=== PATIENT | female | born 1985 ===

== ENCOUNTER 2020-09-16 10:23 | Emergency (ER) | payer OTHER, SELFPAY ==
[2020-09-16 11:04] VITALS: BP 132/71; PULSE 73; RESP 18; TEMP 36.4; O2SAT 99; BMI 30.3
--- NOTE | 2020-09-16 11:07 | ED.EYEPROB ---
HPI - Eye Problem General Chief complaint: Eye Problems Stated complaint: eye issue Time Seen by Provider: 09/16/20 11:07 Source: patient Mode of arrival: ambulatory Limitations: no limitations History of Present Illness HPI Narrative: 35 y/o female presenting with left upper eyelid swelling, pain and redness for the last 10 days. She states it has been wax/waning over this time frame but today she woke up with her eye crusted shut. She was using warm compresses intermittently, last use 2 days ago. She reports blurry vision with the eye discharge today. No foreign body sensation. She has not been wearing her contact lenses in the last 2 weeks. chief complaint: eye pain and eye redness Onset (ago): day(s) (10) Onset description: gradual and awoke with symptoms Duration: constant Location: left eye Eye Symptoms: redness, pain, discharge and blurry vision Place: home Mechanism: none Severity: moderate If Pain, Quality: aching Related Data Previous Rx's Medication Instructions Recorded gentamicin 1 appl OPHTHALMIC-LEFT TID #3.5 g 09/16/20 ibuprofen 600 mg PO Q8H PRN #15 tab 09/16/20 Allergies Allergy/AdvReac Type Severity Reaction Status Date / Time No Known Allergies Allergy Verified 09/16/20 11:06 Review of Systems Review of Systems: Constitutional: No Fever, No Chills ENT/Mouth: No sore throat, No Rhinorrhea, No Swallowing Difficulty Eyes: + Eye Pain, + Swelling, + Redness Skin: No Skin Lesions, No rash Neuro: + Headache Psych: + Anxiety/Panic, No Depression PMFSH Past Medical History Attestation statement: The following information was validated with the patient. Medical History Arthritis Social History Social History Advance Directives: No Advance Directives Information Provided: No Physical Exam Vital Signs: Vital Signs: Last Vital Signs Temp 97.6 F 09/16/20 11:04 Pulse 73 09/16/20 11:04 Resp 18 09/16/20 11:04 BP 132/71 09/16/20 11:04 Pulse Ox 99 09/16/20 11:04 Body Mass Index 30.3 Appearance: Alert. Oriented X3. No acute distress. HEENT: left upper eyelid with swelling and erythema, lid everted with visible pustule, no conjunctival injection, no drainage, EOMI, PERRLA. right eye exam is normal. CVS: Normal heart rate and rhythm. Pulses normal. Respiratory: No respiratory distress. lungs CTAB Skin: Skin warm and dry. Normal skin color. Normal skin turgor. No rashes. Extremities: no lower extremity edema Neuro: Oriented X 3. No motor deficit. No sensory deficit. Course Course Course Narrative: 35 y/o female presenting with hordeolum - will treat with topical abx ointment given new onset of discharge. Advised warm compresses are the mainstay of treatment. She will f/u with her doctor this week. MDM - Eye Problem MDM Narrative Medical decision making narrative: hordeolum Differential Diagnosis Differential diagnosis: Likely corneal abrasion and conjunctivitis Critical Care Time Critical Care Time Critical Care Time: No Discharge Plan Discharge Clinical Impression: Hordeolum Qualifiers: Hordeolum type: externum Laterality: left Eyelid: upper Qualified Code(s): H00.014 - Hordeolum externum left upper eyelid Patient Disposition: Home, Self-Care Instructions: Francie (ED) Additional Instructions: Use warm compresses to your eye several times per day for the next 3-4 days, or until symptoms are completely resolved. Use prescribed antibiotic ointment until symptoms are completely resolved. Do not wear your contacts for the next 10-14 days. Follow up with your doctor this week. Prescriptions: New gentamicin 0.3 % (3 mg/gram) ointment 1 appl ophthalmic-Left TID Qty: 3.5 RF: 0 ibuprofen 600 mg tablet 600 mg PO Q8H PRN (Reason: pain) Qty: 15 RF: 0 Interventions: ED Discharge Assessment Last Done: 09/16/20 11:18 Discharge Date/Time: 09/16/20 11:19
== END 2020-09-16 11:19 | disposition home or self-care (01) ==
PROVIDERS: Emergency Provider Internal Medicine; PCP Family Medicine
DX: H00.014 Hordeolum externum left upper eyelid (principal); H57.12 Ocular pain, left eye; Z79.899 Other long term (current) drug therapy
CPT/HCPCS: 99283

== ENCOUNTER → 2020-10-03 14:16 | Outpatient (BNVA) | payer OTHER, SELFPAY | PROVIDERS: PCP Family Medicine; Visit Provider Anesthesiology | DX: Z76.89 Persons encountering health services in other specified circumstances (principal) | CPT/HCPCS: 99202 ==

== ENCOUNTER 2020-10-04 12:56 | Outpatient (REF) | payer OTHER, SELFPAY | END 2020-10-04 12:57 | disposition home or self-care (01) | LOC: HO.LAB 12:56 | PROVIDERS: Visit Provider Internal Medicine | DX: Z20.828 Contact with and (suspected) exposure to other viral communicable diseases (principal) | CPT/HCPCS: C9803; U0003 ==

== ENCOUNTER → 2020-10-31 15:27 | Outpatient (BNVA) | payer OTHER, SELFPAY | PROVIDERS: PCP Family Medicine; Visit Provider Anesthesiology | DX: M47.816 Spondylosis without myelopathy or radiculopathy, lumbar region (principal); M43.06 Spondylolysis, lumbar region; G89.4 Chronic pain syndrome | CPT/HCPCS: 99212 ==

== ENCOUNTER 2020-11-07 16:20 | Outpatient (REF) | payer OTHER, SELFPAY ==
--- NOTE | 2020-11-07 | MR_ITS ---
EXAMINATION: MR BRAIN WITHOUT CONTRAST CLINICAL INFORMATION: Multiple neurologic symptoms. Paresthesias. Weakness. Fall. COMPARISON: Head CT 08/25/2017. TECHNIQUE: Multiplanar, multisequence imaging of the brain was performed without intravenous contrast. FINDINGS: There is no acute infarction, hemorrhage, mass, or extra-axial fluid collection. The brain parenchyma signal appears normal. The ventricles are normal in size without evidence of hydrocephalus. There is prominence of the midline retrocerebellar subarachnoid space. The cerebellar tonsils are normally positioned above the foramen magnum. The major arterial flow voids appear preserved at the skull base. There is minimal paranasal sinus mucosal thickening without fluid levels. The orbital contents appear normal. MR/MR head/brain wo con IMPRESSION: No acute infarct, mass lesion, intracranial hemorrhage, or evidence of hydrocephalus.
== END 2020-11-07 16:21 | disposition home or self-care (01) ==
LOC: HO.MRI 16:20
PROVIDERS: Visit Provider Family Medicine
DX: R53.1 Weakness (principal); R26.89 Other abnormalities of gait and mobility; R20.2 Paresthesia of skin; F41.9 Anxiety disorder, unspecified; R32 Unspecified urinary incontinence; Z91.81 History of falling
CPT/HCPCS: 70551

== ENCOUNTER → 2020-11-21 16:08 | Outpatient (BNVA) | payer OTHER, SELFPAY | PROVIDERS: PCP Family Medicine; Visit Provider Nurse Practitioner Family | DX: M47.816 Spondylosis without myelopathy or radiculopathy, lumbar region (principal); G89.4 Chronic pain syndrome; Z79.899 Other long term (current) drug therapy | CPT/HCPCS: 99212 ==

== ENCOUNTER → 2020-12-19 14:58 | Outpatient (BNVA) | payer OTHER, SELFPAY | PROVIDERS: PCP Family Medicine; Visit Provider Nurse Practitioner Family | DX: G89.4 Chronic pain syndrome (principal); M47.816 Spondylosis without myelopathy or radiculopathy, lumbar region | CPT/HCPCS: 99212 ==

== ENCOUNTER 2021-01-15 14:14 | Outpatient (REF) | payer OTHER, SELFPAY ==
[2021-01-16 11:16] LABS: SARS COV2 PCR INHOUSE NEGATIVE (Negative)
== END 2021-01-15 14:15 | disposition home or self-care (01) ==
LOC: HO.LAB 14:14
PROVIDERS: Visit Provider Internal Medicine
DX: Z20.822 Contact with and (suspected) exposure to COVID-19 (principal)
CPT/HCPCS: C9803; U0003

== ENCOUNTER → 2021-01-18 08:17 | Outpatient (BNVA) | payer OTHER, SELFPAY | PROVIDERS: PCP Family Medicine; Visit Provider Nurse Practitioner Family | DX: M47.816 Spondylosis without myelopathy or radiculopathy, lumbar region (principal); G89.4 Chronic pain syndrome | CPT/HCPCS: 99212 ==

== ENCOUNTER → 2021-02-13 14:24 | Outpatient (BNVA) | payer OTHER, SELFPAY | PROVIDERS: PCP Family Medicine; Visit Provider Nurse Practitioner Family | DX: G89.4 Chronic pain syndrome (principal); M47.816 Spondylosis without myelopathy or radiculopathy, lumbar region | CPT/HCPCS: 99212 ==

== ENCOUNTER → 2021-03-13 14:37 | Outpatient (BNVA) | payer OTHER, SELFPAY | PROVIDERS: PCP Family Medicine; Visit Provider Nurse Practitioner Family | DX: G89.4 Chronic pain syndrome (principal); M47.816 Spondylosis without myelopathy or radiculopathy, lumbar region; M46.1 Sacroiliitis, not elsewhere classified | CPT/HCPCS: 99212 ==

== ENCOUNTER → 2021-04-10 14:33 | Outpatient (BNVA) | payer OTHER, SELFPAY | PROVIDERS: PCP Family Medicine; Visit Provider Nurse Practitioner Family | DX: M47.816 Spondylosis without myelopathy or radiculopathy, lumbar region (principal); M46.1 Sacroiliitis, not elsewhere classified; G89.4 Chronic pain syndrome | CPT/HCPCS: 99212 ==

== ENCOUNTER 2021-04-12 03:50 | Emergency (ER) | payer OTHER, SELFPAY ==
--- NOTE | 2021-04-12 | ECG_ITS ---
Test Reason : CHEST PAIN Blood Pressure : / mmHG Vent. Rate : 058 BPM Atrial Rate : 058 BPM P-R Int : 150 ms QRS Dur : 080 ms QT Int : 428 ms P-R-T Axes : 033 029 044 degrees QTc Int : 420 ms Sinus bradycardia with sinus arrhythmia Otherwise normal ECG When compared to the previous EKG of No significant changes seen Referred By: Generic ED Physician Electronically Signed By:Janak Ovalles
--- NOTE | ~2021-04-12 | XR_ITS ---
EXAMINATION: XR CHEST, 2 VIEWS CLINICAL INFORMATION: Chest pain, shortness of breath COMPARISON: 07/17/2018 TECHNIQUE: PA and lateral views of the chest were obtained. FINDINGS: Lungs are clear. No consolidation, pneumothorax, or pleural effusion. Cardiac and mediastinal contours are normal. Pulmonary vasculature is unremarkable. Trachea is midline. Osseous structures are unremarkable. XR/XR chest 2V IMPRESSION: Normal chest radiographs.
[2021-04-12 04:09] VITALS: BP 115/80; PULSE 57; RESP 14; TEMP 36.9; O2SAT 98; BMI 29.1
[2021-04-12 04:24] VITALS: PULSE 57
--- NOTE | 2021-04-12 04:32 | PC.NURSE ---
This nurse at bedside with Dr Roque for external vaginal exam. No redness or discharge noted.
--- NOTE | 2021-04-12 04:38 | ED.CHESTPAIN ---
HPI - Chest Pain General Chief Complaint: Chest Pain Stated Complaint: Chest n Lungs tightness, possible UTI as well Time Seen by Provider: 04/12/21 04:09 Source: patient Mode of arrival: ambulatory Limitations: no limitations History of Present Illness HPI narrative: 36-year-old female who presents emergency department for evaluation of chest pain shortness of breath, dyspnea on exertion, vaginal wall pain, vaginal itchiness. Patient states that she has been having chest pain and shortness of breath for 1 year. She states that the the the the symptoms are episodic. She states that over the past week the symptoms have become more severe. She states that the chest pain is located in both anterior and posterior chest, the pain is a constant, pressure-like pain which is worse with breathing and worse with movement. She feels short of breath and has dyspnea on exertion. She denies fever, chills, cough. The patient had gender reassignment surgery and states that she is having redness and pain along the external vaginal wal in the area where she previously had stitches, she also has pruritus in this area She has also noticed a white discharge. She states that she does dilate her vagina as directed by her doctor and she is using a water based gel when she performs this dilation. Related Data Home Medications Medication Instructions Recorded Confirmed methylphenidate HCl 36 mg 36 mg PO QAM 10/03/20 04/10/21 tablet,extended release 24 hr melatonin 5 mg capsule 5 mg PO .hs cap 02/13/21 04/10/21 oxybutynin chloride 10 mg 10 mg PO DAILY 03/13/21 04/10/21 tablet,extended release 24 hr Previous Rx's Medication Instructions Recorded naloxone 4 mg/actuation nasal spray 4 mg INTRANASAL Q2M PRN #2 ea 11/21/20 oxycodone-acetaminophen 5 mg-325 1 tab PO TID PRN 30 Days #90 tab 03/19/21 mg tablet Allergies Allergy/AdvReac Type Severity Reaction Status Date / Time No Known Allergies Allergy Verified 04/10/21 14:50 Review of Systems Review of Systems: Yes all other systems are reviewed and are negative FOR[facility]LY [facility] Past Medical History Source: unable to obtain Medical History (Updated 04/12/21 @ 06:37 by Ronal Roque MD) Arthritis Breast implant in situ Chronic pain syndrome Spondylolysis, 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 Social History Social History Alcohol intake: current Alcohol intake frequency: holidays/special occasions only Alcohol type: wine Patient Tobacco Use Status: Former Tobacco user Use of substances other than those prescribed or required for medical reasons: No Advance Directives: No Advance Directives Information Provided: No Patient : No Physical Exam Vital Signs: Vital Signs: Last Vital Signs Temp 98.5 F 04/12/21 05:04 Pulse 57 04/12/21 05:04 Resp 16 04/12/21 05:04 BP 100/57 L 04/12/21 05:04 Pulse Ox 97 04/12/21 05:04 Body Mass Index 29.1 Const: General: cooperative and healthy appearing Orientation/consciousness: oriented to person and oriented to place Limitations: no limitations HENMT: Head: Yes normal to inspection, Yes normocephalic and Yes atraumatic Ears: external ears normal General nose exam: Normal external nose present Face and sinus: Yes normal facial exam Mouth: Normal oral and palatal mucosa present Throat: Yes posterior oropharynx normal Eyes: Periorbital: periorbital findings normal Eyelids: Yes eyelids normal Conjunctivae: conjunctivae normal Sclerae: sclerae normal Corneas: corneas normal Pupils: Equal, round and reactive pupils present Direct Ophthalmoscopy: normal light reflex Neck: Neck: Yes full ROM, Yes no lymphadenopathy, Yes no meningeal signs, Yes trachea midline and Yes supple Chest: Chest palpation & inspection: normal inspection of the chest and tenderness pectoral muscle, sternum and costal cartilage Resp: Effort & Inspection: normal respiratory effort and able to speak in complete sentences Auscultation: clear to auscultation bilaterally Cardio: Rate: regular rate Rhythm: regular rhythm Heart sounds: S1 normal heart sound present, S2 normal heart sound present and no murmurs GI: Inspection: Yes normal to inspection Palpation (GI): Soft to palpation, nontender, no guarding, not rigid and No hepatosplenomegaly present : Other: The patient's external vaginal skin does not appear to be erythematous or warm to the touch, there is no obvious discharge noted on visual inspection. Back/Spine/Pelvis: Cervical Spine: normal cervical lordosis Thoracic/Lumbar Spine: thoracic and lumbar spine normal to inspection Skin: Lesions: no lesions Rashes: no rashes Wounds: no wounds Neuro: General: oriented to person, oriented to place and no meningeal signs Cranial nerves: Yes CN's II-XII intact bilaterally and Yes Equal, round and reactive pupils present Cognition (Neuro): normal cognition Motor exam (neuro): 5/5 motor strength present throughout Extrem: General: Yes normal to inspection and Yes full ROM Psych: Appearance: well kempt Mental Status: mental status grossly normal Speech and movement: Normal speech and movement present Affect: normal affect Attitude: cooperative Thought process: Normal thought process present Thought content: Normal thought content present Course Course Course Narrative: 36-year-old female who presents emergency department for evaluation of chest pain and shortness of breath with intermittent episodes x1 year, with an episode x1 week. The patient has had gender reassignment surgery and she has also complaining of redness and itchiness to her external vaginal area as well as a whitish discharge from her vagina. Patient's physical examination did reveal chest wall tenderness otherwise was unremarkable. I did order CBC, CMP, troponin, urinalysis EKG and chest x-ray on the patient. MDM - Chest Pain Lab Data Result diagrams: 04/12/21 04:48 04/12/21 04:48 Labs: Lab Results 04/12/21 04/12/21 04/12/21 Range/Units 04:48 04:48 04:48 WBC 10.0 (4.8-10.8) X10*3/uL RBC 4.43 (4.20-5.50) X10*6/uL Hgb 13.9 (12.0-16.0) g/dl Hct 40.6 (37-47) % MCV 91.6 (80-98) fL MCH 31.4 (27.0-33.0) pg MCHC 34.2 (31.0-35.0) g/dl RDW 11.7 (11.0-16.0) % Plt Count 341 (160-400) X10*3/uL MPV 8.7 L (9.4-12.3) fL Immature Gran % (Auto) 0.4 (0.0-0.4) % Neut % (Auto) 52.3 (45-73) % Lymph % (Auto) 34.0 (20-40) % [place] % (Auto) 11.3 H (2-11) % Eos % (Auto) 1.8 (0-4) % Baso % (Auto) 0.2 (0-2) % Lymph # (Auto) 3.4 (1.2-4.9) X10*3/uL [place] # (Auto) 1.1 (0.1-1.2) X10*3/uL Eos # (Auto) 0.2 (0.0-0.4) X10*3/uL Baso # (Auto) 0.0 (0.0-0.2) X10*3/uL Abs Immat Gran (auto) 0.04 H (0.00-0.03) X10*3/uL Absolute Neuts (auto) 5.2 (2.0-8.3) X10*3/uL Absolute Nucleated RBC 0.000 (0.0-0.012) X10*3/uL Nucleated RBC % (auto) 0.0 (0.0-0.2) /100WBC Sodium 140 (135-145) mmol/L Potassium 4.1 (3.3-5.1) mmol/L Chloride 106 (96-108) mmol/L Carbon Dioxide 25 (22-29) mmol/L Anion Gap 13 (12-20) BUN 16 (9-16) mg/dL Creatinine 0.73 (0.5-1.4) mg/dL Estim Creat Clear Calc 116.6 Estimated GFR > 60 Random Glucose 98 (60-115) mg/dL Calcium 9.4 (8.4-10.2) mg/dL Total Bilirubin 0.4 (0.0-1.0) mg/dL AST 18 (5-31) U/L ALT 17 (0-31) U/L Alkaline Phosphatase 85 (39-117) U/L Troponin I High Sens < 3.5 (<3.5-17.0) ng/L Total Protein 6.7 (6.5-8.0) g/dL Albumin 4.3 (3.5-5.0) g/dL Urine Color Urine Appearance Urine pH (5.0-8.0) Ur Specific [place] (1.005-1.025) Urine Protein (NEG-TRACE) MG/DL Urine Glucose (UA) (NEG) MG/DL Urine Ketones (NEG) MG/DL Urine Blood (NEG) Urine Nitrite (NEG) Ur Leukocyte Esterase (NEG) 04/12/21 Range/Units 05:15 WBC (4.8-10.8) X10*3/uL RBC (4.20-5.50) X10*6/uL Hgb (12.0-16.0) g/dl Hct (37-47) % MCV (80-98) fL MCH (27.0-33.0) pg MCHC (31.0-35.0) g/dl RDW (11.0-16.0) % Plt Count (160-400) X10*3/uL MPV (9.4-12.3) fL Immature Gran % (Auto) (0.0-0.4) % Neut % (Auto) (45-73) % Lymph % (Auto) (20-40) % [place] % (Auto) (2-11) % Eos % (Auto) (0-4) % Baso % (Auto) (0-2) % Lymph # (Auto) (1.2-4.9) X10*3/uL [place] # (Auto) (0.1-1.2) X10*3/uL Eos # (Auto) (0.0-0.4) X10*3/uL Baso # (Auto) (0.0-0.2) X10*3/uL Abs Immat Gran (auto) (0.00-0.03) X10*3/uL Absolute Neuts (auto) (2.0-8.3) X10*3/uL Absolute Nucleated RBC (0.0-0.012) X10*3/uL Nucleated RBC % (auto) (0.0-0.2) /100WBC Sodium (135-145) mmol/L Potassium (3.3-5.1) mmol/L Chloride (96-108) mmol/L Carbon Dioxide (22-29) mmol/L Anion Gap (12-20) BUN (9-16) mg/dL Creatinine (0.5-1.4) mg/dL Estim Creat Clear Calc Estimated GFR Random Glucose (60-115) mg/dL Calcium (8.4-10.2) mg/dL Total Bilirubin (0.0-1.0) mg/dL AST (5-31) U/L ALT (0-31) U/L Alkaline Phosphatase (39-117) U/L Troponin I High Sens (<3.5-17.0) ng/L Total Protein (6.5-8.0) g/dL Albumin (3.5-5.0) g/dL Urine Color YELLOW Urine Appearance CLEAR Urine pH 6.0 (5.0-8.0) Ur Specific [place] >= 1.030 H (1.005-1.025) Urine Protein NEG (NEG-TRACE) MG/DL Urine Glucose (UA) NEG (NEG) MG/DL Urine Ketones NEG (NEG) MG/DL Urine Blood NEG (NEG) Urine Nitrite NEG (NEG) Ur Leukocyte Esterase NEG (NEG) ECG Data ECG #1: Attestation: I personally reviewed and interpreted this ECG as follows: Interpretation: 0412: Sinus bradycardia with a rate of 58, normal MT, QRS and QTC intervals, no ST segment elevation, no ST segment depression, no PACs, no PVCs, inverted T-wave in V1, no old EKG for comparison. Discharge Plan Discharge Clinical Impression: Chest pain, Pruritus of vagina Patient Disposition: Home, Self-Care Instructions: Costochondritis (ED) Additional Instructions: Your laboratory evaluation was normal. Your chest x-ray was unremarkable. Your EKG was normal Your urinalysis was normal with no evidence of a urine infection At this time, I believe that your chest pain is caused by inflammation of the joints of your chest (costochondritis). Take ibuprofen 200 mg pills, 3 pills every 6 hours as needed for pain. Take Tylenol (acetaminophen) 500 mg pills, 1 pills every 4 to 6 hours as needed for pain. I do not have a clear cause for the itchiness in your vaginal area, Take Benadryl 25 mg, 1 pill at night to see if this improves the itchiness. Follow-up with your doctor in 2 days, and make sure you discuss the vaginal itchiness with your provider Please return to the emergency department if your symptoms get worse or if you develop any symptoms that are concerning to you. Prescriptions: No Action Narcan 4 mg/actuation spray,non-aerosol 4 mg intranasal Q2M PRN (Reason: opioid overdose) Qty: 2 RF: 0 melatonin 5 mg capsule 5 mg PO .hs RF: 0 oxybutynin chloride 10 mg tablet extended release 24hr 10 mg PO DAILY RF: 0 oxycodone-acetaminophen [Percocet] 5-325 mg tablet 1 tab PO TID PRN (Reason: pain) 30 Days Qty: 90 RF: 0 methylphenidate HCl 36 mg tablet extended release 24hr 36 mg PO QAM RF: 0
[2021-04-12 04:54] LABS: MANUAL DIFF FLAG NO
[2021-04-12 04:56] LABS: Basophils Percent Auto 0.2 % (0-2); Eosinophils Absolute Auto 0.2 X10*3/uL (0.0-0.4); Eosinophils Percent Auto 1.8 % (0-4); Hematocrit 40.6 % (37-47); Hemoglobin 13.9 g/dl (12.0-16.0); Imm Gran Abs Auto 0.04 X10*3/uL (0.00-0.03); Imm Gran Pct Auto 0.4 % (0.0-0.4); Lymphocytes Absolute Auto 3.4 X10*3/uL (1.2-4.9); Mean Corpuscular HGB Conc 34.2 g/dl (31.0-35.0); Mean Corpuscular Hemoglobin 31.4 pg (27.0-33.0); Mean Corpuscular Volume 91.6 fL (80-98); Mean Platelet Volume 8.7 fL (9.4-12.3); Monocytes Absolute Auto 1.1 X10*3/uL (0.1-1.2); Monocytes Percent Auto 11.3 % (2-11); Neutrophils Absolute Auto 5.2 X10*3/uL (2.0-8.3); Neutrophils Percent Auto 52.3 % (45-73); Platelet Count 341 X10*3/uL (160-400); Red Blood Count 4.43 X10*6/uL (4.20-5.50); Red Cell Distribution Width 11.7 % (11.0-16.0)
[2021-04-12 05:04] VITALS: BP 100/57; PULSE 57; RESP 16; TEMP 36.9; O2SAT 97
[2021-04-12 05:18] LABS: Alanine Aminotransferase 17 U/L (0-31); Albumin Level 4.3 g/dL (3.5-5.0); Alkaline Phosphatase 85 U/L (39-117); Anion Gap 13 (12-20); Aspartate Amino Transferase 18 U/L (5-31); Bilirubin Total 0.4 mg/dL (0.0-1.0); Blood Urea Nitrogen 16 mg/dL (9-16); Calcium 9.4 mg/dL (8.4-10.2); Carbon Dioxide 25 mmol/L (22-29); Chloride 106 mmol/L (96-108); Creatinine Clr Calc Pharmacy 116.6; Estimated Glomerular Filt Rate > 60; Glucose Random 98 mg/dL (60-115); Potassium 4.1 mmol/L (3.3-5.1); Sodium 140 mmol/L (135-145); Total Protein 6.7 g/dL (6.5-8.0)
[2021-04-12 05:22] LABS: Glucose Urine UA NEG (NEG); Leukocyte Esterase Urine NEG (NEG); Nitrite Urine NEG (NEG); Specific Gravity - Urine >= 1.030 (1.005-1.025); Urine Blood NEG (NEG); Urine Ketones NEG (NEG); Urine Protein NEG (NEG-TRACE)
[2021-04-12 05:24] LABS: Appearance Urine CLEAR; Color Urine YELLOW
[2021-04-12 05:24] LABS: Troponin-I High Sensitivity < 3.5 ng/L (<3.5-17.0)
== END 2021-04-12 06:56 | disposition home or self-care (01) ==
PROVIDERS: Emergency Provider Emergency Medicine Emergency Medical Services; PCP Family Medicine
DX: R07.9 Chest pain, unspecified (principal); L29.2 Pruritus vulvae
CPT/HCPCS: 36415; 71046; 80053; 81003; 84484; 85025; 93005; 99284

== ENCOUNTER 2021-04-17 01:27 | Emergency (ER) | payer OTHER, SELFPAY ==
[2021-04-17 01:30] VITALS: BP 112/70; PULSE 60; RESP 16; TEMP 36.8; O2SAT 99; BMI 29.0
--- NOTE | 2021-04-17 02:15 | ED.FEMALEGU ---
HPI - Female Genitourinary General Chief complaint: Urogenital-Female Stated complaint: Vaginal Swelling Time Seen by Provider: 04/17/21 01:38 Source: patient Mode of arrival: ambulatory Limitations: no limitations History of Present Illness HPI Narrative: patient transgender male to female noticed small swelling of right labia for last few days was seen here on 04/12 now the swelling is getting bigger and more painful no vaginal discharge no fever no surrounding erythema Related Data Home Medications Medication Instructions Recorded Confirmed methylphenidate HCl 36 mg 36 mg PO QAM 10/03/20 04/10/21 tablet,extended release 24 hr melatonin 5 mg capsule 5 mg PO .hs cap 02/13/21 04/10/21 oxybutynin chloride 10 mg 10 mg PO DAILY 03/13/21 04/10/21 tablet,extended release 24 hr Previous Rx's Medication Instructions Recorded naloxone 4 mg/actuation nasal spray 4 mg INTRANASAL Q2M PRN #2 ea 11/21/20 oxycodone-acetaminophen 5 mg-325 1 tab PO TID PRN 30 Days #90 tab 04/16/21 mg tablet amoxicillin-pot clavulanate 1 tab PO BID #20 tab 04/17/21 [Augmentin] ibuprofen 600 mg PO Q6H PRN #20 tab 04/17/21 Allergies Allergy/AdvReac Type Severity Reaction Status Date / Time No Known Allergies Allergy Verified 04/10/21 14:50 PMFSH Past Medical History Medical History Arthritis Breast implant in situ Chronic pain syndrome Spondylolysis, 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 Social History Social History Alcohol intake: current Alcohol intake frequency: holidays/special occasions only Alcohol type: wine Patient Tobacco Use Status: Former Tobacco user Advance Directives: No Advance Directives Information Provided: No Patient : No Physical Exam Vital Signs: Vital Signs: Last Vital Signs Temp 98.2 F 04/17/21 01:30 Pulse 60 04/17/21 01:30 Resp 16 04/17/21 01:30 BP 112/70 04/17/21 01:30 Pulse Ox 99 04/17/21 01:30 Body Mass Index 29.0 Const: General: comfortable and no acute distress HENMT: Head: Yes normocephalic Resp: Effort & Inspection: normal respiratory effort Cardio: Palpation: normal PMI Rate: regular rate Rhythm: regular rhythm GI: Inspection: Yes normal to inspection Palpation (GI): Soft to palpation and nontender : External Female Exam: external swelling ( right labial fold with small pointing abscess) Procedures Abscess I/D Site: other ( vaginal) Side (if applicable): right Local Anesthetic: lidocaine 2% Amount of anesthesia used (mL): 1 Technique: other ( spontaneous rupture of abscess) Amount of fluid expressed (mL): 1 Sent for culture/gram staining?: No Discharge Plan Discharge Clinical Impression: Abscess of vagina Patient Disposition: Home, Self-Care Instructions: Abscess Incision and Drainage (DC) Additional Instructions: local care as advised take antibiotics for infection. Follow with PCP Prescriptions: New ibuprofen 600 mg tablet 600 mg PO Q6H PRN (Reason: pain) Qty: 20 RF: 0 amoxicillin-pot clavulanate [Augmentin] 875-125 mg tablet 1 tab PO BID Qty: 20 RF: 0 No Action Narcan 4 mg/actuation spray,non-aerosol 4 mg intranasal Q2M PRN (Reason: opioid overdose) Qty: 2 RF: 0 melatonin 5 mg capsule 5 mg PO .hs RF: 0 oxybutynin chloride 10 mg tablet extended release 24hr 10 mg PO DAILY RF: 0 oxycodone-acetaminophen [Percocet] 5-325 mg tablet 1 tab PO TID PRN (Reason: pain) 30 Days Qty: 90 RF: 0 methylphenidate HCl 36 mg tablet extended release 24hr 36 mg PO QAM RF: 0
[2021-04-17] MEDS: Lidocaine HCl 2 % MPF 5 ML VIAL INFILTRATI (02:39)
[2021-04-17] MEDS: Amoxicillin/Potassium Clav 875 MG TABLET PO (02:39)
== END 2021-04-17 03:08 | disposition home or self-care (01) ==
PROVIDERS: Emergency Provider Internal Medicine; PCP Family Medicine
DX: N76.4 Abscess of vulva (principal); N76.0 Acute vaginitis; F64.0 Transsexualism
CPT/HCPCS: 56405; 99283; 99284

== ENCOUNTER 2021-04-17 06:04 | Outpatient (REF) | payer OTHER, SELFPAY ==
--- NOTE | ~2021-04-17 | FL_ITS ---
EXAMINATION: XR FLUOROSCOPY WITH IMAGES CLINICAL INFORMATION: M46.1 - Sacroiliitis, not elsewhere classified COMPARISON: MR lumbar spine 09/01/2019 TECHNIQUE: Fluoroscopy performed by Billie Sher NP. Fluoroscopy time: 0.3 minutes DAP: 3.26 Gycm2 Images: 4 FINDINGS: There are spinal needles overlying the bilateral L5 neural foramina. In addition, there are 2 spinal needles overlying the left mid sacrum and 2 spinal needles overlying the right mid sacrum, likely at the bilateral S1 and S2 foramen. FL/FL guidance in treatment room IMPRESSION: Fluoroscopy for pain management procedures.
== END 2021-04-17 06:05 | disposition home or self-care (01) ==
LOC: HO.RADIR 06:04
PROVIDERS: Visit Provider Internal Medicine
DX: M46.1 Sacroiliitis, not elsewhere classified (principal)
CPT/HCPCS: 27096; J3300; Q9967

== ENCOUNTER → 2021-05-08 14:10 | Outpatient (BNVA) | payer OTHER, SELFPAY | PROVIDERS: PCP Family Medicine; Visit Provider Nurse Practitioner Family | DX: M47.816 Spondylosis without myelopathy or radiculopathy, lumbar region (principal); M46.1 Sacroiliitis, not elsewhere classified; G89.4 Chronic pain syndrome; Z79.899 Other long term (current) drug therapy | CPT/HCPCS: 99212 ==

== ENCOUNTER → 2021-05-24 09:01 | Outpatient (BNVA) | payer OTHER, SELFPAY | PROVIDERS: PCP Family Medicine; Visit Provider Internal Medicine | DX: M46.1 Sacroiliitis, not elsewhere classified (principal) | CPT/HCPCS: 99212 ==

== ENCOUNTER 2021-05-24 09:49 | Emergency (ER) | payer OTHER, SELFPAY ==
[2021-05-24 10:58] VITALS: BP 135/95; PULSE 65; RESP 18; TEMP 37; O2SAT 98; BMI 29.7
--- NOTE | 2021-05-24 11:37 | ED.WOUNDLAC ---
HPI - Wound/Laceration General Chief Complaint: Wound/Laceration Stated Complaint: pt had surgery, most likley pulled stitches Time Seen by Provider: 05/24/21 11:37 Source: patient Mode of arrival: ambulatory Limitations: no limitations History of Present Illness HPI narrative: Patient presents to ED for evaluation of her breast implants. Patient states she was doing some house works and thinks some of the stitches came out. Patient had surgery on the 16 of May. Patient states no nipple discharge, breast swelling, redness, chest pain, shortness of breath, swellling of lower extremities, pain on inspiration calf pain, coughing up blood, fever, or chills. Related Data Home Medications Medication Instructions Recorded Confirmed methylphenidate HCl 36 mg 36 mg PO QAM 10/03/20 05/08/21 tablet,extended release 24 hr melatonin 5 mg capsule 5 mg PO .hs cap 02/13/21 05/08/21 oxybutynin chloride 10 mg 10 mg PO DAILY 03/13/21 05/08/21 tablet,extended release 24 hr Previous Rx's Medication Instructions Recorded naloxone 4 mg/actuation nasal 4 mg INTRANASAL Q2M PRN #2 ea 11/21/20 spray (Narcan) ibuprofen 600 mg tablet 600 mg PO Q6H PRN #20 tab 04/17/21 oxycodone-acetaminophen 5 mg-325 1 tab PO TID PRN 30 Days #90 tab 05/08/21 mg tablet (Percocet) Allergies Allergy/AdvReac Type Severity Reaction Status Date / Time No Known Allergies Allergy Verified 05/24/21 09:20 Review of Systems Review of Systems: Yes all other systems are reviewed and are negative Constitutional: Constitutional: Reports as per HPI and Reports no additional constitutional complaints Eyes: Eyes: Reports as per HPI and Reports no additional eye complaints ENT: Reports system reviewed and no additional complaints, except as documented and Reports as per HPI Cardiovascular: Cardiovascular: Reports as per HPI and Reports no additional cardiovascular complaints Respiratory: Respiratory: Reports as per HPI and Reports no additional respiratory complaints Gastrointestinal: Gastrointestinal: Reports as per HPI and Reports no additional gastrointestinal complaints Musculoskeletal: Musculoskeletal: Reports no additional musculoskeletal complaints and Reports as per HPI Integumentary/Breasts: Skin/Breast: Reports system reviewed and no additional complaints, except as docu and Reports as per HPI Comments: Stitches Neurologic: Reports system reviewed and no additional complaints, except as documented and Reports as per HPI Psychiatric: Psychiatric: Reports no additional psychiatric complaints and Reports as per HPI [facility] Past Medical History Medical History Arthritis Breast implant in situ Chronic pain syndrome Spondylolysis, 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 Social History Social History Alcohol intake: current Alcohol intake frequency: holidays/special occasions only Alcohol type: wine Patient Tobacco Use Status: Former Tobacco user Advance Directives: Yes Advance Directives Information Provided: Yes Advance Directives on File: No Patient : No Physical Exam Vital Signs: Vital Signs: Last Vital Signs Temp 98.6 F 05/24/21 10:58 Pulse 65 05/24/21 10:58 Resp 18 05/24/21 10:58 BP 135/95 H 05/24/21 10:58 Pulse Ox 98 05/24/21 10:58 Body Mass Index 29.7 Const: General: cooperative, healthy appearing, comfortable, no acute distress, well developed, alert and awake Orientation/consciousness: patient oriented x3 HENMT: Head: Yes normal to inspection, Yes No palpable skull fracture present, Yes normocephalic and Yes atraumatic Ears: hearing grossly normal bilaterally, external ears normal and TM's normal bilaterally Eyes: General: appearance normal, both eyes and all related structures Neck: Neck: Yes normal visual inspection, Yes full ROM, Yes no lymphadenopathy, Yes no meningeal signs, Yes trachea midline, Yes supple and No tender Chest: Chest palpation & inspection: normal inspection of the chest and normal palpation of entire chest wall Chest/axillae images: 1. Patient has stitches that were stithced inward. Positive for mild wound dehiscence some stitches missing. Breast negative for any erythema, swelling, tenderness, pus discharge, nipple discharge or deformity. 2. Patient has stitches that were stitched inward. Positive for mild wound dehiscence some stitches missing. Breast negative for any erythema, swelling, tenderness, pus discharge, nipple discharge or deformity. Resp: Effort & Inspection: normal respiratory effort and able to speak in complete sentences Cardio: Jugular venous distension: no JVD Heart sounds: S1 normal heart sound present and S2 normal heart sound present GI: Inspection: Yes normal to inspection and No abdominal wall ecchymosis Palpation (GI): Soft to palpation, not firm, nontender, no guarding and not rigid : General: No CVA tenderness and Yes no CVA tenderness Back/Spine/Pelvis: Back: no CVA tenderness, No CVA tenderness and No back tenderness Skin: General skin exam: no rashes or lesions noted and elasticity normal Neuro: General: patient oriented x3, gait normal, no meningeal signs and CN's II-XI intact bilaterally Cranial nerves: Yes CN's II-XII intact bilaterally Extrem: General: Yes normal to inspection and Yes full ROM Psych: Appearance: grossly normal, well kempt and not disheveled Course Course Course Narrative: Breast evaluated. Reevaluation(s) Reevaluation #1: Positive for mild wound dehiscence. Negative for signs of cellulitis or abscess. Patient is safe for discharge Time: 11:51 MDM - Wound/Laceration MDM Narrative Medical decision making narrative: Wound dehiscence Discharge Plan Discharge Clinical Impression: Dehiscence of wound Patient Disposition: Home, Self-Care Instructions: Wound Dehiscence (ED) Additional Instructions: Your breast exam negative for signs of infection. You have mild wound dehiscence which does not require any further management. Please follow-up with your surgeon. Return to the ED for any chest pain, shortness of breath, swelling of breast, redness, pus discharge, foul odor, fever, chills, leg swelling, calf pain, chest on inspiration, coughing up blood, or any other concerning symptoms. Prescriptions: No Action ibuprofen 600 mg tablet 600 mg PO Q6H PRN (Reason: pain) Qty: 20 RF: 0 Narcan 4 mg/actuation spray,non-aerosol 4 mg intranasal Q2M PRN (Reason: opioid overdose) Qty: 2 RF: 0 melatonin 5 mg capsule 5 mg PO .hs RF: 0 oxybutynin chloride 10 mg tablet extended release 24hr 10 mg PO DAILY RF: 0 methylphenidate HCl 36 mg tablet extended release 24hr 36 mg PO QAM RF: 0 oxycodone-acetaminophen [Percocet] 5-325 mg tablet 1 tab PO TID PRN (Reason: pain) 30 Days Qty: 90 RF: 0 Interventions: ED Discharge Assessment Last Done: 05/24/21 11:59 Discharge Date/Time: 05/24/21 12:00 Print Language: Pakistani
== END 2021-05-24 12:00 | disposition home or self-care (01) ==
PROVIDERS: Emergency Provider Emergency Medicine Emergency Medical Services; PCP Family Medicine
DX: T81.31XA Disruption of external operation (surgical) wound, not elsewhere classified, initial encounter (principal); Z98.82 Breast implant status
CPT/HCPCS: 99283

== ENCOUNTER 2021-05-26 22:00 | Emergency (ER) | payer OTHER, SELFPAY ==
--- NOTE | ~2021-05-26 | XR_ITS ---
EXAMINATION: XR ANKLE, RIGHT CLINICAL INFORMATION: Ankle pain with question fracture COMPARISON: Right ankle radiographs 02/25/2018 TECHNIQUE: AP, lateral, and mortise views of the right ankle. FINDINGS: The bones and soft tissues are normal aside from mild soft tissue swelling laterally. No fracture. Alignment is anatomic. Joint spaces are maintained. No joint effusion. XR/XR ankle RT 2V IMPRESSION: Lateral soft tissue swelling. No osseous abnormality.
[2021-05-26 22:51] VITALS: BP 108/70; PULSE 70; RESP 16; TEMP 36.7; O2SAT 98; BMI 30.7
--- NOTE | 2021-05-27 00:25 | ED_ITS ---
HPI - Extremity Injury (Lower) General Chief Complaint: Extremity Injury, Lower Stated Complaint: fall Time Seen by Provider: 05/26/21 23:31 Source: patient Mode of arrival: ambulatory Limitations: no limitations History of Present Illness HPI Narrative: 36-year-old female with past medical history of chronic pain syndrome presents with right ankle and knee pain after falling through the floor boards on her porch. She has right ankle swelling and pain, is able to walk but with a limp, and has some knee pain. She does not report any other injuries from the fall. MD complaint: knee injury and ankle injury Onset (ago): hour(s) (Within the hour of arrival) Type of Injury: blunt Place: home Severity: moderate Severity scale (1-10): 6 Relieving factors: nothing Exacerbating factors: weight bearing, movement and palpation Context: fall Associated symptoms: swelling and able to partially bear weight Other symptoms: none Related Data Home Medications Medication Instructions Recorded Confirmed methylphenidate HCl 36 mg 36 mg PO QAM 10/03/20 05/08/21 tablet,extended release 24 hr melatonin 5 mg capsule 5 mg PO .hs cap 02/13/21 05/08/21 oxybutynin chloride 10 mg 10 mg PO DAILY 03/13/21 05/08/21 tablet,extended release 24 hr Previous Rx's Medication Instructions Recorded naloxone 4 mg/actuation nasal 4 mg INTRANASAL Q2M PRN #2 ea 11/21/20 spray (Narcan) ibuprofen 600 mg tablet 600 mg PO Q6H PRN #20 tab 04/17/21 oxycodone-acetaminophen 5 mg-325 1 tab PO TID PRN 30 Days #90 tab 05/08/21 mg tablet (Percocet) ibuprofen 600 mg tablet 600 mg PO Q6H PRN #60 tab 05/27/21 Allergies Allergy/AdvReac Type Severity Reaction Status Date / Time No Known Allergies Allergy Verified 05/26/21 22:51 Review of Systems Review of Systems: Constitutional: No Fever, No Chills ENT/Mouth: No Ear Pain, No Hoarseness, No sore throat Eyes: No Eye Pain, No Swelling, No Redness, No Foreign Body Cardiovascular: No Chest Pain, No SOB Respiratory: No Cough, No Dyspnea Gastrointestinal: No Nausea, No Vomiting, No Diarrhea, No abdominal Pain Genitourinary: No Dysuria, No Hematuria Musculoskeletal: positive right ankle and bilateral pain, No Myalgias, No Joint Swelling Skin: No Skin lacerations, No rash Neuro: No Weakness, No Numbness, No Paresthesias, No Loss of Consciousness, No Dizziness, No Headache Psych: No Anxiety/Panic, No Depression Heme/Lymph: no easy bruising, no Lymphadenopathy Endocrine: No Polyuria, No Polydipsia [facility] Past Medical History Attestation statement: The following information was validated with the patient. 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 Oriented X3. No acute distress. Eyes: Pupils equal, round and reactive to light. ENT: Pharynx normal. Neck: Normal inspection. Neck supple. CVS: Normal heart rate and rhythm. Pulses normal. Respiratory: No respiratory distress. Breath sounds normal. Abdomen: Soft and nontender. Skin: Skin warm and dry. Normal skin color. Normal skin turgor. Extremities: Right lateral malleolar process swelling, bruising, and tenderness to palpation. Decreased flexion extension internal and external rotation secondary to swelling and pain. Brisk capillary refill and equal pulses to bilateral lower extremities. Neuro: No motor deficit. No sensory deficit. Course Course Course Narrative: 36-year-old female presents with right ankle injury after fall ing through some porch boards at her home. X-rays are negative for fracture and dislocation, physical presentation is consistent with sprain with swelling, bruising, and decreased range of motion to the right lower extremity. She is describing bilateral knee pain, but physical exam is negative with negative anterior-posterior drawers bilaterally and no indication of bruising, swelling, or tenderness to palpation. Order for Rocco wrap, air splint, patient does have a cane with her at this time. Patient verbalizes understanding of and agrees to plan of care discharge home. MDM - Extremity Injury (Lower) Differential Diagnosis Differential diagnosis: Likely ankle sprain and strain and ankle fracture Medical Records Attestation: I reviewed the patient's medical records. Imaging Data Ankle x-ray: Attestation: I personally reviewed and interpreted this imaging study as follows: Radiologist's impression: EXAMINATION: XR ANKLE, RIGHT CLINICAL INFORMATION: Ankle pain with question fracture? COMPARISON: Right ankle radiographs 02/25/2018? TECHNIQUE: AP, lateral, and mortise views of the right ankle. FINDINGS: The bones and soft tissues are normal aside from mild soft tissue swelling laterally. No fracture. Alignment is anatomic. Joint spaces are maintained. No joint effusion.? XR/XR ankle RT 2V IMPRESSION: Lateral soft tissue swelling. No osseous abnormality. Discharge Plan Discharge Clinical Impression: Ankle sprain and strain Patient Disposition: Home, Self-Care Instructions: Ankle Sprain (ED), Ankle Stirrup Splint (ED) Additional Instructions: You were evaluated for injury sustained from falling through your porch floor. Your x-rays are negative for fracture and dislocation. Your presentation is consistent with an ankle sprain. Please use Rocco wrap and stirrup air splint for comfort. Take Motrin 600 mg every 6 hours as needed for pain management. Rest ice and elevate the ankle to help reduce pain and swelling. Thank you for choosing this emergency department for evaluation. Please follow-up with primary care physician as needed. Return to the emergency department for any new, concerning, or worsening symptoms. Prescriptions: New ibuprofen 600 mg tablet 600 mg PO Q6H PRN (Reason: pain) Qty: 60 RF: 0 No Action ibuprofen 600 mg tablet 600 mg PO Q6H PRN (Reason: pain) Qty: 20 RF: 0 Narcan 4 mg/actuation spray,non-aerosol 4 mg intranasal Q2M PRN (Reason: opioid overdose) Qty: 2 RF: 0 melatonin 5 mg capsule 5 mg PO .hs RF: 0 oxybutynin chloride 10 mg tablet extended release 24hr 10 mg PO DAILY RF: 0 methylphenidate HCl 36 mg tablet extended release 24hr 36 mg PO QAM RF: 0 oxycodone-acetaminophen [Percocet] 5-325 mg tablet 1 tab PO TID PRN (Reason: pain) 30 Days Qty: 90 RF: 0
== END 2021-05-27 01:08 | disposition home or self-care (01) ==
PROVIDERS: Emergency Provider Internal Medicine; PCP Family Medicine
DX: S93.401A Sprain of unspecified ligament of right ankle, initial encounter (principal); M25.571 Pain in right ankle and joints of right foot; W01.0XXA Fall on same level from slipping, tripping and stumbling without subsequent striking against object, initial encounter; Y93.9 Activity, unspecified; Y92.009 Unspecified place in unspecified non-institutional (private) residence as the place of occurrence of the external cause; Y99.9 Unspecified external cause status; Z79.899 Other long term (current) drug therapy; Z87.891 Personal history of nicotine dependence
CPT/HCPCS: 29515; 73600; 99284

== ENCOUNTER 2021-05-30 11:11 | Outpatient (REF) | payer OTHER, SELFPAY | END 2021-05-30 11:12 | disposition home or self-care (01) | LOC: HO.LAB 11:11 | PROVIDERS: PCP Family Medicine; Visit Provider Internal Medicine | DX: Z20.822 Contact with and (suspected) exposure to COVID-19 (principal) | CPT/HCPCS: C9803; U0003; U0005 ==

== ENCOUNTER → 2021-06-12 13:22 | Outpatient (BNVA) | payer OTHER, SELFPAY | PROVIDERS: PCP Family Medicine; Visit Provider Anesthesiology | DX: G89.4 Chronic pain syndrome (principal); M47.816 Spondylosis without myelopathy or radiculopathy, lumbar region; M46.1 Sacroiliitis, not elsewhere classified; Z79.899 Other long term (current) drug therapy | CPT/HCPCS: 99212 ==

== ENCOUNTER 2021-06-19 06:06 | Outpatient (REF) | payer OTHER, SELFPAY ==
--- NOTE | ~2021-06-19 | FL_ITS ---
EXAMINATION: FL FLUOROSCOPY WITH IMAGES CLINICAL INFORMATION: Sacroiliitis. COMPARISON: Previous exam 04/17/2021. TECHNIQUE: Fluoroscopy performed by Billie Sher NP. Fluoroscopy time: 0.3 minutes DAP: 3 Gycm2 Images: 4 FINDINGS: Images demonstrate needle placement projecting over the bilateral proximal sacrum. FL/FL guidance in treatment room IMPRESSION: Fluoroscopy guidance for pain management procedure.
== END 2021-06-19 06:07 | disposition home or self-care (01) ==
LOC: HO.RADIR 06:06
PROVIDERS: Visit Provider Internal Medicine
DX: M46.1 Sacroiliitis, not elsewhere classified (principal)
CPT/HCPCS: 27096; J1040

== ENCOUNTER 2021-06-24 19:30 | Emergency (ER) | payer OTHER, SELFPAY ==
[2021-06-24 19:34] VITALS: BP 116/78; PULSE 73; RESP 20; TEMP 35.8; O2SAT 96; BMI 29.7
[2021-06-24 20:54] VITALS: BP 114/63; PULSE 83; RESP 16; TEMP 36.4; O2SAT 97
--- NOTE | 2021-06-24 21:32 | PC.NURSE ---
PT HAS MULTIPLE COMPLAINTS. STATES STARTED VAPING AND HAS BEEN HAVING SKIN COLOR CHANGES IN LEGS, TINGLING, BRUSING AND LEGS FEEL LIKE VIENS ARE WEAK PT REPORTS ANXIETY ATTCK LAST NIGHT. PPP. MCELROY. AMBULATES WITH STEADY GAIT. RESP UNLABORED. SKIN COLOR WNL.
--- NOTE | 2021-06-24 21:34 | ED.ANXIETY ---
HPI - Anxiety General Chief Complaint: Anxiety Stated Complaint: odd bruising Time Seen by Provider: 06/24/21 21:33 Source: patient Mode of arrival: ambulatory Limitations: no limitations History of Present Illness HPI narrative: Patient history of anxiety complaining with multiple complaints Simmons that she has patches bruising off and on for long time think she has a blood disorder start vaping since yesterday Related Data Home Medications Medication Instructions Recorded Confirmed methylphenidate HCl 36 mg 36 mg PO QAM 10/03/20 06/19/21 tablet,extended release 24 hr melatonin 5 mg capsule 5 mg PO .hs cap 02/13/21 06/19/21 oxybutynin chloride 10 mg 10 mg PO DAILY 03/13/21 06/19/21 tablet,extended release 24 hr Previous Rx's Medication Instructions Recorded naloxone 4 mg/actuation nasal 4 mg INTRANASAL Q2M PRN #2 ea 11/21/20 spray (Narcan) ibuprofen 600 mg tablet 600 mg PO Q6H PRN #20 tab 04/17/21 ibuprofen 600 mg tablet 600 mg PO Q6H PRN #60 tab 05/27/21 oxycodone-acetaminophen 5 mg-325 1 tab PO TID PRN 30 Days #90 tab 06/13/21 mg tablet (Percocet) Allergies Allergy/AdvReac Type Severity Reaction Status Date / Time No Known Allergies Allergy Verified 06/24/21 19:44 Review of Systems Review of Systems: Yes all other systems are reviewed and are negative [facility] Past Medical History Medical History Arthritis Breast implant in situ Chronic pain syndrome Spondylolysis, 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 Oriented X3. No acute distress. Anxious Eyes: PERRLA, No Nystagmus ENT: Pharynx normal. Oral Mucosa moist Neck: Normal inspection. Neck supple. CVS: Normal heart rate and rhythm. Pulses normal. Respiratory: No respiratory distress. Equal air entry bilateral, no wheezing/rales/rhonchi Abdomen: Soft and nontender. Bowel sounds are present, no mass palpable, no CVA tenderness Skin: Skin warm and dry. Normal skin color. Normal skin turgor. Few bruises lower extremity of different duration Extremities: No lower extremity edema. No calf tenderness Neuro: Oriented X 3. No motor deficit. No sensory deficit.No cerebellar signs , cranial nerves II-XII intact MDM - Anxiety MDM Narrative Medical decision making narrative: Patient's symptoms likely from anxiety. Patient had previous labs done in 04/08 normal CBC and platelet count Discharge Plan Discharge Clinical Impression: Anxiety Patient Disposition: Home, Self-Care Instructions: Anxiety (ED) Additional Instructions: Follow with PCP Prescriptions: No Action ibuprofen 600 mg tablet 600 mg PO Q6H PRN (Reason: pain) Qty: 60 RF: 0 ibuprofen 600 mg tablet 600 mg PO Q6H PRN (Reason: pain) Qty: 20 RF: 0 Narcan 4 mg/actuation spray,non-aerosol 4 mg intranasal Q2M PRN (Reason: opioid overdose) Qty: 2 RF: 0 melatonin 5 mg capsule 5 mg PO .hs RF: 0 oxybutynin chloride 10 mg tablet extended release 24hr 10 mg PO DAILY RF: 0 methylphenidate HCl 36 mg tablet extended release 24hr 36 mg PO QAM RF: 0 oxycodone-acetaminophen [Percocet] 5-325 mg tablet 1 tab PO TID PRN (Reason: pain) 30 Days Qty: 90 RF: 0
== END 2021-06-24 22:29 | disposition home or self-care (01) ==
PROVIDERS: Emergency Provider Internal Medicine; PCP Family Medicine
DX: F41.9 Anxiety disorder, unspecified (principal); F64.0 Transsexualism; F17.290 Nicotine dependence, other tobacco product, uncomplicated
CPT/HCPCS: 99283; 99284

== ENCOUNTER 2021-07-03 13:37 | Outpatient (REF) | payer OTHER, SELFPAY | END 2021-07-03 13:38 | disposition home or self-care (01) | LOC: HO.LAB 13:37 | PROVIDERS: PCP Family Medicine; Visit Provider Internal Medicine | DX: Z20.822 Contact with and (suspected) exposure to COVID-19 (principal) | CPT/HCPCS: C9803; U0003; U0005 ==

== ENCOUNTER → 2021-07-10 15:14 | Outpatient (BNVA) | payer OTHER, SELFPAY | PROVIDERS: PCP Family Medicine; Visit Provider Anesthesiology | DX: Z51.81 Encounter for therapeutic drug level monitoring (principal); M47.816 Spondylosis without myelopathy or radiculopathy, lumbar region; M46.1 Sacroiliitis, not elsewhere classified; G89.4 Chronic pain syndrome | CPT/HCPCS: 99212 ==

== ENCOUNTER → 2021-07-26 09:08 | Outpatient (BNVA) | payer OTHER, SELFPAY | PROVIDERS: PCP Family Medicine; Visit Provider Internal Medicine | DX: M43.06 Spondylolysis, lumbar region (principal) | CPT/HCPCS: 99212 ==

== ENCOUNTER → 2021-08-05 14:23 | Outpatient (BNVA) | payer OTHER, SELFPAY | PROVIDERS: PCP Family Medicine; Visit Provider Internal Medicine | DX: G56.03 Carpal tunnel syndrome, bilateral upper limbs (principal); G89.4 Chronic pain syndrome; M43.06 Spondylolysis, lumbar region | CPT/HCPCS: 99212 ==

== ENCOUNTER → 2021-08-26 09:26 | Outpatient (BNVA) | payer OTHER, SELFPAY | PROVIDERS: PCP Family Medicine; Visit Provider Internal Medicine | DX: M47.816 Spondylosis without myelopathy or radiculopathy, lumbar region (principal) | CPT/HCPCS: Q3014 ==

== ENCOUNTER 2021-08-28 06:53 | Outpatient (REF) | payer OTHER, SELFPAY ==
--- NOTE | ~2021-08-28 | FL_ITS ---
EXAMINATION: XR FLUOROSCOPY WITH IMAGES CLINICAL INFORMATION: M43.06 - Spondylolysis, lumbar region COMPARISON: Fluoroscopic spot views 06/19/2021, MR lumbar spine 09/01/2019 TECHNIQUE: Fluoroscopy performed by Dr. Mcleod. Fluoroscopy time: 0.4 minutes DAP: 1.68 Gycm2 Images: 3 FINDINGS: There are spinal needles overlying the bilateral outer L3, L4, and L5 neural foramen. There is contrast seen in the respective nerve sheaths. Some early transforaminal epidural extension is suggested. No visible vascular communication. FL/FL guidance in treatment room IMPRESSION: Fluoroscopy for pain management procedures.
== END 2021-08-28 06:54 | disposition home or self-care (01) ==
LOC: HO.RADIR 06:53
PROVIDERS: Visit Provider Internal Medicine
DX: M43.06 Spondylolysis, lumbar region (principal)
CPT/HCPCS: 64493; 64494; 64495; Q9967

== ENCOUNTER → 2021-09-04 10:20 | Outpatient (BNVA) | payer OTHER, SELFPAY | PROVIDERS: PCP Family Medicine; Visit Provider Nurse Practitioner Family | DX: Z51.81 Encounter for therapeutic drug level monitoring (principal); M47.816 Spondylosis without myelopathy or radiculopathy, lumbar region; M46.1 Sacroiliitis, not elsewhere classified; G89.4 Chronic pain syndrome | CPT/HCPCS: 99212 ==

== ENCOUNTER 2021-09-18 14:58 | Outpatient (REF) | payer OTHER, SELFPAY | END 2021-09-18 14:59 | disposition home or self-care (01) | LOC: HO.LAB 14:58 | PROVIDERS: Visit Provider Internal Medicine | DX: Z20.822 Contact with and (suspected) exposure to COVID-19 (principal) | CPT/HCPCS: C9803; U0003; U0005 ==

== ENCOUNTER → 2021-10-04 08:07 | Outpatient (BNVA) | payer OTHER, SELFPAY | PROVIDERS: PCP Family Medicine; Visit Provider Nurse Practitioner Family | DX: Z51.81 Encounter for therapeutic drug level monitoring (principal); F11.20 Opioid dependence, uncomplicated; M46.1 Sacroiliitis, not elsewhere classified; M47.816 Spondylosis without myelopathy or radiculopathy, lumbar region; G89.4 Chronic pain syndrome | CPT/HCPCS: 99212 ==

== ENCOUNTER 2021-10-18 05:57 | Emergency (ER) | payer OTHER, SELFPAY ==
--- NOTE | ~2021-10-18 | XR_ITS ---
EXAMINATION: XR FOOT, RIGHT CLINICAL INFORMATION: Increasing pain COMPARISON: X-ray right foot August 2017 TECHNIQUE: AP, lateral, and oblique views of the right foot. FINDINGS: The bones and soft tissues are normal. No fracture. Alignment is anatomic. Joint spaces are maintained. XR/XR foot RT 2V IMPRESSION: Normal right foot.
[2021-10-18 06:52] VITALS: BP 134/82; PULSE 108; RESP 16; TEMP 36.7; O2SAT 98; BMI 29.0
--- NOTE | 2021-10-18 07:19 | PC.NURSE ---
Pt received: Pt AOX4 and offers minimal c/o cough and ankle pain. No swelling or deformity noted. Pt able to ambulate into stretcher with no difficulty. No cough noted. Pt able to communicate with no respiratory distress.
[2021-10-18 07:28] LABS: COVID-19 Test Negative (Negative)
--- NOTE | 2021-10-18 07:55 | ED.URI ---
HPI - URI/Sore Throat General Chief Complaint: General Medical Stated Complaint: R Foot pain/Bodyaches/Cough Time Seen by Provider: 10/18/21 07:36 Source: patient Mode of arrival: ambulatory Limitations: no limitations History of Present Illness MD elicited complaint: sore throat and other Onset (ago): day(s) (2) Consistency: constant Severity: mild Able to tolerate fluids by mouth: Yes Exacerbating factors: swallowing Relieving factors: nothing Context: sick contacts Associated symptoms: denies other symptoms Treatments prior to arrival: none Related Data Home Medications Medication Instructions Recorded Confirmed methylphenidate HCl 36 mg 36 mg PO QAM 10/03/20 10/04/21 tablet,extended release 24 hr melatonin 5 mg capsule 5 mg PO .hs cap 02/13/21 10/04/21 oxybutynin chloride 10 mg 10 mg PO DAILY 03/13/21 10/04/21 tablet,extended release 24 hr Previous Rx's Medication Instructions Recorded naloxone 4 mg/actuation nasal 4 mg INTRANASAL Q2M PRN #2 ea 11/21/20 spray (Narcan) ibuprofen 600 mg tablet 600 mg PO Q6H PRN #20 tab 04/17/21 oxycodone-acetaminophen 5 mg-325 1 tab PO TID PRN 30 Days #90 tab 10/04/21 mg tablet (Percocet) diclofenac sodium 1 % topical gel 2 g TOPICAL TID PRN #100 g 10/18/21 (Voltaren Arthritis Pain) Allergies Allergy/AdvReac Type Severity Reaction Status Date / Time No Known Allergies Allergy Verified 10/04/21 08:25 Review of Systems Review of Systems: Constitutional : no Fever, no Chills, no fatigue, no Malaise ENT/Mouth : pos sore throat, no runny nose Eyes: No Discharge Cardiovascular : No Chest Pain, No SOB Respiratory : No Cough, No Sputum Gastrointestinal : No Nausea, No Vomiting, No Diarrhea Genitourinary : No Dysuria, No Urinary Frequency Musculoskeletal : positive Myalgia, pos joint pain Skin : No rash Neuro : No Headache PMFSH Past Medical History Medical History Arthritis Breast implant in situ Carpal tunnel syndrome, bilateral Chronic pain syndrome Spondylolysis, 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 Oriented X3. No acute distress. Eyes: Pupils equal, round and reactive to light. ENT: Pharynx mild erythema Neck: Normal inspection. Neck supple. CVS: Normal heart rate and rhythm. Pulses normal. Respiratory: No respiratory distress. Breath sounds normal. Abdomen: Soft and nontender. Skin: Skin warm and dry. Normal skin color. Normal skin turgor. Extremities: No lower extremity edema. R lateral foot mild ttp along 5th metatarsal Neuro: Oriented X 3. No motor deficit. No sensory deficit. MDM - URI/Sore Throat MDM Narrative Medical decision making narrative: 36 yo female with multiple pain complaints - here with R foot pain xray negative not toxic no signs of infection also c/o dry cough and sore throat - her throat looks not swollen no patches - covid and strep ordered, likely viral - at this time not toxic can follow up with PCP Lab Data Labs: Lab Results 10/18/21 10/18/21 Range/Units 07:00 07:57 COVID-19 (ELVIS) Negative (Negative) COVID-19 Clin Com See Note S. pyogenes GrpA GREGORY Negative (Negative) Discharge Plan Discharge Clinical Impression: Acute viral pharyngitis, Acute pain of right foot Patient Disposition: Home, Self-Care Instructions: Pharyngitis (ED), Arthralgia (ED) Additional Instructions: return to ED for any worsening symptoms or concerns foot xray negative COVID and strep swab negative Prescriptions: New diclofenac sodium [Voltaren Arthritis Pain] 1 % gel 2 g topical TID PRN (Reason: Pain, Moderate) Qty: 100 RF: 0 No Action ibuprofen 600 mg tablet 600 mg PO Q6H PRN (Reason: pain) Qty: 20 RF: 0 Narcan 4 mg/actuation spray,non-aerosol 4 mg intranasal Q2M PRN (Reason: opioid overdose) Qty: 2 RF: 0 melatonin 5 mg capsule 5 mg PO .hs RF: 0 oxybutynin chloride 10 mg tablet extended release 24hr 10 mg PO DAILY RF: 0 methylphenidate HCl 36 mg tablet extended release 24hr 36 mg PO QAM RF: 0 oxycodone-acetaminophen [Percocet] 5-325 mg tablet 1 tab PO TID PRN (Reason: pain (scale score 7-10)) 30 Days Qty: 90 RF: 0 Referrals: Sudha Richardson MD [Primary Care Provider] - 5 days (if not better)
[2021-10-18 08:16] LABS: IDNOW Serial# 9DD0AD1C
[2021-10-18 08:17] LABS: Strep A Nucleic Acid Negative (Negative)
== END 2021-10-18 08:48 | disposition home or self-care (01) ==
PROVIDERS: Emergency Provider Emergency Medicine; PCP Family Medicine
DX: J02.8 Acute pharyngitis due to other specified organisms (principal); M79.671 Pain in right foot; Z20.822 Contact with and (suspected) exposure to COVID-19
CPT/HCPCS: 36415; 73620; 87635; 87651; 99283

== ENCOUNTER 2021-10-24 14:00 | Outpatient (REF) | payer OTHER, SELFPAY ==
[2021-10-24 15:53] LABS: Binax Internal Control QC Valid; Binax Now Covid-19 Ag Negative (Negative)
== END 2021-10-24 14:01 | disposition home or self-care (01) ==
LOC: HO.LAB 14:00
PROVIDERS: Visit Provider Internal Medicine
DX: Z20.822 Contact with and (suspected) exposure to COVID-19 (principal)
CPT/HCPCS: 36415; C9803

== ENCOUNTER 2021-11-06 09:33 | Outpatient (REF) | payer OTHER, SELFPAY ==
[2021-11-06 10:01] LABS: COVID-19 Test Negative (Negative)
== END 2021-11-06 09:34 | disposition home or self-care (01) ==
LOC: HO.LAB 09:33
PROVIDERS: Visit Provider Internal Medicine
DX: Z20.822 Contact with and (suspected) exposure to COVID-19 (principal)
CPT/HCPCS: 87635; C9803

== ENCOUNTER → 2021-11-13 11:30 | Outpatient (BNVA) | payer OTHER, SELFPAY | PROVIDERS: PCP Family Medicine; Visit Provider Nurse Practitioner Family | DX: Z51.81 Encounter for therapeutic drug level monitoring (principal); F11.20 Opioid dependence, uncomplicated; M47.816 Spondylosis without myelopathy or radiculopathy, lumbar region; M46.1 Sacroiliitis, not elsewhere classified; G89.4 Chronic pain syndrome | CPT/HCPCS: 99212 ==

== ENCOUNTER → 2021-12-11 15:22 | Outpatient (BNVA) | payer OTHER, SELFPAY | PROVIDERS: PCP Family Medicine; Visit Provider Nurse Practitioner Family | DX: Z51.81 Encounter for therapeutic drug level monitoring (principal); F11.20 Opioid dependence, uncomplicated; M47.816 Spondylosis without myelopathy or radiculopathy, lumbar region; M46.1 Sacroiliitis, not elsewhere classified; G89.4 Chronic pain syndrome | CPT/HCPCS: 99212 ==

== ENCOUNTER 2022-01-02 08:08 | Outpatient (REF) | payer OTHER, SELFPAY ==
--- NOTE | 2022-01-02 08:10 | EMG_ITS ---
Right median and ulnar motor and sensory studies were performed. Right radial sensory study was performed and paraspinal muscles were tested with a needle. IMPRESSION: No significant abnormality noted on this right upper extremity study. Left-sided study was not performed, because of the jewelry she was wearing. MD MIKEY Bello/LUCINA / [id number]
== END 2022-01-02 08:09 | disposition home or self-care (01) ==
LOC: HO.NEURO 08:08
PROVIDERS: PCP Family Medicine; Visit Provider Internal Medicine
DX: G56.03 Carpal tunnel syndrome, bilateral upper limbs (principal)
CPT/HCPCS: 95886; 95909

== ENCOUNTER → 2022-01-08 13:55 | Outpatient (BNVA) | payer OTHER, SELFPAY | PROVIDERS: PCP Family Medicine; Visit Provider Nurse Practitioner Family | DX: Z51.81 Encounter for therapeutic drug level monitoring (principal); F11.20 Opioid dependence, uncomplicated; M47.816 Spondylosis without myelopathy or radiculopathy, lumbar region; M46.1 Sacroiliitis, not elsewhere classified; G89.4 Chronic pain syndrome | CPT/HCPCS: 99212 ==

== ENCOUNTER → 2022-02-05 14:18 | Outpatient (BNVA) | payer OTHER, SELFPAY | PROVIDERS: PCP Family Medicine; Visit Provider Nurse Practitioner Family | DX: Z51.81 Encounter for therapeutic drug level monitoring (principal); F11.20 Opioid dependence, uncomplicated; M47.816 Spondylosis without myelopathy or radiculopathy, lumbar region; M46.1 Sacroiliitis, not elsewhere classified; G89.4 Chronic pain syndrome | CPT/HCPCS: 99212 ==

== ENCOUNTER → 2022-03-12 14:57 | Outpatient (BNVA) | payer OTHER, SELFPAY | PROVIDERS: PCP Family Medicine; Visit Provider Anesthesiology | DX: Z51.81 Encounter for therapeutic drug level monitoring (principal); F11.20 Opioid dependence, uncomplicated | CPT/HCPCS: 99211 ==

== ENCOUNTER 2022-04-02 18:23 | Emergency (ER) | payer OTHER, SELFPAY ==
--- NOTE | ~2022-04-02 | XR_ITS ---
Examination: XR knee LT 3V, XR shoulder LT min 2V, XR foot LT 2V, XR ankle LT 2V, XR clavicle LT Indication: fall, pain Comparison: No pertinent prior studies are currently available for comparison. Technique: 3 views of the left shoulder with 2 additional views the left clavicle, 4 views the left knee, 2 views of the left ankle, and 3 views of the left foot. Findings: Left shoulder and clavicle: Humeral head is well-seated in the glenoid fossa. Minimally displaced comminuted mid clavicular fracture is seen without significant angulation or distraction. No associated rib abnormality. Left knee: No significant knee joint effusion. Bones are normal anatomic alignment with no acute fracture or dislocation. Incidental well-corticated bipartite patella noted. Left ankle: No significant soft tissue swelling. Bones are normal anatomic alignment with no acute fracture or dislocation. Left foot: Bones are normal anatomic alignment with no acute fracture or dislocation. No bony degenerative or destructive lesions. XR/XR ankle LT 2V Impression: Mid left clavicular fracture.
--- NOTE | ~2022-04-02 | XR_ITS ---
EXAMINATION: PORTABLE CHEST 1 VIEW CLINICAL INFORMATION: left clavicular pain and swelling . COMPARISON: 04/12/2021. TECHNIQUE: Portable frontal view of the chest was obtained. FINDINGS: The lungs are well expanded. No focal infiltrate, effusion, edema, or pneumothorax. Cardiac and mediastinal silhouettes are within normal limits for technique. Slightly comminuted fractures of the mid left clavicle is seen without significant angulation. Acromioclavicular joint appears grossly intact.. XR/XR chest 1V IMPRESSION: Mid left clavicle fracture. No other acute bony abnormality.
--- NOTE | ~2022-04-02 | XR_ITS ---
Examination: XR knee LT 3V, XR shoulder LT min 2V, XR foot LT 2V, XR ankle LT 2V, XR clavicle LT Indication: fall, pain Comparison: No pertinent prior studies are currently available for comparison. Technique: 3 views of the left shoulder with 2 additional views the left clavicle, 4 views the left knee, 2 views of the left ankle, and 3 views of the left foot. Findings: Left shoulder and clavicle: Humeral head is well-seated in the glenoid fossa. Minimally displaced comminuted mid clavicular fracture is seen without significant angulation or distraction. No associated rib abnormality. Left knee: No significant knee joint effusion. Bones are normal anatomic alignment with no acute fracture or dislocation. Incidental well-corticated bipartite patella noted. Left ankle: No significant soft tissue swelling. Bones are normal anatomic alignment with no acute fracture or dislocation. Left foot: Bones are normal anatomic alignment with no acute fracture or dislocation. No bony degenerative or destructive lesions. XR/XR shoulder LT min 2V Impression: Mid left clavicular fracture.
--- NOTE | ~2022-04-02 | XR_ITS ---
Examination: XR knee LT 3V, XR shoulder LT min 2V, XR foot LT 2V, XR ankle LT 2V, XR clavicle LT Indication: fall, pain Comparison: No pertinent prior studies are currently available for comparison. Technique: 3 views of the left shoulder with 2 additional views the left clavicle, 4 views the left knee, 2 views of the left ankle, and 3 views of the left foot. Findings: Left shoulder and clavicle: Humeral head is well-seated in the glenoid fossa. Minimally displaced comminuted mid clavicular fracture is seen without significant angulation or distraction. No associated rib abnormality. Left knee: No significant knee joint effusion. Bones are normal anatomic alignment with no acute fracture or dislocation. Incidental well-corticated bipartite patella noted. Left ankle: No significant soft tissue swelling. Bones are normal anatomic alignment with no acute fracture or dislocation. Left foot: Bones are normal anatomic alignment with no acute fracture or dislocation. No bony degenerative or destructive lesions. XR/XR clavicle LT Impression: Mid left clavicular fracture.
--- NOTE | ~2022-04-02 | XR_ITS ---
Examination: XR knee LT 3V, XR shoulder LT min 2V, XR foot LT 2V, XR ankle LT 2V, XR clavicle LT Indication: fall, pain Comparison: No pertinent prior studies are currently available for comparison. Technique: 3 views of the left shoulder with 2 additional views the left clavicle, 4 views the left knee, 2 views of the left ankle, and 3 views of the left foot. Findings: Left shoulder and clavicle: Humeral head is well-seated in the glenoid fossa. Minimally displaced comminuted mid clavicular fracture is seen without significant angulation or distraction. No associated rib abnormality. Left knee: No significant knee joint effusion. Bones are normal anatomic alignment with no acute fracture or dislocation. Incidental well-corticated bipartite patella noted. Left ankle: No significant soft tissue swelling. Bones are normal anatomic alignment with no acute fracture or dislocation. Left foot: Bones are normal anatomic alignment with no acute fracture or dislocation. No bony degenerative or destructive lesions. XR/XR foot LT 2V Impression: Mid left clavicular fracture.
--- NOTE | ~2022-04-02 | CT_ITS ---
EXAMINATION: NONCONTRAST HEAD CT NONCONTRAST CERVICAL SPINE CT INDICATION INFORMATION: Fall with head with neck pain COMPARISON: Head and C-spine CT 08/25/2017 TECHNIQUE: Separate noncontrast CT examinations of the head and cervical spine were performed. Coronal and sagittal images were created for each examination at the technologist workstation. This CT examination was performed using dose optimization techniques as appropriate, variously including the following: *Automated exposure control *Adjustment of mA and/or kV according to patient size (this includes techniques or standardized protocols for targeted exams where dose is matched to indication/reason for exam; i.e. extremities or head) *Use of iterative reconstruction technique DLP: 1412 mGy-cm FINDINGS: HEAD: Variant dafne cisterna magna noted. No intra or extra-axial fluid collection, hemorrhage, or mass. No ventriculomegaly. No midline shift or herniation. Basal cisterns are patent. Portillo-white matter differentiation is maintained. No territorial encephalomalacia. No significant volume loss. There is no abnormal attenuation within the brain parenchyma. No calvarial fracture or soft tissue abnormality. The mastoid air cells and visualized portions of the paranasal sinuses are well aerated. CERVICAL SPINE: Alignment: Straightening of the normal cervical lordosis. No subluxation. Vertebra: No acute fracture. No prevertebral soft tissue swelling. Degenerative disc disease: Moderate to severe disc height loss at C5-C6 with endplate sclerosis, mild endplate cystic and proliferative change. Mild disc height loss at C6-C7 and C7-T1. Other findings: No cervical lymphadenopathy. Visualized major salivary glands and thyroid gland are unremarkable. Visualized lung apices are clear. Comminuted displaced left clavicular fracture with adjacent soft tissue edema/hemorrhage noted at the margin of the [id number]. CT/CT cervical spine wo con IMPRESSION: 1. No intracranial hemorrhage or calvarial fracture. 2. No traumatic subluxation or acute cervical spine fracture. 3. Comminuted displaced left clavicle fracture.
--- NOTE | ~2022-04-02 | XR_ITS ---
Examination: XR knee LT 3V, XR shoulder LT min 2V, XR foot LT 2V, XR ankle LT 2V, XR clavicle LT Indication: fall, pain Comparison: No pertinent prior studies are currently available for comparison. Technique: 3 views of the left shoulder with 2 additional views the left clavicle, 4 views the left knee, 2 views of the left ankle, and 3 views of the left foot. Findings: Left shoulder and clavicle: Humeral head is well-seated in the glenoid fossa. Minimally displaced comminuted mid clavicular fracture is seen without significant angulation or distraction. No associated rib abnormality. Left knee: No significant knee joint effusion. Bones are normal anatomic alignment with no acute fracture or dislocation. Incidental well-corticated bipartite patella noted. Left ankle: No significant soft tissue swelling. Bones are normal anatomic alignment with no acute fracture or dislocation. Left foot: Bones are normal anatomic alignment with no acute fracture or dislocation. No bony degenerative or destructive lesions. XR/XR knee LT 3V Impression: Mid left clavicular fracture.
--- NOTE | ~2022-04-02 | CT_ITS ---
EXAMINATION: NONCONTRAST HEAD CT NONCONTRAST CERVICAL SPINE CT INDICATION INFORMATION: Fall with head with neck pain COMPARISON: Head and C-spine CT 08/25/2017 TECHNIQUE: Separate noncontrast CT examinations of the head and cervical spine were performed. Coronal and sagittal images were created for each examination at the technologist workstation. This CT examination was performed using dose optimization techniques as appropriate, variously including the following: *Automated exposure control *Adjustment of mA and/or kV according to patient size (this includes techniques or standardized protocols for targeted exams where dose is matched to indication/reason for exam; i.e. extremities or head) *Use of iterative reconstruction technique DLP: 1412 mGy-cm FINDINGS: HEAD: Variant dafne cisterna magna noted. No intra or extra-axial fluid collection, hemorrhage, or mass. No ventriculomegaly. No midline shift or herniation. Basal cisterns are patent. Portillo-white matter differentiation is maintained. No territorial encephalomalacia. No significant volume loss. There is no abnormal attenuation within the brain parenchyma. No calvarial fracture or soft tissue abnormality. The mastoid air cells and visualized portions of the paranasal sinuses are well aerated. CERVICAL SPINE: Alignment: Straightening of the normal cervical lordosis. No subluxation. Vertebra: No acute fracture. No prevertebral soft tissue swelling. Degenerative disc disease: Moderate to severe disc height loss at C5-C6 with endplate sclerosis, mild endplate cystic and proliferative change. Mild disc height loss at C6-C7 and C7-T1. Other findings: No cervical lymphadenopathy. Visualized major salivary glands and thyroid gland are unremarkable. Visualized lung apices are clear. Comminuted displaced left clavicular fracture with adjacent soft tissue edema/hemorrhage noted at the margin of the [id number]. CT/CT head/brain wo con IMPRESSION: 1. No intracranial hemorrhage or calvarial fracture. 2. No traumatic subluxation or acute cervical spine fracture. 3. Comminuted displaced left clavicle fracture.
[2022-04-02 18:28] VITALS: BP 128/86; PULSE 86; O2SAT 96
[2022-04-02 18:40] VITALS: BP 132/79; PULSE 70; RESP 18; TEMP 37.2; O2SAT 100; BMI 30.7
--- NOTE | 2022-04-02 18:52 | PC.NURSE ---
fire official notified about pt's reports conflicting with ALS assessment. Spine cleared by ALS provider prior to transport to [facility] [place].
--- NOTE | 2022-04-02 20:30 | PC.NURSE ---
patient report she took 2 percocets at 1999 while in the waiting room, patient made aware to not take anymore of her own meds- provider aware
--- NOTE | 2022-04-02 20:49 | ED_ITS ---
HPI - Fall General Chief Complaint: Fall Stated Complaint: fall (Left sided pain) Time Seen by Provider: 04/02/22 20:29 Source: patient and EMS Mode of arrival: wheelchair Limitations: no limitations History of Present Illness HPI Narrative: 37-year-old patient with a history of chronic pain syndrome, spondylosis the lumbar spine here after fall. Patient tells me that she has times in which her legs give out on her. This is not a new thing. She was going down the stairs when her legs gave out and she fell forward. Patient tells me that she twisted her upper body to the left falling landing directly on the left shoulder. There was a head strike. She denies any loss of consciousness. She is here with reports of head strike, neck pain, left shoulder pain, left knee pain, left ankle pain and left foot pain. She denies any vomiting, vision changes, dizziness, chest pain or abdominal pain. Patient took 2 of her oxycodone and 20:00 Related Data Home Medications Medication Instructions Recorded Confirmed methylphenidate HCl 36 mg 36 mg PO QAM 10/03/20 02/05/22 tablet,extended release 24 hr melatonin 5 mg capsule 5 mg PO .hs 02/13/21 02/05/22 oxybutynin chloride 10 mg 10 mg PO DAILY 03/13/21 02/05/22 tablet,extended release 24 hr duloxetine 30 mg capsule,delayed 30 mg PO DAILY 12/11/21 02/05/22 release Previous Rx's Medication Instructions Recorded naloxone 4 mg/actuation nasal 4 mg intranasal Q2M PRN opioid 11/21/20 spray (Narcan) overdose #2 ea ibuprofen 600 mg tablet 600 mg PO Q6H PRN pain #20 tabs 04/17/21 diclofenac sodium 1 % topical gel 2 g topical TID PRN Pain, Moderate 10/18/21 (Voltaren Arthritis Pain) #100 grams oxycodone-acetaminophen 5 mg-325 1 tab PO TID PRN severe pain 03/12/22 mg tablet (Percocet) (scale score 7-10) 30 days #90 tabs Allergies Allergy/AdvReac Type Severity Reaction Status Date / Time No Known Allergies Allergy Verified 02/05/22 14:28 Review of Systems Review of Systems: Yes all other systems are reviewed and are negative Constitutional: Constitutional: Reports no additional constitutional complaints, Denies body ache(s), Denies chills, Denies fever(s), Reports headache(s) and Denies weakness Eyes: Eyes: Reports no additional eye complaints and Denies change in vision ENT: Reports system reviewed and no additional complaints, except as documented, Denies dizziness, Reports headache(s), Denies nasal congestion, Denies nasal discharge and Reports neck pain Cardiovascular: Cardiovascular: Reports no additional cardiovascular complaints, Denies chest pain, Denies leg edema and Denies dyspnea Respiratory: Respiratory: Reports no additional respiratory complaints, Denies cough and Denies dyspnea Gastrointestinal: Gastrointestinal: Reports no additional gastrointestinal complaints, Denies abdominal pain, Denies diarrhea, Denies nausea and Denies vomiting Genitourinary: Genitourinary: Reports no additional female genitourinary complaints and Denies urinary incontinence Musculoskeletal: Musculoskeletal: Reports no additional musculoskeletal complaints, Denies back pain, Reports arthralgias, Reports joint swelling, Reports limited range of motion, Reports neck pain, Denies numbness and Denies tingling Integumentary/Breasts: Skin/Breast: Reports system reviewed and no additional complaints, except as docu and Denies rash Neurologic: Reports system reviewed and no additional complaints, except as documented, Denies Abnormal speech present, Denies dizziness, Reports headache(s), Denies numbness, Denies tingling and Denies weakness PMFSH Past Medical History Attestation statement: The following information was validated with the patient. Source: old records reviewed and nursing notes reviewed Medical History Arthritis Breast implant in situ Status post gender reassignment surgery Social History Social History Alcohol intake: current Alcohol intake frequency: holidays/special occasions only Alcohol type: wine Patient Tobacco Use Status: Former Tobacco user Advance Directives: No Advance Directives Information Provided: No Physical Exam Vital Signs: Vital Signs: Last Vital Signs Temp 98.9 F 04/02/22 18:40 Pulse 77 04/02/22 22:52 Resp 18 04/02/22 22:52 BP 125/89 04/02/22 22:52 Pulse Ox 98 04/02/22 22:52 O2 Del Method 04/02/22 22:52 BMI result Body Mass Index 30.7 Const: General: cooperative, healthy appearing, comfortable and no acute distress Orientation/consciousness: patient oriented x3 Limitations: no limitations HEENT: Head: Yes normal to inspection, No Torres's sign and No raccoon eyes Ears: hearing grossly normal bilaterally and TM's normal bilaterally General nose exam: Normal external nose present Face and sinus: Yes normal facial exam Mouth: Normal oral and palatal mucosa present Throat: Yes posterior oropharynx normal Eyes: General: appearance normal, both eyes and all related structures Pupils: Equal, round and reactive pupils present Neck: Other: there is tenderness the cervical mid spine with no step-offs deformities Neck: Yes normal visual inspection and Yes full ROM Chest: Chest palpation & inspection: normal inspection of the chest Resp: Effort & Inspection: normal respiratory effort Auscultation: clear to auscultation bilaterally Cardio: Rate: regular rate Rhythm: regular rhythm Peripheral pulses: Peripheral pulses 2+ throughout GI: Inspection: Yes normal to inspection Palpation (GI): Soft to palpation and nontender Auscultation: normal bowel sounds Back/Spine/Pelvis: Thoracic/Lumbar Spine: thoracic and lumbar spine normal to inspection Skin: General skin exam: no rashes or lesions noted Neuro: General: patient oriented x3, no focal motor deficits, normal sensation to monofilament and Unable to assess gait Cranial nerves: Yes CN's II-XII intact bilaterally, Yes Equal, round and reactive pupils present, Yes Bilaterally intact EOM present, Yes Nystagmus not present, Yes Normal facial strength present and Yes Midline tongue present Cognition (Neuro): normal cognition Speech: No Abnormal speech present Gait exam (Neuro): Unable to assess gait Motor exam (neuro): 5/5 motor strength present throughout Sensory Exam: Normal double simultaneous stimulation for sensation Extrem: Other: tenderness the left lateral ankle with mild swelling. There is full range of motion. Tenderness the left 5th MTP with mild swelling but full range of motion. Tenderness to the anterior left knee with full range of motion and no swelling or deformity. General: Yes normal to inspection Shoulder/upper arm images: 1. Swelling, ecchymosis, tenderness. no tenting or crepitus in the skin. pain over the anterior left shoulder and proximal humerus that is worsened with abduction. Palpable radial and ulnar pulses Course Course Course Narrative: 37-year-old female here after a fall down the stairs with reports of head strike, neck pain, left shoulder pain, left knee pain, left ankle pain, left foot pain. Normal neuro exam vital stable. will check CT head, CT neck. will obtain x-rays of chest, shoulder, knee, foot, ankle Reevaluation(s) Reevaluation #1: the patient has the mid left clavicular fracture with no significant displac ement or angulation. Her additional x-ray show no acute finding. Her CT head and neck show no acute bony abnormality or intracranial hemorrhage. Patient was placed in a sling. She was given oxycodone with relief of pain. She has oxycodone at home that she takes for chronic pain. Recommended ice, sling for comfort and follow-up with Orthopedics. Reviewed worrisome signs and symptoms of when to return to the emergency department. Comfortable discharge home. Time: 22:45 Procedures Procedure Narrative Procedure Narrative: sling MDM - Fall MDM Narrative Medical decision making narrative: fracture, contusion , strain Medical Records Attestation: I reviewed the patient's medical records. Lab Data Attestation: I reviewed the patient's lab results. Imaging Data Chest x-ray: Attestation: I personally reviewed and interpreted this imaging study as follows: Radiologist's impression: Launch?Image [place] [address] XRay Report Signed Patient: Cherri Booth MR#: [id number] : 1985 Acct:[id number] Age/Sex: 37 / F ADM Date: 04/02/22 Loc: HO.ED Attending Dr: Ordering Physician: Mirna Joshi NP Date of Service: 04/02/22 Procedure(s): XR chest 1V Accession Number(s): [id number] cc: Mirna Joshi NP~ EXAMINATION: PORTABLE CHEST 1 VIEW CLINICAL INFORMATION: left clavicular pain and swelling . COMPARISON: 04/12/2021. TECHNIQUE: Portable frontal view of the chest was obtained. FINDINGS: The lungs are well expanded. No focal infiltrate, effusion, edema, or pneumothorax. Cardiac and mediastinal silhouettes are within normal limits for technique. Slightly comminuted fractures of the mid left clavicle is seen without significant angulation. Acromioclavicular joint appears grossly intact.. XR/XR chest 1V IMPRESSION: Mid left clavicle fracture. No other acute bony abnormality. ? left knee/ankle/foot: Attestation: I personally reviewed and interpreted this imaging study as follows: Radiologist's impression: Left knee: No significant knee joint effusion. Bones are normal anatomic alignment with no acute fracture or dislocation. Incidental well-corticated bipartite patella noted. Left ankle: No significant soft tissue swelling. Bones are normal anatomic alignment with no acute fracture or dislocation. Left foot: Bones are normal anatomic alignment with no acute fracture or dislocation. No bony degenerative or destructive lesions. ct head/cervical spine: Attestation: I personally reviewed and interpreted this imaging study as follows: Radiologist's impression: FINDINGS: HEAD: Variant dafne cisterna magna noted. No intra or extra-axial fluid collection, hemorrhage, or mass. No ventriculomegaly. No midline shift or herniation. Basal cisterns are patent. Portillo-white matter differentiation is maintained. No territorial encephalomalacia. No significant volume loss. There is no abnormal attenuation within the brain parenchyma. No calvarial fracture or soft tissue abnormality. The mastoid air cells and visualized portions of the paranasal sinuses are well aerated. CERVICAL SPINE: Alignment: Straightening of the normal cervical lordosis. No subluxation. Vertebra: No acute fracture. No prevertebral soft tissue swelling. Degenerative disc disease: Moderate to severe disc height loss at C5-C6 with endplate sclerosis, mild endplate cystic and proliferative change. Mild disc height loss at C6-C7 and C7-T1. Other findings: No cervical lymphadenopathy. Visualized major salivary glands and thyroid gland are unremarkable. Visualized lung apices are clear. Comminuted displaced left clavicular fracture with adjacent soft tissue edema/hemorrhage noted at the margin of the [id number]. CT/CT cervical spine wo con IMPRESSION: ? 1. No intracranial hemorrhage or calvarial fracture. 2. No traumatic subluxation or acute cervical spine fracture. 3. Comminuted displaced left clavicle fracture. Ct head/cervical spine: Attestation: I personally reviewed and interpreted this imaging study as follows: Radiologist's impression: FINDINGS: HEAD: Variant dafne cisterna magna noted. No intra or extra-axial fluid collection, hemorrhage, or mass. No ventriculomegaly. No midline shift or herniation. Basal cisterns are patent. Portillo-white matter differentiation is maintained. No territorial encephalomalacia. No significant volume loss. There is no abnormal attenuation within the brain parenchyma. No calvarial fracture or soft tissue abnormality. The mastoid air cells and visualized portions of the paranasal sinuses are well aerated. CERVICAL SPINE: Alignment: Straightening of the normal cervical lordosis. No subluxation. Vertebra: No acute fracture. No prevertebral soft tissue swelling. Degenerative disc disease: Moderate to severe disc height loss at C5-C6 with endplate sclerosis, mild endplate cystic and proliferative change. Mild disc height loss at C6-C7 and C7-T1. Other findings: No cervical lymphadenopathy. Visualized major salivary glands and thyroid gland are unremarkable. Visualized lung apices are clear. Comminuted displaced left clavicular fracture with adjacent soft tissue edema/hemorrhage noted at the margin of the [id number]. CT/CT cervical spine wo con IMPRESSION: ? 1. No intracranial hemorrhage or calvarial fracture. 2. No traumatic subluxation or acute cervical spine fracture. 3. Comminuted displaced left clavicle fracture. Discharge Plan Discharge Clinical Impression: Fracture of left clavicle Patient Disposition: Home, Self-Care Instructions: Clavicle Fracture (ED) Additional Instructions: sling is for comfort only ice to the area limit use of the left arm if able follow-up with orthopedic Prescriptions: No Action oxycodone-acetaminophen [Percocet] 5-325 mg tablet 1 tab PO TID PRN (Reason: severe pain (scale score 7-10)) 30 Days Qty: 90 0RF ibuprofen 600 mg tablet 600 mg PO Q6H PRN (Reason: pain) Qty: 20 0RF diclofenac sodium [Voltaren Arthritis Pain] 1 % gel 2 g topical TID PRN (Reason: Pain, Moderate) Qty: 100 0RF Rx Instructions: apply to single elbow, wrist or hand; for hand includes palm/fingers/back of hand Narcan 4 mg/actuation spray,non-aerosol 4 mg intranasal Q2M PRN (Reason: opioid overdose) Qty: 2 0RF Rx Instructions: spray 1 dose into ONE nostril; alternate nostrils w each dose until help arrives melatonin 5 mg capsule 5 mg PO .hs oxybutynin chloride 10 mg tablet extended release 24hr 10 mg PO DAILY methylphenidate HCl 36 mg tablet extended release 24hr 36 mg PO QAM duloxetine 30 mg capsule,delayed release(DR/EC) 30 mg PO DAILY Referrals: [facility] [Provider Group] Interventions: ED Discharge Assessment Last Done: 04/02/22 23:23 Discharge Date/Time: 04/02/22 23:24
[2022-04-02 22:52] VITALS: BP 125/89; PULSE 77; RESP 18; O2SAT 98
[2022-04-02] MEDS: oxyCODONE HCl Immed Release 5 MG TABLET 10 MG PO (22:54)
== END 2022-04-02 23:24 | disposition home or self-care (01) ==
PROVIDERS: Emergency Provider Internal Medicine; PCP Family Medicine
DX: S42.002A Fracture of unspecified part of left clavicle, initial encounter for closed fracture (principal); S09.90XA Unspecified injury of head, initial encounter; M54.2 Cervicalgia; M25.562 Pain in left knee; M25.572 Pain in left ankle and joints of left foot; M79.672 Pain in left foot; G89.4 Chronic pain syndrome; Z79.891 Long term (current) use of opiate analgesic; W10.9XXA Fall (on) (from) unspecified stairs and steps, initial encounter; Y93.9 Activity, unspecified; Y92.9 Unspecified place or not applicable; Y99.9 Unspecified external cause status
CPT/HCPCS: 70450; 71045; 72125; 73000; 73030; 73562; 73600; 73620; 99284

== ENCOUNTER 2022-04-05 15:03 | Emergency (ER) | payer OTHER, SELFPAY ==
[2022-04-05 15:34] VITALS: BP 148/104; PULSE 93; RESP 16; TEMP 37.1; O2SAT 98; BMI 30.7
[2022-04-05 16:06] LABS: Influenza A Negative (Negative); Influenza B2 Negative (Negative)
[2022-04-05 16:08] LABS: COVID-19 Test Negative (Negative); IDNOW Serial# 55D5AD1C
--- NOTE | 2022-04-05 17:31 | ED.GENADULT ---
HPI - General Adult General Chief complaint: Upper Respiratory Symptoms Stated complaint: headaches/back pain/abd pain Time Seen by Provider: 04/05/22 17:30 Source: patient Mode of arrival: ambulatory Limitations: no limitations History of Present Illness HPI narrative: Patient is a 37 year old female presenting to the emergency department today with body aches. Patient states that for the last couple of days she has had body aches and felt generally unwell. Patient denies any dizziness, lightheadedness, abdominal pain, nausea, vomiting, fever, chills, blurry vision, double vision, loss of vision, chest pain, difficulty breathing, shortness of breath, back pain, night sweats, pain with urination, increased urinary frequency, increased urinary urgency, blood in her urine or stool, syncope or a near syncopal episode, bowel incontinence, bladder incontinence, bowel retention, bladder retention, or any other complaints at this time. Onset (ago): day(s) Severity: mild Severity scale (1-10): 2 Quality: dull Pain Consistency: constant Relieving factors: none Exacerbating factors: none Associated symptoms: denies other symptoms Treatments prior to arrival: none Related Data Home Medications Medication Instructions Recorded Confirmed methylphenidate HCl 36 mg 36 mg PO QAM 10/03/20 02/05/22 tablet,extended release 24 hr melatonin 5 mg capsule 5 mg PO .hs 02/13/21 02/05/22 oxybutynin chloride 10 mg 10 mg PO DAILY 03/13/21 02/05/22 tablet,extended release 24 hr duloxetine 30 mg capsule,delayed 30 mg PO DAILY 12/11/21 02/05/22 release Previous Rx's Medication Instructions Recorded naloxone 4 mg/actuation nasal 4 mg intranasal Q2M PRN opioid 11/21/20 spray (Narcan) overdose #2 ea ibuprofen 600 mg tablet 600 mg PO Q6H PRN pain #20 tabs 04/17/21 diclofenac sodium 1 % topical gel 2 g topical TID PRN Pain, Moderate 10/18/21 (Voltaren Arthritis Pain) #100 grams oxycodone-acetaminophen 5 mg-325 1 tab PO TID PRN severe pain 03/12/22 mg tablet (Percocet) (scale score 7-10) 30 days #90 tabs Allergies Allergy/AdvReac Type Severity Reaction Status Date / Time No Known Allergies Allergy Verified 02/05/22 14:28 Review of Systems Constitutional: Constitutional: Reports no additional constitutional complaints, Reports body ache(s), Denies chills, Denies fever(s) and Denies night sweats Eyes: Eyes: Reports no additional eye complaints, Denies blurry vision, Denies change in vision, Denies diplopia, Denies eye discharge, Denies loss of vision and Denies eye pain ENT: Denies dizziness Cardiovascular: Cardiovascular: Reports no additional cardiovascular complaints, Denies chest pain, Denies lightheadedness, Denies Loss of Consciousness and Denies dyspnea Respiratory: Respiratory: Reports no additional respiratory complaints and Denies dyspnea Gastrointestinal: Gastrointestinal: Reports no additional gastrointestinal complaints, Denies abdominal pain, Denies melena, Denies hematochezia, Denies change in bowel habits and Denies change in stool character Genitourinary: Genitourinary: Denies hematuria, Denies urinary frequency, Denies dysuria, Denies urinary incontinence, Denies urinary hesitancy and Denies urinary urgency Musculoskeletal: Musculoskeletal: Reports no additional musculoskeletal complaints, Denies numbness and Denies tingling Neurologic: Denies dizziness, Denies loss of vision, Denies numbness and Denies tingling Psychiatric: Psychiatric: Reports no additional psychiatric complaints Endocrine: Endocrine: Reports no additional endocrine complaints Hematologic/Lymphatic: Hematologic/Lymphatic: Reports no additional hematologic/lymphatic complaints Allergic/Immunologic: Allergic/Immunologic: Reports no additional allergic/immunologic complaints PMFSH Past Medical History Attestation statement: The following information was validated with the patient. Source: old records reviewed Medical History Arthritis Breast implant in situ Status post gender reassignment surgery Social History Social History Alcohol intake: current Alcohol intake frequency: holidays/special occasions only Alcohol type: wine Patient Tobacco Use Status: Former Tobacco user Advance Directives: No Advance Directives Information Provided: No Physical Exam ED Vital Signs: Vital Signs - 24 hr 04/05/22 15:34 Temperature 98.8 F Pulse Rate 93 Respiratory Rate 16 Blood Pressure 148/104 H Pulse Oximetry 98 Oxygen Delivery Method Room Air BMI result Body Mass Index 30.7 Const General: cooperative, no acute distress, alert and awake Nutritional Appearance: well nourished Orientation/consciousness: patient oriented x3 Limitations: no limitations HENMT Head: Yes normal to inspection and Yes atraumatic Ears: hearing grossly normal bilaterally and external ears normal General nose exam: Normal external nose present, no nasal discharge noted and no epistaxis Face and sinus: Yes normal facial exam, No abrasion and No laceration Mouth: Normal oral and palatal mucosa present, no drooling and no muffled voice Eyes General: appearance normal, both eyes and all related structures Periorbital: periorbital findings normal Eyelids: Yes eyelids normal Conjunctivae: conjunctivae normal Pupils: Equal, round and reactive pupils present EOM: EOMs intact bilaterally Neck Neck: Yes normal visual inspection, Yes full ROM and Yes no lymphadenopathy Chest Chest palpation & inspection: normal inspection of the chest Resp Effort & Inspection: normal respiratory effort and able to speak in complete sentences Auscultation: clear to auscultation bilaterally Cardio Rate: regular rate Rhythm: regular rhythm GI Inspection: Yes normal to inspection Neuro General: patient oriented x3 and moves all extremities Cranial nerves: Yes Equal, round and reactive pupils present Cognition (Neuro): normal cognition Motor exam (neuro): 5/5 motor strength present throughout Sensory Exam: Normal double simultaneous stimulation for sensation Coordination: [id number] test normal Extrem General: Yes normal to inspection, Yes full ROM and Yes capillary refill normal Psych Appearance: grossly normal Mental Status: mental status grossly normal Affect: normal affect Attitude: cooperative Thought process: Normal thought process present Thought content: Normal thought content present Insight: Good insight present (Psych) Medical Decision Making MDM Narrative Medical decision making narrative: Patient is a 37 year old female presenting to the emergency department today with body aches. Patient's physical exam was unremarkable. Patient's rapid COVID-19 and influenza tests were negative. I explained my physical exam findings as well as all test results to the patient. I answered all questions asked by the patient. I stressed the importance of the patient taking her medication as prescribed. I stressed the importance of the patient following up with her primary care provider and orthopedic provider for her previous left clavicle fracture. I stressed the importance of the patient returning to the emergency department immediately if her symptoms were to worsen or if she were to develop any dizziness, shortness of breath, difficulty breathing, chest pain, blurry vision, loss of vision, nausea, vomiting, abdominal pain, fever, chills, back pain, or any other complaints. Patient verbalized agreement and understanding with this treatment plan and discharge. Differential Diagnosis Differential Diagnosis: Body aches, body pain Medical Records Medical records reviewed: Yes I reviewed the patient's medical records. Lab Data Lab results reviewed: Yes I reviewed the patient's lab results. Labs: Lab Results 04/05/22 04/05/22 Range/Units 15:40 15:40 COVID-19 ([facility]) Negative (Negative) COVID-19 Clin Com See Note Influenza Type A ([facility]) Negative (Negative) Influenza Type B ([facility]) Negative (Negative) Influenza A & B Note See Note Discharge Plan Discharge Clinical Impression: Body aches Patient Disposition: Home, Self-Care Instructions: Clavicle Fracture (ED) Additional Instructions: Follow up with your primary care provider and an orthopedic provider. Return to the emergency department immediately if your symptoms worsen or if you develop any dizziness, shortness of breath, difficulty breathing, chest pain, blurry vision, loss of vision, nausea, vomiting, abdominal pain, fever, chills, back pain, or any other complaints. Prescriptions: No Action oxycodone-acetaminophen [Percocet] 5-325 mg tablet 1 tab PO TID PRN (Reason: severe pain (scale score 7-10)) 30 Days Qty: 90 0RF ibuprofen 600 mg tablet 600 mg PO Q6H PRN (Reason: pain) Qty: 20 0RF diclofenac sodium [Voltaren Arthritis Pain] 1 % gel 2 g topical TID PRN (Reason: Pain, Moderate) Qty: 100 0RF Rx Instructions: apply to single elbow, wrist or hand; for hand includes palm/fingers/back of hand Narcan 4 mg/actuation spray,non-aerosol 4 mg intranasal Q2M PRN (Reason: opioid overdose) Qty: 2 0RF Rx Instructions: spray 1 dose into ONE nostril; alternate nostrils w each dose until help arrives melatonin 5 mg capsule 5 mg PO .hs oxybutynin chloride 10 mg tablet extended release 24hr 10 mg PO DAILY methylphenidate HCl 36 mg tablet extended release 24hr 36 mg PO QAM duloxetine 30 mg capsule,delayed release(DR/EC) 30 mg PO DAILY Referrals: [facility] [Provider Group] Sudha Richardson MD [Primary Care Provider] - Print Language: Irish
== END 2022-04-05 18:19 | disposition home or self-care (01) ==
PROVIDERS: Emergency Provider Student in an Organized Health Care Education/Training Program; PCP Family Medicine
DX: R51.9 Headache, unspecified (principal); M54.50 Low back pain, unspecified; R10.9 Unspecified abdominal pain; M79.10 Myalgia, unspecified site; Z20.822 Contact with and (suspected) exposure to COVID-19; Z79.899 Other long term (current) drug therapy; Z87.891 Personal history of nicotine dependence
CPT/HCPCS: 87502; 87635; 99282; 99283

== ENCOUNTER → 2022-04-09 14:35 | Outpatient (BNVA) | payer OTHER, SELFPAY | PROVIDERS: PCP Family Medicine; Visit Provider Nurse Practitioner Family | DX: Z51.81 Encounter for therapeutic drug level monitoring (principal); F11.20 Opioid dependence, uncomplicated; M47.816 Spondylosis without myelopathy or radiculopathy, lumbar region; M46.1 Sacroiliitis, not elsewhere classified; G89.4 Chronic pain syndrome | CPT/HCPCS: 99212 ==

== ENCOUNTER 2022-04-11 16:32 | Outpatient (REF) | payer OTHER, SELFPAY ==
[2022-04-11 17:02] LABS: MANUAL DIFF FLAG NO
[2022-04-11 17:30] LABS: Basophils Percent Auto 0.1 % (0-2); Eosinophils Absolute Auto 0.1 X10*3/uL (0.0-0.4); Eosinophils Percent Auto 0.8 % (0-4); Hematocrit 40.8 % (37.0-47.0); Imm Gran Abs Auto 0.03 X10*3/uL (0.00-0.03); Imm Gran Pct Auto 0.4 % (0.0-0.4); Lymphocytes Absolute Auto 2.2 X10*3/uL (1.2-4.9); Lymphocytes Percent Auto 31.4 % (20-40); Mean Corpuscular HGB Conc 34.3 g/dl (31.0-35.0); Mean Corpuscular Hemoglobin 30.6 pg (27.0-33.0); Mean Corpuscular Volume 89.3 fL (80.0-98.0); Mean Platelet Volume 8.8 fL (9.4-12.3); Monocytes Absolute Auto 0.6 X10*3/uL (0.1-1.2); Monocytes Percent Auto 8.1 % (2-11); Neutrophils Absolute Auto 4.2 x10*3/uL (2.0-8.3); Neutrophils Percent Auto 59.2 % (45-73); Platelet Count 353 X10*3/uL (160-400); Red Blood Count 4.57 X10*6/uL (4.20-5.50); Red Cell Distribution Width 11.7 % (11.0-16.0); White Blood Count 7.1 X10*3/uL (4.8-10.8)
[2022-04-11 17:56] LABS: Alanine Aminotransferase 27 U/L (0-31); Aspartate Amino Transferase 22 U/L (5-31); Estimated Glomerular Filt Rate > 60
[2022-04-11 18:15] LABS: Syphilis Screen Nonreactive (Nonreactive)
[2022-04-11 18:19] LABS: TSH reflex Free T4 0.61 uIU/mL (0.32-4.0)
[2022-04-11 18:21] LABS: Vitamin B12 235 pg/mL (200-900)
[2022-04-12 05:21] LABS: CT PCR NOT DETECTED (Not Detect.); NG PCR NOT DETECTED (Not Detect.)
[2022-04-14 08:17] LABS: HBS Num1 > 1000.00 mIU/mL (0-7.99); HIV AB/AG Nonreactive (Nonreactive); HIV Num 1 0.12 S/CO (0.00-0.99); ~Hepatitis B Surface Antibody REACTIVE (Nonreactive)
[2022-04-14 21:56] LABS: Lyme Abs Screen <0.90 index
[2022-04-17 12:42] LABS: A. Phagocytophilum Ab IgG <1:64 (<1:64); A. Phagocytophilum Ab IgM <1:20 (<1:20); E. Chaffeensis Ab IgG <1:64 (<1:64); E. Chaffeensis Ab IgM <1:20 (<1:20)
[2022-04-21 08:35] LABS: HSV 1 IgM IFA Negative (Negative); HSV 2 IgM IFA Negative (Negative)
== END 2022-04-11 16:33 | disposition home or self-care (01) ==
LOC: HO.LAB 16:32
PROVIDERS: PCP Family Medicine; Visit Provider Internal Medicine Infectious Disease
DX: R53.83 Other fatigue (principal); T14.8XXA Other injury of unspecified body region, initial encounter; W57.XXXA Bitten or stung by nonvenomous insect and other nonvenomous arthropods, initial encounter; G62.9 Polyneuropathy, unspecified
CPT/HCPCS: 82565; 82607; 84443; 84450; 84460; 85025; 86617; 86618; 86666; 86695; 86696; 86706; 86780; 87389; 87491; 87591

== ENCOUNTER → 2022-04-17 11:03 | Outpatient (BNVA) | payer OTHER, SELFPAY | PROVIDERS: PCP Family Medicine; Visit Provider Physician Assistant | DX: S42.002A Fracture of unspecified part of left clavicle, initial encounter for closed fracture (principal); S93.402A Sprain of unspecified ligament of left ankle, initial encounter; F11.90 Opioid use, unspecified, uncomplicated; G89.4 Chronic pain syndrome | CPT/HCPCS: 99202 ==

== ENCOUNTER → 2022-05-07 14:01 | Outpatient (BNVA) | payer OTHER, SELFPAY | PROVIDERS: PCP Family Medicine; Visit Provider Nurse Practitioner Family | DX: G89.4 Chronic pain syndrome (principal); M47.816 Spondylosis without myelopathy or radiculopathy, lumbar region; M46.1 Sacroiliitis, not elsewhere classified; Z79.891 Long term (current) use of opiate analgesic | CPT/HCPCS: 99212 ==

== ENCOUNTER 2022-05-16 08:12 | Outpatient (REF) | payer OTHER, SELFPAY ==
--- NOTE | ~2022-05-16 | XR_ITS ---
EXAMINATION: XR CLAVICLE, LEFT CLINICAL INFORMATION: Left clavicular fracture follow-up. COMPARISON: None TECHNIQUE: Two views of the left clavicle. FINDINGS: Redemonstration of a comminuted left midclavicular fracture, not significantly changed in appearance nor malalignment when compared to 04/02/2022. No interval injuries. XR/XR clavicle LT IMPRESSION: Stable examination when compared to 04/02/2022.
== END 2022-05-16 08:13 | disposition home or self-care (01) ==
LOC: HO.HOSX 08:12
PROVIDERS: Visit Provider Physician Assistant
DX: M89.8X1 Other specified disorders of bone, shoulder (principal); F11.90 Opioid use, unspecified, uncomplicated; G89.4 Chronic pain syndrome; S42.002A Fracture of unspecified part of left clavicle, initial encounter for closed fracture; S93.402A Sprain of unspecified ligament of left ankle, initial encounter; W10.9XXA Fall (on) (from) unspecified stairs and steps, initial encounter; Y93.89 Activity, other specified; Y92.9 Unspecified place or not applicable; Y99.8 Other external cause status
CPT/HCPCS: 73000; 99212

== ENCOUNTER → 2022-06-10 14:14 | Outpatient (BNVA) | payer OTHER, SELFPAY | PROVIDERS: PCP Family Medicine; Visit Provider Nurse Practitioner Family | DX: Z51.81 Encounter for therapeutic drug level monitoring (principal); F11.20 Opioid dependence, uncomplicated; S93.402A Sprain of unspecified ligament of left ankle, initial encounter; S42.002A Fracture of unspecified part of left clavicle, initial encounter for closed fracture; M46.1 Sacroiliitis, not elsewhere classified; M47.816 Spondylosis without myelopathy or radiculopathy, lumbar region; G89.4 Chronic pain syndrome | CPT/HCPCS: 99212 ==

== ENCOUNTER 2022-06-27 12:36 | Outpatient (REF) | payer OTHER, SELFPAY | END 2022-06-27 12:37 | disposition home or self-care (01) | LOC: HO.HOSX 12:36 | PROVIDERS: Visit Provider Physician Assistant | DX: Z13.89 Encounter for screening for other disorder (principal) ==

== ENCOUNTER 2022-07-08 07:46 | Outpatient (REF) | payer OTHER, SELFPAY ==
--- NOTE | ~2022-07-08 | XR_ITS ---
EXAMINATION: XR CLAVICLE, LEFT CLINICAL INFORMATION: Fracture COMPARISON: Previous x-ray April 2022 TECHNIQUE: 2 of the left clavicle. FINDINGS: There is a healing left mid clavicle fracture. Alignment is unchanged. Soft tissues are unremarkable. XR/XR clavicle LT IMPRESSION: Healing left mid clavicle fracture.
== END 2022-07-08 07:47 | disposition home or self-care (01) ==
LOC: HO.HOSX 07:46
PROVIDERS: Visit Provider Physician Assistant
DX: S42.002A Fracture of unspecified part of left clavicle, initial encounter for closed fracture (principal); M89.8X1 Other specified disorders of bone, shoulder; S93.402A Sprain of unspecified ligament of left ankle, initial encounter; F11.90 Opioid use, unspecified, uncomplicated; G89.4 Chronic pain syndrome
CPT/HCPCS: 73000; 99212

== ENCOUNTER → 2022-07-15 14:49 | Outpatient (BNVA) | payer OTHER, SELFPAY | PROVIDERS: PCP Family Medicine; Visit Provider Nurse Practitioner Family | DX: G89.4 Chronic pain syndrome (principal); M47.816 Spondylosis without myelopathy or radiculopathy, lumbar region; M43.06 Spondylolysis, lumbar region; M46.1 Sacroiliitis, not elsewhere classified; S93.402A Sprain of unspecified ligament of left ankle, initial encounter; S42.002A Fracture of unspecified part of left clavicle, initial encounter for closed fracture; Z79.891 Long term (current) use of opiate analgesic | CPT/HCPCS: 99212 ==

== ENCOUNTER → 2022-08-12 13:10 | Outpatient (BNVA) | payer OTHER, SELFPAY | PROVIDERS: PCP Family Medicine; Visit Provider Nurse Practitioner Family | DX: Z51.81 Encounter for therapeutic drug level monitoring (principal); F11.20 Opioid dependence, uncomplicated | CPT/HCPCS: 99211 ==

== ENCOUNTER → 2022-10-10 10:50 | Outpatient (BNVA) | payer OTHER, SELFPAY | PROVIDERS: PCP Family Medicine; Visit Provider Nurse Practitioner Family | DX: Z51.81 Encounter for therapeutic drug level monitoring (principal); F11.20 Opioid dependence, uncomplicated; M43.06 Spondylolysis, lumbar region; M46.1 Sacroiliitis, not elsewhere classified; G89.4 Chronic pain syndrome | CPT/HCPCS: 99212 ==

== ENCOUNTER 2022-10-21 13:29 | Emergency (ER) | payer OTHER, SELFPAY ==
--- NOTE | 2022-10-21 14:12 | ED.URI ---
HPI - URI/Sore Throat General Chief Complaint: Abdominal Pain <SHASHI Gamino - Last Filed: 10/21/22 14:22> Stated Complaint: Flu symptoms/Black stool <SHASHI Gamino - Last Filed: 10/21/22 14:22> Time Seen by Provider: 10/21/22 21:00 <SHASHI Gamino - Last Filed: 10/21/22 14:22> Source: patient <Moustapha Wright MD - Last Filed: 10/21/22 22:26> Mode of arrival: ambulatory <Moustapha Wright MD - Last Filed: 10/21/22 22:26> Limitations: no limitations <Moustapha Wright MD - Last Filed: 10/21/22 22:26> History of Present Illness HPI Narrative: Patient with multiple complaints been sick since 10/15 with other friends also sick patient been testing for COVID at home negative already been vaccinated but received only 2 doses comes in with dry cough also complaining of black stool and vomiting with blood streaks last vomitus was 3 days ago like stool was yesterday after she took Pepto-Bismol COVID test was done in the triage which came positive patient does not believe that test is positive saturating 100% at room air no history of hemorrhoids no history of rectal bleed no abdominal pain <Moustapha Wright MD - Last Filed: 10/21/22 22:26> Related Data Home Medications: Home Medications Medication Instructions Recorded Confirmed methylphenidate HCl 36 mg 36 mg PO QAM 10/03/20 08/12/22 tablet,extended release 24 hr melatonin 5 mg capsule 5 mg PO .hs 02/13/21 08/12/22 oxybutynin chloride 10 mg 10 mg PO DAILY 03/13/21 08/12/22 tablet,extended release 24 hr duloxetine 30 mg capsule,delayed 30 mg PO DAILY 12/11/21 08/12/22 release estradiol cypionate 5 mg/mL mg IM 04/17/22 08/12/22 intramuscular oil (Depo-Estradiol) cyanocobalamin (vitamin B-12) 1,000 mcg PO DAILY 05/16/22 08/12/22 1,000 mcg tablet,extended release aripiprazole 2 mg tablet 2 mg PO DAILY 07/15/22 08/12/22 duloxetine 60 mg capsule,delayed 60 mg PO DAILY 07/15/22 08/12/22 release multivitamin 1 tab PO DAILY 07/15/22 08/12/22 aripiprazole 5 mg tablet 5 mg PO DAILY 09/09/22 doxycycline monohydrate 100 mg 100 mg PO BID 09/09/22 capsule melatonin 5 mg tablet 5 mg PO BEDTIME 10/10/22 Previous Rx's Medication Instructions Recorded naloxone 4 mg/actuation nasal 4 mg intranasal Q2M PRN opioid 11/21/20 spray (Narcan) overdose #2 ea ibuprofen 600 mg tablet 600 mg PO Q6H PRN pain #20 tabs 04/17/21 diclofenac sodium 1 % topical gel 2 g topical TID PRN Pain, Moderate 10/18/21 (Voltaren Arthritis Pain) #100 grams polyethylene glycol 3350 17 gram 17 g PO DAILY PRN for constipation 09/29/22 oral powder packet #30 ea oxycodone-acetaminophen 5 mg-325 1 tab PO TID PRN severe pain 10/10/22 mg tablet (Percocet) (scale score 7-10) 30 days #90 tabs benzonatate 200 mg capsule 200 mg PO TID PRN cough #20 caps 10/21/22 <SHASHI Gamino - Last Filed: 10/21/22 14:22> Allergies/Adverse Reactions: Allergies Allergy/AdvReac Type Severity Reaction Status Date / Time No Known Allergies Allergy Verified 10/10/22 11:01 <SHASHI Gamino - Last Filed: 10/21/22 14:22> Review of Systems Review of Systems: Yes all other systems are reviewed and are negative <Moustapha Wright MD - Last Filed: 10/21/22 22:26> [facility] Past Medical History Medical History: Medical History Arthritis Breast implant in situ Carpal tunnel syndrome, bilateral Chronic pain syndrome History of breast implant removal Spondylolysis, 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 <SHASHI Gamino - Last Filed: 10/21/22 14:22> Surgical History: Surgical History Person who has undergone gender reassignment surgery <SHASHI Gamino - Last Filed: 10/21/22 14:22> Social History Social History: Social History Alcohol intake: current Alcohol intake frequency: holidays/special occasions only Alcohol type: wine Patient Tobacco Use Status: Former Tobacco user Advance Directives: No Advance Directives Information Provided: No Current occupational status: disabled Current occupation: rt hand <SHASHI Gamino - Last Filed: 10/21/22 14:22> Physical Exam Vital Signs: Vital Signs: Last Vital Signs Pulse 75 10/21/22 14:16 Resp 18 10/21/22 14:16 BP 132/94 H 10/21/22 14:16 Pulse Ox 98 10/21/22 14:16 O2 Del Method 10/21/22 14:16 BMI result Body Mass Index 30.2 <SHASHI Gamino - Last Filed: 10/21/22 14:22> Vital Signs: Last Vital Signs Pulse 75 10/21/22 14:16 Resp 18 10/21/22 14:16 BP 132/94 H 10/21/22 14:16 Pulse Ox 98 10/21/22 14:16 O2 Del Method 10/21/22 14:16 BMI result Body Mass Index 30.2 <Moustapha Wright MD - Last Filed: 10/21/22 22:26> Appearance: Alert. Oriented X3. No acute distress. Eyes: PERRLA, No Nystagmus ENT: Pharynx normal. Oral Mucosa moist Neck: Normal inspection. Neck supple. CVS: Normal heart rate and rhythm. Pulses normal. Respiratory: No respiratory distress. Equal air entry bilateral, no wheezing/rales/rhonchi Abdomen: Soft and nontender. Bowel sounds are present, no mass palpable, no CVA tenderness rectal: No hemorrhoids palpable no blood on the finger brown stool guaiac negative Skin: Skin warm and dry. Normal skin color. Normal skin turgor. Extremities: No lower extremity edema. No calf tenderness Neuro: Oriented X 3. No motor deficit. No sensory deficit.No cerebellar signs , cranial nerves II-XII intact <Moustapha Wright MD - Last Filed: 10/21/22 22:26> Course Course Course Narrative: RMElvis--37-year-old female with a past medical history of arthritis, chronic pain, presenting to the ED complaining of URI sx last week, now with hematemesis and orange stool starting the which changed to black stools today. Reports taking pepto-bismol initially with some relief. Also reports abdominal discomfort and numbness in legs. In wheelchair on exam, nontoxic appearing, VSS. Reports chronic issues with urinary incontinence, currently wearing diaper Labs, UA, Occult stool and COVID/flu ordered in triage <SHASHI Gamino - Last Filed: 10/21/22 14:22> Medications Administered Discontinued Medications Generic Name Dose Route Start Last Admin Trade Name Freq PRN Reason Stop Dose Admin Benzonatate 200 mg 10/21/22 21:19 10/21/22 21:55 Benzonatate 100 Mg Capsule PO 10/21/22 21:20 200 mg ONCE ONE Administration Sodium Chloride 1,000 mls @ 999 mls/hr 10/21/22 14:15 10/21/22 21:37 Ns IV 10/21/22 15:15 Not Given .Q1H1M TONYA <SHASHI Gamino - Last Filed: 10/21/22 14:22> Medications Administered Discontinued Medications Generic Name Dose Route Start Last Admin Trade Name Freq PRN Reason Stop Dose Admin Benzonatate 200 mg 10/21/22 21:19 10/21/22 21:55 Benzonatate 100 Mg Capsule PO 10/21/22 21:20 200 mg ONCE ONE Administration Sodium Chloride 1,000 mls @ 999 mls/hr 10/21/22 14:15 10/21/22 21:37 Ns IV 10/21/22 15:15 Not Given .Q1H1M TONYA <Moustapha Wright MD - Last Filed: 10/21/22 22:26> Medical Decision Making Medical Decision Making MDM Narrative: Patient with multiple nonspecific complaints COVID positive chest clear to auscultation saturating 100% at room air already been 5 days with symptoms. Will discharge patient home on Tessalon and supportive treatment <Moustapha Wright MD - Last Filed: 10/21/22 22:26> Lab Data MDM Lab Attestation statement: I reviewed the patient's lab results. <Moustapha Wright MD - Last Filed: 10/21/22 22:26> Result Diagrams: : 10/21/22 16:10 10/21/22 16:10 <SHASHI Gamino - Last Filed: 10/21/22 14:22> Labs: Lab Results 10/21/22 10/21/22 10/21/22 Range/Units 16:10 16:10 16:10 WBC 5.5 (4.8-10.8) X10*3/uL RBC 4.90 (4.20-5.50) X10*6/uL Hgb 15.0 (12.0-16.0) g/dl Hct 42.6 (37.0-47.0) % MCV 86.9 (80.0-98.0) fL MCH 30.6 (27.0-33.0) pg MCHC 35.2 H (31.0-35.0) g/dl RDW 11.7 (11.0-16.0) % Plt Count 336 (160-400) X10*3/uL MPV 8.9 L (9.4-12.3) fL Immature Gran % (Auto) 0.2 (0.0-0.4) % Neut % (Auto) 50.6 (45-73) % Lymph % (Auto) 36.8 (20-40) % [place] % (Auto) 9.5 (2-11) % Eos % (Auto) 2.4 (0-4) % Baso % (Auto) 0.5 (0-2) % Lymph # (Auto) 2.0 (1.2-4.9) X10*3/uL [place] # (Auto) 0.5 (0.1-1.2) X10*3/uL Eos # (Auto) 0.1 (0.0-0.4) X10*3/uL Baso # (Auto) 0.0 (0.0-0.2) X10*3/uL Abs Immat Gran (auto) 0.01 (0.00-0.03) X10*3/uL Absolute Neuts (auto) 2.8 (2.0-8.3) x10*3/uL Absolute Nucleated RBC 0.000 (0.0-0.012) X10*3/uL Nucleated RBC % (auto) 0.0 (0.0-0.2) /100WBC PT (10.0-13.1) SEC INR (0.9-1.1) Sodium 139 (135-145) mmol/L Potassium 4.1 (3.3-5.1) mmol/L Chloride 107 (96-108) mmol/L Carbon Dioxide 25 (22-29) mmol/L Anion Gap 11 L (12-20) BUN 7 L (9-16) mg/dL Creatinine 0.70 (0.5-1.4) mg/dL Estim Creat Clear Calc 118.3 Estimated GFR > 60 Random Glucose 109 (60-115) mg/dL Calcium 9.3 (8.4-10.2) mg/dL Magnesium 2.0 (1.6-2.6) mg/dL Total Bilirubin 0.7 (0.0-1.0) mg/dL Direct Bilirubin 0.2 (0.0-0.5) mg/dL AST 27 (5-31) U/L ALT 27 (0-31) U/L Alkaline Phosphatase 110 (39-117) U/L Total Protein 7.4 (6.5-8.0) g/dL Albumin 4.7 (3.5-5.0) g/dL Lipase 16 (8-78) U/L Urine Color Urine Appearance Urine pH (5.0-9.0) Ur Specific [place] (1.005-1.025) Urine Protein (Neg-Trace) mg/dL Urine Glucose (UA) (Negative) mg/dL Urine Ketones (Negative) mg/dL Urine Blood (Negative) Urine Nitrite (Negative) Ur Leukocyte Esterase (Negative) Stool Occult Blood (NEGATIVE) COVID-19 (ELVIS) (Negative) COVID-19 Clin Com Influenza Type A (GREGORY) Negative (Negative) Influenza Type B (GREGORY) Negative (Negative) Influenza A & B Note See Note 10/21/22 10/21/22 10/21/22 Range/Units 16:10 16:10 16:10 WBC (4.8-10.8) X10*3/uL RBC (4.20-5.50) X10*6/uL Hgb (12.0-16.0) g/dl Hct (37.0-47.0) % MCV (80.0-98.0) fL MCH (27.0-33.0) pg MCHC (31.0-35.0) g/dl RDW (11.0-16.0) % Plt Count (160-400) X10*3/uL MPV (9.4-12.3) fL Immature Gran % (Auto) (0.0-0.4) % Neut % (Auto) (45-73) % Lymph % (Auto) (20-40) % [place] % (Auto) (2-11) % Eos % (Auto) (0-4) % Baso % (Auto) (0-2) % Lymph # (Auto) (1.2-4.9) X10*3/uL [place] # (Auto) (0.1-1.2) X10*3/uL Eos # (Auto) (0.0-0.4) X10*3/uL Baso # (Auto) (0.0-0.2) X10*3/uL Abs Immat Gran (auto) (0.00-0.03) X10*3/uL Absolute Neuts (auto) (2.0-8.3) x10*3/uL Absolute Nucleated RBC (0.0-0.012) X10*3/uL Nucleated RBC % (auto) (0.0-0.2) /100WBC PT 12.3 (10.0-13.1) SEC INR 1.1 (0.9-1.1) Sodium (135-145) mmol/L Potassium (3.3-5.1) mmol/L Chloride (96-108) mmol/L Carbon Dioxide (22-29) mmol/L Anion Gap (12-20) BUN (9-16) mg/dL Creatinine (0.5-1.4) mg/dL Estim Creat Clear Calc Estimated GFR Random Glucose (60-115) mg/dL Calcium (8.4-10.2) mg/dL Magnesium (1.6-2.6) mg/dL Total Bilirubin (0.0-1.0) mg/dL Direct Bilirubin (0.0-0.5) mg/dL AST (5-31) U/L ALT (0-31) U/L Alkaline Phosphatase (39-117) U/L Total Protein (6.5-8.0) g/dL Albumin (3.5-5.0) g/dL Lipase (8-78) U/L Urine Color Yellow Urine Appearance Clear Urine pH 6.0 (5.0-9.0) Ur Specific [place] 1.010 (1.005-1.025) Urine Protein Negative (Neg-Trace) mg/dL Urine Glucose (UA) Negative (Negative) mg/dL Urine Ketones Negative (Negative) mg/dL Urine Blood Negative (Negative) Urine Nitrite Negative (Negative) Ur Leukocyte Esterase Negative (Negative) Stool Occult Blood (NEGATIVE) COVID-19 (ELVIS) Positive A (Negative) COVID-19 Clin Com See Note Influenza Type A (GREGORY) (Negative) Influenza Type B (GREGORY) (Negative) Influenza A & B Note 10/21/22 Range/Units 21:51 WBC (4.8-10.8) X10*3/uL RBC (4.20-5.50) X10*6/uL Hgb (12.0-16.0) g/dl Hct (37.0-47.0) % MCV (80.0-98.0) fL MCH (27.0-33.0) pg MCHC (31.0-35.0) g/dl RDW (11.0-16.0) % Plt Count (160-400) X10*3/uL MPV (9.4-12.3) fL Immature Gran % (Auto) (0.0-0.4) % Neut % (Auto) (45-73) % Lymph % (Auto) (20-40) % [place] % (Auto) (2-11) % Eos % (Auto) (0-4) % Baso % (Auto) (0-2) % Lymph # (Auto) (1.2-4.9) X10*3/uL [place] # (Auto) (0.1-1.2) X10*3/uL Eos # (Auto) (0.0-0.4) X10*3/uL Baso # (Auto) (0.0-0.2) X10*3/uL Abs Immat Gran (auto) (0.00-0.03) X10*3/uL Absolute Neuts (auto) (2.0-8.3) x10*3/uL Absolute Nucleated RBC (0.0-0.012) X10*3/uL Nucleated RBC % (auto) (0.0-0.2) /100WBC PT (10.0-13.1) SEC INR (0.9-1.1) Sodium (135-145) mmol/L Potassium (3.3-5.1) mmol/L Chloride (96-108) mmol/L Carbon Dioxide (22-29) mmol/L Anion Gap (12-20) BUN (9-16) mg/dL Creatinine (0.5-1.4) mg/dL Estim Creat Clear Calc Estimated GFR Random Glucose (60-115) mg/dL Calcium (8.4-10.2) mg/dL Magnesium (1.6-2.6) mg/dL Total Bilirubin (0.0-1.0) mg/dL Direct Bilirubin (0.0-0.5) mg/dL AST (5-31) U/L ALT (0-31) U/L Alkaline Phosphatase (39-117) U/L Total Protein (6.5-8.0) g/dL Albumin (3.5-5.0) g/dL Lipase (8-78) U/L Urine Color Urine Appearance Urine pH (5.0-9.0) Ur Specific [place] (1.005-1.025) Urine Protein (Neg-Trace) mg/dL Urine Glucose (UA) (Negative) mg/dL Urine Ketones (Negative) mg/dL Urine Blood (Negative) Urine Nitrite (Negative) Ur Leukocyte Esterase (Negative) Stool Occult Blood NEGATIVE (NEGATIVE) COVID-19 (ELVIS) (Negative) COVID-19 Clin Com Influenza Type A (GREGORY) (Negative) Influenza Type B (GREGORY) (Negative) Influenza A & B Note <SHASHI Gamino - Last Filed: 10/21/22 14:22> Lab Results 10/21/22 10/21/22 10/21/22 Range/Units 16:10 16:10 16:10 WBC 5.5 (4.8-10.8) X10*3/uL RBC 4.90 (4.20-5.50) X10*6/uL Hgb 15.0 (12.0-16.0) g/dl Hct 42.6 (37.0-47.0) % MCV 86.9 (80.0-98.0) fL MCH 30.6 (27.0-33.0) pg MCHC 35.2 H (31.0-35.0) g/dl RDW 11.7 (11.0-16.0) % Plt Count 336 (160-400) X10*3/uL MPV 8.9 L (9.4-12.3) fL Immature Gran % (Auto) 0.2 (0.0-0.4) % Neut % (Auto) 50.6 (45-73) % Lymph % (Auto) 36.8 (20-40) % [place] % (Auto) 9.5 (2-11) % Eos % (Auto) 2.4 (0-4) % Baso % (Auto) 0.5 (0-2) % Lymph # (Auto) 2.0 (1.2-4.9) X10*3/uL [place] # (Auto) 0.5 (0.1-1.2) X10*3/uL Eos # (Auto) 0.1 (0.0-0.4) X10*3/uL Baso # (Auto) 0.0 (0.0-0.2) X10*3/uL Abs Immat Gran (auto) 0.01 (0.00-0.03) X10*3/uL Absolute Neuts (auto) 2.8 (2.0-8.3) x10*3/uL Absolute Nucleated RBC 0.000 (0.0-0.012) X10*3/uL Nucleated RBC % (auto) 0.0 (0.0-0.2) /100WBC PT (10.0-13.1) SEC INR (0.9-1.1) Sodium 139 (135-145) mmol/L Potassium 4.1 (3.3-5.1) mmol/L Chloride 107 (96-108) mmol/L Carbon Dioxide 25 (22-29) mmol/L Anion Gap 11 L (12-20) BUN 7 L (9-16) mg/dL Creatinine 0.70 (0.5-1.4) mg/dL Estim Creat Clear Calc 118.3 Estimated GFR > 60 Random Glucose 109 (60-115) mg/dL Calcium 9.3 (8.4-10.2) mg/dL Magnesium 2.0 (1.6-2.6) mg/dL Total Bilirubin 0.7 (0.0-1.0) mg/dL Direct Bilirubin 0.2 (0.0-0.5) mg/dL AST 27 (5-31) U/L ALT 27 (0-31) U/L Alkaline Phosphatase 110 (39-117) U/L Total Protein 7.4 (6.5-8.0) g/dL Albumin 4.7 (3.5-5.0) g/dL Lipase 16 (8-78) U/L Urine Color Urine Appearance Urine pH (5.0-9.0) Ur Specific [place] (1.005-1.025) Urine Protein (Neg-Trace) mg/dL Urine Glucose (UA) (Negative) mg/dL Urine Ketones (Negative) mg/dL Urine Blood (Negative) Urine Nitrite (Negative) Ur Leukocyte Esterase (Negative) Stool Occult Blood (NEGATIVE) COVID-19 (ELVIS) (Negative) COVID-19 Clin Com Influenza Type A (GREGORY) Negative (Negative) Influenza Type B (GREGORY) Negative (Negative) Influenza A & B Note See Note 10/21/22 10/21/22 10/21/22 Range/Units 16:10 16:10 16:10 WBC (4.8-10.8) X10*3/uL RBC (4.20-5.50) X10*6/uL Hgb (12.0-16.0) g/dl Hct (37.0-47.0) % MCV (80.0-98.0) fL MCH (27.0-33.0) pg MCHC (31.0-35.0) g/dl RDW (11.0-16.0) % Plt Count (160-400) X10*3/uL MPV (9.4-12.3) fL Immature Gran % (Auto) (0.0-0.4) % Neut % (Auto) (45-73) % Lymph % (Auto) (20-40) % [place] % (Auto) (2-11) % Eos % (Auto) (0-4) % Baso % (Auto) (0-2) % Lymph # (Auto) (1.2-4.9) X10*3/uL [place] # (Auto) (0.1-1.2) X10*3/uL Eos # (Auto) (0.0-0.4) X10*3/uL Baso # (Auto) (0.0-0.2) X10*3/uL Abs Immat Gran (auto) (0.00-0.03) X10*3/uL Absolute Neuts (auto) (2.0-8.3) x10*3/uL Absolute Nucleated RBC (0.0-0.012) X10*3/uL Nucleated RBC % (auto) (0.0-0.2) /100WBC PT 12.3 (10.0-13.1) SEC INR 1.1 (0.9-1.1) Sodium (135-145) mmol/L Potassium (3.3-5.1) mmol/L Chloride (96-108) mmol/L Carbon Dioxide (22-29) mmol/L Anion Gap (12-20) BUN (9-16) mg/dL Creatinine (0.5-1.4) mg/dL Estim Creat Clear Calc Estimated GFR Random Glucose (60-115) mg/dL Calcium (8.4-10.2) mg/dL Magnesium (1.6-2.6) mg/dL Total Bilirubin (0.0-1.0) mg/dL Direct Bilirubin (0.0-0.5) mg/dL AST (5-31) U/L ALT (0-31) U/L Alkaline Phosphatase (39-117) U/L Total Protein (6.5-8.0) g/dL Albumin (3.5-5.0) g/dL Lipase (8-78) U/L Urine Color Yellow Urine Appearance Clear Urine pH 6.0 (5.0-9.0) Ur Specific [place] 1.010 (1.005-1.025) Urine Protein Negative (Neg-Trace) mg/dL Urine Glucose (UA) Negative (Negative) mg/dL Urine Ketones Negative (Negative) mg/dL Urine Blood Negative (Negative) Urine Nitrite Negative (Negative) Ur Leukocyte Esterase Negative (Negative) Stool Occult Blood (NEGATIVE) COVID-19 (ELVIS) Positive A (Negative) COVID-19 Clin Com See Note Influenza Type A (GREGORY) (Negative) Influenza Type B (GREGORY) (Negative) Influenza A & B Note 10/21/22 Range/Units 21:51 WBC (4.8-10.8) X10*3/uL RBC (4.20-5.50) X10*6/uL Hgb (12.0-16.0) g/dl Hct (37.0-47.0) % MCV (80.0-98.0) fL MCH (27.0-33.0) pg MCHC (31.0-35.0) g/dl RDW (11.0-16.0) % Plt Count (160-400) X10*3/uL MPV (9.4-12.3) fL Immature Gran % (Auto) (0.0-0.4) % Neut % (Auto) (45-73) % Lymph % (Auto) (20-40) % [place] % (Auto) (2-11) % Eos % (Auto) (0-4) % Baso % (Auto) (0-2) % Lymph # (Auto) (1.2-4.9) X10*3/uL [place] # (Auto) (0.1-1.2) X10*3/uL Eos # (Auto) (0.0-0.4) X10*3/uL Baso # (Auto) (0.0-0.2) X10*3/uL Abs Immat Gran (auto) (0.00-0.03) X10*3/uL Absolute Neuts (auto) (2.0-8.3) x10*3/uL Absolute Nucleated RBC (0.0-0.012) X10*3/uL Nucleated RBC % (auto) (0.0-0.2) /100WBC PT (10.0-13.1) SEC INR (0.9-1.1) Sodium (135-145) mmol/L Potassium (3.3-5.1) mmol/L Chloride (96-108) mmol/L Carbon Dioxide (22-29) mmol/L Anion Gap (12-20) BUN (9-16) mg/dL Creatinine (0.5-1.4) mg/dL Estim Creat Clear Calc Estimated GFR Random Glucose (60-115) mg/dL Calcium (8.4-10.2) mg/dL Magnesium (1.6-2.6) mg/dL Total Bilirubin (0.0-1.0) mg/dL Direct Bilirubin (0.0-0.5) mg/dL AST (5-31) U/L ALT (0-31) U/L Alkaline Phosphatase (39-117) U/L Total Protein (6.5-8.0) g/dL Albumin (3.5-5.0) g/dL Lipase (8-78) U/L Urine Color Urine Appearance Urine pH (5.0-9.0) Ur Specific [place] (1.005-1.025) Urine Protein (Neg-Trace) mg/dL Urine Glucose (UA) (Negative) mg/dL Urine Ketones (Negative) mg/dL Urine Blood (Negative) Urine Nitrite (Negative) Ur Leukocyte Esterase (Negative) Stool Occult Blood NEGATIVE (NEGATIVE) COVID-19 (ELVIS) (Negative) COVID-19 Clin Com Influenza Type A (GREGORY) (Negative) Influenza Type B (GREGORY) (Negative) Influenza A & B Note <Moustapha Wright MD - Last Filed: 10/21/22 22:26> Discharge Plan Discharge Clinical Impression: COVID-19 <SHASHI Gamino - Last Filed: 10/21/22 14:22> Patient Disposition: Home, Self-Care <SHASHI Gamino - Last Filed: 10/21/22 14:22> Instructions: COVID-19 (Coronavirus Disease 2019) (ED) <SHASHI Gamino - Last Filed: 10/21/22 14:22> Additional Instructions: Drink plenty of fluids Cough drops as prescribed Tylenol/Motrin for body aches <SHASHI Gamino - Last Filed: 10/21/22 14:22> Prescriptions: New benzonatate 200 mg capsule 200 mg PO TID PRN (Reason: cough) Qty: 20 0RF No Action polyethylene glycol 3350 17 gram powder in packet 17 g PO DAILY PRN (Reason: for constipation) Qty: 30 0RF ibuprofen 600 mg tablet 600 mg PO Q6H PRN (Reason: pain) Qty: 20 0RF diclofenac sodium [Voltaren Arthritis Pain] 1 % gel 2 g topical TID PRN (Reason: Pain, Moderate) Qty: 100 0RF Rx Instructions: apply to single elbow, wrist or hand; for hand includes palm/fingers/back of hand Narcan 4 mg/actuation spray,non-aerosol 4 mg intranasal Q2M PRN (Reason: opioid overdose) Qty: 2 0RF Rx Instructions: spray 1 dose into ONE nostril; alternate nostrils w each dose until help arrives melatonin 5 mg capsule 5 mg PO .hs oxybutynin chloride 10 mg tablet extended release 24hr 10 mg PO DAILY methylphenidate HCl 36 mg tablet extended release 24hr 36 mg PO QAM cyanocobalamin (vitamin B-12) 1,000 mcg tablet extended release 1,000 mcg PO DAILY multivitamin Tablet 1 tab PO DAILY aripiprazole 2 mg tablet 2 mg PO DAILY duloxetine 60 mg capsule,delayed release(DR/EC) 60 mg PO DAILY melatonin 5 mg tablet 5 mg PO BEDTIME oxycodone-acetaminophen [Percocet] 5-325 mg tablet 1 tab PO TID PRN (Reason: severe pain (scale score 7-10)) 30 Days Qty: 90 0RF duloxetine 30 mg capsule,delayed release(DR/EC) 30 mg PO DAILY Depo-Estradiol 5 mg/mL oil IM aripiprazole 5 mg tablet 5 mg PO DAILY doxycycline monohydrate 100 mg capsule 100 mg PO BID <SHASHI Gamino - Last Filed: 10/21/22 14:22> Interventions: ED Discharge Assessment Last Done: 10/21/22 22:16 <SHASHI Gamino - Last Filed: 10/21/22 14:22>
[2022-10-21 14:16] VITALS: BP 132/94; PULSE 75; RESP 18; O2SAT 98; BMI 30.2
[2022-10-21 16:16] LABS: MANUAL DIFF FLAG NO
[2022-10-21 16:18] LABS: Basophils Percent Auto 0.5 % (0-2); Eosinophils Absolute Auto 0.1 X10*3/uL (0.0-0.4); Eosinophils Percent Auto 2.4 % (0-4); Hematocrit 42.6 % (37.0-47.0); Imm Gran Abs Auto 0.01 X10*3/uL (0.00-0.03); Imm Gran Pct Auto 0.2 % (0.0-0.4); Lymphocytes Percent Auto 36.8 % (20-40); Mean Corpuscular HGB Conc 35.2 g/dl (31.0-35.0); Mean Corpuscular Hemoglobin 30.6 pg (27.0-33.0); Mean Corpuscular Volume 86.9 fL (80.0-98.0); Mean Platelet Volume 8.9 fL (9.4-12.3); Monocytes Absolute Auto 0.5 X10*3/uL (0.1-1.2); Monocytes Percent Auto 9.5 % (2-11); Neutrophils Absolute Auto 2.8 x10*3/uL (2.0-8.3); Neutrophils Percent Auto 50.6 % (45-73); Platelet Count 336 X10*3/uL (160-400); Red Cell Distribution Width 11.7 % (11.0-16.0); White Blood Count 5.5 X10*3/uL (4.8-10.8)
[2022-10-21 16:23] LABS: COVID-19 Test Positive (Negative); IDNOW Serial# 16C4AD1C
[2022-10-21 16:24] LABS: Appearance Urine Clear; Color Urine Yellow; Glucose Urine UA Negative (Negative); Leukocyte Esterase Urine Negative (Negative); Nitrite Urine Negative (Negative); Urine Blood Negative (Negative); Urine Ketones Negative (Negative); Urine Protein Negative (Neg-Trace)
[2022-10-21 16:25] LABS: INTERNATIONAL NORM RATIO 1.1 (0.9-1.1); Prothrombin Time 12.3 SEC (10.0-13.1)
[2022-10-21 16:33] LABS: Alanine Aminotransferase 27 U/L (0-31); Albumin Level 4.7 g/dL (3.5-5.0); Alkaline Phosphatase 110 U/L (39-117); Anion Gap 11 (12-20); Aspartate Amino Transferase 27 U/L (5-31); Bilirubin Direct 0.2 mg/dL (0.0-0.5); Bilirubin Total 0.7 mg/dL (0.0-1.0); Blood Urea Nitrogen 7 mg/dL (9-16); Calcium 9.3 mg/dL (8.4-10.2); Carbon Dioxide 25 mmol/L (22-29); Chloride 107 mmol/L (96-108); Creatinine Clr Calc Pharmacy 118.3; Estimated Glomerular Filt Rate > 60; Glucose Random 109 mg/dL (60-115); Lipase 16 U/L (8-78); Potassium 4.1 mmol/L (3.3-5.1); Sodium 139 mmol/L (135-145); Total Protein 7.4 g/dL (6.5-8.0)
[2022-10-21 16:36] LABS: IDNOW Serial# 55D5AD1C; Influenza A Negative (Negative); Influenza B2 Negative (Negative)
[2022-10-21] MEDS: Benzonatate 100 MG CAPSULE 200 MG PO (21:55)
[2022-10-21 22:01] LABS: OBS Int Ctl Valid YES; OBS1 NEGATIVE (NEGATIVE)
== END 2022-10-21 22:22 | disposition home or self-care (01) ==
PROVIDERS: Physician Assistant; Emergency Provider Internal Medicine; PCP Family Medicine
DX: U07.1 COVID-19 (principal)
CPT/HCPCS: 36415; 80048; 80076; 81003; 82272; 83690; 83735; 85025; 85610; 87502; 87635; 99282; 99283

== ENCOUNTER → 2022-11-10 11:12 | Outpatient (BNVA) | payer OTHER, SELFPAY | PROVIDERS: PCP Family Medicine; Visit Provider Nurse Practitioner Family | DX: Z51.81 Encounter for therapeutic drug level monitoring (principal); F11.20 Opioid dependence, uncomplicated; M46.1 Sacroiliitis, not elsewhere classified; M43.06 Spondylolysis, lumbar region; M47.816 Spondylosis without myelopathy or radiculopathy, lumbar region; G89.4 Chronic pain syndrome | CPT/HCPCS: 99212 ==

== ENCOUNTER 2022-11-27 14:23 | Outpatient (REF) | payer OTHER, SELFPAY ==
--- NOTE | ~2022-11-27 | XR_ITS ---
EXAMINATION: XR CHEST 2 VIEWS CLINICAL INFORMATION: Left back pain. COMPARISON: Chest radiographs, most recently 04/02/2022. TECHNIQUE: Frontal and lateral views of the chest were obtained. FINDINGS: The heart, great vessels, pulmonary vasculature and mediastinum are normal. The lungs show no focal infiltrate, effusion or pneumothorax. There is no acute osseous abnormality. XR/XR chest 2V IMPRESSION: No active cardiopulmonary disease.
== END 2022-11-27 14:24 | disposition home or self-care (01) ==
LOC: HO.XRAY 14:23
PROVIDERS: PCP Family Medicine; Visit Provider Internal Medicine
DX: M54.9 Dorsalgia, unspecified (principal)
CPT/HCPCS: 71046

== ENCOUNTER → 2022-12-15 10:47 | Outpatient (BNVA) | payer OTHER, SELFPAY | PROVIDERS: PCP Family Medicine; Visit Provider Nurse Practitioner Family | DX: Z51.81 Encounter for therapeutic drug level monitoring (principal); F11.20 Opioid dependence, uncomplicated; M46.1 Sacroiliitis, not elsewhere classified; M43.06 Spondylolysis, lumbar region; M47.816 Spondylosis without myelopathy or radiculopathy, lumbar region; G89.4 Chronic pain syndrome | CPT/HCPCS: 99212 ==

== ENCOUNTER → 2023-01-12 13:14 | Outpatient (BNVA) | payer OTHER, SELFPAY | PROVIDERS: PCP Family Medicine; Visit Provider Nurse Practitioner Family | DX: Z51.81 Encounter for therapeutic drug level monitoring (principal); F11.20 Opioid dependence, uncomplicated; M47.816 Spondylosis without myelopathy or radiculopathy, lumbar region; M43.06 Spondylolysis, lumbar region; M46.1 Sacroiliitis, not elsewhere classified; G89.4 Chronic pain syndrome | CPT/HCPCS: 99212 ==

== ENCOUNTER 2023-01-30 16:37 | Outpatient (REF) | payer OTHER, SELFPAY ==
--- NOTE | ~2023-01-30 | XR_ITS ---
EXAMINATION: XR FOOT, LEFT CLINICAL INFORMATION: Pain COMPARISON: Previous x-ray March 2012 TECHNIQUE: AP, lateral, and oblique views of the left foot. FINDINGS: The bones and soft tissues are normal. No fracture. Alignment is anatomic. Joint spaces are maintained. XR/XR foot LT min 3V IMPRESSION: Normal left foot.
== END 2023-01-30 16:38 | disposition home or self-care (01) ==
LOC: HO.XRAY 16:37
PROVIDERS: Absent Provider Family Medicine; PCP Family Medicine; Visit Provider Nurse Practitioner Family
DX: M79.672 Pain in left foot (principal)
CPT/HCPCS: 73630

== ENCOUNTER → 2023-02-09 13:13 | Outpatient (BNVA) | payer OTHER, SELFPAY | PROVIDERS: PCP Family Medicine; Visit Provider Nurse Practitioner Family | DX: Z51.81 Encounter for therapeutic drug level monitoring (principal); F11.20 Opioid dependence, uncomplicated; M47.816 Spondylosis without myelopathy or radiculopathy, lumbar region; M43.06 Spondylolysis, lumbar region; M46.1 Sacroiliitis, not elsewhere classified; G89.4 Chronic pain syndrome | CPT/HCPCS: 99212 ==

== ENCOUNTER → 2023-03-09 13:07 | Outpatient (BNVA) | payer OTHER, SELFPAY | PROVIDERS: PCP Family Medicine; Visit Provider Nurse Practitioner Family | DX: G89.4 Chronic pain syndrome (principal); M46.1 Sacroiliitis, not elsewhere classified; M43.06 Spondylolysis, lumbar region; M47.816 Spondylosis without myelopathy or radiculopathy, lumbar region; Z79.891 Long term (current) use of opiate analgesic | CPT/HCPCS: 99212 ==

== ENCOUNTER → 2023-04-13 12:47 | Outpatient (BNVA) | payer OTHER, SELFPAY | PROVIDERS: PCP Family Medicine; Visit Provider Nurse Practitioner Family | DX: G89.4 Chronic pain syndrome (principal); M46.1 Sacroiliitis, not elsewhere classified; M43.06 Spondylolysis, lumbar region; M47.816 Spondylosis without myelopathy or radiculopathy, lumbar region; M25.50 Pain in unspecified joint; Z79.891 Long term (current) use of opiate analgesic | CPT/HCPCS: 99212 ==

== ENCOUNTER 2023-04-27 12:20 | Outpatient (REF) | payer OTHER, SELFPAY ==
[2023-05-07 04:43] LABS: Estradiol Free 3.05 pg/mL; Estradiol, Ultrasensitive 190 pg/mL
== END 2023-04-27 12:21 | disposition home or self-care (01) ==
LOC: HO.HHCL 12:20
PROVIDERS: Visit Provider Family Medicine
DX: F64.0 Transsexualism (principal)
CPT/HCPCS: 36415; 82670; 82681

== ENCOUNTER 2023-05-04 15:08 | Outpatient (REF) | payer OTHER, SELFPAY ==
[2023-05-09 23:29] LABS: Estradiol Free 0.72 pg/mL; Estradiol, Ultrasensitive 46 pg/mL
== END 2023-05-04 15:09 | disposition home or self-care (01) ==
LOC: HO.HHCL 15:08
PROVIDERS: Visit Provider Family Medicine
DX: F64.0 Transsexualism (principal)
CPT/HCPCS: 36415; 82670; 82681

== ENCOUNTER 2023-05-11 12:53 | Outpatient (AMB) | payer OTHER, SELFPAY ==
--- NOTE | 2023-05-11 12:55 | MHC.OFFVIS ---
Intake Vital Signs 05/11/23 13:05 Height 5 ft 6 in Weight 187 lb 2 oz BMI 30.2 BP 122/70 Blood Pressure Location Rt brachial Position Sitting Pulse 83 Pulse Source Pulse Oximeter Pulse Oximetry (%) 98 Oxygen Delivery Method Room Air Intake Visit Reasons: PILL COUNT Intake Note: Cherri comes in today for a pill count to oxycodone-acetaminophen, patient should have 66 tablets and presents with 72 tablets which she last took today 05/11/23 at 2am. Pain today 04/27. 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 Accompanied by: Self / Same As Patient Allergies No Known Allergies Allergy (Verified 05/11/23 13:06) Medication List - Last Reconciled 05/11/23 by ASHLEY Pierce aripiprazole 2 mg PO DAILY aripiprazole 5 mg PO DAILY aspirin 81 mg PO DAILY benzonatate 200 mg PO TID PRN cariprazine (Vraylar) 1.5 mg PO DAILY cetirizine 10 mg PO DAILY cyanocobalamin (vitamin B-12) ER 1,000 mcg PO DAILY diclofenac sodium 1% (Voltaren Arthritis Pain) 2 grams topical TID PRN doxycycline monohydrate 100 mg PO BID duloxetine 60 mg PO DAILY duloxetine 30 mg PO DAILY estradiol cypionate (Depo-Estradiol) mg IM ibuprofen 600 mg PO Q6H PRN melatonin 5 mg PO .hs melatonin 5 mg PO BEDTIME methylphenidate HCl ER 36 mg PO QAM multivitamin 1 tab PO DAILY naloxone 4 mg/actuation (Narcan) 4 mg intranasal Q2M PRN oxybutynin chloride ER 10 mg PO DAILY oxycodone-acetaminophen 5-325 mg (Percocet) 1 tab PO TID PRN 30 days polyethylene glycol 3350 17 grams PO DAILY PRN testosterone 0 mg topical testosterone 0 mg topical HPI HPI Comments History of Present Illness Details Patient presents today for a pill count. Patient is supposed to have #66 pills and presents with #72. This demonstrates a responsible attitude in regards to medication regimen. Patient reports adequate analgesia on current regimen with no noted side effects. Denies any fever, chills, weight loss, weakness, abdominal pain, sedation, nausea or dizziness. Patient reports elevated levels of pain due to holding their medication for recent blood work to check hormone levels. Patient reports her Estradiol injections dose has been recently adjusted at [facility] where she saw her PCP. 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 Surgical History Person who has undergone gender reassignment surgery Social History Alcohol intake: current Alcohol intake frequency: holidays/special occasions only Alcohol type: wine Patient Tobacco Use Status: Former Tobacco user Substance Use Type: Marijuana Current occupational status: disabled Current occupation: rt hand Review of Systems Const All systems reviewed & are unremarkable except as noted in HPI and below Physical Exam Vital Signs: Last Vital Signs Pulse 83 05/11/23 13:05 BP 122/70 05/11/23 13:05 Pulse Ox 98 05/11/23 13:05 Oxygen Delivery Method Room Air 05/11/23 13:05 BMI result Body Mass Index 30.2 General: Appears afebrile. Alert and oriented. Mood and affect appropriate. Follows and participates in conversation appropriately. Respiratory effort is unlabored. Able to transition from sit to stand unassisted. Ambulates with bilaterally normal heel strike and toe off. Extrem General: Yes capillary refill normal, Yes no clubbing, cyanosis or edema and Yes no calf tenderness Psych Appearance: grossly normal and well kempt Mental Status: mental status grossly normal Speech and movement: Normal speech and movement present Affect: normal affect Attitude: cooperative Thought process: Normal thought process present Thought content: Normal thought content present, suicidality (none), no hallucinations and No Depressive thoughts present Insight: Good insight present (Psych) Judgement: Good judgement present (Psych) Assessment & Plan Assessment & Plan (1) Chronic, continuous use of opioids: Code(s): F11.90 - Opioid use, unspecified, uncomplicated (2) Chronic pain syndrome: Code(s): G89.4 - Chronic pain syndrome (3) Bilateral sacroiliitis: Code(s): M46.1 - Sacroiliitis, not elsewhere classified (4) Spondylolysis, lumbar region: Code(s): M43.06 - Spondylolysis, lumbar region (5) Spondylosis of lumbar region without myelopathy or radiculopathy: Code(s): M47.816 - Spondylosis without myelopathy or radiculopathy, lumbar region (6) Polyarthralgia: Code(s): M25.50 - Pain in unspecified joint Plan Patient has shown accountability for her medication regimen and the pill count was accurate. The patient reports no noted side effects other than occasional constipation relieved with Miralax prn. There is no evidence of misuse, abuse or diversion at this time. [employer]. Will send in prescription for Percocet 5-325 mg TID for 30 days with an advanced date of 06/03/23. All questions were answered and patient is in agreement of plan. Follow up in one month for a pill count and sooner if needed. Medications: Refilled oxycodone-acetaminophen 5-325 mg (Percocet) 1 tab PO TID PRN 90 tabs 0RF severe pain (scale score 7-10) 30 days G89.4 - Chronic pain syndrome, M43.06 - Spondylolysis, lumbar region, M46.1 - Sacroiliitis, not elsewhere classified Coding Level of Care Code Est Pt Level 4 (57736) Diagnoses Chronic, continuous use of opioids F11.90 Chronic pain syndrome G89.4 Bilateral sacroiliitis M46.1 Spondylolysis, lumbar region M43.06 Spondylosis of lumbar region without myelopathy or radiculopathy M47.816 Polyarthralgia M25.50
[2023-05-11 13:05] VITALS: BP 122/70; PULSE 83; O2SAT 98; BMI 30.2
== END 2023-05-11 13:18 | disposition home or self-care (01) ==
PROVIDERS: PCP Family Medicine; Visit Provider Nurse Practitioner Family
DX: G89.4 Chronic pain syndrome (principal); M46.1 Sacroiliitis, not elsewhere classified; Z79.891 Long term (current) use of opiate analgesic; M43.06 Spondylolysis, lumbar region; M47.816 Spondylosis without myelopathy or radiculopathy, lumbar region; M25.50 Pain in unspecified joint
CPT/HCPCS: 99214

== ENCOUNTER → 2023-05-11 12:53 | Outpatient (BNVA) | payer OTHER, SELFPAY | PROVIDERS: PCP Family Medicine; Visit Provider Nurse Practitioner Family | DX: Z51.81 Encounter for therapeutic drug level monitoring (principal); F11.20 Opioid dependence, uncomplicated; M46.1 Sacroiliitis, not elsewhere classified; M43.06 Spondylolysis, lumbar region; M47.816 Spondylosis without myelopathy or radiculopathy, lumbar region; M25.50 Pain in unspecified joint; G89.4 Chronic pain syndrome | CPT/HCPCS: 99212 ==

== ENCOUNTER 2023-05-21 14:42 | Outpatient (REF) | payer OTHER, SELFPAY ==
--- NOTE | ~2023-05-21 | MM_ITS ---
EXAMINATION: MM SCREENING DIGITAL BREAST TOMOSYNTHESIS, BILATERAL CLINICAL INFORMATION: Screening. Asymptomatic. COMPARISON: Mammography: This is a baseline study. TECHNIQUE: Digital mammography is performed in craniocaudal and mediolateral oblique views along with computer-aided detection (CAD). Digital breast tomosynthesis is performed in implant-displaced craniocaudal and implant-displaced mediolateral oblique views along with computer-aided detection (CAD). Synthesized 2D images are generated from the tomosynthesis. FINDINGS: The breasts are heterogeneously dense, which may obscure small masses (ACR BI-RADS breast composition Category c). There are mammographically intact, retropectoral silicone breast implants. There are no significant masses, abnormal calcifications, or other abnormalities. MM/MM tomosynthesis screen imp BI IMPRESSION: There are no significant changes from prior study. ASSESSMENT: BI-RADS BI-RADS 1 - Negative RECOMMENDATION: Routine annual mammography screening. 1 year F/U This patient's information was entered into a reminder system with a target due date for their next mammogram.
== END 2023-05-21 14:43 | disposition home or self-care (01) ==
LOC: HO.MAMMO 14:42
PROVIDERS: PCP Family Medicine; Visit Provider Family Medicine
DX: Z12.31 Encounter for screening mammogram for malignant neoplasm of breast (principal)
CPT/HCPCS: 77063; 77067

== ENCOUNTER → 2023-05-21 15:00 | Outpatient (BNV) | payer OTHER, SELFPAY | PROVIDERS: PCP Family Medicine; Visit Provider Radiology Diagnostic Radiology | DX: Z12.31 Encounter for screening mammogram for malignant neoplasm of breast (principal) | CPT/HCPCS: 77063; 77067 ==

== ENCOUNTER 2023-06-08 13:07 | Outpatient (AMB) | payer OTHER, SELFPAY ==
--- NOTE | 2023-06-08 13:08 | A.OFFVIS_ITS ---
Intake Vital Signs 06/08/23 13:27 Height 5 ft 6 in Weight 188 lb 4 oz BMI 30.4 BP 134/97 H Blood Pressure Location Rt brachial Position Sitting Pulse 68 Pulse Source Pulse Oximeter Pulse Oximetry (%) 97 Oxygen Delivery Method Room Air Intake Visit Reasons: PILL COUNT Intake Note: Cherri comes in today for a pill count to oxycodone-acetaminophen, patient should have 72 tablets and presents with 78 which she last took this morning 06/08/23 at 1:00am. Pain today9/10. Pmo Lead Required: No Accompanied by: Self / Same As Patient Allergies No Known Allergies Allergy (Verified 06/08/23 13:27) HPI HPI Comments History of Present Illness Details Patient presents today for a pill count. Patient is supposed to have #72 pills and presents with #78. This demonstrates a responsible attitude in regards to medication regimen. Patient reports adequate analgesia on current regimen with no noted side effects. Denies any fever, chills, weight loss, weakness, abdominal pain, sedation, constipation, nausea or dizziness. Patient reports increased levels of pain due to left foot pain and right lateral hip pain. Patient is hesitant towards interventional treatments at this time. 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 Surgical History Person who has undergone gender reassignment surgery Social History Alcohol intake: current Alcohol intake frequency: holidays/special occasions only Alcohol type: wine Patient Tobacco Use Status: Former Tobacco user Substance Use Type: Marijuana Current occupational status: disabled Current occupation: rt hand Review of Systems Const All systems reviewed & are unremarkable except as noted in HPI and below Physical Exam Vital Signs: Last Vital Signs Pulse 68 06/08/23 13:27 BP 134/97 H 06/08/23 13:27 Pulse Ox 97 06/08/23 13:27 Oxygen Delivery Method Room Air 06/08/23 13:27 BMI result Body Mass Index 30.4 General: Appears afebrile. Alert and oriented. Mood and affect appropriate. Follows and participates in conversation appropriately. Respiratory effort is unlabored. Able to transition from sit to stand unassisted. Utilizes walker with a mbulation. Ambulates with bilaterally normal heel strike and toe off. Extrem General: Yes capillary refill normal, Yes no clubbing, cyanosis or edema and Yes no calf tenderness Right lower extremity: hip/thigh Details: normal to inspection, tenderness Location: of the hip Location: laterally and normal ROM; no swelling, no crepitus and no unusual warmth Left lower extremity: foot Details: normal capillary refill, normal to inspection and toes with normal ROM; no unusual warmth and no ecchymosis Psych Appearance: grossly normal and well kempt Mental Status: mental status grossly normal Speech and movement: Normal speech and movement present Affect: normal affect Attitude: cooperative Thought process: Normal thought process present Thought content: Normal thought content present, suicidality (none), no hallucinations and No Depressive thoughts present Insight: Good insight present (Psych) Judgement: Good judgement present (Psych) Assessment & Plan Assessment & Plan (1) Chronic, continuous use of opioids: Code(s): F11.90 - Opioid use, unspecified, uncomplicated (2) Chronic pain syndrome: Code(s): G89.4 - Chronic pain syndrome (3) Bilateral sacroiliitis: Code(s): M46.1 - Sacroiliitis, not elsewhere classified (4) Spondylolysis, lumbar region: Code(s): M43.06 - Spondylolysis, lumbar region (5) Spondylosis of lumbar region without myelopathy or radiculopathy: Code(s): M47.816 - Spondylosis without myelopathy or radiculopathy, lumbar region (6) Polyarthralgia: Code(s): M25.50 - Pain in unspecified joint Plan Patient has shown accountability for her medication regimen and the pill count was accurate. The patient reports no noted side effects other than occasional constipation relieved with Miralax prn. There is no evidence of misuse, abuse or diversion at this time. [employer] reviewed. Will send in prescription for Percocet 5-325 mg TID for 30 days with an advanced date of 07/04/23. Refill sent for diclofenac gel per patient's request as well. Patient declined interventional treatments for her pain generators at this time as injections have been minimally effective in the past per patient. All questions were answered and patient is in agreement of plan. Follow up in 4 weeks for a pill count and sooner if needed. Medications: Refilled diclofenac sodium 1% (Voltaren Arthritis Pain) apply to single elbow, wrist or hand; for hand includes palm/fingers/back of hand 2 grams topical TID PRN 100 grams 3RF Pain, Moderate G89.4 - Chronic pain syndrome, M25.50 - Pain in unspecified joint, M43.06 - Spondylolysis, lumbar region, M46.1 - Sacroiliitis, not elsewhere classified oxycodone-acetaminophen 5-325 mg (Percocet) 1 tab PO TID 30 days PRN 90 tabs 0RF severe pain (scale score 7-10) G89.4 - Chronic pain syndrome, M43.06 - Spondylolysis, lumbar region, M46.1 - Sacroiliitis, not elsewhere classified Coding Level of Care Code Est Pt Level 4 (27265) Diagnoses Chronic, continuous use of opioids F11.90 Chronic pain syndrome G89.4 Bilateral sacroiliitis M46.1 Spondylolysis, lumbar region M43.06 Spondylosis of lumbar region without myelopathy or radiculopathy M47.816 Polyarthralgia M25.50
[2023-06-08 13:27] VITALS: BP 134/97; PULSE 68; O2SAT 97; BMI 30.4
== END 2023-06-08 13:37 | disposition home or self-care (01) ==
PROVIDERS: PCP Family Medicine; Visit Provider Nurse Practitioner Family
DX: G89.4 Chronic pain syndrome (principal); Z79.891 Long term (current) use of opiate analgesic; M46.1 Sacroiliitis, not elsewhere classified; M43.06 Spondylolysis, lumbar region; M47.816 Spondylosis without myelopathy or radiculopathy, lumbar region; M25.50 Pain in unspecified joint
CPT/HCPCS: 99214

== ENCOUNTER → 2023-06-08 13:07 | Outpatient (BNVA) | payer OTHER, SELFPAY | PROVIDERS: PCP Family Medicine; Visit Provider Nurse Practitioner Family | DX: M47.816 Spondylosis without myelopathy or radiculopathy, lumbar region (principal); M46.1 Sacroiliitis, not elsewhere classified; M25.50 Pain in unspecified joint; G89.4 Chronic pain syndrome; Z79.891 Long term (current) use of opiate analgesic | CPT/HCPCS: 99212 ==

== ENCOUNTER 2023-06-24 16:23 | Outpatient (REF) | payer OTHER, SELFPAY ==
[2023-06-24 17:32] LABS: MANUAL DIFF FLAG NO
[2023-06-24 17:42] LABS: Basophils Percent Auto 0.4 % (0-2); Eosinophils Absolute Auto 0.1 X10*3/uL (0.0-0.4); Eosinophils Percent Auto 0.8 % (0-4); Hematocrit 44.2 % (37.0-47.0); Hemoglobin 15.5 g/dl (12.0-16.0); Imm Gran Abs Auto 0.02 X10*3/uL (0.00-0.03); Imm Gran Pct Auto 0.3 % (0.0-0.4); Lymphocytes Absolute Auto 2.2 X10*3/uL (1.2-4.9); Lymphocytes Percent Auto 30.6 % (20-40); Mean Corpuscular HGB Conc 35.1 g/dl (31.0-35.0); Mean Corpuscular Hemoglobin 30.9 pg (27.0-33.0); Mean Platelet Volume 8.9 fL (9.4-12.3); Monocytes Absolute Auto 0.7 X10*3/uL (0.1-1.2); Neutrophils Absolute Auto 4.3 x10*3/uL (2.0-8.3); Neutrophils Percent Auto 58.9 % (45-73); Platelet Count 389 X10*3/uL (160-400); Red Blood Count 5.02 X10*6/uL (4.20-5.50); White Blood Count 7.3 X10*3/uL (4.8-10.8)
[2023-06-24 18:52] LABS: Alanine Aminotransferase 14 U/L (0-31); Albumin Level 4.5 g/dL (3.5-5.0); Alkaline Phosphatase 86 U/L (39-117); Anion Gap 14 (12-20); Aspartate Amino Transferase 17 U/L (5-31); Bilirubin Total 1.6 mg/dL (0.0-1.0); Blood Urea Nitrogen 11 mg/dL (9-16); Calcium 9.5 mg/dL (8.4-10.2); Carbon Dioxide 23 mmol/L (22-29); Chloride 108 mmol/L (96-108); Estimated Glomerular Filt Rate > 60; Glucose Random 98 mg/dL (60-115); Iron 151 mcg/dL (30-160); Percent Iron Saturation 47 % (15-50); Potassium 3.9 mmol/L (3.3-5.1); Sodium 141 mmol/L (135-145); Total Iron Binding Capacity 321 mcg/dL (228-428); Total Protein 7.3 g/dL (6.5-8.0); Unsaturated Iron Binding 170 ug/dL
[2023-06-24 19:09] LABS: Ferritin 181 ng/mL (10-250)
== END 2023-06-24 16:24 | disposition home or self-care (01) ==
LOC: HO.HHCL 16:23
PROVIDERS: Visit Provider Registered Nurse
DX: R53.83 Other fatigue (principal)
CPT/HCPCS: 36415; 80053; 82728; 83540; 85025

== ENCOUNTER 2023-07-06 14:19 | Outpatient (AMB) | payer OTHER, SELFPAY ==
--- NOTE | 2023-07-06 14:20 | A.OFFVIS_ITS ---
Intake Vital Signs 07/06/23 14:21 Height 5 ft 6 in BP 147/96 H Blood Pressure Location Lt brachial Position Sitting Pulse 122 H Pulse Source Pulse Oximeter Pulse Oximetry (%) 96 Oxygen Delivery Method Room Air Intake Visit Reasons: pill count Intake Note: Cherri comes in today for a pill count to oxycodone-acetaminophen, patient should have 81 tablets and presents with 87 tablets. Opioid contract was resigned today in office. Physician Assistant Surgery Required: No Accompanied by: Self / Same As Patient Allergies No Known Allergies Allergy (Verified 06/08/23 13:27) HPI HPI Comments History of Present Illness Details Patient presents today for a pill count. Patient has missed her scheduled appointment at 13:00 today. Patient arrived to our office closer to 14:00, tearful and apologetic for her missed time. Emotional support was provided. Patient reports her grandmother 4 days ago and she has been emotionally drained. Patient confirmed today's pill count visit last week as well as reached out to our office last 2 weeks multiple times to confirm date and time for today's appointment. Patient reports being overwhelmed with multiple medical appointments and has tried to utilize her phone calendar setting for reminders. She is undergoing counseling tomorrow. We have reviewed Opioid Program contract again today and in the presence of 2 witnesses, patient was told that future noncompliance with scheduled pill count visits as outlined in our Opioid Program contract will result in indefinite suspension from the Opioid Program. Patient is supposed to have #81 pills and presents with #87. Patient reports adequate analgesia on current regimen with no noted side effects. Denies any fever, chills, weight loss, weakness, abdominal pain, sedation, constipation, nausea or dizziness. 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 Arthritis Surgical History Person who has undergone gender reassignment surgery Social History Alcohol intake: current Alcohol intake frequency: holidays/special occasions only Alcohol type: wine Patient Tobacco Use Status: Former Tobacco user Substance Use Type: Marijuana Current occupational status: disabled Current occupation: rt hand Review of Systems Const All systems reviewed & are unremarkable except as noted in HPI and below Physical Exam Vital Signs: Last Vital Signs Pulse 122 H 07/06/23 14:21 BP 147/96 H 07/06/23 14:21 Pulse Ox 96 07/06/23 14:21 Oxygen Delivery Method Room Air 07/06/23 14:21 General: Appears afebrile. Alert and oriented. Mood and affect appropriate. Follows and participates in conversation appropriately. Respiratory effort is unlabored. Able to transition from sit to stand unassisted. Utilizes cane with ambulation. Ambulates with bilaterally normal heel strike and toe off. Psych Appearance: grossly normal Mental Status: mental status grossly normal Speech and movement: Normal speech and movement present Affect: normal affect Attitude: cooperative Thought process: Normal thought process present Thought content: Normal thought content present, suicidality (none), no hallucinations and No Depressive thoughts present Insight: Good insight present (Psych) Judgement: Good judgement present (Psych) Assessment & Plan Assessment & Plan (1) Chronic, continuous use of opioids: Code(s): F11.90 - Opioid use, unspecified, uncomplicated (2) Chronic pain syndrome: Code(s): G89.4 - Chronic pain syndrome (3) Bilateral sacroiliitis: Code(s): M46.1 - Sacroiliitis, not elsewhere classified (4) Spondylosis of lumbar region without myelopathy or radiculopathy: Code(s): M47.816 - Spondylosis without myelopathy or radiculopathy, lumbar region (5) Polyarthralgia: Code(s): M25.50 - Pain in unspecified joint Plan Patient's pill count was accurate however patient was incompliant with keeping her scheduled pill count visit and has not notified our office of changes this morning. Patient confirmed today's visit last week as well as reached out to our office in the past 2 weeks to check for her scheduled date and time. Opioid contract was reviewed with patient again today and signed. Patient was made aware in the presence of 2 witnesses that future noncompliance with scheduled pi ll count visits and patient's compliance as outlined in our Opioid Program contract will result in indefinite suspension from our Opioid Program. [employer] was reviewed. There is no evidence of misuse, abuse or diversion at this time. Will send in prescription for Percocet 5-325 mg TID for 30 days with an advanced date of 08/03/23. All questions were answered and patient is in agreement of plan. Follow up in 4 weeks for a pill count and sooner if needed. Medications: Refilled oxycodone-acetaminophen 5-325 mg (Percocet) 1 tab PO TID 30 days PRN 90 tabs 0RF severe pain (scale score 7-10) G89.4 - Chronic pain syndrome, M43.06 - Spondylolysis, lumbar region, M46.1 - Sacroiliitis, not elsewhere classified Coding Level of Care Code Est Pt Level 4 (67247) Diagnoses Chronic, continuous use of opioids F11.90 Chronic pain syndrome G89.4 Bilateral sacroiliitis M46.1 Spondylosis of lumbar region without myelopathy or radiculopathy M47.816 Polyarthralgia M25.50
[2023-07-06 14:21] VITALS: BP 147/96; PULSE 122; O2SAT 96
== END 2023-07-06 14:22 | disposition home or self-care (01) ==
LOC: HO.PMC 14:19
PROVIDERS: PCP Family Medicine; Visit Provider Nurse Practitioner Family
DX: G89.4 Chronic pain syndrome (principal); M46.1 Sacroiliitis, not elsewhere classified; M47.816 Spondylosis without myelopathy or radiculopathy, lumbar region; Z79.891 Long term (current) use of opiate analgesic; M25.50 Pain in unspecified joint
CPT/HCPCS: 99214

== ENCOUNTER → 2023-07-06 14:19 | Outpatient (BNVA) | payer OTHER, SELFPAY | PROVIDERS: PCP Family Medicine; Visit Provider Nurse Practitioner Family | DX: Z51.81 Encounter for therapeutic drug level monitoring (principal); F11.20 Opioid dependence, uncomplicated; M46.1 Sacroiliitis, not elsewhere classified; M47.816 Spondylosis without myelopathy or radiculopathy, lumbar region; M25.50 Pain in unspecified joint; G89.4 Chronic pain syndrome | CPT/HCPCS: 99212 ==

== ENCOUNTER 2023-08-03 08:57 | Outpatient (AMB) | payer OTHER, SELFPAY ==
--- NOTE | 2023-08-03 08:59 | A.OFFVIS_ITS ---
Intake Vital Signs 08/03/23 09:14 Height 5 ft 6 in Weight 178 lb 6 oz BMI 28.8 BP 141/70 H Blood Pressure Location Lt brachial Position Sitting Pulse 71 Pulse Source Pulse Oximeter Pulse Oximetry (%) 97 Oxygen Delivery Method Room Air Intake Visit Reasons: PILL COUNT Intake Note: Cherri comes in today for a pill count to oxycodone-acetaminophen, patient should have o tablets and presents with 2 tablets which she last took today 08/03/23 at 7 am. Pain today 03/28. Early Morning Required: No Accompanied by: Self / Same As Patient Allergies No Known Allergies Allergy (Verified 08/03/23 09:00) HPI HPI Comments History of Present Illness Details Patient presents today for a pill count. Patient is supposed to have #0 pills and presents with #2. This demonstrates a responsible attitude in regards to medication regimen. She has been loosing weight with Intermittent fasting and has lost 10 lbs since last visit. Patient reports low back pain and right leg pain has been improving since loosing weight. Patient reports adequate analgesia on current regimen with no noted side effects. Denies any fever, chills, unintentional weight loss, weakness, abdominal pain, sedation, constipation, nausea or dizziness. 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 Alert and oriented. Mood and affect appropriate. Follows and participates in conversation appropriately. Respiratory effort is unlabored. No cough. Able to transition from sit to stand unassisted. Uses walker with walking. Ambulates with bilaterally normal heel strike and toe off. Psych Appearance: grossly normal Mental Status: mental status grossly normal Speech and movement: Normal speech and movement present Affect: normal affect Attitude: cooperative Thought process: Normal thought process present Thought content: Normal thought content present, suicidality (none), no hallucinations and No Depressive thoughts present Insight: Good insight present (Psych) Judgement: Good judgement present (Psych) Assessment & Plan Assessment & Plan (1) Chronic, continuous use of opioids: Code(s): F11.90 - Opioid use, unspecified, uncomplicated (2) Chronic pain syndrome: Code(s): G89.4 - Chronic pain syndrome (3) Bilateral sacroiliitis: Code(s): M46.1 - Sacroiliitis, not elsewhere classified (4) Polyarthralgia: Code(s): M25.50 - Pain in unspecified joint (5) Spondylolysis, lumbar region: Code(s): M43.06 - Spondylolysis, lumbar region Plan Patient has shown accountability for medication regimen and the pill count was accurate. The patient reports no noted side effects other than occasional constipation relieved with Miralax prn. There is no evidence of misuse, abuse or diversion at this time. [employer] reviewed. Prescription for Percocet 5-325 mg TID for 30 days sent today as patient has not refilled her medication. All questions were answered and patient is in agreement of plan. Follow up in 4 weeks for a pill count and sooner if needed. Medications: Refilled oxycodone-acetaminophen 5-325 mg (Percocet) 1 tab PO TID 30 days PRN 90 tabs 0RF severe pain (scale score 7-10) G89.4 - Chronic pain syndrome, M43.06 - Spondylolysis, lumbar region, M46.1 - Sacroiliitis, not elsewhere classified Coding Level of Care Code Est Pt Level 4 (89297) Diagnoses Chronic, continuous use of opioids F11.90 Chronic pain syndrome G89.4 Bilateral sacroiliitis M46.1 Polyarthralgia M25.50 Spondylolysis, lumbar region M43.06
[2023-08-03 09:14] VITALS: BP 141/70; PULSE 71; O2SAT 97; BMI 28.8
== END 2023-08-03 09:31 | disposition home or self-care (01) ==
PROVIDERS: PCP Family Medicine; Visit Provider Nurse Practitioner Family
DX: G89.4 Chronic pain syndrome (principal); M46.1 Sacroiliitis, not elsewhere classified; M25.50 Pain in unspecified joint; Z79.891 Long term (current) use of opiate analgesic; M43.06 Spondylolysis, lumbar region
CPT/HCPCS: 99214

== ENCOUNTER → 2023-08-03 08:57 | Outpatient (BNVA) | payer OTHER, SELFPAY | PROVIDERS: PCP Family Medicine; Visit Provider Nurse Practitioner Family | DX: Z51.81 Encounter for therapeutic drug level monitoring (principal); F11.20 Opioid dependence, uncomplicated; M46.1 Sacroiliitis, not elsewhere classified; M25.50 Pain in unspecified joint; M43.06 Spondylolysis, lumbar region; G89.4 Chronic pain syndrome | CPT/HCPCS: 99212 ==

== ENCOUNTER 2023-08-12 15:43 | Outpatient (REF) | payer OTHER, SELFPAY ==
[2023-08-12 17:20] LABS: MANUAL DIFF FLAG NO
[2023-08-12 17:39] LABS: Basophils Percent Auto 0.3 % (0-2); Eosinophils Percent Auto 0.6 % (0-4); Hemoglobin 15.1 g/dl (12.0-16.0); Imm Gran Abs Auto 0.02 X10*3/uL (0.00-0.03); Imm Gran Pct Auto 0.3 % (0.0-0.4); Lymphocytes Percent Auto 29.3 % (20-40); Mean Corpuscular HGB Conc 35.1 g/dl (31.0-35.0); Mean Corpuscular Hemoglobin 31.6 pg (27.0-33.0); Mean Platelet Volume 9.1 fL (9.4-12.3); Monocytes Absolute Auto 0.5 X10*3/uL (0.1-1.2); Monocytes Percent Auto 7.2 % (2-11); Neutrophils Absolute Auto 4.2 x10*3/uL (2.0-8.3); Neutrophils Percent Auto 62.3 % (45-73); Platelet Count 353 X10*3/uL (160-400); Red Blood Count 4.78 X10*6/uL (4.20-5.50); Red Cell Distribution Width 11.8 % (11.0-16.0); White Blood Count 6.8 X10*3/uL (4.8-10.8)
[2023-08-12 17:43] LABS: Alanine Aminotransferase 10 U/L (0-31); Albumin Level 4.5 g/dL (3.5-5.0); Alkaline Phosphatase 71 U/L (39-117); Anion Gap 12 (12-20); Aspartate Amino Transferase 16 U/L (5-31); Bilirubin Direct 0.4 mg/dL (0.0-0.5); Bilirubin Total 1.2 mg/dL (0.0-1.0); Blood Urea Nitrogen 7 mg/dL (9-16); Calcium 9.5 mg/dL (8.4-10.2); Carbon Dioxide 23 mmol/L (22-29); Chloride 106 mmol/L (96-108); Estimated Glomerular Filt Rate > 60; Glucose Random 95 mg/dL (60-115); Lipase 12 U/L (8-78); Sodium 137 mmol/L (135-145); Total Protein 7.2 g/dL (6.5-8.0)
[2023-08-12 18:00] LABS: TSH reflex Free T4 1.19 uIU/mL (0.32-4.0)
[2023-08-13 04:17] LABS: HIV AB/AG Nonreactive (Nonreactive); HIV Num 1 0.03 S/CO (0.00-0.99); ~HepC Num1 0.26 S/CO (0.00-0.79); ~Hepatitis C Antibody Nonreactive (Nonreactive)
[2023-08-13 04:56] LABS: CT PCR NOT DETECTED (Not Detect.); NG PCR NOT DETECTED (Not Detect.)
[2023-08-14 08:14] LABS: RPR Rapid Plasma Reagin NON-REACTIVE (NON-REACTIVE)
[2023-08-14 12:58] LABS: Transglutaminase Ab IgG <1.0 U/mL; Transglutaminase IgA <1.0 U/mL
[2023-08-14 16:29] LABS: Immunoglobulin A 123 mg/dL (47-310)
[2023-08-16 14:28] LABS: Endomysial IgA Antibody Negative (Negative)
== END 2023-08-12 15:44 | disposition home or self-care (01) ==
LOC: HO.HHCL 15:43
PROVIDERS: Visit Provider Family Medicine
DX: Z11.4 Encounter for screening for human immunodeficiency virus [HIV] (principal); R63.4 Abnormal weight loss; Z20.2 Contact with and (suspected) exposure to infections with a predominantly sexual mode of transmission
CPT/HCPCS: 0353U; 80048; 80076; 82784; 83690; 84443; 85025; 86231; 86364; 86592; 86803; 87389

== ENCOUNTER 2023-09-03 08:46 | Outpatient (AMB) | payer OTHER, SELFPAY ==
--- NOTE | 2023-09-03 09:05 | MHC.OFFVIS ---
Intake Vital Signs 09/03/23 09:07 Height 5 ft 6 in Weight 169 lb BMI 27.3 BP 124/82 Blood Pressure Location Rt brachial Position Sitting Pulse 103 H Pulse Source Pulse Oximeter Pulse Oximetry (%) 97 Oxygen Delivery Method Room Air Intake Visit Reasons: Medication Count/random uds Intake Note: Cherri comes in today for a pill count to oxycodone-acetaminophen, patient should have 0 tablets and presents with 7 tablets which she last took last night 09/02/23 at 11:39pm. Pain today 04/27 Patient will also have a random UDS done today, aware that she will need to go to the lab on the first floor of this building today 09/03/23 before 12pm. Mandarin Speaking Nanny Required: No Accompanied by: Self / Same As Patient Allergies No Known Allergies Allergy (Verified 09/03/23 09:17) HPI HPI Comments History of Present Illness Details Patient presents today for a pill count. Patient is supposed to have #0 pills and presents with #7. This demonstrates a responsible attitude in regards to medication regimen. Patient reports adequate analgesia on current regimen with no noted side effects. Denies any fever, chills, unintentional weight loss, weakness, abdominal pain, sedation, constipation, nausea or dizziness. Patient reports she had flu like symptoms last month and was evaluated at [facility] and was negative for strep throat and other viral illness. Patient reports she feels better, able to tolerate PO intake without difficulty and has residual cough with intermittent production mucus secretions. 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 Arthritis Surgical History Person who has undergone gender reassignment surgery Social History Alcohol intake: current Alcohol intake frequency: holidays/special occasions only Alcohol type: wine Patient Tobacco Use Status: Former Tobacco user Substance Use Type: Marijuana Current occupational status: disabled Current occupation: rt hand Review of Systems Const All systems reviewed & are unremarkable except as noted in HPI and below Physical Exam Vital Signs: Last Vital Signs Pulse 103 H 09/03/23 09:07 BP 124/82 09/03/23 09:07 Pulse Ox 97 09/03/23 09:07 Oxygen Delivery Method Room Air 09/03/23 09:07 BMI result Body Mass Index 27.3 General: Appears afebrile. Alert and oriented. Mood and affect appropriate. Follows and participates in conversation appropriately. Respiratory effort is unlabored. No cough. Able to transition from sit to stand unassisted. Uses walker with walking. Ambulates with bilaterally normal heel strike and toe off. Resp Effort & Inspection: normal respiratory effort, able to speak in complete sentences, no audible wheezes, no cough, no respiratory distress and symmetric chest movement Psych Appearance: grossly normal Mental Status: mental status grossly normal Speech and movement: Normal speech and movement present Affect: normal affect Attitude: cooperative Thought process: Normal thought process present Thought content: Normal thought content present, suicidality (none), no hallucinations and No Depressive thoughts present Insight: Good insight present (Psych) Judgement: Good judgement present (Psych) Assessment & Plan Assessment & Plan (1) Chronic, continuous use of opioids: Code(s): F11.90 - Opioid use, unspecified, uncomplicated (2) Chronic pain syndrome: Code(s): G89.4 - Chronic pain syndrome (3) Bilateral sacroiliitis: Code(s): M46.1 - Sacroiliitis, not elsewhere classified (4) Spondylolysis, lumbar region: Code(s): M43.06 - Spondylolysis, lumbar region Plan Patient has shown accountability for medication regimen and the pill count was accurate. The patient reports no noted side effects. There is no evidence of misuse, abuse or diversion at this time. MassPAT reviewed. Prescription for Percocet 5-325 mg TID for 30 days sent today. Patient will continue to monitor her cough symptoms and follow up with her PCP for any worsening of symptoms, fever or new symptoms. All questions were answered and patient is in agreement of plan. Follow up in 4-5 weeks for a pill count/UDS review and sooner if needed. Medications: Refilled oxycodone-acetaminophen 5-325 mg (Percocet) 1 tab PO TID PRN 90 tabs 0RF severe pain (scale score 7-10) 30 days G89.4 - Chronic pain syndrome, M43.06 - Spondylolysis, lumbar region, M46.1 - Sacroiliitis, not elsewhere classified Coding Level of Care Code Est Pt Level 4 (30482) Diagnoses Chronic, continuous use of opioids F11.90 Chronic pain syndrome G89.4 Bilateral sacroiliitis M46.1 Spondylolysis, lumbar region M43.06
[2023-09-03 09:07] VITALS: BP 124/82; PULSE 103; O2SAT 97; BMI 27.3
== END 2023-09-03 09:14 | disposition home or self-care (01) ==
PROVIDERS: PCP Family Medicine; Visit Provider Nurse Practitioner Family
DX: G89.4 Chronic pain syndrome (principal); M46.1 Sacroiliitis, not elsewhere classified; M43.06 Spondylolysis, lumbar region; Z79.891 Long term (current) use of opiate analgesic
CPT/HCPCS: 99214

== ENCOUNTER → 2023-09-03 08:46 | Outpatient (BNVA) | payer OTHER, SELFPAY | PROVIDERS: PCP Family Medicine; Visit Provider Nurse Practitioner Family | DX: Z51.81 Encounter for therapeutic drug level monitoring (principal); F11.20 Opioid dependence, uncomplicated; M46.1 Sacroiliitis, not elsewhere classified; M43.06 Spondylolysis, lumbar region; G89.4 Chronic pain syndrome | CPT/HCPCS: 99212 ==

== ENCOUNTER 2023-10-01 12:39 | Outpatient (AMB) | payer OTHER, SELFPAY ==
--- NOTE | 2023-10-01 12:52 | MHC.OFFVIS ---
Intake Vital Signs 10/01/23 13:02 Height 5 ft 6 in Weight 164 lb 2 oz BMI 26.5 BP 111/66 Blood Pressure Location Rt brachial Position Sitting Pulse 71 Pulse Source Pulse Oximeter Pulse Oximetry (%) 97 Oxygen Delivery Method Room Air Intake Visit Reasons: Medication Count/confirmed Intake Note: Cherri comes in today for a pill count to oxycodone-acetaminophen, patient should have 6 tablets and presents with 13 tablets which she last took last night 09/30/23 at 10:24pm. Pain today 05/28. Youth Ministry Director Required: No Accompanied by: Self / Same As Patient Allergies No Known Allergies Allergy (Verified 10/01/23 13:04) HPI HPI Comments History of Present Illness Details Patient presents today for a pill count. Patient is supposed to have #6 pills and presents with #13. This demonstrates a responsible attitude in regards to medication regimen. Patient reports adequate analgesia on current regimen with no noted side effects. Denies any fever, chills, unintentional weight loss, weakness, abdominal pain, sedation, constipation, nausea or dizziness. Patient continues to loose weight with portion control and exercise. She sees Mental therapist on weekly basis in person and Zoom meetings and states this has been helpful especially to work through her PTSD recovery. Patient reports current opioid medication does not relieve all of their pain but allows patient to be less symptomatic and more functional. 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 Arthritis Surgical History Person who has undergone gender reassignment surgery Social History Alcohol intake: current Alcohol intake frequency: holidays/special occasions only Alcohol type: wine Patient Tobacco Use Status: Former Tobacco user Substance Use Type: Marijuana Current occupational status: disabled Current occupation: rt hand Review of Systems Const All systems reviewed & are unremarkable except as noted in HPI and below Physical Exam Vital Signs: Last Vital Signs Pulse 71 10/01/23 13:02 BP 111/66 10/01/23 13:02 Pulse Ox 97 10/01/23 13:02 Oxygen Delivery Method Room Air 10/01/23 13:02 BMI result Body Mass Index 26.5 General: Appears afebrile. Alert and oriented. Mood and affect appropriate. Follows and participates in conversation appropriately. Respiratory effort is unlabored. No cough. Able to transition from sit to stand unassisted. Uses walker with walking. Ambulates with bilaterally normal heel strike and toe off. Psych Appearance: grossly normal Mental Status: mental status grossly normal Speech and movement: Normal speech and movement present Affect: normal affect Attitude: cooperative Thought process: Normal thought process present Thought content: Normal thought content present, suicidality (none), no hallucinations and No Depressive thoughts present Insight: Good insight present (Psych) Judgement: Good judgement present (Psych) Assessment & Plan Assessment & Plan (1) Chronic, continuous use of opioids: Code(s): F11.90 - Opioid use, unspecified, uncomplicated (2) Chronic pain syndrome: Code(s): G89.4 - Chronic pain syndrome (3) Bilateral sacroiliitis: Code(s): M46.1 - Sacroiliitis, not elsewhere classified (4) Spondylolysis, lumbar region: Code(s): M43.06 - Spondylolysis, lumbar region Plan Patient has shown accountability for medication regimen and the pill count was accurate. The patient reports no noted side effects. There is no evidence of misuse, abuse or diversion at this time. MassPAT reviewed. Random UDS on 09/03/23 was concordant. Prescription for Percocet 5-325 mg TID for 30 days sent on 10/02/23. Continue follow up with Mental therapist and Psychologist as scheduled for PTSD, depression and anxiety. All questions were answered and patient is in agreement of plan. Follow up in 4 weeks for a pill count and sooner if needed. Medications: Refilled oxycodone-acetaminophen 5-325 mg (Percocet) 1 tab PO TID 30 days PRN 90 tabs 0RF severe pain (scale score 7-10) G89.4 - Chronic pain syndrome, M43.06 - Spondylolysis, lumbar region, M46.1 - Sacroiliitis, not elsewhere classified Coding Level of Care Code Est Pt Level 4 (81106) Diagnoses Chronic, continuous use of opioids F11.90 Chronic pain syndrome G89.4 Bilateral sacroiliitis M46.1 Spondylolysis, lumbar region M43.06
[2023-10-01 13:02] VITALS: BP 111/66; PULSE 71; O2SAT 97; BMI 26.5
== END 2023-10-01 13:32 | disposition home or self-care (01) ==
PROVIDERS: PCP Family Medicine; Visit Provider Nurse Practitioner Family
DX: Z79.891 Long term (current) use of opiate analgesic (principal); M46.1 Sacroiliitis, not elsewhere classified; M43.06 Spondylolysis, lumbar region; G89.4 Chronic pain syndrome
CPT/HCPCS: 99214

== ENCOUNTER → 2023-10-01 12:39 | Outpatient (BNVA) | payer OTHER, SELFPAY | PROVIDERS: PCP Family Medicine; Visit Provider Nurse Practitioner Family | DX: Z51.81 Encounter for therapeutic drug level monitoring (principal); F11.20 Opioid dependence, uncomplicated; M46.1 Sacroiliitis, not elsewhere classified; M43.06 Spondylolysis, lumbar region; G89.4 Chronic pain syndrome | CPT/HCPCS: 99212 ==

== ENCOUNTER 2023-10-30 12:49 | Outpatient (AMB) | payer OTHER, SELFPAY ==
--- NOTE | 2023-10-30 13:01 | MHC.OFFVIS ---
Intake Vital Signs 10/30/23 13:16 Height 5 ft 6 in Weight 160 lb 6 oz BMI 25.9 BP 151/91 H Blood Pressure Location Rt brachial Position Sitting Pulse 92 Pulse Source Pulse Oximeter Pulse Oximetry (%) 98 Oxygen Delivery Method Room Air Intake Visit Reasons: PILL COUNT/confirmed Intake Note: Cherri comes in today for a pill count to oxycodone-acetaminophen, patient should have 3 tablets and presents with 16 tablets which she last took today 10/30/23 at 9am. Pain today 04/27 Cherri signed updated opioid contract in office today, copy of signed contract was provided to patient. [employer] Grade Teacher Required: No Accompanied by: Self / Same As Patient Allergies No Known Allergies Allergy (Verified 10/01/23 13:04) HPI HPI Comments History of Present Illness Details Patient presents today for a pill count. Patient is supposed to have #3 pills and presents with #16. This demonstrates a responsible attitude in regards to medication regimen. Patient reports adequate analgesia on current regimen with no noted side effects. Denies any fever, chills, unintentional weight loss, weakness, abdominal pain, sedation, nausea or dizziness except occasional constipation. Patient requests refill for Miralax. Patient sees Mental therapist on regular basis which has been helpful per patient. Patient reports current opioid medication allows her to be less symptomatic and more functional. 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 Arthritis Surgical History Person who has undergone gender reassignment surgery Social History Alcohol intake: current Alcohol intake frequency: holidays/special occasions only Alcohol type: wine Patient Tobacco Use Status: Former Tobacco user Substance Use Type: Marijuana Current occupational status: disabled Current occupation: rt hand Review of Systems Const All systems reviewed & are unremarkable except as noted in HPI and below Physical Exam Vital Signs: Last Vital Signs Pulse 92 10/30/23 13:16 BP 151/91 H 10/30/23 13:16 Pulse Ox 98 10/30/23 13:16 Oxygen Delivery Method Room Air 10/30/23 13:16 BMI result Body Mass Index 25.9 General: Appears afebrile. Alert and oriented. Mood and affect appropriate. Follows and participates in conversation appropriately. Respiratory effort is unlabored. No cough. Able to transition from sit to stand unassisted. Uses walker with walking. Ambulates with bilaterally normal heel strike and toe off. Psych Appearance: grossly normal Mental Status: mental status grossly normal Speech and movement: Normal speech and movement present Affect: normal affect Attitude: cooperative Thought process: Normal thought process present Thought content: Normal thought content present, suicidality (none), no hallucinations and No Depressive thoughts present Insight: Good insight present (Psych) Judgement: Good judgement present (Psych) Assessment & Plan Assessment & Plan (1) Chronic, continuous use of opioids: Code(s): F11.90 - Opioid use, unspecified, uncomplicated (2) Chronic pain syndrome: Code(s): G89.4 - Chronic pain syndrome (3) Bilateral sacroiliitis: Code(s): M46.1 - Sacroiliitis, not elsewhere classified (4) Spondylolysis, lumbar region: Code(s): M43.06 - Spondylolysis, lumbar region Plan Patient has shown accountability for medication regimen and the pill count was accurate. The patient reports no noted side effects. There is no evidence of misuse, abuse or diversion at this time. MassIDT reviewed. Prescription for Percocet 5-325 mg TID for 30 days sent on 11/03/23. Continue follow up with Mental therapist and Psychologist as scheduled for PTSD, depression and anxiety. All questions were answered and patient is in agreement of plan. Follow up in 4-5 weeks for a pill count and sooner if needed. Medications: Refilled polyethylene glycol 3350 17 grams PO DAILY PRN 30 ea 3RF for constipation F11.90 - Opioid use, unspecified, uncomplicated, G89.4 - Chronic pain syndrome oxycodone-acetaminophen 5-325 mg (Percocet) 1 tab PO TID 30 days PRN 90 tabs 0RF severe pain (scale score 7-10) G89.4 - Chronic pain syndrome, M43.06 - Spondylolysis, lumbar region, M46.1 - Sacroiliitis, not elsewhere classified Coding Level of Care Code Est Pt Level 4 (92563) Diagnoses Chronic, continuous use of opioids F11.90 Chronic pain syndrome G89.4 Bilateral sacroiliitis M46.1 Spondylolysis, lumbar region M43.06
[2023-10-30 13:16] VITALS: BP 151/91; PULSE 92; O2SAT 98; BMI 25.9
== END 2023-10-30 13:30 | disposition home or self-care (01) ==
PROVIDERS: PCP Family Medicine; Visit Provider Nurse Practitioner Family
DX: G89.4 Chronic pain syndrome (principal); M46.1 Sacroiliitis, not elsewhere classified; Z79.891 Long term (current) use of opiate analgesic; M43.06 Spondylolysis, lumbar region
CPT/HCPCS: 99214

== ENCOUNTER → 2023-10-30 12:49 | Outpatient (BNVA) | payer OTHER, SELFPAY | PROVIDERS: PCP Family Medicine; Visit Provider Nurse Practitioner Family | DX: G89.4 Chronic pain syndrome (principal); M46.1 Sacroiliitis, not elsewhere classified; M43.06 Spondylolysis, lumbar region; Z79.891 Long term (current) use of opiate analgesic | CPT/HCPCS: 99212 ==

== ENCOUNTER 2023-11-27 11:31 | Outpatient (AMB) | payer OTHER, SELFPAY ==
--- NOTE | 2023-11-27 11:32 | A.OFFVIS_ITS ---
Intake Vital Signs 11/27/23 11:41 Height 5 ft 6 in Weight 164 lb BMI 26.5 BP 122/80 Blood Pressure Location Lt brachial Position Sitting Respiration 16 Pulse 75 Pulse Source Pulse Oximeter Pulse Oximetry (%) 99 Oxygen Delivery Method Room Air Intake Visit Reasons: PILL COUNT/confirmed Allergies No Known Allergies Allergy (Verified 11/27/23 11:41) HPI HPI Comments History of Present Illness Details Patient presents today for a pill count. Patient is supposed to have #18 pills and presents with #22. This demonstrates a responsible attitude in regards to medication regimen. Patient reports adequate analgesia on current regimen with no noted side effects. Denies any fever, chills, unintentional weight loss, weakness, abdominal pain, sedation, nausea or dizziness except occasional constipation for which patient uses Miralax on as needed basis. Patient sees Mental therapist on regular basis which has been helpful per patient. Patient reports current opioid medication allows her to be less symptomatic and more functional. Patient reports increase in chronic bilateral knee pain, worse on the right. Reports exacerbation of pain with walking, climbing stairs and flexion. Patient uses walker with seat with ambulating. Patient also considers follow up with her Gynecology Provider in [place] for chronic neuropathic pain in perianal and groin areas s/p vaginoplasty. Patient is intersted to restart gabapentin for this as this has been well tolerated and effective in the past. 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 Arthritis Surgical History Person who has undergone gender reassignment surgery Social History Alcohol intake: current Alcohol intake frequency: holidays/special occasions only Alcohol type: wine Patient Tobacco Use Status: Former Tobacco user Substance Use Type: Marijuana Current occupational status: disabled Current occupation: rt hand Review of Systems Const All systems reviewed & are unremarkable except as noted in HPI and below Physical Exam Vital Signs: Last Vital Signs Pulse 75 11/27/23 11:41 Resp 16 11/27/23 11:41 BP 122/80 11/27/23 11:41 Pulse Ox 99 11/27/23 11:41 Oxygen Delivery Method Room Air 11/27/23 11:41 BMI result Body Mass Index 26.5 General: Appears afebrile. Alert and oriented. Mood and affect appropriate. Follows and participates in conversation appropriately. Respiratory effort is unlabored. No cough. Able to transition from sit to stand unassisted. Uses walker with walking. Ambulates with bilaterally normal heel strike and toe off. Extrem General: Yes capillary refill normal, Yes no clubbing, cyanosis or edema and Yes no calf tenderness Right lower extremity: knee Details: normal to inspection, tenderness Location: of the medial joint line and of the lateral joint line, normal ROM and crepitus; no swelling, no ecchymosis and no unusual warmth Left lower extremity: knee Details: normal to inspection, tenderness Location: of the patella, of the medial joint line and of the lateral joint line, normal ROM and crepitus; no swelling, no ecchymosis, no deformity and no unusual warmth Psych Appearance: grossly normal Mental Status: mental status grossly normal Speech and movement: Normal speech and movement present and Clear speech present Affect: normal affect Attitude: cooperative Thought process: Normal thought process present Thought content: Normal thought content present, suicidality (none), no hallucinations and No Depressive thoughts present Insight: Good insight present (Psych) Judgement: Good judgement present (Psych) Assessment & Plan Assessment & Plan (1) Chronic pain syndrome: Code(s): G89.4 - Chronic pain syndrome (2) Bilateral sacroiliitis: Code(s): M46.1 - Sacroiliitis, not elsewhere classified (3) Spondylolysis, lumbar region: Code(s): M43.06 - Spondylolysis, lumbar region (4) Bilateral knee pain: Code(s): M25.561 - Pain in right knee; M25.562 - Pain in left knee Plan Patient has shown accountability for medication regimen and the pill count was accurate. The patient reports no noted side effects. There is no evidence of misuse, abuse or diversion at this time. MassPAT reviewed. Prescription for Percocet 5-325 mg TID for 30 days sent on 12/04/23. Patient continues to see Mental therapist and Psychologist as scheduled for PTSD, depression and anxiety. For bilateral knee pain, will proceed with xray first to assess degree of arthritis. Briefly discussed interventional treatments. Script sent for gabapentin for 300 mg BID, patient will start 300 mg at bedtime for one week and titrate up to BID the 2nd week and on if well tolerated. Side effects and precautions were reviewed with patient. All questions were answered and patient is in agreement of plan. Follow up in on e month for a pill count and sooner if needed. Orders: Orders XR knee LT 3V Today M25.561 - Pain in right knee, M25.562 - Pain in left knee XR knee RT 3V Today M25.561 - Pain in right knee, M25.562 - Pain in left knee Medications: New gabapentin 300 mg PO BID 30 days 60 caps 0RF pain G89.4 - Chronic pain syndrome, M43.06 - Spondylolysis, lumbar region Refilled oxycodone-acetaminophen 5-325 mg (Percocet) 1 tab PO TID 30 days PRN 90 tabs 0RF severe pain (scale score 7-10) G89.4 - Chronic pain syndrome, M43.06 - Spondylolysis, lumbar region, M46.1 - Sacroiliitis, not elsewhere classified Coding Level of Care Code Est Pt Level 4 (98769) Diagnoses Chronic pain syndrome G89.4 Bilateral sacroiliitis M46.1 Spondylolysis, lumbar region M43.06 Bilateral knee pain M25.561; M25.562
[2023-11-27 11:41] VITALS: BP 122/80; PULSE 75; RESP 16; O2SAT 99; BMI 26.5
== END 2023-11-27 12:02 | disposition home or self-care (01) ==
PROVIDERS: PCP Family Medicine; Visit Provider Nurse Practitioner Family
DX: G89.4 Chronic pain syndrome (principal); M46.1 Sacroiliitis, not elsewhere classified; M43.06 Spondylolysis, lumbar region; M25.561 Pain in right knee; M25.562 Pain in left knee
CPT/HCPCS: 99214

== ENCOUNTER → 2023-11-27 11:31 | Outpatient (BNVA) | payer OTHER, SELFPAY | PROVIDERS: PCP Family Medicine; Visit Provider Nurse Practitioner Family | DX: Z51.81 Encounter for therapeutic drug level monitoring (principal); F11.20 Opioid dependence, uncomplicated; M46.1 Sacroiliitis, not elsewhere classified; M43.06 Spondylolysis, lumbar region; M25.561 Pain in right knee; M25.562 Pain in left knee; G89.4 Chronic pain syndrome | CPT/HCPCS: 99212 ==

== ENCOUNTER 2023-12-14 12:32 | Outpatient (REF) | payer OTHER, SELFPAY ==
--- NOTE | ~2023-12-14 | XR_ITS ---
EXAMINATION: XR BILATERAL KNEES CLINICAL INFORMATION: Pain in right knee. COMPARISON: April 02, 2022. TECHNIQUE: AP, lateral and sunrise views of each knee. FINDINGS: LEFT KNEE: Mild narrowing of the medial and patellofemoral compartments. Trace joint effusion. Redemonstration of separate fragment along the lateral upper aspect of the patella, similar to exam of 04/02/2022, possibly related to prior trauma versus normal variant, bipartite patella. RIGHT KNEE: Mild narrowing of the medial and patellofemoral compartments. Trace joint effusion. XR/XR knee LT 3V IMPRESSION: 1. Mild degenerative changes in the bilateral knees. 2. Redemonstration of separate fragment along the lateral upper aspect of the left patella, similar to exam of 04/02/2022, possibly related to prior trauma versus normal variant, bipartite patella.
--- NOTE | ~2023-12-14 | XR_ITS ---
EXAMINATION: XR BILATERAL KNEES CLINICAL INFORMATION: Pain in right knee. COMPARISON: April 02, 2022. TECHNIQUE: AP, lateral and sunrise views of each knee. FINDINGS: LEFT KNEE: Mild narrowing of the medial and patellofemoral compartments. Trace joint effusion. Redemonstration of separate fragment along the lateral upper aspect of the patella, similar to exam of 04/02/2022, possibly related to prior trauma versus normal variant, bipartite patella. RIGHT KNEE: Mild narrowing of the medial and patellofemoral compartments. Trace joint effusion. XR/XR knee RT 3V IMPRESSION: 1. Mild degenerative changes in the bilateral knees. 2. Redemonstration of separate fragment along the lateral upper aspect of the left patella, similar to exam of 04/02/2022, possibly related to prior trauma versus normal variant, bipartite patella.
== END 2023-12-14 12:33 | disposition home or self-care (01) ==
LOC: HO.XRAY 12:32
PROVIDERS: PCP Family Medicine; Visit Provider Nurse Practitioner Family
DX: M25.561 Pain in right knee (principal); M25.562 Pain in left knee
CPT/HCPCS: 73562

== ENCOUNTER 2023-12-25 12:48 | Outpatient (AMB) | payer OTHER, SELFPAY ==
--- NOTE | 2023-12-25 13:08 | MHC.OFFVIS ---
Intake Vital Signs 12/25/23 13:16 Height 5 ft 6 in Weight 162 lb 8 oz BMI 26.2 BP 124/80 Blood Pressure Location Lt brachial Position Sitting Respiration 16 Pulse 83 Pulse Source Pulse Oximeter Pulse Oximetry (%) 96 Oxygen Delivery Method Room Air Intake Visit Reasons: Pill COunt/ Xray results Allergies No Known Allergies Allergy (Verified 12/25/23 13:16) HPI HPI Comments History of Present Illness Details Patient presents today for a pill count. Patient is supposed to have #24 pills and presents with #29. This demonstrates a responsible attitude in regards to medication regimen. Patient reports adequate analgesia on current regimen with no noted side effects. Denies any fever, chills, unintentional weight loss, weakness, abdominal pain, sedation, nausea or dizziness except occasional constipation for which patient uses Miralax on as needed basis. Patient sees Mental therapist on regular basis which has been helpful per patient. Patient reports current opioid medication allows her to be less symptomatic and more functional. Patient continues to endorse chronic bilateral knee pain, worse on the right. Pain increases with walking, climbing stairs and flexion. Patient uses walker with seat with ambulating. We reviewed knee x-rays and interventional treatments today as noted below. 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 Arthritis Surgical History Person who has undergone gender reassignment surgery Social History Alcohol intake: current Alcohol intake frequency: holidays/special occasions only Alcohol type: wine Patient Tobacco Use Status: Former Tobacco user Substance Use Type: Marijuana Current occupational status: disabled Current occupation: rt hand Review of Systems Const All systems reviewed & are unremarkable except as noted in HPI and below Physical Exam Vital Signs: Last Vital Signs Pulse 83 12/25/23 13:16 Resp 16 12/25/23 13:16 BP 124/80 12/25/23 13:16 Pulse Ox 96 12/25/23 13:16 Oxygen Delivery Method Room Air 12/25/23 13:16 BMI result Body Mass Index 26.2 General: Appears afebrile. Alert and oriented. Mood and affect appropriate. Follows and participates in conversation appropriately. Respiratory effort is unlabored. No cough. Able to transition from sit to stand unassisted. Uses walker with walking. Ambulates with bilaterally normal heel strike and toe off. Extrem General: Yes capillary refill normal, Yes no clubbing, cyanosis or edema and Yes no calf tenderness Right lower extremity: knee Details: normal to inspection, tenderness Location: of the medial joint line and of the lateral joint line, normal ROM and crepitus; no swelling, no ecchymosis and no unusual warmth Left lower extremity: knee Details: normal to inspection, tenderness Location: of the patella, of the medial joint line and of the lateral joint line, normal ROM and crepitus; no swelling, no ecchymosis, no deformity and no unusual warmth Psych Appearance: grossly normal and well kempt Mental Status: mental status grossly normal Speech and movement: Normal speech and movement present and Clear speech present Affect: normal affect Attitude: cooperative Thought process: Normal thought process present Thought content: Normal thought content present, suicidality (none), no hallucinations and No Depressive thoughts present Insight: Good insight present (Psych) Judgement: Good judgement present (Psych) Results Reviewed Results Reviewed: XR BILATERAL KNEES 12/14/23 CLINICAL INFORMATION: Pain in right knee. COMPARISON: April 02, 2022. FINDINGS: LEFT KNEE: Mild narrowing of the medial and patellofemoral compartments. Trace joint effusion. Redemonstration of separate fragment along the lateral upper aspect of the patella, similar to exam of 04/02/2022, possibly related to prior trauma versus normal variant, bipartite patella. RIGHT KNEE: Mild narrowing of the medial and patellofemoral compartments. Trace joint effusion. IMPRESSION: 1. Mild degenerative changes in the bilateral knees. 2. Redemonstration of separate fragment along the lateral upper aspect of the left patella, similar to exam of 04/02/2022, possibly related to prior trauma versus normal variant, bipartite patella. Assessment & Plan Assessment & Plan (1) Chronic pain syndrome: Code(s): G89.4 - Chronic pain syndrome (2) Bilateral sacroiliitis: Code(s): M46.1 - Sacroiliitis, not elsewhere classified (3) Spondylolysis, lumbar region: Code(s): M43.06 - Spondylolysis, lumbar region (4) Bilateral knee pain: Code(s): M25.561 - Pain in right knee; M25.562 - Pain in left knee (5) Bilateral primary osteoarthritis of knee: Code(s): M17.0 - Bilateral primary osteoarthritis of knee Plan Patient has shown accountability for medication regimen and the pill count was accurate. The patient reports no noted side effects. There is no evidence of misuse, abuse or diversion at this time. [facility] reviewed. Prescription for Percocet 5-325 mg TID for 30 days sent on 01/01/24. Continue gabapentin. Patient continues to see Mental therapist and Psychologist as scheduled for PTSD, depression and anxiety. Bilateral knee xray results reviewed with patient. Discussed interventional treatments, including diagnostic for genicular RFA or Sprint PNS trial, cortisone injections and gel injections as well as Orthopedic evaluation. Patient would like to review different types of injections with PCP and notify our office if they are interested to proceed with injections. All questions were answered and patient is in agreement of plan. Follow up in one month for a pill count and sooner if needed. Medications: Refilled oxycodone-acetaminophen 5-325 mg (Percocet) 1 tab PO TID 30 days PRN 90 tabs 0RF severe pain (scale score 7-10) G89.4 - Chronic pain syndrome, M43.06 - Spondylolysis, lumbar region, M46.1 - Sacroiliitis, not elsewhere classified gabapentin 300 mg PO BID 60 caps 0RF pain 30 days G89.4 - Chronic pain syndrome, M43.06 - Spondylolysis, lumbar region Coding Level of Care Code Est Pt Level 4 (45119) Diagnoses Chronic pain syndrome G89.4 Bilateral sacroiliitis M46.1 Spondylolysis, lumbar region M43.06 Bilateral knee pain M25.561; M25.562 Bilateral primary osteoarthritis of knee M17.0
[2023-12-25 13:16] VITALS: BP 124/80; PULSE 83; RESP 16; O2SAT 96; BMI 26.2
== END 2023-12-25 13:33 | disposition home or self-care (01) ==
PROVIDERS: PCP Family Medicine; Visit Provider Nurse Practitioner Family
DX: G89.4 Chronic pain syndrome (principal); M46.1 Sacroiliitis, not elsewhere classified; M43.06 Spondylolysis, lumbar region; Z79.891 Long term (current) use of opiate analgesic; M25.561 Pain in right knee; M25.562 Pain in left knee; M17.0 Bilateral primary osteoarthritis of knee
CPT/HCPCS: 99214

== ENCOUNTER → 2023-12-25 12:48 | Outpatient (BNVA) | payer OTHER, SELFPAY | PROVIDERS: PCP Family Medicine; Visit Provider Nurse Practitioner Family | DX: Z51.81 Encounter for therapeutic drug level monitoring (principal); M17.0 Bilateral primary osteoarthritis of knee; M25.561 Pain in right knee; M25.562 Pain in left knee; M43.06 Spondylolysis, lumbar region; M46.1 Sacroiliitis, not elsewhere classified; G89.4 Chronic pain syndrome | CPT/HCPCS: 99212 ==

== ENCOUNTER 2024-01-22 11:20 | Outpatient (AMB) | payer OTHER, SELFPAY ==
--- NOTE | 2024-01-22 11:43 | MHC.OFFVIS ---
Intake Vital Signs 01/22/24 11:45 Height 5 ft 6 in Weight 163 lb 8 oz BMI 26.4 BP 131/91 H Blood Pressure Location Rt brachial Position Sitting Pulse 84 Pulse Source Pulse Oximeter Pulse Oximetry (%) 97 Oxygen Delivery Method Room Air Intake Visit Reasons: Medication Count Intake Note: Cherri comes in today for a pill count to oxycodone-acetaminophen, patient should have 30 tablets and presents with 35 tablets which she last took last night 01/21/24 at 11:05 pm. Pain today 07/28. Security Tech Required: No Allergies No Known Allergies Allergy (Verified 01/22/24 11:46) HPI HPI Comments History of Present Illness Details Patient presents today for a pill count. Patient is supposed to have #30 pills and presents with #35. This demonstrates a responsible attitude in regards to medication regimen. Patient reports adequate analgesia on current regimen with no noted side effects. Denies any fever, chills, unintentional weight loss, weakness, abdominal pain, sedation, nausea or dizziness except occasional constipation for which patient uses Miralax on as needed basis. Patient sees Mental therapist on regular basis which has been helpful per patient. Patient reports current opioid medication allows her to be less symptomatic and more functional. Patient reports her grandma recently due to liver cancer, she presents tearful and crying. She did not had closure with her grandma and has been very upset about this. Patient saw her Psychologist on Thursday and reports this has been helpful. 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 Arthritis Surgical History Person who has undergone gender reassignment surgery Social History Alcohol intake: current Alcohol intake frequency: holidays/special occasions only Alcohol type: wine Patient Tobacco Use Status: Former Tobacco user Substance Use Type: Marijuana Current occupational status: disabled Current occupation: rt hand Review of Systems Const All systems reviewed & are unremarkable except as noted in HPI and below Physical Exam Vital Signs: Last Vital Signs Pulse 84 01/22/24 11:45 BP 131/91 H 01/22/24 11:45 Pulse Ox 97 01/22/24 11:45 Oxygen Delivery Method Room Air 01/22/24 11:45 BMI result Body Mass Index 26.4 General: Appears afebrile. Alert and oriented. Mood and affect appropriate. Follows and participates in conversation appropriately. Respiratory effort is unlabored. No cough. Able to transition from sit to stand unassisted. Uses walker with walking. Ambulates with bilaterally normal heel strike and toe off. Extrem General: Yes capillary refill normal, Yes no clubbing, cyanosis or edema and Yes no calf tenderness Right lower extremity: knee Details: normal to inspection, tenderness Location: of the medial joint line and of the lateral joint line, normal ROM and crepitus; no swelling Left lower extremity: knee Details: normal to inspection, tenderness Location: of the patella, of the medial joint line and of the lateral joint line, normal ROM and crepitus; no swelling Psych Appearance: grossly normal and well kempt Mental Status: mental status grossly normal Speech and movement: Normal speech and movement present and Clear speech present Affect: normal affect Attitude: cooperative Thought process: Normal thought process present Thought content: Normal thought content present, suicidality (none), no hallucinations and No Depressive thoughts present Insight: Good insight present (Psych) Judgement: Good judgement present (Psych) Results Reviewed Results Reviewed: XR BILATERAL KNEES 12/14/23 CLINICAL INFORMATION: Pain in right knee. COMPARISON: April 02, 2022. FINDINGS: LEFT KNEE: Mild narrowing of the medial and patellofemoral compartments. Trace joint effusion. Redemonstration of separate fragment along the lateral upper aspect of the patella, similar to exam of 04/02/2022, possibly related to prior trauma versus normal variant, bipartite patella. RIGHT KNEE: Mild narrowing of the medial and patellofemoral compartments. Trace joint effusion. IMPRESSION: 1. Mild degenerative changes in the bilateral knees. 2. Redemonstration of separate fragment along the lateral upper aspect of the left patella, similar to exam of 04/02/2022, possibly related to prior trauma versus normal variant, bipartite patella. Assessment & Plan Assessment & Plan (1) Chronic pain syndrome: Code(s): G89.4 - Chronic pain syndrome (2) Bilateral sacroiliitis: Code(s): M46.1 - Sacroiliitis, not elsewhere classified (3) Spondylolysis, lumbar region: Code(s): M43.06 - Spondylolysis, lumbar region (4) Bilateral knee pain: Code(s): M25.561 - Pain in right knee; M25.562 - Pain in left knee (5) Bilateral primary osteoarthritis of knee: Code(s): M17.0 - Bilateral primary osteoarthritis of knee Plan Patient has shown accountability for medication regimen and the pill count was accurate. The patient reports no noted side effects. There is no evidence of misuse, abuse or diversion at this time. beSUCCESS reviewed. Prescription for Percocet 5-325 mg TID for 30 days sent on 02/02/24. Continue gabapentin. Emotional support with active listening as patient is grieving her recent loss of grandma. Patient continues to see Mental therapist and Psychologist as scheduled for PTSD, depression, anxiety and grieving. All questions were answered and patient is in agreement of plan. Follow up in one month for a pill count and sooner if needed. Medications: Refilled oxycodone-acetaminophen 5-325 mg (Percocet) 1 tab PO TID PRN 90 tabs 0RF severe pain (scale score 7-10) 30 days G89.4 - Chronic pain syndrome, M43.06 - Spondylolysis, lumbar region, M46.1 - Sacroiliitis, not elsewhere classified Coding Level of Care Code Est Pt Level 4 (04141) Diagnoses Chronic pain syndrome G89.4 Bilateral sacroiliitis M46.1 Spondylolysis, lumbar region M43.06 Bilateral knee pain M25.561; M25.562 Bilateral primary osteoarthritis of knee M17.0
[2024-01-22 11:45] VITALS: BP 131/91; PULSE 84; O2SAT 97; BMI 26.4
== END 2024-01-22 11:57 | disposition home or self-care (01) ==
LOC: HO.PMC 11:20
PROVIDERS: PCP Family Medicine; Visit Provider Nurse Practitioner Family
DX: G89.4 Chronic pain syndrome (principal); M46.1 Sacroiliitis, not elsewhere classified; M43.06 Spondylolysis, lumbar region; Z79.891 Long term (current) use of opiate analgesic; M25.561 Pain in right knee; M25.562 Pain in left knee; M17.0 Bilateral primary osteoarthritis of knee
CPT/HCPCS: 99214

== ENCOUNTER → 2024-01-22 11:20 | Outpatient (BNVA) | payer OTHER, SELFPAY | PROVIDERS: PCP Family Medicine; Visit Provider Nurse Practitioner Family | DX: Z51.81 Encounter for therapeutic drug level monitoring (principal); F11.20 Opioid dependence, uncomplicated; M46.1 Sacroiliitis, not elsewhere classified; M43.06 Spondylolysis, lumbar region; M25.561 Pain in right knee; M25.562 Pain in left knee; M17.0 Bilateral primary osteoarthritis of knee; G89.4 Chronic pain syndrome | CPT/HCPCS: 99212 ==

== ENCOUNTER 2024-02-18 09:12 | Outpatient (REF) | payer OTHER, SELFPAY | END 2024-02-18 09:13 | disposition home or self-care (01) | LOC: HO.HOSX 09:12 | PROVIDERS: Visit Provider Physician Assistant | DX: Z13.89 Encounter for screening for other disorder (principal) ==

== ENCOUNTER 2024-02-18 12:15 | Emergency (ER) | payer OTHER, SELFPAY ==
--- NOTE | ~2024-02-18 | XR_ITS ---
EXAMINATION: XR CHEST CLINICAL INFORMATION: Chest pain. COMPARISON: 11/27/2022 TECHNIQUE: 2 views of the chest were obtained. FINDINGS: Lungs are well expanded. No focal consolidation. No pleural effusion. Cardiac silhouette is within normal limits. XR/XR chest 2V IMPRESSION: No acute abnormality.
--- NOTE | 2024-02-18 12:28 | ECG_ITS ---
Test Reason : chest pain Blood Pressure : / mmHG Vent. Rate : 069 BPM Atrial Rate : 069 BPM P-R Int : 158 ms QRS Dur : 076 ms QT Int : 378 ms P-R-T Axes : 033 017 046 degrees QTc Int : 405 ms Normal sinus rhythm Low voltage QRS Borderline ECG When compared with ECG of 12-APR-2021 04:12, No significant change was found Referred By: Naya Zhang Electronically Signed By:AMANDA CYR
--- NOTE | 2024-02-18 12:44 | ED.CHESTPAIN ---
HPI - Chest Pain General Chief Complaint: Chest Pain Stated Complaint: chest pain Time Seen by Provider: 02/18/24 15:07 Source: patient Mode of arrival: ambulatory Limitations: no limitations History of Present Illness HPI narrative: 38 yo female with PMH of polyarthralgia, neuropathy, chronic pain syndrome on oxycodone, radiculopathy here with c/o L sided chest wall pain after getting tackled by dog at dog park it hit the chest. She notes she did have breast implants done but the breasts are normal no discoloration or bruising nipple is normal MD complaint: other (chest wall pain) Pertinent past history: other (hit in chest) Onset (ago): day(s) (3) Timing of current episode: constant Prior episodes: No Onset: other (after being hit in chest by dog at dog park) Pain location: left chest (upper near clavicle) Pain radiation: none Severity: moderate Quality: aching Relieving factors: nothing Exacerbating factors: palpation and movement Context: trauma/injury Treatment prior to arrival: none Related Data Home Medications ?Medication ?Instructions ?Recorded ?Confirmed methylphenidate HCl 36 mg 36 mg PO QAM 10/03/20 08/12/22 tablet,extended release 24 hr melatonin 5 mg capsule 5 mg PO .hs 02/13/21 08/12/22 oxybutynin chloride 10 mg 10 mg PO DAILY 03/13/21 08/12/22 tablet,extended release 24 hr duloxetine 30 mg capsule,delayed 30 mg PO DAILY 12/11/21 08/12/22 release estradiol cypionate 5 mg/mL mg IM 04/17/22 08/12/22 intramuscular oil (Depo-Estradiol) cyanocobalamin (vitamin B-12) 1,000 mcg PO DAILY 05/16/22 08/12/22 1,000 mcg tablet,extended release aripiprazole 2 mg tablet 2 mg PO DAILY 07/15/22 08/12/22 duloxetine 60 mg capsule,delayed 60 mg PO DAILY 07/15/22 08/12/22 release multivitamin 1 tab PO DAILY 07/15/22 08/12/22 aripiprazole 5 mg tablet 5 mg PO DAILY 09/09/22 doxycycline monohydrate 100 mg 100 mg PO BID 09/09/22 capsule melatonin 5 mg tablet 5 mg PO BEDTIME 10/10/22 testosterone 1.62 % (20.25 mg/1.25 0 mg topical 01/12/23 gram) transdermal gel packet aspirin 81 mg tablet,delayed 81 mg PO DAILY 02/09/23 release cetirizine 10 mg tablet 10 mg PO DAILY 02/09/23 testosterone 0 mg topical 02/09/23 cariprazine 1.5 mg capsule 1.5 mg PO DAILY 04/13/23 (Vraylar) cariprazine 3 mg capsule (Vraylar) 3 mg PO DAILY 08/03/23 clindamycin phosphate 1 % topical 1 appl topical BID 10/01/23 gel Previous Rx's ?Medication ?Instructions ?Recorded ibuprofen 600 mg tablet 600 mg PO Q6H PRN pain #20 tabs 04/17/21 benzonatate 200 mg capsule 200 mg PO TID PRN cough #20 caps 10/21/22 naloxone 4 mg/actuation nasal 4 mg intranasal Q2M PRN opioid 01/12/23 spray (Narcan) overdose #2 ea diclofenac sodium 1 % topical gel 2 g topical TID PRN Pain, Moderate 06/08/23 (Voltaren Arthritis Pain) #100 grams polyethylene glycol 3350 17 gram 17 g PO DAILY PRN for constipation 10/30/23 oral powder packet #30 ea gabapentin 300 mg capsule 300 mg PO BID pain 30 days #60 caps 12/25/23 oxycodone-acetaminophen 5 mg-325 1 tab PO TID PRN severe pain 01/22/24 mg tablet (Percocet) (scale score 7-10) 30 days #90 tabs lidocaine 5 % topical patch 1 patch topical DAILY #30 ea 02/18/24 Allergies Allergy/AdvReac Type Severity Reaction Status Date / Time cockroach Allergy Rash Verified 02/18/24 12:49 feathers Allergy Rash Verified 02/18/24 12:49 Review of Systems Review of Systems: Constitutional : No Weight loss, No Fever, No Chills ENT/Mouth : No sore throat, No Rhinorrhea Eyes: No Eye Pain, No Swelling Cardiovascular : pos Chest Pain, no SOB, no Dyspnea on Exertion, No Orthopnea, No Edema, No Palpitations Respiratory : No Cough, No Sputum Gastrointestinal : no Nausea, No Vomiting, No Diarrhea, No abdominal Pain, No Hematochezia, No Melena Genitourinary : No Dysuria, No Urinary Frequency Musculoskeletal : No joint pain, No Myalgias, No Joint Swelling Skin : No Skin Lesions, No rash Neuro : No Weakness, No Numbness, No Dizziness, No Headache Psych : No Anxiety/Panic, No Depression All other systems reviewed and are negative [facility] Past Medical History Attestation statement: The following information was validated with the patient. 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 Arthritis Surgical History Person who has undergone gender reassignment surgery Social History Social History Alcohol intake: current Alcohol intake frequency: holidays/special occasions only Alcohol type: wine Patient Tobacco Use Status: Former Tobacco user Substance Use Type: Marijuana Current occupational status: disabled Current occupation: rt hand Physical Exam Vital Signs: Vital Signs: Last Vital Signs Temp 97.6 F 02/18/24 12:46 Pulse 73 02/18/24 12:46 Resp 18 02/18/24 12:46 BP 133/79 02/18/24 12:46 Pulse Ox 99 02/18/24 12:46 O2 Del Method Room Air 02/18/24 12:46 BMI result Body Mass Index 26.1 Appearance: Alert. Oriented X3. No acute distress. Eyes: Pupils equal, round and reactive to light. ENT: Pharynx normal. Neck: Normal inspection. Neck supple. CVS: Normal heart rate and rhythm. Pulses normal. Chest: ttp along upper L pectoralis - no bruising, no ttp along implant, nipple normal appearing, able to reproduce the pain Respiratory: No respiratory distress. Breath sounds normal. Abdomen: Soft and non-tender. Skin: Skin warm and dry. Normal skin color. Normal skin turgor. Extremities: No lower extremity edema. No calf ttp Neuro: Oriented X 3. No motor deficit. No sensory deficit. Course Course Course Narrative: This is a rapid medical exam completed by Re TRANSPORTATION MAINTENANCE SUPERVISOR: Additional HPI, ROS, PE not included below will be deferred to primary provider. Left chest pain starting yesterday. States pain is reproducible with palpation and does not radiate. Feels as if she feels swelling/tissues. Describes pain as throbbing. Smoked menthol cigarettes and quit 7 years ago, vaped until last year, occassional marijuana smoking. Plan: EKG, CXR, labs w/troponin and d-dimer Medical Decision Making Medical Decision Making [facility] Narrative: 38 yo female with PMH of polyarthralgia, neuropathy, chronic pain syndrome on oxycodone, radiculopathy here with c/o reproduceable chest wall pain after getting hit by a dog in chest [place] [employer] Her implaint looks normal no signs of implant rupture it is MSK in nature, triage EKG, CXR, trop and ddimer negative, not consistent with ACS< VTE, dissection will treat as MSK pain and DC home. Differential Diagnosis Differential Diagnoses: The differential diagnosis associated with the presentation includes chest pain, chest wall pain reproduceable EKG and trop negative ddimer negative Admission/Observation Consideration of admission/observation: Escalation of care including admission/observation considered work up negative stable for DC Lab Data [facility] Lab Attestation statement: I reviewed the patient's lab results. 02/18/24 13:34 02/18/24 13:34 Labs: Lab Results 02/18/24 Range/Units 13:34 WBC 8.6 (4.8-10.8) X10*3/uL RBC 4.56 (4.20-5.50) X10*6/uL Hgb 14.3 (12.0-16.0) g/dl Hct 40.9 (37.0-47.0) % MCV 89.7 (80.0-98.0) fL MCH 31.4 (27.0-33.0) pg MCHC 35.0 (31.0-35.0) g/dl RDW 11.6 (11.0-16.0) % Plt Count 326 (160-400) X10*3/uL MPV 8.5 L (9.4-12.3) fL Immature Gran % (Auto) 0.2 (0.0-0.4) % Neut % (Auto) 68.5 (45-73) % Lymph % (Auto) 23.8 (20-40) % [place] % (Auto) 7.1 (2-11) % Eos % (Auto) 0.2 (0-4) % Baso % (Auto) 0.2 (0-2) % Lymph # (Auto) 2.0 (1.2-4.9) X10*3/uL [place] # (Auto) 0.6 (0.1-1.2) X10*3/uL Eos # (Auto) 0.0 (0.0-0.4) X10*3/uL Baso # (Auto) 0.0 (0.0-0.2) X10*3/uL Abs Immat Gran (auto) 0.02 (0.00-0.03) X10*3/uL Absolute Neuts (auto) 5.9 (2.0-8.3) x10*3/uL Absolute Nucleated RBC 0.000 (0.0-0.012) X10*3/uL Nucleated RBC % (auto) 0.0 (0.0-0.2) /100WBC D-Dimer High Sensitivty < 150 NG/ML Sodium 138 (135-145) mmol/L Potassium 4.4 (3.3-5.1) mmol/L Chloride 106 (96-108) mmol/L Carbon Dioxide 24 (22-29) mmol/L Anion Gap 12 (12-20) BUN 11 (9-16) mg/dL Creatinine 0.74 (0.5-1.4) mg/dL Estim Creat Clear Calc 107.3 Estimated GFR > 60 Random Glucose 94 (60-115) mg/dL Calcium 9.7 (8.4-10.2) mg/dL Total Bilirubin 0.9 (0.0-1.0) mg/dL AST 20 (5-31) U/L ALT 21 (0-31) U/L Alkaline Phosphatase 76 (39-117) U/L Troponin I High Sens < 2.7 (<3.5-17.0) ng/L Total Protein 7.1 (6.5-8.0) g/dL Albumin 4.4 (3.5-5.0) g/dL Independent Interpretation I performed an independent interpretation of an: EKG and Plain X-Ray (normal ) Interpretation: Rate: 69 Rhythm: NSR [place]: normal Normal P waves. Normal MARYANN. Normal QRS complex. ST T wave : normal no ANYA. inverted t wave V1 qTC: normal prior studies: no change The study has been interpreted contemporaneously by me. . Radiology Impression Discussion of test interpretation with radiology: I have reviewed the radiologist's reading. External Record Review External record reviewed: Inpatient record Prescription Management I considered prescription management with: Other Discharge Plan Discharge Clinical Impression: Chest wall contusion Patient Disposition: Home, Self-Care Instructions: Contusion in Adults (ED) Additional Instructions: labs reassuring, CXR normal, EKG reassuring return for worsening pain, swelling, bruising or change in size of your breast Prescriptions: New lidocaine 5 % adhesive patch,medicated 1 patch topical DAILY Qty: 30 0RF Rx Instructions: leave on most painful area for up to 12 hrs No Action ibuprofen 600 mg tablet 600 mg PO Q6H PRN (Reason: pain) Qty: 20 0RF benzonatate 200 mg capsule 200 mg PO TID PRN (Reason: cough) Qty: 20 0RF melatonin 5 mg capsule 5 mg PO .hs oxybutynin chloride 10 mg tablet extended release 24hr 10 mg PO DAILY methylphenidate HCl 36 mg tablet extended release 24hr 36 mg PO QAM cyanocobalamin (vitamin B-12) 1,000 mcg tablet extended release 1,000 mcg PO DAILY multivitamin Tablet 1 tab PO DAILY aripiprazole 2 mg tablet 2 mg PO DAILY duloxetine 60 mg capsule,delayed release(DR/EC) 60 mg PO DAILY melatonin 5 mg tablet 5 mg PO BEDTIME duloxetine 30 mg capsule,delayed release(DR/EC) 30 mg PO DAILY Depo-Estradiol 5 mg/mL oil IM aripiprazole 5 mg tablet 5 mg PO DAILY doxycycline monohydrate 100 mg capsule 100 mg PO BID Vraylar 1.5 mg capsule 1.5 mg PO DAILY diclofenac sodium [Voltaren Arthritis Pain] 1 % gel 2 g topical TID PRN (Reason: Pain, Moderate) Qty: 100 3RF Rx Instructions: apply to single elbow, wrist or hand; for hand includes palm/fingers/back of hand Vraylar 3 mg capsule 3 mg PO DAILY clindamycin phosphate 1 % gel 1 appl topical BID polyethylene glycol 3350 17 gram powder in packet 17 g PO DAILY PRN (Reason: for constipation) Qty: 30 3RF testosterone 1.62 % (20.25 mg/1.25 gram) gel in packet 0 mg topical naloxone [Narcan] 4 mg/actuation spray,non-aerosol 4 mg intranasal Q2M PRN (Reason: opioid overdose) Qty: 2 0RF Rx Instructions: spray 1 dose into ONE nostril; alternate nostrils w each dose until help arrives cetirizine 10 mg tablet 10 mg PO DAILY testosterone 20.25 mg/1.25 gram (1.62 %) gel in metered-dose pump 0 mg topical aspirin 81 mg tablet,delayed release (DR/EC) 81 mg PO DAILY gabapentin 300 mg capsule 300 mg PO BID 30 Days Qty: 60 0RF oxycodone-acetaminophen [Percocet] 5-325 mg tablet 1 tab PO TID PRN (Reason: severe pain (scale score 7-10)) 30 Days Qty: 90 0RF Print Language: Micronesian
[2024-02-18 12:46] VITALS: BP 133/79; PULSE 73; RESP 18; TEMP 36.4; O2SAT 99; BMI 26.1
[2024-02-18 13:38] LABS: MANUAL DIFF FLAG NO
[2024-02-18 13:40] LABS: Basophils Percent Auto 0.2 % (0-2); Eosinophils Percent Auto 0.2 % (0-4); Hematocrit 40.9 % (37.0-47.0); Hemoglobin 14.3 g/dl (12.0-16.0); Imm Gran Abs Auto 0.02 X10*3/uL (0.00-0.03); Imm Gran Pct Auto 0.2 % (0.0-0.4); Lymphocytes Percent Auto 23.8 % (20-40); Mean Corpuscular Hemoglobin 31.4 pg (27.0-33.0); Mean Corpuscular Volume 89.7 fL (80.0-98.0); Mean Platelet Volume 8.5 fL (9.4-12.3); Monocytes Absolute Auto 0.6 X10*3/uL (0.1-1.2); Monocytes Percent Auto 7.1 % (2-11); Neutrophils Absolute Auto 5.9 x10*3/uL (2.0-8.3); Neutrophils Percent Auto 68.5 % (45-73); Platelet Count 326 X10*3/uL (160-400); Red Blood Count 4.56 X10*6/uL (4.20-5.50); Red Cell Distribution Width 11.6 % (11.0-16.0); White Blood Count 8.6 X10*3/uL (4.8-10.8)
[2024-02-18 13:50] LABS: D Dimer High Sensitivity < 150 NG/ML
[2024-02-18 13:55] LABS: Alanine Aminotransferase 21 U/L (0-31); Albumin Level 4.4 g/dL (3.5-5.0); Alkaline Phosphatase 76 U/L (39-117); Anion Gap 12 (12-20); Aspartate Amino Transferase 20 U/L (5-31); Bilirubin Total 0.9 mg/dL (0.0-1.0); Blood Urea Nitrogen 11 mg/dL (9-16); Calcium 9.7 mg/dL (8.4-10.2); Carbon Dioxide 24 mmol/L (22-29); Chloride 106 mmol/L (96-108); Creatinine Clr Calc Pharmacy 107.3; Estimated Glomerular Filt Rate > 60; Glucose Random 94 mg/dL (60-115); Potassium 4.4 mmol/L (3.3-5.1); Sodium 138 mmol/L (135-145); Total Protein 7.1 g/dL (6.5-8.0)
[2024-02-18 14:05] LABS: Troponin-I High Sensitivity < 2.7 ng/L (<3.5-17.0)
[2024-02-18 15:22] VITALS: BP 118/74; PULSE 73; RESP 20; O2SAT 98
[2024-02-18] MEDS: Lidocaine 4 % Patch ADH..PATCH 1 PATCH TRANSDERMA (15:27)
--- NOTE | 2024-02-18 15:32 | PC.NURSE ---
THIS RN ASSUMED CARE OF PT @ 1500. PT MEDICATED ACCORDING TO MAR
[2024-02-18 15:40] VITALS: BP 118/74; PULSE 73; RESP 20; TEMP 36.4; O2SAT 98
== END 2024-02-18 15:41 | disposition home or self-care (01) ==
PROVIDERS: Nurse Practitioner Family; Emergency Provider Emergency Medicine; PCP Family Medicine
DX: R07.89 Other chest pain (principal); M25.512 Pain in left shoulder; Z79.899 Other long term (current) drug therapy
CPT/HCPCS: 36415; 71046; 80053; 84484; 85025; 85379; 93005; 99283; 99284

== ENCOUNTER → 2024-02-18 12:28 | Outpatient (BNV) | payer OTHER, SELFPAY | PROVIDERS: PCP Family Medicine; Visit Provider Internal Medicine | DX: R07.9 Chest pain, unspecified (principal) | CPT/HCPCS: 93010 ==

== ENCOUNTER 2024-02-23 08:34 | Outpatient (REF) | payer OTHER, SELFPAY | END 2024-02-23 08:35 | disposition home or self-care (01) | LOC: HO.HOSX 08:34 | PROVIDERS: Visit Provider Physician Assistant | DX: Z13.89 Encounter for screening for other disorder (principal) ==

== ENCOUNTER 2024-02-26 10:41 | Outpatient (AMB) | payer OTHER, SELFPAY ==
--- NOTE | 2024-02-26 10:48 | MHC.OFFVIS ---
Vital Signs 02/26/24 11:00 Height 5 ft 7 in Weight 167 lb 6 oz BMI 26.2 BP 140/84 H Blood Pressure Location Rt brachial Position Sitting Pulse 62 Pulse Source Pulse Oximeter Pulse Oximetry (%) 100 Oxygen Delivery Method Room Air Intake Visit Reasons: PILL COUNT Intake Note: Cherri comes in today for a pill count to oxycodone, patient should have 18 tablets and presents with 28 tablets which she last took today 02/26/24 at 1am. 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 Patient is supposed to have #18 pills and presents with #28 pills. This demonstrates a responsible attitude in regards to medication regimen. Patient reports adequate analgesia on current regimen with no noted side effects. Denies any fever, chills, unintentional weight loss, weakness, abdominal pain, sedation, nausea or dizziness except occasional constipation for which patient uses Miralax on as needed basis. Patient sees Mental therapist on regular basis which has been helpful per patient. Patient reports current opioid medication allows her to be less symptomatic and more functional. Patient reports recent ER visit after being tackled by her dog who hit her left upper chest. Her cardiac work up for chest pain was normal. She reports mild tenderness to left chest wall which has been improving. Patient also reports upcoming follow up with Orthopedic provider to evaluate right lower leg/foot pain after moving her furniture and injuring her right lateral lower leg. She has superficial laceration that has been healing well but continues to experience right lateral foot discomfort with walking and believes ankle bracing would be beneficial. Lateral aspect of right foot is normal to inspection, no swelling or redness. 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 Arthritis Surgical History Person who has undergone gender reassignment surgery Social History Alcohol intake: current Alcohol intake frequency: holidays/special occasions only Alcohol type: wine Patient Tobacco Use Status: Former Tobacco user Substance Use Type: Marijuana Current occupational status: disabled Current occupation: rt hand Review of Systems Const All systems reviewed & are unremarkable except as noted in HPI and below Physical Exam Vital Signs: Last Vital Signs Pulse 62 02/26/24 11:00 BP 140/84 H 02/26/24 11:00 Pulse Ox 100 02/26/24 11:00 Oxygen Delivery Method Room Air 02/26/24 11:00 BMI result Body Mass Index 26.2 General: Appears afebrile. Alert and oriented. Mood and affect appropriate. Follows and participates in conversation appropriately. Respiratory effort is unlabored. No cough. Able to transition from sit to stand unassisted. Uses walker with walking. Ambulates with bilaterally normal heel strike and toe off. Skin Trauma: laceration (well healing) right lower leg superficial, motor nerve function intact and sensation intact; not contaminated Extrem General: Yes capillary refill normal, Yes no clubbing, cyanosis or edema and Yes no calf tenderness Right lower extremity: lower leg Details: normal to inspection, tenderness (distal lateral lower leg and lateral foot) and laceration (well healing laceration left lateral leg); no erythema, no localized swelling and no unusual warmth Psych Appearance: grossly normal Mental Status: mental status grossly normal Speech and movement: Normal speech and movement present and Clear speech present Affect: normal affect Attitude: cooperative Thought process: Normal thought process present Thought content: Normal thought content present, suicidality (none), no hallucinations and Depressive thoughts present Insight: Good insight present (Psych) Judgement: Good judgement present (Psych) Results Reviewed Results Reviewed: XR BILATERAL KNEES 12/14/23 CLINICAL INFORMATION: Pain in right knee. COMPARISON: April 02, 2022. FINDINGS: LEFT KNEE: Mild narrowing of the medial and patellofemoral compartments. Trace joint effusion. Redemonstration of separate fragment along the lateral upper aspect of the patella, similar to exam of 04/02/2022, possibly related to prior trauma versus normal variant, bipartite patella. RIGHT KNEE: Mild narrowing of the medial and patellofemoral compartments. Trace joint effusion. IMPRESSION: 1. Mild degenerative changes in the bilateral knees. 2. Redemonstration of separate fragment along the lateral upper aspect of the left patella, similar to exam of 04/02/2022, possibly related to prior trauma versus normal variant, bipartite patella. Assessment & Plan Assessment & Plan (1) Chronic pain syndrome: Code(s): G89.4 - Chronic pain syndrome Category: Medical (2) Bilateral sacroiliitis: Code(s): M46.1 - Sacroiliitis, not elsewhere classified Category: Medical (3) Spondylolysis, lumbar region: Code(s): M43.06 - Spondylolysis, lumbar region Category: Medical (4) Polyarthralgia: Code(s): M25.50 - Pain in unspecified joint Category: Medical (5) Chronic, continuous use of opioids: Code(s): F11.90 - Opioid use, unspecified, uncomplicated Category: Medical Plan Patient has shown accountability for medication regimen and the pill count was accurate. The patient reports no noted side effects. There is no evidence of misuse, abuse or diversion at this time. [employer] reviewed. Prescription for Percocet 5-325 mg TID for 30 days sent on 03/05/24. Continue gabapentin. All questions were answered and patient is in agreement of plan. Follow up in one month for a pill count and sooner if needed. Medications: Refilled oxycodone-acetaminophen 5-325 mg (Percocet) 1 tab PO TID 30 days PRN 90 tabs 0RF severe pain (scale score 7-10) G89.4 - Chronic pain syndrome, M43.06 - Spondylolysis, lumbar region, M46.1 - Sacroiliitis, not elsewhere classified Coding Level of Care Code Est Pt Level 4 (02267) Diagnoses Chronic pain syndrome G89.4 Bilateral sacroiliitis M46.1 Spondylolysis, lumbar region M43.06 Polyarthralgia M25.50 Chronic, continuous use of opioids F11.90
[2024-02-26 11:00] VITALS: BP 140/84; PULSE 62; O2SAT 100; BMI 26.2
== END 2024-02-26 11:17 | disposition home or self-care (01) ==
PROVIDERS: PCP Family Medicine; Visit Provider Nurse Practitioner Family
DX: G89.4 Chronic pain syndrome (principal); M46.1 Sacroiliitis, not elsewhere classified; M43.06 Spondylolysis, lumbar region; Z79.891 Long term (current) use of opiate analgesic; M25.50 Pain in unspecified joint
CPT/HCPCS: 99214

== ENCOUNTER → 2024-02-26 10:41 | Outpatient (BNVA) | payer OTHER, SELFPAY | PROVIDERS: PCP Family Medicine; Visit Provider Nurse Practitioner Family | DX: G89.4 Chronic pain syndrome (principal); M46.1 Sacroiliitis, not elsewhere classified; M43.06 Spondylolysis, lumbar region; M25.50 Pain in unspecified joint; Z79.891 Long term (current) use of opiate analgesic | CPT/HCPCS: 99212 ==

== ENCOUNTER 2024-02-29 09:37 | Outpatient (REF) | payer OTHER, SELFPAY ==
--- NOTE | ~2024-02-29 | XR_ITS ---
EXAMINATION: XR FOOT, RIGHT CLINICAL INFORMATION: Pain in unspecified foot. COMPARISON: 10/18/2021. TECHNIQUE: AP, lateral, and oblique views of the right foot. FINDINGS: The bone mineralization is normal. No significant plantar calcaneal spur. Radiopaque marker placed by technologist to indicate the area of concern as indicated by the patient along the lateral aspect of the foot. No displaced fracture appreciated. No displaced fracture appreciated. Minimal degenerative changes in the first metatarsophalangeal joint. Toes are flexed, limiting evaluation. XR/XR foot RT min 3V IMPRESSION: No displaced fracture appreciated. Recommend follow up imaging in 10-14 days if fracture is suspected.
== END 2024-02-29 09:38 | disposition home or self-care (01) ==
LOC: HO.HOSX 09:37
PROVIDERS: Visit Provider Physician Assistant
DX: S93.401A Sprain of unspecified ligament of right ankle, initial encounter (principal)
CPT/HCPCS: 73630; 99212

== ENCOUNTER 2024-02-29 11:34 | Outpatient (AMB) | payer OTHER, SELFPAY ==
--- NOTE | 2024-02-29 11:47 | MHC.OFFVIS ---
Intake Visit Reasons: Newprob-right pinky toe px, DOI 02/07/24 Intake Note: Cherri is a 38 year old female who presents today for a evaluation of her right pinky toe, DOI 02/07/24. Patient reports ongoing pain for about . She expresses that she was at a dog park and she had her dog in her arms and a dog jumped at her which made her hit the lateral side of her foot. Allergies cockroach Allergy (Verified 02/29/24 11:58) Rash feathers Allergy (Verified 02/29/24 11:58) Rash HPI HPI Newprob-right pinky toe px, DOI 02/07/24: Details: 38-year-old female who presents in the office today for an evaluation of right little toe pain. Patient reports ongoing pain in the right foot since 02/07/2024. She states she was at the dog park with her dog in her arms when the dog jumped, making her hit the lateral aspect of the right foot. 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 Arthritis Surgical History Person who has undergone gender reassignment surgery Social History Alcohol intake: current Alcohol intake frequency: holidays/special occasions only Alcohol type: wine Patient Tobacco Use Status: Former Tobacco user Substance Use Type: Marijuana Current occupational status: disabled Current occupation: rt hand Review of Systems Const All systems reviewed & are unremarkable except as noted in HPI and below Physical Exam Const General: cooperative, healthy appearing and no acute distress Resp Effort & Inspection: normal respiratory effort and able to speak in complete sentences Cardio Rate: regular rate Peripheral pulses: Peripheral pulses 2+ throughout GI Palpation (GI): Soft to palpation Skin Lesions: no lesions Rashes: no rashes Extrem Other: Right foot/ankle: Normal to inspection. No ecchymosis, erythema, or edema. Mild tenderness to palpation over the base of the 5th metatarsal. Three small superficial abrasions over the lateral aspect lateral aspect proximal to the distal fibula. No surrounding erythema or drainage. No signs of infection. Patient is able to demonstrate dorsiflexion, plantar flexion, pronation and supination. Negative anterior drawer. Sensation intact. Pedal Pulse intact. Assessment & Plan Assessment & Plan (1) Right ankle sprain: Code(s): S93.401A - Sprain of unspecified ligament of right ankle, initial encounter Category: Medical Qualifiers: Encounter type: initial encounter Involved ligament of ankle: unspecified ligament Qualified Code(s): S93.401A - Sprain of unspecified ligament of right ankle, initial encounter Plan Ms. Faraz Ruth is a 38-year-old female who presents in the office today for an evaluation of right little toe pain. Patient reports ongoing pain in the right foot since 02/07/2024. She states she was at the dog park with her dog in her arms when the dog jumped, making her hit the lateral aspect of the right foot. Patient will be referred to physical therapy to work on strengthening of the right foot and ankle. Follow up will be PRN, or sooner if needed. X-rays of the right foot which were obtained while in the office today and were reviewed by me, Genevieve Lovell PA-C, revealed no acute fracture or dislocation. Orders: Orders XR foot RT min 3V Today M79.673 - Pain in unspecified foot PT Evaluation and Treatment Today S93.401A - Sprain of unspecified ligament of right ankle, initial encounter Patient Instructions: Scribed by Stephanie Nunez certified medical coder, for Genevieve Lovell PA-C on 02/29/2024 at 11:39 am, EST. Coding Level of Care Code Est Pt Level 3 (28325) Diagnoses Sprain of right ankle, unspecified ligament, initial encounter S93.401A Encounter type: initial encounter Involved ligament of ankle: unspecified ligament
== END 2024-02-29 12:03 | disposition home or self-care (01) ==
PROVIDERS: PCP Family Medicine; Visit Provider Physician Assistant
DX: S93.401A Sprain of unspecified ligament of right ankle, initial encounter (principal)
CPT/HCPCS: 99213

== ENCOUNTER 2024-03-25 10:54 | Outpatient (AMB) | payer OTHER, SELFPAY ==
--- NOTE | 2024-03-25 10:56 | MHC.OFFVIS ---
Vital Signs 03/25/24 11:03 Height 5 ft 7 in Weight 167 lb BMI 26.2 BP 117/74 Blood Pressure Location Rt brachial Position Sitting Pulse 62 Pulse Source Pulse Oximeter Pulse Oximetry (%) 96 Oxygen Delivery Method Room Air Intake Visit Reasons: PILL COUNT Intake Note: Cherri comes in today for a pill count to oxycodone-acetaminophen, patient should have 33 tablets and presents with 34 tablets which she last took last night 03/24/24 at 10:30pm. Pain today 04/27 [employer] Required: No Accompanied by: Self / Same As Patient Allergies cockroach Allergy (Verified 03/25/24 11:03) Rash feathers Allergy (Verified 03/25/24 11:03) Rash HPI Comments Details: Patient presents today for a pill count. Patient is supposed to have #33 pills and presents with #34 pills. This demonstrates a responsible attitude in regards to medication regimen. Patient reports adequate analgesia on current regimen with no noted side effects. Denies any fever, chills, unintentional weight loss, weakness, abdominal pain, sedation, nausea or dizziness except occasional constipation for which patient uses Miralax on as needed basis. Patient reports increasing right knee pain with walking and climbing stairs and is interested to receive intra-articular steroid injection. We will schedule this with fluoroscopy. Most recent knee x-ray imaging showed mild degenerative changes in the bilateral knees. 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 Arthritis Surgical History Person who has undergone gender reassignment surgery Social History Alcohol intake: current Alcohol intake frequency: holidays/special occasions only Alcohol type: wine Patient Tobacco Use Status: Former Tobacco user Substance Use Type: Marijuana Current occupational status: disabled Current occupation: rt hand Review of Systems Const All systems reviewed & are unremarkable except as noted in HPI and below Physical Exam Vital Signs: Last Vital Signs Pulse 62 03/25/24 11:03 BP 117/74 03/25/24 11:03 Pulse Ox 96 03/25/24 11:03 Oxygen Delivery Method Room Air 03/25/24 11:03 BMI result Body Mass Index 26.2 General: Appears afebrile. Alert and oriented. Mood and affect appropriate. Follows and participates in conversation appropriately. Respiratory effort is unlabored. No cough. Able to transition from sit to stand unassisted. Uses walker with walking. Ambulates with bilaterally normal heel strike and toe off. Extrem General: Yes capillary refill normal, Yes no clubbing, cyanosis or edema and Yes no calf tenderness Right lower extremity: knee Details: normal to inspection, tenderness Location: of the medial joint line and of the lateral joint line, normal ROM and crepitus; no swelling, no ecchymosis and no unusual warmth Psych Appearance: grossly normal Mental Status: mental status grossly normal Speech and movement: Normal speech and movement present and Clear speech present Affect: normal affect Attitude: cooperative Thought process: Normal thought process present Thought content: Normal thought content present, suicidality (none), no hallucinations and Depressive thoughts present Insight: Good insight present (Psych) Judgement: Good judgement present (Psych) Results Reviewed Results Reviewed: XR BILATERAL KNEES 12/14/23 CLINICAL INFORMATION: Pain in right knee. COMPARISON: April 02, 2022. FINDINGS: LEFT KNEE: Mild narrowing of the medial and patellofemoral compartments. Trace joint effusion. Redemonstration of separate fragment along the lateral upper aspect of the patella, similar to exam of 04/02/2022, possibly related to prior trauma versus normal variant, bipartite patella. RIGHT KNEE: Mild narrowing of the medial and patellofemoral compartments. Trace joint effusion. IMPRESSION: 1. Mild degenerative changes in the bilateral knees. 2. Redemonstration of separate fragment along the lateral upper aspect of the left patella, similar to exam of 04/02/2022, possibly related to prior trauma versus normal variant, bipartite patella. Assessment & Plan Assessment & Plan (1) Chronic pain syndrome: Code(s): G89.4 - Chronic pain syndrome Category: Medical (2) Chronic, continuous use of opioids: Code(s): F11.90 - Opioid use, unspecified, uncomplicated Category: Medical (3) Bilateral primary osteoarthritis of knee: Code(s): M17.0 - Bilateral primary osteoarthritis of knee Category: Medical (4) Bilateral knee pain: Code(s): M25.561 - Pain in right knee; M25.562 - Pain in left knee Category: Medical (5) Spondylosis of lumbar region without myelopathy or radiculopathy: Code(s): M47.816 - Spondylosis without myelopathy or radiculopathy, lumbar region Category: Medical Plan Patient has shown accountability for medication regimen and the pill count was accurate. The patient reports no noted side effects. There is no evidence of misuse, abuse or diversion at this time. [employer] reviewed. Prescription for Percocet 5-325 mg TID for 30 days sent on 04/05/24. Schedule right knee intra-articular steroid injection with local and fluoroscopy. Expectations, risks and benefits were reviewed. Patient is aware she will be contacted to schedule this procedure. All questions were answered and patient is in agreement of plan. Follow up in one month for a pill count and sooner if needed. Medications: Refilled oxycodone-acetaminophen 5-325 mg (Percocet) 1 tab PO TID 30 days PRN 90 tabs 0RF severe pain (scale score 7-10) G89.4 - Chronic pain syndrome, M43.06 - Spondylolysis, lumbar region, M46.1 - Sacroiliitis, not elsewhere classified Coding Level of Care Code Est Pt Level 4 (27519) Diagnoses Chronic pain syndrome G89.4 Chronic, continuous use of opioids F11.90 Bilateral primary osteoarthritis of knee M17.0 Bilateral knee pain M25.561; M25.562 Spondylosis of lumbar region without myelopathy or radiculopathy M47.816
[2024-03-25 11:03] VITALS: BP 117/74; PULSE 62; O2SAT 96; BMI 26.2
== END 2024-03-25 11:09 | disposition home or self-care (01) ==
PROVIDERS: PCP Family Medicine; Visit Provider Nurse Practitioner Family
DX: G89.4 Chronic pain syndrome (principal); M17.0 Bilateral primary osteoarthritis of knee; M25.561 Pain in right knee; Z79.891 Long term (current) use of opiate analgesic; M25.562 Pain in left knee; M47.816 Spondylosis without myelopathy or radiculopathy, lumbar region
CPT/HCPCS: 99214

== ENCOUNTER → 2024-03-25 10:54 | Outpatient (BNVA) | payer OTHER, SELFPAY | PROVIDERS: PCP Family Medicine; Visit Provider Nurse Practitioner Family | DX: M17.0 Bilateral primary osteoarthritis of knee (principal); M25.561 Pain in right knee; M25.562 Pain in left knee; G89.4 Chronic pain syndrome; M47.816 Spondylosis without myelopathy or radiculopathy, lumbar region; Z79.891 Long term (current) use of opiate analgesic | CPT/HCPCS: 99212 ==

== ENCOUNTER 2024-04-25 12:59 | Outpatient (AMB) | payer OTHER, SELFPAY ==
--- NOTE | 2024-04-25 13:01 | MHC.OFFVIS ---
Vital Signs 04/25/24 13:14 Height 5 ft 7 in Weight 166 lb BMI 26.0 BP 129/74 Blood Pressure Location Rt brachial Position Sitting Pulse 74 Pulse Source Pulse Oximeter Pulse Oximetry (%) 97 Oxygen Delivery Method Room Air Intake Visit Reasons: PILL COUNT Intake Note: Cherri comes in today for a pill count to oxycodone-acetaminophen, patient should have 27 tablets and presents with 30 tablets which she last took today 04/25/24 at 10am. Pain today 02/25 [employer] Required: No Accompanied by: Self / Same As Patient Allergies cockroach Allergy (Verified 04/25/24 13:14) Rash feathers Allergy (Verified 04/25/24 13:14) Rash HPI Comments Details: Patient presents today for a pill count. Patient is supposed to have #27 pills and presents with #30 pills. This demonstrates a responsible attitude in regards to medication regimen. Patient reports adequate analgesia on current regimen with no noted side effects. Denies any fever, chills, unintentional weight loss, weakness, abdominal pain, sedation, nausea or dizziness except occasional constipation for which patient uses Miralax on as needed basis. 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 Arthritis Surgical History Person who has undergone gender reassignment surgery Social History Alcohol intake: current Alcohol intake frequency: holidays/special occasions only Alcohol type: wine Patient Tobacco Use Status: Former Tobacco user Substance Use Type: Marijuana Current occupational status: disabled Current occupation: rt hand Review of Systems Const All systems reviewed & are unremarkable except as noted in HPI and below Physical Exam Vital Signs: Last Vital Signs Pulse 74 04/25/24 13:14 BP 129/74 04/25/24 13:14 Pulse Ox 97 04/25/24 13:14 Oxygen Delivery Method Room Air 04/25/24 13:14 BMI result Body Mass Index 26.0 General: Appears afebrile. Alert and oriented. Mood and affect appropriate. Follows and participates in conversation appropriately. Respiratory effort is unlabored. No cough. Able to transition from sit to stand unassisted. Uses walker with walking. Ambulates with bilaterally normal heel strike and toe off. Extrem General: Yes capillary refill normal, Yes no clubbing, cyanosis or edema and Yes no calf tenderness Psych Appearance: grossly normal Mental Status: mental status grossly normal Speech and movement: Normal speech and movement present and Clear speech present Affect: normal affect Attitude: cooperative Thought process: Normal thought process present Thought content: Normal thought content present, suicidality (none), no hallucinations and Depressive thoughts present Insight: Good insight present (Psych) Judgement: Good judgement present (Psych) Results Reviewed Results Reviewed: XR BILATERAL KNEES 12/14/23 CLINICAL INFORMATION: Pain in right knee. COMPARISON: April 02, 2022. FINDINGS: LEFT KNEE: Mild narrowing of the medial and patellofemoral compartments. Trace joint effusion. Redemonstration of separate fragment along the lateral upper aspect of the patella, similar to exam of 04/02/2022, possibly related to prior trauma versus normal variant, bipartite patella. RIGHT KNEE: Mild narrowing of the medial and patellofemoral compartments. Trace joint effusion. IMPRESSION: 1. Mild degenerative changes in the bilateral knees. 2. Redemonstration of separate fragment along the lateral upper aspect of the left patella, similar to exam of 04/02/2022, possibly related to prior trauma versus normal variant, bipartite patella. Assessment & Plan Assessment & Plan (1) Chronic pain syndrome: Code(s): G89.4 - Chronic pain syndrome Category: Medical (2) Chronic, continuous use of opioids: Code(s): F11.90 - Opioid use, unspecified, uncomplicated Category: Medical (3) Bilateral primary osteoarthritis of knee: Code(s): M17.0 - Bilateral primary osteoarthritis of knee Category: Medical (4) Spondylosis of lumbar region without myelopathy or radiculopathy: Code(s): M47.816 - Spondylosis without myelopathy or radiculopathy, lumbar region Category: Medical (5) Polyarthralgia: Code(s): M25.50 - Pain in unspecified joint Category: Medical Plan Patient has shown accountability for medication regimen and the pill count was accurate. The patient reports no noted side effects. There is no evidence of misuse, abuse or diversion at this time. [employer] reviewed. Prescription for Percocet 5-325 mg TID for 30 days sent on 05/04/24. All questions were answered and patient is in agreement of plan. Follow up in one month for a pill count and sooner if needed. Medications: Refilled oxycodone-acetaminophen 5-325 mg (Percocet) 1 tab PO TID 30 days PRN 90 tabs 0RF severe pain (scale score 7-10) G89.4 - Chronic pain syndrome, M43.06 - Spondylolysis, lumbar region, M46.1 - Sacroiliitis, not elsewhere classified Coding Level of Care Code Est Pt Level 4 (42192) Diagnoses Chronic pain syndrome G89.4 Chronic, continuous use of opioids F11.90 Bilateral primary osteoarthritis of knee M17.0 Spondylosis of lumbar region without myelopathy or radiculopathy M47.816 Polyarthralgia M25.50
[2024-04-25 13:14] VITALS: BP 129/74; PULSE 74; O2SAT 97; BMI 26.0
== END 2024-04-25 13:31 | disposition home or self-care (01) ==
PROVIDERS: PCP Family Medicine; Visit Provider Nurse Practitioner Family
DX: G89.4 Chronic pain syndrome (principal); M17.0 Bilateral primary osteoarthritis of knee; M47.816 Spondylosis without myelopathy or radiculopathy, lumbar region; Z79.891 Long term (current) use of opiate analgesic; M25.50 Pain in unspecified joint
CPT/HCPCS: 99214

== ENCOUNTER → 2024-04-25 12:59 | Outpatient (BNVA) | payer OTHER, SELFPAY | PROVIDERS: PCP Family Medicine; Visit Provider Nurse Practitioner Family | DX: G89.4 Chronic pain syndrome (principal); M17.0 Bilateral primary osteoarthritis of knee; M47.816 Spondylosis without myelopathy or radiculopathy, lumbar region; M25.50 Pain in unspecified joint; Z79.891 Long term (current) use of opiate analgesic | CPT/HCPCS: 99212 ==

== ENCOUNTER 2024-05-23 12:51 | Outpatient (AMB) | payer OTHER, SELFPAY ==
--- NOTE | 2024-05-23 13:01 | A.OFFVIS_ITS ---
Vital Signs 05/23/24 13:08 Height 5 ft 7 in Weight 167 lb BMI 26.2 BP 124/95 H Blood Pressure Location Lt brachial Position Sitting Pulse 70 Pulse Source Pulse Oximeter Pulse Oximetry (%) 99 Oxygen Delivery Method Room Air Intake Visit Reasons: PILL COUNT Intake Note: Cherri comes in today for a pill count to oxycodone-acetaminophen, patient should have 30 tablets and presents with 37 tablets which she last took last night 05/22/24 at 10pm. Pain today 05/28. [employer] Required: No Accompanied by: Self / Same As Patient Allergies cockroach Allergy (Verified 05/23/24 13:09) Rash feathers Allergy (Verified 05/23/24 13:09) Rash HPI Comments Details: Patient presents today for a pill count. Patient is supposed to have #30 pills and presents with #37 pills. This demonstrates a responsible attitude in regards to medication regimen. Patient reports adequate analgesia on current regimen with no noted side effects. Denies any fever, chills, unintentional weight loss, weakness, abdominal pain, sedation, nausea or dizziness except occasional constipation for which patient uses Miralax on as needed basis. Patient reports she tripped on the way to today's appointment today and on her knees. Denies any injury and presents with mild redness to anterior aspects of her knees. Patient reports she usually uses walker for ambulation and has been utilizing cane today. Patient reports she will monitor her knee for any worsening symptoms and apply ice at home and notify our office or PCP if her symptoms worsens. 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 Arthritis Surgical History Person who has undergone gender reassignment surgery Social History Alcohol intake: current Alcohol intake frequency: holidays/special occasions only Alcohol type: wine Patient Tobacco Use Status: Former Tobacco user Substance Use Type: Marijuana Current occupational status: disabled Current occupation: rt hand Review of Systems Const All systems reviewed & are unremarkable except as noted in HPI and below Physical Exam Vital Signs: Last Vital Signs Pulse 70 05/23/24 13:08 BP 124/95 H 05/23/24 13:08 Pulse Ox 99 05/23/24 13:08 Oxygen Delivery Method Room Air 05/23/24 13:08 BMI result Body Mass Index 26.2 General: Appears afebrile. Alert and oriented. Mood and affect appropriate. Follows and participates in conversation appropriately. Respiratory effort is unlabored. No cough. Able to transition from sit to stand unassisted. Uses walker with walking. Ambulates with bilaterally normal heel strike and toe off. Extrem General: Yes capillary refill normal, Yes no clubbing, cyanosis or edema and Yes no calf tenderness Psych Appearance: grossly normal Mental Status: mental status grossly normal Speech and movement: Normal speech and movement present and Clear speech present Affect: normal affect Attitude: cooperative Thought process: Normal thought process present Thought content: Normal thought content present, suicidality (none), no hallucinations and Depressive thoughts present Insight: Good insight present (Psych) Judgement: Good judgement present (Psych) Results Reviewed Results Reviewed: XR BILATERAL KNEES 12/14/23 CLINICAL INFORMATION: Pain in right knee. COMPARISON: April 02, 2022. FINDINGS: LEFT KNEE: Mild narrowing of the medial and patellofemoral compartments. Trace joint effusion. Redemonstration of separate fragment along the lateral upper aspect of the patella, similar to exam of 04/02/2022, possibly related to prior trauma versus normal variant, bipartite patella. RIGHT KNEE: Mild narrowing of the medial and patellofemoral compartments. Trace joint effusion. IMPRESSION: 1. Mild degenerative changes in the bilateral knees. 2. Redemonstration of separate fragment along the lateral upper aspect of the left patella, similar to exam of 04/02/2022, possibly related to prior trauma versus normal variant, bipartite patella. Assessment & Plan Assessment & Plan (1) Chronic pain syndrome: Code(s): G89.4 - Chronic pain syndrome Category: Medical (2) Chronic, continuous use of opioids: Code(s): F11.90 - Opioid use, unspecified, uncomplicated Category: Medical (3) Bilateral primary osteoarthritis of knee: Code(s): M17.0 - Bilateral primary osteoarthritis of knee Category: Medical (4) Spondylosis of lumbar region without myelopathy or radiculopathy: Code(s): M47.816 - Spondylosis without myelopathy or radiculopathy, lumbar region Category: Medical (5) Polyarthralgia: Code(s): M25.50 - Pain in unspecified joint Category: Medical (6) Bilateral knee pain: Code(s): M25.561 - Pain in right knee; M25.562 - Pain in left knee Category: Medical Plan Patient has shown accountability for medication regimen and the pill count was accurate. The patient reports no noted side effects. There is no evidence of misuse, abuse or diversion at this time. [email or web address] reviewed. Prescription for Percocet 5-325 mg TID for 30 days sent on 06/04/24. Narcan sent today as well as patient reports she misplaced it at home and could not find it. All questions were answered and patient is in agreement of plan. Follow up in one month for a pill count and sooner if needed. Medications: Refilled naloxone 4 mg/actuation (Narcan) spray 1 dose into ONE nostril; alternate nostrils w each dose until help arrives 4 mg intranasal Q2M PRN 2 ea 0RF opioid overdose oxycodone-acetaminophen 5-325 mg (Percocet) 1 tab PO TID PRN 90 tabs 0RF severe pain (scale score 7-10) 30 days G89.4 - Chronic pain syndrome, M43.06 - Spondylolysis, lumbar region, M46.1 - Sacroiliitis, not elsewhere classified Coding Level of Care Code Est Pt Level 4 (74965) Diagnoses Chronic pain syndrome G89.4 Chronic, continuous use of opioids F11.90 Bilateral primary osteoarthritis of knee M17.0 Spondylosis of lumbar region without myelopathy or radiculopathy M47.816 Polyarthralgia M25.50 Bilateral knee pain M25.561; M25.562
[2024-05-23 13:08] VITALS: BP 124/95; PULSE 70; O2SAT 99; BMI 26.2
== END 2024-05-23 13:17 | disposition home or self-care (01) ==
PROVIDERS: PCP Family Medicine; Visit Provider Nurse Practitioner Family
DX: G89.4 Chronic pain syndrome (principal); M17.0 Bilateral primary osteoarthritis of knee; M47.816 Spondylosis without myelopathy or radiculopathy, lumbar region; Z79.891 Long term (current) use of opiate analgesic; M25.50 Pain in unspecified joint; M25.561 Pain in right knee; M25.562 Pain in left knee
CPT/HCPCS: 99214

== ENCOUNTER → 2024-05-23 12:51 | Outpatient (BNVA) | payer OTHER, SELFPAY | PROVIDERS: PCP Family Medicine; Visit Provider Nurse Practitioner Family | DX: G89.4 Chronic pain syndrome (principal); M17.0 Bilateral primary osteoarthritis of knee; M47.816 Spondylosis without myelopathy or radiculopathy, lumbar region; M25.50 Pain in unspecified joint; F11.90 Opioid use, unspecified, uncomplicated; Z51.81 Encounter for therapeutic drug level monitoring | CPT/HCPCS: 99212 ==

== ENCOUNTER 2024-05-26 14:13 | Outpatient (REF) | payer OTHER, SELFPAY ==
--- NOTE | ~2024-05-26 | MM_ITS ---
EXAMINATION: MM SCREENING DIGITAL BREAST TOMOSYNTHESIS, BILATERAL category D CLINICAL INFORMATION: Screening. Asymptomatic. COMPARISON: Mammography: This study is compared with the prior mammogram from 2022. TECHNIQUE: Digital breast tomosynthesis is performed in both the craniocaudal and mediolateral oblique views along with computer-aided detection (CAD). Direct 2-D mammographic images are also obtained. FINDINGS: The breasts are extremely dense, which lowers the sensitivity of mammography (ACR BI-RADS breast composition Category d). There are bilateral, mammographically intact silicone breast implants. There are no significant masses, abnormal calcifications, or other abnormalities. MM/MM tomosynthesis screen imp BI IMPRESSION: No mammographic evidence of malignancy. ASSESSMENT: BI-RADS BI-RADS 1 - Negative RECOMMENDATION: Routine annual mammography screening. 1 year F/U This examination should not preclude the clinical evaluation of a suspicious palpable abnormality. This patient's information was entered into a reminder system with a target due date for their next mammogram. Electronically signed by: Francisca Lafleur MD 06/23/2024 11:57 AM EDT
== END 2024-05-26 14:14 | disposition home or self-care (01) ==
LOC: HO.MAMMO 14:13
PROVIDERS: PCP Family Medicine; Visit Provider Family Medicine
DX: Z12.31 Encounter for screening mammogram for malignant neoplasm of breast (principal)
CPT/HCPCS: 77063; 77067

== ENCOUNTER → 2024-05-26 14:45 | Outpatient (BNV) | payer OTHER, SELFPAY | PROVIDERS: PCP Family Medicine; Visit Provider Radiology Diagnostic Radiology | DX: Z12.31 Encounter for screening mammogram for malignant neoplasm of breast (principal) | CPT/HCPCS: 77063; 77067 ==

== ENCOUNTER 2024-06-23 13:51 | Outpatient (AMB) | payer OTHER, SELFPAY ==
--- NOTE | 2024-06-23 13:51 | A.OFFVIS_ITS ---
"Vital Signs 06/23/24 14:02 Height 5 ft 7 in Weight 170 lb BMI 26.6 BP 122/72 Blood Pressure Location Lt brachial Position Sitting Respiration 17 Pulse 70 Pulse Source Pulse Oximeter Pulse Oximetry (%) 98 Oxygen Delivery Method Room Air Intake Visit Reasons: PILL COUNT Intake Note: Patient comes in for pill count. Allergies cockroach Allergy (Verified 06/23/24 14:03) Rash feathers Allergy (Verified 06/23/24 14:03) Rash HPI Comments Details: Patient presents today for a pill count. Patient is supposed to have #30 pills and presents with #33 pills. This demonstrates a responsible attitude in regards to medication regimen. Patient reports adequate analgesia on current regimen with no noted side effects. Patient reports current opioid regime allows patient to be less symptomatic and more functional. Denies any fever, chills, unintentional weight loss, weakness, abdominal pain, sedation, nausea or dizziness except occasional constipation for which patient uses Miralax on as needed basis. 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 Arthritis Surgical History Person who has undergone gender reassignment surgery Social History Alcohol intake: current Alcohol intake frequency: holidays/special occasions only Alcohol type: wine Patient Tobacco Use Status: Former Tobacco user Substance Use Type: Marijuana Current occupational status: disabled Current occupation: rt hand Review of Systems Const All systems reviewed & are unremarkable except as noted in HPI and below Reports as per HPI, Denies body aches, Denies chills, Reports difficulty sleeping, Reports fatigue, Denies fever(s), Denies frequent falls, Denies malaise, Denies night sweats and Denies weight loss Neuro Denies frequent falls Endo Reports fatigue Physical Exam Vital Signs: Last Vital Signs Pulse 70 06/23/24 14:02 Resp 17 06/23/24 14:02 BP 122/72 06/23/24 14:02 Pulse Ox 98 06/23/24 14:02 Oxygen Delivery Method Room Air 06/23/24 14:02 BMI result Body Mass Index 26.6 General: Appears afebrile. Alert and oriented. Mood and affect appropriate. Follows and participates in conversation appropriately. Respiratory effort is unlabored. No cough. Able to transition from sit to stand unassisted. Uses walker with walking. Ambulates with bilaterally normal heel strike and toe off. Extrem General: Yes capillary refill normal, Yes no clubbing, cyanosis or edema and Yes no calf tenderness Psych Appearance: grossly normal Mental Status: mental status grossly normal Speech and movement: Normal speech and movement present and Clear speech present Affect: normal affect Attitude: cooperative Thought process: Normal thought process present Thought content: Normal thought content present, suicidality (none), no hallucinations and Depressive thoughts present Insight: Good insight present (Psych) Judgement: Good judgement present (Psych) Results Reviewed Results Reviewed: XR BILATERAL KNEES 12/14/23 CLINICAL INFORMATION: Pain in right knee. COMPARISON: April 02, 2022. FINDINGS: LEFT KNEE: Mild narrowing of the medial and patellofemoral compartments. Trace joint effusion. Redemonstration of separate fragment along the lateral upper aspect of the patella, similar to exam of 04/02/2022, possibly related to prior trauma versus normal variant, bipartite patella. RIGHT KNEE: Mild narrowing of the medial and patellofemoral compartments. Trace joint effusion. IMPRESSION: 1. Mild degenerative changes in the bilateral knees. 2. Redemonstration of separate fragment along the lateral upper aspect of the left patella, similar to exam of 04/02/2022, possibly related to prior trauma versus normal variant, bipartite patella. Assessment & Plan Assessment & Plan (1) Chronic pain syndrome: Code(s): G89.4 - Chronic pain syndrome Category: Medical (2) Chronic, continuous use of opioids: Code(s): F11.90 - Opioid use, unspecified, uncomplicated Category: Medical (3) Bilateral primary osteoarthritis of knee: Code(s): M17.0 - Bilateral primary osteoarthritis of knee Category: Medical (4) Spondylosis of lumbar region without myelopathy or radiculopathy: Code(s): M47.816 - Spondylosis without myelopathy or radiculopathy, lumbar region Category: Medical (5) Polyarthralgia: Code(s): M25.50 - Pain in unspecified joint Category: Medical (6) Bilateral knee pain: Code(s): M25.561 - Pain in right knee; M25.562 - Pain in left knee Category: Medical Plan Patient has shown accountability for medication regimen and the pill count was accurate. The patient reports no noted side effects. There is no evidence of misuse, abuse or diversion at this time. Traveler | [facility] reviewed. Prescription for Percocet 5-325 mg TID for 30 days sent on 07/12/24. Patient has Narcan at home. All questions were answered and patient is in agreement of plan. Follow up in one month for a pill count and sooner if needed. Medications: Changed From gabapentin 300 mg PO BID 30 days 60 caps 3RF for pain F1.90 - Opioid use, unspecified, uncomplicated, M25.561 - Pain in right knee, M25.562 - Pain in left knee, M47.816 - Spondylosis without myelopathy or radiculopathy, lumbar region To gabapentin 300 mg (3 x 100 mg) PO BID 180 caps 0RF pain 30 days F1.90 - Opioid use, unspecified, uncomplicated, M25.561 - Pain in right knee, M25.562 - Pain in left knee, M47.816 - Spondylosis without myelopathy or radiculopathy, lumbar region Refilled oxycodone-acetaminophen 5-325 mg (Percocet) 1 tab PO TID 30 days PRN 90 tabs 0RF severe pain (scale score 7-10) G89.4 - Chronic pain syndrome, M43.06 - Spondylolysis, lumbar region, M46.1 - Sacroiliitis, not elsewhere classified oxycodone-acetaminophen 5-325 mg (Percocet) 1 tab PO TID PRN 90 tabs 0RF severe pain (scale score 7-10) 30 days G89.4 - Chronic pain syndrome, M43.06 - Spondylolysis, lumbar region, M46.1 - Sacroiliitis, not elsewhere classified Coding Level of Care Code Est Pt Level 4 (62002) Complex EM visit Add On G2211 Diagnoses Chronic pain syndrome G89.4 Chronic, continuous use of opioids F1 Bilateral primary osteoarthritis of knee M17.0 Spondylosis of lumbar region without myelopathy or radiculopathy M47.816 Polyarthralgia M25.50 Bilateral knee pain M25.561; M25.562"
[2024-06-23 14:02] VITALS: BP 122/72; PULSE 70; RESP 17; O2SAT 98; BMI 26.6
== END 2024-06-23 14:18 | disposition home or self-care (01) ==
PROVIDERS: PCP Family Medicine; Visit Provider Nurse Practitioner Family
DX: G89.4 Chronic pain syndrome (principal); M17.0 Bilateral primary osteoarthritis of knee; Z79.891 Long term (current) use of opiate analgesic; M47.816 Spondylosis without myelopathy or radiculopathy, lumbar region; M25.50 Pain in unspecified joint; M25.561 Pain in right knee; M25.562 Pain in left knee
CPT/HCPCS: 99214; G2211

== ENCOUNTER → 2024-06-23 13:51 | Outpatient (BNVA) | payer OTHER, SELFPAY | PROVIDERS: PCP Family Medicine; Visit Provider Nurse Practitioner Family | DX: G89.4 Chronic pain syndrome (principal); M25.561 Pain in right knee; M25.562 Pain in left knee; M17.0 Bilateral primary osteoarthritis of knee; M25.50 Pain in unspecified joint; M47.816 Spondylosis without myelopathy or radiculopathy, lumbar region; Z79.891 Long term (current) use of opiate analgesic; Z51.81 Encounter for therapeutic drug level monitoring | CPT/HCPCS: 99212 ==

== ENCOUNTER 2024-07-21 13:27 | Outpatient (AMB) | payer OTHER, SELFPAY ==
--- NOTE | 2024-07-21 13:41 | MHC.OFFVIS ---
Vital Signs 07/21/24 14:06 Height 5 ft 7 in BP 134/83 Blood Pressure Location Lt brachial Position Sitting Pulse 110 H Pulse Source Pulse Oximeter Pulse Oximetry (%) 100 Oxygen Delivery Method Room Air Intake Visit Reasons: PILL COUNT Intake Note: Cherri comes in today for a pill count to oxycodone-acetaminophen, patient should have 36 tablets and presents with 39 tablets which she last took today 07/21/24 at 12pm. Pain today 7.5/10 Heat Regulator Required: No Accompanied by: Self / Same As Patient Allergies cockroach Allergy (Verified 07/21/24 14:06) Rash feathers Allergy (Verified 07/21/24 14:06) Rash HPI Comments Details: Patient presents today for a pill count. Patient is supposed to have #36 pills and presents with #39 pills. This demonstrates a responsible attitude in regards to medication regimen. Patient reports adequate analgesia on current regimen with no noted side effects. Patient reports previous medication refill date was entered incorrectly by me and this has been devastating to patient mentally and emotionally. We reviewed her notification to our office on 07/01/24 to correct refill date to 07/04/24 instead of 07/12/24. [facility]. Patient stated concerns for not getting my medications on time. I was apologetic to patient and emphasized and encouraged her to notify our office for any concerns for her medication refill or any other concerns as patient did on 07/01/24. Patient reports current opioid regime does not provide adequate analgesia but allows her to be less symptomatic and more functional. Denies any fever, chills, unintentional weight loss, weakness, abdominal pain, sedation, nausea or dizziness except occasional constipation for which patient uses Miralax on as needed basis. Patient starts Pelvic Floor physical therapy on 08/05/24. Patient reports increasing numbness and tingling in both feet. 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 Arthritis Surgical History Person who has undergone gender reassignment surgery Social History Alcohol intake: current Alcohol intake frequency: holidays/special occasions only Alcohol type: wine Patient Tobacco Use Status: Former Tobacco user Substance Use Type: Marijuana Current occupational status: disabled Current occupation: rt hand Review of Systems Const All systems reviewed & are unremarkable except as noted in HPI and below Physical Exam Vital Signs: Last Vital Signs Pulse 110 H 07/21/24 14:06 BP 134/83 07/21/24 14:06 Pulse Ox 100 07/21/24 14:06 Oxygen Delivery Method Room Air 07/21/24 14:06 General: Appears afebrile. Alert and oriented. Mood and affect appropriate. Follows and participates in conversation appropriately. Respiratory effort is unlabored. No cough. Able to transition from sit to stand unassisted. Uses cane with ambulation. Ambulates with bilaterally normal heel strike and toe off. Extrem General: Yes capillary refill normal, Yes no clubbing, cyanosis or edema and Yes no calf tenderness Psych Appearance: grossly normal Speech and movement: Normal speech and movement present and Pressured speech present Affect: Sad affect present and Hostile affect present Attitude: cooperative Thought process: Normal thought process present and Circumstantial thought process present Thought content: Normal thought content present, suicidality (none), no hallucinations and Depressive thoughts present Insight: Good insight present (Psych) Judgement: Good judgement present (Psych) Assessment & Plan Assessment & Plan (1) Chronic pain syndrome: Code(s): G89.4 - Chronic pain syndrome Category: Medical (2) Chronic, continuous use of opioids: Code(s): F11.90 - Opioid use, unspecified, uncomplicated Category: Medical (3) Bilateral primary osteoarthritis of knee: Code(s): M17.0 - Bilateral primary osteoarthritis of knee Category: Medical (4) Spondylosis of lumbar region without myelopathy or radiculopathy: Code(s): M47.816 - Spondylosis without myelopathy or radiculopathy, lumbar region Category: Medical (5) Polyarthralgia: Code(s): M25.50 - Pain in unspecified joint Category: Medical (6) Bilateral knee pain: Code(s): M25.561 - Pain in right knee; M25.562 - Pain in left knee Category: Medical Plan Patient has shown accountability for medication regimen and the pill count was accurate. The patient reports no noted side effects. There is no evidence of misuse, abuse or diversion at this time. [facility] reviewed. Prescription for Percocet 5-325 mg TID for 30 days sent on 08/02/24. Patient has Narcan at home. All questions were answered and patient is in agreement of plan. Follow up in one month for a pill count in 4 weeks and sooner if needed. Medications: Refilled oxycodone-acetaminophen 5-325 mg (Percocet) 1 tab PO TID 30 days PRN 90 tabs 0RF severe pain (scale score 7-10) G89.4 - Chronic pain syndrome, M43.06 - Spondylolysis, lumbar region, M46.1 - Sacroiliitis, not elsewhere classified gabapentin 300 mg (3 x 100 mg) PO BID 30 days 180 caps 0RF pain F11.90 - Opioid use, unspecified, uncomplicated, M25.561 - Pain in right knee, M25.562 - Pain in left knee, M47.816 - Spondylosis without myelopathy or radiculopathy, lumbar region Coding Level of Care Code Est Pt Level 4 (86136) Complex EM visit Add On G2211 Diagnoses Chronic pain syndrome G89.4 Chronic, continuous use of opioids F11.90 Bilateral primary osteoarthritis of knee M17.0 Spondylosis of lumbar region without myelopathy or radiculopathy M47.816 Polyarthralgia M25.50 Bilateral knee pain M25.561; M25.562
[2024-07-21 14:06] VITALS: BP 134/83; PULSE 110; O2SAT 100
== END 2024-07-21 14:55 | disposition home or self-care (01) ==
PROVIDERS: PCP Family Medicine; Visit Provider Nurse Practitioner Family
DX: G89.4 Chronic pain syndrome (principal); M17.0 Bilateral primary osteoarthritis of knee; M47.816 Spondylosis without myelopathy or radiculopathy, lumbar region; Z79.891 Long term (current) use of opiate analgesic; M25.50 Pain in unspecified joint; M25.561 Pain in right knee; M25.562 Pain in left knee
CPT/HCPCS: 99214; G2211

== ENCOUNTER → 2024-07-21 13:27 | Outpatient (BNVA) | payer OTHER, SELFPAY | PROVIDERS: PCP Family Medicine; Visit Provider Nurse Practitioner Family | DX: G89.4 Chronic pain syndrome (principal); M17.0 Bilateral primary osteoarthritis of knee; M47.816 Spondylosis without myelopathy or radiculopathy, lumbar region; M25.50 Pain in unspecified joint; M25.561 Pain in right knee; M25.562 Pain in left knee; F11.90 Opioid use, unspecified, uncomplicated; Z51.81 Encounter for therapeutic drug level monitoring | CPT/HCPCS: 99212 ==

== ENCOUNTER 2024-08-15 13:00 | Outpatient (AMB) | payer OTHER, SELFPAY ==
--- NOTE | 2024-08-15 13:29 | A.OFFVIS_ITS ---
Vital Signs 08/15/24 13:37 Height 5 ft 7 in Weight 180 lb BMI 28.2 BP 125/90 H Blood Pressure Location Lt brachial Position Sitting Respiration 16 Pulse 102 H Pulse Source Pulse Oximeter Pulse Oximetry (%) 100 Oxygen Delivery Method Room Air Intake Visit Reasons: F/U with new provider Intake Note: Patient comes in for follow up. Reports pain 5-6. Allergies cockroach Allergy (Verified 08/15/24 13:38) Rash feathers Allergy (Verified 08/15/24 13:38) Rash HPI Comments Details: Judgment is in my office today to establish new provider care. She reports her pain today 5 to 6/10. She reports most of the pain in bilateral knees, pain in the lower back, also pain in the area of the private parts where she had gender reassignment surgery. She was issued new form of pills. However the pills are appropriate and were verified with the prescription label. She reports that opioid medications allow her to be more active perform better activities of daily living do better with social interactions. Denies any fever, chills, unintentional weight loss, weakness, abdominal pain, sedation, nausea or dizziness except occasional constipation for which patient uses Miralax on as needed basis. She started Pelvic Floor physical therapy on 08/05/24. Patient reports increasing numbness and tingling in both feet. 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 Arthritis Surgical History Person who has undergone gender reassignment surgery Social History Alcohol intake: current Alcohol intake frequency: holidays/special occasions only Alcohol type: wine Patient Tobacco Use Status: Former Tobacco user Substance Use Type: Marijuana Current occupational status: disabled Current occupation: rt hand Review of Systems Const All systems reviewed & are unremarkable except as noted in HPI and below Physical Exam Vital Signs: Last Vital Signs Pulse 102 H 08/15/24 13:37 Resp 16 08/15/24 13:37 BP 125/90 H 08/15/24 13:37 Pulse Ox 100 08/15/24 13:37 Oxygen Delivery Method Room Air 08/15/24 13:37 BMI result Body Mass Index 28.2 General: Appears afebrile. Alert and oriented. Mood and affect appropriate. Follows and participates in conversation appropriately. Respiratory effort is unlabored. No cough. Able to transition from sit to stand unassisted. Uses cane with ambulation. Ambulates with bilaterally normal heel strike and toe off. General: Yes no CVA tenderness Back/Spine/Pelvis Back: no CVA tenderness Thoracic/Lumbar Spine: thoracic and lumbar spine normal to inspection Extrem General: Yes capillary refill normal, Yes no clubbing, cyanosis or edema and Yes no calf tenderness Psych Appearance: grossly normal Speech and movement: Normal speech and movement present and Pressured speech present Affect: Sad affect present and Hostile affect present Attitude: cooperative Thought process: Normal thought process present and Circumstantial thought process present Thought content: Normal thought content present, suicidality (none) and no hallucinations Insight: Good insight present (Psych) Judgement: Good judgement present (Psych) Results Reviewed Results Reviewed: XR BILATERAL KNEES 12/14/23 CLINICAL INFORMATION: Pain in right knee. COMPARISON: April 02, 2022. FINDINGS: LEFT KNEE: Mild narrowing of the medial and patellofemoral compartments. Trace joint effusion. Redemonstration of separate fragment along the lateral upper aspect of the patella, similar to exam of 04/02/2022, possibly related to prior trauma versus normal variant, bipartite patella. RIGHT KNEE: Mild narrowing of the medial and patellofemoral compartments. Trace joint effusion. IMPRESSION: 1. Mild degenerative changes in the bilateral knees. 2. Redemonstration of separate fragment along the lateral upper aspect of the left patella, similar to exam of 04/02/2022, possibly related to prior trauma versus normal variant, bipartite patella. Assessment & Plan Assessment & Plan (1) Chronic pain syndrome: Code(s): G89.4 - Chronic pain syndrome Category: Medical (2) Chronic, continuous use of opioids: Code(s): F11.90 - Opioid use, unspecified, uncomplicated Category: Medical (3) Bilateral primary osteoarthritis of knee: Code(s): M17.0 - Bilateral primary osteoarthritis of knee Category: Medical (4) Spondylosis of lumbar region without myelopathy or radiculopathy: Code(s): M47.816 - Spondylosis without myelopathy or radiculopathy, lumbar region Category: Medical (5) Polyarthralgia: Code(s): M25.50 - Pain in unspecified joint Category: Medical (6) Bilateral knee pain: Code(s): M25.561 - Pain in right knee; M25.562 - Pain in left knee Category: Medical Plan She picked up the prescription on 08/02/2024. Her next pill count with scheduled in 1 month. She is starting physical therapy for pelvic floor. Coding Level of Care Code Est Pt Level 3 (77008) Diagnoses Chronic pain syndrome G89.4 Chronic, continuous use of opioids F11.90 Bilateral primary osteoarthritis of knee M17.0 Spondylosis of lumbar region without myelopathy or radiculopathy M47.816 Polyarthralgia M25.50 Bilateral knee pain M25.561; M25.562
[2024-08-15 13:37] VITALS: BP 125/90; PULSE 102; RESP 16; O2SAT 100; BMI 28.2
== END 2024-08-15 13:53 | disposition home or self-care (01) ==
LOC: HO.PMC 13:01
PROVIDERS: PCP Family Medicine; Visit Provider Anesthesiology
DX: G89.4 Chronic pain syndrome (principal); Z79.891 Long term (current) use of opiate analgesic; M17.0 Bilateral primary osteoarthritis of knee; M47.816 Spondylosis without myelopathy or radiculopathy, lumbar region; M25.50 Pain in unspecified joint; M25.561 Pain in right knee; M25.562 Pain in left knee
CPT/HCPCS: 99213

== ENCOUNTER → 2024-08-15 13:00 | Outpatient (BNVA) | payer OTHER, SELFPAY | PROVIDERS: PCP Family Medicine; Visit Provider Anesthesiology | DX: M25.561 Pain in right knee (principal); M25.562 Pain in left knee; G89.4 Chronic pain syndrome; M17.0 Bilateral primary osteoarthritis of knee; M47.816 Spondylosis without myelopathy or radiculopathy, lumbar region; F11.90 Opioid use, unspecified, uncomplicated | CPT/HCPCS: 99212 ==

== ENCOUNTER 2024-08-31 13:50 | Outpatient (AMB) | payer OTHER, SELFPAY ==
--- NOTE | 2024-08-31 14:02 | A.OFFVIS_ITS ---
Vital Signs 08/31/24 14:15 Height 5 ft 7 in Weight 179 lb BMI 28.0 BP 126/82 Blood Pressure Location Lt brachial Position Sitting Respiration 16 Pulse 78 Pulse Source Pulse Oximeter Pulse Oximetry (%) 97 Oxygen Delivery Method Room Air Intake Visit Reasons: PILL COUNT Intake Note: Patient comes in for pill count. Reports pain 05/28. Allergies cockroach Allergy (Verified 08/31/24 14:16) Rash feathers Allergy (Verified 08/31/24 14:16) Rash HPI Comments Details: Arleth is here for the follow-up and pill count. She reports pain today more severe than usual 05/28. She reports that opioid medications helps her pain. She denies side effects of the opioid medications. She reports that she is starting physical therapy for her pelvic floor. Pill count today: She supposed to have no pills in her possession. She came with 6 pills in her possession. Her pill count is correct. To shift her prescription medication count to midcycle I will invite her for the appointment in 3 weeks. She reports that opioid medications allow her to be more active perform better activities of daily living do better with social interactions. Denies any fever, chills, unintentional weight loss, weakness, abdominal pain, sedation, nausea or dizziness except occasional constipation for which patient uses Miralax on as needed basis. 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 Alert and oriented. Mood and affect appropriate. Follows and participates in conversation appropriately. Respiratory effort is unlabored. No cough. Able to transition from sit to stand unassisted. Uses cane with ambulation. Ambulates with bilaterally normal heel strike and toe off. General: Yes no CVA tenderness Back/Spine/Pelvis Back: no CVA tenderness Thoracic/Lumbar Spine: thoracic and lumbar spine normal to inspection Extrem General: Yes capillary refill normal, Yes no clubbing, cyanosis or edema and Yes no calf tenderness Psych Appearance: grossly normal Speech and movement: Normal speech and movement present and Pressured speech present Affect: Sad affect present and Hostile affect present Attitude: cooperative Thought process: Normal thought process present and Circumstantial thought process present Thought content: Normal thought content present, suicidality (none) and no hallucinations Insight: Good insight present (Psych) Judgement: Good judgement present (Psych) Assessment & Plan Assessment & Plan (1) Chronic pain syndrome: Code(s): G89.4 - Chronic pain syndrome Category: Medical (2) Chronic, continuous use of opioids: Code(s): F11.90 - Opioid use, unspecified, uncomplicated Category: Medical (3) Bilateral primary osteoarthritis of knee: Code(s): M17.0 - Bilateral primary osteoarthritis of knee Category: Medical (4) Spondylosis of lumbar region without myelopathy or radiculopathy: Code(s): M47.816 - Spondylosis without myelopathy or radiculopathy, lumbar region Category: Medical (5) Polyarthralgia: Code(s): M25.50 - Pain in unspecified joint Category: Medical (6) Bilateral knee pain: Code(s): M25.561 - Pain in right knee; M25.562 - Pain in left knee Category: Medical Plan She will refill her medication today on 08/31/2024. Her next pill count with scheduled in 1 month. She is starting physical therapy for pelvic floor. Medications: Refilled oxycodone-acetaminophen 5-325 mg (Percocet) 1 tab PO TID 30 days PRN 90 tabs 0RF severe pain (scale score 7-10) G89.4 - Chronic pain syndrome, M43.06 - Spondylolysis, lumbar region, M46.1 - Sacroiliitis, not elsewhere classified Coding Level of Care Code Est Pt Level 3 (99769) Diagnoses Chronic pain syndrome G89.4 Chronic, continuous use of opioids F11.90 Bilateral primary osteoarthritis of knee M17.0 Spondylosis of lumbar region without myelopathy or radiculopathy M47.816 Polyarthralgia M25.50 Bilateral knee pain M25.561; M25.562
[2024-08-31 14:15] VITALS: BP 126/82; PULSE 78; RESP 16; O2SAT 97; BMI 28.0
== END 2024-08-31 14:41 | disposition home or self-care (01) ==
PROVIDERS: PCP Family Medicine; Visit Provider Anesthesiology
DX: G89.4 Chronic pain syndrome (principal); M17.0 Bilateral primary osteoarthritis of knee; M47.816 Spondylosis without myelopathy or radiculopathy, lumbar region; Z79.891 Long term (current) use of opiate analgesic; M25.50 Pain in unspecified joint; M25.561 Pain in right knee; M25.562 Pain in left knee
CPT/HCPCS: 99213

== ENCOUNTER → 2024-08-31 13:50 | Outpatient (BNVA) | payer OTHER, SELFPAY | PROVIDERS: PCP Family Medicine; Visit Provider Anesthesiology | DX: G89.4 Chronic pain syndrome (principal); M17.0 Bilateral primary osteoarthritis of knee; M47.816 Spondylosis without myelopathy or radiculopathy, lumbar region; M25.50 Pain in unspecified joint; M25.561 Pain in right knee; M25.562 Pain in left knee; M43.06 Spondylolysis, lumbar region; M46.1 Sacroiliitis, not elsewhere classified; F11.90 Opioid use, unspecified, uncomplicated; Z51.81 Encounter for therapeutic drug level monitoring | CPT/HCPCS: 99212 ==

== ENCOUNTER 2024-09-21 13:33 | Outpatient (AMB) | payer OTHER, SELFPAY ==
--- NOTE | 2024-09-21 13:51 | MHC.OFFVIS ---
Vital Signs 09/21/24 13:52 Height 5 ft 7 in Weight 180 lb BMI 28.2 BP 137/92 H Blood Pressure Location Lt brachial Position Sitting Respiration 16 Pulse 90 Pulse Source Pulse Oximeter Pulse Oximetry (%) 97 Oxygen Delivery Method Room Air Intake Visit Reasons: Pill count Intake Note: Pt states she last took percocet 09/21/24 @ 9am Allergies cockroach Allergy (Verified 09/21/24 13:53) Rash feathers Allergy (Verified 09/21/24 13:53) Rash Medication List - Last Reconciled 09/21/24 by Laisha Barton LPN aripiprazole 2 mg PO DAILY aripiprazole 5 mg PO DAILY aspirin 81 mg PO DAILY benzonatate 200 mg PO TID PRN cariprazine (Vraylar) 1.5 mg PO DAILY cariprazine (Vraylar) 3 mg PO DAILY cetirizine 10 mg PO DAILY clindamycin phosphate 1% 1 appl topical BID cyanocobalamin (vitamin B-12) ER 1,000 mcg PO DAILY diclofenac sodium 1% (Voltaren Arthritis Pain) 2 grams topical TID PRN doxycycline monohydrate 100 mg PO BID duloxetine 60 mg PO DAILY duloxetine 30 mg PO DAILY estradiol cypionate (Depo-Estradiol) mg IM gabapentin 300 mg (3 x 100 mg) PO BID 30 days ibuprofen 600 mg PO Q6H PRN lidocaine 5% 1 patch topical DAILY melatonin 5 mg PO .hs melatonin 5 mg PO BEDTIME methylphenidate HCl ER 36 mg PO QAM multivitamin 1 tab PO DAILY naloxone 4 mg/actuation (Narcan) 4 mg intranasal Q2M PRN oxybutynin chloride ER 10 mg PO DAILY oxycodone-acetaminophen 5-325 mg (Percocet) 1 tab PO TID PRN 30 days polyethylene glycol 3350 17 grams PO DAILY PRN testosterone 0 mg topical testosterone 0 mg topical HPI Comments Details: Arleth is here for the follow-up and pill count. She reports pain today is better than the last time at it is 03/28 today. She reports that opioid medications helps her pain. She denies side effects of the opioid medications. Pill count today: She supposed to have 30 pills in her possession. She came with 33 pills in her possession. Her pill count is correct. To shift her prescription medication count to midcycle I will invite her for the appointment in 1 month She reports that opioid medications allow her to be more active perform better activities of daily living do better with social interactions. Denies any fever, chills, unintentional weight loss, weakness, abdominal pain, sedation, nausea or dizziness except occasional constipation for which patient uses Miralax on as needed basis. 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 Arthritis Surgical History Person who has undergone gender reassignment surgery Social History (System 08/19/24 @ 10:28 by Amada Goodman) Alcohol intake: current Alcohol intake frequency: holidays/special occasions only Alcohol type: wine Patient Tobacco Use Status: Former Tobacco user Substance Use Type: Marijuana Current occupational status: disabled Current occupation: rt hand Review of Systems Const All systems reviewed & are unremarkable except as noted in HPI and below Physical Exam Vital Signs: Last Vital Signs Pulse 90 09/21/24 13:52 Resp 16 09/21/24 13:52 BP 137/92 H 09/21/24 13:52 Pulse Ox 97 09/21/24 13:52 Oxygen Delivery Method Room Air 09/21/24 13:52 BMI result Body Mass Index 28.2 General: Appears afebrile. Alert and oriented. Mood and affect appropriate. Follows and participates in conversation appropriately. Respiratory effort is unlabored. No cough. Able to transition from sit to stand unassisted. Uses cane with ambulation. Ambulates with bilaterally normal heel strike and toe off. General: Yes no CVA tenderness Back/Spine/Pelvis Back: no CVA tenderness Thoracic/Lumbar Spine: thoracic and lumbar spine normal to inspection Extrem General: Yes capillary refill normal, Yes no clubbing, cyanosis or edema and Yes no calf tenderness Psych Appearance: grossly normal Speech and movement: Normal speech and movement present and Pressured speech present Affect: Sad affect present and Hostile affect present Attitude: cooperative Thought process: Normal thought process present and Circumstantial thought process present Thought content: Normal thought content present, suicidality (none) and no hallucinations Insight: Good insight present (Psych) Judgement: Good judgement present (Psych) Assessment & Plan Assessment & Plan (1) Chronic pain syndrome: Code(s): G89.4 - Chronic pain syndrome Category: Medical (2) Chronic, continuous use of opioids: Code(s): F11.90 - Opioid use, unspecified, uncomplicated Category: Medical (3) Bilateral primary osteoarthritis of knee: Code(s): M17.0 - Bilateral primary osteoarthritis of knee Category: Medical (4) Spondylosis of lumbar region without myelopathy or radiculopathy: Code(s): M47.816 - Spondylosis without myelopathy or radiculopathy, lumbar region Category: Medical (5) Polyarthralgia: Code(s): M25.50 - Pain in unspecified joint Category: Medical (6) Bilateral knee pain: Code(s): M25.561 - Pain in right knee; M25.562 - Pain in left knee Category: Medical Plan Mass pat is reviewed and without concerns. She demonstrates responsible attitude to opioid medications. She will refill her medication today on 10/02/2024 Her next pill count with scheduled in 1 month. She continues physical therapy for pelvic floor. Medications: Refilled oxycodone-acetaminophen 5-325 mg (Percocet) 1 tab PO TID PRN 90 tabs 0RF severe pain (scale score 7-10) 30 days G89.4 - Chronic pain syndrome, M43.06 - Spondylolysis, lumbar region, M46.1 - Sacroiliitis, not elsewhere classified Coding Level of Care Code Est Pt Level 3 (65758) Diagnoses Chronic pain syndrome G89.4 Chronic, continuous use of opioids F11.90 Bilateral primary osteoarthritis of knee M17.0 Spondylosis of lumbar region without myelopathy or radiculopathy M47.816 Polyarthralgia M25.50 Bilateral knee pain M25.561; M25.562
[2024-09-21 13:52] VITALS: BP 137/92; PULSE 90; RESP 16; O2SAT 97; BMI 28.2
== END 2024-09-21 14:34 | disposition home or self-care (01) ==
PROVIDERS: PCP Family Medicine; Visit Provider Anesthesiology
DX: G89.4 Chronic pain syndrome (principal); M47.816 Spondylosis without myelopathy or radiculopathy, lumbar region; M17.0 Bilateral primary osteoarthritis of knee; Z79.891 Long term (current) use of opiate analgesic
CPT/HCPCS: 99213

== ENCOUNTER → 2024-09-21 13:33 | Outpatient (BNVA) | payer OTHER, SELFPAY | PROVIDERS: PCP Family Medicine; Visit Provider Anesthesiology | DX: Z51.81 Encounter for therapeutic drug level monitoring (principal); F11.20 Opioid dependence, uncomplicated; M17.0 Bilateral primary osteoarthritis of knee; M47.816 Spondylosis without myelopathy or radiculopathy, lumbar region; M25.50 Pain in unspecified joint; M25.561 Pain in right knee; M25.562 Pain in left knee; G89.4 Chronic pain syndrome | CPT/HCPCS: 99212 ==

== ENCOUNTER 2024-09-27 10:58 | Outpatient (REF) | payer OTHER, SELFPAY ==
[2024-09-27 12:52] LABS: TSH reflex Free T4 1.74 uIU/mL (0.32-4.0); Vitamin D 25-OH Total 17.5 ng/mL (>30)
[2024-09-27 13:01] LABS: Anion Gap 11 (12-20)
[2024-09-27 13:10] LABS: Albumin Level 4.4 g/dL (3.5-5.0); Alkaline Phosphatase 77 U/L (39-117); Aspartate Amino Transferase 23 U/L (5-31); Bilirubin Direct 0.4 mg/dL (0.0-0.5); Bilirubin Total 1.5 mg/dL (0.0-1.0); Blood Urea Nitrogen 11 mg/dL (9-16); Calcium 8.9 mg/dL (8.4-10.2); Carbon Dioxide 28 mmol/L (22-29); Chloride 104 mmol/L (96-108); Estimated Glomerular Filt Rate > 60; Glucose Random 92 mg/dL (60-115); Potassium 3.8 mmol/L (3.3-5.1); Sodium 139 mmol/L (135-145); Total Protein 7.1 g/dL (6.5-8.0)
[2024-09-27 13:33] LABS: Alanine Aminotransferase 27 U/L (0-31)
[2024-10-02 16:29] LABS: Testosterone, Total 17 ng/dL (2-45)
[2024-10-07 08:39] LABS: Estradiol Ultra Sensitive 35 pg/mL
== END 2024-09-27 10:59 | disposition home or self-care (01) ==
LOC: HO.HHCL 10:58
PROVIDERS: Visit Provider Family Medicine
DX: F64.0 Transsexualism (principal)
CPT/HCPCS: 36415; 80048; 80076; 82306; 82670; 84403; 84443

== ENCOUNTER 2024-10-20 13:50 | Outpatient (AMB) | payer OTHER, SELFPAY ==
--- NOTE | 2024-10-20 13:52 | MHC.OFFVIS ---
Vital Signs 10/20/24 14:18 Height 5 ft 7 in Weight 188 lb BMI 29.4 BP 151/92 H Blood Pressure Location Lt brachial Position Sitting Pulse 71 Pulse Source Pulse Oximeter Pulse Oximetry (%) 98 Oxygen Delivery Method Room Air Intake Visit Reasons: Pill Count/ random UDS Intake Note: Cherri comes in today for a pill count to oxycodone-acetaminophen, patient should have 33 tablets and presents with 36.5 tablets which she last took 1/2 tablet today 10/20/24 at 10am. Pain today 02/25 Patient resigned opioid contract in office today 10/20/24, scopy of signed contract was provided to patient. Patient will also have random UDS done in office. Tool Room Supervisor Required: No Accompanied by: Self / Same As Patient Allergies cockroach Allergy (Verified 10/20/24 14:03) Rash feathers Allergy (Verified 10/20/24 14:03) Rash HPI Comments Details: Arleth is here for the follow-up and pill count. She reports pain today is better than the last time at it is 02/25 today. She reports that opioid medications helps her pain. She denies side effects of the opioid medications. Pill count today: She supposed to have 33 pills in her possession. She came with 36.5 pills in her possession. Her pill count is correct. She reports that opioid medications allow her to be more active perform better activities of daily living do better with social interactions. Denies any fever, chills, unintentional weight loss, weakness, abdominal pain, sedation, nausea or dizziness except occasional constipation . 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 Arthritis Surgical History Person who has undergone gender reassignment surgery Social History (System 08/19/24 @ 10:28 by Amada Goodman) Alcohol intake: current Alcohol intake frequency: holidays/special occasions only Alcohol type: wine Patient Tobacco Use Status: Former Tobacco user Substance Use Type: Marijuana Current occupational status: disabled Current occupation: rt hand Review of Systems Const All systems reviewed & are unremarkable except as noted in HPI and below Physical Exam Vital Signs: Last Vital Signs Pulse 71 10/20/24 14:18 BP 151/92 H 10/20/24 14:18 Pulse Ox 98 10/20/24 14:18 Oxygen Delivery Method Room Air 10/20/24 14:18 BMI result Body Mass Index 29.4 General: Appears afebrile. Alert and oriented. Mood and affect appropriate. Follows and participates in conversation appropriately. Respiratory effort is unlabored. No cough. Able to transition from sit to stand unassisted. Uses cane with ambulation. Ambulates with bilaterally normal heel strike and toe off. General: Yes no CVA tenderness Back/Spine/Pelvis Back: no CVA tenderness Thoracic/Lumbar Spine: thoracic and lumbar spine normal to inspection Extrem General: Yes capillary refill normal, Yes no clubbing, cyanosis or edema and Yes no calf tenderness Psych Appearance: grossly normal Speech and movement: Normal speech and movement present and Pressured speech present Affect: Sad affect present and Hostile affect present Attitude: cooperative Thought process: Normal thought process present and Circumstantial thought process present Thought content: Normal thought content present, suicidality (none) and no hallucinations Insight: Good insight present (Psych) Judgement: Good judgement present (Psych) Assessment & Plan Assessment & Plan (1) Chronic pain syndrome: Code(s): G89.4 - Chronic pain syndrome Category: Medical (2) Chronic, continuous use of opioids: Code(s): F11.90 - Opioid use, unspecified, uncomplicated Category: Medical (3) Bilateral primary osteoarthritis of knee: Code(s): M17.0 - Bilateral primary osteoarthritis of knee Category: Medical (4) Spondylosis of lumbar region without myelopathy or radiculopathy: Code(s): M47.816 - Spondylosis without myelopathy or radiculopathy, lumbar region Category: Medical (5) Polyarthralgia: Code(s): M25.50 - Pain in unspecified joint Category: Medical (6) Bilateral knee pain: Code(s): M25.561 - Pain in right knee; M25.562 - Pain in left knee Category: Medical Plan Mass pat is reviewed and without concerns. She demonstrates responsible attitude to opioid medications. She will refill her medication today on 11/01/2024. Her next pill count with scheduled in 1 month. She will be submitted urine drug screen today. She reports that she took her last pill at 10:00 today. Medications: Refilled oxycodone-acetaminophen 5-325 mg (Percocet) 1 tab PO TID PRN 90 tabs 0RF severe pain (scale score 7-10) 30 days G89.4 - Chronic pain syndrome, M43.06 - Spondylolysis, lumbar region, M46.1 - Sacroiliitis, not elsewhere classified Coding Level of Care Code Est Pt Level 3 (93467) Diagnoses Chronic pain syndrome G89.4 Chronic, continuous use of opioids F11.90 Bilateral primary osteoarthritis of knee M17.0 Spondylosis of lumbar region without myelopathy or radiculopathy M47.816 Polyarthralgia M25.50 Bilateral knee pain M25.561; M25.562
[2024-10-20 14:18] VITALS: BP 151/92; PULSE 71; O2SAT 98; BMI 29.4
== END 2024-10-20 14:11 | disposition home or self-care (01) ==
PROVIDERS: PCP Family Medicine; Visit Provider Anesthesiology
DX: G89.4 Chronic pain syndrome (principal); M17.0 Bilateral primary osteoarthritis of knee; M47.816 Spondylosis without myelopathy or radiculopathy, lumbar region; Z79.891 Long term (current) use of opiate analgesic; M25.50 Pain in unspecified joint; M25.561 Pain in right knee; M25.562 Pain in left knee
CPT/HCPCS: 99213

== ENCOUNTER → 2024-10-20 13:50 | Outpatient (BNVA) | payer OTHER, SELFPAY | PROVIDERS: PCP Family Medicine; Visit Provider Anesthesiology | DX: Z51.81 Encounter for therapeutic drug level monitoring (principal); F11.20 Opioid dependence, uncomplicated; M17.0 Bilateral primary osteoarthritis of knee; M47.816 Spondylosis without myelopathy or radiculopathy, lumbar region; M25.50 Pain in unspecified joint; M25.561 Pain in right knee; M25.562 Pain in left knee; G89.4 Chronic pain syndrome | CPT/HCPCS: 99212 ==

== ENCOUNTER 2024-11-17 13:51 | Outpatient (AMB) | payer OTHER, SELFPAY ==
--- NOTE | 2024-11-17 13:56 | MHC.OFFVIS ---
Vital Signs 11/17/24 14:07 Height 5 ft 7 in Weight 195 lb 4 oz BMI 30.6 BP 129/93 H Blood Pressure Location Lt brachial Position Sitting Pulse 71 Pulse Source Pulse Oximeter Intake Visit Reasons: Pill Count Intake Note: Cherri comes in today for a pill count to oxycodone-acetaminophen, patient should have 39 tablets and presents with 42 tablets which she last took today 11/17/24 at 9am. Pain today 04/27 Kinesiology Professor Required: No Accompanied by: Self / Same As Patient Allergies cockroach Allergy (Verified 11/17/24 14:08) Rash feathers Allergy (Verified 11/17/24 14:08) Rash HPI Comments Details: Arleth is here for the follow-up and pill count. She reports pain today is better than the last time at it is 02/25 today. She reports that opioid medications helps her pain. She denies side effects of the opioid medications. She denies constipation. Pill count today: She supposed to have 39 pills in her possession. She came with 42 pills in her possession. Her pill count is correct. She reports that opioid medications allow her to be more active perform better activities of daily living do better with social interactions. Denies any fever, chills, unintentional weight loss, weakness, abdominal pain, sedation, nausea or dizziness. She picked up her medication on 11/01/2024. She will be prescribed new medication script on 12/01/2024. Next pill count appointment in 1 month. 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 Arthritis Surgical History Person who has undergone gender reassignment surgery Social History (System 08/19/24 @ 10:28 by Amada Goodman) Alcohol intake: current Alcohol intake frequency: holidays/special occasions only Alcohol type: wine Patient Tobacco Use Status: Former Tobacco user Substance Use Type: Marijuana Current occupational status: disabled Current occupation: rt hand Review of Systems Const All systems reviewed & are unremarkable except as noted in HPI and below Physical Exam Vital Signs: Last Vital Signs Pulse 71 11/17/24 14:07 BP 129/93 H 11/17/24 14:07 BMI result Body Mass Index 30.6 General: Appears afebrile. Alert and oriented. Mood and affect appropriate. Follows and participates in conversation appropriately. Respiratory effort is unlabored. No cough. Able to transition from sit to stand unassisted. Uses cane with ambulation. Ambulates with bilaterally normal heel strike and toe off. General: Yes no CVA tenderness Back/Spine/Pelvis Back: no CVA tenderness Thoracic/Lumbar Spine: thoracic and lumbar spine normal to inspection Extrem General: Yes capillary refill normal, Yes no clubbing, cyanosis or edema and Yes no calf tenderness Psych Appearance: grossly normal Speech and movement: Normal speech and movement present and Pressured speech present Affect: Sad affect present and Hostile affect present Attitude: cooperative Thought process: Normal thought process present and Circumstantial thought process present Thought content: Normal thought content present, suicidality (none) and no hallucinations Insight: Good insight present (Psych) Judgement: Good judgement present (Psych) Assessment & Plan Assessment & Plan (1) Chronic pain syndrome: Code(s): G89.4 - Chronic pain syndrome Category: Medical (2) Chronic, continuous use of opioids: Code(s): F11.90 - Opioid use, unspecified, uncomplicated Category: Medical (3) Bilateral primary osteoarthritis of knee: Code(s): M17.0 - Bilateral primary osteoarthritis of knee Category: Medical (4) Spondylosis of lumbar region without myelopathy or radiculopathy: Code(s): M47.816 - Spondylosis without myelopathy or radiculopathy, lumbar region Category: Medical (5) Polyarthralgia: Code(s): M25.50 - Pain in unspecified joint Category: Medical (6) Bilateral knee pain: Code(s): M25.561 - Pain in right knee; M25.562 - Pain in left knee Category: Medical Plan Mass pat is reviewed and without concerns. She demonstrates responsible attitude to opioid medications. She will refill her medication today on 12/01/2024 Her next pill count is scheduled in 1 month. She reports that she took her last pill at 09:00 today. Medications: Refilled oxycodone-acetaminophen 5-325 mg (Percocet) 1 tab PO TID PRN 90 tabs 0RF severe pain (scale score 7-10) 30 days G89.4 - Chronic pain syndrome, M43.06 - Spondylolysis, lumbar region, M46.1 - Sacroiliitis, not elsewhere classified Coding Level of Care Code Est Pt Level 3 (89267) Diagnoses Chronic pain syndrome G89.4 Chronic, continuous use of opioids F11.90 Bilateral primary osteoarthritis of knee M17.0 Spondylosis of lumbar region without myelopathy or radiculopathy M47.816 Polyarthralgia M25.50 Bilateral knee pain M25.561; M25.562
[2024-11-17 14:07] VITALS: BP 129/93; PULSE 71; BMI 30.6
--- OUTSIDE RECORDS SUMMARY | 2024-11-17 17:42 | XMS_ITS | Encounter Summary ---
Author Organization [employer] Address [address] [place] [address] Care Team Providers Care Color Checker Roving Or Yarn Name Role Phone Sudha Richardson MD Primary Care Provider [phone]- [phone] Matthew Woods MD Unavailable Reason for Visit * Reason Comments Med Refill Encounter Details Date Type Department Care Team (Late st Contact Info) Description 03/26/2024 Refill [facility] MEDICINE [address] [place], [place] [phone] Sudha Richardson MD [address] [place] [address] Urinary incontinence, unspecified type Social History Tobacco Use Types Packs/Day Years Used Date Smoking Tobacco: Former Cigarettes Passive Smoke Exposure: Current Smokeless Tobacco: Never Alcohol Use Standard Drinks/Week Comments Never 0 (1 standard drink = 0.6 oz pur e alcohol) Depression Answer Date Recorded Patient Health Questionnaire-9 Score 0 12/25/2022 Housing Stability Answer Date Recorded What is your housing situation today? I have reuben coughlin 08/03/[address] you li ve. Do you have problems with any of the following? None of the above 08/03/2023 Food Insecurity Answer Date Recorded Within the past 12 months, y ou worried that your food would run out before you got money to buy more: Never True 08/03/2023 Within the past 12 months,th e food you bought just didn't last and you didn't have enough money to get more: Never True Transportation Answer Date Recorded In the past 12 months, has l ack of transportation kept you from medical appts, meetings, work or from getting things needed for daily living? No 08/03/2023 Utilities Answer Date Recorded In the past 12 months, has t he electric, gas, oil or water company threatened to shut off services in your home? No 08/03/2023 Depression Answer Date Recorded Patient Health Questionnaire-2 Score 0 12/25/2022 Sex and Gender Information Value Date Recorded Sex Assigned at Male 08/18/2022 10:14 AM EDT Legal Sex Female 10:14 AM EDT Gender Identity Transgender Female 08/18/2022 10 :14 AM EDT Sexual Orientation Choose not to disclose 2021 10:14 AM EDT documented as of this encounter Plan of Treatment Upcoming Encounters Date Type Department Care Team (Late st Contact Info) Description 12/06/2024 1:30 PM EST Clinical Support [facility] DIABETES/NUTRITION [address] [place] [address] [place] [address] documented as of this encounter Visit Diagnoses Diagnosis Urinary incontinence, unspecified type documented in this encounter Additional Health Concerns Assessment Noted Time PHQ-9 Depression Total Score: 0 12/26/19 23 2:59 PM EST documented as of this encounter Care Teams Color Checker Roving Or Yarn Relationship Specialty Start Date End Date Sudha Richardson MD [address] [place] [address] PCP - General Family Medicine 10/19/18 Matthew Woods MD [address] [place] [address] Pain Medicine 09/21/24 documented as of this encounter
--- OUTSIDE RECORDS SUMMARY | 2024-11-17 17:42 | XMS_ITS | Encounter Summary ---
Author Organization [employer] Address [address] [place] [address] Care Team Providers Care Messaging Architect Name Role Phone Sudha Richardson MD Primary Care Provider [phone]- [phone] Matthew Woods MD Unavailable Reason for Visit * Reason Onset Date Comments Error 01/05/2024 Encounter Details Date Type Department Care Team ([facility] st Contact Info) Description 01/05/2024 Telephone [facility] MEDICINE [address] [place], [place] [phone] Sudha Richardson MD [address] [place], [place] [phone] Error Social History Tobacco Use Types Packs/Day Years [...] 1:30 PM EST Clinical Support [facility] DIABETES/NUTRITION [address] [place] [address] [place] [address] documented as of this encounter Visit Diagnoses Not on filedocumented in this encounter Additional Health Concerns Assessment Noted Time PHQ-9 Depression Total Score: 0 12/26/19 23 2:59 PM EST documented as of this encounter Care Teams Messaging Architect Relationship Specialty Start Date End Date Sudha Richardson MD [address] [place] [address] PCP - General Family Medicine 10/19/18 Matthew Woods MD [address] [place] [address] Pain Medicine 09/21/24 documented as of this encounter
--- OUTSIDE RECORDS SUMMARY | 2024-11-17 17:42 | XMS_ITS | Encounter Summary ---
Author Organization [employer] Address [address] [place] [address] Care Team Providers Care Chair And Couch Maker Name Role Phone Sudha Richardson MD Primary Care Provider [phone]- [phone] Matthew Woods MD Unavailable Encounter Details Date Type Department Care Team (Late st Contact Info) Description 05/07/2023 Orders Only [facility] MEDICINE [address] [place], [place] [phone] Sudha Richardson MD [address] [place], [place] [phone] Gender dysphoria in adult Social History Tobacco Use Types Packs/Day Years Used Date Smoking Tobacco: Former Cigarettes Passive Smoke Exposure: Current Smokeless Tobacco: Never Alcohol Use Standard Drinks/Week Comments Never 0 (1 standard drink = 0.6 oz pur e alcohol) Depression Answer Date Recorded Patient Health Questionnaire-9 Score 0 12/25/2022 Depression Answer Date Recorded Patient Health Questionnaire-2 Score 0 12/25/2022 Sex and Gender Information Value Date Recorded Sex Assigned at Male 08/18/2022 10:14 AM EDT Legal Sex Female 10:14 AM EDT Gender Identity Transgender Female 08/18/2022 10 :14 AM EDT Sexual Orientation Choose not to disclose 2021 10:14 AM EDT COVID-19 Exposure Response Date Recorded In the last 10 days, have yo u been in contact with someone who was confirmed or suspected to have Coronavirus/COVID-19? No / Unsure 04/15/2023 3:50 PM EDT documented as of this encounter Plan of Treatment Upcoming Encounters Date Type Department Care Team (Late st Contact Info) Description 12/06/2024 1:30 PM EST Clinical Support [facility] DIABETES/NUTRITION [address] [place] [address] Roberta Mckeon, CHARLA [address] [place] [address] documented as of this encounter Visit Diagnoses Diagnosis Gender dysphoria in adult documented in this encounter Additional Health Concerns Assessment Noted Time PHQ-9 Depression Total Score: 0 12/26/19 23 2:59 PM EST documented as of this encounter Care Teams Chair And Couch Maker Relationship Specialty Start Date End Date Sudha Richardson MD [address] [place] [address] PCP - General Family Medicine 10/19/18 Matthew Woods MD [address] [place] [address] Drive [address] [place] [address] Pain Medicine 09/21/24 documented as of this encounter
--- OUTSIDE RECORDS SUMMARY | 2024-11-17 17:42 | XMS_ITS | Encounter Summary ---
Author Organization [employer] Address [address] [facility] [address] 7t [place] [address] Care Team Providers Care Label Stamper Name Role Phone Debra, Sudha FROST Primary Care Provider +1- [phone] Matthew Woods MD Unavailable Reason for Visit * Reason Comments Med Refill Encounter Details Date Type Department Care Team (Late st Contact Info) Description 01/06/2024 Refill [facility] MEDICINE [address] [place], [place] [phone] Atiya Alegria MD 230 [place] [address] Urinary incontinence, unspecified type Social History Tobacco [...] Description 12/06/2024 1:30 PM EST Clinical Support [facility] DIABETES/NUTRITION 230 [place] [address] 230 [place] [address] documented as of this encounter Visit Diagnoses Diagnosis Urinary incontinence, unspecified type documented in this encounter Additional Health Concerns Assessment Noted Time PHQ-9 Depression Total Score: 0 12/26/19 23 2:59 PM EST documented as of this encounter Care Teams Label Stamper Relationship Specialty Start Date End Date Sudha Richardson MD 230 [place] [address] PCP - General Family Medicine 10/19/18 Matthew Woods MD [address] [place] [address] Pain Medicine 09/21/24 documented as of this encounter
--- OUTSIDE RECORDS SUMMARY | 2024-11-17 17:42 | XMS_ITS | Encounter Summary ---
Author Organization [employer] Address [address] [facility] [address] 7[address] [place] [address] Care Team Providers Care Hot Press Operator Name Role Phone Sudha Richardson MD Primary Care Provider +1- [phone] Matthew Woods MD Unavailable Reason for Visit * Reason Onset Date Comments triage 02/04/2023 Encounter Details Date Type Department Care Team (Late st Contact Info) Description 02/04/2023 Telephone [facility] MEDICINE 230 [place], [place] [phone] Sudha Richardson MD 230 [place], [place] [phone] triage Social History Tobacco Use Types Packs/Day Years Used Date Smoking Tobacco: Former Cigarettes Smokeless Tobacco: Never Alcohol Use Standard Drinks/Week [...] suspected to have Coronavirus/COVID-19? No / Unsure 01/30/2023 3:30 PM EDT documented as of this encounter Miscellaneous Notes * Telephone Encounter - Haley Seals RN - 02/04/2023 1:06 PM EDT Triage call Pt reports vomiting 3x / day yesterday and today. Pt reports more nausea today and dizziness, headache, neg for fever. Pt is requesting medication for nausea to stop the vomiting. Pt is also reporting what seems to be a possible hormone related imbalance with red spider veins on breasts, painful and itchy. Pt requests this information be sent to Dr. Richardson. Pt is advised to come [facility] for care for nausea and vomiting and Pt agrees. Home care reviewed. Protocol Used: Vomiting (Adult) Protocol-Based Disposition: See in Office or Video Visit Today Video visit not offered Positive Triage Questions: * Mild to Moderate vomiting (e.g., 1-5 times/day) and lasts > 48 hours (2 days) * Patient wants to be seen * All higher-acuity triage questions were negative Care Advice Discussed: * Reassurance and Education - Mild to Moderate Vomiting * For Non-Stop Vomiting, Try Sleeping * Clear Liquids * Solid Food * Contagiousness * Expected Course * Reasons To Call Back - Vomiting lasts for more than 2 days (48 hours) - Signs of dehydration occur - You become worse * Telephone Encounter - Leyla Alves - 02/04/2023 12:08 PM EDT Symptom: Breast Symptoms, vomiting Outcome: Schedule an appointment to be seen within 24 hours Reason: No high acuity concerns reported by caller The caller accepted this outcome documented in this encounter Plan of Treatment Upcoming Encounters Date Type Department Care Team (Late st Contact Info) Description 12/06/2024 1:30 PM EST Clinical Support [facility] DIABETES/NUTRITION [address] [place] [address] [place], [place] [phone] documented as of this encounter Visit Diagnoses Not on filedocumented in this encounter Additional Health Concerns Assessment Noted Time PHQ-9 Depression Total Score: 0 12/26/19 23 2:59 PM EST documented as of this encounter Care Teams Hot Press Operator Relationship Specialty Start Date End Date Sudha Richardson MD [address] [place] [address] PCP - General Family Medicine 10/19/18 Matthew Woods MD [address] [place] [address] [place] [address] Pain Medicine 09/21/24 documented as of this encounter
--- OUTSIDE RECORDS SUMMARY | 2024-11-17 17:42 | XMS_ITS | Encounter Summary ---
Author Organization [employer] Address [address] [address] [facility] [address] 7[address] [place] [address] Care Team Providers Care Hand Spring Former Name Role Phone Sudha Richardson MD Primary Care Provider +1- [phone] Matthew Woods MD Unavailable Encounter Details Date Type Department Care Team (Late st Contact Info) Description 11/06/2023 Telephone [facility] MEDICINE 230 [place], [place] [phone] Sudha Richardson MD [address] [place], [place] [phone] Social History Tobacco Use Types Packs/Day Years [...] AM EDT documented as of this encounter Miscellaneous Notes * Telephone Encounter - Sudha Richardson MD - 11/11/2023 10:52 AM EST Please order bed pad for hospital bed, dx somatoform disorder, back pain. Pt has hospital bed and [facility]. Thank you. documented in this encounter Plan of Treatment Upcoming Encounters Date Type Department Care Team (Late st Contact Info) Description 12/06/2024 1:30 PM EST Clinical Support [facility] DIABETES/NUTRITION [address] [place] [address] Roberta Mckeon, RD [address] [place] [address] documented as of this encounter Visit Diagnoses Not on filedocumented in this encounter Additional Health Concerns Assessment Noted Time PHQ-9 Depression Total Score: 0 12/26/19 23 2:59 PM EST documented as of this encounter Care Teams Hand Spring Former Relationship Specialty Start Date End Date Sudha Richardson MD [address] [place] [address] PCP - General Family Medicine 10/19/18 Matthew Woods MD [address] [place] [address] Pain Medicine 09/21/24 documented as of this encounter
--- OUTSIDE RECORDS SUMMARY | 2024-11-17 17:42 | XMS_ITS | Encounter Summary ---
Author Organization [employer] Address [address] 7[address] [place] [address] Care Team Providers Care Supervisor Education Name Role Phone Sudha Richardson MD Primary Care Provider +1- [phone] Matthew Woods MD Unavailable Reason for Visit * Reason Onset Date Comments Durable Medical Equipment 11/08/2024 Encounter Details Date Type Department Care Team (Late st Contact Info) Description 11/08/2024 Telephone [facility] MEDICINE 230 [place], [place] [phone] Sudha Richardson MD 230 [place], [place] [phone] Durable Medical Equipment Social History Tobacco Use Types Packs/Day Years Used Date Smoking Tobacco: Former Cigarettes Passive Smoke Exposure: Current Smokeless Tobacco: Former Quit: 12/18/2023 Alcohol Use Standard Drinks/Week Comments Never 0 (1 standard drink = 0.6 oz pur e alcohol) Depression Answer Date Recorded Patient Health Questionnaire-9 Score 24 06/10/2024 Patient Health Questionnaire-9 Score 24 06/10/2024 Last PHQ-9: Questionnaire Data Not on file 0 06/10/2024 Housing Stability Answer Date Recorded What is [...] t he electric, gas, oil or water Security Scorecard threatened to shut off services in your home? No 08/03/2023 Depression Answer Date Recorded Patient Health Questionnaire-2 Score 6 06/10/2024 Sex and Gender Information Value Date Recorded Sex Assigned at Male 08/18/2022 10:14 AM EDT Legal Sex Female 10:14 AM EDT Gender Identity Transgender Female 08/18/2022 10 :14 AM EDT Sexual Orientation Choose not to disclose 2021 10:14 AM EDT documented as of this encounter Miscellaneous Notes * Telephone Encounter - Emma Santana - 11/11/2024 10:48 AM EST Signed Rx received and scanned into media. [facility] copy center associate notified via [employer] staff message. * Telephone Encounter - Emma Santana - 11/08/2024 3:56 PM EST DME RX for rollator repairs generated and placed on providers desk for review and signature. * Telephone Encounter - Emma Santana - 11/08/2024 3:55 PM EST ----- Message from Mayte Lugo sent at 11/08/2024 3:04 PM EST ----- Regarding: Script Requests Contact: Tri, I am (Manager Test Mayte Barajas), Manager Test for [facility] Care Management, requesting the following DME???s on behalf of patient. DME Item: Walker with breaks- Repair Script Requests Please Fax [employer] DX: R26.81, M62.89, M54.16 If you should have any inquiries regarding this request, feel free to contact the Manager Test below. Manager Test: Mayte Barajas E-mail: [email or web address] Ribbon Cutter: Covering Ribbon Cutter Jada Wei Phone: E-mail: Thanks in advance for your assistance with this request. Sincerely, [facility] Care Management documented in this encounter Plan of Treatment Upcoming Encounters Date Type Department Care Team (Late st Contact Info) Description 12/06/2024 1:30 PM EST Clinical Support [facility] DIABETES/NUTRITION 230 [place], [place] [phone] Roberta Mckeon RD 230 [place] [address] documented as of this encounter Visit Diagnoses Not on filedocumented in this encounter Additional Health Concerns Assessment Noted Time PHQ-9 Depression Total Score: 24 024 9:39 AM EDT documented as of this encounter Care Teams Supervisor Education Relationship Specialty Start Date End Date Sudha Richardson MD 230 [place] [address] PCP - General Family Medicine 10/19/18 Matthew Woods MD [address] [place] [address] Drive [address] [place] [address] Pain Medicine 09/21/24 documented as of this encounter
--- OUTSIDE RECORDS SUMMARY | 2024-11-17 17:42 | XMS_ITS | Encounter Summary ---
Author Organization [employer] Address [address] [facility] [address] 7[address] [place] [address] Care Team Providers Care Champion Of Sustainable Design Name Role Phone Sudha Richardson MD Primary Care Provider +1- [phone] Matthew Woods MD Unavailable Encounter Details Date Type Department Care Team (Late st Contact Info) Description 08/31/2024 Orders Only [facility] MEDICINE 230 [place], [place] [phone] Sudha Richardson MD 230 [place], [place] [phone] Social History Tobacco Use Types Packs/Day Years [...] Description 12/06/2024 1:30 PM EST Clinical Support [facility] DIABETES/NUTRITION 230 [place] [address] 230 [place] [address] documented as of this encounter Visit Diagnoses Not on filedocumented in this encounter Additional Health Concerns Assessment Noted Time PHQ-9 Depression Total Score: 24 024 9:39 AM EDT documented as of this encounter Care Teams Champion Of Sustainable Design Relationship Specialty Start Date End Date Sudha Richardson MD 230 [place] [address] PCP - General Family Medicine 10/19/18 Matthew Woods MD [address] [place] [address] Pain Medicine 09/21/24 documented as of this encounter
--- OUTSIDE RECORDS SUMMARY | 2024-11-17 17:42 | XMS_ITS | Encounter Summary ---
Author Organization [employer] Address [address] 7t [place] [address] Care Team Providers Care Donor Relations Officer Name Role Phone Sudha Richardson MD Primary Care Provider +1- [phone] Matthew Woods MD Unavailable Reason for Visit * Reason Onset Date Comments Nurse Triage 09/05/2024 Encounter Details Date Type Department Care Team (Late st Contact Info) Description 09/05/2024 Telephone [facility] MEDICINE 230 [place], [place] [phone] Sudha Richardson MD 230 [place], [place] [phone] Nurse Triage Social History Tobacco Use Types Packs/Day Years [...] the past 12 months, has t he [employer], gas, oil or water company threatened to [...] Telephone Encounter - Haley Seals RN - 09/05/2024 2:41 PM EST Triage call Pt reports left nare is red, swollen and gets crusted exudate . Pt reports doesn't haveanything to use such as a wash cloth to apply warm water to soften the area. Pt has been picking atthe area with long acrylic nail and will cause some bleeding at times. Pt has been prescribed flonase nasal spray 06/10/24 but, just started using it again 2-3 days ago and reports it doesn't decreasethe swelling. Pt reports it is difficult to breathe through the nose . Pt is advised to come to [facility] which is open till 8pm. Pt agrees with this disposition. Insurance is verified as active . Protocol Used: Sinus Pain or Congestion (Adult) Protocol-Based Disposition: See in Office or Video Visit Today or Tomorrow Video visit not offered Positive Triage Question: * Patient wants to be seen * All higher-acuity triage questions were negative Care Advice Discussed: * Reasons To Call Back - Severe pain lasts over 2 hours after pain medicine - Sinus pain lasts over 1 day after using nasal washes - Sinus congestion (fullness) lasts over 10 days - Fever lasts over 3 days - You become worse * Telephone Encounter - Arias Bass - 09/05/2024 2:18 PM EST Symptom: Sinus Symptoms Outcome: Schedule an urgent appointment (within 4 hours) or talk to a nurse or provider soon Reason: Red swelling on cheek or around eye The caller accepted this outcome. Please contact at [phone] documented in this encounter Plan of Treatment Upcoming Encounters Date Type Department Care Team (Late st Contact Info) Description 12/06/2024 1:30 PM EST Clinical Support [facility] DIABETES/NUTRITION 230 [place] [address] 230 [place] [address] documented as of this encounter Visit Diagnoses Not on filedocumented in this encounter Additional Health Concerns Assessment Noted Time PHQ-9 Depression Total Score: 24 024 9:39 AM EDT documented as of this encounter Care Teams Donor Relations Officer Relationship Specialty Start Date End Date Sudha Richardson MD 230 [place] [address] PCP - General Family Medicine 10/19/18 Matthew Woods MD [address] [place] [address] [address] [place] [address] Pain Medicine 09/21/24 documented as of this encounter
--- OUTSIDE RECORDS SUMMARY | 2024-11-17 17:42 | XMS_ITS | Encounter Summary ---
Author Organization [employer] Address [address] [facility] 7t [place] [address] Care Team Providers Care Multi Spindle Operator Name Role Phone Sudha Richardson MD Primary Care Provider +1- [phone] Matthew Woods MD Unavailable Encounter Details Date Type Department Care Team (Late Contact Info) Description 11/17/2022 Orders Only [facility] MEDICINE [address] [place] [address] Grabiel Sanders MD [address] [place] [address] Social History Tobacco Use Types Packs/Day Years Used Date Smoking Tobacco: Former Cigarettes Smokeless Tobacco: Never Alcohol Use Standard Drinks/Week Comments Never 0 (1 standard drink = 0.6 oz pur e alcohol) Sex and Gender Information Value Date Recorded [...] suspected to have Coronavirus/COVID-19? No / Unsure 11/17/2022 5:25 PM EST documented as of this encounter Plan of Treatment Upcoming Encounters Date Type Department Care Team ([facility] Contact Info) Description 12/06/2024 1:30 PM EST Clinical Support [facility] DIABETES/NUTRITION [address] [place] [address] [place] [address] documented as of this encounter Procedures Procedure Name Priority Date/Time Associated Diagnosis Comments XR CHEST 2 VIEWS Routine 11/27/2022 3:16 PM EST documented in this encounter Results * XR Chest 2 Views (11/27/2022 3:16 PM EST) Anatomical Region Laterality Modality Chest Radiographic Kym ging 11/27/2022 3:16 PM EST Narrative 12/03/2022 11:47 AM EST ? [facility] ?[address] ?[place] [address] ?XRay Report ? Signed ? Patient: Faraz Faraz,Cherri ?MR ?? #: [id number] ? : 1985 ?Acct:[id number] ? Age/Sex: 37 / F ?ADM Date: 11/27/22 ? Loc: HO.XRAY ? Attending Dr: Grabiel Sanders MD ? Ordering Physician: Grabiel Sanders MD ?? Date of Service: 11/27/22 ?? Procedure(s): XR chest 2V ?? Accession Number(s): [id number] ? cc: Grabiel Sanders MD ? EXAMINATION: ?? XR CHEST 2 VIEWS ? CLINICAL INFORMATION: ?? Left back pain. ? COMPARISON: ?? Chest radiographs, most recently 04/02/2022. ? TECHNIQUE: ?? Frontal and lateral views of the chest were obtained. ? FINDINGS: ?? The heart, great vessels, pulmonary vasculature and mediastinum are ?? normal. The lungs show no focal infiltrate, effusion or pneumothorax. ?? There is no acute osseous abnormality. ? XR/XR chest 2V ?? IMPRESSION: ?? No active cardiopulmonary disease. ? Dictated By: ?Julius Ac MD ? Signed By: ?<Electronically signed by Julius Ac MD in OV> ? 12/03/22 1144 ? DD/ 15 ? TD/TT: ? Director Rehabilitation Program: LAVELLE ? Procedure Note Donotuseinterpreter, Image - 12/03/2022 [facility] [address] [place] [address] XRay Report Signed Patient: Cherri BoothMR #: [id number] : 1985Acct:[id number] Age/Sex: 37 / FADM Date: 11/27/22 Loc: HO.XRAY Attending Dr: Grabiel Sanders MD Ordering Physician: Grabiel Sanders MD Date of Service: 11/27/22 Procedure(s): XR chest 2V Accession Number(s): [id number] cc: Grabiel Sanders MD EXAMINATION: XR CHEST 2 VIEWS CLINICAL INFORMATION: Left back pain. COMPARISON: Chest radiographs, most recently 04/02/2022. TECHNIQUE: Frontal and lateral views of the chest were obtained. FINDINGS: The heart, great vessels, pulmonary vasculature and mediastinum are normal. The lungs show no focal infiltrate, effusion or pneumothorax. There is no acute osseous abnormality. XR/XR chest 2V IMPRESSION: No active cardiopulmonary disease. Dictated By: Julius Ac MD Signed By: <Electronically signed by Julius Ac MD in OV> 12/03/22 1144 DD/ 1516 TD/TT: Director Rehabilitation Program: LAVELLE [facility] External Provider IMG XR PROCEDURES Edited Result - Final documented in this encounter Visit Diagnoses Not on filedocumented in this encounter Care Teams Multi Spindle Operator Relationship Specialty Start Date End Date Sudha Richardson MD 230 [place] [address] PCP - General Family Medicine 10/19/18 Matthew Woods MD [address] [place] [address] Pain Medicine 09/21/24 documented as of this encounter
--- OUTSIDE RECORDS SUMMARY | 2024-11-17 17:42 | XMS_ITS | Clinical Summary ---
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 muscle length, scar massage and mobility when able, down train and relaxation as tolerated. Pt has attended 7 out of 11 visits since initial evaluation 04/25/2021. Pt participates in PT sessions and is adherent to HEP. Pt continues to report the following functional limitations: High level of anxiety and fear avoidance behaviors pertaining to dysfunctions in legs and pelvic floor, no improvement in bladder control or pain and worsening balance and walking. Pt demonstrates with the following objective measures: Impaired walking and high levels of anxiety and frustration related to impairments. These findings indicate no improvement since initial evaluation. Potential barriers to progress thus far include: Current participation in physical therapy for alternate impairment related to recent injury and psychosocial factors related to chronic pain. Pt would benefit from continuation of physical therapy in the future once improved coordination with pain specific CBT therapist has been established Assessment & Plan (06/10/2024 9:27 AM EDT): Patient is a 38 year old female, s/p neovaginoplasty 06/29/18 referred to Physical Therapy today and chief complaints of pain during walking and sitting and pain during dilation, and spraying of urine. Patient's significant past medical history includes: s/p neovaginoplasty 06/29/18, 20yr hx of tucking, depression. After examination, the patient's signficant impairments include: tenderness and spasm B adductors, post-operative swelling and pain in B labia and tenderness of mons pubis, tenderness of B obturator internus, decreased fascial mobility of the lower abdomen. These findings are consistent with the diagnosis of pelvic floor dysfunction and limit the patient's ability to perform functional activities comfortably. The patient is a good candidate for skilled Physical Therapy to address these impairments, limitations and symptoms to maximize their return to baseline prior level of functioning. Plan for patient to attend therapy for 1x/wk for 1 hour for 4 weeks. Patient is in agreement with the plan. Plan is to progress myofasical mobility, muscle length, scar massage and mobility when able, down train and relaxation as tolerated. Pt has attended 7 out of 11 visits since initial evaluation 04/25/2021. Pt participates in PT sessions and is adherent to HEP. Pt continues to report the following functional limitations: High level of anxiety and fear avoidance behaviors pertaining to dysfunctions in legs and pelvic floor, no improvement in bladder control or pain and worsening balance and walking. Pt demonstrates with the following objective measures: Impaired walking and high levels of anxiety and frustration related to impairments. These findings indicate no improvement since initial evaluation. Potential barriers to progress thus far include: Current participation in physical therapy for alternate impairment related to recent injury and psychosocial factors related to chronic pain. Pt would benefit from continuation of physical therapy in the future once improved coordination with pain specific CBT therapist has been established Assessment & Plan (04/15/2023 2:51 PM EDT): Patient is a 38 year old female, s/p neovaginoplasty 06/29/18 referred to Physical Therapy today and chief complaints of pain during walking and sitting and pain during dilation, and spraying of urine. Patient's significant past medical history includes: s/p neovaginoplasty 06/29/18, 20yr hx of tucking, depression. After examination, the patient's signficant impairments include: tenderness and spasm B adductors, post-operative swelling and pain in B labia and tenderness of mons pubis, tenderness of B obturator internus, decreased fascial mobility of the lower abdomen. These findings are consistent with the diagnosis of pelvic floor dysfunction and limit the patient's ability to perform functional activities comfortably. The patient is a good candidate for skilled Physical Therapy to address these impairments, limitations and symptoms to maximize their return to baseline prior level of functioning. Plan for patient to attend therapy for 1x/wk for 1 hour for 4 weeks. Patient is in agreement with the plan. Plan is to progress myofasical mobility, muscle length, scar massage and mobility when able, down train and relaxation as tolerated. Pt has attended 7 out of 11 visits since initial evaluation 04/25/2021. Pt participates in PT sessions and is adherent to HEP. Pt continues to report the following functional limitations: High level of anxiety and fear avoidance behaviors pertaining to dysfunctions in legs and pelvic floor, no improvement in bladder control or pain and worsening balance and walking. Pt demonstrates with the following objective measures: Impaired walking and high levels of anxiety and frustration related to impairments. These findings indicate no improvement since initial evaluation. Potential barriers to progress thus far include: Current participation in physical therapy for alternate impairment related to recent injury and psychosocial factors related to chronic pain. 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 Changed 07/25/2022 due to back order of depoestradiol. -estradiol level 1 day after injection was 3,758 04/16/2023. Pt advised to immediately hold estradiol and recheck level. -change to estradiol valerate 20mg/Ml q 2 weeks 05/04/2023 Assessment & Plan (04/15/2023 2:50 PM EDT): 38yo male to female transgender woman who is POD3 s/p neovaginoplasty on 06/29, recovering well on the floor. N- pain control, epidural removal today PO pain meds with APAP, and PO Oxycodone prn CV- routine vitals P- IS/ICOUGH GI - Regular diet, IVF, bowel regimen - [place] and vaginal bolster dressing place x1 week, xerofrom gauze over lisa-clitoris ID- perioperative Ancef/flagyl completed PPX- Venodynes, Lovenox Dispo- continue floor level of care. Epidural removal today then OOB as tolerated Dysuria 04/22/2012 06/10/2024 Encounters Date Type Department Care Team Description 11/17/2024 Telephone [facility] [address] [place] [phone] Sudha Richardson MD Medication Question 11/08/2024 Telephone [facility] [address] [place] [address] [phone] Sudha Richardson MD Durable Medical Equipment 10/31/2024 2:00 PM EST Clinical Support [facility] [address] [place] [phone] Weight disorder (Primary Dx) 10/31/2024 Travel 09/28/2024 3:15 PM EST Office Visit [facility] [address] [place] [phone] Sudha Richardson MD Other specified health status (Primary Dx); Gender dysphoria in adult; Gender identity disorder of adulthood; Urinary incontinence, unspecified type; Dermatitis; Seasonal allergies; Vitamin D deficiency; Vitamin deficiency; Constipation, unspecified constipation type 09/28/2024 Travel 09/28/2024 Telephone [facility] [address] [place] [phone] Jannie Corea, RN Results 09/27/2024 Orders Only [address] [address] Sudha Richardson MD Vitamin D deficiency (Primary Dx) 09/26/2024 3:30 PM EST Clinical Support [facility] [address] [place] [phone] Weight disorder (Primary Dx) 09/26/2024 Travel 09/05/2024 3:40 PM EST Office Visit [facility] [address] [place] [phone] Grabiel Sanders MD Seasonal allergies (Primary Dx); Dermatitis 09/05/[address] [phone] Sudha Richardson MD Nurse Triage 09/05/[address] [phone] Susan Campos MA Durable Medical Equipment 08/31/2024 Orders Only [address] [address] Sudha Richardson MD 08/26/2024 2:00 PM EST Nutrition [facility] [address] [place] [phone] Weight disorder 08/26/[address] [address] Whitley Sosa MA Error (VOID this visit) 08/26/2024 Travel 08/24/[address] [address] Sudha Richardson MD Medication Question from Last 3 Months Immunizations Name Administration Dates Next Due Hep A, Adult 04/15/2023,07/21/2019 Hep B, adult 08/12/2023,04/15/2023,07/21/2019 Influenza injectable quadriv alent IIV4 with preservative 08/27/2017,07/17/2016 Influenza injectable quadriv alent preservative free 07/21/2019,09/27/2015 Influenza, IIV3, injectable 10/09/2014 Influenza, Split (incl. roni fied surface antigen) 09/01/2013 Moderna Covid-19 Vaccine 12+ 04/05/2021,03/08/20 21 TD (adult), 2 Lf tetanus tox oid, preservative free, adsorbed 02/05/2024 Tdap 07/17/2016 Social History Tobacco Use Types Packs/Day Years Used Date Smoking Tobacco: Former Cigarettes Passive Smoke Exposure: Current Smokeless Tobacco: Former Quit: 12/18/2023 Tobacco Cessation:Counseling Given: Not Answered Alcohol Use Standard Drinks/Week Comments Never 0 [...] not to disclose 2021 10:14 AM EDT Last Filed Vital Signs Vital Sign Reading Time Taken Comments Blood Pressure 122/83 09/28/2024 3:10 PM EST Pulse 81 09/28/2024 3:10 PM EST Temperature 36.2 ??C (97.1 ??F) 09/28/2024 3:10 PM ES T Respiratory Rate 20 09/28/2024 3:10 PM EST Oxygen Saturation 100% 09/28/2024 3:10 PM EST Inhaled Oxygen Concentration - - Weight 85.4 kg (188 lb 3.2 oz) 10/31/2024 4:35 P M EST Height 170.2 cm (5' 7 ) 10/31/2024 4:35 PM EST Body Mass Index 29.48 10/31/2024 4:35 PM EST Plan of Treatment Upcoming Encounters Date Type Department Care Team (Late st Contact Info) Description 12/06/2024 1:30 PM EST Clinical Support [facility] [address] [place] [address] [place] [address] Health Maintenance Due Date Last Done Comments SDOH Screening 11/03/2024 11/03/2023 Depression Monitoring (PHQ-9) 12/11/2024 06/10/2024, 06/10/2024 Influenza Vaccine (#1) 2025 9, 08/27/2017, 07/17/2016, Additional history exists Postponed from 06/19/2024 (Patient Refused) Depression Screening 06/10/2025 06/10/2024, 06/10/20 24 Family Planning (PISQ) 06/10/2025 06/10/2024 Alcohol/Substance Use Screening 09/28/2025 09/28/2024 COVID-19 Vaccine ( season) 2025 04/05/2021, 03/08/2021 Postponed from 06/19/2024 (Patient Refused) Tobacco Screening 09/28/2025 09/28/2024 Mammogram 05/26/2026 05/26/2024, 08/0 12/2022, 05/21/2023 Lipid Panel 04/16/2028 04/16/2023, 01/24/2022 Zoster Vaccines (1 of 2) 2033 DTaP/Tdap/Td Vaccines (3 - Td or Tdap) 02/04/2034 02/05/2024, 07/17/2016 RSV Patients and Patients Aged 60 years or older (1 - 1-dose 75+ series) 2058 Hepatitis A Vaccines Completed 04/15/2023, 07/21/20 19 HIV Screening Completed 08/12/2023, 03/20, 04/11/2022, Additional history exists Hepatitis B Vaccines Completed 08/12/2023, 04/15/2023, 07/21/2019 Hepatitis C Screening Completed 08/12/2023, 023 HIB Vaccines Aged Out No longer eligi ble based on patient's age to complete this topic HPV Vaccines Aged Out No longer eligi ble based on patient's age to complete this topic IPV Vaccines Aged Out No longer eligi ble based on patient's age to complete this topic Meningococcal Vaccine Aged Out No greg jeevan eligible based on patient's age to complete this topic Pneumococcal Vaccine: Pediatrics (0 to 5 Years) and At-Risk Patients (6 to 49) Years) Aged Out No longer eligible based on patient's age to complete this topic RSV under 20 months Aged Out No longe r eligible based on patient's age to complete this topic Rotavirus Vaccines Aged Out No longer eligible based on patient's age to complete this topic Procedures Procedure Name Priority Date/Time Associated Diagnosis Comments VITAMIN D,25-OH,TOTAL,IA Routine 09/27/2024 11:02 AM EST Gender dysphoria in adult TSH W/REFLEX TO FT4 Routine 09/27/2024 1 1:02 AM EST Gender dysphoria in adult BASIC METABOLIC PANEL Routine 09/27/2024 11:02 AM EST Gender dysphoria in adult ESTRADIOL Routine 09/27/2024 11:02 AM EST Gender dysphoria in adult TESTOSTERONE, TOTAL, MALES (ADULT), IA Routine 09/27/2024 11:02 AM EST Gender dysphoria in adult HEPATIC FUNCTION PANEL Routine 09/27/2024 11:02 AM EST Gender dysphoria in adult BI MAMMOGRAM SCREEN W DAVID W IMPLANTS ROCKY Routine 05/26/2024 2:20 PM EDT HEPATITIS C AB W/REFL TO HCV RNA, QN, PCR Routine 08/12/2023 3:53 PM EDT Routine screening for STI (sexually transmitted infection) HIV ANTIBODY/ANTIGEN ([place] [facility]) Routine 08/12/2023 3:53 PM EDT LIPID PANEL, STANDARD Routine 04/16/2023 11:43 AM EDT Gender identity disorder of adulthood from Last 3 Months or Most Recently Relevant to Health Maintenance Results * (ABNORMAL) Vitamin D, 25-Hydroxy, Total, Immunoassay (09/27/2024 11:02 AM EST) Vitamin D 25-OH Total 17.5(L) >30 ng/mL [facility] Comment:Health Based Referen ce Values*< 20 ng/mL Qcsvgnncq42-89 ng/mL Insufficient> 30 ng/mL Sufficient*Salvador RIOS. N Engl J Med. 2007;357:266-280Care must be taken in interpreting Vitamin D results fromdifferent laboratories and methodologies. Published datademonstrated that results from patients undergoinghemodialysis may show a negative bias when tested withvarious automated 25-OH vitamin D assays when compared toLC-MS/MS.When testing samples from patients whose predominant form ofVitamin D is Vitamin D2, such as patients receiving VitaminD2 supplementation, results that are subtherapeutic shouldbe confirmed with another method such as LC-MS/MS. Blood Venous blood specimen / Unknown 09/27/2024 11:02 AM EST 09/27/2024 11:31 AM EST Sudha Richardson MD LAB BLOOD ORDERABLES Final Result Performing Organization Address [facility]/ZIP Co de Phone Number [facility] [address] [place] [phone] * TSH W/Reflex to FT4 (09/27/2024 11:02 AM EST) TSH reflex Free T4 1.74 0.32 - 4.0 uIU/mL [facility] Blood Venous blood specimen / Unknown 09/27/2024 11:02 AM EST 09/27/2024 11:31 AM EST Sudha Richardson MD LAB BLOOD ORDERABLES Final Result Performing Organization Address [facility] Phone Number [facility] [address] [place] [phone] * Estradiol (09/27/2024 11:02 AM EST) Estradiol Ultra Sensitive 35 pg/mL [facility] Comment:Female Reference Ran ges for Estradiol, Ultrasensitive (pg/mL): Follicular Phase: 39-375 Luteal Phase: 48-440 Postmenopausal Phase: < or = 10This test was developed and its analytical performancecharacteristics have been determined by [employer].It has not been cleared or approved by FDA. This assay hasbeen validated pursuant to the CLIA regulations and is usedfor clinical purposes.THIS TEST WAS PERFORMED AT:[employer]/GILE [id number] [facility] [place] [address]HSBQPBLANCA MARIE MD,PHD,BIJU Blood Venous blood specimen / Unknown 09/27/2024 11:02 AM EST 09/27/2024 11:45 AM EST Sudha Richardson MD LAB BLOOD ORDERABLES Final Result Performing Organization Address [facility] Co de Phone Number [facility] [address] [place] [phone] * Testosterone, Total, males (Adult), IA (09/27/2024 11:02 AM EST) Testosterone, Total 17 2 - 45 ng/dL [facility] Comment:For additional infor alexa, please refer tohttp://[email or web address] Contact/faq/[email or web address](This link is being provided for informational/educational purposes only.)This test was developed and its analytical performancecharacteristics have been determined by [employer] [place], [place]. It hasnot been cleared or approved by the U.S. Food and DrugAdministration. This assay has been validated pursuantto the CLIA regulations and is used for clinicalpurposes.THIS TEST WAS PERFORMED AT:[employer]/[facility] [place] [address]ESYKNIVVIKY PRITCHARD MD,PHD Blood Venous blood specimen / Unknown 09/27/2024 11:02 AM EST 09/27/2024 11:45 AM EST us Sudha Richardson MD LAB BLOOD ORDERABLES Final Result [facility] [address] [place] [phone] * (ABNORMAL) Hepatic Function Panel (09/27/2024 11:02 AM EST) Bilirubin, Total 1.5(H) 0.0 - 1.0 mg/dL [facility] Bilirubin, Direct 0.4 0.0 - 0.5 mg/dL [facility] Aspartate Amino Transferase 23 5 - 31 U/L [facility] Alanine Aminotransferase 27 0 - 31 U/L [facility] Total Protein 7.1 6.5 - 8.0 g/dL [facility] Albumin Level 4.4 3.5 - 5.0 g/dL [facility] Alkaline Phosphatase 77 39 - 117 U/L [facility] Blood Venous blood specimen / Unknown 09/27/2024 11:02 AM EST 09/27/2024 11:31 AM EST Sudha Richardson MD LAB BLOOD ORDERABLES Final Result Performing Organization Address [facility]/ZIP Co de Phone Number [facility] [address] [place] [address] [phone] * (ABNORMAL) Basic Metabolic Panel (09/27/2024 11:02 AM EST) Sodium 139 135 - 145 mmol/L [facility] Potassium 3.8 3.3 - 5.1 mmol/L [facility] Chloride 104 96 - 108 mmol/L [facility] Carbon Dioxide 28 22 - 29 mmol/L [facility] Anion Gap 11(L) 12 - 20 [facility] Urea Nitrogen (BUN) 11 9 - 16 mg/dL [facility] Creatinine, Serum 0.71 0.5 - 1.4 mg/dL [facility] Estimated Glomerular Filt Rate >60 [facility] Comment:Chronic Kidney Disea se: Estimated GFR < 60 mL/min/1.57p8Wfoqxr Kidney Disease: Estimated GFR < 15 mL/min/1.73m2 Glucose 92 60 - 115 mg/dL [facility] Calcium 8.9 8.4 - 10.2 mg/dL [facility] Blood Venous blood specimen / Unknown 09/27/2024 11:02 AM EST 09/27/2024 11:31 AM EST Sudha Richardson MD LAB BLOOD ORDERABLES Final Result Performing Organization Address City/[facility]/ZIP Co de Phone Number [facility] [address] [place] [address] [phone] * BI Mammogram Screen w/ David w/ Implants Rocky (05/26/2024 2:20 PM EDT) Anatomical Region Laterality Modality Mammography 05/26/2024 2:20 PM EDT Narrative 06/23/2024 12:00 PM EDT ? [facility] ? [address] ?[place] [address] ? Mammography Report ? Signed ? Patient: Faraz Faraz,Cherri ?MR ?? #: [id number] ? : 1985 ?Acct:[id number] ? Age/Sex: 39 / F ?ADM Date: 05/26/24 ? Loc: HO.MAMMO ? Attending Dr: Sudha Richardson MD ? Ordering Physician: Sudha Richardson MD ?Results: 1N ?? egative ? Date of Service: 05/26/24 ?Follow Up: 1 Year From Orig ?? inal Mammogram ? Procedure(s): MM tomosynthesis screen imp BI ?? Accession Number(s): [id number] ? cc: Sudha Richardson MD ? EXAMINATION: ?? MM SCREENING DIGITAL BREAST TOMOSYNTHESIS, BILATERAL category D ?? CLINICAL INFORMATION: ? Screening. Asymptomatic. ? COMPARISON: ?? Mammography: This study is compared with the prior mammogram from 2022. ? TECHNIQUE: ?? Digital breast tomosynthesis is performed in both the craniocaudal and ?? mediolateral oblique views along with computer-aided detection (CAD). ?? Direct 2-D mammographic images are also obtained. ? FINDINGS: ?? The breasts are extremely dense, which lowers the sensitivity of ?? mammography (ACR BI-RADS breast composition Category d). ? There are bilateral, mammographically intact silicone breast implants. ? There are no significant masses, abnormal calcifications, or other ?? abnormalities. ? MM/MM tomosynthesis screen imp BI ?? IMPRESSION: ?? No mammographic evidence of malignancy. ? ASSESSMENT: ? BI-RADS BI-RADS 1 - Negative ? RECOMMENDATION: ?? Routine annual mammography screening. ? 1 year F/U ? This examination should not preclude the clinical evaluation of a ?? suspicious palpable abnormality. ? This patient's information was entered into a reminder system with a ?? target due date for their next mammogram. ? Electronically signed by: ??Francisca Lafleur MD ??06/23/2024 11:57 AM EDT RP ? Dictated By: ?Francisca Lafleur MD ? Signed By: ?<Electronically signed by Francisca Lafleur MD in OV> ? 06/23/24 1157 ? DD/ 1420 ? TD/TT: 05/26/24 1444 ? Dining Room Host: ? Procedure Note Ranjeet, Image - 06/23/2024 [facility] [address] [place], [place] [address] Mammography Report Signed Patient: Brad Booth #: [id number] : 1985Acct:[id number] Age/Sex: 39 / FADM Date: 05/26/24 Loc: HO.MAMMO Attending Dr: Sudha Richardson MD Ordering Physician: Sudha Richardson MDResults: 1N egative Date of Service: 05/26/24Follow Up: 1 Year From Orig inal Mammogram Procedure(s): MM tomosynthesis screen imp BI Accession Number(s): [id number] cc: Sudha Richardson MD EXAMINATION: MM SCREENING DIGITAL BREAST TOMOSYNTHESIS, BILATERAL category D CLINICAL INFORMATION: Screening. Asymptomatic. COMPARISON: Mammography: This study is compared with the prior mammogram from 2022. TECHNIQUE: Digital breast tomosynthesis is performed in both the craniocaudal and mediolateral oblique views along with computer-aided detection (CAD). Direct 2-D mammographic images are also obtained. FINDINGS: The breasts are extremely dense, which lowers the sensitivity of mammography (ACR BI-RADS breast composition Category d). There are bilateral, mammographically intact silicone breast implants. There are no significant masses, abnormal calcifications, or other abnormalities. MM/MM tomosynthesis screen imp BI IMPRESSION: No mammographic evidence of malignancy. ASSESSMENT: BI-RADS BI-RADS 1 - Negative RECOMMENDATION: Routine annual mammography screening. 1 year F/U This examination should not preclude the clinical evaluation of a suspicious palpable abnormality. This patient's information was entered into a reminder system with a target due date for their next mammogram. Electronically signed by: Francisca Lafleur MD 06/23/2024 11:57 AM EDT RP Dictated By: Francisca Lafleur MD Signed By: <Electronically signed by Francisca Lafleur MD in OV> 06/23/24 1157 DD/ 1420 TD/TT: 05/26/24 1444 Dining Room Host: Sudha Richardson MD IMG BI PROCEDURES Edited R esult - Final * HIV Ab/Ag ([place] [facility]) (08/12/2023 3:53 PM EDT) HIV AB/AG Nonreactive Nonreactive [facility] Comment:HIV-1 p24 Ag and/or HIV-1/HIV-2 Ab not detected.A test result that is nonreactive does not exclude thepossibility of exposure to or infection with HIV-1 and/orHIV-2. Nonreactive results in this assay for individualswith prior exposure to HIV-1 and/or HIV-2 may be due toantigen and antibody levels that are below the limit ofdetection of this assay.The [employer] HIV Ag/Ab Combo assay result andsupplemental assay results should be interpreted inconjunction with the patient's clinical presentation,history and other laboratory results. If the results areinconsistent with clinical evidence, additional testing issuggested to confirm the result. 08/12/2023 3:53 PM EDT 08/12/2023 5:17 PM EDT Sudha Richardson MD LAB BLOOD ORDERABLES Final Result Performing Organization Address City/[facility]/ZIP Co de Phone Number [facility] [address] [place] [address] [phone] * Hepatitis C Antibody with Reflex to HCV, RNA, Quantitative, Real-Time PCR (08/12/2023 3:53 PM EDT) Pathologist [facility] Hepatitis C Antibody Nonreactive Nonreactive [facility] Comment:Antibodies to HCV no t detected; does not exclude early acuteHCV infection. Blood Venous blood specimen / Unknown 08/12/2023 3:53 PM EDT 08/12/2023 5:17 PM EDT Sudha Richardson MD LAB BLOOD ORDERABLES Final Result Performing Organization Address [facility]/ZIP Co de Phone Number [facility] [address] [place] [phone] * (ABNORMAL) Lipid Panel, Standard (04/16/2023 11:43 AM EDT) [facility] Cholesterol, Total 197 <200 mg/dL [facility] [place] [employer] HDL Cholesterol 59 > OR = 50 mg/dL [facility] [place] [employer] Triglycerides 75 <150 mg/dL [facility] LDL Cholesterol 121(H) mg/dL (calc) [facility] Comment: Reference range: <100 Desirable range <100 mg/dL for primary prevention; ?? <70 mg/dL for patients with CHD or diabetic patients with > or = 2 CHD risk factors. LDL-C is now calculated using the Jun calculation, which is a validated novel method providing better accuracy than the Friedewald equation in the estimation of LDL-C. Jarod MARTINEZ et al. JUSTINE. 2013;310(19): 2408-9945 (http://education.[employer].[facility]/faq/QXJ580) Chol/HDLC Ratio 3.3 <5.0 (calc) [facility] Non-HDL Cholesterol 138(H) <130 mg/dL (calc) [facility] Comment: For patients with diabetes plus 1 major ASCVD risk factor, treating to a non-HDL-C goal of <100 mg/dL (LDL-C of <70 mg/dL) is considered a therapeutic option. Blood Venous blood specimen / Unknown 04/16/2023 11:43 AM EDT 04/16/2023 11:44 AM EDT Narrative [facility] - 04/22/2023 11:21 AM EDT FASTING:YES FASTING: YES Sudha Richardson MD LAB BLOOD ORDERABLES Final Result [facility] [address], [place] [address] [facility] [address] [place] [address] from Last 3 Months or Most Recently Relevant to Health Maintenance Insurance [facility] Advance Directives Documents on File Type Date Recorded Patient Profile Grinder Technician Expl anation Advance Directives and Living Will 06/10/2024 Health Care Proxy 06/10/24 Care Teams Calibration Technician Relationship Specialty Start Date End Date Debra, MD Sudha [address] [place] [address] PCP - General Family Medicine 10/19/18 Matthew Woods MD [address] [place] [address] Pain Medicine 09/21/24
--- OUTSIDE RECORDS SUMMARY | 2024-11-17 17:42 | XMS_ITS | Encounter Summary ---
Author Organization [employer] Address [address]t [place] [address] Care Team Providers Care Camper Assembler Name Role Phone Sudha Richardson MD Primary Care Provider +1- [phone] Matthew Woods MD Unavailable Encounter Details Date Type Department Care Team (Latest Contact Info) Description 10/31/2024 2:00 PM EST Clinical Support [facility] DIABETES/NUTRITION [address] [place], [place] [phone] Roberta Mckeon RD [address] [place] [address] Weight disorder (Primary Dx) Social History Tobacco Use Types Packs/Day Years [...] AM EDT documented as of this encounter Last Filed Vital Signs Vital Sign Reading Time Taken Comments Blood Pressure - - Pulse - - Temperature - - Respiratory Rate - - Oxygen Saturation - - Inhaled Oxygen Concentration - - Weight 85.4 kg (188 lb 3.2 oz) 10/31/2024 4:35 P M EST Height 170.2 cm (5' 7 ) 10/31/2024 4:35 PM EST Body Mass Index 29.48 10/31/2024 4:35 PM EST documented in this encounter Progress Notes * Roberta Mckeon, RD - 10/31/2024 2:00 PM EST In Person Visit Medical Diagnosis: R63.8 Weight disorder Anthropometrics: Ht:5' 7 (1.702 m), Wt:188 lb 3.2 oz (85.4 kg), BMI: Body mass index is 29.48 kg/m??. Assessment: Patient (Pt) accepted nutrition education assessment appointment with RD. RD took Pt's weight. Weight revealed an increase since last appointment by five (5) pounds. Pt expressed that she has been holding water weight. Pt told RD that when she takes her testosterone, her weight goes down and has less swelling. RD took 24 hour recall/ typical daily intake from Pt. Intake revealed Pt has indulged in carbohydrates and eating more of them. Pt realizes that just having even portion sizes for her, she puts on weight. It's not the portion size for Pt, its how many serving overall of carbohydrates. In addition, Pt admits that the people that she has been hanging out with have been eating a lot of sweets, beverages that are sweet and drinking. Pt realizes she needs to not be doing these things. Pt expressed that she does at times become anxious and this does nothelp her. Pt agreed to get back on track and stick with her Tailored made meal plan. A follow up appointment is scheduled in the second week of November 2024. Note: Pt talked about Wegovy and other insulin medicines. Pt said that she will talk again with her provider about them. She really wants to take one of these medicine to help her. Food Allergies: NKFA Exercise: Going to physical therapy, walking and counting steps (about 20) then rest due to pain in back/ nerves. Food Intolerance: None mentioned Food Preferences: Sugar, coffee, lemon, cinnamon, chicken, tuna, rice, beans, mashed potatoes, grilled cheese, soups-home made, Caesar salads, chicken breast, lettuce, tomatoes, silver, chicken wings, mayonnaise, Dortios, water Food Dislikes: Didn't say Frequency of Eating Out/ Restaurant: Not a norm Who Cooks?: Patient How much caffeine?: coffee 3-4+ cups /day How much sugary beverages?: Coffee, 3+ cups per day made with sugar: 1+ tablespoons per cup Diet History: Breakfast: Oatmeal: 1/2 cup Coffee: 3/4 cup Creamora: 3-4 teaspoons Snack: None Water: 1+ cups Lunch: Fresh salad: 1+ cups Coffee: 3/4 cup Creamora: 3-4 teaspoons Snack: none Dinner: Didn't say Snack: Didn't say Nutrition Diagnosis: NC-3.3 Overweight related to excessive energy intake with limited physical activity as evidence by 24 hour recall/ typical daily intake and BMI >28. Nutrition Intervention: RD expressed for Pt to get back to what she was originally doing- protein and fresh vegetables. Pt agreed to get back to doing this. Goals: Eat two carbohydrates for breakfast, lunch and dinner Eat one carbohydrate for mid morning and mid afternoon snacks Eat a fresh salad > one cup at both lunch and dinner Eat protein and fats as advised in meal plan Drink water as beverage of choice-> 6-8 glasses and/ or Crystal Light/ Sugar free Exercise at least 30 minutes per day Use extra virgin olive oil(EVOO) after cooking on foods-> don't cook with EVOO Monitoring and Evaluation: Indicator Criteria Adherence frequency of eating, portion controls, carbohydrate exchanges, protein intake Weight Loss BMI, exercise routine and frequency Provider: Roberta Mckeon RD, LDN documented in this encounter Plan of Treatment Upcoming Encounters Date Type Department Care Team (Late st Contact Info) Description 12/06/2024 1:30 PM EST Clinical Support [facility] DIABETES/NUTRITION [address] [place] [address] [place] [address] documented as of this encounter Visit Diagnoses Diagnosis Weight disorder- Primary documented in this encounter Additional Health Concerns Assessment Noted Time PHQ-9 Depression Total Score: 24 024 9:39 AM EDT documented as of this encounter Care Teams Camper Assembler Relationship Specialty Start Date End Date Sudha Richardson MD [address] [place] [address] PCP - General Family Medicine 10/19/18 Matthew Woods MD [address] [place] [address] [address] [place] [address] Pain Medicine 09/21/24 documented as of this encounter
--- OUTSIDE RECORDS SUMMARY | 2024-11-17 17:42 | XMS_ITS | Encounter Summary ---
Author Organization [employer] Address [address] [place] [address] Care Team Providers Care Set Up Mechanic Coating Machines Name Role Phone Sudha Richardson MD Primary Care Provider +1- [phone] Matthew Woods MD Unavailable Reason for Visit * Reason Onset Date Comments Durable Medical Equipment 05/20/2023 Encounter Details Date Type Department Care Team (Late st Contact Info) Description 05/20/2023 Telephone [facility] MEDICINE [address] [place], [place] [phone] Sudha Richardson MD [address] [place], [place] [phone] Durable Medical Equipment Social History Tobacco Use [...] encounter Miscellaneous Notes * Telephone Encounter - Corrine Seo RN - 05/21/2023 12:46 PM EDT Tc from pt requesting DME script for pull-ups (XL), wipes, and bed pads to be sent to [facility] Scripts generated and placed on PCP desk for signature. * Telephone Encounter - Blanka Richardson - 05/20/2023 12:41 PM EDT Tc from pt requesting DME script for pull-ups (XL), wipes, and bed pads to be sent to [facility] documented in this encounter Plan of Treatment Upcoming Encounters Date Type Department Care Team (Late st Contact Info) Description 12/06/2024 1:30 PM EST Clinical Support [facility] DIABETES/NUTRITION [address] [place] [address] Roberta Mckeon, CHARLA [address] [place] [address] documented as of this encounter Visit Diagnoses Not on filedocumented in this encounter Additional Health Concerns Assessment Noted Time PHQ-9 Depression Total Score: 0 12/26/19 23 2:59 PM EST documented as of this encounter Care Teams Set Up Mechanic Coating Machines Relationship Specialty Start Date End Date Sudha Richardson MD [address] [place] [address] PCP - General Family Medicine 10/19/18 Matthew Woods MD [address] [place] [address] Pain Medicine 09/21/24 documented as of this encounter
--- OUTSIDE RECORDS SUMMARY | 2024-11-17 17:42 | XMS_ITS | Encounter Summary ---
Author Organization [employer] Address [address] [place] [address] Care Team Providers Care Hat Renovator Name Role Phone Sudha Richardson MD Primary Care Provider +1- [phone] Matthew Woosd MD Unavailable Encounter Details Date Type Department Care Team (Late st Contact Info) Description 04/22/2023 Orders Only [facility] MEDICINE [address] [place], [place] [phone] Sudha Richardson MD [address] [place], [place] [phone] Gender identity disorder of adulthood (Primary Dx) Social History Tobacco Use Types [...] Description 12/06/2024 1:30 PM EST Clinical Support [facility] DIABETES/NUTRITION [address] [place] [address] Roberta cMkeon, CHARLA [address] [place] [address] Scheduled Orders Name Type Priority Associated Diagnoses Orde r Schedule Estradiol Lab Routine Gender identity disorder of adulthood Expected: 04/22/2023, Expires: 04/22/2024 documented as of this encounter Visit Diagnoses Diagnosis Gender identity disorder of adulthood- Primary Gender identity disorder in adolescents or adults documented in this encounter Additional Health Concerns Assessment Noted Time PHQ-9 Depression Total Score: 0 12/26/19 23 2:59 PM EST documented as of this encounter Care Teams Hat Renovator Relationship Specialty Start Date End Date Sudha Richardson MD [address] [place] [address] PCP - General Family Medicine 10/19/18 Matthew Woods MD [address] [place] [address] Pain Medicine 09/21/24 documented as of this encounter
--- OUTSIDE RECORDS SUMMARY | 2024-11-17 17:42 | XMS_ITS | Encounter Summary ---
Author Organization [employer] Address [address] 7[address] [place] [address] Care Team Providers Care Automatic Transmission Mechanic Name Role Phone Sudha Richardson MD Primary Care Provider +1- [phone] Matthew Woods MD Unavailable Encounter Details Date Type Department Care Team (Late st Contact Info) Description 02/09/2023 Orders Only [facility] MEDICINE [address] [place], [place] [phone] Sudha Richardson MD [address] [place], [place] [phone] Social History Tobacco Use Types Packs/Day Years [...] Support [facility] DIABETES/NUTRITION [address] [place] [address] Roberta Mckeon, RD [address] [place], [place] [phone] documented as of this encounter Visit Diagnoses Not on filedocumented in this encounter Additional Health Concerns Assessment Noted Time PHQ-9 Depression Total Score: 0 12/26/19 23 2:59 PM EST documented as of this encounter Care Teams Automatic Transmission Mechanic Relationship Specialty Start Date End Date Sudha Richardson MD [address] [place], [place] [phone] PCP - General Family Medicine 10/19/[address] [place] [address] Pain Medicine 09/21/24 documented as of this encounter
--- OUTSIDE RECORDS SUMMARY | 2024-11-17 17:42 | XMS_ITS | Encounter Summary ---
Author Organization [employer] Address [address] [place] [address] Care Team Providers Care Fibre Cement Moulder Name Role Phone Sudha Richardson MD Primary Care Provider +1- [phone] Matthew Woods MD Unavailable Reason for Visit * Reason Onset Date Comments Referral 12/11/2022 Encounter Details Date Type Department Care Team (Late st Contact Info) Description 12/11/2022 Telephone [facility] MEDICINE [address] [place], [place] [phone] Sudha Richardson MD [address] [place], [place] [phone] Referral Social History Tobacco Use Types Packs/Day Years [...] PM EST documented as of this encounter Miscellaneous Notes * Telephone Encounter - Sudha Richardson MD - 12/25/2022 3:31 PM EST Referral for MTM. Pt is homebound. * Telephone Encounter - Светлана Glen Smith - 12/11/2022 9:39 AM EST Tc from pt requesting a referral to [facility] PT for an 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 Needs a written referral with details. Pt claims that without it, no process can be down. [facility] PT number is [phone] press number 2. Pt states that this is through moose coordinator for pt. Please contact pt [phone] documented in this encounter Plan of Treatment Upcoming Encounters Date Type Department Care Team (Late st Contact Info) Description 12/06/2024 1:30 PM EST Clinical Support [facility] DIABETES/NUTRITION [address] [place] [address] [place] [address] documented as of this encounter Visit Diagnoses Not on filedocumented in this encounter Care Teams Fibre Cement Moulder Relationship Specialty Start Date End Date Sudha Richardson MD [address] [place] [address] PCP - General Family Medicine 10/19/18 Matthew Woods MD [address] [place] [address] Pain Medicine 09/21/24 documented as of this encounter
--- OUTSIDE RECORDS SUMMARY | 2024-11-17 17:42 | XMS_ITS | Encounter Summary ---
Author Organization [employer] Address [address] [place] [address] Care Team Providers Care Unclaimed Property Officer Name Role Phone Sudha Richardson MD Primary Care Provider +1- [phone] Matthew Woods MD Unavailable Encounter Details Date Type Department Care Team (Latest Contact Info) Description 10/31/2024 Travel Social History Tobacco Use Types Packs/Day Years [...] Description 12/06/2024 1:30 PM EST Clinical Support [facility] DIABETES/NUTRITION [address] [place] [address] [place] [address] documented as of this encounter Visit Diagnoses Not on filedocumented in this encounter Additional Health Concerns Assessment Noted Time PHQ-9 Depression Total Score: 24 024 9:39 AM EDT documented as of this encounter Care Teams Unclaimed Property Officer Relationship Specialty Start Date End Date Sudha Richardson MD [address] [place] [address] PCP - General Family Medicine 10/19/18 Matthew Woods MD [address] [place] [address] Pain Medicine 09/21/24 documented as of this encounter
--- OUTSIDE RECORDS SUMMARY | 2024-11-17 17:43 | XMS_ITS | Encounter Summary ---
Author Organization [employer] Address [address] [place] [address] Care Team Providers Care Client Support Administrator Name Role Phone Sudha Richardson MD Primary Care Provider +1- [phone] Matthew Woods MD Unavailable Reason for Visit * Reason Comments Med Refill Encounter Details Date Type Department Care Team (Late st Contact Info) Description 01/23/2023 Refill [facility] MEDICINE [address] [place], [place] [phone] Sudha Richardson MD [address] [place] [address] Gender identity disorder of adulthood Social History Tobacco Use Types Packs/Day Years [...] was confirmed or suspected to have Coronavirus/COVID-19? Unable to assess 01/23/2023 2:01 PM EDT documented as of this encounter Plan of Treatment Upcoming Encounters Date Type Department Care Team (Late st Contact Info) Description 12/06/2024 1:30 PM EST Clinical Support [facility] DIABETES/NUTRITION [address] [place] [address] [place] [address] documented as of this encounter Visit Diagnoses Diagnosis 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 documented in this encounter Additional Health Concerns Assessment Noted Time PHQ-9 Depression Total Score: 0 12/26/19 23 2:59 PM EST documented as of this encounter Care Teams Client Support Administrator Relationship Specialty Start Date End Date Sudha Richardson MD [address] [place] [address] PCP - General Family Medicine 10/19/18 Matthew Woods MD [address] [place] [address] Drive [address] [place] [address] Pain Medicine 09/21/24 documented as of this encounter
== END 2024-11-17 14:16 | disposition home or self-care (01) ==
PROVIDERS: PCP Family Medicine; Visit Provider Anesthesiology
DX: G89.4 Chronic pain syndrome (principal); M17.0 Bilateral primary osteoarthritis of knee; M47.816 Spondylosis without myelopathy or radiculopathy, lumbar region; Z79.891 Long term (current) use of opiate analgesic; M25.50 Pain in unspecified joint; M25.561 Pain in right knee; M25.562 Pain in left knee
CPT/HCPCS: 99213

== ENCOUNTER → 2024-11-17 13:51 | Outpatient (BNVA) | payer OTHER, SELFPAY | PROVIDERS: PCP Family Medicine; Visit Provider Anesthesiology | DX: G89.4 Chronic pain syndrome (principal); M17.0 Bilateral primary osteoarthritis of knee; M47.816 Spondylosis without myelopathy or radiculopathy, lumbar region; M25.50 Pain in unspecified joint; M25.561 Pain in right knee; M25.562 Pain in left knee; F11.90 Opioid use, unspecified, uncomplicated; Z51.81 Encounter for therapeutic drug level monitoring | CPT/HCPCS: 99212 ==

== ENCOUNTER 2024-12-12 14:28 | Outpatient (REF) | payer OTHER, SELFPAY ==
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
--- OUTSIDE RECORDS SUMMARY | 2024-12-12 16:43 | XMS_ITS | Encounter Summary ---
Author Organization [employer] Address [address] [place] [address] Care Team Providers Care Senior Care Manager Name Role Phone Sudha Richardson MD Primary Care Provider +1- [phone] Matthew Woods MD Unavailable Encounter Details Date Type Department Care Team (Late st Contact Info) Description 08/31/2024 Orders Only [facility] MEDICINE [address] [place], [place] [phone] Sudha Richardson MD [address] [place], [place] [phone] Social History Tobacco Use Types Packs/Day Years [...] Description 02/14/2025 1:30 PM EDT Clinical Support [facility] DIABETES/NUTRITION [address] [place] [address] [place] [address] documented as of this encounter Visit Diagnoses Not on filedocumented in this encounter Additional Health Concerns Assessment Noted Time PHQ-9 Depression Total Score: 24 024 9:39 AM EDT documented as of this encounter Care Teams Senior Care Manager Relationship Specialty Start Date End Date Sudha Richardson MD 230 [place] [address] PCP - General Family Medicine 10/19/18 Matthew Woods MD [address] [place] [address] Pain Medicine 09/21/24 documented as of this encounter
--- OUTSIDE RECORDS SUMMARY | 2024-12-12 16:43 | XMS_ITS | Encounter Summary ---
Author Organization [employer] Address [address] [place] [address] Care Team Providers Care Java Designer Name Role Phone Sudha Richardson MD Primary Care Provider +1- [phone] Matthew Woods MD Unavailable Encounter Details Date Type Department Care Team (Late st Contact Info) Description 05/07/2023 Orders Only [facility] MEDICINE 230 [place], [place] [phone] Sudha Richardson MD 230 [place], [place] [phone] Gender dysphoria in adult Social History Tobacco [...] Description 02/14/2025 1:30 PM EDT Clinical Support [facility] DIABETES/NUTRITION 230 [place] [address] Roberta Mckeon, CHARLA 230 [place] [address] documented as of this encounter Visit Diagnoses Diagnosis Gender dysphoria in adult documented in this encounter Additional Health Concerns Assessment Noted Time PHQ-9 Depression Total Score: 0 12/26/19 23 2:59 PM EST documented as of this encounter Care Teams Java Designer Relationship Specialty Start Date End Date Sudha Richardson MD [address] [place] [address] PCP - General Family Medicine 10/19/18 Matthew Woods MD [address] [place] [address] Drive [address] [place] [address] Pain Medicine 09/21/24 documented as of this encounter
--- OUTSIDE RECORDS SUMMARY | 2024-12-12 16:43 | XMS_ITS | Encounter Summary ---
Author Organization [employer] Address [address] [place] [address] Care Team Providers Care Stack Attendant Name Role Phone Sudha Richardson MD Primary Care Provider +1- [phone] Matthew Woods MD Unavailable Reason for Visit * Reason Onset Date Comments Referral 12/11/2022 Encounter Details Date Type Department Care Team (Late st Contact Info) Description 12/11/2022 Telephone [facility] MEDICINE [address] [place], [place] [phone] Sudha Richardson MD 230 [place], [place] [phone] Referral Social History Tobacco Use Types Packs/Day [...] Tc from pt requesting a referral to [facility] for an 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 Needs a written referral with details. Pt claims that without it, no process can be down. [facility] number is [phone] press number 2. Pt states that this is through [facility] coordinator for pt. Please contact pt [phone] documented in this encounter Plan of Treatment Upcoming Encounters Date Type Department Care Team (Late st Contact Info) Description 02/14/2025 1:30 PM EDT Clinical Support [facility] DIABETES/NUTRITION [address] [place] [address] [place] [address] documented as of this encounter Visit Diagnoses Not on filedocumented in this encounter Care Teams Stack Attendant Relationship Specialty Start Date End Date Sudha Richardson MD 230 [place] [address] PCP - General Family Medicine 10/19/18 Matthew Woods MD [address] [place] [address] Pain Medicine 09/21/24 documented as of this encounter
--- OUTSIDE RECORDS SUMMARY | 2024-12-12 16:43 | XMS_ITS | Encounter Summary ---
Author Organization [employer] Address [address] [place] [address] Care Team Providers Care Hvac R Tech Name Role Phone Debra, Sudha FROST Primary Care Provider +1- [phone] Matthew Woods MD Unavailable Reason for Visit * Reason Comments Med Refill Encounter Details Date Type Department Care Team (Late st Contact Info) Description 01/06/2024 Refill [facility] MEDICINE 230 [place], [place] [phone] Atiya Alegria MD 230 [place] [address] Urinary incontinence, unspecified type Social History Tobacco [...] Description 02/14/2025 1:30 PM EDT Clinical Support [facility] DIABETES/NUTRITION [address] [place] [address] 230 [place] [address] documented as of this encounter Visit Diagnoses Diagnosis Urinary incontinence, unspecified type documented in this encounter Additional Health Concerns Assessment Noted Time PHQ-9 Depression Total Score: 0 12/26/19 23 2:59 PM EST documented as of this encounter Care Teams Hvac R Tech Relationship Specialty Start Date End Date Sudha Richardson MD [address] [place] [address] PCP - General Family Medicine 10/19/18 Matthew Woods MD [address] [place] [address] Pain Medicine 09/21/24 documented as of this encounter
--- OUTSIDE RECORDS SUMMARY | 2024-12-12 16:43 | XMS_ITS | Encounter Summary ---
Author Organization [employer] Address [address] [place] [address] Care Team Providers Care Events Administrative Assistant Name Role Phone Sudha Richardson MD Primary Care Provider +1- [phone] Matthew Woods MD Unavailable Reason for Visit * Reason Comments Med Refill Encounter Details Date Type Department Care Team (Late st Contact Info) Description 01/23/2023 Refill [facility] MEDICINE 230 [place], [place] [phone] Sudha Richardson MD [address] [place] [address] Gender identity disorder of adulthood Social History [...] Description 02/14/2025 1:30 PM EDT Clinical Support [facility] DIABETES/NUTRITION 230 [place] [address] [place] [address] documented as of this encounter Visit Diagnoses Diagnosis 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
--- OUTSIDE RECORDS SUMMARY | 2024-12-12 16:43 | XMS_ITS | Encounter Summary ---
Author Organization [employer] Address [address] [facility] [place] [address] Care Team Providers Care Engineering Scientist Name Role Phone Sudha Richardson MD Primary Care Provider +1- [phone] Matthew Woods MD Unavailable Encounter Details Date Type Department Care Team (Late st Contact Info) Description 11/06/2023 Telephone [facility] MEDICINE 230 [place], [place] [phone] Sudha Richardson MD 230 [place], [place] [phone] Social History Tobacco Use Types Packs/Day Years [...] Description 02/14/2025 1:30 PM EDT Clinical Support [facility] DIABETES/NUTRITION 230 [place] [address] Roberta Mckeon, RD 230 [place] [address] documented as of this encounter Visit Diagnoses Not on filedocumented in this encounter Additional Health Concerns Assessment Noted Time PHQ-9 Depression Total Score: 0 12/26/19 23 2:59 PM EST documented as of this encounter Care Teams Engineering Scientist Relationship Specialty Start Date End Date Sudha Richardson MD 230 [place] [address] PCP - General Family Medicine 10/19/18 Matthew Woods MD [address] [place] [address] Pain Medicine 09/21/24 documented as of this encounter
--- OUTSIDE RECORDS SUMMARY | 2024-12-12 16:43 | XMS_ITS | Encounter Summary ---
Author Organization [employer] Address [address] [place] [address] Care Team Providers Care Laundry Helper Name Role Phone Sudha Richardson MD Primary Care Provider +1- [phone] Matthew Woods MD Unavailable Encounter Details Date Type Department Care Team (Latest Contact Info) Description 12/06/2024 Travel Social History Tobacco Use Types Packs/Day [...] Description 02/14/2025 1:30 PM EDT Clinical Support [facility] DIABETES/NUTRITION [address] [place] [address] 230 [place] [address] documented as of this encounter Visit Diagnoses Not on filedocumented in this encounter Additional Health Concerns Assessment Noted Time PHQ-9 Depression Total Score: 24 024 9:39 AM EDT documented as of this encounter Care Teams Laundry Helper Relationship Specialty Start Date End Date Sudha Richardson MD 230 [place] [address] PCP - General Family Medicine 10/19/18 Matthew Woods MD [address] [place] [address] Pain Medicine 09/21/24 documented as of this encounter
--- OUTSIDE RECORDS SUMMARY | 2024-12-12 16:43 | XMS_ITS | Encounter Summary ---
Author Organization [employer] Address [address] [place] [address] Care Team Providers Care Maintenance Technician 3Rd Shift Name Role Phone Sudha Richardson MD Primary Care Provider +1- [phone] Matthew Woods MD Unavailable Reason for Visit * Reason Onset Date Comments Error 01/05/2024 Encounter Details Date Type Department Care Team ([facility] st Contact Info) Description 01/05/2024 Telephone [facility] MEDICINE [address] [place], [place] [phone] Sudha Richardson MD 230 [place], [place] [phone] Error Social History Tobacco Use Types Packs/Day [...] Description 02/14/2025 1:30 PM EDT Clinical Support [facility] DIABETES/NUTRITION [address] [place] [address] 230 [place] [address] documented as of this encounter Visit Diagnoses Not on filedocumented in this encounter Additional Health Concerns Assessment Noted Time PHQ-9 Depression Total Score: 0 12/26/19 23 2:59 PM EST documented as of this encounter Care Teams Maintenance Technician 3Rd Shift Relationship Specialty Start Date End Date Sudha Richardson MD 230 [place] [address] PCP - General Family Medicine 10/19/18 Matthew Woods MD [address] [place] [address] Pain Medicine 09/21/24 documented as of this encounter
--- OUTSIDE RECORDS SUMMARY | 2024-12-12 16:43 | XMS_ITS | Encounter Summary ---
Author Organization [employer] Address [address] 7t [place] [address] Care Team Providers Care Building Code Inspector Name Role Phone Sudha Richardson MD Primary Care Provider +1- [phone] Matthew Woods MD Unavailable Reason for Visit * Reason Onset Date Comments Durable Medical Equipment 05/20/2023 Encounter Details Date Type Department Care Team (Late st Contact Info) Description 05/20/2023 Telephone [facility] MEDICINE [address] [place], [place] [phone] Sudha Richardson MD [address] [place], [place] [phone] Durable Medical Equipment Social History Tobacco Use [...] Description 02/14/2025 1:30 PM EDT Clinical Support [facility] DIABETES/NUTRITION [address] [place] [address] Roberta Mckeon, CHALRA [address] [place] [address] documented as of this encounter Visit Diagnoses Not on filedocumented in this encounter Additional Health Concerns Assessment Noted Time PHQ-9 Depression Total Score: 0 12/26/19 23 2:59 PM EST documented as of this encounter Care Teams Building Code Inspector Relationship Specialty Start Date End Date Sudha Richardson MD [address] [place] [address] PCP - General Family Medicine 10/19/18 Matthew Woods MD [address] [place] [address] Pain Medicine 09/21/24 documented as of this encounter
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
--- OUTSIDE RECORDS SUMMARY | 2024-12-12 16:43 | XMS_ITS | Encounter Summary ---
Author Organization [employer] Address [address] 7t [place] [address] Care Team Providers Care Debate Director Name Role Phone Sudha Richardson MD Primary Care Provider +1- [phone] Matthew Woods MD Unavailable Reason for Visit * Reason Onset Date Comments triage 02/04/2023 Encounter Details Date Type Department Care Team (Late st Contact Info) Description 02/04/2023 Telephone [facility] [address] [place], [place] [phone] Sudha Richardson MD 230 [place], [place] [phone] triage Social History Tobacco Use Types Packs/Day [...] Dr. Richardson. Pt is advised to come [facility] for care for nausea and vomiting and [...] Description 02/14/2025 1:30 PM EDT Clinical Support [facility] DIABETES/NUTRITION [address] [place] [phone] [place], [place] [phone] documented as of this encounter Visit Diagnoses Not on filedocumented in this encounter Additional Health Concerns Assessment Noted Time PHQ-9 Depression Total Score: 0 12/26/19 23 2:59 PM EST documented as of this encounter Care Teams Debate Director Relationship Specialty Start Date End Date Sudha Richardson MD [address] [place] [phone] PCP - General Family Medicine 10/19/18 Matthew Woods MD [address] [place] [address] [place] [phone] Pain Medicine 09/21/24 documented as of this encounter
--- OUTSIDE RECORDS SUMMARY | 2024-12-12 16:43 | XMS_ITS | Encounter Summary ---
Author Organization [employer] Address [address] [facility] [address] 7t [place] [address] Care Team Providers Care Cart Attendant Name Role Phone Sudha Richardson MD Primary Care Provider +1- [phone] Matthew Woods MD Unavailable Encounter Details Date Type Department Care Team (Late st Contact Info) Description 02/09/2023 Orders Only [facility] MEDICINE 230 [place], [place] [phone] Sudha Richardson MD 230 [place], [place] [phone] Social History Tobacco Use Types Packs/Day Years [...] Clinical Support [facility] DIABETES/NUTRITION 230 [place] [address] Roberta Mckeon, RD 230 [place] [address] documented as of this encounter Visit Diagnoses Not on filedocumented in this encounter Additional Health Concerns Assessment Noted Time PHQ-9 Depression Total Score: 0 12/26/19 23 2:59 PM EST documented as of this encounter Care Teams Cart Attendant Relationship Specialty Start Date End Date Sudha Richardson MD 230 [place] [address] PCP - General Family Medicine 10/19/18 Matthew Woods MD [address] [place] [address] Drive [address] [place] [address] Pain Medicine 09/21/24 documented as of this encounter
--- OUTSIDE RECORDS SUMMARY | 2024-12-12 16:43 | XMS_ITS | Encounter Summary ---
Author Organization [employer] Address [address] [facility] [address] [address] 7t [place] [address] Care Team Providers Care Company Laundry Worker Name Role Phone Sudha Richardson MD Primary Care Provider +1- [phone] Matthew Woods MD Unavailable Encounter Details Date Type Department Care Team (Late st Contact Info) Description 12/06/2024 Telephone [facility] MEDICINE 230 [place], [place] [phone] Sudha Richardson MD 230 [place], [place] [phone] Social History Tobacco Use Types Packs/Day Years [...] Description 02/14/2025 1:30 PM EDT Clinical Support [facility] DIABETES/NUTRITION 230 [place] [address] 230 [place] [address] documented as of this encounter Visit Diagnoses Not on filedocumented in this encounter Additional Health Concerns Assessment Noted Time PHQ-9 Depression Total Score: 24 024 9:39 AM EDT documented as of this encounter Care Teams Company Laundry Worker Relationship Specialty Start Date End Date Sudha Richardson MD 230 [place] [address] PCP - General Family Medicine 10/19/18 Matthew Woods MD [address] [place] [address] Pain Medicine 09/21/24 documented as of this encounter
--- OUTSIDE RECORDS SUMMARY | 2024-12-12 16:43 | XMS_ITS | Encounter Summary ---
Author Organization [employer] Address [address] 7[address] [place] [address] Care Team Providers Care Senior Safety Support Manager Name Role Phone Sudha Richardson MD Primary Care Provider +1- [phone] Matthew Woods MD Unavailable Encounter Details Date Type Department Care Team (Late st Contact Info) Description 04/22/2023 Orders Only [facility] MEDICINE 230 [place], [place] [phone] Sudha Richardson MD 230 [place], [place] [phone] Gender identity disorder of adulthood (Primary Dx) [...] Description 02/14/2025 1:30 PM EDT Clinical Support [facility] DIABETES/NUTRITION 230 [place] [address] Roberta Mckeon, CHARLA 230 [place] [address] Scheduled Orders Name Type Priority Associated Diagnoses [...] as of this encounter Care Teams Senior Safety Support Manager Relationship Specialty Start Date End Date Sudha Richardson MD 230 [place] [address] PCP - General Family Medicine 10/19/18 Matthew Woods MD [address] [place] [address] Pain Medicine 09/21/24 documented as of this encounter
--- OUTSIDE RECORDS SUMMARY | 2024-12-12 16:43 | XMS_ITS | Encounter Summary ---
Author Organization [employer] Address [address] [facility] [address] 7[address] [place] [address] Care Team Providers Care Pastry Decorator Name Role Phone Sudha Richardson MD Primary Care Provider +1- [phone] Matthew Woods MD Unavailable Reason for Visit * Reason Onset Date Comments Medication Question 11/25/2024 Encounter Details Date Type Department Care Team (Late st Contact Info) Description 11/25/2024 Telephone [facility] MEDICINE 230 [place], [place] [phone] Sudha Richardson MD 230 [place], [place] [phone] Medication Question Social History Tobacco Use Types [...] encounter Miscellaneous Notes * Telephone Encounter - Jannie Corea RN - 11/25/2024 2:46 PM EST TC placed to pt and LVM to call back the office in regards to Melatonin prescription * Telephone Encounter - Renuka Johnson - 11/25/2024 1:44 PM EST Patient said she picked up her melatonin from pharmacy, a medication that she always gets. However today she was charged $8.33 when she asked why they told her it was because this is an over the counter medication. Patient wants to know if there is an alt medication she can get that she doesn't have to pay at all. documented in this encounter Plan of Treatment Upcoming Encounters Date Type Department Care Team (Late st Contact Info) Description 02/14/2025 1:30 PM EDT Clinical Support [facility] DIABETES/NUTRITION 230 [place] [address] 230 [place] [address] documented as of this encounter Visit Diagnoses Not on filedocumented in this encounter Additional Health Concerns Assessment Noted Time PHQ-9 Depression Total Score: 24 024 9:39 AM EDT documented as of this encounter Care Teams Pastry Decorator Relationship Specialty Start Date End Date Sudha Richardson MD [address] [place] [address] [place] [address] PCP - General Family Medicine 10/19/18 Matthew Woods MD [address] [place] [address] Drive [address] [place] [address] Pain Medicine 09/21/24 documented as of this encounter
--- OUTSIDE RECORDS SUMMARY | 2024-12-12 16:43 | XMS_ITS | Encounter Summary ---
Author Organization [employer] Address [address] [facility] [address] 7t [place] [address] Care Team Providers Care Split Leather Mosser Name Role Phone Sudha Richardson MD Primary Care Provider +1- [phone] Matthew Woods MD Unavailable Encounter Details Date Type Department Care Team (Latest Contact Info) Description 12/06/2024 1:30 PM EST Clinical Support [facility] DIABETES/NUTRITION 230 [place], [place] [phone] Roberta Mckeon RD 230 [place] [address] Weight disorder (Primary Dx) Social History Tobacco [...] Weight 85.4 kg (188 lb 3.2 oz) 12/08/2024 1:19 P M EST Height 170.2 cm (5' 7 ) 12/08/2024 1:19 PM EST Body Mass Index 29.48 12/08/2024 1:19 PM EST documented in this encounter Progress Notes * Roberta Mckeon, RD - 12/06/2024 1:30 PM EST In Person Visit Medical Diagnosis: R63.8 Weight disorder Anthropometrics: Ht:5' 7 (1.702 m), Wt:188 lb 3.2 oz (85.4 kg), BMI: Body mass index is 29.48 kg/m??. Assessment: Patient (Pt) accepted nutrition education assessment appointment with RD. RD took Pt's weight. Weight is showing a decrease by 0.4 pounds since last appointment. Pt expressed that she just ate and the weight would be reading much less if she didn't eat. RD expressed that the body would be a little less, but not as much as Pt thinks is would be. RD took 24 hour recall/ typical daily intake from Pt. Intake revealed Pt is skipping at least a meal per day which is breakfast. Pt is watching her portion controls with a focus on protein and fresh vegetables/ salads. RD is ok with this which is following Pt's Tailored made meal plan. Pt is getting better in following her meal plan. She still needs some tweaking here with it. She is doing much better with it, though now. Pt still needs to focus on having a breakfast. This is in the works per Pt. Pt also talked about talking with PCP on weight medications that she maybe able to have/ get. RD encouraged the conversation with PCP to see if this is a way that also can be used. Pt told RD that she is working in getting an appointment with PCP. Pt expressed that PCP must not been in lately... ? Vacation? RD didn't answer here. All in all, Pt does do better when followed by RD. RD scheduled a follow up appointment in the lastweek of January 2025. Note: Pt is taking hormonal medications here per her need to be by PCP. Food Allergies: NKFA Exercise: Going to physical therapy, walking and counting steps (about 20) then rest due to pain in back/ nerves. Food Intolerance: None mentioned Food Preferences: Sugar, coffee, lemon, cinnamon, chicken, tuna, rice, beans, mashed potatoes, grilled cheese, soups-home made, Caesar salads, chicken breast, lettuce, tomatoes, pineda, chicken wings, mayonnaise, Dortios, water Food Dislikes: Didn't say Frequency of Eating Out/ Restaurant: Not a norm Who Cooks?: Patient How much caffeine?: coffee 3-4+ cups /day How much sugary beverages?: Coffee, 3+ cups per day made with sugar: 1+ tablespoons per cup Diet History: Breakfast: Skipped today Water: 1/2+ cup Snack: Water: 1/2+ cup Lunch: W. Wheat Bread: 2 slices Protein/Meat/ tuna: 3+ oz. Pineda: 2 slices Cheese: 1 slice Lettuce, tomato: 1/4 cup Dressin-2 tablespoons Water: 1-2 cups Snack: None Water: 1+ cups Dinner: Canned chicken: 3+ oz. Boiled egg: one Mayonnaise: 2+ tablespoons Lettuce, tomato: 2+ cups Doritos: 1/3 cup Water: 1-2 cups Snack: Chicharrones: 2-3+ oz. Water: 1-2 cups Nutrition Diagnosis: NC-3.3 Overweight related to excessive energy intake with limited physical activity as evidence by 24 hour recall/ typical daily intake and BMI >28. Nutrition Intervention: RD suggested for Pt to continue with her Tailored made meal plan which is keeping to portion controls also. Pt agreed to do this. Pt also agreed to talk with her PCP about any weight decreasing medicines that maybe a fit for her. Goals: Eat two carbohydrates for breakfast, lunch [...] Description 02/14/2025 1:30 PM EDT Clinical Support [facility] DIABETES/NUTRITION 230 [place] [address] 230 [place] [address] documented as of this encounter Visit Diagnoses Diagnosis Weight disorder- Primary documented in this encounter Additional Health Concerns Assessment Noted Time PHQ-9 Depression Total Score: 24 024 9:39 AM EDT documented as of this encounter Care Teams Split Leather Mosser Relationship Specialty Start Date End Date Sudha Richardson MD [address] [place] [address] PCP - General Family Medicine 10/19/18 Matthew Woods MD [address] [place] [address] Drive [address] [place] [address] Pain Medicine 09/21/24 documented as of this encounter
--- OUTSIDE RECORDS SUMMARY | 2024-12-12 16:43 | XMS_ITS | Encounter Summary ---
Author Organization [employer] Address 75 [facility] 7t [place] [address] Care Team Providers Care Medical Anthropology Director Name Role Phone Sudha Richardson MD Primary Care Provider +1- [phone] Matthew Woods MD Unavailable Encounter Details Date Type Department Care Team (Late Contact Info) Description 11/17/2022 Orders Only [facility] MEDICINE 230 [place] [address] Grabiel Sanders MD [address] [place] [address] Social History Tobacco Use Types Packs/Day Years [...] Upcoming Encounters Date Type Department Care Team ([facility] Contact Info) Description 02/14/2025 1:30 PM EDT Clinical Support [facility] DIABETES/NUTRITION [address] [place] [address] [place] [address] documented as of this encounter Procedures Procedure Name Priority Date/Time Associated Diagnosis Comments XR CHEST 2 VIEWS Routine 11/27/2022 3:16 PM EST documented in this encounter Results * XR Chest 2 Views (11/27/2022 3:16 PM EST) Anatomical Region Laterality Modality Chest Radiographic Kym ging 11/27/2022 3:16 PM EST Narrative 12/03/2022 11:47 AM EST ? [facility] ?[address] ?[place] [address] ?XRay Report ? Signed ? Patient: Faraz Faraz,Cherri ?MR ?? #: [id number] ? : 1985 ?Acct:[id number] ? Age/Sex: 37 / F ?ADM Date: 11/27/22 ? Loc: HO.XRAY ? Attending Dr: Grabiel Sanders MD ? Ordering Physician: Grabiel Sanders MD ?? Date of Service: 11/27/22 ?? Procedure(s): XR chest 2V ?? Accession Number(s): [id number] ? cc: Grabiel Sanders MD ? EXAMINATION: [...] 1144 ? DD/ 15 ? TD/TT: ? Hoop Riveting Machine Operator: LAVELLE ? Procedure Note Donotuseinterpreter, Image - 12/03/2022 [facility] [address] [place] [address] XRay Report Signed Patient: Cherri BoothMR #: [id number] : 1985Acct:[id number] Age/Sex: 37 / FADM Date: 11/27/22 Loc: HO.XRAY Attending Dr: Grabiel Sanders MD Ordering Physician: Grabiel Sanders MD Date of Service: 11/27/22 Procedure(s): XR chest 2V Accession Number(s): [id number] cc: Grabiel Sanders MD EXAMINATION: XR CHEST [...] in OV> 12/03/22 1144 DD/ 1516 TD/TT: Hoop Riveting Machine Operator: LAVELLE [facility] External Provider IMG XR PROCEDURES Edited Result - Final documented in this encounter Visit Diagnoses Not on filedocumented in this encounter Care Teams Medical Anthropology Director Relationship Specialty Start Date End Date Sudha Richardson MD 230 [place] [address] PCP - General Family Medicine 10/19/18 Matthew Woods MD [address] [place] [address] Pain Medicine 09/21/24 documented as of this encounter
--- OUTSIDE RECORDS SUMMARY | 2024-12-12 16:43 | XMS_ITS | Encounter Summary ---
Author Organization [employer] Address [address] [facility] [address] 7t [place] [address] Care Team Providers Care Portable Feed Mill Operator Name Role Phone Sudha Richardson MD Primary Care Provider +1- [phone] Matthew Woods MD Unavailable Reason for Visit * Reason Comments Med Refill Encounter Details Date Type Department Care Team (Late st Contact Info) Description 03/26/2024 Refill [facility] MEDICINE 230 [place], [place] [phone] Sudha Richardson MD 230 [place] [address] Urinary incontinence, unspecified type Social History Tobacco [...] Description 02/14/2025 1:30 PM EDT Clinical Support [facility] DIABETES/NUTRITION 230 [place] [address] 230 [place] [address] documented as of this encounter Visit Diagnoses Diagnosis Urinary incontinence, unspecified type documented in this encounter Additional Health Concerns Assessment Noted Time PHQ-9 Depression Total Score: 0 12/26/19 23 2:59 PM EST documented as of this encounter Care Teams Portable Feed Mill Operator Relationship Specialty Start Date End Date Sudha Richardson MD 230 [place] [address] PCP - General Family Medicine 10/19/18 Matthew Woods MD [address] [place] [address] Pain Medicine 09/21/24 documented as of this encounter
[2024-12-13 08:40] LABS: Syphilis Screen Nonreactive (Nonreactive)
[2024-12-13 08:49] LABS: HBS Num1 > 1000.00 mIU/mL (0-7.99); HBc Num1 0.12 S/CO (0.00-0.79); HIV AB/AG Nonreactive (Nonreactive); HIV Num 1 0.04 S/CO (0.00-0.99); Hepatitis A Antibody IgM 0.18 Index (0-0.79); Hepatitis B Core Antibody Nonreactive (Nonreactive); Hepatitis B Surface Antigen Negative (Negative); ~HepC Num1 0.37 S/CO (0.00-0.79); ~Hepatitis A Antibody IgM Nonreactive (Nonreactive); ~Hepatitis B Surface Antibody REACTIVE (Nonreactive); ~Hepatitis C Antibody Nonreactive (Nonreactive)
[2024-12-13 14:28] LABS: CT PCR NOT DETECTED (Not Detect.); NG PCR NOT DETECTED (Not Detect.)
== END 2024-12-12 14:29 | disposition home or self-care (01) ==
LOC: HO.HHCL 14:28
PROVIDERS: Visit Provider Internal Medicine
DX: Z11.3 Encounter for screening for infections with a predominantly sexual mode of transmission (principal); Y09 Assault by unspecified means
CPT/HCPCS: 36415; 86704; 86706; 86709; 86780; 86803; 87340; 87389; 87491; 87591

== ENCOUNTER 2024-12-15 13:41 | Outpatient (AMB) | payer OTHER, SELFPAY ==
--- NOTE | 2024-12-15 13:44 | MHC.OFFVIS ---
Vital Signs 12/15/24 13:45 Height 5 ft 7 in Weight 180 lb BMI 28.2 BP 132/82 Blood Pressure Location Lt brachial Position Sitting Pulse 80 Pulse Source Pulse Oximeter Pulse Oximetry (%) 98 Oxygen Delivery Method Room Air Intake Visit Reasons: Pill Count Allergies cockroach Allergy (Verified 12/15/24 13:48) Rash feathers Allergy (Verified 12/15/24 13:48) Rash HPI Comments Details: Arleth is here for the follow-up and pill count. She reports pain today is better than the last time at it is 02/25 today. She reports that opioid medications helps her pain. She denies side effects of the opioid medications. She denies constipation. She presented to us today receipts from official cannabis dispensary which was filed in the chart. Pill count today: She supposed to have 45 pills in her possession. She came with 48 pills in her possession. Therefore her pill count is correct. It demonstrates responsible attitude to were the opioid medications. She was in physical therapy to help her pelvic floor pain. She reported that right now her pelvic floor pain is better and her physical therapy at this time is not needed. She wants to return to physical therapy if her pain in pelvic floor we will become stronger. She also complains on pain in the knee. I offered her infrapatellar saphenous nerve block helped her pain in the knee. I will schedule her for this procedure without sedation. It is once needle stick in the knee area. Denies any fever, chills, unintentional weight loss, weakness, abdominal pain, sedation, nausea or dizziness. She picked up her medication on 11/01/2024. She will be prescribed new medication script on 12/01/2024. Next pill count appointment in 1 month. 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 Arthritis Surgical History History of breast implant removal Person who has undergone gender reassignment surgery Social History Alcohol intake: current Alcohol intake frequency: holidays/special occasions only Alcohol type: wine Patient Tobacco Use Status: Former Tobacco user Substance Use Type: Marijuana Current occupational status: disabled Current occupation: rt hand Review of Systems Const All systems reviewed & are unremarkable except as noted in HPI and below Physical Exam Vital Signs: Last Vital Signs Pulse 80 12/15/24 13:45 BP 132/82 12/15/24 13:45 Pulse Ox 98 12/15/24 13:45 Oxygen Delivery Method Room Air 12/15/24 13:45 BMI result Body Mass Index 28.2 General: Appears afebrile. Alert and oriented. Mood and affect appropriate. Follows and participates in conversation appropriately. Respiratory effort is unlabored. No cough. Able to transition from sit to stand unassisted. Uses cane with ambulation. Ambulates with bilaterally normal heel strike and toe off. General: Yes no CVA tenderness Back/Spine/Pelvis Back: no CVA tenderness Thoracic/Lumbar Spine: thoracic and lumbar spine normal to inspection Extrem Other: Tenderness on palpation in the projection of the right knee joint. Crepitus in the ROM right knee joint. General: Yes capillary refill normal, Yes no clubbing, cyanosis or edema and Yes no calf tenderness Psych Appearance: grossly normal Speech and movement: Normal speech and movement present and Pressured speech present Affect: Sad affect present and Hostile affect present Attitude: cooperative Thought process: Normal thought process present and Circumstantial thought process present Thought content: Normal thought content present, suicidality (none) and no hallucinations Insight: Good insight present (Psych) Judgement: Good judgement present (Psych) Assessment & Plan Assessment & Plan (1) Chronic pain syndrome: Code(s): G89.4 - Chronic pain syndrome Category: Medical (2) Chronic, continuous use of opioids: Code(s): F11.90 - Opioid use, unspecified, uncomplicated Category: Medical (3) Bilateral primary osteoarthritis of knee: Code(s): M17.0 - Bilateral primary osteoarthritis of knee Category: Medical (4) Spondylosis of lumbar region without myelopathy or radiculopathy: Code(s): M47.816 - Spondylosis without myelopathy or radiculopathy, lumbar region Category: Medical (5) Polyarthralgia: Code(s): M25.50 - Pain in unspecified joint Category: Medical (6) Bilateral knee pain: Code(s): M25.561 - Pain in right knee; M25.562 - Pain in left knee Category: Medical (7) Osteoarthritis of right knee: Code(s): M17.11 - Unilateral primary osteoarthritis, right knee Category: Medical Plan Mass pat is reviewed and without concerns. She demonstrates responsible attitude to opioid medications. She will refill her medication today on 12/27/2024. Her next pill count and follow-up appoint is scheduled in 1 month. She completed physical therapy for pelvic floor. She reports improvement. Reports significant discomfort in the right knee. She wants injections in the right knee. I offered her and she agreed to go for infrapatellar saphenous nerve block on the right. She presented today leads from the official cannabis dispensary which are filed in the chart. Medications: Refilled oxycodone-acetaminophen 5-325 mg (Percocet) 1 tab PO TID 30 days PRN 90 tabs 0RF severe pain (scale score 7-10) G89.4 - Chronic pain syndrome, M43.06 - Spondylolysis, lumbar region, M46.1 - Sacroiliitis, not elsewhere classified Coding Level of Care Code Est Pt Level 3 (06962) Diagnoses Chronic pain syndrome G89.4 Chronic, continuous use of opioids F11.90 Bilateral primary osteoarthritis of knee M17.0 Spondylosis of lumbar region without myelopathy or radiculopathy M47.816 Polyarthralgia M25.50 Bilateral knee pain M25.561; M25.562 Osteoarthritis of right knee M17.11
[2024-12-15 13:45] VITALS: BP 132/82; PULSE 80; O2SAT 98; BMI 28.2
--- OUTSIDE RECORDS SUMMARY | 2024-12-15 16:27 | XMS_ITS | Encounter Summary ---
Author Organization [employer] Address [address] [address] [address] 7t [place] [address] Care Team Providers Care Rf Microwave Engineer Name Role Phone Sudha Richardson MD Primary Care Provider +1- [phone] Matthew Woods MD Unavailable Reason for Visit * Reason Onset Date Comments Error 01/05/2024 Encounter Details Date Type Department Care Team ([facility] st Contact Info) Description 01/05/2024 Telephone [facility] MEDICINE 230 [place], [place] [phone] Sudha Richardson MD 230 [place], [place] [phone] Error Social History Tobacco Use Types Packs/Day [...] Clinical Support [facility] DIABETES/NUTRITION 230 [place] [address] 230 [place] [address] documented as of this encounter Visit Diagnoses Not on filedocumented in this encounter Additional Health Concerns Assessment Noted Time PHQ-9 Depression Total Score: 0 12/26/19 23 2:59 PM EST documented as of this encounter Care Teams Rf Microwave Engineer Relationship Specialty Start Date End Date Sudha Richardson MD 230 [place] [address] PCP - General Family Medicine 10/19/18 Matthew Woods MD [address] [place] [address] Pain Medicine 09/21/24 documented as of this encounter
--- OUTSIDE RECORDS SUMMARY | 2024-12-15 16:27 | XMS_ITS | Encounter Summary ---
Author Organization [employer] Address [address] [facility] [address] 7t [place] [address] Care Team Providers Care Design Agent Name Role Phone Sudha Richardson MD Primary Care Provider +1- [phone] Matthew Woods MD Unavailable Encounter Details Date Type Department Care Team (Latest Contact Info) Description 12/06/2024 1:30 PM EST Clinical Support [facility] DIABETES/NUTRITION 230 [place], [place] [phone] Roberta Mckeon RD 230 [place] [address] Weight disorder (Primary Dx) Social History Tobacco [...] Description 02/14/2025 1:30 PM EDT Clinical Support [facility] DIABETES/NUTRITION 230 [place] [address] [place] [address] documented as of this encounter Visit Diagnoses Diagnosis Weight disorder- Primary documented in this encounter Additional Health Concerns Assessment Noted Time PHQ-9 Depression Total Score: 24 024 9:39 AM EDT documented as of this encounter Care Teams Design Agent Relationship Specialty Start Date End Date Sudha Richardson MD [address] [place] [address] PCP - General Family Medicine 10/19/18 Matthew Woods MD [address] [place] [address] Drive [address] [place] [address] Pain Medicine 09/21/24 documented as of this encounter
--- OUTSIDE RECORDS SUMMARY | 2024-12-15 16:27 | XMS_ITS | Encounter Summary ---
Author Organization [employer] Address [address] [place] [address] Care Team Providers Care Project Management Name Role Phone Sudha Richardson MD Primary Care Provider +1- [phone] Matthew Woods MD Unavailable Reason for Visit * Reason Onset Date Comments Referral 12/11/2022 Encounter Details Date Type Department Care Team (Late st Contact Info) Description 12/11/2022 Telephone [facility] MEDICINE [address] [place], [place] [phone] Sudha Richardson MD [address] [place], [place] [phone] Referral Social History Tobacco Use Types Packs/Day [...] Tc from pt requesting a referral to [facility] PT for an 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 Needs a written referral with details. Pt claims that without it, no process can be down. [facility] PT number is [phone] press number 2. Pt states that this is through [facility] coordinator for pt. Please contact pt [phone] documented in this encounter Plan of Treatment Upcoming Encounters Date Type Department Care Team (Late st Contact Info) Description 02/14/2025 1:30 PM EDT Clinical Support [facility] DIABETES/NUTRITION [address] [place] [address] 230 [place] [address] documented as of this encounter Visit Diagnoses Not on filedocumented in this encounter Care Teams Project Management Relationship Specialty Start Date End Date Sudha Richardson MD [address] [place] [address] PCP - General Family Medicine 10/19/18 Matthew Woods MD [address] [place] [address] Pain Medicine 09/21/24 documented as of this encounter
--- OUTSIDE RECORDS SUMMARY | 2024-12-15 16:27 | XMS_ITS | Encounter Summary ---
Author Organization [employer] Address [address] 7[address] [place] [address] Care Team Providers Care Chain Forming Machine Operator Name Role Phone Sudha Richardson MD Primary Care Provider +1- [phone] Matthew Woods MD Unavailable Reason for Visit * Reason Comments Med Refill Encounter Details Date Type Department Care Team (Late st Contact Info) Description 01/23/2023 Refill [facility] MEDICINE [address] [place], [place] [phone] Sudha Richardson MD 230 [place] [address] Gender identity disorder of adulthood Social History [...] Description 02/14/2025 1:30 PM EDT Clinical Support [facility] DIABETES/NUTRITION [address] [place] [address] [place] [address] documented as of this encounter Visit Diagnoses Diagnosis 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
--- OUTSIDE RECORDS SUMMARY | 2024-12-15 16:27 | XMS_ITS | Encounter Summary ---
Author Organization [employer] Address [address] [facility] 7t [place] [address] Care Team Providers Care Film Developer Name Role Phone Sudha Richardson MD Primary Care Provider +1- [phone] Matthew Woods MD Unavailable Reason for Visit * Reason Comments Med Refill Encounter Details Date Type Department Care Team (Late st Contact Info) Description 03/26/2024 Refill [facility] MEDICINE [address] [place], [place] [phone] Sudha Richardson MD 230 [place] [address] Urinary incontinence, unspecified type Social History Tobacco [...] Description 02/14/2025 1:30 PM EDT Clinical Support [facility] DIABETES/NUTRITION 230 [place] [address] 230 [place] [address] documented as of this encounter Visit Diagnoses Diagnosis Urinary incontinence, unspecified type documented in this encounter Additional Health Concerns Assessment Noted Time PHQ-9 Depression Total Score: 0 12/26/19 23 2:59 PM EST documented as of this encounter Care Teams Film Developer Relationship Specialty Start Date End Date Sudha Richardson MD 230 [place] [address] PCP - General Family Medicine 10/19/18 Matthew Woods MD [address] [place] [address] Pain Medicine 09/21/24 documented as of this encounter
--- OUTSIDE RECORDS SUMMARY | 2024-12-15 16:27 | XMS_ITS | Encounter Summary ---
Author Organization [employer] Address [address] [facility] 7t [place] [address] Care Team Providers Care Customer Insight Analyst Name Role Phone Sudha Richardson MD Primary Care Provider +1- [phone] Matthew Woods MD Unavailable Encounter Details Date Type Department Care Team (Late Contact Info) Description 11/17/2022 Orders Only [facility] MEDICINE 230 [place] [address] Grabiel Sanders MD [address] [place] [address] Social History Tobacco Use Types Packs/Day Years [...] Upcoming Encounters Date Type Department Care Team ([facility] Contact Info) Description 02/14/2025 1:30 PM EDT Clinical Support [facility] DIABETES[facility]NUTRITION [address] [place] [address] [place] [address] documented as of this encounter Procedures Procedure Name Priority Date/Time Associated Diagnosis Comments XR CHEST 2 VIEWS Routine 11/27/2022 3:16 PM EST documented in this encounter Results * XR Chest 2 Views (11/27/2022 3:16 PM EST) Anatomical Region Laterality Modality Chest Radiographic Kym ging 11/27/2022 3:16 PM EST Narrative 12/03/2022 11:47 AM EST ? [facility] ?[address] ?[place] [address] ?XRay Report ? Signed ? Patient: Faraz Faraz,Cherri ?MR ?? #: [id number] ? : 1985 ?Acct:[id number] ? Age/Sex: 37 / F ?ADM Date: 11/27/22 ? Loc: HO.XRAY ? Attending Dr: Grabiel Sanders MD ? Ordering Physician: Grabiel Sanders MD ?? Date of Service: 11/27/22 ?? Procedure(s): XR chest 2V ?? Accession Number(s): [id number] ? cc: Grabiel Sanders MD ? EXAMINATION: [...] 1144 ? DD/ 15 ? TD/TT: ? Geophysical Prospecting Permit Agent: LAVELLE ? Procedure Note Donotuseinterpreter, Image - 12/03/2022 [facility] [address] [place] [address] XRay Report Signed Patient: Cherri BoothMR #: [id number] : 1985Acct:[id number] Age/Sex: 37 / FADM Date: 11/27/22 Loc: HO.XRAY Attending Dr: Grabiel Sanders MD Ordering Physician: Grabiel Sanders MD Date of Service: 11/27/22 Procedure(s): XR chest 2V Accession Number(s): [id number] cc: Grabiel Sanders MD EXAMINATION: XR CHEST [...] in OV> 12/03/22 1144 DD/ 1516 TD/TT: Geophysical Prospecting Permit Agent: LAVELLE [facility] External Provider IMG XR PROCEDURES Edited Result - Final documented in this encounter Visit Diagnoses Not on filedocumented in this encounter Care Teams Customer Insight Analyst Relationship Specialty Start Date End Date Sudha Richardson MD 230 [place] [address] PCP - General Family Medicine 10/19/18 Matthew Woods MD [address] [place] [address] Pain Medicine 09/21/24 documented as of this encounter
--- OUTSIDE RECORDS SUMMARY | 2024-12-15 16:27 | XMS_ITS | Encounter Summary ---
Author Organization [employer] Address [address] [place] [address] Care Team Providers Care Hiv Prevention Specialist Name Role Phone Sudha Richardson MD Primary Care Provider +1- [phone] Matthew Woods MD Unavailable Encounter Details Date [...] Description 02/14/2025 1:30 PM EDT Clinical Support [facility] DIABETES/NUTRITION 230 [place] [address] 230 [place] [address] documented as of this encounter Visit Diagnoses Not on filedocumented in this encounter Additional Health Concerns Assessment Noted Time PHQ-9 Depression Total Score: 24 024 9:39 AM EDT documented as of this encounter Care Teams Hiv Prevention Specialist Relationship Specialty Start Date End Date Sudha Richardson MD 230 [place] [address] PCP - General Family Medicine 10/19/18 Matthew Woods MD [address] [place] [address] Pain Medicine 09/21/24 documented as of this encounter
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
--- OUTSIDE RECORDS SUMMARY | 2024-12-15 16:27 | XMS_ITS | Encounter Summary ---
Author Organization [employer] Address [address] [place] [address] Care Team Providers Care Apparel Sales Associate Name Role Phone Sudha Richardson MD Primary Care Provider +1- [phone] Matthew Woods MD Unavailable Reason for Visit * Reason Onset Date Comments Medication Question 11/25/2024 Encounter Details Date Type Department Care Team (Late st Contact Info) Description 11/25/2024 Telephone [facility] MEDICINE 230 [place], [place] [phone] Sudha Richardson MD 230 [place], [place] [phone] Medication Question Social History Tobacco Use Types [...] Description 02/14/2025 1:30 PM EDT Clinical Support [facility] DIABETES/NUTRITION [address] [place] [address] [place] [address] documented as of this encounter Visit Diagnoses Not on filedocumented in this encounter Additional Health Concerns Assessment Noted Time PHQ-9 Depression Total Score: 24 024 9:39 AM EDT documented as of this encounter Care Teams Apparel Sales Associate Relationship Specialty Start Date End Date Sudha Richardson MD [address] [place] [address] [place] [address] PCP - General Family Medicine 10/19/18 Matthew Woods MD [address] [place] [address] Drive [address] [place] [address] Pain Medicine 09/21/24 documented as of this encounter
--- OUTSIDE RECORDS SUMMARY | 2024-12-15 16:27 | XMS_ITS | Encounter Summary ---
Author Organization [employer] Address [address] [place] [address] Care Team Providers Care Manager Medicare Marketing Name Role Phone Sudha Richardson MD Primary Care Provider +1- [phone] Matthew Woods MD Unavailable Encounter Details Date Type Department Care Team (Late st Contact Info) Description 11/06/2023 Telephone [facility] MEDICINE [address] [place], [place] [phone] Sudha Richardson MD [address] [place], [place] [phone] Social History Tobacco Use Types Packs/Day Years [...] Description 02/14/2025 1:30 PM EDT Clinical Support [facility] DIABETES/NUTRITION [address] [place] [address] Roberta Mckeon, RD 230 [place] [address] documented as of this encounter Visit Diagnoses Not on filedocumented in this encounter Additional Health Concerns Assessment Noted Time PHQ-9 Depression Total Score: 0 12/26/19 23 2:59 PM EST documented as of this encounter Care Teams Manager Medicare Marketing Relationship Specialty Start Date End Date Sudha Richardson MD [address] [place] [address] PCP - General Family Medicine 10/19/18 Matthew Woods MD [address] [place] [address] Pain Medicine 09/21/24 documented as of this encounter
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
--- OUTSIDE RECORDS SUMMARY | 2024-12-15 16:27 | XMS_ITS | Encounter Summary ---
Author Organization [employer] Address [address] [place] [address] [place] [address] Care Team Providers Care Blood Tester Fowl Name Role Phone Sudha Richardson MD Primary Care Provider +1- [phone] Matthew Woods MD Unavailable Encounter Details Date Type Department Care Team (Late st Contact Info) Description 02/09/2023 Orders Only [facility] [address] [place], [place] [phone] Sudha Richardson MD [address] [place], [place] [phone] Social History Tobacco Use Types Packs/Day Years [...] Description 02/14/2025 1:30 PM EDT Clinical Support [facility] [address] [place] [address] Roberta Mckeon, RD [address] [place] [address] documented as of this encounter Visit Diagnoses Not on filedocumented in this encounter Additional Health Concerns Assessment Noted Time PHQ-9 Depression Total Score: 0 12/26/19 23 2:59 PM EST documented as of this encounter Care Teams Blood Tester Fowl Relationship Specialty Start Date End Date Sudha Richardson MD [address] [place] [address] PCP - General Family Medicine 10/19/18 Matthew Woods MD [address] [place] [address] Drive [address] [place] [address] Pain Medicine 09/21/24 documented as of this encounter
--- OUTSIDE RECORDS SUMMARY | 2024-12-15 16:27 | XMS_ITS | Encounter Summary ---
Author Organization [employer] Address [address] [place] [address] Care Team Providers Care Em Physician Name Role Phone Sudha Richardson MD Primary Care Provider +1- [phone] Matthew Woods MD Unavailable Encounter Details Date Type Department Care Team (Late st Contact Info) Description 04/22/2023 Orders Only [facility] [address] [place], [place] [phone] Sudha Richardson MD [address] [place], [place] [phone] Gender identity disorder of adulthood (Primary Dx) [...] EDT Clinical Support [facility] [address] [place] [address] Roberta Mckeon, CHARLA [address] [place] [address] Scheduled Orders Name Type Priority Associated Diagnoses [...] documented as of this encounter Care Teams Em Physician Relationship Specialty Start Date End Date Sudha Richardson MD [address] [place] [address] PCP - General Family Medicine 10/19/18 Matthew Woods MD [address] [place] [address] Pain Medicine 09/21/24 documented as of this encounter
--- OUTSIDE RECORDS SUMMARY | 2024-12-15 16:27 | XMS_ITS | Encounter Summary ---
Author Organization [employer] Address [address] [place] [address] Care Team Providers Care Chemical Plant Worker Name Role Phone Sudha Richardson MD Primary Care Provider +1- [phone] Matthew Woods MD Unavailable Encounter Details Date Type Department Care Team (Late st Contact Info) Description 12/06/2024 Telephone [facility] MEDICINE [address] [place], [place] [phone] Sudha Richardson MD [address] [place], [place] [phone] Social History Tobacco Use Types Packs/Day Years [...] Description 02/14/2025 1:30 PM EDT Clinical Support [facility] DIABETES/NUTRITION [address] [place] [address] [place] [address] documented as of this encounter Visit Diagnoses Not on filedocumented in this encounter Additional Health Concerns Assessment Noted Time PHQ-9 Depression Total Score: 24 024 9:39 AM EDT documented as of this encounter Care Teams Chemical Plant Worker Relationship Specialty Start Date End Date Sudha Richardson MD [address] [place] [address] PCP - General Family Medicine 10/19/18 Matthew Woods MD [address] [place] [address] Pain Medicine 09/21/24 documented as of this encounter
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
--- OUTSIDE RECORDS SUMMARY | 2024-12-15 16:27 | XMS_ITS | Encounter Summary ---
Author Organization [employer] Address [address] [facility] [place] [address] Care Team Providers Care Innovations Paraprofessional Name Role Phone Debra, Sudha FROST Primary Care Provider +1- [phone] Matthew Woods MD Unavailable Reason for Visit * Reason Comments Med Refill Encounter Details Date Type Department Care Team (Late st Contact Info) Description 01/06/[address] [facility] MEDICINE [address] [place], [place] [phone] Atiya Alegria MD [address] [place] [address] Urinary incontinence, unspecified type Social History Tobacco [...] Description 02/14/2025 1:30 PM EDT Clinical Support [facility] DIABETES/NUTRITION [address] [place] [address] [place] [address] documented as of this encounter Visit Diagnoses Diagnosis Urinary incontinence, unspecified type documented in this encounter Additional Health Concerns Assessment Noted Time PHQ-9 Depression Total Score: 0 12/26/19 23 2:59 PM EST documented as of this encounter Care Teams Innovations Paraprofessional Relationship Specialty Start Date End Date Sudha Richardson MD [address] [place] [address] PCP - General Family Medicine 10/19/18 Matthew Woods MD [address] [place] [address] Pain Medicine 09/21/24 documented as of this encounter
--- OUTSIDE RECORDS SUMMARY | 2024-12-15 16:27 | XMS_ITS | Encounter Summary ---
Author Organization [employer] Address [address] 7[address] [place] [address] Care Team Providers Care Brim Shaper Name Role Phone Sudha Richardson MD Primary Care Provider +1- [phone] Matthew Woods MD Unavailable Encounter Details Date Type Department Care Team (Late st Contact Info) Description 08/31/2024 Orders Only [facility] MEDICINE [address] [place], [place] [phone] Sudha Richardson MD [address] [place], [place] [phone] Social History Tobacco Use Types Packs/Day Years [...] [facility]ITION [address] [place] [address] [place] [address] documented as of this encounter Visit Diagnoses Not on filedocumented in this encounter Additional Health Concerns Assessment Noted Time PHQ-9 Depression Total Score: 24 024 9:39 AM EDT documented as of this encounter Care Teams Brim Shaper Relationship Specialty Start Date End Date Sudha Richardson MD [address] [place] [address] PCP - General Family Medicine 10/19/18 Matthew Woods MD [address] [place] [address] Pain Medicine 09/21/24 documented as of this encounter
--- OUTSIDE RECORDS SUMMARY | 2024-12-15 16:27 | XMS_ITS | Encounter Summary ---
Author Organization [employer] Address [address] [facility] [address] [place] [address] Care Team Providers Care Clerk Carrier Name Role Phone Sudha Richardson MD Primary Care Provider +1- [phone] Matthew Woods MD Unavailable Encounter Details Date Type Department Care Team (Late st Contact Info) Description 05/07/2023 Orders Only [facility] MEDICINE [address] [place], [place] [phone] Sudha Richardson MD [address] [place], [place] [phone] Gender dysphoria in adult Social History Tobacco [...] Description 02/14/2025 1:30 PM EDT Clinical Support [facility] DIABETES/NUTRITION [address] [place] [address] Roberta Mckeon, CHARLA 230 [place] [address] documented as of this encounter Visit Diagnoses Diagnosis Gender dysphoria in adult documented in this encounter Additional Health Concerns Assessment Noted Time PHQ-9 Depression Total Score: 0 12/26/19 23 2:59 PM EST documented as of this encounter Care Teams Clerk Carrier Relationship Specialty Start Date End Date Sudha Richardson MD [address] [place] [address] PCP - General Family Medicine 10/19/18 Matthew Woods MD [address] [place] [address] Drive [address] [place] [address] Pain Medicine 09/21/24 documented as of this encounter
--- OUTSIDE RECORDS SUMMARY | 2024-12-15 16:27 | XMS_ITS | Encounter Summary ---
Author Organization [employer] Address [address] [place] [address] Care Team Providers Care Ob/Gyn Doctor Name Role Phone Sudha Richardson MD Primary Care Provider +1- [phone] Matthew Woods MD Unavailable Reason for Visit * Reason Onset Date Comments triage 02/04/2023 Encounter Details Date Type Department Care Team (Late st Contact Info) Description 02/04/2023 Telephone [facility] MEDICINE [address] [place], [place] [phone] Sudha Richardson MD 230 [place], [place] [phone] triage Social History Tobacco Use Types Packs/Day [...] Dr. Richardson. Pt is advised to come [facility] for care for nausea and vomiting [...] Description 02/14/2025 1:30 PM EDT Clinical Support [facility] DIABETES/NUTRITION 230 [place] [address] [place], [place] [phone] documented as of this encounter Visit Diagnoses Not on filedocumented in this encounter Additional Health Concerns Assessment Noted Time PHQ-9 Depression Total Score: 0 12/26/19 23 2:59 PM EST documented as of this encounter Care Teams Ob/Gyn Doctor Relationship Specialty Start Date End Date Sudha Richardson MD [address] [place] [address] PCP - General Family Medicine 10/19/18 Matthew Woods MD [address] [place] [address] [place] [address] Pain Medicine 09/21/24 documented as of this encounter
--- OUTSIDE RECORDS SUMMARY | 2024-12-15 16:27 | XMS_ITS | Encounter Summary ---
Author Organization [employer] Address [address] [facility] [address] [place] [address] Care Team Providers Care Drum Puller Name Role Phone Sudha Richardson MD Primary Care Provider +1- [phone] Matthew Woods MD Unavailable Reason for Visit * Reason Onset Date Comments Durable Medical Equipment 05/20/2023 Encounter Details Date Type Department Care Team (Late st Contact Info) Description 05/20/2023 Telephone [facility] MEDICINE 230 [place], [place] [phone] Sudha Richardson MD 230 [place], [place] [phone] Durable Medical Equipment Social History Tobacco Use [...] Description 02/14/2025 1:30 PM EDT Clinical Support [facility] DIABETES/NUTRITION 230 [place] [address] Roberta Mckeon, CHARLA 230 [place] [address] documented as of this encounter Visit Diagnoses Not on filedocumented in this encounter Additional Health Concerns Assessment Noted Time PHQ-9 Depression Total Score: 0 12/26/19 23 2:59 PM EST documented as of this encounter Care Teams Drum Puller Relationship Specialty Start Date End Date Sudha Richardson MD [address] [place] [address] PCP - General Family Medicine 10/19/18 Matthew Woods MD [address] [place] [address] Pain Medicine 09/21/24 documented as of this encounter
== END 2024-12-15 14:08 | disposition home or self-care (01) ==
PROVIDERS: PCP Family Medicine; Visit Provider Anesthesiology
DX: G89.4 Chronic pain syndrome (principal); M17.0 Bilateral primary osteoarthritis of knee; M47.816 Spondylosis without myelopathy or radiculopathy, lumbar region; Z79.891 Long term (current) use of opiate analgesic; M25.50 Pain in unspecified joint; M25.561 Pain in right knee; M25.562 Pain in left knee; M17.11 Unilateral primary osteoarthritis, right knee
CPT/HCPCS: 99213

== ENCOUNTER → 2024-12-15 13:41 | Outpatient (BNVA) | payer OTHER, SELFPAY | PROVIDERS: PCP Family Medicine; Visit Provider Anesthesiology | DX: Z51.81 Encounter for therapeutic drug level monitoring (principal); F11.20 Opioid dependence, uncomplicated; M17.0 Bilateral primary osteoarthritis of knee; M47.816 Spondylosis without myelopathy or radiculopathy, lumbar region; M25.50 Pain in unspecified joint; M25.561 Pain in right knee; M25.562 Pain in left knee | CPT/HCPCS: 99212 ==

== ENCOUNTER 2024-12-17 03:11 | Emergency (ER) | payer OTHER, SELFPAY ==
--- NOTE | ~2024-12-17 | CT_ITS ---
CLINICAL HISTORY: R labial periuretheral abscess? CT abdomen and pelvis with IV contrast Comparison: CT/OT/[place]/SR - ABD PELV W IV CON ONLY [id number] - 04/07/18 03:04 EDT Findings: Lung bases show no active disease. No dependent layering pleural effusions. The heart is not enlarged. Coronary artery calcifications: None. Partially imaged bilateral breast implants Liver normal size and contour. No focal hepatic lesions. Patent hepatic and portal veins. Physiologic distention of the gallbladder with no radiopaque gallstones. Homogeneous enhancement of the pancreas. No splenomegaly. Normal adrenal glands. Symmetrical renal excretion with no segmental or diffuse renal parenchymal disease or evidence of obstructive uropathy/hydroureteronephrosis. Mild caliectasis midpole both kidneys Bowel demonstrates a nonobstructive pattern. No free air. Increased stool burden. Normal appendix and terminal ileum. Diverticulosis coli without CT evidence of acute diverticulitis. Normal distention of the urinary bladder. No intraperitoneal, retroperitoneal, pelvic or inguinal masses lymphadenopathy or abnormal fluid collections. Right labial periurethral inflammatory changes with areas of hyperemia but no discrete drainable fluid collection is demonstrated. Ischiorectal and ischioanal fossa are normal. No perirectal abscess. Post hysterectomy. Chronic L5 pars defect with central disc extrusion causing mild central and foraminal stenosis L5-S1 Impression: 1. Suspect phlegmon rather than a discrete abscess right labial periurethral region inflammatory in nature equivocal urethral diverticulum. MRI with contrast is the imaging modality of choice. 2. Ancillary findings as described This document has been electronically signed by: Abhijeet Lazaro MD on 12/17/2024 10:14:04
[2024-12-17 03:14] VITALS: BP 117/77; PULSE 106; RESP 17; TEMP 37; O2SAT 100; BMI 29.7
--- NOTE | 2024-12-17 05:44 | PC.NURSE ---
Pt ringing call pascual screaming I need some fucking help, no one is doing shit while this RN was with another pt in another room. This RN enters room and speak with the pt. Pt states The TV doesnt turn on. Pt advised TV not workng. Pt states so why did they bring me in here Pt comes out to doorway of room screaming if youre not going to do shit then dont hold me here Pt advised she is waiting to see a provider and is not being held. This RN attempted to redirect pt. Pt states get out of my room I want my privacy Nursing CC involved in entire encounter Plan of care ongoing.
--- NOTE | 2024-12-17 05:45 | PC.NURSE ---
At [facility] 0430 hours, pt was yelling from her room asking for a nurse. I entered the room and introduced myselft and asked what I can do. Pt expressed frustration with the cleanliness of the room as well as the room next to her that had not yet been cleaned following the departure of the previous pt. I listened to the pt's concerns and offered to address the items I could. I cleaned the pts room, cleaned the room next to her, and offered some warm blankets. Pt also verbalized being upset/frustrated with the primary nurse and that the TV doesn't work. I apologized that the TV doesn't work and reassured her that the provider would be in to evaluate her as soon as he is able. I also informed her that I would relay her concerns and frustration to her assigned nurse. Pt reported that she did not want that nurse and asked for another one to be assigned to her. Primary nurse made aware.
[2024-12-17] MEDS: Acetaminophen 325 MG TABLET 650 MG PO (06:00)
[2024-12-17 06:01] VITALS: BP 120/78; PULSE 80; RESP 16; O2SAT 98
[2024-12-17] MEDS: Morphine Sulfate 4 MG/ML CARTRIDGE IM (06:59)
--- NOTE | 2024-12-17 07:56 | ED_ITS ---
HPI - Female Genitourinary General Chief complaint: Skin/Abscess/Foreign Body Stated complaint: Personal she prefers not to say Time Seen by Provider: 12/17/24 06:27 Source: patient Mode of arrival: ambulatory Limitations: no limitations History of Present Illness ED Provider: Dee Tovar NP HPI Narrative: Patient is a 39-year-old transgender male to female s/p gender re-assignment surgery in 2018 without any complications who presents emergency department for evaluation. She reports over the past 3 days she has been developing what she believes is an abscess to the right upper side of her vagina with the associated pain described as a significant pressure and swelling. She states she is not certain whether this is an ingrown hair, in the past she has had an ingrown hair that required incision and drainage. She denies shaving the area. About 3 weeks ago she did have a laser hair removal treatment she is not certain if this is related. There is becoming increasingly painful. Denies fevers or chills. Denies concern for STD transmitted infections. Denies dysuria, hematuria, urinary frequency/urgency/hesitancy Related Data Home Medications ?Medication ?Instructions ?Recorded ?Confirmed melatonin 5 mg capsule 5 mg PO .hs 02/13/21 09/21/24 oxybutynin chloride 10 mg 10 mg PO DAILY 03/13/21 09/21/24 tablet,extended release 24 hr duloxetine 30 mg capsule,delayed 30 mg PO DAILY 12/11/21 09/21/24 release aripiprazole 2 mg tablet 2 mg PO DAILY 07/15/22 09/21/24 duloxetine 60 mg capsule,delayed 60 mg PO DAILY 07/15/22 09/21/24 release multivitamin 1 tab PO DAILY 07/15/22 09/21/24 aripiprazole 5 mg tablet 5 mg PO DAILY 09/09/22 09/21/24 doxycycline monohydrate 100 mg 100 mg PO BID 09/09/22 09/21/24 capsule melatonin 5 mg tablet 5 mg PO BEDTIME 10/10/22 09/21/24 testosterone 1.62 % (20.25 mg/1.25 0 mg topical 01/12/23 09/21/24 gram) transdermal gel packet cetirizine 10 mg tablet 10 mg PO DAILY 02/09/23 09/21/24 testosterone 0 mg topical 02/09/23 09/21/24 cariprazine 1.5 mg capsule 1.5 mg PO DAILY 04/13/23 09/21/24 (Vraylar) cariprazine 3 mg capsule (Vraylar) 3 mg PO DAILY 08/03/23 09/21/24 clindamycin phosphate 1 % topical 1 appl topical BID 10/01/23 09/21/24 gel cholecalciferol (vitamin D3) 25 25 mcg PO DAILY 11/17/24 mcg (1,000 unit) tablet estradiol valerate 20 mg/mL mg IM 11/17/24 intramuscular oil Previous Rx's ?Medication ?Instructions ?Recorded ibuprofen 600 mg tablet 600 mg PO Q6H PRN pain #20 tabs 04/17/21 diclofenac sodium 1 % topical gel 2 g topical TID PRN Pain, Moderate 06/08/23 (Voltaren Arthritis Pain) #100 grams polyethylene glycol 3350 17 gram 17 g PO DAILY PRN for constipation 10/30/23 oral powder packet #30 ea lidocaine 5 % topical patch 1 patch topical DAILY #30 ea 02/18/24 naloxone 4 mg/actuation nasal 4 mg intranasal Q2M PRN opioid 05/23/24 spray (Narcan) overdose #2 ea gabapentin 100 mg capsule 300 mg (3 x 100 mg) PO BID for 10/31/24 pain 30 days #180 caps oxycodone-acetaminophen 5 mg-325 1 tab PO TID PRN severe pain 12/15/24 mg tablet (Percocet) (scale score 7-10) 30 days #90 tabs Allergies Allergy/AdvReac Type Severity Reaction Status Date / Time cockroach Allergy Rash Verified 12/17/24 03:18 feathers Allergy Rash Verified 12/17/24 03:18 Review of Systems 2 Review of Systems: Yes all other systems are reviewed and are negative PMFSH Past Medical History Attestation statement: The following information was validated with the patient. 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 Arthritis Surgical History History of breast implant removal Person who has undergone gender reassignment surgery Social History Social History Alcohol intake: current Alcohol intake frequency: holidays/special occasions only Alcohol type: wine Patient Tobacco Use Status: Former Tobacco user Substance Use Type: Marijuana Current occupational status: disabled Current occupation: rt hand Physical Exam 2 Vital Signs: Vital Signs: Last Vital Signs Temp 98.5 F 12/17/24 14:22 Pulse 87 12/17/24 14:22 Resp 18 12/17/24 14:22 BP 143/90 H 12/17/24 14:22 Pulse Ox 99 12/17/24 14:22 O2 Del Method Room Air 12/17/24 14:22 BMI result Body Mass Index 29.7 Appearance: Alert.?Oriented to person, place and time. No acute distress.?Normal affect. Eyes: Pupils equal, round and reactive to light.? ENT: Pharynx normal.?? Neck: Normal inspection.? Neck supple.?? CVS: Heart sounds normal. Normal heart rate and rhythm.? Pulses normal.?? Respiratory: No respiratory distress.? Lung sounds clear to auscultation bilaterally?? Abdomen: Soft and non-tender. Normoactive bowel sounds. Urogenital: There is a palpable mass with fluctuance to the right upper?vulva with swelling to the vaginal introitus and susie- urethral tissue Skin: Skin warm and dry.? Normal skin color.? Normal skin turgor.?? Extremities: No lower extremity edema.? No calf ttp? Neuro: Moves all extremities spontaneously. Sensation intact bilaterally. CN II- XII intact. No focal neuro deficits. Ambulates with normal steady gait. Course Reevaluation(s) Reevaluation #1: I consulted with Urology, Dr. Hutchinson due to radiologist impression for inflammation to the periurethral region equivocal for urethral diverticulum, he felt this to be quite unlikely given the transgender status of this patient, on interpretation of CT imaging, there is extensive soft tissue involvement of the perineum, anterior rectal through the lisa clitoral area. Dr. Hutchinson advises inpatient admission to medicine service for IV antibiotics, potentially follow- up MRI imaging after a couple of days to reassess. Patient is agreeable to IV antibiotics and admission. Will speak with hospitalist team Time: 11:50 Reevaluation #2: I spoke with medical team here at the hospital, they felt this was more of a surgical admission. I spoke with [facility] surgery Dr. Bowman felt that she would better be suited to be admitted to facility where she would have surgical services available to her, ideally [facility] where she had her prior reconstruction surgery. Did not feel that she would be best suited for admission here. I consulted with [facility], patient was accepted for ED to ED transfer under Dr. Logan. Patient is agreeable to ambulance transfer Time: 14:48 Medications Administered Discontinued Medications Generic Name Dose Route Start Last Admin Trade Name Freq PRN Reason Stop Dose Admin Acetaminophen 650 mg 12/17/24 05:55 12/17/24 06:00 Acetaminophen 325 Mg Tablet PO 12/17/24 05:56 650 mg ONCE ONE Administration Ceftriaxone Sodium 2 gm 12/17/24 08:05 12/17/24 10:25 Ceftriaxone Sodium 2 Gm Vial IVPUSH 12/17/24 08:06 2 gm ONCE ONE Administration Sodium Chloride 1,000 mls @ 999 mls/hr 12/17/24 08:00 12/17/24 10:26 Ns IV 12/17/24 09:00 Infused .Q1H1M TONYA Infusion Iohexol 85 ml 12/17/24 09:10 12/17/24 09:10 Iohexol 350 Mg/Ml 100 Ml Infus..Btl IV 12/17/24 09:11 85 ml ONCE ONE Administration Lidocaine HCl 5 ml 12/17/24 06:41 12/17/24 08:00 Lidocaine Hcl 1 % Mpf 5 Ml Vial SUBCUT 12/17/24 06:42 5 ml ONCE ONE Administration Morphine Sulfate 4 mg 12/17/24 06:41 12/17/24 06:59 Morphine Sulfate 4 Mg/Ml Cartridge IM 12/17/24 06:42 4 mg ONCE ONE Administration Protocol Medical Decision Making Medical Decision Making MDM Narrative: Patient is a 39-year-old transgender male to female s/p gender re-assignment surgery what sounds to be a single stage procedure at [facility] in 2018 without any complications, history of PTSD, depression, chronic pain syndrome, arthritis, spondylosis who presents for evaluation of a vulvar abscess as per HPI. Onset 3 days ago. There is a palpable area of central fluctuance for which we discussed indications for incision and drainage she was amenable to procedure as per procedural portion of this note. After 0.5 cm incision made to the external vulva, scant amount of bloody drainage was evacuated, upon applying pressure over the mons pubis, purulent foul-smelling drainage was expressed from the internal genitalia, unclear where this was directly draining from. Therefore obtaining CT of the abdomen and pelvis for further delineation in addition to serum labs, she arrived tachycardic initially thought to be secondary to pain, but she is afebrile, will obtain blood cultures and lactic acid, cover with Rocephin into received 1 L normal saline IV fluid. Differential Diagnosis Differential Diagnoses: The differential diagnosis associated with the presentation includes (Vulvar abscess, periurethral abscess, cutaneous abscess) Admission/Observation Consideration of admission/observation: Escalation of care including admission/observation considered (See narrative above) Consult Healthcare Provider Management of the patient was discussed with: Senior Controls Analyst ( see course narrative) Lab Data MDM Lab Attestation statement: I reviewed the patient's lab results. 12/17/24 08:11 12/17/24 08:11 Labs: Lab Results 12/17/24 12/17/24 Range/Units 08:11 08:46 WBC 12.1 H (4.8-10.8) X10*3/uL RBC 4.47 (4.20-5.50) X10*6/uL Hgb 14.2 (12.0-16.0) g/dl Hct 39.8 (37.0-47.0) % MCV 89.0 (80.0-98.0) fL MCH 31.8 (27.0-33.0) pg MCHC 35.7 H (31.0-35.0) g/dl RDW 11.6 (11.0-16.0) % Plt Count 283 (160-400) X10*3/uL MPV 8.6 L (9.4-12.3) fL Immature Gran % (Auto) 0.3 (0.0-0.4) % Neut % (Auto) 61.8 (45-73) % Lymph % (Auto) 27.3 (20-40) % Warren % (Auto) 9.9 (2-11) % Eos % (Auto) 0.5 (0-4) % Baso % (Auto) 0.2 (0-2) % Lymph # (Auto) 3.3 (1.2-4.9) X10*3/uL Warren # (Auto) 1.2 (0.1-1.2) X10*3/uL Eos # (Auto) 0.1 (0.0-0.4) X10*3/uL Baso # (Auto) 0.0 (0.0-0.2) X10*3/uL Abs Immat Gran (auto) 0.04 H (0.00-0.03) X10*3/uL Absolute Neuts (auto) 7.5 (2.0-8.3) x10*3/uL Absolute Nucleated RBC 0.000 (0.0-0.012) X10*3/uL Nucleated RBC % (auto) 0.0 (0.0-0.2) /100WBC Sodium 140 (135-145) mmol/L Potassium 4.3 (3.3-5.1) mmol/L Chloride 108 (96-108) mmol/L Carbon Dioxide 26 (22-29) mmol/L Anion Gap 10 L (12-20) BUN 13 (9-16) mg/dL Creatinine 0.66 (0.5-1.4) mg/dL Estim Creat Clear Calc 122.1 Estimated GFR > 60 Random Glucose 102 (60-115) mg/dL Lactic Acid 0.7 (0.5-2.0) mmol/L Calcium 9.1 (8.4-10.2) mg/dL Total Bilirubin 0.8 (0.0-1.0) mg/dL AST 42 H (5-31) U/L ALT 39 H (0-31) U/L Alkaline Phosphatase 94 (39-117) U/L Total Protein 7.7 (6.5-8.0) g/dL Albumin 4.3 (3.5-5.0) g/dL Beta HCG, Quant < 2 mIU/mL Radiology Impression Discussion of test interpretation with radiology: I have reviewed the radiologist's reading. Radiologist Impression: Impression: CT aBD/ pelvis w/ IV cont 1. Suspect phlegmon rather than a discrete abscess right labial periurethral region inflammatory in nature equivocal urethral diverticulum. MRI with contrast is the imaging modality of choice. 2. Ancillary findings as described External Record Review External record reviewed: Outpatient record Chronic Conditions Patient?s care impacted by: Other (See narrative above) Procedures Abscess I/D Site: other (vulvar) Side (if applicable): right Local Anesthetic: lidocaine 1% Amount of anesthesia used (mL): 4 Technique: incised with blade Irrigation: Yes Packing used?: none Critical Care Time Critical Care Time Critical Care Time: Yes Total Critical Care Time: 45 Attestation: I personally attest to this critical care time spent taking care of the patient exclusive of all other billable procedures was approximately 45 minutes including initial evaluation of patient, ordering tests, CT interpretation, medical consultation, documentation, re-evaluation. Discharge Plan Discharge Clinical Impression: Abscess, suprapubic Patient Disposition: [facility] Transfer Details: [facility] Prescriptions: No Action gabapentin 100 mg capsule 300 mg PO BID 30 Days Qty: 180 8RF ibuprofen 600 mg tablet 600 mg PO Q6H PRN (Reason: pain) Qty: 20 0RF lidocaine 5 % adhesive patch,medicated 1 patch topical DAILY Qty: 30 0RF Rx Instructions: leave on most painful area for up to 12 hrs melatonin 5 mg capsule 5 mg PO .hs oxybutynin chloride 10 mg tablet extended release 24hr 10 mg PO DAILY multivitamin Tablet 1 tab PO DAILY aripiprazole 2 mg tablet 2 mg PO DAILY duloxetine 60 mg capsule,delayed release(DR/EC) 60 mg PO DAILY melatonin 5 mg tablet 5 mg PO BEDTIME duloxetine 30 mg capsule,delayed release(DR/EC) 30 mg PO DAILY aripiprazole 5 mg tablet 5 mg PO DAILY doxycycline monohydrate 100 mg capsule 100 mg PO BID Vraylar 1.5 mg capsule 1.5 mg PO DAILY diclofenac sodium [Voltaren Arthritis Pain] 1 % gel 2 g topical TID PRN (Reason: Pain, Moderate) Qty: 100 3RF Rx Instructions: apply to single elbow, wrist or hand; for hand includes palm/fingers/back of hand Vraylar 3 mg capsule 3 mg PO DAILY clindamycin phosphate 1 % gel 1 appl topical BID polyethylene glycol 3350 17 gram powder in packet 17 g PO DAILY PRN (Reason: for constipation) Qty: 30 3RF naloxone [Narcan] 4 mg/actuation spray,non-aerosol 4 mg intranasal Q2M PRN (Reason: opioid overdose) Qty: 2 0RF Rx Instructions: spray 1 dose into ONE nostril; alternate nostrils w each dose until help arrives testosterone 1.62 % (20.25 mg/1.25 gram) gel in packet 0 mg topical cetirizine 10 mg tablet 10 mg PO DAILY testosterone 20.25 mg/1.25 gram (1.62 %) gel in metered-dose pump 0 mg topical cholecalciferol (vitamin D3) 25 mcg (1,000 unit) tablet 25 mcg PO DAILY estradiol valerate 20 mg/mL oil IM oxycodone-acetaminophen [Percocet] 5-325 mg tablet 1 tab PO TID PRN (Reason: severe pain (scale score 7-10)) 30 Days Qty: 90 0RF Discharge Date/Time: 12/17/24 14:53 Print Language: Niuean
[2024-12-17] MEDS: Lidocaine HCl 1 % MPF 5 ML VIAL SUBCUT (08:00)
[2024-12-17] MEDS: 0.9 % Sodium Chloride 1,000 ML 999 ML IV (08:16)
[2024-12-17 08:18] LABS: MANUAL DIFF FLAG NO
[2024-12-17 08:23] LABS: Basophils Percent Auto 0.2 % (0-2); Eosinophils Absolute Auto 0.1 X10*3/uL (0.0-0.4); Eosinophils Percent Auto 0.5 % (0-4); Hematocrit 39.8 % (37.0-47.0); Hemoglobin 14.2 g/dl (12.0-16.0); Imm Gran Abs Auto 0.04 X10*3/uL (0.00-0.03); Imm Gran Pct Auto 0.3 % (0.0-0.4); Lymphocytes Absolute Auto 3.3 X10*3/uL (1.2-4.9); Lymphocytes Percent Auto 27.3 % (20-40); Mean Corpuscular HGB Conc 35.7 g/dl (31.0-35.0); Mean Corpuscular Hemoglobin 31.8 pg (27.0-33.0); Mean Platelet Volume 8.6 fL (9.4-12.3); Monocytes Absolute Auto 1.2 X10*3/uL (0.1-1.2); Monocytes Percent Auto 9.9 % (2-11); Neutrophils Absolute Auto 7.5 x10*3/uL (2.0-8.3); Neutrophils Percent Auto 61.8 % (45-73); Platelet Count 283 X10*3/uL (160-400); Red Blood Count 4.47 X10*6/uL (4.20-5.50); Red Cell Distribution Width 11.6 % (11.0-16.0); White Blood Count 12.1 X10*3/uL (4.8-10.8)
[2024-12-17 08:52] LABS: Lactic Acid 0.7 mmol/L (0.5-2.0)
[2024-12-17 08:53] LABS: Alanine Aminotransferase 39 U/L (0-31); Albumin Level 4.3 g/dL (3.5-5.0); Alkaline Phosphatase 94 U/L (39-117); Anion Gap 10 (12-20); Aspartate Amino Transferase 42 U/L (5-31); Bilirubin Total 0.8 mg/dL (0.0-1.0); Blood Urea Nitrogen 13 mg/dL (9-16); Calcium 9.1 mg/dL (8.4-10.2); Carbon Dioxide 26 mmol/L (22-29); Chloride 108 mmol/L (96-108); Creatinine Clr Calc Pharmacy 122.1; Estimated Glomerular Filt Rate > 60; Glucose Random 102 mg/dL (60-115); Potassium 4.3 mmol/L (3.3-5.1); Sodium 140 mmol/L (135-145); Total Protein 7.7 g/dL (6.5-8.0)
[2024-12-17] MEDS: iohexoL 350 MG/ML 100 ML INFUS..BTL 85 ML IV (09:10)
[2024-12-17 09:28] LABS: HCG Quantitative < 2 mIU/mL
[2024-12-17] MEDS: cefTRIAXone sodium 2 GM VIAL IVPUSH (10:25)
[2024-12-17 10:47] VITALS: BP 106/72; PULSE 71; RESP 20; TEMP 36.7; O2SAT 95
--- NOTE | 2024-12-17 11:58 | P.CNUR_ITS ---
History of Present Illness Consult details Consult date: 12/17/24 Narrative: CC: Suprapubic area infection 39-year-old transgender female Presents with soft tissue infection through suprapubic area Imaging indicates possible perineal involvement from anterior rectal through lisa clitoral area Discussed with Cherri admission for IV antibiotics and possible examination under anesthesia. Outlined the nature of her transgender procedure has disrupted normal planes with prostatic posterior fascia disruption to create lisa vagina which can complicate typical infectious process. She is considering leaving emergency department and going to [facility] for evaluation with her transgender surgeon. This is not an unreasonable decision. I do recommend that she understand the severity of this possible infection and requirement for IV antibiotics. Review of Systems 2 Constitutional: Constitutional: Reports as per HPI and Reports no additional constitutional complaints Cardiovascular: Cardiovascular: Reports as per HPI and Reports no additional cardiovascular complaints Respiratory: Respiratory: Reports as per HPI and Reports no additional respiratory complaints Gastrointestinal: Gastrointestinal: Reports as per HPI and Reports no additional gastrointestinal complaints Genitourinary: Genitourinary: Reports as per HPI Musculoskeletal: Musculoskeletal: Reports no additional musculoskeletal complaints and Reports as per HPI Neurologic: Reports system reviewed and no additional complaints, except as documented and Reports as per HPI [facility] Past Medical History Medical History PTSD (post-traumatic stress disorder) Depression with anxiety Carpal tunnel syndrome, bilateral Status post gender reassignment surgery Breast implant in situ Chronic pain syndrome Spondylolysis, 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 Arthritis Surgical History Surgical History History of breast implant removal Person who has undergone gender reassignment surgery Social History Social History Alcohol intake: current Alcohol intake frequency: holidays/special occasions only Alcohol type: wine Patient Tobacco Use Status: Former Tobacco user Smoked in Last 30 Days: No Substance Use Type: Marijuana Advance Directives: No Advance Directives Information Provided: Yes Do you have a plan to hurt others: No Plan Current occupational status: disabled Current occupation: rt hand Meds Allergies Allergy/AdvReac Type Severity Reaction Status Date / Time cockroach Allergy Rash Verified 12/17/24 03:18 feathers Allergy Rash Verified 12/17/24 03:18 Home Medications ?Medication ?Instructions ?Recorded ?Confirmed ?Last Taken ?Type melatonin 5 mg capsule 5 mg PO .hs 02/13/21 09/21/24 Unknown History oxybutynin chloride 10 mg 10 mg PO DAILY 03/13/21 09/21/24 Unknown History tablet,extended release 24 hr duloxetine 30 mg capsule,delayed 30 mg PO DAILY 12/11/21 09/21/24 Unknown History release aripiprazole 2 mg tablet 2 mg PO DAILY 07/15/22 09/21/24 Unknown History duloxetine 60 mg capsule,delayed 60 mg PO DAILY 07/15/22 09/21/24 Unknown History release multivitamin 1 tab PO DAILY 07/15/22 09/21/24 Unknown History aripiprazole 5 mg tablet 5 mg PO DAILY 09/09/22 09/21/24 Unknown History doxycycline monohydrate 100 mg 100 mg PO BID 09/09/22 09/21/24 Unknown History capsule melatonin 5 mg tablet 5 mg PO BEDTIME 10/10/22 09/21/24 Unknown History testosterone 1.62 % (20.25 mg/1.25 0 mg topical 01/12/23 09/21/24 Unknown History gram) transdermal gel packet cetirizine 10 mg tablet 10 mg PO DAILY 02/09/23 09/21/24 Unknown History testosterone 0 mg topical 02/09/23 09/21/24 Unknown History cariprazine 1.5 mg capsule 1.5 mg PO DAILY 04/13/23 09/21/24 Unknown History (Vraylar) cariprazine 3 mg capsule (Vraylar) 3 mg PO DAILY 08/03/23 09/21/24 Unknown History clindamycin phosphate 1 % topical 1 appl topical BID 10/01/23 09/21/24 Unknown History gel cholecalciferol (vitamin D3) 25 25 mcg PO DAILY 11/17/24 Unknown History mcg (1,000 unit) tablet estradiol valerate 20 mg/mL mg IM 11/17/24 Unknown History intramuscular oil Physical Exam 2 Vital Signs: Vital Signs: Last Vital Signs Temp 98.1 F 12/17/24 10:47 Pulse 71 12/17/24 10:47 Resp 20 12/17/24 10:47 BP 106/72 12/17/24 10:47 Pulse Ox 95 12/17/24 10:47 O2 Del Method Room Air 12/17/24 10:47 BMI result Body Mass Index 29.7 Const: General: cooperative, healthy appearing, comfortable and no acute distress Orientation/consciousness: patient oriented x3 HEENT: Face and sinus: Yes normal facial exam Mouth: moist mucous membranes Neck: Neck: Yes normal visual inspection, Yes full ROM and Yes trachea midline Chest: Chest palpation & inspection: normal inspection of the chest Resp: Effort & Inspection: normal respiratory effort, able to speak in complete sentences and no respiratory distress GI: Inspection: Yes normal to inspection Back/Spine/Pelvis: Cervical Spine: normal cervical lordosis Thoracic/Lumbar Spine: thoracic and lumbar spine normal to inspection Skin: General skin exam: no rashes or lesions noted Neuro: General: patient oriented x3, tone normal and moves all extremities Extrem: General: Yes normal to inspection and Yes capillary refill normal Results Labs 12/17/24 08:11 12/17/24 08:11 Labs: Abnormal lab results 12/17/24 Range/Units 08:11 WBC 12.1 H (4.8-10.8) X10*3/uL MCHC 35.7 H (31.0-35.0) g/dl MPV 8.6 L (9.4-12.3) fL Abs Immat Gran (auto) 0.04 H (0.00-0.03) X10*3/uL Anion Gap 10 L (12-20) AST 42 H (5-31) U/L ALT 39 H (0-31) U/L Short CBC 12/17/24 Range/Units 08:11 WBC 12.1 H (4.8-10.8) X10*3/uL Hgb 14.2 (12.0-16.0) g/dl Hct 39.8 (37.0-47.0) % Plt Count 283 (160-400) X10*3/uL BMP 12/17/24 08:11 Sodium 140 Potassium 4.3 Chloride 108 Carbon Dioxide 26 BUN 13 Creatinine 0.66 Calcium 9.1 Liver Function 12/17/24 Range/Units 08:11 Total Bilirubin 0.8 (0.0-1.0) mg/dL AST 42 H (5-31) U/L ALT 39 H (0-31) U/L Alkaline Phosphatase 94 (39-117) U/L Albumin 4.3 (3.5-5.0) g/dL All other labs normal. Assessment and Plan (1) Abscess, suprapubic: Status: Acute Plan We will require IV antibiotics with possible re-examination of suprapubic and perineal infection Procedures Date of Service Date of Service: 12/17/24
--- NOTE | 2024-12-17 13:43 | PC.NURSE ---
Addendum entered by Piper Hernández RN 12/17/24 13:44: patient has remained calm and cooperative, polite. Original Note: assumed care of patient at 0700, patient has been medicated per MAR, patient is alert and oriented x4, ambulatory. IV access obtained in patient right AC #[id number].
--- NOTE | 2024-12-17 14:20 | PC.NURSE ---
nurse to nurse given to Jo at [facility].
[2024-12-17 14:22] VITALS: BP 143/90; PULSE 87; RESP 18; TEMP 36.9; O2SAT 99
--- NOTE | 2024-12-17 14:31 | PC.NURSE ---
patient informed staff that they remain hesitant on transfer to [facility]. ED provider to bedside to help patient better understand plan/outcome of transfer.
--- NOTE | 2024-12-17 14:46 | PC.NURSE ---
patient agreeable to transfer, ereport given to trace
== END 2024-12-17 14:53 | disposition short-term general hospital (02) ==
PROVIDERS: Nurse Practitioner Family; Emergency Provider Emergency Medicine; PCP Family Medicine
DX: N76.4 Abscess of vulva (principal); R00.0 Tachycardia, unspecified; R10.2 Pelvic and perineal pain; F64.0 Transsexualism
CPT/HCPCS: 36415; 56405; 74177; 80053; 83605; 84702; 85025; 87040; 96361; 96372; 96374; 99284; 99285; J0696; J2003; J2270; Q9967

== ENCOUNTER → 2024-12-17 04:10 | Outpatient (BNV) | payer OTHER, SELFPAY | PROVIDERS: Emergency Provider Emergency Medicine; PCP Family Medicine; Visit Provider Urology | DX: L02.219 Cutaneous abscess of trunk, unspecified (principal) | CPT/HCPCS: 99283 ==

== ENCOUNTER → 2024-12-17 07:57 | Outpatient (BNV) | payer OTHER, SELFPAY | PROVIDERS: Emergency Provider Emergency Medicine; PCP Family Medicine; Visit Provider Radiology Diagnostic Radiology | DX: N36.1 Urethral diverticulum (principal) | CPT/HCPCS: 74177 ==

== ENCOUNTER 2025-01-12 13:35 | Outpatient (AMB) | payer OTHER, SELFPAY ==
[2025-01-12 13:40] VITALS: BP 153/85; PULSE 79; O2SAT 98; BMI 29.0
--- NOTE | 2025-01-12 13:40 | MHC.OFFVIS ---
Vital Signs 01/12/25 13:40 Height 5 ft 6 in Weight 180 lb BMI 29.0 BP 153/85 H Blood Pressure Location Rt brachial Position Sitting Pulse 79 Pulse Source Pulse Oximeter Pulse Oximetry (%) 98 Oxygen Delivery Method Room Air Intake Visit Reasons: Pill Count Allergies cockroach Allergy (Verified 01/12/25 13:40) Rash feathers Allergy (Verified 01/12/25 13:40) Rash HPI Comments Details: Arleth is here for the follow-up and pill count. She reports pain today is better than the last time at it is 5/10 today. She reports that opioid medications helps her pain. She denies side effects of the opioid medications. She denies constipation. Pill count today: She supposed to have 45 pills in her possession. She came with 54 pills in her possession. Therefore her pill count is correct. It demonstrates responsible attitude to were the opioid medications. She was in physical therapy to help her pelvic floor pain. She reported that right now her pelvic floor pain is better and her physical therapy at this time is not needed. She wants to return to physical therapy if her pain in pelvic floor we will become stronger. She also complains on pain in the knee. She is scheduled for infrapatellar saphenous nerve injection in February. She picked up her medication on 12/29/2024 She will be prescribed new medication script on 01/28/2025 Next pill count appointment in 1 month. 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 Alert and oriented. Mood and affect appropriate. Follows and participates in conversation appropriately. Respiratory effort is unlabored. No cough. Able to transition from sit to stand unassisted. Uses cane with ambulation. Ambulates with bilaterally normal heel strike and toe off. General: Yes no CVA tenderness Back/Spine/Pelvis Back: no CVA tenderness Thoracic/Lumbar Spine: thoracic and lumbar spine normal to inspection Extrem Other: Tenderness on palpation in the projection of the right knee joint. Crepitus in the ROM right knee joint. General: Yes capillary refill normal, Yes no clubbing, cyanosis or edema and Yes no calf tenderness Psych Appearance: grossly normal Speech and movement: Normal speech and movement present and Pressured speech present Affect: Sad affect present and Hostile affect present Attitude: cooperative Thought process: Normal thought process present and Circumstantial thought process present Thought content: Normal thought content present, suicidality (none) and no hallucinations Insight: Good insight present (Psych) Judgement: Good judgement present (Psych) Assessment & Plan Assessment & Plan (1) Chronic pain syndrome: Code(s): G89.4 - Chronic pain syndrome Category: Medical (2) Chronic, continuous use of opioids: Code(s): F11.90 - Opioid use, unspecified, uncomplicated Category: Medical (3) Bilateral primary osteoarthritis of knee: Code(s): M17.0 - Bilateral primary osteoarthritis of knee Category: Medical (4) Spondylosis of lumbar region without myelopathy or radiculopathy: Code(s): M47.816 - Spondylosis without myelopathy or radiculopathy, lumbar region Category: Medical (5) Polyarthralgia: Code(s): M25.50 - Pain in unspecified joint Category: Medical (6) Bilateral knee pain: Code(s): M25.561 - Pain in right knee; M25.562 - Pain in left knee Category: Medical (7) Osteoarthritis of right knee: Code(s): M17.11 - Unilateral primary osteoarthritis, right knee Category: Medical Plan Mass pat is reviewed and without concerns. She demonstrates responsible attitude to opioid medications. She will refill her medication today on 01/28/2025 Her next pill count and follow-up appoint is scheduled in 1 month. She completed physical therapy for pelvic floor. She reports improvement. Reports significant discomfort in the right knee. S she is scheduled for infrapatellar saphenous nerve injection on the right. Medications: Refilled oxycodone-acetaminophen 5-325 mg (Percocet) 1 tab PO TID 30 days PRN 90 tabs 0RF severe pain (scale score 7-10) G89.4 - Chronic pain syndrome, M43.06 - Spondylolysis, lumbar region, M46.1 - Sacroiliitis, not elsewhere classified Coding Level of Care Code Est Pt Level 3 (86509) Diagnoses Chronic pain syndrome G89.4 Chronic, continuous use of opioids F11.90 Bilateral primary osteoarthritis of knee M17.0 Spondylosis of lumbar region without myelopathy or radiculopathy M47.816 Polyarthralgia M25.50 Bilateral knee pain M25.561; M25.562 Osteoarthritis of right knee M17.11
== END 2025-01-12 13:58 | disposition home or self-care (01) ==
LOC: HO.PMC 13:36
PROVIDERS: PCP Family Medicine; Visit Provider Anesthesiology
DX: G89.4 Chronic pain syndrome (principal); M17.0 Bilateral primary osteoarthritis of knee; M47.816 Spondylosis without myelopathy or radiculopathy, lumbar region; Z79.891 Long term (current) use of opiate analgesic; M25.50 Pain in unspecified joint; M25.561 Pain in right knee; M25.562 Pain in left knee; M17.11 Unilateral primary osteoarthritis, right knee
CPT/HCPCS: 99213

== ENCOUNTER → 2025-01-12 13:35 | Outpatient (BNVA) | payer OTHER, SELFPAY | PROVIDERS: PCP Family Medicine; Visit Provider Anesthesiology | DX: Z51.81 Encounter for therapeutic drug level monitoring (principal); F11.20 Opioid dependence, uncomplicated; M17.0 Bilateral primary osteoarthritis of knee; M47.816 Spondylosis without myelopathy or radiculopathy, lumbar region; M25.50 Pain in unspecified joint; M25.561 Pain in right knee; M25.562 Pain in left knee; M17.11 Unilateral primary osteoarthritis, right knee; G89.4 Chronic pain syndrome | CPT/HCPCS: 99212 ==

== ENCOUNTER 2025-02-09 14:01 | Outpatient (AMB) | payer OTHER, SELFPAY ==
[2025-02-09 14:12] VITALS: BP 135/81; PULSE 127; RESP 16; O2SAT 98
--- NOTE | 2025-02-09 14:12 | A.OFFVIS_ITS ---
Vital Signs 02/09/25 14:12 BP 135/81 Blood Pressure Location Lt brachial Position Sitting Respiration 16 Pulse 127 H Pulse Source Pulse Oximeter Pulse Oximetry (%) 98 Oxygen Delivery Method Room Air Intake Visit Reasons: Pill count form Intake Note: Pt states she last took percocet 02/09/25 @ 10am Meat Counter Worker Required: No Allergies cockroach Allergy (Verified 02/09/25 14:13) Rash feathers Allergy (Verified 02/09/25 14:13) Rash Medication List - Last Reconciled 02/09/25 by Laisha Barton LPN aripiprazole 2 mg PO DAILY aripiprazole 5 mg PO DAILY cariprazine (Vraylar) 1.5 mg PO DAILY cariprazine (Vraylar) 3 mg PO DAILY cetirizine 10 mg PO DAILY cholecalciferol (vitamin D3) 25 mcg PO DAILY clindamycin phosphate 1% 1 appl topical BID diclofenac sodium 1% (Voltaren Arthritis Pain) 2 grams topical TID PRN doxycycline monohydrate 100 mg PO BID duloxetine 60 mg PO DAILY duloxetine 30 mg PO DAILY estradiol valerate mg IM gabapentin 300 mg (3 x 100 mg) PO BID 30 days ibuprofen 600 mg PO Q6H PRN lidocaine 5% 1 patch topical DAILY melatonin 5 mg PO .hs melatonin 5 mg PO BEDTIME multivitamin 1 tab PO DAILY naloxone 4 mg/actuation (Narcan) 4 mg intranasal Q2M PRN oxybutynin chloride ER 10 mg PO DAILY oxycodone-acetaminophen 5-325 mg (Percocet) 1 tab PO TID PRN 30 days polyethylene glycol 3350 17 grams PO DAILY PRN testosterone 0 mg topical testosterone 0 mg topical HPI Comments Details: Arleth is here for the follow-up and pill count. She reports pain today is better than the last time at it is 5/10 today. She reports that before taking her pill her pain is 8 to 9/10. She reports that medications allows her to be more active perform better activities of daily living, perform better social interactions. She reports that opioid medications helps her pain. She denies side effects of the opioid medications. She denies constipation. Pill count today: She supposed to have 57 pills in her possession. She came with 60 pills in her possession. Therefore her pill count is correct. It demonstrates responsible attitude to were the opioid medications. She is asking me to prescribe her 1 more prescription of Narcan, I will do as she asked. She also complains on pain in the knee. She is scheduled for infrapatellar saphenous nerve injection in February. She picked up her medication on 12/29/2024 She will be prescribed new medication script on 01/28/2025 Next pill count appointment in 1 month. 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 Arthritis Surgical History History of breast implant removal Person who has undergone gender reassignment surgery Social History Alcohol intake: current Alcohol intake frequency: holidays/special occasions only Alcohol type: wine Patient Tobacco Use Status: Former Tobacco user Substance Use Type: Marijuana Current occupational status: disabled Current occupation: rt hand Review of Systems Const All systems reviewed & are unremarkable except as noted in HPI and below Physical Exam Vital Signs: Last Vital Signs Pulse 127 H 02/09/25 14:12 Resp 16 02/09/25 14:12 BP 135/81 02/09/25 14:12 Pulse Ox 98 02/09/25 14:12 Oxygen Delivery Method Room Air 02/09/25 14:12 General: Appears afebrile. Alert and oriented. Mood and affect appropriate. Follows and participates in conversation appropriately. Respiratory effort is unlabored. No cough. Able to transition from sit to stand unassisted. Uses cane with ambulation. Ambulates with bilaterally normal heel strike and toe off. General: Yes no CVA tenderness Back/Spine/Pelvis Back: no CVA tenderness Thoracic/Lumbar Spine: thoracic and lumbar spine normal to inspection Extrem Other: Tenderness on palpation in the projection of the right knee joint. Crepitus in the ROM right knee joint. General: Yes capillary refill normal, Yes no clubbing, cyanosis or edema and Yes no calf tenderness Psych Appearance: grossly normal Speech and movement: Normal speech and movement present and Pressured speech present Affect: Sad affect present and Hostile affect present Attitude: cooperative Thought process: Normal thought process present and Circumstantial thought process present Thought content: Normal thought content present, suicidality (none) and no hallucinations Insight: Good insight present (Psych) Judgement: Good judgement present (Psych) Assessment & Plan Assessment & Plan (1) Chronic pain syndrome: Code(s): G89.4 - Chronic pain syndrome Category: Medical (2) Chronic, continuous use of opioids: Code(s): F11.90 - Opioid use, unspecified, uncomplicated Category: Medical (3) Bilateral primary osteoarthritis of knee: Code(s): M17.0 - Bilateral primary osteoarthritis of knee Category: Medical (4) Spondylosis of lumbar region without myelopathy or radiculopathy: Code(s): M47.816 - Spondylosis without myelopathy or radiculopathy, lumbar region Category: Medical (5) Polyarthralgia: Code(s): M25.50 - Pain in unspecified joint Category: Medical (6) Bilateral knee pain: Code(s): M25.561 - Pain in right knee; M25.562 - Pain in left knee Category: Medical (7) Osteoarthritis of right knee: Code(s): M17.11 - Unilateral primary osteoarthritis, right knee Category: Medical Plan Mass pat is reviewed and without concerns. She demonstrates responsible attitude to opioid medications. She will refill her medication today on 02/28/2025, she requests to refill her gabapentin, she requests to prescribe her extra dose of Narcan. I will do as she requests. Her next pill count and follow-up appoint is scheduled in 1 month. She completed physical therapy for pelvic floor. She reports improvement. Reports significant discomfort in the right knee. S she is scheduled for infrapatellar saphenous nerve injection on the right. The procedure will be done in February. She also reports that she is going for thyroid cartilage (Kentrell's apple) shaving surgery on anterior surface of her neck. Medications: Refilled naloxone 4 mg/actuation (Narcan) spray 1 dose into ONE nostril; alternate nostrils w each dose until help arrives 4 mg intranasal Q2M PRN 2 ea 0RF opioid overdose gabapentin 300 mg (3 x 100 mg) PO BID 30 days 180 caps 8RF for pain F11.90 - Opioid use, unspecified, uncomplicated, M25.561 - Pain in right knee, M25.562 - Pain in left knee, M47.816 - Spondylosis without myelopathy or radiculopathy, lumbar region oxycodone-acetaminophen 5-325 mg (Percocet) 1 tab PO TID 30 days PRN 90 tabs 0RF severe pain (scale score 7-10) G89.4 - Chronic pain syndrome, M43.06 - Spondylolysis, lumbar region, M46.1 - Sacroiliitis, not elsewhere classified Coding Level of Care Code Est Pt Level 3 (46393) Diagnoses Chronic pain syndrome G89.4 Chronic, continuous use of opioids F11.90 Bilateral primary osteoarthritis of knee M17.0 Spondylosis of lumbar region without myelopathy or radiculopathy M47.816 Polyarthralgia M25.50 Bilateral knee pain M25.561; M25.562 Osteoarthritis of right knee M17.11
--- OUTSIDE RECORDS SUMMARY | 2025-02-09 16:27 | XMS_ITS | Encounter Summary ---
Author Organization [employer] Address [address] [place] [address] Care Team Providers Care Environmental Research Scientist Name Role Phone Sudha Richardson MD Primary Care Provider [phone] Matthew Woods MD Unavailable Encounter Details Date Type Department Care Team (Late st Contact Info) Description 11/06/2023 Telephone [facility] MEDICINE [address] [place], [place] [phone] Sudha Richardson MD [address] [place], [place] [phone] Social History Tobacco Use Types Packs/Day Years [...] Description 02/14/2025 1:30 PM EDT Clinical Support [facility] DIABETES/NUTRITION [address] [place] [address] Roberta Mckeon, RD [address] [place] [address] documented as of this encounter Visit Diagnoses Not on filedocumented in this encounter Additional Health Concerns Assessment Noted Time PHQ-9 Depression Total Score: 0 12/26/19 23 2:59 PM EST documented as of this encounter Care Teams Environmental Research Scientist Relationship Specialty Start Date End Date Sudha Richardson MD [address] [place] [address] PCP - General Family Medicine 10/19/18 Matthew Woods MD [address] [place] [id number] Pain Medicine 09/21/24 Stephanie Rice MD [address], [address] [place] [address] Plastic Surgery 12/22/24 documented as of this encounter
--- OUTSIDE RECORDS SUMMARY | 2025-02-09 16:27 | XMS_ITS | Encounter Summary ---
Author Organization [employer] Address [address] [place] [address] Care Team Providers Care Name Plate Stamping Machine Operator Name Role Phone Sudha Richardson MD Primary Care Provider [phone] Matthew Woods MD Unavailable Encounter Details Date Type Department Care Team (Late st Contact Info) Description 05/07/2023 Orders Only [facility] MEDICINE [address] [place], [place] [phone] Sudha Richardson MD [address] [place], [place] [phone] Gender dysphoria in adult Social History Tobacco [...] 1:30 PM EDT Clinical Support [facility] DIABETES/NUTRITION [address] [place] [address] Roberta Mckeon, CHARLA [address] [place] [address] documented as of this encounter Visit Diagnoses Diagnosis Gender dysphoria in adult documented in this encounter Additional Health Concerns Assessment Noted Time PHQ-9 Depression Total Score: 0 12/26/19 23 2:59 PM EST documented as of this encounter Care Teams Name Plate Stamping Machine Operator Relationship Specialty Start Date End Date Sudha Richardson MD [address] [place] [address] PCP - General Family Medicine 10/19/18 Matthew Woods MD [address] [place] [address] Drive [address] [place] [address] Pain Medicine 09/21/24 Stephanie Rice MD [address], [address] [place] [address] Plastic Surgery 12/22/24 documented as of this encounter
--- OUTSIDE RECORDS SUMMARY | 2025-02-09 16:27 | XMS_ITS | Clinical Summary ---
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 PM EST Urine us Guerline Hilton MD LAB MICROBIOLOGY - GENER AL ORDERABLES Final Result [facility] [address] [place] [address] [phone] * POCT RICHARD-14 Urine Drug Screen [...] TEST ENTER /EDIT ORDERABLES Final Result * BI Mammogram Screen w/ David w/ Implants Rocky (05/26/2024 2:20 PM EDT) Anatomical Region Laterality Modality Mammography 05/26/2024 2:20 PM EDT Narrative 06/23/2024 12:00 PM EDT ? [facility] ? [address] ?[place] [address] ? Mammography Report ? Signed ? Patient: Faraz Faraz,Cherri ?MR ?? #: [id number] ? : 1985 ?Acct:[id number] ? Age/Sex: 39 / F ?ADM Date: 05/26/24 ? Loc: HO.MAMMO ? Attending Dr: Sudha Richardson MD ? Ordering Physician: Sudha Richardson MD ?Results: 1N ?? egative ? Date of Service: 05/26/24 ?Follow Up: 1 Year From Orig ?? inal Mammogram ? Procedure(s): MM tomosynthesis screen imp BI ?? Accession Number(s): [id number] ? cc: Sudha Richardson MD ? EXAMINATION: [...] DD/ 1420 ? TD/TT: 05/26/24 1444 ? Basket Bottom Machine Operator: ? Procedure Note Ranjeet, Pete - 06/23/2024 [facility] [address] [place] [address] [place] [address] Mammography Report Signed Patient: Faraz RuthCherri #: [id number] : 1985Acct:[id number] Age/Sex: 39 / FADM Date: 05/26/24 Loc: HO.MAMMO Attending Dr: Sudha Richardson MD Ordering Physician: Sudha Richardson MDResults: 1N egative Date of Service: 05/26/24Follow Up: 1 Year From [facility] Mammogram Procedure(s): MM tomosynthesis screen imp BI Accession Number(s): [id number] cc: Sudha Richardson MD EXAMINATION: MM SCREENING [...] 06/23/24 1157 DD/ 1420 TD/TT: 05/26/24 1444 Basket Bottom Machine Operator: Sudha Richardson MD IMG BI PROCEDURES Edited R esult - Final * (ABNORMAL) Lipid Panel, Standard (04/16/2023 11:43 AM EDT) Cholesterol, Total 197 <200 mg/dL [facility] HDL Cholesterol 59 > OR = 50 mg/dL [facility] Triglycerides 75 <150 mg/dL [facility] LDL Cholesterol 121(H) mg/dL (calc) [facility] Comment: Reference range: <100 Desirable range <100 mg/dL for primary prevention; ?? <70 mg/dL for patients with CHD or diabetic patients with > or = 2 CHD risk factors. LDL-C is now calculated using the Jun calculation, which is a validated novel method providing better accuracy than the Friedewald equation in the estimation of LDL-C. Jarod MARTINEZ et al. JUSTINE. 2013;310(19): 6073-3830 (http://education.JobHive/faq/THB308) Chol/HDLC Ratio 3.3 <5.0 (calc) [facility] Non-HDL Cholesterol 138(H) <130 mg/dL (calc) [facility] Comment: For patients with diabetes plus 1 major ASCVD risk factor, treating to a non-HDL-C goal of <100 mg/dL (LDL-C of <70 mg/dL) is considered a therapeutic option. Blood Venous blood specimen / Unknown 04/16/2023 11:43 AM EDT 04/16/2023 11:44 AM EDT Narrative [facility] - 04/22/2023 11:21 AM EDT FASTING:YES FASTING: YES Sudha Richardson MD LAB BLOOD ORDERABLES Final Result [facility] [address], [place] [address] [facility] [address] [place] [address] from Last 3 Months or Most Recently Relevant to Health Maintenance Insurance [facility] < 65 Advance Directives Documents on File Type Date Recorded Patient Base Filler Expl anation Advance Directives and Living Will 06/10/2024 Health Care Proxy 06/10/24 Care Teams Drying Unit Felting Machine Operator Relationship Specialty Start Date End Date [place], [place] Sudha [address] [place] [address] PCP - General Family Medicine 10/19/18 Matthew Woods MD [address] [place] [address] Drive [address] [place] [address] Pain Medicine 09/21/24 Stephanie Rice MD 5 [facility] 8th Floor, [address] [place] [address] Plastic Surgery 12/22/24
--- OUTSIDE RECORDS SUMMARY | 2025-02-09 16:27 | XMS_ITS | Clinical Summary ---
Author Organization [facility] Address [address] [place] [address] Care Team Providers Care Washcloth Folder Name Role Phone Juvencio Richardsonbryan Taylor Primary Care Provider +- [phone] Allergies No known active allergies Medications multivitamin (THERAGRAN) tablet Take 1 tablet by mouth. 4 Active ARIPiprazole (ABILIFY) 10 mg tablet Take 10 mg by mouth daily. Active buPROPion (WELLBUTRIN) 100 mg tablet Take 100 mg by mouth. Active cetirizine (ZyrTEC) 10 mg chewable tablet Chew and swallow 10 mg by mouth daily. 4 Active cholecalcifero l (VITAMIN D3) 1,000 unit tablet SMARTSI Tablet(s) By Mouth Daily Active DULoxetine DR (CYMBALTA) 60 mg capsule Take 60 mg by mouth once a day. 5 Active estradiol valerate (DELESTROGEN) 20 mg/mL injection Take 1 ml intramuscular q 2 weeks; DISCONTINUE 40mg/ml dose 4 Active fluticasone propionate (FLONASE) 50 mcg/actuation nasal spray SMARTSI [place](s) Both Nares Daily Active gabapentin (NEURONTIN) 100 mg capsule SMARTSI Capsule(s) By Mouth Twice Daily 5 Active oxyCODONE-acet aminophen (PERCOCET) 5-325 mg tablet SMARTSI Tablet(s) By Mouth 3 Times Daily PRN Active testosterone 20.25 mg/1.25 gram (1.62 %) gel in metered-dose pump use one pump by topical rout every other day 4 Active Encounters Date Type Department Care Team Description 01/05/2025 11:30 AM EDT Office Visit [facility] Plastic Cosmetic Surgery [address] [place] [address] Radio Station Operator: Shaunna Felipe MD Transgender (Primary Dx); Gender dysphoria from Last 3 Months Social History Tobacco Use Types Packs/Day Years Used Date Smoking Tobacco: Never Assessed Comments Unknown Sex and Gender Information Value Date Recorded Sex Assigned at Not on file Legal Sex Female 9:26 AM EST Gender Identity Not on file Sexual Orientation Not on file Plan of Treatment Upcoming Encounters Date Type Department Care Team (Late st Contact Info) Description 06/27/2025 Hospital Encounter [facility] Operating Room [address] [place] [address] Shaunna Sosa MD [address] [place] [address] Scheduled Procedures Name Priority Associated Diagnoses Date/Ti me UNLISTED PROCEDURE, TRACHEA, BRONCHI Transgender Gender dysphoria Health Maintenance Due Date Last Done Comments Cervical Cancer Screening 1985 HPV and Pap Smear 1985 Hepatitis C Screening 1985 Pap Smear 1985 Varicella Vaccines (1 of 2 - 13+ 2-dose series) 1996 Mammogram 2023 COVID-19 Vaccine ( - season) 2024 04/05/2021, 03/08/2021 Alcohol/Substance Use Screening 10/19/2024 Depression Screening and Follow-Up 10/19/2024 Social Drivers of Health Annual Screening 10/19/2024 Influenza Vaccine (Season Ended) 2025 07/21/2019, 08/27/2017, 07/17/2016, Additional history exists DTaP,Tdap,and Td Vaccines (3 - Td or Tdap) 02/04/2034 02/05/2024, 07/17/2016 RSV Vaccine (60+ years old and patients) (1 - 1-dose 75+ series) 2058 Hepatitis B Vaccines Completed 08/12/2023, 04/15/2023, 07/21/2019 HIV Screening Completed 12/12/2024, 11/20, 04/16/2023 Pneumococcal Vaccine: Pediatric (0-5 Years) and At-Risk Patients (6-50 Years) Aged Out No longer eligible based on patient's age to complete this topic Insurance [facility] SHASHI GONCALVES [id number] Advance Directives Healthcare Agents on File Name Relationship Healthcare Agent Relationshi p Communication Jose Alves Box Repairer Next of Kin [phone] (Edda vaca) Care Teams Washcloth Folder Relationship Specialty Start Date End Date Sudha Richardson [address] [place] [address] PCP - General Family Medicine 09/07/24
--- OUTSIDE RECORDS SUMMARY | 2025-02-09 16:27 | XMS_ITS | Encounter Summary ---
Author Organization [employer] Address [address] [facility] [address] 7t [place] [address] Care Team Providers Care Mobile Therapist Name Role Phone Sudha Richardson MD Primary Care Provider +1- [phone] Matthew Woods MD Unavailable Reason for Visit * Reason Comments Med Refill Encounter Details Date Type Department Care Team (Late st Contact Info) Description 03/26/2024 Refill [facility] MEDICINE [address] [place], [place] [phone] Sudha Richardson MD 230 [place] [address] Urinary incontinence, unspecified type Social History Tobacco [...] Description 02/14/2025 1:30 PM EDT Clinical Support [facility] DIABETES/NUTRITION [address] [place] [address] [place] [address] documented as of this encounter Visit Diagnoses Diagnosis Urinary incontinence, unspecified type documented in this encounter Additional Health Concerns Assessment Noted Time PHQ-9 Depression Total Score: 0 12/26/19 23 2:59 PM EST documented as of this encounter Care Teams Mobile Therapist Relationship Specialty Start Date End Date Sudha Richardson MD [address] [place] [address] PCP - General Family Medicine 10/19/18 Matthew Woods MD [address] [place] [address] Pain Medicine 09/21/24 Stephanie Rice MD [address] [place] [address] 8th Floor, [address] [place] [address] Plastic Surgery 12/22/24 documented as of this encounter
--- OUTSIDE RECORDS SUMMARY | 2025-02-09 16:27 | XMS_ITS | Encounter Summary ---
Author Organization [employer] Address [address] [facility] [address] 7t [place] [address] Care Team Providers Care Keypunch Operator Name Role Phone Sudha Richardson MD Primary Care Provider +1- [phone] Matthew Woods MD Unavailable Encounter Details Date Type Department Care Team (Late st Contact Info) Description 08/31/2024 Orders Only [facility] MEDICINE 230 [place], [place] [phone] Sudha Richardson MD 230 [place], [place] [phone] Social History Tobacco Use Types Packs/Day Years [...] Description 02/14/2025 1:30 PM EDT Clinical Support [facility] DIABETES/NUTRITION [address] [place] [address] [place] [address] documented as of this encounter Visit Diagnoses Not on filedocumented in this encounter Additional Health Concerns Assessment Noted Time PHQ-9 Depression Total Score: 24 024 9:39 AM EDT documented as of this encounter Care Teams Keypunch Operator Relationship Specialty Start Date End Date Sudha Richardson MD 230 [place] [address] PCP - General Family Medicine 10/19/18 Matthew Woods MD [address] [place] [address] Pain Medicine 09/21/24 Stephanie Rice MD 5 [facility] 8th Floor, [address] [place] [address] Plastic Surgery 12/22/24 documented as of this encounter
--- OUTSIDE RECORDS SUMMARY | 2025-02-09 16:27 | XMS_ITS | Encounter Summary ---
Author Organization [employer] Address [address] [facility] [address] 7t [place] [address] Care Team Providers Care Grain Cleaner Name Role Phone Sudha Richardson MD Primary Care Provider +1- [phone] Matthew Woods MD Unavailable Reason for Visit * Reason Onset Date Comments Error 01/05/2024 Encounter Details Date Type Department Care Team ([facility] st Contact Info) Description 01/05/2024 Telephone [facility] MEDICINE 230 [place], [place] [phone] Sudha Richardson MD [address] [place], [place] [phone] Error Social History Tobacco Use Types Packs/Day [...] 02/14/2025 1:30 PM EDT Clinical Support [facility] DIABETES/NUTRITION 230 [place] [address] [place] [address] documented as of this encounter Visit Diagnoses Not on filedocumented in this encounter Additional Health Concerns Assessment Noted Time PHQ-9 Depression Total Score: 0 12/26/19 23 2:59 PM EST documented as of this encounter Care Teams Grain Cleaner Relationship Specialty Start Date End Date Sudha Richardson MD [address] [place] [address] PCP - General Family Medicine 10/19/18 Matthew Woods MD [address] [place] [address] Pain Medicine 09/21/24 Stephanie Rice MD [address] [place] [address] 8th Floor, [address] [place] [address] Plastic Surgery 12/22/24 documented as of this encounter
--- OUTSIDE RECORDS SUMMARY | 2025-02-09 16:27 | XMS_ITS | Encounter Summary ---
Author Organization [employer] Address [address] [facility] [address] 7t [place] [address] Care Team Providers Care Aluminizer Name Role Phone Sudha Richardson MD Primary Care Provider +1- [phone] Matthew Woods MD Unavailable Reason for Visit * Reason Onset Date Comments Durable Medical Equipment 05/20/2023 Encounter Details Date Type Department Care Team (Late st Contact Info) Description 05/20/2023 Telephone [facility] MEDICINE 230 [place], [place] [phone] Sudha Richardson MD 230 [place], [place] [phone] Durable Medical Equipment Social History Tobacco Use [...] 02/14/2025 1:30 PM EDT Clinical Support [facility] DIABETES/NUTRITION 230 [place] [address] Roberta Mckeon, CHARLA [address] [place] [address] documented as of this encounter Visit Diagnoses Not on filedocumented in this encounter Additional Health Concerns Assessment Noted Time PHQ-9 Depression Total Score: 0 12/26/19 23 2:59 PM EST documented as of this encounter Care Teams Aluminizer Relationship Specialty Start Date End Date Sudha Richardson MD [address] [place] [address] PCP - General Family Medicine 10/19/18 Matthew Woods MD [address] [place] [address] Pain Medicine 09/21/24 Stephanie Rice MD [address] [place] [address] 8th Floor, [address] [place] [address] Plastic Surgery 12/22/24 documented as of this encounter
--- OUTSIDE RECORDS SUMMARY | 2025-02-09 16:27 | XMS_ITS | Referral Summary ---
Author Organization [facility] Address [address] [place] [address] Care Team Providers Care Solar Energy Sales Specialist Name Role Phone Sudha Richardson Primary Care Provider +1- [phone] Encounters Date Type Department Care Team Description 01/05/2025 11:30 AM EDT Office Visit [facility] Plastic Cosmetic Surgery [address] [place] [address] Environmental Service Aide: Shaunna Felipe MD Transgender (Primary Dx); Gender dysphoria from Last 3 Months Allergies No known active allergies Medications multivitamin [...] propionate (FLONASE) 50 mcg/actuation nasal spray SMARTSI [place](s) Both Nares Daily Active gabapentin (NEURONTIN) 100 mg capsule [facility]SI Capsule(s) By Mouth Twice Daily 5 Active oxyCODONE-acet aminophen (PERCOCET) 5-325 mg tablet [facility]SI Tablet(s) By Mouth 3 Times Daily PRN Active testosterone 20.25 mg/1.25 gram (1.62 %) gel in metered-dose pump use one pump by topical rout every other day 4 Active Social History Tobacco Use Types Packs/Day Years Used Date Smoking Tobacco: Never Assessed Comments Unknown Sex and Gender Information Value Date Recorded Sex Assigned at Not on file Legal Sex Female 9:26 AM EST Gender Identity Not on file Sexual Orientation Not on file Plan of Treatment Upcoming Encounters Date Type Department Care Team (Late st Contact Info) Description 06/27/2025 Hospital Encounter [facility] Operating Room [address] [place], [place] [phone] Shaunna Sosa MD [address] [place] [address] Scheduled Procedures Name Priority Associated Diagnoses Date/Ti me UNLISTED PROCEDURE, TRACHEA, BRONCHI Transgender Gender dysphoria [place] [address] [address] [place] [address] [employer] Advance Directives Healthcare Agents on File Name Relationship Healthcare Agent Relationshi p Communication Jose Alves Manager Of Tax Next of Kin [phone] (Edda vaca) Care Teams Solar Energy Sales Specialist Relationship Specialty Start Date End Date [place], Sudha Taylor [address] [place] [address] PCP - General Family Medicine 09/07/24
--- OUTSIDE RECORDS SUMMARY | 2025-02-09 16:27 | XMS_ITS | Encounter Summary ---
Author Organization [employer] Address [address] [facility] [address] 7t [place] [address] Care Team Providers Care Freight Shipping Agent Name Role Phone Sudha Richardson MD Primary Care Provider +1- [phone] Matthew Woods MD Unavailable Reason for Visit * Reason Onset Date Comments triage 02/04/2023 Encounter Details Date Type Department Care Team (Late st Contact Info) Description 02/04/2023 Telephone [facility] MEDICINE 230 [place], [place] [phone] Sudha Richardson MD 230 [place], [place] [phone] triage Social History Tobacco Use Types Packs/Day [...] Dr. Richardson. Pt is advised to come [facility] for care for nausea and vomiting and [...] Description 02/14/2025 1:30 PM EDT Clinical Support [facility] DIABETES/NUTRITION 230 [place] [address] [place], [place] [phone] documented as of this encounter Visit Diagnoses Not on filedocumented in this encounter Additional Health Concerns Assessment Noted Time PHQ-9 Depression Total Score: 0 12/26/19 23 2:59 PM EST documented as of this encounter Care Teams Freight Shipping Agent Relationship Specialty Start Date End Date Sudha Richardson MD [address] [place] [address] PCP - General Family Medicine 10/19/18 Matthew Woods MD [address] [place] [address] [address] [place] [address] Pain Medicine 09/21/24 Stephanie Rice MD [address] [place] [address] 8th Floor, [address] [place] [address] Plastic Surgery 12/22/24 documented as of this encounter
--- OUTSIDE RECORDS SUMMARY | 2025-02-09 16:27 | XMS_ITS | Encounter Summary ---
Author Organization [employer] Address [address] [facility] [address] 7t [place] [address] Care Team Providers Care Field Service Supervisor Name Role Phone Harn[place], Sudha FROST Primary Care Provider +1- [phone] Matthew Woods MD Unavailable Reason for Visit * Reason Comments Med Refill Encounter Details Date Type Department Care Team (Late st Contact Info) Description 01/06/2024 Refill [facility] MEDICINE 230 [place], [place] [phone] Atiya Alegria MD 230 [place] [address] Urinary incontinence, unspecified type Social History Tobacco [...] 1:30 PM EDT Clinical Support [facility] DIABETES/NUTRITION 230 [place] [address] [place] [address] documented as of this encounter Visit Diagnoses Diagnosis Urinary incontinence, unspecified type documented in this encounter Additional Health Concerns Assessment Noted Time PHQ-9 Depression Total Score: 0 12/26/19 23 2:59 PM EST documented as of this encounter Care Teams Field Service Supervisor Relationship Specialty Start Date End Date Sudha Richardson MD 230 [place] [address] PCP - General Family Medicine 10/19/18 Matthew Woods MD [address] [place] [address] Pain Medicine 09/21/24 Stephanie [place] MD [address] Floor, [address] [place] [address] Plastic Surgery 12/22/24 documented as of this encounter
--- OUTSIDE RECORDS SUMMARY | 2025-02-09 16:27 | XMS_ITS | Encounter Summary ---
Author Organization [employer] Address [address] 7t [place] [address] Care Team Providers Care Civil Technician Name Role Phone Sudha Richardson MD Primary Care Provider +1- [phone] Matthew Woods MD Unavailable Reason for Visit * Reason Comments Med Refill Encounter Details Date Type Department Care Team (Late st Contact Info) Description 01/23/2023 Refill [facility] MEDICINE 230 [place], [place] [phone] Sudha Richardson MD 230 [place] [address] Gender identity disorder of adulthood Social History [...] 1:30 PM EDT Clinical Support [facility] DIABETES/NUTRITION 230 [place] [address] [place] [address] documented as of this encounter Visit Diagnoses Diagnosis 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
--- OUTSIDE RECORDS SUMMARY | 2025-02-09 16:27 | XMS_ITS | Encounter Summary ---
Author Organization [employer] Address [address] [facility] [address] 7t [place] [address] Care Team Providers Care Floor Polisher Name Role Phone Sudha Richardson MD Primary Care Provider +1- [phone] Matthew Woods MD Unavailable Encounter Details Date Type Department Care Team (Late st Contact Info) Description 04/22/2023 Orders Only [facility] MEDICINE 230 [place], [place] [phone] Sudha Richardson MD 230 [place], [place] [phone] Gender identity disorder of adulthood (Primary Dx) [...] 1:30 PM EDT Clinical Support [facility] DIABETES/NUTRITION [address] [place] [address] Roberta Mckeon, CHARLA [address] [place] [address] Scheduled Orders Name Type Priority Associated Diagnoses [...] documented as of this encounter Care Teams Floor Polisher Relationship Specialty Start Date End Date Sudha Richardson MD [address] [place] [address] PCP - General Family Medicine 10/19/18 Matthew Woods MD [address] [place] [address] Pain Medicine 09/21/24 Stephanie [place] MD [address] [place] [address] Floor, [address] [place] [address] Plastic Surgery 12/22/24 documented as of this encounter
--- OUTSIDE RECORDS SUMMARY | 2025-02-09 16:27 | XMS_ITS | Encounter Summary ---
Author Organization [employer] Address [address] [facility] [address] 7t [place] [address] Care Team Providers Care On Site Manager Name Role Phone Sudha Richardson MD Primary Care Provider +1- [phone] Matthew Woods MD Unavailable Encounter Details Date Type Department Care Team (Late st Contact Info) Description 02/09/2023 Orders Only [facility] MEDICINE 230 [place], [place] [phone] Sudha Richardson MD 230 [place], [place] [phone] Social History Tobacco Use Types Packs/Day Years [...] Description 02/14/2025 1:30 PM EDT Clinical Support [facility] DIABETES/NUTRITION 230 [place] [address] Roberta Mckeon, CHARLA [address] [place] [address] documented as of this encounter Visit Diagnoses Not on filedocumented in this encounter Additional Health Concerns Assessment Noted Time PHQ-9 Depression Total Score: 0 12/26/19 23 2:59 PM EST documented as of this encounter Care Teams On Site Manager Relationship Specialty Start Date End Date Sudha Richardson MD 230 [place] [address] PCP - General Family Medicine 10/19/18 Matthew Woods MD [address] [place] [address] Drive [address] [place] [address] Pain Medicine 09/21/24 Stephanie Rice MD 5 [facility] 8th Floor, [address] [place] [address] Plastic Surgery 12/22/24 documented as of this encounter
--- OUTSIDE RECORDS SUMMARY | 2025-02-09 16:27 | XMS_ITS | Encounter Summary ---
Author Organization [employer] Address [address] [facility] [address] 7t [place] [address] Care Team Providers Care Shipyard Painting Supervisor Name Role Phone Sudha Richardson MD Primary Care Provider +1- [phone] Matthew Woods MD Unavailable Reason for Visit * Reason Onset Date Comments Referral 12/11/2022 Encounter Details Date Type Department Care Team (Late st Contact Info) Description 12/11/2022 Telephone [facility] MEDICINE 230 [place], [place] [phone] Sudha Richardson MD 230 [place], [place] [phone] Referral Social History Tobacco Use Types Packs/Day [...] Tc from pt requesting a referral to [facility] PT for an 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 Needs a written referral with details. Pt claims that without it, no process can be down. [facility] PT number is [phone] press number 2. Pt states that this is through moose coordinator for pt. Please contact pt [phone] documented in this encounter Plan of Treatment Upcoming Encounters Date Type Department Care Team (Late st Contact Info) Description 02/14/2025 1:30 PM EDT Clinical Support [facility] DIABETES/NUTRITION 230 [place] [address] 230 [place] [address] documented as of this encounter Visit Diagnoses Not on filedocumented in this encounter Care Teams Shipyard Painting Supervisor Relationship Specialty Start Date End Date Sudha Richardson MD 230 [place] [address] PCP - General Family Medicine 10/19/18 Matthew Woods MD [address] [place] [address] Pain Medicine 09/21/24 Stephanie Rice MD [address] [place] [address] 8th Floor, [address] [place] [address] Plastic Surgery 12/22/24 documented as of this encounter
--- OUTSIDE RECORDS SUMMARY | 2025-02-09 16:27 | XMS_ITS | Encounter Summary ---
Author Organization [employer] Address 75 [facility] 7t [place] [address] Care Team Providers Care Dress Operator Name Role Phone Sudha Richardson MD Primary Care Provider +1- [phone] Matthew Woods MD Unavailable Encounter Details Date Type Department Care Team (Late Contact Info) Description 11/17/2022 Orders Only [facility] MEDICINE 230 [place] [address] Grabiel Sanders MD [address] [place] [address] Social History Tobacco Use Types Packs/Day Years [...] Upcoming Encounters Date Type Department Care Team ([facility] Contact Info) Description 02/14/2025 1:30 PM EDT Clinical Support [facility] DIABETES/NUTRITION [address] [place] [address] [place] [address] documented as of this encounter Procedures Procedure Name Priority Date/Time Associated Diagnosis Comments XR CHEST 2 VIEWS Routine 11/27/2022 3:16 PM EST documented in this encounter Results * XR Chest 2 Views (11/27/2022 3:16 PM EST) Anatomical Region Laterality Modality Chest Radiographic Kym ging 11/27/2022 3:16 PM EST Narrative 12/03/2022 11:47 AM EST ? [facility] ?[address] ?[place] [address] ?XRay Report ? Signed ? Patient: Faraz Faraz,Cherri ?MR ?? #: [id number] ? : 1985 ?Acct:[id number] ? Age/Sex: 37 / F ?ADM Date: 11/27/22 ? Loc: HO.XRAY ? Attending Dr: Grabiel Sanders MD ? Ordering Physician: Grabiel Sanders MD ?? Date of Service: 11/27/22 ?? Procedure(s): XR chest 2V ?? Accession Number(s): [id number] ? cc: Grabiel Sanders MD ? EXAMINATION: [...] 1144 ? DD/ 15 ? TD/TT: ? Cleater: LAVELLE ? Procedure Note Donotuseinterpreter, Image - 12/03/2022 [facility] [address] [place] [address] XRay Report Signed Patient: Cherri BoothMR #: [id number] : 1985Acct:[id number] Age/Sex: 37 / FADM Date: 11/27/22 Loc: HO.XRAY Attending Dr: Grabiel Sanders MD Ordering Physician: Grabiel Sanders MD Date of Service: 11/27/22 Procedure(s): XR chest 2V Accession Number(s): [id number] cc: Grabiel Sanders MD EXAMINATION: XR CHEST [...] in OV> 12/03/22 1144 DD/ 1516 TD/TT: Cleater: LAVELLE [facility] External Provider IMG XR PROCEDURES Edited Result - Final documented in this encounter Visit Diagnoses Not on filedocumented in this encounter Care Teams Dress Operator Relationship Specialty Start Date End Date Sudha Richardson MD [address] [place] [address] PCP - General Family Medicine 10/19/18 [address] [place] [address] Pain Medicine 09/21/24 Stephanie Rice MD [address] [place] [address] 8th Floor, [address] [place] [address] Plastic Surgery 12/22/24 documented as of this encounter
== END 2025-02-09 14:20 | disposition home or self-care (01) ==
PROVIDERS: PCP Family Medicine; Visit Provider Anesthesiology
DX: G89.4 Chronic pain syndrome (principal); Z79.891 Long term (current) use of opiate analgesic; M17.0 Bilateral primary osteoarthritis of knee; M47.816 Spondylosis without myelopathy or radiculopathy, lumbar region; M25.50 Pain in unspecified joint; M25.561 Pain in right knee; M25.562 Pain in left knee; M17.11 Unilateral primary osteoarthritis, right knee
CPT/HCPCS: 99213

== ENCOUNTER → 2025-02-09 14:01 | Outpatient (BNVA) | payer OTHER, SELFPAY | PROVIDERS: PCP Family Medicine; Visit Provider Anesthesiology | DX: G89.4 Chronic pain syndrome (principal); M17.0 Bilateral primary osteoarthritis of knee; M47.816 Spondylosis without myelopathy or radiculopathy, lumbar region; M25.562 Pain in left knee; M17.11 Unilateral primary osteoarthritis, right knee; F11.90 Opioid use, unspecified, uncomplicated; Z51.81 Encounter for therapeutic drug level monitoring; Z79.891 Long term (current) use of opiate analgesic | CPT/HCPCS: 99212 ==

== ENCOUNTER 2025-02-24 13:35 | Outpatient (REF) | payer OTHER, SELFPAY ==
--- NOTE | ~2025-02-24 | XR_ITS ---
EXAMINATION: XR FOOT 3 OR MORE VIEWS LEFT HISTORY: PAIN COMPARISON: Comparison is made with the prior examination dated 01/30/2023. FINDINGS: Three views of the left foot are submitted. Osseous mineralization is normal. There is no fracture or dislocation. The joint spaces are preserved. The soft tissues are unremarkable. XR/XR foot LT min 3V IMPRESSION: Unremarkable examination of the left foot. Electronically signed by: Arnav Dubois MD 02/24/2025 01:54 PM EDT
--- OUTSIDE RECORDS SUMMARY | 2025-02-24 13:38 | XMS_ITS | Encounter Summary ---
Author Organization [employer] Address [address] [facility] [address] 7t [place] [address] Care Team Providers Care Pleat Taper Name Role Phone Sudha Richardson MD Primary Care Provider +1- [phone] Matthew Woods MD Unavailable Reason for Visit * Reason Comments Med Refill Encounter Details Date Type Department Care Team (Late st Contact Info) Description 01/23/2023 Refill [facility] MEDICINE 230 [place], [place] [phone] Sudha Richardson MD 230 [place], [place] [phone] Gender identity disorder of adulthood Social History [...] Care Team (Late st Contact Info) Description 03/21/2025 2:00 PM EDT Clinical Support [facility] DIABETES/NUTRITION 230 [place] [address] 230 [place] [address] 04/27/2025 9:45 AM EDT Office Visit [facility] MEDICINE 230 [place] [address] Sudha Richardson MD 230 [place] [address] documented as of this encounter Visit Diagnoses Diagnosis 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
--- OUTSIDE RECORDS SUMMARY | 2025-02-24 13:38 | XMS_ITS | Encounter Summary ---
Author Organization [employer] Address [address] [facility] [address] 7t [place] [address] Care Team Providers Care Spiral Gear Generator Name Role Phone Sudha Richardson MD Primary Care Provider +1- [phone] Matthew Woods MD Unavailable Encounter Details Date Type Department Care Team (Latest Contact Info) Description 02/24/2025 Travel Social History Tobacco Use Types Packs/Day [...] Description 03/21/2025 2:00 PM EDT Clinical Support [facility] DIABETES/NUTRITION [address] [place] [address] [place] [address] 04/27/2025 9:45 AM EDT Office Visit [facility] MEDICINE [address] [place] [address] Sudha Richardson MD [address] [place] [address] documented as of this encounter Visit Diagnoses Not on filedocumented in this encounter Additional Health Concerns Assessment Noted Time PHQ-9 Depression Total Score: 24 024 9:39 AM EDT documented as of this encounter Care Teams Spiral Gear Generator Relationship Specialty Start Date End Date Sudha Richardson MD [address] [place] [address] PCP - General Family Medicine 10/19/18 Matthew Woods MD [address] [place] [address] Pain Medicine 09/21/24 Stephanie Rice MD 5 [facility] 8th Floor, [address] [place] [address] Plastic Surgery 12/22/24 documented as of this encounter
--- OUTSIDE RECORDS SUMMARY | 2025-02-24 13:38 | XMS_ITS | Encounter Summary ---
Author Organization [employer] Address [address] [facility] [address] 7t [place] [address] Care Team Providers Care Retrofit Installer Name Role Phone Sudha Richardson MD Primary Care Provider +1- [phone] Matthew Woods MD Unavailable Encounter Details Date Type Department Care Team (Late st Contact Info) Description 02/09/2023 Orders Only [facility] MEDICINE 230 [place], [place] [phone] Sudha Richardson MD 230 [place], [place] [phone] Social History Tobacco Use Types Packs/Day Years [...] 2:00 PM EDT Clinical Support [facility] DIABETES/NUTRITION [address] [place] [address] Roberta Mckeon, CHARLA 230 [place] [address] 04/27/2025 9:45 AM EDT Office Visit [facility] MEDICINE 230 [place] [address] Sudha Richardson MD [address] [place] [address] documented as of this encounter Visit Diagnoses Not on filedocumented in this encounter Additional Health Concerns Assessment Noted Time PHQ-9 Depression Total Score: 0 12/26/19 23 2:59 PM EST documented as of this encounter Care Teams Retrofit Installer Relationship Specialty Start Date End Date Sudha Richardson MD [address] [place] [address] PCP - General Family Medicine 10/19/18 Matthew Woods MD [address] [place] [address] Drive [address] [place] [address] Pain Medicine 09/21/24 Stephanie Rice MD [address] [place] [address] 8th Floor, [address] [place] [address] Plastic Surgery 12/22/24 documented as of this encounter
--- OUTSIDE RECORDS SUMMARY | 2025-02-24 13:38 | XMS_ITS | Encounter Summary ---
Author Organization [employer] Address [address] [facility] [address] 7t [place] [address] Care Team Providers Care Marble Supervisor Name Role Phone Sudha Richardson MD Primary Care Provider +1- [phone] Matthew Woods MD Unavailable Encounter Details Date Type Department Care Team (Late st Contact Info) Description 04/22/2023 Orders Only [facility] MEDICINE 230 [place], [place] [phone] Sudha Richardson MD 230 [place], [place] [phone] Gender identity disorder of adulthood (Primary Dx) [...] Description 03/21/2025 2:00 PM EDT Clinical Support [facility] DIABETES/NUTRITION [address] [place] [address] Roberta Mckeon, CHARLA 230 [place] [address] 04/27/2025 9:45 AM EDT Office Visit [facility] MEDICINE [address] [place] [address] Sudha Richardson MD [address] [place] [address] Scheduled Orders Name Type Priority Associated Diagnoses [...] documented as of this encounter Care Teams Marble Supervisor Relationship Specialty Start Date End Date Sudha Richardson MD [address] [place] [address] PCP - General Family Medicine 10/19/18 Matthew Woods MD [address] [place] [address] Drive [address] [place] [address] Pain Medicine 09/21/24 Stephanie Rice MD 5 [facility] 8th Floor, [address] [place] [address] Plastic Surgery 12/22/24 documented as of this encounter
--- OUTSIDE RECORDS SUMMARY | 2025-02-24 13:38 | XMS_ITS | Encounter Summary ---
Author Organization [employer] Address [address] [facility] [address] 7t [place] [address] Care Team Providers Care Logistics Operations Director Name Role Phone Sudha Richardson MD Primary Care Provider +1- [phone] Matthew Woods MD Unavailable Encounter Details Date Type Department Care Team (Late st Contact Info) Description 08/31/2024 Orders Only [facility] MEDICINE 230 [place], [place] [phone] Sudha Richardson MD 230 [place], [place] [phone] Social History Tobacco Use Types Packs/Day Years [...] Description 03/21/2025 2:00 PM EDT Clinical Support [facility] DIABETES/NUTRITION [address] [place] [address] Roberta Mckeon, CHARLA 230 [place] [address] 04/27/2025 9:45 AM EDT Office Visit [facility] MEDICINE [address] [place] [address] Sudha Richardson MD [address] [place] [address] documented as of this encounter Visit Diagnoses Not on filedocumented in this encounter Additional Health Concerns Assessment Noted Time PHQ-9 Depression Total Score: 24 024 9:39 AM EDT documented as of this encounter Care Teams Logistics Operations Director Relationship Specialty Start Date End Date Sudha Richardson MD [address] [place] [address] PCP - General Family Medicine 10/19/18 Matthew Woods MD [address] [place] [address] Pain Medicine 09/21/24 Stephanie Rice MD 5 [facility] 8th Floor, [address] [place] [address] Plastic Surgery 12/22/24 documented as of this encounter
--- OUTSIDE RECORDS SUMMARY | 2025-02-24 13:38 | XMS_ITS | Referral Summary ---
Author Organization [facility] Address [address] [place] [address] Care Team Providers Care Fur Plucker Name Role Phone Sudha Richardson Primary Care Provider +1- [phone] Encounters Date Type Department Care Team Description 01/05/2025 11:30 AM EDT Office Visit [facility] Plastic Cosmetic Surgery [address] [place] [address] Center Consultant: Shaunna Felipe MD Transgender (Primary Dx); Gender [...] propionate (FLONASE) 50 mcg/actuation nasal spray [employer] [place](s) Both Nares Daily Active gabapentin (NEURONTIN) 100 [...] st Contact Info) Description 06/27/2025 Hospital Encounter [facility] Operating Room [address] [place], [place] [phone] Shaunna Sosa MD [address] [place] [address] Scheduled Procedures Name Priority Associated Diagnoses Date/Ti me UNLISTED PROCEDURE, TRACHEA, BRONCHI Transgender Gender dysphoria [place] [address] [place] [address] [employer] Advance Directives Healthcare Agents on File Name Relationship Healthcare Agent Relationshi p Communication Jose Alves Email Producer Next of Kin [phone] (Edda vaca) Care Teams Fur Plucker Relationship Specialty Start Date End Date [place], Sudha Taylor [address] [place] [address] PCP - General Family Medicine 09/07/24
--- OUTSIDE RECORDS SUMMARY | 2025-02-24 13:38 | XMS_ITS | Encounter Summary ---
Author Organization [employer] Address [address] [facility] [address] 7t [place] [address] Care Team Providers Care Leather Products Supervisor Name Role Phone Sudha Richardson MD Primary Care Provider +1- [phone] Matthew Woods MD Unavailable Reason for Visit * Reason Onset Date Comments triage 02/04/2023 Encounter Details Date Type Department Care Team (Late st Contact Info) Description 02/04/2023 Telephone [facility] MEDICINE 230 [place], [place] [phone] Suhda Richardson MD 230 [place], [place] [phone] triage Social History Tobacco Use Types Packs/Day [...] Dr. Richardson. Pt is advised to come to [facility] for care for nausea and vomiting and [...] Description 03/21/2025 2:00 PM EDT Clinical Support [facility] DIABETES/NUTRITION 230 [place] [address] [place] [address] 04/27/2025 9:45 AM EDT Office Visit [facility] MEDICINE 230 [place] [address] Sudha Richardson MD [address] [place] [address] documented as of this encounter Visit Diagnoses Not on filedocumented in this encounter Additional Health Concerns Assessment Noted Time PHQ-9 Depression Total Score: 0 12/26/19 23 2:59 PM EST documented as of this encounter Care Teams Leather Products Supervisor Relationship Specialty Start Date End Date Sudha Richardson MD [address] [place] [address] PCP - General Family Medicine 10/19/18 Matthew Woods MD [address] [place] [address] [address] [place] [address] Pain Medicine 09/21/24 Stephanie Rice MD [address] [place] [address] Floor, [address] [place] [address] Plastic Surgery 12/22/24 documented as of this encounter
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
--- OUTSIDE RECORDS SUMMARY | 2025-02-24 13:38 | XMS_ITS | Encounter Summary ---
Author Organization [employer] Address [address] [facility] [address] 7t [place] [address] Care Team Providers Care Rail Track Maintainer Name Role Phone Sudha Richardson MD Primary Care Provider +1- [phone] Matthew Woods MD Unavailable Reason for Visit * Reason Comments Med Refill Encounter Details Date Type Department Care Team (Late st Contact Info) Description 01/06/2024 Refill [facility] MEDICINE 230 [place], [place] [phone] Atiya Alegria MD 230 [place] [address] Urinary incontinence, unspecified type Social History Tobacco [...] Description 03/21/2025 2:00 PM EDT Clinical Support [facility] DIABETES/NUTRITION [address] [place] [address] 230 [place] [address] 04/27/2025 9:45 AM EDT Office Visit [facility] MEDICINE [address] [place] [address] Sudha Richardson MD [address] [place] [address] documented as of this encounter Visit Diagnoses Diagnosis Urinary incontinence, unspecified type documented in this encounter Additional Health Concerns Assessment Noted Time PHQ-9 Depression Total Score: 0 12/26/19 23 2:59 PM EST documented as of this encounter Care Teams Rail Track Maintainer Relationship Specialty Start Date End Date Sudha Richardson MD [address] [place] [address] PCP - General Family Medicine 10/19/18 Matthew Woods MD [address] [place] [address] Pain Medicine 09/21/24 Stephanie Rice MD [address] [place] [address] 8th Floor, [address] [place] [address] Plastic Surgery 12/22/24 documented as of this encounter
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
--- OUTSIDE RECORDS SUMMARY | 2025-02-24 13:38 | XMS_ITS | Encounter Summary ---
Author Organization [employer] Address [address] [facility] [address] 7t [place] [address] Care Team Providers Care Ultrasound Technologist Sonographer Name Role Phone Sudha Richardson MD Primary Care Provider +1- [phone] Matthew Woods MD Unavailable Reason for Visit * Reason Onset Date Comments Error 01/05/2024 Encounter Details Date Type Department Care Team (Late st Contact Info) Description 01/05/2024 Telephone [facility] MEDICINE 230 [place], [place] [phone] Sudha Richardson MD 230 [place] [address] Error Social History Tobacco Use Types Packs/Day [...] Description 03/21/2025 2:00 PM EDT Clinical Support [facility] DIABETES/NUTRITION [address] [place] [address] [place] [address] 04/27/2025 9:45 AM EDT Office Visit [facility] MEDICINE [address] [place] [address] Sudha Richardson MD [address] [place] [address] documented as of this encounter Visit Diagnoses Not on filedocumented in this encounter Additional Health Concerns Assessment Noted Time PHQ-9 Depression Total Score: 0 12/26/19 23 2:59 PM EST documented as of this encounter Care Teams Ultrasound Technologist Sonographer Relationship Specialty Start Date End Date Sudha Richardson MD [address] [place] [address] PCP - General Family Medicine 10/19/18 Matthew Woods MD [address] [place] [address] Pain Medicine 09/21/24 Stephanie Rice MD [address] [place] [address] 8th Floor, [address] [place] [address] Plastic Surgery 12/22/24 documented as of this encounter
--- OUTSIDE RECORDS SUMMARY | 2025-02-24 13:38 | XMS_ITS | Encounter Summary ---
Author Organization [employer] Address [address] [facility] [address] 7t [place] [address] Care Team Providers Care Deep Sea Diver Name Role Phone Sudha Richardson MD Primary Care Provider +1- [phone] Matthew Woods MD Unavailable Reason for Visit * Reason Comments Foot Pain Encounter Details Date Type Department Care Team (Late st Contact Info) Description 02/24/2025 1:00 PM EDT Office Visit [facility] 230 [place] [address] Left foot pain Social History Tobacco Use Types Packs/Day Years [...] (185 lb) 02/24/2025 1:00 PM EDT Height - - Body Mass Index 28.98 12/12/2024 1:53 PM EST documented in this encounter Plan of Treatment Upcoming Encounters Date Type Department Care Team (Late st Contact Info) Description 03/21/2025 2:00 PM EDT Clinical Support [facility] DIABETES/NUTRITION [address] [place] [phone] 230 [place], [place] [phone] 04/27/2025 9:45 AM EDT Office Visit [facility] MEDICINE [address] [place] [address] Sudha Richardson MD 230 [place], [place] [phone] Scheduled Orders Name Type Priority Associated Diagnoses Orde r Schedule XR Foot 3+ Views Left Imaging Routine Left foot pain Expected: 02/24/2025, Expires: 02/24/2026 documented as of this encounter Visit Diagnoses Diagnosis Left foot pain Pain in soft tissues of limb documented in this encounter Additional Health Concerns Assessment Noted Time PHQ-9 Depression Total Score: 24 024 9:39 AM EDT documented as of this encounter Care Teams Deep Sea Diver Relationship Specialty Start Date End Date Sudha Richardson MD [address] [place] [address] PCP - General Family Medicine 10/19/18 Matthew Woods MD [address] [place] [address] [address] [place] [address] Pain Medicine 09/21/24 Stephanie Rice MD [address] Floor, [address] [place] [address] Plastic Surgery 12/22/24 documented as of this encounter
--- OUTSIDE RECORDS SUMMARY | 2025-02-24 13:38 | XMS_ITS | Encounter Summary ---
Author Organization [employer] Address 75 [facility] 7t [place] [address] Care Team Providers Care Grease Maker Name Role Phone Sudha Richardson MD Primary Care Provider +1- [phone] Matthew Woods MD Unavailable Reason for Visit * Reason Onset Date Comments Durable Medical Equipment 05/20/2023 Encounter Details Date Type Department Care Team (Late st Contact Info) Description 05/20/2023 Telephone [facility] MEDICINE 230 [place], [place] [phone] Sudha Richardson MD 230 [place], [place] [phone] Durable Medical Equipment Social History Tobacco Use [...] Description 03/21/2025 2:00 PM EDT Clinical Support [facility] DIABETES/NUTRITION 230 [place] [address] 230 [place] [address] 04/27/2025 9:45 AM EDT Office Visit [facility] MEDICINE 230 [place] [address] Sudha Richardson MD [address] [place] [address] documented as of this encounter Visit Diagnoses Not on filedocumented in this encounter Additional Health Concerns Assessment Noted Time PHQ-9 Depression Total Score: 0 12/26/19 23 2:59 PM EST documented as of this encounter Care Teams Grease Maker Relationship Specialty Start Date End Date Sudha Richardson MD [address] [place] [address] PCP - General Family Medicine 10/19/18 Matthew Woods MD [address] [place] [address] Drive [address] [place] [address] Pain Medicine 09/21/24 Stephanie Rice MD [address] [place] [address] Floor, [address] [place] [address] Plastic Surgery 12/22/24 documented as of this encounter
--- OUTSIDE RECORDS SUMMARY | 2025-02-24 13:38 | XMS_ITS | Encounter Summary ---
Author Organization [employer] Address [address] [facility] [address] 7t [place] [address] Care Team Providers Care Cement Mixer Name Role Phone Sudha Richardson MD Primary Care Provider +1- [phone] Matthew Woods MD Unavailable Encounter Details Date Type Department Care Team (Late st Contact Info) Description 05/07/2023 Orders Only [facility] MEDICINE 230 [place], [place] [phone] Sudha Richardson MD 230 [place], [place] [phone] Gender dysphoria in adult Social History Tobacco [...] Description 03/21/2025 2:00 PM EDT Clinical Support [facility] DIABETES/NUTRITION [address] [place] [address] Roberta Mckeon, CHARLA 230 [place] [address] 04/27/2025 9:45 AM EDT Office Visit [facility] MEDICINE [address] [place] [address] Sudha Richardson MD [address] [place] [address] [phone] documented as of this encounter Visit Diagnoses Diagnosis Gender dysphoria in adult documented in this encounter Additional Health Concerns Assessment Noted Time PHQ-9 Depression Total Score: 0 12/26/19 23 2:59 PM EST documented as of this encounter Care Teams Cement Mixer Relationship Specialty Start Date End Date Sudha Richardson MD [address] [place] [address] PCP - General Family Medicine 10/19/18 Matthew Woods MD [address] [place] [address] Drive [address] [place] [address] Pain Medicine 09/21/24 Stephanie Rice MD 5 [facility] 8th Floor, [address] [place] [address] Plastic Surgery 12/22/24 documented as of this encounter
--- OUTSIDE RECORDS SUMMARY | 2025-02-24 13:38 | XMS_ITS | Encounter Summary ---
Author Organization [employer] Address 75 [facility] 7t [place] [address] Care Team Providers Care Cooper Apprentice Name Role Phone Sudha Richardson MD Primary Care Provider +1- [phone] Matthew Woods MD Unavailable Encounter Details Date Type Department Care Team (Late Contact Info) Description 11/17/2022 Orders Only [facility] MEDICINE 230 [place] [address] Grabiel Sanders MD [address] [place], [place] [phone] Social History Tobacco Use Types Packs/Day Years [...] Upcoming Encounters Date Type Department Care Team ([facility] Contact Info) Description 03/21/2025 2:00 PM EDT Clinical Support [facility] DIABETES/NUTRITION [address] [place] [address] [place] [address] 04/27/2025 9:45 AM EDT Office Visit [facility] MEDICINE 230 [place] [address] Sudha Richardson MD 230 [place] [address] documented as of this encounter Procedures Procedure Name Priority Date/Time Associated Diagnosis Comments XR CHEST 2 VIEWS Routine 11/27/2022 3:16 PM EST documented in this encounter Results * XR Chest 2 Views (11/27/2022 3:16 PM EST) Anatomical Region Laterality Modality Chest Radiographic Kym ging 11/27/2022 3:16 PM EST Narrative 12/03/2022 11:47 AM EST ? [facility] ?[address] ?[place] [address] ?XRay Report ? Signed ? Patient: Faraz Ruth,Cherri ?MR ?? #: [id number] ? : 1985 ?Acct:[id number] ? Age/Sex: 37 / F ?ADM Date: 11/27/22 ? Loc: HO.XRAY ? Attending Dr: Grabiel Sanders MD ? Ordering Physician: Grabiel Sanders MD ?? Date of Service: 11/27/22 ?? Procedure(s): XR chest 2V ?? Accession Number(s): [id number] ? cc: Grabiel Sanders MD ? EXAMINATION: [...] in OV> ? 12/03/22 1144 ? DD/ 1516 ? TD/TT: ? Auto Body Builder Apprentice: LAVELLE ? Procedure Note Sanketjose manuelluisabdias, Image - 12/03/2022 [facility] [address] [place] [address] XRay Report Signed Patient: Cherri BoothMR #: [id number] : 1985Acct:[id number] Age/Sex: 37 / FADM Date: 11/27/22 Loc: [facility] Attending Dr: Grabiel Sanders MD Ordering Physician: Grabiel Sanders MD Date of Service: 11/27/22 Procedure(s): XR chest 2V Accession Number(s): [id number] cc: Grabiel Sanders MD EXAMINATION: XR CHEST [...] in OV> 12/03/22 1144 DD/ 1516 TD/TT: Auto Body Builder Apprentice: LAVELLE [facility] External Provider IMG XR PROCEDURES Edited Result - Final documented in this encounter Visit Diagnoses Not on filedocumented in this encounter Care Teams Cooper Apprentice Relationship Specialty Start Date End Date Sudha Richardson MD 230 [place] [address] PCP - General Family Medicine 10/19/18 Matthew Woods MD [address] [place] [address] Pain Medicine 09/21/24 Stephanie Rice MD [address] [place] [address] 8th Floor, [address] [place] [address] Plastic Surgery 12/22/24 documented as of this encounter
--- OUTSIDE RECORDS SUMMARY | 2025-02-24 13:38 | XMS_ITS | Encounter Summary ---
Author Organization [employer] Address [address] [facility] [address] 7t [place] [address] Care Team Providers Care Composition Board Press Operator Name Role Phone Sudha Richardson MD Primary Care Provider +1- [phone] Matthew Woods MD Unavailable Reason for Visit * Reason Onset Date Comments Referral 12/11/2022 Encounter Details Date Type Department Care Team (Late st Contact Info) Description 12/11/2022 Telephone [facility] MEDICINE 230 [place], [place] [phone] Sudha Richardson MD 230 [place], [place] [phone] Referral Social History Tobacco Use Types Packs/Day [...] Tc from pt requesting a referral to [facility] for an 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 Needs a written referral with details. Pt claims that without it, no process can be down. [facility] number is [phone] press number 2. Pt states that this is through [facility] coordinator for pt. Please contact pt [phone] documented in this encounter Plan of Treatment Upcoming Encounters Date Type Department Care Team (Late st Contact Info) Description 03/21/2025 2:00 PM EDT Clinical Support [facility] DIABETES/NUTRITION [address] [place] [address] [place] [address] 04/27/2025 9:45 AM EDT Office Visit [facility] MEDICINE [address] [place] [address] Sudha Richardson MD 230 [place] [address] documented as of this encounter Visit Diagnoses Not on filedocumented in this encounter Care Teams Composition Board Press Operator Relationship Specialty Start Date End Date Sudha Richardson MD 230 [place] [address] PCP - General Family Medicine 10/19/18 Matthew Woods MD [address] [place] [address] Pain Medicine 09/21/24 Stephanie Rice MD [address] [facility] 8th Floor, [address] [place] [address] Plastic Surgery 12/22/24 documented as of this encounter
--- OUTSIDE RECORDS SUMMARY | 2025-02-24 13:38 | XMS_ITS | Encounter Summary ---
Author Organization [employer] Address [address] [facility] [address] 7t [place] [address] Care Team Providers Care Svp Chief Marketing Officer Name Role Phone Sudha Richardson MD Primary Care Provider +1- [phone] Matthew Woods MD Unavailable Reason for Visit * Reason Comments Med Refill Encounter Details Date Type Department Care Team (Late st Contact Info) Description 03/26/2024 Refill [facility] MEDICINE 230 [place], [place] [phone] Sudha Richardson MD 230 [place], [place] [phone] Urinary incontinence, unspecified type Social History Tobacco [...] Description 03/21/2025 2:00 PM EDT Clinical Support [facility] DIABETES/NUTRITION [address] [place] [address] [place] [address] 04/27/2025 9:45 AM EDT Office Visit [facility] MEDICINE [address] [place] [address] Sudha Richardson MD 230 [place] [address] documented as of this encounter Visit Diagnoses Diagnosis Urinary incontinence, unspecified type documented in this encounter Additional Health Concerns Assessment Noted Time PHQ-9 Depression Total Score: 0 12/26/19 23 2:59 PM EST documented as of this encounter Care Teams Svp Chief Marketing Officer Relationship Specialty Start Date End Date Sudha Richardson MD 230 [place] [address] PCP - General Family Medicine 10/19/18 Matthew Woods MD [address] [place] [address] Pain Medicine 09/21/24 Stephanie Rice MD [address] [place] [address] 8th Floor, [address] [place] [address] Plastic Surgery 12/22/24 documented as of this encounter
--- OUTSIDE RECORDS SUMMARY | 2025-02-24 13:38 | XMS_ITS | Encounter Summary ---
Author Organization [employer] Address [address] [facility] [address] 7t [place] [address] Care Team Providers Care Power Engineer Name Role Phone Sudha Richardson MD Primary Care Provider +1- [phone] Matthew Woods MD Unavailable Encounter Details Date Type Department Care Team (Late st Contact Info) Description 11/06/2023 Telephone [facility] MEDICINE 230 [place], [place] [phone] Sudha Richardson MD 230 [place], [place] [phone] Social History Tobacco Use Types Packs/Day Years [...] Description 03/21/2025 2:00 PM EDT Clinical Support [facility] DIABETES/NUTRITION [address] [place] [address] Roberta Mckeon, RD 230 [place] [address] 04/27/2025 9:45 AM EDT Office Visit [facility] MEDICINE [address] [place] [address] Sudha Richardson MD [address] [place] [address] documented as of this encounter Visit Diagnoses Not on filedocumented in this encounter Additional Health Concerns Assessment Noted Time PHQ-9 Depression Total Score: 0 12/26/19 23 2:59 PM EST documented as of this encounter Care Teams Power Engineer Relationship Specialty Start Date End Date Sudha Richardson MD [address] [place] [address] PCP - General Family Medicine 10/19/18 Matthew Woods MD [address] [place] [address] Drive [address] [place] [address] Pain Medicine 09/21/24 Stephanie Rice MD [address] Floor, [address] [place] [address] Plastic Surgery 12/22/24 documented as of this encounter
== END 2025-02-24 13:36 | disposition home or self-care (01) ==
LOC: HO.HHCX 13:35
PROVIDERS: Visit Provider Internal Medicine
DX: M79.672 Pain in left foot (principal)
CPT/HCPCS: 73630

== ENCOUNTER → 2025-02-24 13:37 | Outpatient (BNV) | payer OTHER, SELFPAY | PROVIDERS: Visit Provider Radiology Diagnostic Radiology | DX: M79.672 Pain in left foot (principal) | CPT/HCPCS: 73630 ==

== ENCOUNTER 2025-02-28 06:21 | Outpatient (REF) | payer OTHER, SELFPAY ==
--- NOTE | ~2025-02-28 | FL_ITS ---
EXAMINATION: XR FLUOROSCOPY WITH IMAGES CLINICAL INFORMATION: Right knee pain management injection, pes bursa injection. COMPARISON: None available. TECHNIQUE: Fluoroscopy provided to: Dr. Woods Fluoroscopy time: 0.1 minutes DAP: 0.0189 mGycm2 Images: 2 FINDINGS: 2 fluoroscopic spot images of the right knee during pain management injection. Please refer to the full procedural report for details. FL/FL guidance in treatment room IMPRESSION: Fluoroscopic guidance. Electronically signed by: Juaquin Horton MD 03/01/2025 09:19 AM EDT
--- OUTSIDE RECORDS SUMMARY | 2025-02-28 06:24 | XMS_ITS | Referral Summary ---
Author Organization [facility] Address [address] [place] [address] Care Team Providers Care Access Lead Name Role Phone Sudha Richardson Primary Care Provider +1- [phone] Encounters Date Type Department Care Team Description 01/05/2025 11:30 AM EDT Office Visit [facility] Plastic Cosmetic Surgery [address] [place] [address] Deputy Register Of Deeds: Shaunna Felipe MD Transgender (Primary Dx); Gender [...] propionate (FLONASE) 50 mcg/actuation nasal spray SMARTSI [place](s) Both Nares Daily Active gabapentin (NEURONTIN) 100 [...] st Contact Info) Description 06/27/2025 Hospital Encounter [facility] Operating Room [address] [place], [place] 1905155 Shaunna Sosa MD [address] [place] [address] Scheduled Procedures Name Priority Associated Diagnoses Date/Ti me UNLISTED PROCEDURE, TRACHEA, BRONCHI Transgender Gender dysphoria [place] [address] [place] [address] [employer] Advance Directives Healthcare Agents on File Name Relationship Healthcare Agent Relationshi p Communication Jose Alves Ice Guard Skating Rink Next of Kin [phone] (Edda vaca) Care Teams Access Lead Relationship Specialty Start Date End Date Debra, Sudha Taylor [address] [place] [address] PCP - General Family Medicine 09/07/24
--- OUTSIDE RECORDS SUMMARY | 2025-02-28 06:24 | XMS_ITS | Clinical Summary ---
Author Organization [facility] Address [address] [place] [address] Care Team Providers Care Continuity Writer Name Role Phone Juvencio Richardsonbryan Taylor Primary Care Provider [phone] Allergies No known active allergies Medications multivitamin [...] propionate (FLONASE) 50 mcg/actuation nasal spray SMARTSI [place](s) Both Nares Daily Active gabapentin (NEURONTIN) 100 [...] Description 01/05/2025 11:30 AM EDT Office Visit [facility] Plastic Cosmetic Surgery [address] [place] [address] Biodiesel Production Technician: Shaunna Felipe MD Transgender (Primary Dx); Gender [...] st Contact Info) Description 06/27/2025 Hospital Encounter [facility] Operating Room [address] [place] [address] Shaunna Sosa MD [address] [place] [address] Scheduled Procedures Name Priority Associated Diagnoses Date/Ti [...] patient's age to complete this topic Insurance [facility] SHASHI GONCALVES [id number] Advance Directives Healthcare Agents on File Name Relationship Healthcare Agent Relationshi p Communication Jose Alves General Cleaner Next of Kin [phone] (Edda vaca) Care Teams Continuity Writer Relationship Specialty Start Date End Date Sudha Richardson [address] [place] [address] PCP - General Family Medicine 09/07/24
== END 2025-02-28 06:22 | disposition home or self-care (01) ==
LOC: CF 06:21
PROVIDERS: Visit Provider Anesthesiology
DX: M17.11 Unilateral primary osteoarthritis, right knee (principal)
CPT/HCPCS: 64450; J2003; J2795; Q9967

== ENCOUNTER 2025-02-28 12:51 | Outpatient (AMB) | payer OTHER, SELFPAY ==
[2025-02-28 12:59] VITALS: BP 116/78; PULSE 77; RESP 16; O2SAT 97
--- NOTE | 2025-02-28 12:59 | A.OFFVIS_ITS ---
Vital Signs 02/28/25 12:59 02/28/25 13:30 BP 116/78 118/72 Blood Pressure Location Lt brachial Lt brachial Position Sitting Sitting Respiration 16 16 Pulse 77 75 Pulse Source Pulse Oximeter Pulse Oximeter Pulse Oximetry (%) 97 98 Oxygen Delivery Method Room Air Room Air Intake Visit Reasons: RIGHT KNEE INFRAPATELLAR SAPHENOUS NERVE BLOCK Customer Experience Intern Required: No Allergies cockroach Allergy (Verified 02/28/25 13:00) Rash feathers Allergy (Verified 02/28/25 13:00) Rash Medication List - Last Reconciled 02/28/25 by Laisha Barton LPN aripiprazole 2 mg PO DAILY aripiprazole 5 mg PO DAILY cariprazine (Vraylar) 1.5 mg PO DAILY cariprazine (Vraylar) 3 mg PO DAILY cetirizine 10 mg PO DAILY cholecalciferol (vitamin D3) 25 mcg PO DAILY clindamycin phosphate 1% 1 appl topical BID diclofenac sodium 1% (Voltaren Arthritis Pain) 2 grams topical TID PRN doxycycline monohydrate 100 mg PO BID duloxetine 60 mg PO DAILY duloxetine 30 mg PO DAILY estradiol valerate mg IM gabapentin 300 mg (3 x 100 mg) PO BID 30 days ibuprofen 600 mg PO Q6H PRN lidocaine 5% 1 patch topical DAILY melatonin 5 mg PO .hs melatonin 5 mg PO BEDTIME multivitamin 1 tab PO DAILY naloxone 4 mg/actuation (Narcan) 4 mg intranasal Q2M PRN oxybutynin chloride ER 10 mg PO DAILY oxycodone-acetaminophen 5-325 mg (Percocet) 1 tab PO TID PRN 30 days polyethylene glycol 3350 17 grams PO DAILY PRN testosterone 0 mg topical testosterone 0 mg topical PFSH Medical History PTSD (post-traumatic stress disorder) Depression with anxiety Carpal tunnel syndrome, bilateral Status post gender reassignment surgery Breast implant in situ Chronic pain syndrome Spondylolysis, 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 Arthritis Surgical History History of breast implant removal Person who has undergone gender reassignment surgery Social History Alcohol intake: current Alcohol intake frequency: holidays/special occasions only Alcohol type: wine Patient Tobacco Use Status: Former Tobacco user Substance Use Type: Marijuana Current occupational status: disabled Current occupation: rt hand Physical Exam Vital Signs: Last Vital Signs Pulse 75 02/28/25 13:30 Resp 16 02/28/25 13:30 BP 118/72 02/28/25 13:30 Pulse Ox 98 02/28/25 13:30 Oxygen Delivery Method Room Air 02/28/25 13:30 Assessment & Plan Assessment & Plan (1) Osteoarthritis of right knee: Code(s): M17.11 - Unilateral primary osteoarthritis, right knee Category: Medical (2) Right knee pain: Code(s): M25.561 - Pain in right knee Category: Medical Plan Infrapatellar saphenous nerve block on the right. the patient was brought to the operating room after informed consent was explained to the patient were risks and benefits were explained. She was positioned supine on the operating table with a gel roll under her right knee. Time-out was performed delineating name and date of of the patient nature of the procedure allergies of the patient. The anterior lateral and medial surfaces of the knee and adjacent areas of the right thigh and right lower leg were prepped with ChloraPrep and draped with sterile self adhesive utility towels. After that the point of interest was delineated as the confluence of the metaphysis of the tibial bone on the medial side with diaphysis of this bone. The projection of the point of interest to the skin was injected with small amount of local anesthetic mixture of lidocaine 2% and ropivacaine 0.5% one-to-one. After that 22 gauge 3-1/2 inch needle was inserted through the skin wheal and advanced to were the point of interest under intermittent anterior posterior and lateral views. When tip of the needle gently contacted the bone the lateral views obtained and position of the needle was adjusted to be in the mid shaft of the tibial bone. After that injection of 2 cc of ropivacaine 0.5% was performed into the needle. The patient tolerated the procedure well needle was removed sterile Band-Aid was applied . She was taken outside of the operating room where she recovered uneventfully, she went home without immediate complications. Orders: Orders FL guidance in treatment room Today M17.11 - Unilateral primary osteoarthritis, right knee Coding Level of Care Code Procedure Only Diagnoses Osteoarthritis of right knee M17.11 Right knee pain M25.561
[2025-02-28 13:30] VITALS: BP 118/72; PULSE 75; RESP 16; O2SAT 98
--- OUTSIDE RECORDS SUMMARY | 2025-02-28 13:55 | XMS_ITS | Encounter Summary ---
Author Organization [employer] Address [address] [facility] 7[address] [place] [address] Care Team Providers Care Jawbone Puller Name Role Phone Sudha Richardson MD Primary Care Provider +1- [phone] Matthew Woods MD Unavailable Encounter Details Date Type Department Care Team (Late st Contact Info) Description 11/06/2023 Telephone [facility] MEDICINE [address] [place], [place] [phone] Sudha Richardson MD 230 [place], [place] [phone] Social History Tobacco Use Types Packs/Day Years [...] Description 03/21/2025 2:00 PM EDT Clinical Support [facility] DIABETES/NUTRITION [address] [place] [address] Roberta Mckeon, RD 230 [place] [address] 04/27/2025 9:45 AM EDT Office Visit [facility] MEDICINE [address] [place] [address] Sudha Richardson MD [address] [place] [address] documented as of this encounter Visit Diagnoses Not on filedocumented in this encounter Additional Health Concerns Assessment Noted Time PHQ-9 Depression Total Score: 0 12/26/19 23 2:59 PM EST documented as of this encounter Care Teams Jawbone Puller Relationship Specialty Start Date End Date Sudha Richardson MD [address] [place] [address] PCP - General Family Medicine 10/19/18 Matthew Woods MD [address] [place] [address] Drive [address] [place] [address] Pain Medicine 09/21/24 Stephanie Rice MD [address], [address] [place] [address] Plastic Surgery 12/22/24 documented as of this encounter
--- OUTSIDE RECORDS SUMMARY | 2025-02-28 13:55 | XMS_ITS | Clinical Summary ---
Author Organization [facility] Address [address] [place] [address] Care Team Providers Care Health Information Specialist Name Role Phone Juvencio Richardsonbryan Taylor Primary Care Provider [phone] Allergies No known active allergies Medications multivitamin [...] propionate (FLONASE) 50 mcg/actuation nasal spray SMARTSI Lamoni(s) Both Nares Daily Active gabapentin (NEURONTIN) 100 [...] Description 01/05/2025 11:30 AM EDT Office Visit [facility] Plastic Cosmetic Surgery [address] [place] [address] Manager Inside: Shaunna Felipe MD Transgender (Primary Dx); Gender [...] st Contact Info) Description 06/27/2025 Hospital Encounter [facility] Operating Room [address] [place] [address] Shaunna Sosa MD [address] [place] [address] Scheduled Procedures Name Priority Associated Diagnoses Date/Ti [...] patient's age to complete this topic Insurance [facility] SHASHI GONCALVES [id number] Advance Directives Healthcare Agents on File Name Relationship Healthcare Agent Relationshi p Communication Jose Alves Entry Level Sales Representative Next of Kin [phone] (Edda vaca) Care Teams Health Information Specialist Relationship Specialty Start Date End Date Sudha Richardson [address] [place] [address] PCP - General Family Medicine 09/07/24
--- OUTSIDE RECORDS SUMMARY | 2025-02-28 13:55 | XMS_ITS | Encounter Summary ---
Author Organization [employer] Address [address] [facility] [address] 7t [place] [address] Care Team Providers Care Copying Machine Mechanic Name Role Phone Sudha Richardson MD Primary Care Provider [phone]- [phone] Matthew Woods MD Unavailable Encounter Details Date Type Department Care Team (Late st Contact Info) Description 02/27/2025 Telephone [facility] WALK-IN CENTER 230 [place], [place] [phone] Kimber William MD 230 [place], [place] [phone] Social History Tobacco Use Types Packs/Day Years [...] encounter Miscellaneous Notes * Telephone Encounter - Hilda Cedillo RN - 02/27/2025 12:16 PM EDT TC placed to pt at [phone] regarding message below per Dr. Ramírez. No answer. Voice message left for pt to return call to [facility]. TC placed to pt at [phone] regarding message below per Dr. Ramírez. Pt verbalized understanding. No questions or concerns reported at time of call. Pt to F/U as needed. ----- Message from Kimber Alexander MD sent at 02/27/2025 12:16 PM EDT ----- Please let patient know her x-ray is normal thank you documented in this encounter Plan of Treatment Upcoming Encounters Date Type Department Care Team (Late st Contact Info) Description 03/21/2025 2:00 PM EDT Clinical Support [facility] DIABETES/NUTRITION [address] [place] [address] 230 [place] [address] 04/27/2025 9:45 AM EDT Office Visit [facility] MEDICINE 230 [place] [address] Sudha Richardson MD [address] [place] [address] documented as of this encounter Visit Diagnoses Not on filedocumented in this encounter Additional Health Concerns Assessment Noted Time PHQ-9 Depression Total Score: 24 024 9:39 AM EDT documented as of this encounter Care Teams Copying Machine Mechanic Relationship Specialty Start Date End Date Sudha Richardson MD 230 [place] [address] PCP - General Family Medicine 10/19/18 Matthew Woods MD [address] [place] [address] Drive [address] [place] [address] Pain Medicine 09/21/24 Stephanie Rice MD [address] [facility] 8th Floor, [address] [place] [address] Plastic Surgery 12/22/24 documented as of this encounter
--- OUTSIDE RECORDS SUMMARY | 2025-02-28 13:55 | XMS_ITS | Encounter Summary ---
Author Organization [employer] Address [address] [facility] [address] 7t [place] [address] Care Team Providers Care Hoe Worker Name Role Phone Sudha Richardson MD Primary Care Provider [phone]- [phone] Matthew Woods MD Unavailable Encounter Details Date Type Department Care Team (Late st Contact Info) Description 02/09/2023 Orders Only [facility] MEDICINE 230 [place], [place] [phone] Sudha Richardson MD 230 [place], [place] [phone] Social History Tobacco Use Types Packs/Day Years [...] Description 03/21/2025 2:00 PM EDT Clinical Support [facility] DIABETES/NUTRITION [address] [place] [address] Roberta Mckeon, CHARLA 230 [place] [address] 04/27/2025 9:45 AM EDT Office Visit [facility] MEDICINE 230 [place] [address] Sudha Richardson MD [address] [place] [address] documented as of this encounter Visit Diagnoses Not on filedocumented in this encounter Additional Health Concerns Assessment Noted Time PHQ-9 Depression Total Score: 0 12/26/19 23 2:59 PM EST documented as of this encounter Care Teams Hoe Worker Relationship Specialty Start Date End Date Sudha Richardson MD [address] [place] [address] PCP - General Family Medicine 10/19/18 Matthew Woods MD [address] [place] [address] Drive [address] [place] [address] Pain Medicine 09/21/24 Stephanie Rice MD [address] [place] [address] 8th Floor, [address] [place] [address] Plastic Surgery 12/22/24 documented as of this encounter
--- OUTSIDE RECORDS SUMMARY | 2025-02-28 13:55 | XMS_ITS | Encounter Summary ---
Author Organization [employer] Address [address] [facility] [address] 7t [place] [address] Care Team Providers Care Bar Tacker Sewing Machine Name Role Phone Sudha Richardson MD Primary Care Provider +1- [phone] Matthew Woods MD Unavailable Reason for Visit * Reason Onset Date Comments Error 01/05/2024 Encounter Details Date Type Department Care Team (Late st Contact Info) Description 01/05/2024 Telephone [facility] MEDICINE [address] [place], [place] [phone] Sudha Richardson MD 230 [place] [address] Error Social History Tobacco Use Types Packs/Day [...] Description 03/21/2025 2:00 PM EDT Clinical Support [facility] DIABETES/NUTRITION [address] [place] [address] [place] [address] 04/27/2025 9:45 AM EDT Office Visit [facility] MEDICINE [address] [place] [address] Sudha Richardson MD [address] [place] [address] documented as of this encounter Visit Diagnoses Not on filedocumented in this encounter Additional Health Concerns Assessment Noted Time PHQ-9 Depression Total Score: 0 12/26/19 23 2:59 PM EST documented as of this encounter Care Teams Bar Tacker Sewing Machine Relationship Specialty Start Date End Date Sudha Richardson MD [address] [place] [address] PCP - General Family Medicine 10/19/18 Matthew Woods MD [address] [place] [address] Pain Medicine 09/21/24 Stephanie Rice MD [address] [place] [address] 8th Floor, [address] [place] [address] Plastic Surgery 12/22/24 documented as of this encounter
--- OUTSIDE RECORDS SUMMARY | 2025-02-28 13:55 | XMS_ITS | Referral Summary ---
Author Organization [facility] Address [address] [place] [address] Care Team Providers Care Fisherman Helper Name Role Phone Sudha Richardson Primary Care Provider +1- [phone] Encounters Date Type Department Care Team Description 01/05/2025 11:30 AM EDT Office Visit [facility] Plastic Cosmetic Surgery [address] [place] [address] Turret Lathe Machinist: Shaunna Felipe MD Transgender (Primary Dx); Gender [...] propionate (FLONASE) 50 mcg/actuation nasal spray SMARTSI Clinton(s) Both Nares Daily Active gabapentin (NEURONTIN) 100 [...] st Contact Info) Description 06/27/2025 Hospital Encounter [facility] Operating Room [address] [place], [place] [phone] Shaunna Sosa MD [address] [place] [address] Scheduled Procedures Name Priority Associated Diagnoses Date/Ti me UNLISTED PROCEDURE, TRACHEA, BRONCHI Transgender Gender dysphoria [place] [address] [place] [address] [employer] Advance Directives Healthcare Agents on File Name Relationship Healthcare Agent Relationshi p Communication Jose Alves Storekeeper Helper Next of Kin [phone] (Edda vaca) Care Teams Fisherman Helper Relationship Specialty Start Date End Date Debra, Sudha Tayolr [address] [place] [address] PCP - General Family Medicine 09/07/24
--- OUTSIDE RECORDS SUMMARY | 2025-02-28 13:55 | XMS_ITS | Encounter Summary ---
Author Organization [employer] Address [address] [facility] [address] 7t [place] [address] Care Team Providers Care Maintenance Service Supervisor Name Role Phone Sudha Richardson MD Primary Care Provider +1- [phone] Matthew Woods MD Unavailable Encounter Details Date Type Department Care Team (Late st Contact Info) Description 08/31/2024 Orders Only [facility] MEDICINE 230 [place], [place] [phone] Sudha Richardson MD 230 [place], [place] [phone] Social History Tobacco Use Types Packs/Day Years [...] Description 03/21/2025 2:00 PM EDT Clinical Support [facility] DIABETES/NUTRITION [address] [place] [address] Roberta Mckoen, CHARLA 230 [place] [address] 04/27/2025 9:45 AM EDT Office Visit [facility] MEDICINE [address] [place] [address] Sudha Richardson MD [address] [place] [address] documented as of this encounter Visit Diagnoses Not on filedocumented in this encounter Additional Health Concerns Assessment Noted Time PHQ-9 Depression Total Score: 24 024 9:39 AM EDT documented as of this encounter Care Teams Maintenance Service Supervisor Relationship Specialty Start Date End Date Sudha Richardson MD [address] [place] [address] PCP - General Family Medicine 10/19/18 Matthew Woods MD [address] [place] [address] Pain Medicine 09/21/24 Stephanie Rice MD [address] [facility] 8th Floor, [address] [place] [address] Plastic Surgery 12/22/24 documented as of this encounter
--- OUTSIDE RECORDS SUMMARY | 2025-02-28 13:55 | XMS_ITS | Encounter Summary ---
Author Organization [employer] Address [address] [facility] [address] 7t [place] [address] Care Team Providers Care Roving Or Yarn Color Checker Name Role Phone Sudha Richardson MD Primary Care Provider +1- [phone] Matthew Woods MD Unavailable Reason for Visit * Reason Onset Date Comments triage 02/04/2023 Encounter Details Date Type Department Care Team (Late st Contact Info) Description 02/04/[address] [facility] MEDICINE 230 [place], [place] [phone] Sudha Richardson MD 230 [place], [place] [phone] triage Social History Tobacco Use Types Packs/Day [...] Richardson. Pt is advised to come to [facility] for care for nausea and vomiting and [...] 2:00 PM EDT Clinical Support [facility] DIABETES/NUTRITION [address] [place] [address] [place] [address] 04/27/2025 9:45 AM EDT Office Visit [facility] MEDICINE 230 [place] [address] Sudha Richardson MD 230 [place] [address] documented as of this encounter Visit Diagnoses Not on filedocumented in this encounter Additional Health Concerns Assessment Noted Time PHQ-9 Depression Total Score: 0 12/26/19 23 2:59 PM EST documented as of this encounter Care Teams Roving Or Yarn Color Checker Relationship Specialty Start Date End Date Sudha Richardson MD 230 [place] [address] PCP - General Family Medicine 10/19/18 Matthew Woods MD [address] [place] [address] Drive [address] [place] [address] Pain Medicine 09/21/24 Stephanie Rice MD [address] [place] [address] Floor, [address] [place] [address] Plastic Surgery 12/22/24 documented as of this encounter
--- OUTSIDE RECORDS SUMMARY | 2025-02-28 13:55 | XMS_ITS | Encounter Summary ---
Author Organization [employer] Address [address] [facility] [address] 7t [place] [address] Care Team Providers Care Public Area Supervisor Name Role Phone Sudha Richardson MD Primary Care Provider +1- [phone] Matthew Woods MD Unavailable Reason for Visit * Reason Comments Med Refill Encounter Details Date Type Department Care Team (Late st Contact Info) Description 01/06/2024 Refill [facility] MEDICINE 230 [place], [place] [phone] Atiya Alegria MD 230 [place] [address] Urinary incontinence, unspecified type Social History Tobacco [...] Description 03/21/2025 2:00 PM EDT Clinical Support [facility] DIABETES/NUTRITION [address] [place] [address] [place] [address] 04/27/2025 9:45 AM EDT Office Visit [facility] MEDICINE [address] [place] [address] Sudha Richardson MD [address] [place] [address] documented as of this encounter Visit Diagnoses Diagnosis Urinary incontinence, unspecified type documented in this encounter Additional Health Concerns Assessment Noted Time PHQ-9 Depression Total Score: 0 12/26/19 23 2:59 PM EST documented as of this encounter Care Teams Public Area Supervisor Relationship Specialty Start Date End Date Sudha Richardson MD [address] [place] [address] PCP - General Family Medicine 10/19/18 Matthew Woods MD [address] [place] [address] Pain Medicine 09/21/24 Stephanie Rice MD [address] [place] [address] 8th Floor, [address] [place] [address] Plastic Surgery 12/22/24 documented as of this encounter
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
--- OUTSIDE RECORDS SUMMARY | 2025-02-28 13:55 | XMS_ITS | Encounter Summary ---
Author Organization [employer] Address 75 [facility] 7t [place] [address] Care Team Providers Care Monitor Tech Name Role Phone Sudha Richardson MD Primary Care Provider +1- [phone] Matthew Woods MD Unavailable Reason for Visit * Reason Onset Date Comments Durable Medical Equipment 05/20/2023 Encounter Details Date Type Department Care Team (Late st Contact Info) Description 05/20/2023 Telephone [facility] MEDICINE [address] [place], [place] [phone] Sudha Richardson MD 230 [place], [place] [phone] Durable Medical Equipment Social History Tobacco Use [...] Clinical Support [facility] DIABETES/NUTRITION [address] [place] [address] [place] [address] 04/27/2025 9:45 AM EDT Office Visit [facility] MEDICINE [address] [place] [address] Sudha Richardson MD [address] [place] [address] documented as of this encounter Visit Diagnoses Not on filedocumented in this encounter Additional Health Concerns Assessment Noted Time PHQ-9 Depression Total Score: 0 12/26/19 23 2:59 PM EST documented as of this encounter Care Teams Monitor Tech Relationship Specialty Start Date End Date Sudha Richardson MD [address] [place] [address] PCP - General Family Medicine 10/19/18 Matthew Woods MD [address] [place] [address] Drive [address] [place] [address] Pain Medicine 09/21/24 Stephanie Rice MD [address] [place] [address] Floor, [address] [place] [address] Plastic Surgery 12/22/24 documented as of this encounter
--- OUTSIDE RECORDS SUMMARY | 2025-02-28 13:55 | XMS_ITS | Encounter Summary ---
Author Organization [employer] Address [address] [facility] [address] 7t [place] [address] Care Team Providers Care Swiss Type Screw Machine Operator Name Role Phone Sudha Richardson MD Primary Care Provider +1- [phone] Matthew Woods MD Unavailable Encounter Details Date Type Department Care Team (Late st Contact Info) Description 04/22/2023 Orders Only [facility] MEDICINE 230 [place], [place] [phone] Sudha Richardson MD 230 [place], [place] [phone] Gender identity disorder of adulthood (Primary Dx) [...] 2:00 PM EDT Clinical Support [facility] DIABETES/NUTRITION [address] [place] [address] Roberta Mckeon, CHARLA 230 [place] [address] 04/27/2025 9:45 AM EDT Office Visit [facility] MEDICINE [address] [place] [address] Sudha Richardson MD [address] [place] [address] Scheduled Orders Name Type Priority Associated Diagnoses [...] documented as of this encounter Care Teams Swiss Type Screw Machine Operator Relationship Specialty Start Date End Date Sudha Richardson MD [address] [place] [address] PCP - General Family Medicine 10/19/18 Matthew Woods MD [address] [place] [address] Drive [address] [place] [address] Pain Medicine 09/21/24 Stephanie Rice MD 5 [facility] 8th Floor, [address] [place] [address] Plastic Surgery 12/22/24 documented as of this encounter
--- OUTSIDE RECORDS SUMMARY | 2025-02-28 13:55 | XMS_ITS | Encounter Summary ---
Author Organization [employer] Address [address] [facility] [address] 7t [place] [address] Care Team Providers Care Women'S Apparel Salesperson Name Role Phone Sudha Richardson MD Primary Care Provider +1- [phone] Matthew Woods MD Unavailable Encounter Details Date Type Department Care Team (Late st Contact Info) Description 05/07/2023 Orders Only [facility] MEDICINE 230 [place], [place] [phone] Sudha Richardson MD 230 [place], [place] [phone] Gender dysphoria in adult Social History Tobacco [...] Description 03/21/2025 2:00 PM EDT Clinical Support [facility] DIABETES/NUTRITION [address] [place] [address] Roberta Mckeon, CHARLA 230 [place] [address] 04/27/2025 9:45 AM EDT Office Visit [facility] MEDICINE [address] [place] [address] Sudha Richardson MD [address] [place] [address] [phone] documented as of this encounter Visit Diagnoses Diagnosis Gender dysphoria in adult documented in this encounter Additional Health Concerns Assessment Noted Time PHQ-9 Depression Total Score: 0 12/26/19 23 2:59 PM EST documented as of this encounter Care Teams Women'S Apparel Salesperson Relationship Specialty Start Date End Date Sudha Richardson MD [address] [place] [address] PCP - General Family Medicine 10/19/18 Matthew Woods MD [address] [place] [address] Drive [address] [place] [address] Pain Medicine 09/21/24 Stephanie Rice MD 5 [facility] 8th Floor, [address] [place] [address] Plastic Surgery 12/22/24 documented as of this encounter
--- OUTSIDE RECORDS SUMMARY | 2025-02-28 13:56 | XMS_ITS | Encounter Summary ---
Author Organization [employer] Address 75 [facility] 7t [place] [address] Care Team Providers Care Population Geneticist Name Role Phone Sudha Richardson MD Primary Care Provider +1- [phone] Matthew Woods MD Unavailable Encounter Details Date Type Department Care Team (Late Contact Info) Description 11/17/2022 Orders Only [facility] MEDICINE 230 [place] [address] Grabiel Sanders MD [address] [place], [place] [phone] Social History Tobacco Use Types Packs/Day Years [...] Upcoming Encounters Date Type Department Care Team ([facility] Contact Info) Description 03/21/2025 2:00 PM EDT Clinical Support [facility] DIABETES/NUTRITION [address] [place] [address] [place] [address] 04/27/2025 9:45 AM EDT Office Visit [facility] MEDICINE [address] [place] [address] Sudha Richardson MD [address] [place] [address] documented as of this encounter Procedures Procedure Name Priority Date/Time Associated Diagnosis Comments XR CHEST 2 VIEWS Routine 11/27/2022 3:16 PM EST documented in this encounter Results * XR Chest 2 Views (11/27/2022 3:16 PM EST) Anatomical Region Laterality Modality Chest Radiographic Kym ging 11/27/2022 3:16 PM EST Narrative 12/03/2022 11:47 AM EST ? [facility] ?[address] ?[place] [address] ?XRay Report ? Signed ? Patient: Faraz Ruth,Cherri ?MR ?? #: [id number] ? : 1985 ?Acct:[id number] ? Age/Sex: 37 / F ?ADM Date: 11/27/22 ? Loc: HO.XRAY ? Attending Dr: Grabiel Sanders MD ? Ordering Physician: Grabiel Sanders MD ?? Date of Service: 11/27/22 ?? Procedure(s): XR chest 2V ?? Accession Number(s): [id number] ? cc: Grabiel Sanders MD ? EXAMINATION: [...] 1144 ? DD/ 1516 ? TD/TT: ? Structured Cabling Technician: LAVELLE ? Procedure Note Sanketjose manuelluisabdias, Image - 12/03/2022 [facility] [address] [place] [address] XRay Report Signed Patient: Cherri BoothMR #: [id number] : 1985Acct:[id number] Age/Sex: 37 / FADM Date: 11/27/22 Loc: DANIELAY Attending Dr: Grabiel Sanders MD Ordering Physician: Grabiel Sanders MD Date of Service: 11/27/22 Procedure(s): XR chest 2V Accession Number(s): [id number] cc: Grabiel Sanders MD EXAMINATION: XR CHEST [...] in OV> 12/03/22 1144 DD/ 1516 TD/TT: Structured Cabling Technician: LAVELLE [facility] External Provider IMG XR PROCEDURES Edited Result - Final documented in this encounter Visit Diagnoses Not on filedocumented in this encounter Care Teams Population Geneticist Relationship Specialty Start Date End Date Sudha Richardson MD 230 [place] [address] PCP - General Family Medicine 10/19/18 Matthew Woods MD [address] [facility] [address] [place] [address] Pain Medicine 09/21/24 Stephanie Rice MD [address] [place] [address] 8th Floor, [address] [place] [address] Plastic Surgery 12/22/24 documented as of this encounter
--- OUTSIDE RECORDS SUMMARY | 2025-02-28 13:56 | XMS_ITS | Encounter Summary ---
Author Organization [employer] Address [address] [facility] [address] 7t [place] [address] Care Team Providers Care Web Operations Administrator Name Role Phone Sudha Richardson MD Primary Care Provider +1- [phone] Matthew Woods MD Unavailable Reason for Visit * Reason Comments Med Refill Encounter Details Date Type Department Care Team (Late st Contact Info) Description 01/23/2023 Refill [facility] MEDICINE [address] [place], [place] [phone] Sudha Richardson MD 230 [place], [place] [phone] Gender identity disorder of adulthood Social History [...] Description 03/21/2025 2:00 PM EDT Clinical Support [facility] DIABETES/NUTRITION [address] [place] [address] [place] [address] 04/27/2025 9:45 AM EDT Office Visit [facility] MEDICINE [address] [place] [address] Sudha Richardson MD [address] [place] [address] documented as of this encounter Visit Diagnoses Diagnosis 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 documented in this encounter Additional Health Concerns Assessment Noted Time PHQ-9 Depression Total Score: 0 12/26/19 23 2:59 PM EST documented as of this encounter Care Teams Web Operations Administrator Relationship Specialty Start Date End Date Sudha Richardson MD [address] [place] [address] PCP - General Family Medicine 10/19/18 Matthew Woods MD [address] [place] [address] Drive [address] [place] [address] Pain Medicine 09/21/24 Stephanie Rice MD [address] [place] [address] 8th Floor, [address] [place] [address] Plastic Surgery 12/22/24 documented as of this encounter
--- OUTSIDE RECORDS SUMMARY | 2025-02-28 13:56 | XMS_ITS | Encounter Summary ---
Author Organization [employer] Address [address] [facility] [address] 7t [place] [address] Care Team Providers Care Health Program Director Name Role Phone Sudha Richardson MD Primary Care Provider +1- [phone] Matthew Woods MD Unavailable Reason for Visit * Reason Onset Date Comments Referral 12/11/2022 Encounter Details Date Type Department Care Team (Late st Contact Info) Description 12/11/2022 Telephone [facility] MEDICINE 230 [place], [place] [phone] Sudha Richardson MD 230 [place], [place] [phone] Referral Social History Tobacco Use Types Packs/Day [...] Tc from pt requesting a referral to [facility] PT for an 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 Needs a written referral with details. Pt claims that without it, no process can be down. [facility] PT number is [phone] press number 2. Pt states that this is through [facility] coordinator for pt. Please contact pt [phone] documented in this encounter Plan of Treatment Upcoming Encounters Date Type Department Care Team (Late st Contact Info) Description 03/21/2025 2:00 PM EDT Clinical Support [facility] DIABETES/NUTRITION [address] [place] [address] 230 [place] [address] 04/27/2025 9:45 AM EDT Office Visit [facility] MEDICINE [address] [place] [address] Sudha Richardson MD 230 [place] [address] documented as of this encounter Visit Diagnoses Not on filedocumented in this encounter Care Teams Health Program Director Relationship Specialty Start Date End Date Sudha Richardson MD 230 [place] [address] PCP - General Family Medicine 10/19/18 Matthew Woods MD [address] [place] [address] Pain Medicine 09/21/24 Stephanie Rice MD [address] [facility] 8th Floor, [address] [place] [address] Plastic Surgery 12/22/24 documented as of this encounter
--- OUTSIDE RECORDS SUMMARY | 2025-02-28 13:56 | XMS_ITS | Encounter Summary ---
Author Organization [employer] Address [address] [facility] [address] 7t [place] [address] Care Team Providers Care Door Assembler Name Role Phone Sudha Richardson MD Primary Care Provider +1- [phone] Matthew Woods MD Unavailable Reason for Visit * Reason Comments Med Refill Encounter Details Date Type Department Care Team (Late st Contact Info) Description 03/26/2024 Refill [facility] MEDICINE 230 [place], [place] [phone] Sudha Richardson MD 230 [place], [place] [phone] Urinary incontinence, unspecified type Social History Tobacco [...] Description 03/21/2025 2:00 PM EDT Clinical Support [facility] DIABETES/NUTRITION [address] [place] [address] 230 [place] [address] 04/27/2025 9:45 AM EDT Office Visit [facility] MEDICINE [address] [place] [address] Sudha Richardson MD 230 [place] [address] documented as of this encounter Visit Diagnoses Diagnosis Urinary incontinence, unspecified type documented in this encounter Additional Health Concerns Assessment Noted Time PHQ-9 Depression Total Score: 0 12/26/19 23 2:59 PM EST documented as of this encounter Care Teams Door Assembler Relationship Specialty Start Date End Date Sudha Richardson MD 230 [place] [address] PCP - General Family Medicine 10/19/18 Matthew Woods MD [address] [place] [address] Pain Medicine 09/21/24 Stephanie Rice MD [address] [place] [address] 8th Floor, [address] [place] [address] Plastic Surgery 12/22/24 documented as of this encounter
--- OUTSIDE RECORDS SUMMARY | 2025-02-28 13:56 | XMS_ITS | Encounter Summary ---
Author Organization [employer] Address [address] [facility] [address] 7t [place] [address] Care Team Providers Care Investigation Specialist Name Role Phone Sudha Richardson MD Primary Care Provider +1- [phone] Matthew Woods MD Unavailable Encounter Details Date [...] Description 03/21/2025 2:00 PM EDT Clinical Support [facility] DIABETES/NUTRITION [address] [place] [address] [place] [address] 04/27/2025 9:45 AM EDT Office Visit [facility] MEDICINE [address] [place] [address] Sudha Richardson MD [address] [place] [address] documented as of this encounter Visit Diagnoses Not on filedocumented in this encounter Additional Health Concerns Assessment Noted Time PHQ-9 Depression Total Score: 24 024 9:39 AM EDT documented as of this encounter Care Teams Investigation Specialist Relationship Specialty Start Date End Date Sudha Richardson MD [address] [place] [address] PCP - General Family Medicine 10/19/18 Matthew Woods MD [address] [place] [address] Pain Medicine 09/21/24 Stephanie Rice MD 5 [facility] 8th Floor, [address] [place] [address] Plastic Surgery 12/22/24 documented as of this encounter
== END 2025-02-28 13:32 | disposition home or self-care (01) ==
LOC: HO.PMCPRC 12:51
PROVIDERS: Visit Provider Anesthesiology
DX: M17.11 Unilateral primary osteoarthritis, right knee (principal); M25.561 Pain in right knee
CPT/HCPCS: 64450

== ENCOUNTER 2025-03-24 13:44 | Outpatient (AMB) | payer OTHER, SELFPAY ==
--- NOTE | 2025-03-24 13:45 | A.OFFVIS_ITS ---
Vital Signs 03/24/25 13:46 Height 5 ft 6 in Weight 190 lb BMI 30.7 BP 116/73 Blood Pressure Location Lt brachial Position Sitting Respiration 16 Pulse 93 Pulse Source Pulse Oximeter Temp 99 F Intake Visit Reasons: RIGHT KNEE INFRAPATELLAR SAPHENOUS NERVE BLOCK D[employer] Supplies Sales Representative Required: No Allergies cockroach Allergy (Verified 03/24/25 13:50) Rash feathers Allergy (Verified 03/24/25 13:50) Rash HPI Comments Details: The patient presents to the office with persistent right knee pain following a r ight infrapatellar saphenous nerve block performed three weeks prior. Initially, post-procedure, the patient experienced significant relief with pain reduced from a 7 or 8 out of 10 to approximately a 2 or 3. The relief was short-lived as the pain eventually returned. The patient reports pre-procedure pain exacerbated by weight-bearing activities. Post-procedure, the transient relief allowed for greater mobility, which may have contributed to an increase in pain once the anesthesia wore off. The patient uses gabapentin and oxycodone for pain management, although she is wary of interactions when consuming alcohol. She experiences anxiety during medical procedures, which may contribute to episodic dizziness and headaches after interventions. Uncertainty regarding the effectiveness of the block and potential future treatments, such as surgery, contributes to the patient's stress and confusion about her treatment plan. - Onset: Chronic, worsened significantly after nerve block wore off - Quality: Aching, sometimes sharp - Location: Right knee, radiating to hip and back - Severity: Daily average pre-block 7-8/10; immediate post-block relief to 2- 3/10, then returned - Timing: Persistent, fluctuates with activity - Exacerbating Factors: Weight-bearing, increased physical activity post-block - Relieving Factors: Initial nerve block, medications (gabapentin, oxycodone), avoidant of excessive activity - Interference: Walking, standing, certain activities of daily living - Affect: Significant frustration and anxiety related to persistent pain and medical procedures - Analgesia: Gabapentin, Oxycodone; post-block relief short-lived - Adverse Effects: Dizziness and headaches likely related to anxiety and medication interactions - Activities of Daily Living: Impacts mobility, occasionally requires use of a cane, affects ability to manage household and daily tasks - Aberrant Drug Related Behaviors: None reported explicitly, cautious with alcohol interaction [facility] Medical History PTSD (post-traumatic stress disorder) Depression with anxiety Carpal tunnel syndrome, bilateral Status post gender reassignment surgery Breast implant in situ Chronic pain syndrome Spondylolysis, 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 Arthritis Surgical History History of breast implant removal Person who has undergone gender reassignment surgery Social History Alcohol intake: current Alcohol intake frequency: holidays/special occasions only Alcohol type: wine Patient Tobacco Use Status: Former Tobacco user Substance Use Type: Marijuana Current occupational status: disabled Current occupation: rt hand Review of Systems Const Details: - Musculoskeletal: Reports chronic knee pain, as well as hip and back pain - Neurological: Denies persistent headaches, reports transient dizziness associated with medication and anxiety - Psychological: Reports anxiety related to medical procedures Physical Exam Vital Signs: Last Vital Signs Temp 99 F 03/24/25 13:46 Pulse 93 03/24/25 13:46 Resp 16 03/24/25 13:46 BP 116/73 03/24/25 13:46 BMI result Body Mass Index 30.7 General: awake, alert, oriented. Answers questions appropriately. Fully engaged in examination. Skin: warm, dry, intact HEENT: Normocephalic. Hearing intact. Cardiac: External chest normal in appearance. Respiratory: No cough, audible wheezing or stridor. Abdomen: without gross distension. MS: No obvious swelling or deformities. Neurological: Oriented to person, place, time and situation. Thought process intact. Psychiatric: Appropriate mood and affect. Good judgment and insight. Results Reviewed Results Reviewed: XR BILATERAL KNEES 12/14/23 CLINICAL INFORMATION: Pain in right knee. COMPARISON: April 02, 2022. FINDINGS: LEFT KNEE: Mild narrowing of the medial and patellofemoral compartments. Trace joint effusion. Redemonstration of separate fragment along the lateral upper aspect of the patella, similar to exam of 04/02/2022, possibly related to prior trauma versus normal variant, bipartite patella. RIGHT KNEE: Mild narrowing of the medial and patellofemoral compartments. Trace joint effusion. IMPRESSION: 1. Mild degenerative changes in the bilateral knees. 2. Redemonstration of separate fragment along the lateral upper aspect of the left patella, similar to exam of 04/02/2022, possibly related to prior trauma versus normal variant, bipartite patella. Assessment & Plan Assessment & Plan (1) Osteoarthritis of right knee: Code(s): M17.11 - Unilateral primary osteoarthritis, right knee Category: Medical (2) Right knee pain: Code(s): M25.561 - Pain in right knee Category: Medical Plan After discussing the patient's knee pain, I will document the positive results of the diagnostic injection. Noting the temporary relief, it is essential to address the nature of her pain and seek potential alternative or complementary treatment methods. Patient counseling should include planning for addressing her anxiety during treatments to ensure smoother future procedures. Further evaluation and thoughtful reassessment of her current pain management strategy will be undertaken. During the visit, we reviewed the results of the recent diagnostic injection, which provided temporary relief from her knee pain. We discussed the purpose of this diagnostic approach to determine viability for more substantial intervent ions. The patient expressed anxiety related to medical procedures, which I will factor into future planning. The short-term relief indicated diagnostic value, but I acknowledged her frustration with ongoing pain challenges. We discussed that while surgery is a consideration for some, it is not the immediate next step here. We will explore other pain management strategies and interventions to address her chronic pain more effectively while maintaining current medications. The patient will follow up with her primary physician, Dr. Woods, to discuss potential next steps and long-term management options. Patient was informed and verbally consented to the use of an ambient scribe for clinic note documentation during this visit. Patient Instructions: - Continue current medications as prescribed, being mindful of alcohol interactions - Return for follow-up as scheduled to evaluate pain management progress - Notify healthcare provider of any significant changes or worsening of symptoms - Avoid activities that excessively worsen knee pain, consider using a cane for support - Discuss anxiety and procedural concerns at future appointments for better management strategies Coding Level of Care Code Est Pt Level 3 (02660) Complex EM visit Add On G2211 Diagnoses Osteoarthritis of right knee M17.11 Right knee pain M25.561
[2025-03-24 13:46] VITALS: BP 116/73; PULSE 93; RESP 16; TEMP 37.2; BMI 30.7
--- OUTSIDE RECORDS SUMMARY | 2025-03-24 13:46 | XMS_ITS | Encounter Summary ---
Author Organization [employer] Address [address] [facility] 7t [place] [address] Care Team Providers Care Critical Care Technician Name Role Phone Sudha Richardson MD Primary Care Provider +1- [phone] Matthew Woods MD Unavailable Reason for Visit * Reason Onset Date Comments Error 01/05/2024 Encounter Details Date Type Department Care Team (Late st Contact Info) Description 01/05/2024 Telephone [facility] [address] [place], [place] [phone] Sudha Richardson MD 230 [place], [place] [phone] Error Social History Tobacco Use Types Packs/Day [...] Care Team (Late st Contact Info) Description 04/27/2025 9:45 AM EDT Office Visit [facility] [address] [place] [address] Sudha Richardson MD 230 [place] [address] 05/02/2025 1:00 PM EDT Clinical Support [facility] [address] [place] [address] Roberta Mckeon, RD 230 [place] [address] documented as of this encounter Visit Diagnoses Not on filedocumented in this encounter Additional Health Concerns Assessment Noted Time PHQ-9 Depression Total Score: 0 12/26/19 23 2:59 PM EST documented as of this encounter Care Teams Critical Care Technician Relationship Specialty Start Date End Date Sudha Richardson MD [address] [place] [address] PCP - General Family Medicine 10/19/18 Matthew Woods MD [address] [place] [address] Pain Medicine 09/21/24 Stephanie Rice MD [address] [place] [address] 8th Floor, [address] [place] [address] Plastic Surgery 12/22/24 documented as of this encounter
== END 2025-03-24 14:25 | disposition home or self-care (01) ==
LOC: HO.PMC 13:44
PROVIDERS: PCP Family Medicine; Visit Provider Registered Nurse Emergency
DX: M17.11 Unilateral primary osteoarthritis, right knee (principal); M25.561 Pain in right knee
CPT/HCPCS: 99213; G2211

== ENCOUNTER → 2025-03-24 13:44 | Outpatient (BNVA) | payer OTHER, SELFPAY | PROVIDERS: PCP Family Medicine; Visit Provider Registered Nurse Emergency | DX: M17.11 Unilateral primary osteoarthritis, right knee (principal); M25.561 Pain in right knee | CPT/HCPCS: 99212 ==

== ENCOUNTER 2025-04-13 13:30 | Outpatient (AMB) | payer OTHER, SELFPAY ==
--- NOTE | 2025-04-13 13:38 | A.OFFVIS_ITS ---
Vital Signs 04/13/25 13:40 Height 5 ft 6 in Weight 190 lb BMI 30.7 BP 130/83 Blood Pressure Location Lt brachial Position Sitting Respiration 20 Pulse 95 Pulse Source Pulse Oximeter Pulse Oximetry (%) 100 Oxygen Delivery Method Room Air Intake Visit Reasons: Pill Count Intake Note: pt states she last took her oxycodone aceteminophen 5-325 last @ 04/13/25 @8am [facility] said she should have 48 pills, presented with 57 Traffic Reporter Required: No Allergies cockroach Allergy (Verified 04/13/25 13:38) Rash feathers Allergy (Verified 04/13/25 13:38) Rash HPI Comments Details: Arle[facility] is my office today for the follow-up and pill count. The pill count is correct, she supposed to have 48 pills in her possession she brought 57 pills in her possession. This demonstrates responsible attitude to were the opioid medications. She denies side effects of the opioid medications, she denies constipation. The patient will be seen in 1 month. I will send prescription for this patient to the pharmacy on 04/30/2025. Prior: The patient presents to the office with persistent right knee pain following a right infrapatellar saphenous nerve block performed three weeks prior. Initially, post-procedure, the patient experienced significant relief with pain reduced from a 7 or 8 out of 10 to approximately a 2 or 3. The relief was short- lived as the pain eventually returned. The patient reports pre-procedure pain exacerbated by weight-bearing activities. Post-procedure, the transient relief allowed for greater mobility, which may have contributed to an increase in pain once the anesthesia wore off. The patient uses gabapentin and oxycodone for pain management, although she is wary of interactions when consuming alcohol. - Onset: Chronic, worsened significantly after nerve block wore off - Quality: Aching, sometimes sharp - Location: Right knee, radiating to hip and back - Severity: Daily average pre-block 7-8/10; immediate post-block relief to 2- 3/10, then returned - Timing: Persistent, fluctuates with activity - Exacerbating Factors: Weight-bearing, increased physical activity post-block - Relieving Factors: Initial nerve block, medications (gabapentin, oxycodone), avoidant of excessive activity - Interference: Walking, standing, certain activities of daily living - Affect: Significant frustration and anxiety related to persistent pain and medical procedures - Analgesia: Gabapentin, Oxycodone; post-block relief short-lived - Adverse Effects: Dizziness and headaches likely related to anxiety and medication interactions - Activities of Daily Living: Impacts mobility, occasionally requires use of a cane, affects ability to manage household and daily tasks - Aberrant Drug Related Behaviors: None reported explicitly, cautious with alcohol interaction PFSH Medical History PTSD (post-traumatic stress disorder) Depression with anxiety Carpal tunnel syndrome, bilateral Status post gender reassignment surgery Breast implant in situ Chronic pain syndrome Spondylolysis, 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 Arthritis Surgical History History of breast implant removal Person who has undergone gender reassignment surgery Social History Alcohol intake: current Alcohol intake frequency: holidays/special occasions only Alcohol type: wine Patient Tobacco Use Status: Former Tobacco user Substance Use Type: Marijuana Current occupational status: disabled Current occupation: rt hand Review of Systems Const All systems reviewed & are unremarkable except as noted in HPI and below Physical Exam Vital Signs: Last Vital Signs Pulse 95 04/13/25 13:40 Resp 20 04/13/25 13:40 BP 130/83 04/13/25 13:40 Pulse Ox 100 04/13/25 13:40 Oxygen Delivery Method Room Air 04/13/25 13:40 BMI result Body Mass Index 30.7 General: Appears afebrile. Alert and oriented. Mood and affect appropriate. Follows and participates in conversation appropriately. Respiratory effort is unlabored. No cough. Able to transition from sit to stand unassisted. Uses cane with ambulation. Ambulates with bilaterally normal heel strike and toe off. General: Yes no CVA tenderness Back/Spine/Pelvis Back: no CVA tenderness Thoracic/Lumbar Spine: thoracic and lumbar spine normal to inspection Extrem General: Yes capillary refill normal, Yes no clubbing, cyanosis or edema and Yes no calf tenderness Psych Appearance: grossly normal Speech and movement: Normal speech and movement present and Pressured speech present Affect: Sad affect present and Hostile affect present Attitude: cooperative Thought process: Normal thought process present and Circumstantial thought process present Thought content: Normal thought content present, suicidality (none) and no hallucinations Insight: Good insight present (Psych) Judgement: Good judgement present (Psych) Assessment & Plan Assessment & Plan (1) Osteoarthritis of right knee: Code(s): M17.11 - Unilateral primary osteoarthritis, right knee Category: Medical (2) Right knee pain: Code(s): M25.561 - Pain in right knee Category: Medical Plan Her pill count is correct today she has excess of 9 pills. She will be scheduled for the appointment with me in 1 month. The medications will be refilled on 04/30/2025. Medications: Refilled oxycodone-acetaminophen 5-325 mg (Percocet) 1 tab PO TID PRN 90 tabs 0RF severe pain (scale score 7-10) 30 days G89.4 - Chronic pain syndrome, M43.06 - Spondylolysis, lumbar region, M46.1 - Sacroiliitis, not elsewhere classified Coding Level of Care Code Est Pt Level 3 (27349) Diagnoses Osteoarthritis of right knee M17.11 Right knee pain M25.561
[2025-04-13 13:40] VITALS: BP 130/83; PULSE 95; RESP 20; O2SAT 100; BMI 30.7
--- OUTSIDE RECORDS SUMMARY | 2025-04-13 16:18 | XMS_ITS | Encounter Summary ---
Author Organization [employer] Address [address] [facility] 7t [place] [address] Care Team Providers Care Cephalometric Analyst Name Role Phone Sudha Richardson MD Primary Care Provider +1- [phone] Matthew Woods MD Unavailable Reason for Visit * Reason Onset Date Comments Error 01/05/2024 Encounter Details Date Type Department Care Team (Late st Contact Info) Description 01/05/2024 Telephone [facility] [address] [place], [place] [phone] Sudha Richardson MD 230 [place], [place] [phone] Error Social History Tobacco Use Types Packs/Day [...] Description 04/27/2025 9:45 AM EDT Office Visit [facility] [address] [place] [address] Sudha Richardson MD 230 [place] [address] 05/02/2025 1:00 PM EDT Clinical Support [facility] DIABETES/NUTRITION [address] [place] [address] Roberta Mckeon, RD 230 [place] [address] documented as of this encounter Visit Diagnoses Not on filedocumented in this encounter Additional Health Concerns Assessment Noted Time PHQ-9 Depression Total Score: 0 12/26/19 23 2:59 PM EST documented as of this encounter Care Teams Cephalometric Analyst Relationship Specialty Start Date End Date Sudha Richardson MD [address] [place] [address] PCP - General Family Medicine 10/19/18 Matthew Woods MD [address] [place] [address] Pain Medicine 09/21/24 Stephanie Rice MD [address] [place] [address] 8th Floor, [address] [place] [address] Plastic Surgery 12/22/24 documented as of this encounter
== END 2025-04-13 14:09 | disposition home or self-care (01) ==
LOC: HO.PMC 13:30
PROVIDERS: PCP Family Medicine; Visit Provider Anesthesiology
DX: M17.11 Unilateral primary osteoarthritis, right knee (principal); M25.561 Pain in right knee; Z79.891 Long term (current) use of opiate analgesic
CPT/HCPCS: 99213

== ENCOUNTER → 2025-04-13 13:30 | Outpatient (BNVA) | payer OTHER, SELFPAY | PROVIDERS: PCP Family Medicine; Visit Provider Anesthesiology | DX: M17.11 Unilateral primary osteoarthritis, right knee (principal); M25.561 Pain in right knee | CPT/HCPCS: 99212 ==

== ENCOUNTER 2025-04-27 10:38 | Outpatient (REF) | payer OTHER, SELFPAY ==
--- OUTSIDE RECORDS SUMMARY | 2025-04-27 11:18 | XMS_ITS | Referral Summary ---
Author Organization [facility] Address [address] [place] [address] Care Team Providers Care Clerical Clerk Name Role Phone DebraJuvencioSudha J Primary Care Provider +- [phone] Allergies No known active allergies Medications multivitamin [...] propionate (FLONASE) 50 mcg/actuation nasal spray SMARTSI [place](s) Both Nares Daily Active gabapentin (NEURONTIN) 100 [...] st Contact Info) Description 06/27/2025 Hospital Encounter [facility] Operating Room [address] [place] [address] Shaunna Sosa MD [address] [place] [address] Scheduled Procedures Name Priority Associated Diagnoses Date/Ti me UNLISTED PROCEDURE, TRACHEA, BRONCHI Transgender Gender dysphoria Insurance [facility] SHASHI G[place]CALVES [id number] Advance Directives Healthcare Agents on File Name Relationship Healthcare Agent Relationshi p Communication Jose Alves Bindery Technician Next of Kin [phone] (Edda vaca) Care Teams Clerical Clerk Relationship Specialty Start Date End Date NavajoSudha trujillo [address] [place] [address] PCP - General Family Medicine 09/07/24
--- OUTSIDE RECORDS SUMMARY | 2025-04-27 11:18 | XMS_ITS | Encounter Summary ---
Author Organization [employer] Address [address] [facility] 7t [place] [address] Care Team Providers Care Riprap Placer Name Role Phone Sudha Richardson MD Primary Care Provider +1- [phone] Matthew Woods MD Unavailable Reason for Visit * Reason Onset Date Comments Error 01/05/2024 Encounter Details Date Type Department Care Team (Late st Contact Info) Description 01/05/[address] [facility] [address] [place], [place] [phone] Sudha Richardson MD 230 [place], [place] [phone] Error Social History Tobacco Use Types Packs/Day [...] Care Team (Late st Contact Info) Description 05/02/2025 1:00 PM EDT Clinical Support [facility] DI[facility]ETES/NUTRITION [address] [place] [address] [place] [address] documented as of this encounter Visit Diagnoses Not on filedocumented in this encounter Additional Health Concerns Assessment Noted Time PHQ-9 Depression Total Score: 0 12/26/19 23 2:59 PM EST documented as of this encounter Care Teams Riprap Placer Relationship Specialty Start Date End Date Sudha Richardson MD [address] [place] [address] PCP - General Family Medicine 10/19/18 Matthew Woods MD [address] [place] [address] Pain Medicine 09/21/24 Stephanie Rice MD [address] [place] [address] 8th Floor, [address] [place] [address] Plastic Surgery 12/22/24 documented as of this encounter
[2025-04-27 14:23] LABS: MANUAL DIFF FLAG NO
[2025-04-27 14:35] LABS: Hematocrit 41.5 % (37.0-47.0); Hemoglobin 14.6 g/dl (12.0-16.0); Imm Gran Abs Auto 0.03 X10*3/uL (0.00-0.03); Imm Gran Pct Auto 0.3 % (0.0-0.4); Lymphocytes Absolute Auto 2.2 X10*3/uL (1.2-4.9); Mean Corpuscular HGB Conc 35.2 g/dl (31.0-35.0); Mean Corpuscular Hemoglobin 31.2 pg (27.0-33.0); Mean Corpuscular Volume 88.7 fL (80.0-98.0); NRBC Abs Auto 0.000 X10*3/uL (0.0-0.012); NRBC Pct Auto 0.0 /100WBC (0.0-0.2); Platelet Count 370 X10*3/uL (160-400); Red Blood Count 4.68 X10*6/uL (4.20-5.50); White Blood Count 8.6 X10*3/uL (4.8-10.8)
[2025-04-27 14:43] LABS: Alanine Aminotransferase 25 U/L (0-31); Albumin Level 4.6 g/dL (3.5-5.0); Alkaline Phosphatase 86 U/L (39-117); Anion Gap 9 (12-20); Aspartate Amino Transferase 27 U/L (5-31); Blood Urea Nitrogen 12 mg/dL (9-16); Calcium 9.1 mg/dL (8.4-10.2); Carbon Dioxide 27 mmol/L (22-29); Chloride 104 mmol/L (96-108); Cholesterol 192 mg/dL (<200); Estimated Glomerular Filt Rate > 60; HDL Cholesterol 52 mg/dL (>40); Potassium 4.2 mmol/L (3.3-5.1); Sodium 136 mmol/L (135-145); Total Protein 7.2 g/dL (6.5-8.0); Triglycerides 92 mg/dL (<150)
[2025-05-02 13:29] LABS: Testosterone, Free 0.8 pg/mL (0.1-6.4)
[2025-05-02 15:14] LABS: VITAMIN D (1,25 OH) D3 83 pg/mL; Vit D (1,25-Dihydroxy) Total 83 pg/mL (18-72); Vitamin D (1,25 OH) D2 <8 pg/mL
[2025-05-14 03:58] LABS: Estradiol Free 7.64 pg/mL; Estradiol, Ultrasensitive 558 pg/mL
== END 2025-04-27 10:39 | disposition home or self-care (01) ==
LOC: HO.HHCL 10:38
PROVIDERS: PCP Family Medicine; Visit Provider Family Medicine
DX: Z13.89 Encounter for screening for other disorder (principal)
CPT/HCPCS: 36415; 80048; 80061; 80076; 82652; 82670; 82681; 84402; 84403; 85025

== ENCOUNTER 2025-05-11 13:46 | Outpatient (AMB) | payer OTHER, SELFPAY ==
--- OUTSIDE RECORDS SUMMARY | 2025-05-11 13:49 | XMS_ITS | Referral Summary ---
Author Organization [facility] Address [address] [place] [address] Care Team Providers Care Land Acquisition Specialist Name Role Phone DebraJuvencioSudha J Primary Care Provider +- [phone] Allergies No known active allergies Medications multivitamin [...] propionate (FLONASE) 50 mcg/actuation nasal spray SMARTSI [place](s) Both Nares Daily Active gabapentin (NEURONTIN) 100 [...] Info) Description 06/27/2025 Hospital Encounter [facility] Operating Room [address] [place] [address] Shaunna Sosa MD [address] [place] [address] Scheduled Procedures Name Priority Associated Diagnoses Date/Ti me UNLISTED PROCEDURE, TRACHEA, BRONCHI Transgender Gender dysphoria Insurance [facility] [place] [id number] Advance Directives Healthcare Agents on File Name Relationship Healthcare Agent Relationshi p Communication Jose Alves Activity Assistant Next of Kin [phone] (Edda vaca) Care Teams Land Acquisition Specialist Relationship Specialty Start Date End Date JuneauSudha trujlilo [address] [place] [address] PCP - General Family Medicine 09/07/24
--- OUTSIDE RECORDS SUMMARY | 2025-05-11 13:49 | XMS_ITS | Encounter Summary ---
Author Organization [employer] Address [address] [facility] 7t [place] [address] Care Team Providers Care Elderly Caregiver Name Role Phone Sudha Richardson MD Primary Care Provider +1- [phone] Matthew Woods MD Unavailable Reason for Visit * Reason Onset Date Comments Error 01/05/2024 Encounter Details Date Type Department Care Team (Late st Contact Info) Description 01/05/2024 Telephone [facility] MED[facility]INE [address] [place], [place] [phone] Sudha Richardson MD [address] [place], [place] [phone] Error Social History Tobacco Use Types Packs/Day [...] Care Team (Late st Contact Info) Description 06/06/2025 1:00 PM EDT Clinical Support [facility] DIABETES/NUTRITION [address] [place] [address] [place] [address] documented as of this encounter Visit Diagnoses Not on filedocumented in this encounter Additional Health Concerns Assessment Noted Time PHQ-9 Depression Total Score: 0 12/26/19 23 2:59 PM EST documented as of this encounter Care Teams Elderly Caregiver Relationship Specialty Start Date End Date Sudha Richardson MD [address] [place] [address] PCP - General Family Medicine 10/19/18 Matthew Woods MD [address] [place] [address] Pain Medicine 09/21/24 Stephanie Rice MD [address] [place] [address] 8th Floor, [address] [place] [address] Plastic Surgery 12/22/24 documented as of this encounter
--- OUTSIDE RECORDS SUMMARY | 2025-05-11 13:49 | XMS_ITS | Encounter Summary ---
Author Organization [facility] Address [address] [place] [address] Phone Care Team Providers Care Wind Turbine Design Engineer Name Role Phone Sudha Richardson MD Primary Care Provi ely Encounter Details Date Type Department Care Team (Late st Contact Info) Description 06/22/2019 Telephone [facility] [address] [place] [address] Yue Wright, PT Social History Tobacco Use Types Packs/Day Years Used Date Smoking Tobacco: Never Assessed Comments Unknown Sex and Gender Information Value Date Recorded Sex Assigned at Female 12/30/2022 2:08 PM EDT Legal Sex Female 1:16 PM EDT Gender Identity Choose not to disclose 2:08 PM EDT Sexual Orientation Straight 12/30/2022 2: 08 PM EDT documented as of this encounter Plan of Treatment Not on file documented as of this encounter Visit Diagnoses Not on filedocumented in this encounter Care Teams Wind Turbine Design Engineer Relationship Specialty Start Date End Date Sudha Richardson MD [address] [place] [address] PCP - General Family Medicine 05/11/19 documented as of this encounter Additional Source Comments The information contained in this document represents components of the legal health record. It is not the complete legal health record.[facility]
--- NOTE | 2025-05-11 14:12 | MHC.OFFVIS ---
Vital Signs 05/11/25 14:13 Weight 190 lb BP 129/81 Blood Pressure Location Lt brachial Position Sitting Respiration 18 Pulse 68 Pulse Source Pulse Oximeter Pulse Oximetry (%) 98 Oxygen Delivery Method Room Air Intake Visit Reasons: Pill count- next appt needs to be in AM Intake Note: patient states she last took her oxycodone acetaminophen at 8am today 05/11/25. Jeremi says she should have 54 tabs she presented with 63 Allergies cockroach Allergy (Verified 05/11/25 14:14) Rash feathers Allergy (Verified 05/11/25 14:14) Rash HPI Comments Details: Arleth is my office today for the follow-up and pill count. The pill count is correct, she supposed to have 54 pills in her possession she brought 63 pills in her possession. This demonstrates responsible attitude to were the opioid medications. She denies side effects of the opioid medications, she denies constipation. The patient will be seen in 1 month. I will send prescription for this patient to the pharmacy on 05/30/2025. Prior: The patient presents to the office with persistent right knee pain following a right infrapatellar saphenous nerve block performed three weeks prior. Initially, post-procedure, the patient experienced significant relief with pain reduced from a 7 or 8 out of 10 to approximately a 2 or 3. The relief was short-lived as the pain eventually returned. The patient reports pre-procedure pain exacerbated by weight-bearing activities. Post-procedure, the transient relief allowed for greater mobility, which may have contributed to an increase in pain once the anesthesia wore off. The patient uses gabapentin and oxycodone for pain management, although she is wary of interactions when consuming alcohol. - Onset: Chronic, worsened significantly after nerve block wore off - Quality: Aching, sometimes sharp - Location: Right knee, radiating to hip and back - Severity: Daily average pre-block 7-8/10; immediate post-block relief to 2-3/10, then returned - Timing: Persistent, fluctuates with activity - Exacerbating Factors: Weight-bearing, increased physical activity post-block - Relieving Factors: Initial nerve block, medications (gabapentin, oxycodone), avoidant of excessive activity - Interference: Walking, standing, certain activities of daily living - Affect: Significant frustration and anxiety related to persistent pain and medical procedures - Analgesia: Gabapentin, Oxycodone; post-block relief short-lived - Adverse Effects: Dizziness and headaches likely related to anxiety and medication interactions - Activities of Daily Living: Impacts mobility, occasionally requires use of a cane, affects ability to manage household and daily tasks - Aberrant Drug Related Behaviors: None reported explicitly, cautious with alcohol interaction [facility] Medical History PTSD (post-traumatic stress disorder) Depression with anxiety Carpal tunnel syndrome, bilateral Status post gender reassignment surgery Breast implant in situ Chronic pain syndrome Spondylolysis, 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 Arthritis Surgical History History of breast implant removal Person who has undergone gender reassignment surgery Social History Alcohol intake: current Alcohol intake frequency: holidays/special occasions only Alcohol type: wine Patient Tobacco Use Status: Former Tobacco user Substance Use Type: Marijuana Current occupational status: disabled Current occupation: rt hand Review of Systems Const All systems reviewed & are unremarkable except as noted in HPI and below Physical Exam Vital Signs: Last Vital Signs Pulse 68 05/11/25 14:13 Resp 18 05/11/25 14:13 BP 129/81 05/11/25 14:13 Pulse Ox 98 05/11/25 14:13 Oxygen Delivery Method Room Air 05/11/25 14:13 General: Appears afebrile. Alert and oriented. Mood and affect appropriate. Follows and participates in conversation appropriately. Respiratory effort is unlabored. No cough. Able to transition from sit to stand unassisted. Uses cane with ambulation. Ambulates with bilaterally normal heel strike and toe off. General: Yes no CVA tenderness Back/Spine/Pelvis Back: no CVA tenderness Thoracic/Lumbar Spine: thoracic and lumbar spine normal to inspection Extrem General: Yes capillary refill normal, Yes no clubbing, cyanosis or edema and Yes no calf tenderness Psych Appearance: grossly normal Speech and movement: Normal speech and movement present and Pressured speech present Affect: Sad affect present and Hostile affect present Attitude: cooperative Thought process: Normal thought process present and Circumstantial thought process present Thought content: Normal thought content present, suicidality (none) and no hallucinations Insight: Good insight present (Psych) Judgement: Good judgement present (Psych) Assessment & Plan Assessment & Plan (1) Osteoarthritis of right knee: Code(s): M17.11 - Unilateral primary osteoarthritis, right knee Category: Medical (2) Right knee pain: Code(s): M25.561 - Pain in right knee Category: Medical Plan Her pill count is correct today she has excess of 9 pills. She will be scheduled for the appointment with me in 1 month. The medications will be refilled on 05/30/2025 Medications: Refilled oxycodone-acetaminophen 5-325 mg (Percocet) 1 tab PO TID PRN 90 tabs 0RF severe pain (scale score 7-10) 30 days G89.4 - Chronic pain syndrome, M43.06 - Spondylolysis, lumbar region, M46.1 - Sacroiliitis, not elsewhere classified Coding Level of Care Code Est Pt Level 3 (57480) Diagnoses Osteoarthritis of right knee M17.11 Right knee pain M25.561
[2025-05-11 14:13] VITALS: BP 129/81; PULSE 68; RESP 18; O2SAT 98
== END 2025-05-11 14:45 | disposition home or self-care (01) ==
LOC: HO.PMC 13:46
PROVIDERS: PCP Family Medicine; Visit Provider Anesthesiology
DX: M17.11 Unilateral primary osteoarthritis, right knee (principal); M25.561 Pain in right knee
CPT/HCPCS: 99213

== ENCOUNTER → 2025-05-11 13:46 | Outpatient (BNVA) | payer OTHER, SELFPAY | PROVIDERS: PCP Family Medicine; Visit Provider Anesthesiology | DX: M17.11 Unilateral primary osteoarthritis, right knee (principal); M25.561 Pain in right knee; Z79.891 Long term (current) use of opiate analgesic | CPT/HCPCS: 99212 ==

== ENCOUNTER 2025-06-07 09:32 | Outpatient (AMB) | payer OTHER, SELFPAY ==
--- NOTE | 2025-06-07 10:15 | MHC.OFFVIS ---
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 Jeremi says she should have 72 pills, she presented with 72 Hospice Clinical Supervisor Required: No Allergies cockroach Allergy (Verified 05/11/25 14:14) Rash feathers Allergy (Verified 05/11/25 14:14) Rash HPI Comments Details: Arleth is my office today for the follow-up and pill count. She presented herself today with 72 pills in her possession. She was supposed to have 72 pills in her possession. This demonstrates responsible attitude to were the opioid medications. She denies any side effects of the opioid medications, she denies constipation. Her new prescription is due on 07/01/2025. Next appointment will be scheduled in 1 month for the follow-up and pill count. The patient was given urine drug screen ordered today next time we will verify the urine drug screen and discuss the results. Prior: The patient presents to the office with persistent right knee pain following a right infrapatellar saphenous nerve block performed three weeks prior. Initially, post-procedure, the patient experienced significant relief with pain reduced from a 7 or 8 out of 10 to approximately a 2 or 3. The relief was short-lived as the pain eventually returned. The patient reports pre-procedure pain exacerbated by weight-bearing activities. Post-procedure, the transient relief allowed for greater mobility, which may have contributed to an increase in pain once the anesthesia wore off. The patient uses gabapentin and oxycodone for pain management, although she is wary of interactions when consuming alcohol. - Onset: Chronic, worsened significantly after nerve block wore off - Quality: Aching, sometimes sharp - Location: Right knee, radiating to hip and back - Severity: Daily average pre-block 7-8/10; immediate post-block relief to 2-3/10, then returned - Timing: Persistent, fluctuates with activity - Exacerbating Factors: Weight-bearing, increased physical activity post-block - Relieving Factors: Initial nerve block, medications (gabapentin, oxycodone), avoidant of excessive activity - Interference: Walking, standing, certain activities of daily living - Affect: Significant frustration and anxiety related to persistent pain and medical procedures - Analgesia: Gabapentin, Oxycodone; post-block relief short-lived - Adverse Effects: Dizziness and headaches likely related to anxiety and medication interactions - Activities of Daily Living: Impacts mobility, occasionally requires use of a cane, affects ability to manage household and daily tasks - Aberrant Drug Related Behaviors: None reported explicitly, cautious with alcohol interaction [facility] Medical History PTSD (post-traumatic stress disorder) Depression with anxiety Carpal tunnel syndrome, bilateral Status post gender reassignment surgery Breast implant in situ Chronic pain syndrome Spondylolysis, 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 Arthritis Surgical History History of breast implant removal Person who has undergone gender reassignment surgery Social History Alcohol intake: current Alcohol intake frequency: holidays/special occasions only Alcohol type: wine Patient Tobacco Use Status: Former Tobacco user Substance Use Type: Marijuana Current occupational status: disabled Current occupation: rt hand Review of Systems Const All systems reviewed & are unremarkable except as noted in HPI and below Physical Exam Vital Signs: Last Vital Signs Pulse 70 06/07/25 10:16 Resp 18 06/07/25 10:16 BP 143/88 H 06/07/25 10:16 Pulse Ox 100 06/07/25 10:16 Oxygen Delivery Method Room Air 06/07/25 10:16 General: Appears afebrile. Alert and oriented. Mood and affect appropriate. Follows and participates in conversation appropriately. Respiratory effort is unlabored. No cough. Able to transition from sit to stand unassisted. Uses cane with ambulation. Ambulates with bilaterally normal heel strike and toe off. General: Yes no CVA tenderness Back/Spine/Pelvis Back: no CVA tenderness Thoracic/Lumbar Spine: thoracic and lumbar spine normal to inspection Extrem General: Yes capillary refill normal, Yes no clubbing, cyanosis or edema and Yes no calf tenderness Psych Appearance: grossly normal Speech and movement: Normal speech and movement present and Pressured speech present Affect: Sad affect present and Hostile affect present Attitude: cooperative Thought process: Normal thought process present and Circumstantial thought process present Thought content: Normal thought content present, suicidality (none) and no hallucinations Insight: Good insight present (Psych) Judgement: Good judgement present (Psych) Assessment & Plan Assessment & Plan (1) Osteoarthritis of right knee: Code(s): M17.11 - Unilateral primary osteoarthritis, right knee Category: Medical (2) Right knee pain: Code(s): M25.561 - Pain in right knee Category: Medical Plan Pill count is correct today. New appointment in 1 month. The prescription is due on 07/01/2025. Medications: Refilled oxycodone-acetaminophen 5-325 mg (Percocet) 1 tab PO TID PRN 90 tabs 0RF severe pain (scale score 7-10) 30 days G89.4 - Chronic pain syndrome, M43.06 - Spondylolysis, lumbar region, M46.1 - Sacroiliitis, not elsewhere classified Coding Level of Care Code Est Pt Level 3 (50240) Diagnoses Osteoarthritis of right knee M17.11 Right knee pain M25.561
[2025-06-07 10:16] VITALS: BP 143/88; PULSE 70; RESP 18; O2SAT 100
--- OUTSIDE RECORDS SUMMARY | 2025-06-07 10:17 | XMS_ITS | Clinical Summary ---
Author Organization [facility] Address [address] [place] [address] Care Team Providers Care Tobacco Baler Name Role Phone Juvencio Richardsonbryan Taylor Primary Care Provider +- [phone] Allergies No known active allergies Medications multivitamin [...] propionate (FLONASE) 50 mcg/actuation nasal spray [facility] [place](s) Both Nares Daily Active gabapentin (NEURONTIN) 100 [...] Upcoming Encounters Date Type Department Care Team (Latest Contact Info) Description 06/15/2025 2:00 PM EDT Pre-Admission Testing [facility] [address] [place] [address] 3rd [place] [address] 06/27/2025 10:15 AM EDT Hospital Encounter [facility] [address] [place] [address] Shaunna Sosa MD [address] [place] [address] 06/27/2025 10:15 AM EDT - 06/27/2025 12:00 PM EDT Surgery [facility] [address] [place] [address] Shanuna Sosa MD [address] [place] [id number] UNLISTED PROCEDURE, TRACHEA, BRONCHI [[id number]] Scheduled Procedures Name Priority Associated Diagnoses Date/Ti me UNLISTED PROCEDURE, TRACHEA, BRONCHI Transgender Gender dysphoria 06/27/2025 10:15 AM EDT Health Maintenance Due Date Last Done Comments Cervical Cancer Screening 1983 HPV and Pap Smear 1983 Hepatitis C Screening 1983 Pap Smear 1983 Varicella Vaccines (1 of 2 - 13+ 2-dose series) 1996 Mammogram 2023 COVID-19 Vaccine ( season) 2024 04/05/2021, 03/08/2021 Alcohol/Substance Use Screening 10/19/2024 Depression Screening and Follow-Up 10/19/2024 Social Drivers of Health Annual Screening 10/19/2024 Influenza Vaccine (#1) 2025 9, 08/27/2017, 07/17/2016, Additional history exists DTaP,Tdap,and Td [...] on patient's age to complete this topic Goals Goal Patient Goal Type Associated Problems Recent Progress Patient-Stated? Author Autogenerat ed Goal Care Plan Autogenerated Problem No Lisa Montenegro Additional Health Concerns Active Problems Noted Date Diagnosed Date Autogenerated Problem 05/19/2025 Insurance [facility] Advance Directives Healthcare Agents on File Name Relationship Healthcare Agent Relationshi p Communication Jose Alves [facility] Nurse Practitioner Next of Kin [phone] (Edda vaca) Care Teams Tobacco Baler Relationship Specialty Start Date End Date [place], Sudha Taylor [address] [place] [address] PCP - General Family Medicine 09/07/24
--- OUTSIDE RECORDS SUMMARY | 2025-06-07 10:17 | XMS_ITS | Encounter Summary ---
Author Organization [facility] Address [address] [place] [phone] Phone Care Team Providers Care Driving Teacher Name Role Phone Sudha Richardson MD Primary Care Provi ely Encounter Details Date Type Department Care Team (Late st Contact Info) Description 06/22/2019 Telephone [facility] [address] [place] [address] Yue Wright, PT Social History Tobacco Use [...] on filedocumented in this encounter Care Teams Driving Teacher Relationship Specialty Start Date End Date Sudha Richardson MD [address] [place] [address] PCP - General Family Medicine 05/11/19 documented as of this encounter Additional Source Comments The information contained in this document represents components of the legal health record. It is not the complete legal health record.[facility]
--- OUTSIDE RECORDS SUMMARY | 2025-06-07 10:17 | XMS_ITS | Encounter Summary ---
Author Organization [employer] Address [address] [facility] 7t [place] [address] Care Team Providers Care Instrumentation Specialist Name Role Phone Sudha Richardson MD Primary Care Provider +1- [phone] Matthew Woods MD Unavailable Reason for Visit * Reason Onset Date Comments Error 01/05/2024 Encounter Details Date Type Department Care Team ([facility] st Contact Info) Description 01/05/2024 Telephone [facility] [address] [place] [address] Sudha Richardson MD [address] [place] [address] Error Social History Tobacco Use Types Packs/Day Years Used Date Smoking Tobacco: Former Cigarettes Passive Smoke Exposure: Current Smokeless Tobacco: Never Alcohol Use Standard Drinks/Week Comments Never 0 (1 standard drink = 0.6 oz pur e alcohol) Depression Answer Date Recorded Patient Health Questionnaire-9 Score 0 12/25/2022 Housing Stability Answer Date Recorded What is your housing situation today? I have reubenshea coughlin 08/03/[address] you [...] documented as of this encounter Care Teams Instrumentation Specialist Relationship Specialty Start Date End Date Sudha Richardson MD [address] [place] [address] PCP - General Family Medicine 10/19/18 Matthew Woods MD [address] [place] [address] Pain Medicine 09/21/24 Stephanie Rice MD [address] [facility] 8th Floor, [address] [place] [address] Plastic Surgery 12/22/24 documented as of this encounter
== END 2025-06-07 10:45 | disposition home or self-care (01) ==
LOC: HO.PMC 09:32
PROVIDERS: PCP Family Medicine; Visit Provider Anesthesiology
DX: M17.11 Unilateral primary osteoarthritis, right knee (principal); M25.561 Pain in right knee
CPT/HCPCS: 99213

== ENCOUNTER → 2025-06-07 09:32 | Outpatient (BNVA) | payer OTHER, SELFPAY | PROVIDERS: PCP Family Medicine; Visit Provider Anesthesiology | DX: M17.11 Unilateral primary osteoarthritis, right knee (principal); M25.561 Pain in right knee | CPT/HCPCS: 99212 ==

== ENCOUNTER 2025-07-05 13:33 | Outpatient (AMB) | payer OTHER, SELFPAY ==
--- NOTE | 2025-07-05 14:02 | A.OFFVIS_ITS ---
Vital Signs 07/05/25 14:03 Height 5 ft 6 in Weight 185 lb BMI 29.9 BP 119/81 Blood Pressure Location Lt brachial Position Sitting Respiration 18 Pulse 80 Pulse Source Pulse Oximeter Pulse Oximetry (%) 97 Oxygen Delivery Method Room Air Intake Visit Reasons: PILL COUNT Intake Note: pt state she last took her oxycodone acetaminophen at 1p today 07/05/25. Jeremi says she should have 78 she presented with 79 Allergies cockroach Allergy (Verified 05/11/25 14:14) Rash feathers Allergy (Verified 05/11/25 14:14) Rash HPI Comments Details: Arleth is my office today for the follow-up and pill count. She presented herself today with 79 pills in her possession. She was supposed to have 78 pills in her possession. This demonstrates responsible attitude to were the opioid medications. She reports high level of pain because she had a cosmetic surgery on removal of the thyroid cartilage. She denies any side effects of the opioid medications, she denies constipation. Her new prescription is due on 08/01/2025. Next appointment will be scheduled in 1 month for the follow-up and pill count. Prior: The patient presents to the office with persistent right knee pain following a right infrapatellar saphenous nerve block performed three weeks prior. Initially, post-procedure, the patient experienced significant relief with pain reduced from a 7 or 8 out of 10 to approximately a 2 or 3. The relief was short- lived as the pain eventually returned. The patient reports pre-procedure pain exacerbated by weight-bearing activities. Post-procedure, the transient relief allowed for greater mobility, which may have contributed to an increase in pain once the anesthesia wore off. The patient uses gabapentin and oxycodone for pain management, although she is wary of interactions when consuming alcohol. - Onset: Chronic, worsened significantly after nerve block wore off - Quality: Aching, sometimes sharp - Location: Right knee, radiating to hip and back - Severity: Daily average pre-block 7-8/10; immediate post-block relief to 2- 3/10, then returned - Timing: Persistent, fluctuates with activity - Exacerbating Factors: Weight-bearing, increased physical activity post-block - Relieving Factors: Initial nerve block, medications (gabapentin, oxycodone), avoidant of excessive activity - Interference: Walking, standing, certain activities of daily living - Affect: Significant frustration and anxiety related to persistent pain and medical procedures - Analgesia: Gabapentin, Oxycodone; post-block relief short-lived - Adverse Effects: Dizziness and headaches likely related to anxiety and medication interactions - Activities of Daily Living: Impacts mobility, occasionally requires use of a cane, affects ability to manage household and daily tasks - Aberrant Drug Related Behaviors: None reported explicitly, cautious with a lcohol interaction [facility] Medical History PTSD (post-traumatic stress disorder) Depression with anxiety Carpal tunnel syndrome, bilateral Status post gender reassignment surgery Breast implant in situ Chronic pain syndrome Spondylolysis, 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 Arthritis Surgical History History of breast implant removal Person who has undergone gender reassignment surgery Social History Alcohol intake: current Alcohol intake frequency: holidays/special occasions only Alcohol type: wine Patient Tobacco Use Status: Former Tobacco user Substance Use Type: Marijuana Current occupational status: disabled Current occupation: rt hand Review of Systems Const All systems reviewed & are unremarkable except as noted in HPI and below Physical Exam Vital Signs: Last Vital Signs Pulse 80 07/05/25 14:03 Resp 18 07/05/25 14:03 BP 119/81 07/05/25 14:03 Pulse Ox 97 07/05/25 14:03 Oxygen Delivery Method Room Air 07/05/25 14:03 BMI result Body Mass Index 29.9 General: Appears afebrile. Alert and oriented. Mood and affect appropriate. Follows and participates in conversation appropriately. Respiratory effort is unlabored. No cough. Able to transition from sit to stand unassisted. Uses cane with ambulation. Ambulates with bilaterally normal heel strike and toe off. General: Yes no CVA tenderness Back/Spine/Pelvis Back: no CVA tenderness Thoracic/Lumbar Spine: thoracic and lumbar spine normal to inspection Extrem General: Yes capillary refill normal, Yes no clubbing, cyanosis or edema and Yes no calf tenderness Psych Appearance: grossly normal Speech and movement: Normal speech and movement present and Pressured speech present Affect: Sad affect present and Hostile affect present Attitude: cooperative Thought process: Normal thought process present and Circumstantial thought process present Thought content: Normal thought content present, suicidality (none) and no hallucinations Insight: Good insight present (Psych) Judgement: Good judgement present (Psych) Assessment & Plan Assessment & Plan (1) Osteoarthritis of right knee: Code(s): M17.11 - Unilateral primary osteoarthritis, right knee Category: Medical (2) Right knee pain: Code(s): M25.561 - Pain in right knee Category: Medical Plan Pill count is correct today. New appointment in 1 month. The prescription is due on 08/01/2025 Last Narcan prescription was 02/09/2025. Medications: Refilled oxycodone-acetaminophen 5-325 mg (Percocet) 1 tab PO TID PRN 90 tabs 0RF severe pain (scale score 7-10) 30 days G89.4 - Chronic pain syndrome, M43.06 - Spondylolysis, lumbar region, M46.1 - Sacroiliitis, not elsewhere classified Coding Level of Care Code Est Pt Level 3 (05239) Diagnoses Osteoarthritis of right knee M17.11 Right knee pain M25.561
[2025-07-05 14:03] VITALS: BP 119/81; PULSE 80; RESP 18; O2SAT 97; BMI 29.9
--- OUTSIDE RECORDS SUMMARY | 2025-07-05 17:22 | XMS_ITS | Encounter Summary ---
Author Organization [employer] Address [address] [facility] 7t [place] [address] Care Team Providers Care Butter Liquefier Name Role Phone [place], Sudha FROST Primary Care Provider +- [phone] Matthew Woods MD Unavailable Reason for Visit * Reason Comments Med Refill Encounter Details Date Type Department Care Team (Late st Contact Info) Description 01/06/2024 Refill [facility] [address] [place], [place] [phone] Atiya Alegria MD [address] [place], [place] [phone] Urinary incontinence, unspecified type Social History Tobacco [...] documented as of this encounter Care Teams Butter Liquefier Relationship Specialty Start Date End Date Sudha Richardson MD [address] [place] [address] PCP - General Family Medicine 10/19/18 Matthew Woods MD [address] [place] [address] Pain Medicine 09/21/24 Stephanie Rice MD [address] [facility] 8th Floor, [address] [place] [address] Plastic Surgery 12/22/24 documented as of this encounter
--- OUTSIDE RECORDS SUMMARY | 2025-07-05 17:22 | XMS_ITS | Encounter Summary ---
Author Organization [employer] Address [address] [place] [address] 7t [place] [address] Care Team Providers Care Clam Picker Name Role Phone Sudha Richardson MD Primary Care Provider +1- [phone] Matthew Woods MD Unavailable Encounter Details Date Type Department Care Team (Late st Contact Info) Description 04/22/2023 Orders Only [facility] [address] [place] [address] Sudha Richardson MD [address] [place], [place] [phone] Gender identity disorder of adulthood (Primary Dx) [...] as of this encounter Plan of Treatment Scheduled Orders Name Type Priority Associated Diagnoses [...] documented as of this encounter Care Teams Clam Picker Relationship Specialty Start Date End Date Sudha Richardson MD [address] [place] [address] PCP - General Family Medicine 10/19/18 Matthew Woods MD [address] [place] [address] [address] [place] [address] Pain Medicine 09/21/24 Stephanie Rice MD [address] [place] [address] 8th Floor, [address] [place] [address] Plastic Surgery 12/22/24 documented as of this encounter
--- OUTSIDE RECORDS SUMMARY | 2025-07-05 17:22 | XMS_ITS | Encounter Summary ---
Author Organization [employer] Address [address] [place] [address] 7t [place] [address] Care Team Providers Care Bag Adjuster Name Role Phone Sudha Richardson MD Primary Care Provider +1- [phone] Matthew Woods MD Unavailable Reason for Visit * Reason Onset Date Comments Durable Medical Equipment 05/20/2023 Encounter Details Date Type Department Care Team (Late st Contact Info) Description 05/20/2023 Telephone [facility] [address] [place], [place] [phone] Sudha Richardson MD [address] [place] [address] Durable Medical Equipment Social History Tobacco Use [...] for signature. * Telephone Encounter - Blanka Bai - 05/20/2023 12:41 PM EDT Tc from pt requesting DME script for pull-ups (XL), wipes, and bed pads to be sent to [facility] documented in this encounter Plan of Treatment Not on file documented as of this encounter Visit Diagnoses Not on filedocumented in this encounter Additional Health Concerns Assessment Noted Time PHQ-9 Depression Total Score: 0 12/26/19 23 2:59 PM EST documented as of this encounter Care Teams Bag Adjuster Relationship Specialty Start Date End Date Sudha Richardson MD [address] [place] [address] PCP - General Family Medicine 10/19/18 Matthew Woods MD [address] [place] [address] [address] [place] [address] Pain Medicine 09/21/24 Stephanie Rice MD [address] [place] [address] 8th Floor, [address] [place] [address] Plastic Surgery 12/22/24 documented as of this encounter
--- OUTSIDE RECORDS SUMMARY | 2025-07-05 17:22 | XMS_ITS | Encounter Summary ---
Author Organization [employer] Address [address] [facility] 7t [place] [address] Care Team Providers Care Motor Boss Name Role Phone Sudha Rcihardson MD Primary Care Provider +1- [phone] Matthew Woods MD Unavailable Reason for Visit * Reason Onset Date Comments Error 01/05/2024 Encounter Details Date Type Department Care Team ([facility] st Contact Info) Description 01/05/2024 Telephone [facility] [address] [place] [address] Sudha Richardson MD [address] [place] [address] Error Social History Tobacco Use Types Packs/Day [...] documented as of this encounter Care Teams Motor Boss Relationship Specialty Start Date End Date Sudha Richardson MD [address] [place] [address] PCP - General Family Medicine 10/19/18 Matthew Woods MD [address] [facility] [address] [facility] [address] [place] [address] Pain Medicine 09/21/24 Stephanie Rice MD [address] [facility] 8th Floor, [address] [place] [address] Plastic Surgery 12/22/24 documented as of this encounter
--- OUTSIDE RECORDS SUMMARY | 2025-07-05 17:22 | XMS_ITS | Encounter Summary ---
Author Organization [employer] Address [address] [facility] 7t [place] [address] Care Team Providers Care Police Liaison Name Role Phone Sudha Richardson MD Primary Care Provider +1- [phone] Matthew Woods MD Unavailable Reason for Visit * Reason Onset Date Comments Referral 12/11/2022 Encounter Details Date Type Department Care Team (Late st Contact Info) Description 12/11/2022 Telephone [facility] [address] [place], [place] [phone] Sudha Richardson MD [address] [place] [address] Referral Social History Tobacco Use Types Packs/Day [...] is homebound. * Telephone Encounter - Светлана Smith - 12/11/2022 9:39 AM EST Tc from pt requesting a referral to [facility] for an 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 Needs a written referral with details. Pt claims that without it, no process can be down. [facility] number is [phone] press number 2. Pt states that this is through moose coordinator for pt. Please contact pt [phone] documented in this encounter Plan of Treatment Not on file documented as of this encounter Visit Diagnoses Not on filedocumented in this encounter Care Teams Police Liaison Relationship Specialty Start Date End Date Sudha Richardson MD [address] [place] [address] PCP - General Family Medicine 10/19/18 Matthew Woods MD [address] [place] [address] [address] [place] [address] Pain Medicine 09/21/24 Stephanie Rice MD [address] [place] [address] 8th Floor, [address] [place] [address] Plastic Surgery 12/22/24 documented as of this encounter
--- OUTSIDE RECORDS SUMMARY | 2025-07-05 17:22 | XMS_ITS | Encounter Summary ---
Author Organization [employer] Address [address] [facility] 7t [place] [address] Care Team Providers Care Tube Coverer Name Role Phone [place], Sudha FROST Primary Care Provider +1- [phone] Matthew Woods MD Unavailable Encounter Details Date Type Department Care Team (Late st Contact Info) Description 11/17/2022 Orders Only [facility] MED[facility]INE 230 [place] [address] Grabiel Sanders MD [address] [place] [address] Social History Tobacco Use Types Packs/Day Years [...] on file documented as of this encounter Procedures Procedure Name Priority Date/Time Associated Diagnosis Comments XR CHEST 2 VIEWS Routine 11/27/2022 3:16 PM EST documented in this encounter Results * XR Chest 2 Views (11/27/2022 3:16 PM EST) Anatomical Region Laterality Modality Chest Radiographic Kym ging 11/27/2022 3:16 PM EST Narrative 12/03/2022 11:47 AM EST [address] [address] XRay Report Signed Patient: Cherri Booth MR #: [id number] : 1985 Acct:[id number] Age/Sex: 37 / F ADM Date: 11/27/22 Loc: [facility] Attending Dr: Grabiel Sanders MD Ordering Physician: Grabiel Sanders MD Date of Service: 11/27/22 Procedure(s): XR chest 2V Accession Number(s): [id number] cc: Grabiel Sanders MD EXAMINATION: XR CHEST [...] in OV> 12/03/22 1144 DD/ 1516 TD/TT: Budder: LAVELLE Procedure Note Donotuseinterpreter, Image - 12/03/[address] [address] XRay Report Signed Patient: Cherri BoothMR #: [id number] : 1985Acct:[id number] Age/Sex: 37 / FADM Date: 11/27/22 Loc: [facility] Attending Dr: Grabiel Sanders MD Ordering Physician: Grabiel Sanders MD Date of Service: 11/27/22 Procedure(s): XR chest 2V Accession Number(s): [id number] cc: Grabiel Sanders MD EXAMINATION: XR CHEST [...] in OV> 12/03/22 1144 DD/ 1516 TD/TT: Budder: LAVELLE [facility] External Provider IMG XR PROCEDURES Edited Result - Final documented in this encounter Visit Diagnoses Not on filedocumented in this encounter Care Teams Tube Coverer Relationship Specialty Start Date End Date Sudha Richardson MD [address] [place] [address] PCP - General Family Medicine 10/19/18 Matthew Woods MD [address] [place] [address] [address] [place] [address] Pain Medicine 09/21/24 Stephanie Rice MD [address] [place] [address] 8th Floor, [address] [place] [address] Plastic Surgery 12/22/24 documented as of this encounter
--- OUTSIDE RECORDS SUMMARY | 2025-07-05 17:22 | XMS_ITS | Encounter Summary ---
Author Organization [employer] Address [address] [place] [address] 7t [place] [address] Care Team Providers Care Senior C Software Developer Name Role Phone Sudha Richardson MD Primary Care Provider +- [phone] Matthew Woods MD Unavailable Reason for Visit * Reason Comments Med Refill Encounter Details Date Type Department Care Team (Late st Contact Info) Description 01/23/2023 Refill [facility] MEDICINE [address] [place], [place] [phone] Sudha Richardson MD 230 [place], [place] [phone] Gender identity disorder of adulthood Social History [...] as of this encounter Care Teams Senior C Software Developer Relationship Specialty Start Date End Date Sudha Richardson MD [address] [place] [address] PCP - General Family Medicine 10/19/18 Matthew Woods MD [address] [place] [address] [address] [place] [address] Pain Medicine 09/21/24 Stephanie Rice MD [address] [place] [address] Floor, [address] [place] [address] Plastic Surgery 12/22/24 documented as of this encounter
--- OUTSIDE RECORDS SUMMARY | 2025-07-05 17:22 | XMS_ITS | Encounter Summary ---
Author Organization [employer] Address [address] [facility] 7t [place] [address] Care Team Providers Care Abstracter Name Role Phone Sudha Richardson MD Primary Care Provider +1- [phone] Matthew Woods MD Unavailable Encounter Details Date Type Department Care Team (Late st Contact Info) Description 11/06/2023 Telephone [facility] MEDICINE 230 [place] [address] Sudha Richardson MD 230 [place] [address] Social History Tobacco Use Types Packs/Day Years [...] documented as of this encounter Care Teams Abstracter Relationship Specialty Start Date End Date Sudha Richardson MD 230 [place] [address] PCP - General Family Medicine 10/19/18 Matthew Woods MD [address] [place] [address] Pain Medicine 09/21/24 Stephanie Rice MD [address] [place] [address] 8th Floor, [address] [place] [address] Plastic Surgery 12/22/24 documented as of this encounter
--- OUTSIDE RECORDS SUMMARY | 2025-07-05 17:22 | XMS_ITS | Encounter Summary ---
Author Organization [employer] Address [address] [place] [address] 7t [place] [address] Care Team Providers Care Windows Administrator Name Role Phone Sudha Richardson MD Primary Care Provider +1- [phone] Matthew Woods MD Unavailable Reason for Visit * Reason Onset Date Comments triage 02/04/2023 Encounter Details Date Type Department Care Team (Late st Contact Info) Description 02/04/2023 Telephone [facility] MEDICINE 230 [place], [place] [phone] Sudha Richardson MD 230 [place] [address] triage Social History Tobacco Use Types Packs/Day [...] Dr. Richardson. Pt is advised to come [facility] for care for nausea and vomiting and [...] documented as of this encounter Care Teams Windows Administrator Relationship Specialty Start Date End Date Sudha Richardson MD [address] [place] [address] PCP - General Family Medicine 10/19/18 Matthew Woods MD [address] [facility] [address] [place] [address] Pain Medicine 09/21/24 Stephanie Rice MD [address] [place] [address] Floor, [address] [place] [address] Plastic Surgery 12/22/24 documented as of this encounter
--- OUTSIDE RECORDS SUMMARY | 2025-07-05 17:22 | XMS_ITS | Encounter Summary ---
Author Organization [employer] Address [address] [facility] 7t [place] [address] Care Team Providers Care Electric Wheelchair Repairer Name Role Phone Sudha Richardson MD Primary Care Provider +1- [phone] Matthew Woods MD Unavailable Encounter Details Date Type Department Care Team (Late st Contact Info) Description 02/09/2023 Orders Only [facility] MEDICINE 230 [place] [address] Sudah Richardson MD 230 [place], [place] [phone] Social History Tobacco Use Types Packs/Day Years [...] documented as of this encounter Care Teams Electric Wheelchair Repairer Relationship Specialty Start Date End Date Sudha Richardson MD [address] [place] [address] PCP - General Family Medicine 10/19/18 Matthew Woods MD [address] [place] [address] [address] [place] [address] Pain Medicine 09/21/24 Stephanie Rice MD [address] [place] [address] 8th Floor, [address] [place] [address] Plastic Surgery 12/22/24 documented as of this encounter
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
--- OUTSIDE RECORDS SUMMARY | 2025-07-05 17:22 | XMS_ITS | Encounter Summary ---
Author Organization [employer] Address [address] [place] [address] [address] [place] [address] Care Team Providers Care Marble Worker Name Role Phone Sudha Richardson MD Primary Care Provider +1- [phone] Matthew Woods MD Unavailable Encounter Details Date Type Department Care Team (Late st Contact Info) Description 05/07/2023 Orders Only [facility] MEDICINE 230 [place] [address] Sudha Richardson MD 230 [place], [place] [phone] Gender dysphoria in adult Social History Tobacco [...] as of this encounter Care Teams Marble Worker Relationship Specialty Start Date End Date Sudha Richardson MD [address] [place] [address] PCP - General Family Medicine 10/19/18 Matthew Woods MD [address] [place] [address] [address] [place] [address] Pain Medicine 09/21/24 Stephanie Rice MD [address] [place] [address] Floor, [address] [place] [address] Plastic Surgery 12/22/24 documented as of this encounter
--- OUTSIDE RECORDS SUMMARY | 2025-07-05 17:24 | XMS_ITS | Encounter Summary ---
Author Organization [employer] Address [address] [facility] 7t [place] [address] Care Team Providers Care In Home Tutor Name Role Phone Sudha Richardson MD Primary Care Provider +1- [phone] Matthew Woods MD Unavailable Reason for Visit * Reason Comments Med Refill Encounter Details Date Type Department Care Team (Late st Contact Info) Description 05/06/2025 Refill [facility] 230 [place] [address] Sudha Richardson MD 230 [place] [address] Seasonal allergies Social History Tobacco Use Types Packs/Day Years Used Date Smoking Tobacco: Former Cigarettes Passive Smoke Exposure: Current Smokeless Tobacco: Former Quit: 12/18/2023 Alcohol Use Standard Drinks/Week Comments Never 0 (1 standard drink = 0.6 oz pur e alcohol) Depression Answer Date Recorded Patient Health Questionnaire-9 Score 04/27/2025 Patient Health Questionnaire-9 Score 04/27/2025 Last PHQ-9: Questionnaire Data Not on file 0 04/27/2025 Housing Stability Answer Date Recorded What is your housing situation today? I have reuben coughlin 04/27/[address] you li ve. Do you have problems with any of the following? None of the above 04/27/2025 Food Insecurity Answer Date Recorded Within the past 12 months, y ou worried that your food would run out before you got money to buy more: Never True 04/27/2025 Within the past 12 months,th e food you bought just didn't last and you didn't have enough money to get more: Never True 07/2025 Transportation Answer Date Recorded In the past 12 months, has l ack of transportation kept you from medical appts, meetings, work or from getting things needed for daily living? No 04/27/2025 Utilities Answer Date Recorded In the past 12 months, has t he electric, gas, oil or water company threatened to shut off services in your home? No 04/27/2025 Depression Answer Date Recorded Patient Health Questionnaire-2 Score 6 04/27/2025 Internet Access Answer Date Recorded Internet Access Q1 Yes 04/27/2025 Internet Access Q2 Not on file 04/27/2025 Sex and Gender Information Value Date Recorded Sex Assigned at Male 08/18/2022 10:14 AM EDT Legal Sex Female 10:14 AM EDT Gender Identity Transgender Female 08/18/2022 10 :14 AM EDT Sexual Orientation Choose not to disclose 2021 10:14 AM EDT documented as of this encounter Plan of Treatment Not on file documented as of this encounter Visit Diagnoses Diagnosis Seasonal allergies Allergic rhinitis, cause unspecified documented in this encounter Additional Health Concerns Assessment Noted Time PHQ-9 Depression Total Score: 23 025 9:43 AM EDT documented as of this encounter Care Teams In Home Tutor Relationship Specialty Start Date End Date Sudha Richardson MD [address] [place] [address] PCP - General Family Medicine 10/19/18 Matthew Woods MD [address] [place] [address] Drive [address] [place] [address] Pain Medicine 09/21/24 Stephanie Rice MD [address] [facility] 8th Floor, [address] [place] [address] Plastic Surgery 12/22/24 documented as of this encounter
--- OUTSIDE RECORDS SUMMARY | 2025-07-05 17:24 | XMS_ITS | Clinical Summary ---
Author Organization [facility] Address [address] [facility] [address] [place] [address] Phone Care Team Providers Care Paving Contractor Name Role Phone Sudha Richardson MD Primary Care Provi ely Allergies No known active allergies Encounters Date Type Department Care Team Description 04/13/2025 11:49 PM EDT - 04/14/2025 1:24 AM EDT Emergency [facility] [address] [place] [address] Yue Sykes MD Discharge Disposition: Home or Self Care from Last 3 Months Social History Tobacco Use Types Packs/Day Years Used Date Smoking Tobacco: Never Assessed Education Answer Date Recorded Are you interested in more education? Not on theresa e 02/13/2023 Are you concerned about learning? Not on file 02/13/2023 No 02/13/2023 No 02/13/2023 Digital Access Answer Date Recorded No 03/17/2023 No 03/17/2023 No 03/17/2023 Reliable internet access at home? Not on file 03/17/2023 Device with a working camera? Not on file Intimate Partner Violence Answer Date R ecorded Are you denied basic needs s uch as food, clothing, or medical care? No 04/13/2025 In the past 12 months have y ou been in a relationship with a person who hurts, threatens, or tries to control you? No 04/13/2025 Are you denied basic needs s uch as food, clothing, or medical care? No 04/13/2025 In the past 12 months have y ou been in a relationship with a person who hurts, threatens, or tries to control you? No 04/13/2025 Comments Unknown Sex and Gender Information Value Date Recorded Sex Assigned at Female 12/30/2022 2:08 PM EDT Legal Sex Female 1:16 PM EDT Gender Identity Choose not to disclose 2:08 PM EDT Sexual Orientation Straight 12/30/2022 2: 08 PM EDT Last Filed Vital Signs Vital Sign Reading Time Taken Comments Blood Pressure 129/84 04/14/2025 1:20 AM EDT Pulse 60 04/14/2025 1:20 AM EDT Temperature 36.4 C (97.5 F) 04/14/2025 1:20 AM EDT Respiratory Rate 18 04/14/2025 1:20 AM EDT Oxygen Saturation 99% 04/14/2025 1:20 AM EDT Inhaled Oxygen Concentration - - Weight 81.6 kg (180 lb) 04/13/2025 11:01 PM EDT Height 170.2 cm (5' 7 ) 04/13/2025 11:01 PM EDT Body Mass Index 28.19 04/13/2025 11:01 PM EDT Plan of Treatment Health Maintenance Due Date Last Done Comments DEPRESSION SCREENING 1995 SMOKING Hx and SMOKELESS TOBACCO SCREENING 1996 HEPATITIS C SCREENING 2001 HIV ONE-TIME SCREENING (18-65 YEARS) 2001 PAP SMEAR 2004 SCREENING FOR DIABETES 2018 MAMMOGRAM 2023 INFLUENZA VACCINE (#1) 2025 7, 07/17/2016, 09/27/2015, Additional history exists COVID-19 VACCINE ( season) 2025 Adult Td,Tdap Booster 07/17/2026 07/17/2016 HEPATITIS A VACCINES Aged Out No long er eligible based on patient's age to complete this topic HIB VACCINES Aged Out No longer eligi ble based on patient's age to complete this topic MENINGOCOCCAL VACCINES (ACWY) Aged Out No longer eligible based on patient's age to complete this topic MENINGOCOCCAL VACCINES (B) Aged Out N o longer eligible based on patient's age to complete this topic PNEUMOCOCCAL VACCINES (0-49 years) Aged Out No longer eligible based on patient's age to complete this topic Medical Devices Not on file Procedures Procedure Name Priority Date/Time Associated Diagnosis Comments XR FOOT 3 OR MORE VIEWS (LEFT) Routine 04/13/2025 11:59 PM EDT XR FOOT 3 OR MORE VIEWS (RIGHT) Routine 04/13/2025 11:57 PM EDT XR HIP 2 VW RIGHT PLUS PELVIS Routine 04/13/2025 11:57 PM EDT XR KNEE 4 OR MORE VIEWS (RIGHT) Routine 04/13/2025 11:57 PM EDT XR KNEE 4 OR MORE VIEWS (LEFT) Routine 04/13/2025 11:53 PM EDT from Last 3 Months Results * XR FOOT 3 OR MORE VIEWS (LEFT) (04/13/2025 11:59 PM EDT) Anatomical Region Laterality Modality Foot Left Computed Radiogr aphy 04/14/2025 12:0 9 AM EDT Impressions 04/14/2025 12:10 AM EDT No fracture or dislocation. Narrative 04/14/2025 12:10 AM EDT XR FOOT 3 OR MORE VIEWS (RIGHT), XR FOOT 3 OR MORE VIEWS (LEFT) Referring clinician's provided indication for this examination in Epic: Trauma COMPARISON: None FINDINGS: Left foot: Normal alignment. Normal joint spaces. No soft tissue swelling. Right foot: Normal alignment. Normal joint spaces. No soft tissue swelling. Procedure Note Brooke Rivers MD - 04/14/2025 XR FOOT 3 OR MORE VIEWS (RIGHT), XR FOOT 3 OR MORE VIEWS (LEFT) Referring clinician's provided indication for this examination in Epic:Trauma COMPARISON: None FINDINGS: Left foot: Normal alignment. Normal joint spaces. No soft tissue swelling. Right foot: Normal alignment. Normal joint spaces. No soft tissueswelling. IMPRESSION: No fracture or dislocation. Yue Sykes MD G XR LOWER EXTREMITY Final Result * XR FOOT 3 OR MORE VIEWS (RIGHT) (04/13/2025 11:57 PM EDT) Anatomical Region Laterality Modality Foot Right Computed Radiogr aphy 04/14/2025 12:0 9 AM EDT Impressions 04/14/2025 12:10 AM EDT No fracture or dislocation. Narrative 04/14/2025 12:10 AM EDT XR FOOT 3 OR MORE VIEWS (RIGHT), XR FOOT 3 OR MORE VIEWS (LEFT) Referring clinician's provided indication for this examination in Epic: Trauma COMPARISON: None FINDINGS: Left foot: Normal alignment. Normal joint spaces. No soft tissue swelling. Right foot: Normal alignment. Normal joint spaces. No soft tissue swelling. Procedure Note Brooke Rivers MD - 04/14/2025 XR FOOT 3 OR MORE VIEWS (RIGHT), XR FOOT 3 OR MORE VIEWS (LEFT) Referring clinician's provided indication for this examination in Epic:Trauma COMPARISON: None FINDINGS: Left foot: Normal alignment. Normal joint spaces. No soft tissue swelling. Right foot: Normal alignment. Normal joint spaces. No soft tissueswelling. IMPRESSION: No fracture or dislocation. Yue Sykes MD G XR LOWER EXTREMITY Final Result * XR HIP 2 VW RIGHT PLUS PELVIS (04/13/2025 11:57 PM EDT) Anatomical Region Laterality Modality Hip Right Computed Radiogr aphy 04/14/2025 12:0 8 AM EDT Impressions 04/14/2025 12:08 AM EDT No displaced fracture. Narrative 04/14/2025 12:08 AM EDT XR HIP 2 VW RIGHT PLUS PELVIS Referring clinician's provided indication for this examination in Epic: S/P Fall COMPARISON: None FINDINGS: Pelvis: No displaced fracture. Intact sacroiliac joints and pubic symphysis. Frontal evaluation of the left hip demonstrates normal joint space. Right hip: No displaced fracture. Normal alignment. Normal joint space. Procedure Note Brooke Rivers MD - 04/14/2025 XR HIP 2 VW RIGHT PLUS PELVIS Referring clinician's provided indication for this examination in Epic:S/P Fall COMPARISON: None FINDINGS: Pelvis: No displaced fracture. Intact sacroiliac joints and pubicsymphysis. Frontal evaluation of the left hip demonstrates normal jointspace. Right hip: No displaced fracture. Normal alignment. Normal joint space. IMPRESSION: No displaced fracture. Yue Sykes MD [facility] XR PELVIS Final Result * XR KNEE 4 OR MORE VIEWS (RIGHT) (04/13/2025 11:57 PM EDT) Anatomical Region Laterality Modality Knee Right Computed Radiogr aphy 04/14/2025 12:0 6 AM EDT Impressions 04/14/2025 12:07 AM EDT No fracture or dislocation. Narrative 04/14/2025 12:07 AM EDT XR KNEE 4 OR MORE VIEWS (LEFT), XR KNEE 4 OR MORE VIEWS (RIGHT) Referring clinician's provided indication for this examination in Epic: Trauma COMPARISON: None FINDINGS: Left knee: No fracture. Normal alignment. Normal joint spaces. No effusion. Bipartite patella. Right knee: No fracture. Normal alignment. Normal joint spaces. No effusion. Procedure Note Brooke Rivers MD - 04/14/2025 XR KNEE 4 OR MORE VIEWS (LEFT), XR KNEE 4 OR MORE VIEWS (RIGHT) Referring clinician's provided indication for this examination in Epic:Trauma COMPARISON: None FINDINGS: Left knee: No fracture. Normal alignment. Normal joint spaces. Noeffusion. Bipartite patella. Right knee: No fracture. Normal alignment. Normal joint spaces. Noeffusion. IMPRESSION: No fracture or dislocation. Yue Sykes MD IMG XR LOWER EXTREMITY Final Result * XR KNEE 4 OR MORE VIEWS (LEFT) (04/13/2025 11:53 PM EDT) Anatomical Region Laterality Modality Knee Left Computed Radiogr aphy 04/14/2025 12:0 6 AM EDT Impressions 04/14/2025 12:07 AM EDT No fracture or dislocation. Narrative 04/14/2025 12:07 AM EDT XR KNEE 4 OR MORE VIEWS (LEFT), XR KNEE 4 OR MORE VIEWS (RIGHT) Referring clinician's provided indication for this examination in Epic: Trauma COMPARISON: None FINDINGS: Left knee: No fracture. Normal alignment. Normal joint spaces. No effusion. Bipartite patella. Right knee: No fracture. Normal alignment. Normal joint spaces. No effusion. Procedure Note Brooke Rivers MD - 04/14/2025 XR KNEE 4 OR MORE VIEWS (LEFT), XR KNEE 4 OR MORE VIEWS (RIGHT) Referring clinician's provided indication for this examination in Epic:Trauma COMPARISON: None FINDINGS: Left knee: No fracture. Normal alignment. Normal joint spaces. Noeffusion. Bipartite patella. Right knee: No fracture. Normal alignment. Normal joint spaces. Noeffusion. IMPRESSION: No fracture or dislocation. Yue Sykes MD IMG XR LOWER EXTREMITY Final Result from Last 3 Months Insurance [facility] [id number] MEDICARE PART A & [id number] CARE MEDICARE REPLACEMENT MEDICARE PART A & B MEDICARE PART A & B MEDICARE PART A & B MEDICARE PART A & B Care Teams Paving Contractor Relationship Specialty Start Date End Date Debra, Sudha Biswas MD [address] [place] [address] PCP - General Family Medicine 05/11/19 Additional Source Comments The information contained in this document represents components of the legal health record. It is not the complete legal health record.[facility]
--- OUTSIDE RECORDS SUMMARY | 2025-07-05 17:24 | XMS_ITS | Clinical Summary ---
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 cleared or approved by the U.S. Food and DrugAdministration. This assay has been validated pursuantto the CLIA regulations and is used for clinicalpurposes.THIS TEST WAS PERFORMED AT:[employer] [place] [address]OWZVUOUVIKY PRITCHARD MD,PHD 04/27/2025 11:0 9 AM EDT 04/27/2025 2:19 PM EDT us Sudha Richardson MD LAB BLOOD ORDERABLES Final Result [facility] [address] [place] [address] [phone] * Hepatic Function Panel (04/27/2025 11:09 AM EDT) Bilirubin, Total 1.0 0.0 - 1.0 mg/dL [facility] Bilirubin, Direct 0.3 0.0 - 0.5 mg/dL [facility] Aspartate Amino Transferase 27 5 - 31 U/L [facility] Alanine Aminotransferase 25 0 - 31 U/L [facility] Total Protein 7.2 6.5 - 8.0 g/dL [facility] Albumin Level 4.6 3.5 - 5.0 g/dL [facility] Alkaline Phosphatase 86 39 - 117 U/L [facility] Blood Venous blood specimen / Unknown 04/27/2025 11:09 AM EDT 04/27/2025 2:19 PM EDT Sudha Richardson MD LAB BLOOD ORDERABLES Final Result [facility] [address] [place] [phone] [phone] * (ABNORMAL) Lipid Panel, Standard (04/27/2025 11:09 AM EDT) Triglycerides 92 <150 mg/dL [facility] Comment:Desirable Triglyceri de: less than 150 mg/dLBorderline High Triglyceride 150-199 mg/dLHigh Triglyceride: 200-499 mg/dLVery High Triglyceride: greater than or equal to 5OO mg/dL Cholesterol 192 <200 mg/dL [facility] Comment:Desirable Cholestero l: less than 200 mg/dLBorderline High Cholesterol: 200-239 mg/dLHigh Cholesterol: greater than 239 mg/dL LDL Cholesterol Calculated 122(H) <100 mg/dL [facility] Comment:Desirable LDL: less than 100 mg/dLNear Optimal/Above Optimal LDL: 110- 129 mg/dLBorderline High LDL: 130-159 mg/dLHigh LDL: 160-189 mg/dLVery High LDL: greater than or equal to 190 mg/dL HDL Cholesterol 52 >40 mg/dL [facility] Comment:Desirable HDL: great er than 40 mg/dL Note: This HDL assay may give artificially low results in patients with liver disease. Blood Venous blood specimen / Unknown 04/27/2025 11:09 AM EDT 04/27/2025 2:19 PM EDT Sudha Richardson MD LAB BLOOD ORDERABLES Final Result Performing Organization Address [facility] de Phone Number [facility] [address] [place] [phone] * (ABNORMAL) Basic Metabolic Panel (04/27/2025 11:09 AM EDT) Pathologist [facility] Sodium 136 135 - 145 mmol/L [facility] Potassium 4.2 3.3 - 5.1 mmol/L [facility] Chloride 104 96 - 108 mmol/L [facility] Carbon Dioxide 27 22 - 29 mmol/L [facility] Anion Gap 9(L) 12 - 20 [facility] Urea Nitrogen (BUN) 12 9 - 16 mg/dL [facility] Creatinine, Serum 0.65 0.5 - 1.4 mg/dL [facility] Estimated Glomerular Filt Rate >60 [facility] Comment:Chronic Kidney Disea se: Estimated GFR < 60 mL/min/1.56w0Yncmzi Kidney Disease: Estimated GFR < 15 mL/min/1.73m2 Glucose 96 60 - 115 mg/dL [facility] Calcium 9.1 8.4 - 10.2 mg/dL [facility] Blood Venous blood specimen / Unknown 04/27/2025 11:09 AM EDT 04/27/2025 2:19 PM EDT Sudha Richardson MD LAB BLOOD ORDERABLES Final Result Performing Organization Address [facility] Co de Phone Number [facility] [address] [place] [phone] * Hepatitis Panel, General (12/12/2024 2:36 PM EST) Pathologist [facility] Hepatitis A IgM Nonreactive Nonreactive [facility] Comment:IgM antibodies to MCKEON V not detected; does not exclude earlyacute or recovered HAV infection. ~Hepatitis B Surface Antibody REACTIVE Nonreactive [facility] Comment:REACTIVE: > 11.99 mI U/mL Hepatitis B Core Antibody Nonreactive Nonreactive [facility] Hepatitis C Antibody Nonreactive Nonreactive [facility] Comment:Antibodies to HCV no t detected; does not exclude early acuteHCV infection. Hepatitis B Surface Ag Negative Negative [facility] Blood 12/12/2024 2:36 PM EST 12/12/2024 4:05 PM EST Guerline Hilton MD LAB BLOOD ORDERABLES Fin al Result Performing Organization Address City/[facility]/ZIP Co de Phone Number [facility] [address] [place] [phone] * HIV-1/2 Antigen and Antibodies, Fourth Generation, with Reflexes (12/12/2024 2:36 PM EST) HIV AB/AG Nonreactive Nonreactive [facility] Comment:HIV-1 p24 Ag and/or HIV-1/HIV-2 Ab not detected.A test result that is nonreactive does not exclude thepossibility of exposure to or infection with HIV-1 and/orHIV-2. Nonreactive results in this assay for individualswith prior exposure to HIV-1 and/or HIV-2 may be due toantigen and antibody levels that are below the limit ofdetection of this assay.[employer] Com HIV Ag/Ab Combo assay result andsupplemental assay results should be interpreted inconjunction with the patient's clinical presentation,history and other laboratory results. If the results areinconsistent with clinical evidence, additional testing issuggested to confirm the result. Blood Venous blood specimen / Unknown 12/12/2024 2:36 PM EST 12/12/2024 4:05 PM EST us Guerline Hilton MD LAB BLOOD ORDERABLES Fin al Result Performing Organization Address City/[facility]/ZIP Co de Phone Number [facility] [address] [place] [place] [phone] * BI Mammogram Screen w/ David w/ Implants Rocky (05/26/2024 2:20 PM EDT) Anatomical Region Laterality Modality Mammography 05/26/2024 2:20 PM EDT Narrative 06/23/2024 12:00 PM EDT [facility] [address] [place], [place] [address] Mammography Report Signed Patient: Cherri Booth MR #: [id number] : 1985 Acct:[id number] Age/Sex: 39 / F ADM Date: 05/26/24 Loc: [facility] Attending Dr: Sudha Richardson MD Ordering Physician: Sudha Richardson MD Results: 1N egative Date of Service: 05/26/24 Follow Up: 1 Year From Orig ina Mammogram Procedure(s): MM tomosynthesis screen imp BI Accession Number(s): [id number] cc: Sudha Richardson MD EXAMINATION: MM SCREENING [...] by Francisca Lafleur MD in OV> 06/23/24 1612 DD/ 1420 TD/TT: 05/26/24 1444 Administrative Office Manager: Procedure Note Donotuseinterpreter, Image - 06/23/2024 [facility] [address] [place] [address] Mammography Report Signed Patient: Cherri BoothMR #: [id number] : 1985Acct:[id number] Age/Sex: 39 / FADM Date: 05/26/24 Loc: MAMMO Attending Dr: Sudha Richardson MD Ordering Physician: Sudha Richardson MDResults: 1N egative Date of Service: 05/26/24Follow Up: 1 Year From Orig inal Mammogram Procedure(s): MM tomosynthesis screen imp BI Accession Number(s): [id number] cc: Sudha Richardson MD EXAMINATION: MM SCREENING [...] by Francisca Lafleur MD in OV> 06/23/24 1701 DD/ 1420 TD/TT: 05/26/24 1444 Administrative Office Manager: Sudha Richardson MD IMG BI PROCEDURES Edited R esult - Final from Last 3 Months or Most Recently Relevant to Health Maintenance Insurance [facility] CARE < 65 Advance Directives Documents on File Type Date Recorded Patient Ekg Monitor Tech Expl anation Advance Directives and Living Will 06/10/2024 Health Care Proxy 06/10/24 Care Teams Varsity Baseball Coach Relationship Specialty Start Date End Date Sudha Richardson MD [address] [place] [phone] PCP - General Family Medicine 10/19/18 Matthew Woods MD [address] [place] [address] Pain Medicine 09/21/24 Stephanie Rice MD [address] [place] [address] 8th Floor, [address] [place] [address] Plastic Surgery 12/22/24
--- OUTSIDE RECORDS SUMMARY | 2025-07-05 17:24 | XMS_ITS | Encounter Summary ---
Author Organization [employer] Address [address] [facility] 7t [place] [address] Care Team Providers Care Bonsai Culturist Name Role Phone Suhda Richardson MD Primary Care Provider +1- [phone] Matthew Woods MD Unavailable Encounter Details Date Type Department Care Team (Late st Contact Info) Description 08/31/2024 Orders Only [facility]INE [address] [place] [address] Sudha Richardson MD [address] [place], [place] [phone] Social History Tobacco Use Types Packs/Day Years [...] documented as of this encounter Care Teams Bonsai Culturist Relationship Specialty Start Date End Date Sudha Richardson MD [address] [place] [phone] PCP - General Family Medicine 10/19/18 Matthew Woods MD [address] [place] [address] Pain Medicine 09/21/24 Stephanie Rice MD [address] [place] [address] 8th Floor, [address] [place] [address] Plastic Surgery 12/22/24 documented as of this encounter
--- OUTSIDE RECORDS SUMMARY | 2025-07-05 17:24 | XMS_ITS | Encounter Summary ---
Author Organization [facility] Address [address] [place] [phone] Phone Care Team Providers Care Melt Down Furnace Operator Name Role Phone Sudha Richardson MD Primary Care Provi ely Encounter Details Date Type Department Care Team (Late st Contact Info) Description 06/22/2019 Telephone [facility] Services [address] [place] [address] Yue Wright, PT Social History Tobacco Use [...] on filedocumented in this encounter Care Teams Melt Down Furnace Operator Relationship Specialty Start Date End Date Sudha Richardson MD [address] [place] [phone] PCP - General Family Medicine 05/11/19 documented as of this encounter Additional Source Comments The information contained in this document represents components of the legal health record. It is not the complete legal health record.[facility]
--- OUTSIDE RECORDS SUMMARY | 2025-07-05 17:24 | XMS_ITS | Encounter Summary ---
Author Organization [facility] Address [address] [place] [address] Phone Care Team Providers Care Vending Route Servicer Name Role Phone Debra, Sudha Biswas MD Primary Care Provi ely Reason for Referral * Physical Therapy (Routine) - Closed Specialty Diagnoses / Procedures Referred By Contac t Referred To Contact Physical Therapy Diagnoses Pelvic floor dysfunction Stephanie Rice MD Phone: tel: fax: [facility] [address] [place] [address] Phone: tel: Referral ID Status Reason Start Date Expiration Date Visits Re quested Visits Authorized [id number] Closed 05/16/2019 08/18/2019 12 12 Encounter Details Date Type Department Care Team (Latest Contact Info) Description 05/16/2019 Transcribe Orders [facility] Rehabilitation Services [address] [place] [address] Stephanie Rice MD [address] [facility] 8th Floor, [address] [place] [address] Pelvic floor dysfunction (Primary Dx) Social History Tobacco Use Types [...] Procedure Name Priority Date/Time Associated Diagnosis Comments AMB REFERRAL TO [facility] PHYSICAL THERAPY Routine 06/13/2019 1:51 PM EDT Pelvic floor dysfunction documented in this encounter Results * Ambulatory referral to [facility] Physical Therapy (06/13/2019 1:51 PM EDT) Stephanie Rice MD AMB [facility] REFERRALS Final Result documented in this encounter Visit Diagnoses Diagnosis Pelvic floor dysfunction- Primary documented in this encounter Care Teams Vending Route Servicer Relationship Specialty Start Date End Date Debra, Sudha Biswas MD [address] [place] [phone] PCP - General Family Medicine 05/11/19 documented as of this encounter Additional Source Comments The information contained in this document represents components of the legal health record. It is not the complete legal health record.[facility]
--- OUTSIDE RECORDS SUMMARY | 2025-07-05 17:24 | XMS_ITS | Clinical Summary ---
Author Organization [facility] Address [address] [place] [address] Care Team Providers Care Presales Consultant Name Role Phone Juvencio Richardsonbryan Taylor Primary Care Provider [phone]- [phone] Allergies Active Allergy Reactions Criticality Noted Date Comments Sertraline Nausea Medium 12/23/2018 Per pt Medications multivitamin (THERAGRAN) tablet Take 1 tablet [...] propionate (FLONASE) 50 mcg/actuation nasal spray [employer](s) Both Nares Daily Active gabapentin (NEURONTIN) 100 mg capsule Take 300 mg by mouth daily as needed. 5 Active oxyCODONE-acet aminophen (PERCOCET) 5-325 mg tablet [employer] Tablet(s) By Mouth 3 Times Daily PRN Active testosterone 20.25 mg/1.25 gram (1.62 %) gel in metered-dose pump use one pump by topical rout every other day 4 Active ibuprofen (MOTRIN) 600 mg tablet Take 1 tablet (600 mg total) by mouth every 6 hours as needed for pain. 5 Active Encounters Date Type Department Care Team Description 06/27/2025 4:44 PM EDT Anesthesia Event [facility] Operating Room [address] [place] [address] Daniel Potter, Jose Woods MD 06/27/2025 3:10 PM EDT - 06/27/2025 4:55 PM EDT Surgery [facility] Operating Room [address] [place] [address] Shaunna Sosa MD UNLISTED PROCEDURE, TRACHEA, BRONCHI [[id number]] 06/27/2025 12:17 PM EDT - 06/27/2025 7:23 PM EDT Hospital Encounter [facility] Operating Room [address] [place] [address] Shaunna Sosa MD Transgender; Gender dysphoria Discharge Disposition: Home or Self Care () 06/15/2025 2:00 PM EDT Pre-Admission Testing [facility] [address] [place] [address] [address]rd [place] [address] Edgardo Lucio PA Preop examination (Primary Dx); Transgender; Gender dysphoria from Last 3 Months Social History Tobacco Use Types Packs/Day Years Used Date Smoking Tobacco: Former Cigarettes - 2017 Smokeless Tobacco: Never Tobacco Cessation:Counseling Given: Not Answered Comments Unknown Sex and Gender Information Value Date Recorded Sex Assigned at Female 06/27/2025 12:17 PM EDT Legal Sex Female 9:26 AM EST Gender Identity Female 06/27/2025 12:17 PM EDT Sexual Orientation Not on file Last Filed Vital Signs Vital Sign Reading Time Taken Comments Blood Pressure 111/82 06/27/2025 6:30 PM EDT Pulse 73 06/27/2025 6:30 PM EDT Temperature 36.5 C (97.7 F) 06/27/2025 6:04 PM EDT Respiratory Rate 15 06/27/2025 6:30 PM EDT Oxygen Saturation 94% 06/27/2025 6:30 PM EDT Inhaled Oxygen Concentration - - Weight 83.9 kg (185 lb) 06/27/2025 2:03 PM EDT Height 170.2 cm (5' 7 ) 06/27/2025 2:03 PM EDT Body Mass Index 28.98 06/27/2025 2:03 PM EDT Plan of Treatment Upcoming Encounters Date Type Department Care Team (Late st Contact Info) Description 07/13/2025 8:15 AM EDT Follow-Up [facility] Plastic Cosmetic Surgery [address] [place] [address] [phone] Mechanical Engineering Intern: Shaunna Felipe MD [address] [place] [address] [phone] Health Maintenance Due Date Last Done Comments Cervical Cancer Screening 1985 HPV and Pap Smear 1985 Hepatitis C Screening 1985 Pap Smear 1983 Varicella Vaccines (1 of 2 - 13+ 2-dose series) 1996 Mammogram 2023 Alcohol/Substance Use Screening 10/19/2024 Depression Screening and Follow-Up 10/19/2024 Social Drivers of Health Annual Screening 10/19/2024 COVID-19 Vaccine ( season) 2025 04/05/2021, 03/08/2021 Influenza Vaccine (#1) 2025 9, 08/27/2017, 07/17/2016, Additional history exists Diabetes Screening 04/27/2028 04/27/2025, 0 12/17/2024, 09/27/2024, Additional history exists DTaP,Tdap,and Td Vaccines (3 [...] patient's age to complete this topic Procedures * Due to [place] Duc[place] law, this organization might not be sharing negative HIV tests. Procedure Name Priority Date/Time Associated Diagnosis Comments TISSUE EXAM Routine 06/27/2025 5:23 PM EDT Transgender Gender dysphoria UNLISTED PROCEDURE, TRACHEA, BRONCHI 06/27/2025 4:19 PM EDT Transgender Gender dysphoria Special Needs from Last 3 Months Results * Due to [place] law, this organization might not be sharing negative HIV tests. * Tissue Exam (06/27/2025 5:23 PM EDT) Final Diagnosis Tracheal Shave: - Fragments of cartilage and fibrous tissue, no specific pathologic change. [facility] MANUAL 06/29/2025 2:00 PM EDT [facility] at 1400 EDT Clinical History Pre-op diagnosis: Transgender [Z78.9] Gender dysphoria [F64.9] [facility] 06/29/2025 2:00 PM EDT [facility] Gross Description 1. Soft Tissue, Other The specimen is received in formalin, labeled with the patient's name, medical record number, date of , and tracheal shave . Received are multiple navarrete-white to brown irregular soft tissue fragments measuring, 2.1 x 1.7 x 0.3 cm in aggregate. The specimen is filtered and submitted in toto in cassette 1A. [facility] 06/29/2025 2:00 PM T [facility] Gross Description User Grossing complete by Romi Mariano on 06/28/2025 10:42 AM [facility] MANUAL 06/29/2025 2:00 PM EDT [facility] Embedded Images [facility] MANUAL 06/29/2025 2:00 PM EDT [facility] Resulting Agency Case was signed out at [facility], Department of Pathology, [employer] 3 CLIA [id number] [facility] MANUAL 06/29/2025 2:00 PM EDT [facility] Report Header Surgical Pathology Report Case: [id number] Authorizing Provider: Shaunna Sosa MD Collected: 06/27/2025 1723 Ordering Location: [facility] Received: 06/28/2025 0847 [facility] Operating Room Pathologist: Keiko Pruett MD Specimen: Soft Tissue, Other, Trachea - Tracheal Shave 06/29/2025 2:00 PM EDT [facility] Tissue Soft tissue / Unknown 06/27/2025 5:23 PM EDT 06/28/2025 8:47 AM EDT Comment:Pre-op diagnosis: Transgender [Z78.9] Gender dysphoria [F64.9] us Shaunna Sosa MD LAB PATHOLOGY/CYTOLOGY [facility] Final Result [facility] [address] [place] [address], [facility] [address] [place] [address], from Last 3 Months Insurance [facility] Advance Directives * Full Code (Latest Code Status on File) Date Activated Date Inactivated Comments 06/27/2025 1:45 PM 06/27/2025 9:28 PM Healthcare Agents on File Name Relationship Healthcare Agent Relationshi p Communication Jose Alves Casino Operations Supervisor Next of Kin [phone] (Edda vaca) Care Teams Presales Consultant Relationship Specialty Start Date End Date Debra, Sudha Taylor [address] [place] [phone] PCP - General Family Medicine 09/07/24
--- OUTSIDE RECORDS SUMMARY | 2025-07-05 17:24 | XMS_ITS | Encounter Summary ---
Author Organization [employer] Address [address] [facility] 7t [place] [address] Care Team Providers Care Radioisotope Production Operator Name Role Phone Sudha Richardson MD Primary Care Provider +1- [phone] Matthew Woods MD Unavailable Reason for Visit * Reason Comments Med Refill Encounter Details Date Type Department Care Team (Late st Contact Info) Description 03/26/2024 Refill [facility] MEDIC[facility] [address] [place], [place] [phone] Sudha Richardson MD [address] [place], [place] [phone] Urinary incontinence, unspecified type Social History Tobacco [...] documented as of this encounter Care Teams Radioisotope Production Operator Relationship Specialty Start Date End Date Sudha Richardson MD [address] [place] [address] PCP - General Family Medicine 10/19/18 Matthew Woods MD [address] [place] [address] Pain Medicine 09/21/24 Stephanie Rice MD [address] [place] [address] 8th Floor, [address] [place] [address] Plastic Surgery 12/22/24 documented as of this encounter
== END 2025-07-05 14:14 | disposition home or self-care (01) ==
PROVIDERS: PCP Family Medicine; Visit Provider Anesthesiology
DX: M17.11 Unilateral primary osteoarthritis, right knee (principal); M25.561 Pain in right knee
CPT/HCPCS: 99213

== ENCOUNTER → 2025-07-05 13:33 | Outpatient (BNVA) | payer OTHER, SELFPAY | PROVIDERS: PCP Family Medicine; Visit Provider Anesthesiology | DX: Z51.81 Encounter for therapeutic drug level monitoring (principal); F11.20 Opioid dependence, uncomplicated; M17.11 Unilateral primary osteoarthritis, right knee; M25.561 Pain in right knee | CPT/HCPCS: 99212 ==

== ENCOUNTER 2025-08-02 13:17 | Outpatient (AMB) | payer OTHER, SELFPAY ==
[2025-08-02 13:37] VITALS: BP 128/83; PULSE 71; RESP 16; O2SAT 96
--- NOTE | 2025-08-02 13:37 | MHC.OFFVIS ---
Vital Signs 08/02/25 13:37 Height 5 ft 6 in Weight 186 lb BMI 30.0 BP 128/83 Blood Pressure Location Lt brachial Position Sitting Respiration 16 Pulse 71 Pulse Source Pulse Oximeter Pulse Oximetry (%) 96 Oxygen Delivery Method Room Air Intake Visit Reasons: PILL COUNT Intake Note: Patient here for pill count routine of Oxycodone-acetaminophen. Per directions should have 84 pills. Patient presented 86 pills. Last took 1pm. Butadiene Converter Utility Operator Required: No Allergies cockroach Allergy (Verified 08/02/25 13:43) Rash feathers Allergy (Verified 08/02/25 13:43) Rash HPI Comments Details: Arleth is my office today for the follow-up and pill count. She presented herself today with 86 pills in her possession. She was supposed to have 84 pills in her possession. This demonstrates responsible attitude to were the opioid medications. She denies any side effects of the opioid medications, she denies constipation. Her new prescription is due on 08/31/2025 next appointment will be in 1 month. She reports that the oxycodone without acetaminophen helps her pain better than Percocet. She requests me to prescribe her oxycodone without acetaminophen. I will comply. Prior: The patient presents to the office with persistent right knee pain following a right infrapatellar saphenous nerve block performed three weeks prior. Initially, post-procedure, the patient experienced significant relief with pain reduced from a 7 or 8 out of 10 to approximately a 2 or 3. The relief was short-lived as the pain eventually returned. The patient reports pre-procedure pain exacerbated by weight-bearing activities. Post-procedure, the transient relief allowed for greater mobility, which may have contributed to an increase in pain once the anesthesia wore off. The patient uses gabapentin and oxycodone for pain management, although she is wary of interactions when consuming alcohol. - Onset: Chronic, worsened significantly after nerve block wore off - Quality: Aching, sometimes sharp - Location: Right knee, radiating to hip and back - Severity: Daily average pre-block 7-8/10; immediate post-block relief to 2-3/10, then returned - Timing: Persistent, fluctuates with activity - Exacerbating Factors: Weight-bearing, increased physical activity post-block - Relieving Factors: Initial nerve block, medications (gabapentin, oxycodone), avoidant of excessive activity - Interference: Walking, standing, certain activities of daily living - Affect: Significant frustration and anxiety related to persistent pain and medical procedures - Analgesia: Gabapentin, Oxycodone; post-block relief short-lived - Adverse Effects: Dizziness and headaches likely related to anxiety and medication interactions - Activities of Daily Living: Impacts mobility, occasionally requires use of a cane, affects ability to manage household and daily tasks - Aberrant Drug Related Behaviors: None reported explicitly, cautious with alcohol interaction 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 Arthritis Surgical History History of breast implant removal Person who has undergone gender reassignment surgery Social History Alcohol intake: current Alcohol intake frequency: holidays/special occasions only Alcohol type: wine Patient Tobacco Use Status: Former Tobacco user Substance Use Type: Marijuana Current occupational status: disabled Current occupation: rt hand Review of Systems Const All systems reviewed & are unremarkable except as noted in HPI and below Physical Exam Vital Signs: Last Vital Signs Pulse 71 08/02/25 13:37 Resp 16 08/02/25 13:37 BP 128/83 08/02/25 13:37 Pulse Ox 96 08/02/25 13:37 Oxygen Delivery Method Room Air 08/02/25 13:37 BMI result Body Mass Index 30.0 General: Appears afebrile. Alert and oriented. Mood and affect appropriate. Follows and participates in conversation appropriately. Respiratory effort is unlabored. No cough. Able to transition from sit to stand unassisted. Uses cane with ambulation. Ambulates with bilaterally normal heel strike and toe off. General: Yes no CVA tenderness Back/Spine/Pelvis Back: no CVA tenderness Thoracic/Lumbar Spine: thoracic and lumbar spine normal to inspection Extrem General: Yes capillary refill normal, Yes no clubbing, cyanosis or edema and Yes no calf tenderness Psych Appearance: grossly normal Speech and movement: Normal speech and movement present and Pressured speech present Affect: Sad affect present and Hostile affect present Attitude: cooperative Thought process: Normal thought process present and Circumstantial thought process present Thought content: Normal thought content present, suicidality (none) and no hallucinations Insight: Good insight present (Psych) Judgement: Good judgement present (Psych) Assessment & Plan Assessment & Plan (1) Osteoarthritis of right knee: Code(s): M17.11 - Unilateral primary osteoarthritis, right knee Category: Medical (2) Right knee pain: Code(s): M25.561 - Pain in right knee Category: Medical Plan Pill count is correct today. New appointment in 1 month. The prescription is due on 08/31/2025. By her request I will prescribe her oxycodone without Tylenol. Last Narcan prescription was 02/09/2025. Medications: New oxycodone Partial Fill upon patient request. 5 mg PO TID PRN 90 tabs 0RF pain 30 days Discontinued oxycodone-acetaminophen 5-325 mg (Percocet) Discontinued Reason: Doctor's Order 1 tab PO TID 30 days PRN 90 tabs 0RF severe pain (scale score 7-10) G89.4 - Chronic pain syndrome, M43.06 - Spondylolysis, lumbar region, M46.1 - Sacroiliitis, not elsewhere classified Coding Level of Care Code Est Pt Level 3 (29602) Diagnoses Osteoarthritis of right knee M17.11 Right knee pain M25.561
--- OUTSIDE RECORDS SUMMARY | 2025-08-02 16:56 | XMS_ITS | Encounter Summary ---
Author Organization [facility] Address [address] [place] [address] Phone Care Team Providers Care Set Up Operator Tool Name Role Phone Debra, Sudha Biswas MD Primary Care Provi ely Reason for Referral * Physical Therapy (Routine) - Closed Specialty Diagnoses / Procedures Referred By Contac t Referred To Contact Physical Therapy Diagnoses Pelvic floor dysfunction Stephanie Rice MD Phone: tel: fax: [facility] [address] [place] [address] Phone: tel: Referral ID Status Reason Start Date Expiration Date Visits Re quested Visits Authorized [id number] Closed 05/16/2019 08/18/2019 12 12 Encounter Details Date Type Department Care Team (Latest Contact Info) Description 05/16/2019 Transcribe Orders [facility] [address] [place] [address] Stephanie Rice MD [address] 8th [address], [address] [place] [address] Pelvic floor dysfunction (Primary Dx) Social History [...] Primary documented in this encounter Care Teams Set Up Operator Tool Relationship Specialty Start Date End Date [place]ford, Sudha Biswas MD [address] [place] [phone] PCP - General Family Medicine 05/11/19 documented as of this encounter Additional Source Comments The information contained in this document represents components of the legal health record. It is not the complete legal health record.[facility]
--- OUTSIDE RECORDS SUMMARY | 2025-08-02 16:56 | XMS_ITS | Clinical Summary ---
Author Organization [facility] Address [address] [place] [phone] Phone Care Team Providers Care Plant Buyer Name Role Phone Sudha Richardson MD Primary Care Provi ely Allergies No known active allergies Social History Tobacco Use Types Packs/Day [...] EDT Gender Identity Choose not to disclose 03/14/202 3 2:08 PM EDT Sexual Orientation Straight 12/30/2022 [...] this topic Medical Devices Not on file Insurance [facility] ONE CARE MEDICARE REPLACEMENT MEDICARE PART A & B [facility] ONE CARE MEDICARE REPLACEMENT MEDICARE PART A & B MEDICARE REPLACEMENT MEDICARE REPLACEMENT MEDICARE REPLACEMENT MEDICARE PART A & B CARE MEDICARE REPLACEMENT MEDICARE PART A & B MEDICARE PART A & B MEDICARE PART A & B Care Teams Plant Buyer Relationship Specialty Start Date End Date Hopkins, Sudha Biswas MD [address] [place] [phone] PCP - General Family Medicine 05/11/19 Additional Source Comments The information contained in this document represents components of the legal health record. It is not the complete legal health record.[facility]
--- OUTSIDE RECORDS SUMMARY | 2025-08-02 16:56 | XMS_ITS | Encounter Summary ---
Author Organization [facility] Address [address] [place] [phone] Phone Care Team Providers Care Compound Filler Name Role Phone Sudha Richardson MD Primary Care Provi ely Encounter Details Date Type Department Care Team (Late st Contact Info) Description 06/22/2019 Telephone [facility] [address] [place] [address] Yue Wright, PT Social History Tobacco Use [...] on filedocumented in this encounter Care Teams Compound Filler Relationship Specialty Start Date End Date Suhda Richardson MD [address] [place] [phone] PCP - General Family Medicine 05/11/19 documented as of this encounter Additional Source Comments The information contained in this document represents components of the legal health record. It is not the complete legal health record.[facility]
--- OUTSIDE RECORDS SUMMARY | 2025-08-02 16:57 | XMS_ITS | Clinical Summary ---
Author Organization [facility] Address [address] [place] [address] Care Team Providers Care Product Development Ecologist Name Role Phone Juvencio Richardsonbryan Taylor Primary Care Provider [phone]- [phone] Allergies Active Allergy Reactions Criticality Noted Date [...] propionate (FLONASE) 50 mcg/actuation nasal spray SMARTSI Boutte(s) Both Nares Daily Active gabapentin (NEURONTIN) 100 [...] Encounters Date Type Department Care Team Description 07/13/2025 8:15 AM EDT Follow-Up [facility] Plastic Cosmetic Surgery [address] [place] [phone] Cleaning Laborer: Shaunna Felipe MD Transgender (Primary Dx); Gender dysphoria 06/27/2025 4:44 PM EDT Anesthesia Event [facility] Operating Room [address] [place] [address] Daniel Potter DO Klein, Austin Simon, MD 06/27/2025 3:10 PM EDT - 06/27/2025 4:55 PM EDT Surgery [facility] Operating Room [address] [place] [address] Shaunna Sosa MD UNLISTED PROCEDURE, TRACHEA, BRONCHI [[id number]] 06/27/2025 12:17 PM EDT - 06/27/2025 7:23 PM EDT Hospital Encounter [facility] Operating Room [address] [place] [address] Shaunna Sosa MD Transgender; Gender dysphoria Discharge Disposition: Home or Self Care () 06/15/2025 2:00 PM EDT Pre-Admission Testing [facility] [address] [place] [address] 3rd [place] [address] Edgardo Lucio PA Preop examination (Primary Dx); Transgender; Gender dysphoria from Last 3 Months Social History Tobacco Use Types Packs/Day Years Used Date Smoking Tobacco: Former Cigarettes 2017 Smokeless Tobacco: Never Tobacco Cessation:Counseling Given: [...] Care Team (Late st Contact Info) Description 01/04/2026 10:15 AM EDT Follow-Up [facility] Plastic Cosmetic Surgery [address] [place] [phone] Cleaning Laborer: Sharmila Sosa, Shaunna Renteria MD [address] [place] [phone] Health Maintenance Due Date Last Done Comments [...] complete this topic Procedures * Due to [place] [employer] law, this organization might not be sharing negative HIV tests. Procedure Name Priority Date/Time Associated Diagnosis Comments TISSUE EXAM Routine 06/27/2025 5:23 PM EDT Transgender Gender dysphoria UNLISTED PROCEDURE, TRACHEA, BRONCHI 06/27/2025 4:19 PM EDT Transgender Gender dysphoria Special Needs from Last 3 Months Results * Due to [place] [employer] law, this organization might not be sharing negative HIV tests. * Tissue Exam (06/27/2025 5:23 PM EDT) Final Diagnosis Tracheal Shave: - Fragments of cartilage and fibrous tissue, no specific pathologic change. [facility] 06/29/2025 2:00 PM EDT [facility] PATHOLOG[facility] LAB[facility] at 1400 EDT Clinical History Pre-op diagnosis: Transgender [Z78.9] Gender dysphoria [F64.9] [facility] 06/29/2025 2:00 PM EDT [facility] PATHOLOG[facility] LAB[facility] Gross Description 1. Soft Tissue, Other The specimen is received in formalin, labeled with the patient's name, medical record number, date of , and tracheal shave . Received are multiple navarrete-white to brown irregular soft tissue fragments measuring, 2.1 x 1.7 x 0.3 cm in aggregate. The specimen is filtered and submitted in toto in cassette 1A. [facility] 06/29/2025 2:00 PM EDT [facility] Gross Description User Grossing complete by Romi Mariano on 06/28/2025 10:42 AM [facility] MANUAL 06/29/2025 2:00 PM EDT [facility] Embedded Images [facility] 06/29/2025 2:00 PM EDT [facility] [employer] [facility] Resulting Agency Case was signed out at [facility], Department of Pathology, [employer] 3 CLIA [id number] [facility] MANUAL 06/29/2025 2:00 PM EDT [facility] [employer] [facility] Report Header Surgical Pathology Report Case: [id number] Authorizing Provider: Shaunna Sosa MD Collected: 06/27/2025 1723 Ordering Location: [facility] Received: 06/28/2025 0847 [facility] Operating Room Pathologist: Keiko Pruett MD Specimen: Soft Tissue, Other, Trachea - Tracheal Shave 06/29/2025 2:00 PM EDT [facility] [employer] [facility] Tissue Soft tissue / Unknown 06/27/2025 5:23 PM EDT 06/28/2025 8:47 AM EDT Comment:Pre-op diagnosis: Transgender [Z78.9] Gender dysphoria [F64.9] us Shaunna Sosa MD LAB PATHOLOGY/CYTOLOGY BRINA DAVIS Final Result [facility] [employer] [facility] [address] [place] [phone], [facility]OLOGY LAB[facility]ATORY [address] [place] [phone], from Last 3 Months Insurance [facility] Advance Directives * Full Code (Latest Code Status on File) Date Activated Date Inactivated Comments 06/27/2025 1:45 PM 06/27/2025 9:28 PM Healthcare Agents on File Name Relationship Healthcare Agent Relationshi p Communication Jose Alves Finisher Plate Next of Kin [phone] (Edda vaca) Care Teams Product Development Ecologist Relationship Specialty Start Date End Date Sudha Richardson: [phone] [address] [place] [phone] PCP - General Family Medicine 09/07/24
== END 2025-08-02 13:43 | disposition home or self-care (01) ==
LOC: HO.PMC 13:18
PROVIDERS: PCP Family Medicine; Visit Provider Anesthesiology
DX: M17.11 Unilateral primary osteoarthritis, right knee (principal); M25.561 Pain in right knee
CPT/HCPCS: 99213

== ENCOUNTER → 2025-08-02 13:17 | Outpatient (BNVA) | payer OTHER, SELFPAY | PROVIDERS: PCP Family Medicine; Visit Provider Anesthesiology | DX: M17.11 Unilateral primary osteoarthritis, right knee (principal); M25.561 Pain in right knee; Z51.81 Encounter for therapeutic drug level monitoring; Z79.891 Long term (current) use of opiate analgesic | CPT/HCPCS: 99212 ==

== ENCOUNTER 2025-08-30 13:36 | Outpatient (AMB) | payer OTHER, SELFPAY ==
--- NOTE | 2025-08-30 13:50 | MHC.OFFVIS ---
Vital Signs 08/30/25 13:51 Height 5 ft 6 in Weight 199 lb BMI 32.1 BP 168/90 H Blood Pressure Location Lt brachial Position Sitting Respiration 16 Pulse 80 Pulse Source Pulse Oximeter Pulse Oximetry (%) 98 Oxygen Delivery Method Room Air Intake Visit Reasons: PILL COUNT Intake Note: Patient here for a pill count of Oxycodone. Per directions patient should have 0 pills. Patient presented 2 pills. Last took 1:25pm. Senior Dot Net Developer Required: No Accompanied by: Self / Same As Patient Allergies cockroach Allergy (Verified 08/30/25 13:51) Rash feathers Allergy (Verified 08/30/25 13:51) Rash HPI Comments Details: Arleth is my office today for the follow-up and pill count. She presented herself today with 2 pills in her possession. She was supposed to have 3 pills in her possession. This demonstrates responsible attitude to were the opioid medications.However it appears that the patient is at the end of her prescription month while according to the opioid contract she suppose to be visiting our provider at the middle of her prescription month. She already has a script in her pharmacy which was issued for her last time she was here. All of this was explained to the patient. She will be scheduled to see me in 3 weeks next time to bring her prescription cycle closer to the middle time between her refill prescriptions. She denies any side effects of the opioid medications, she denies constipation. She reports her pain today 02/25. Her new prescription is due on 08/31/2025 next appointment will be in 1 month. Prior: The patient presents to the office with persistent right knee pain following a right infrapatellar saphenous nerve block performed three weeks prior. Initially, post-procedure, the patient experienced significant relief with pain reduced from a 7 or 8 out of 10 to approximately a 2 or 3. The relief was short-lived as the pain eventually returned. The patient reports pre-procedure pain exacerbated by weight-bearing activities. Post-procedure, the transient relief allowed for greater mobility, which may have contributed to an increase in pain once the anesthesia wore off. The patient uses gabapentin and oxycodone for pain management, although she is wary of interactions when consuming alcohol. - Onset: Chronic, worsened significantly after nerve block wore off - Quality: Aching, sometimes sharp - Location: Right knee, radiating to hip and back - Severity: Daily average pre-block 7-8/10; immediate post-block relief to 2-3/10, then returned - Timing: Persistent, fluctuates with activity - Exacerbating Factors: Weight-bearing, increased physical activity post-block - Relieving Factors: Initial nerve block, medications (gabapentin, oxycodone), avoidant of excessive activity - Interference: Walking, standing, certain activities of daily living - Affect: Significant frustration and anxiety related to persistent pain and medical procedures - Analgesia: Gabapentin, Oxycodone; post-block relief short-lived - Adverse Effects: Dizziness and headaches likely related to anxiety and medication interactions - Activities of Daily Living: Impacts mobility, occasionally requires use of a cane, affects ability to manage household and daily tasks - Aberrant Drug Related Behaviors: None reported explicitly, cautious with alcohol interaction [facility] Medical History PTSD (post-traumatic stress disorder) Depression with anxiety Carpal tunnel syndrome, bilateral Status post gender reassignment surgery Breast implant in situ Chronic pain syndrome Spondylolysis, 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 Arthritis Surgical History History of breast implant removal Person who has undergone gender reassignment surgery Social History Alcohol intake: current Alcohol intake frequency: holidays/special occasions only Alcohol type: wine Patient Tobacco Use Status: Former Tobacco user Substance Use Type: Marijuana Current occupational status: disabled Current occupation: rt hand Review of Systems Const All systems reviewed & are unremarkable except as noted in HPI and below Physical Exam Vital Signs: Last Vital Signs Pulse 80 08/30/25 13:51 Resp 16 08/30/25 13:51 BP 168/90 H 08/30/25 13:51 Pulse Ox 98 08/30/25 13:51 Oxygen Delivery Method Room Air 08/30/25 13:51 BMI result Body Mass Index 32.1 General: Appears afebrile. Alert and oriented. Mood and affect appropriate. Follows and participates in conversation appropriately. Respiratory effort is unlabored. No cough. Able to transition from sit to stand unassisted. Uses cane with ambulation. Ambulates with bilaterally normal heel strike and toe off. General: Yes no CVA tenderness Back/Spine/Pelvis Back: no CVA tenderness Thoracic/Lumbar Spine: thoracic and lumbar spine normal to inspection Extrem General: Yes capillary refill normal, Yes no clubbing, cyanosis or edema and Yes no calf tenderness Psych Appearance: grossly normal Speech and movement: Normal speech and movement present and Pressured speech present Affect: Sad affect present and Hostile affect present Attitude: cooperative Thought process: Normal thought process present and Circumstantial thought process present Thought content: Normal thought content present, suicidality (none) and no hallucinations Insight: Good insight present (Psych) Judgement: Good judgement present (Psych) Assessment & Plan Assessment & Plan (1) Osteoarthritis of right knee: Code(s): M17.11 - Unilateral primary osteoarthritis, right knee Category: Medical (2) Right knee pain: Code(s): M25.561 - Pain in right knee Category: Medical Plan Pill count is correct today. New appointment in 3 weeks - see discussion as above. She has a script in her [facility]acy due tomorrow 08/31/2023. She is now on oxycodone 5 mg TID. Last Narcan prescription was 02/09/2025. Coding Level of Care Code Est Pt Level 3 (42085) Diagnoses Osteoarthritis of right knee M17.11 Right knee pain M25.561
[2025-08-30 13:51] VITALS: BP 168/90; PULSE 80; RESP 16; O2SAT 98; BMI 32.1
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
--- OUTSIDE RECORDS SUMMARY | 2025-08-30 16:29 | XMS_ITS | Encounter Summary ---
Author Organization [employer] Address [address] [facility] 7t [place] [address] Care Team Providers Care Round Corner Cutter Operator Name Role Phone Barber, Sudha FROST Primary Care Provider +1- [phone] Matthew Woods MD Unavailable Encounter Details Date Type Department Care Team (Late st Contact Info) Description 11/17/2022 Orders Only [facility] [address] [place] [address] Grabiel Sanders MD [address] [place] [address] Social History Tobacco Use Types Packs/Day Years [...] PM EST Narrative 12/03/2022 11:47 AM EST [address] [address] XRay Report Signed Patient: Cherri Booth MR #: [id number] : 1985 Acct:[id number] Age/Sex: 37 / F ADM Date: 11/27/22 Loc: POPEYE Attending Dr: Grabiel Sanders MD Ordering Physician: Grabiel Sanders MD Date of Service: 11/27/22 Procedure(s): XR chest 2V Accession Number(s): [id number] cc: Grabiel Sanders MD EXAMINATION: XR CHEST [...] in OV> 12/03/22 1144 DD/ 1516 TD/TT: Dependency Director: LAVELLE Procedure Note Donotuseinterpreter, Image - 12/03/[address] [address] XRay Report Signed Patient: Cherri BoothMR #: [id number] : 1985Acct:[id number] Age/Sex: 37 / FADM Date: 11/27/22 Loc: POPEYE Attending Dr: Grabiel Sanders MD Ordering Physician: Grabiel Sanders MD Date of Service: 11/27/22 Procedure(s): XR chest 2V Accession Number(s): [id number] cc: Grabiel Sanders MD EXAMINATION: XR CHEST [...] in OV> 12/03/22 1144 DD/ 1516 TD/TT: Dependency Director: LAVELLE [facility] External Provider IMG XR PROCEDURES Edited Result - Final documented in this encounter Visit Diagnoses Not on filedocumented in this encounter Care Teams Round Corner Cutter Operator Relationship Specialty Start Date End Date Sudha Richardson MD [address] [place] [address] PCP - General Family Medicine 10/19/18 Matthew Woods MD [address] [place] [address] [address] [place] [address] Pain Medicine 09/21/24 Stephanie Rice MD [address] [place] [address] 8th Floor, [address] [place] [address] Plastic Surgery 12/22/24 documented as of this encounter
--- OUTSIDE RECORDS SUMMARY | 2025-08-30 16:29 | XMS_ITS | Encounter Summary ---
Author Organization [facility] Address [address] [place] [phone] Phone Care Team Providers Care Bridal Service Sales And Management Name Role Phone Sudha Richardson MD Primary Care Provi ely Encounter Details Date Type Department Care Team (Late st Contact Info) Description 06/22/2019 Telephone [facility] [address] [place] [address] Yue Wright, PT Social History Tobacco Use [...] on filedocumented in this encounter Care Teams Bridal Service Sales And Management Relationship Specialty Start Date End Date Sudha Richardson MD [address] [place] [address] PCP - General Family Medicine 05/11/19 documented as of this encounter Additional Source Comments The information contained in this document represents components of the legal health record. It is not the complete legal health record.[facility]
--- OUTSIDE RECORDS SUMMARY | 2025-08-30 16:29 | XMS_ITS | Encounter Summary ---
Author Organization [employer] Address [address] [facility] 7t [place] [address] Care Team Providers Care Tetryl Boiling Tub Operator Name Role Phone Sudha Richardson MD Primary Care Provider +1- [phone] Matthew Woods MD Unavailable Encounter Details Date Type Department Care Team (Late st Contact Info) Description 02/09/2023 Orders Only [facility] [address] [place] [address] Sudha Richardson MD [address] [place], [place] [phone] Social History Tobacco Use Types Packs/Day Years [...] documented as of this encounter Care Teams Tetryl Boiling Tub Operator Relationship Specialty Start Date End Date Sudha Richardson MD [address] [place] [address] PCP - General Family Medicine 10/19/18 Matthew Woods MD [address] [place] [address] [address] [place] [address] Pain Medicine 09/21/24 Stephanie Rice MD [address] [place] [address] 8th Floor, [address] [place] [address] Plastic Surgery 12/22/24 documented as of this encounter
--- OUTSIDE RECORDS SUMMARY | 2025-08-30 16:29 | XMS_ITS | Encounter Summary ---
Author Organization [facility] Address [address] [place] [address] Phone Care Team Providers Care Deputy City Clerk Name Role Phone Debra, Sudha Biswas MD Primary Care Provi ely Reason for Referral * Physical Therapy (Routine) - Closed Specialty Diagnoses / Procedures Referred By Contac t Referred To Contact Physical Therapy Diagnoses Pelvic floor dysfunction Stephanie Rice MD Phone: tel: fax: [facility] [address] [place] [address] Phone: tel: Referral ID Status Reason Start Date Expiration Date Visits Re quested Visits Authorized [id number] Closed 05/16/2019 08/18/2019 12 12 Encounter Details Date Type Department Care Team (Latest Contact Info) Description 05/16/2019 Transcribe Orders [facility] [address] [place] [address] Stephanie Rice MD [address] [facility] 8th Floor, [address] [place] [address] Pelvic floor dysfunction (Primary Dx) Social History [...] Primary documented in this encounter Care Teams Deputy City Clerk Relationship Specialty Start Date End Date Debra, Sudha Biswas MD [address] [place] [address] PCP - General Family Medicine 05/11/19 documented as of this encounter Additional Source Comments The information contained in this document represents components of the legal health record. It is not the complete legal health record.[facility]
--- OUTSIDE RECORDS SUMMARY | 2025-08-30 16:29 | XMS_ITS | Encounter Summary ---
Author Organization [employer] Address [address] [place] [address] 7t [place] [address] Care Team Providers Care Cell Changer Name Role Phone Sudha Richardson MD Primary Care Provider +1- [phone] Matthew Woods MD Unavailable Encounter Details Date Type Department Care Team (Late st Contact Info) Description 04/22/2023 Orders Only [facility] [address] [place] [address] Sudha Richardson MD [address] [place], [place] [phone] Gender identity disorder of adulthood (Primary Dx) [...] documented as of this encounter Care Teams Cell Changer Relationship Specialty Start Date End Date Sudha Richardson MD [address] [place] [address] PCP - General Family Medicine 10/19/18 Matthew Woods MD [address] [place] [address] [address] [place] [address] Pain Medicine 09/21/24 Stephanie Rice MD [address] [place] [address] 8th Floor, [address] [place] [address] Plastic Surgery 12/22/24 documented as of this encounter
--- OUTSIDE RECORDS SUMMARY | 2025-08-30 16:29 | XMS_ITS | Encounter Summary ---
Author Organization [employer] Address [address] [facility] 7t [place] [address] Care Team Providers Care Compliance Field Technician Name Role Phone Sudha Richardson MD Primary Care Provider +1- [phone] Matthew Woods MD Unavailable Reason for Visit * Reason Onset Date Comments Error 01/05/2024 Encounter Details Date Type Department Care Team ([facility] st Contact Info) Description 01/05/2024 Telephone [facility] [address] [place] [address] Sudha Richardson MD [address] [place] [address] Error Social History Tobacco Use Types Packs/Day [...] documented as of this encounter Care Teams Compliance Field Technician Relationship Specialty Start Date End Date Sudha Richardson MD [address] [place] [address] PCP - General Family Medicine 10/19/18 Matthew Woods MD [address] [place] [address] Pain Medicine 09/21/24 Stephanie Rice MD [address] [facility] 8th Floor, [address] [place] [address] Plastic Surgery 12/22/24 documented as of this encounter
--- OUTSIDE RECORDS SUMMARY | 2025-08-30 16:29 | XMS_ITS | Encounter Summary ---
Author Organization [employer] Address [address] [place] [address] 7t [place] [address] Care Team Providers Care Medical Instrument Technician Name Role Phone Sudha Richardson MD Primary Care Provider +1- [phone] Matthew Woods MD Unavailable Reason for Visit * Reason Onset Date Comments triage 02/04/2023 Encounter Details Date Type Department Care Team (Late st Contact Info) Description 02/04/2023 Telephone [facility] [address] [place], [place] [phone] Sudha Richardson MD [address] [place] [address] triage Social History Tobacco Use Types Packs/Day [...] Dr. Richardson. Pt is advised to come [facility] for care for nausea and vomiting [...] documented as of this encounter Care Teams Medical Instrument Technician Relationship Specialty Start Date End Date Sudha Richardson MD [address] [place] [address] PCP - General Family Medicine 10/19/18 Matthew Woods MD [address] [place] [address] Pain Medicine 09/21/24 Stephanie Rice MD [address] [place] [address] Floor, [address] [place] [address] Plastic Surgery 12/22/24 documented as of this encounter
--- OUTSIDE RECORDS SUMMARY | 2025-08-30 16:29 | XMS_ITS | Encounter Summary ---
Author Organization [employer] Address [address] [place] [address] 7t [place] [address] Care Team Providers Care Water Filterer Name Role Phone Sudha Richardson MD Primary Care Provider +1- [phone] Matthew Woods MD Unavailable Reason for Visit * Reason Onset Date Comments Durable Medical Equipment 05/20/2023 Encounter Details Date Type Department Care Team (Late st Contact Info) Description 05/20/2023 Telephone [facility] [address] [place], [place] [phone] Sudha Richardson MD [address] [place] [address] Durable Medical Equipment Social History Tobacco Use [...] documented as of this encounter Care Teams Water Filterer Relationship Specialty Start Date End Date Sudha Richardson MD [address] [place] [address] PCP - General Family Medicine 10/19/18 Matthew Woods MD [address] [place] [address] [address] [place] [address] Pain Medicine 09/21/24 Stephanie Rice MD [address] [place] [address] 8th Floor, [address] [place] [address] Plastic Surgery 12/22/24 documented as of this encounter
--- OUTSIDE RECORDS SUMMARY | 2025-08-30 16:29 | XMS_ITS | Encounter Summary ---
Author Organization [employer] Address [address] [place] [address] 7t [place] [address] Care Team Providers Care Clarifying Plant Operator Name Role Phone Sudha Richardson MD Primary Care Provider +- [phone] Matthew Woods MD Unavailable Reason for Visit * Reason Comments Med Refill Encounter Details Date Type Department Care Team (Late st Contact Info) Description 01/23/[address] [facility] MEDICINE 230 [place], [place] [phone] Sudha Richardson MD 230 [place], [place] [phone] Gender identity disorder of adulthood Social History [...] documented as of this encounter Care Teams Clarifying Plant Operator Relationship Specialty Start Date End Date Sudha Richardson MD [address] [place] [address] PCP - General Family Medicine 10/19/18 Matthew Woods MD [address] [place] [address] [address] [place] [address] Pain Medicine 09/21/24 Stephanie Rice MD [address] [place] [address] Floor, [address] [place] [address] Plastic Surgery 12/22/24 documented as of this encounter
--- OUTSIDE RECORDS SUMMARY | 2025-08-30 16:29 | XMS_ITS | Encounter Summary ---
Author Organization [employer] Address [address] [facility] 7t [place] [address] Care Team Providers Care Lead Etl Developer Name Role Phone Sudha Richardson MD Primary Care Provider +1- [phone] Matthew Woods MD Unavailable Encounter Details Date Type Department Care Team (Late st Contact Info) Description 11/06/2023 Telephone [facility] MEDICINE 230 [place] [address] Sudha Richardson MD 230 [place] [address] Social History Tobacco Use Types Packs/Day Years [...] documented as of this encounter Care Teams Lead Etl Developer Relationship Specialty Start Date End Date Sudha Richardson MD 230 [place] [address] PCP - General Family Medicine 10/19/18 Matthew Woods MD [address] [place] [address] Pain Medicine 09/21/24 Stephanie Rice MD [address] [place] [address] 8th Floor, [address] [place] [address] Plastic Surgery 12/22/24 documented as of this encounter
--- OUTSIDE RECORDS SUMMARY | 2025-08-30 16:29 | XMS_ITS | Encounter Summary ---
Author Organization [employer] Address [address] [place] [address] 7t [place] [address] Care Team Providers Care Inspector Government Property Name Role Phone Sudha Richardson MD Primary Care Provider +1- [phone] Matthew Woods MD Unavailable Encounter Details Date Type Department Care Team (Late st Contact Info) Description 05/07/2023 Orders Only [facility] MEDICINE 230 [place] [address] Sudha Richardson MD 230 [place], [place] [phone] Gender dysphoria in adult Social History Tobacco [...] documented as of this encounter Care Teams Inspector Government Property Relationship Specialty Start Date End Date Sudha Richardson MD [address] [place] [address] PCP - General Family Medicine 10/19/18 Matthew Woods MD [address] [place] [address] [address] [place] [address] Pain Medicine 09/21/24 Stepahnie Rice MD [address] [place] [address] Floor, [address] [place] [address] Plastic Surgery 12/22/24 documented as of this encounter
--- OUTSIDE RECORDS SUMMARY | 2025-08-30 16:29 | XMS_ITS | Encounter Summary ---
Author Organization [employer] Address [address] [facility] 7t [place] [address] Care Team Providers Care Operating Engineer Apprentice Name Role Phone Hale, Sudha FROST Primary Care Provider +- [phone] Matthew Woods MD Unavailable Reason for Visit * Reason Comments Med Refill Encounter Details Date Type Department Care Team (Late st Contact Info) Description 01/06/2024 Refill [facility] MEDICINE [address] [place], [place] [phone] Atiya Alegria MD 230 [place], [place] [phone] Urinary incontinence, unspecified type Social History Tobacco [...] documented as of this encounter Care Teams Operating Engineer Apprentice Relationship Specialty Start Date End Date Sudha Richardson MD 230 [place] [address] PCP - General Family Medicine 10/19/18 Matthew Woods MD [address] [place] [address] Pain Medicine 09/21/24 Stephanie Rice MD [address] [facility] 8th Floor, [address] [place] [address] Plastic Surgery 12/22/24 documented as of this encounter
--- OUTSIDE RECORDS SUMMARY | 2025-08-30 16:29 | XMS_ITS | Clinical Summary ---
Author Organization [facility] Address [address] [place] [address] Phone Care Team Providers Care Credentialing Assistant Name Role Phone Sudha Richardson MD [...] patient's age to complete this topic IPV VACCINES Aged Out No longer eligi ble [...] topic Medical Devices Not on file Insurance MEDICARE PART A & B MEDICARE PART A & B MEDICARE REPLACEMENT SHASHI GONCALVES [id number] MEDICARE REPLACEMENT SHASHI GONCALVES [id number] MEDICARE REPLACEMENT MEDICARE PART A & B CARE MEDICARE REPLACEMENT CARE MEDICARE REPLACEMENT MEDICARE PART A & B MEDICARE PART A & B MEDICARE PART A & B Care Teams Credentialing Assistant Relationship Specialty Start Date End Date [place], Sudha Biswas MD [address] [place] [address] PCP - General Family Medicine 05/11/19 Additional Source Comments The information contained in this document represents components of the legal health record. It is not the complete legal health record.[facility]
--- OUTSIDE RECORDS SUMMARY | 2025-08-30 16:29 | XMS_ITS | Clinical Summary ---
Author Organization [facility] Address [address] [place] [address] Care Team Providers Care Citrus Fruit Packer Name Role Phone Juvencio Richardsonbryan Taylor Primary Care Provider +1- [phone] Allergies Active Allergy Reactions Criticality Noted Date [...] propionate (FLONASE) 50 mcg/actuation nasal spray [employer] [place](s) Both Nares Daily Active gabapentin (NEURONTIN) 100 [...] Team Description 07/13/2025 8:15 AM EDT Follow-Up [facility] Plastic Cosmetic Surgery [address] [place] [address] Regulatory Affairs Spec: Shaunna Felipe MD Transgender (Primary Dx); Gender dysphoria 06/27/2025 4:44 PM EDT Anesthesia Event [facility] Operating Room [address] [place] [address] Daniel Potter DO Klein, Austin Simon, MD 06/27/2025 3:10 PM EDT - 06/27/2025 4:55 PM EDT Surgery [facility] Operating Room [address] [place] [address] Shaunna Sosa MD UNLISTED PROCEDURE, TRACHEA, BRONCHI [[id number]] 06/27/2025 12:17 PM EDT - 06/27/2025 7:23 PM EDT Hospital Encounter [facility] Operating Room [address] [place] [address] Shaunna Sosa MD Transgender; Gender dysphoria Discharge Disposition: Home or Self Care () 06/15/2025 2:00 PM EDT Pre-Admission Testing [facility] [address] [place] [address] 3rd [place] [address] Edgardo Lucio PA Preop examination (Primary Dx); [...] Info) Description 01/04/2026 10:15 AM EDT Follow-Up [facility] Plastic Cosmetic Surgery [address] [place] [address] Regulatory Affairs Spec: Sharmila Sosa, Shaunna Renteria MD [address] [place] [address] Health Maintenance Due Date Last Done Comments [...] - Td or Tdap) 02/04/2034 02/05/2024, 07/17/2016 Hepatitis B Vaccines Completed 08/12/2023, 04/15/2023, 07/21/2019 HIV Screening Completed 12/12/2024, 11/20, 04/16/2023 Pneumococcal Vaccine: Pediatric (0-5 Years) and At-Risk Patients (6-50 Years) Aged Out No longer eligible based on patient's age to complete this topic Procedures * Due to [place] Q[place]usters law, this organization might not be sharing negative HIV tests. Procedure Name Priority Date/Time Associated Diagnosis Comments TISSUE EXAM Routine 06/27/2025 5:23 PM EDT Transgender Gender dysphoria UNLISTED PROCEDURE, TRACHEA, BRONCHI 06/27/2025 4:19 PM EDT Transgender Gender dysphoria Special Needs from Last 3 Months Results * Due to [place] [employer] law, this organization might not be sharing negative HIV tests. * Tissue Exam (06/27/2025 5:23 PM EDT) Final Diagnosis Tracheal Shave: - Fragments of cartilage and fibrous tissue, no specific pathologic change. [facility] MANUAL 06/29/2025 2:00 PM EDT [facility] ANATOMIC PATHOLOGY LABORATORY at 1400 EDT [...] and submitted in toto in cassette 1A. [facility] MANUAL 06/29/2025 2:00 PM EDT [facility] ANATOMIC PATHOLOGY LABORATORY Gross Description User Grossing complete by Romi Mariano on 06/28/2025 10:42 AM [facility] MANUAL 06/29/2025 2:00 PM EDT [facility] ANATOMIC PATHOLOGY LABORATORY Embedded Images [facility] MANUAL 06/29/2025 2:00 PM EDT [facility] [place] [facility] ANATOMIC PATHOLOGY LABORATORY Resulting Agency Case was signed out at [facility], Department of Pathology, [employer] 3 CLIA [id number] [facility] MANUAL 06/29/2025 2:00 PM EDT [facility] [place] [facility] ANATOMIC PATHOLOGY LABORATORY Report Header Surgical Pathology Report Case: [id number] Authorizing Provider: Shaunna Sosa MD Collected: 06/27/2025 1723 Ordering Location: [facility] Received: 06/28/2025 0847 [facility] Operating Room Pathologist: Keiko Pruett MD Specimen: Soft Tissue, Other, Trachea - Tracheal Shave 06/29/2025 2:00 PM EDT [facility] ANATOMIC PATHOLOGY LABORAT[facility] Tissue Soft tissue / Unknown 06/27/2025 5:23 PM EDT 06/28/2025 8:47 AM EDT Comment:Pre-op diagnosis: Transgender [Z78.9] Gender dysphoria [F64.9] us Shaunna Sosa MD LAB PATHOLOGY/CYTOLOGY BRINA DAVIS Final Result [facility] ANATOMIC PATHOLOGY LABOR[facility] [address] [place] [address] ANATOMIC PATHOLOGY LABORATORY [address] [place] [address], from Last [address] [place] [address] [place] [address] Advance Directives * Full Code (Latest Code Status on File) Date Activated Date Inactivated Comments 06/27/2025 1:45 PM 06/27/2025 9:28 PM Healthcare Agents on File Name Relationship Healthcare Agent [facility] p Communication Jose Alves Sail Lay Out Worker Next of Kin [phone] (Edda vaca) Care Teams Citrus Fruit Packer Relationship Specialty Start Date End Date Sudha Richardson [address] [place] [address] PCP - General Family Medicine 09/07/24
--- OUTSIDE RECORDS SUMMARY | 2025-08-30 16:29 | XMS_ITS | Encounter Summary ---
Author Organization [employer] Address [address] [facility] 7t [place] [address] Care Team Providers Care Security Guard Supervisor Name Role Phone Sudha Richardson MD Primary Care Provider +1- [phone] Matthew Woods MD Unavailable Reason for Visit * Reason Comments Med Refill Encounter Details Date Type Department Care Team (Late st Contact Info) Description 03/26/2024 Refill [facility] MEDICINE 230 [place], [place] [phone] Sudha Richardson MD 230 [place], [place] [phone] Urinary incontinence, unspecified type Social History Tobacco [...] documented as of this encounter Care Teams Security Guard Supervisor Relationship Specialty Start Date End Date Sudha Richardson MD 230 [place] [address] PCP - General Family Medicine 10/19/18 Matthew Woods MD [address] [place] [address] Pain Medicine 09/21/24 Stephanie Rice MD [address] [place] [address] 8th Floor, [address] [place] [address] Plastic Surgery 12/22/24 documented as of this encounter
--- OUTSIDE RECORDS SUMMARY | 2025-08-30 16:29 | XMS_ITS | Encounter Summary ---
Author Organization [employer] Address [address] [facility] 7t [place] [address] Care Team Providers Care Soda Dry House Operator Name Role Phone Sudha Richardson MD Primary Care Provider +1- [phone] Matthew Woods MD Unavailable Encounter Details Date Type Department Care Team (Late st Contact Info) Description 08/31/2024 Orders Only [facility] MEDICINE 230 [place] [address] Sudha Richardson MD 230 [place], [place] [phone] Social History Tobacco Use Types Packs/Day Years [...] documented as of this encounter Care Teams Soda Dry House Operator Relationship Specialty Start Date End Date Sudha Richardson MD [address] [place] [address] PCP - General Family Medicine 10/19/18 Matthew Woods MD [address] [place] [address] Pain Medicine 09/21/24 Stephanie Rice MD [address] [place] [address] 8th Floor, [address] [place] [address] Plastic Surgery 12/22/24 documented as of this encounter
--- OUTSIDE RECORDS SUMMARY | 2025-08-30 16:29 | XMS_ITS | Encounter Summary ---
Author Organization [employer] Address [address] [facility] 7t [place] [address] Care Team Providers Care Regional Loss Prevention Manager Name Role Phone Sudha Richardson MD Primary Care Provider +1- [phone] Matthew Woods MD Unavailable Reason for Visit * Reason Comments Med Refill Encounter Details Date Type Department Care Team (Late st Contact Info) Description 05/06/2025 Refill [facility] 230 [place] [address] Sudha Richardson MD 230 [place] [address] Seasonal allergies Social History Tobacco Use Types [...] documented as of this encounter Care Teams Regional Loss Prevention Manager Relationship Specialty Start Date End Date Sudha Richardson MD [address] [place] [address] PCP - General Family Medicine 10/19/18 Matthew Woods MD [address] [place] [address] Drive [address] [place] [address] Pain Medicine 09/21/24 Stephanie Rice MD [address] [facility] 8th Floor, [address] [place] [address] Plastic Surgery 12/22/24 documented as of this encounter
--- OUTSIDE RECORDS SUMMARY | 2025-08-30 16:29 | XMS_ITS | Encounter Summary ---
Author Organization [employer] Address [address] [facility] 7t [place] [address] Care Team Providers Care Hand Marker Name Role Phone Sduha Richardson MD Primary Care Provider +1- [phone] Matthew Woods MD Unavailable Reason for Visit * Reason Comments Med Refill Encounter Details Date Type Department Care Team (Late st Contact Info) Description 08/26/2025 Refill [facility] 230 [place] [address] Sudha Richardson MD 230 [place] [address] Social History Tobacco Use Types Packs/Day Years [...] as of this encounter Care Teams Hand Marker Relationship Specialty Start Date End Date Sudha Richardson MD [address] [place] [address] PCP - General Family Medicine 10/19/18 Matthew Woods MD [address] [place] [address] Drive [address] [place] [address] Pain Medicine 09/21/24 Stephanie Rice MD [address] [facility] 8th Floor, [address] [place] [address] Plastic Surgery 12/22/24 documented as of this encounter
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
--- OUTSIDE RECORDS SUMMARY | 2025-08-30 16:29 | XMS_ITS | Encounter Summary ---
Author Organization [employer] Address [address] [facility] 7t [place] [address] Care Team Providers Care Medtronics Technician Name Role Phone Sudha Richardson MD Primary Care Provider +1- [phone] Matthew Woods MD Unavailable Reason for Visit * Reason Onset Date Comments Referral 12/11/2022 Encounter Details Date Type Department Care Team (Late st Contact Info) Description 12/11/2022 Telephone [facility] MEDICINE 230 [place], [place] [phone] Sudha Richardson MD 230 [place] [address] Referral Social History Tobacco Use Types Packs/Day [...] Tc from pt requesting a referral to [facility] for an 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 Needs a written referral with details. Pt claims that without it, no process can be down. [facility] number is [phone] press number 2. Pt states that this is through moose coordinator for pt. Please contact pt [phone] documented in this encounter Plan of Treatment Not on file documented as of this encounter Visit Diagnoses Not on filedocumented in this encounter Care Teams Medtronics Technician Relationship Specialty Start Date End Date Sudha Richardson MD [address] [place] [address] PCP - General Family Medicine 10/19/18 Matthew Woods MD [address] [place] [address] [address] [place] [address] Pain Medicine 09/21/24 Stephanie Rice MD [address] [place] [address] 8th Floor, [address] [place] [address] Plastic Surgery 12/22/24 documented as of this encounter
== END 2025-08-30 14:12 | disposition home or self-care (01) ==
PROVIDERS: PCP Family Medicine; Visit Provider Anesthesiology
DX: M17.11 Unilateral primary osteoarthritis, right knee (principal); M25.561 Pain in right knee
CPT/HCPCS: 99213

== ENCOUNTER → 2025-08-30 13:36 | Outpatient (BNVA) | payer OTHER, SELFPAY | PROVIDERS: PCP Family Medicine; Visit Provider Anesthesiology | DX: M25.561 Pain in right knee (principal); M17.11 Unilateral primary osteoarthritis, right knee | CPT/HCPCS: 99212 ==

== ENCOUNTER 2025-09-20 12:48 | Outpatient (AMB) | payer OTHER, SELFPAY ==
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
[2025-09-20 13:00] VITALS: BP 138/95; PULSE 75; RESP 16; O2SAT 99; BMI 32.6
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
--- OUTSIDE RECORDS SUMMARY | 2025-09-20 15:03 | XMS_ITS | Encounter Summary ---
Author Organization [employer] Address [address] [place] [address] 7t [place] [address] Care Team Providers Care Flat Sorting Machine Clerk Name Role Phone Sudha Richardson MD Primary Care Provider +1- [phone] Matthew Woods MD Unavailable Reason for Visit * Reason Onset Date Comments triage 02/04/2023 Encounter Details Date Type Department Care Team (Late st Contact Info) Description 02/04/2023 Telephone [facility] MEDICINE [address] [place], [place] [phone] Sudha Richardson MD [address] [place] [address] triage Social History Tobacco Use Types Packs/Day [...] related imbalance with red spider veins on breasts , painful and itchy. Pt requests this information be sent to Dr. Richardson. Pt is advised to come to [facility] for care for nausea and vomiting and [...] Description 10/04/2025 2:00 PM EST Office Visit [facility] MEDICINE [address] [place] [address] Sudha Richardson MD [address] [place] [address] 11/20/2025 3:30 PM EST Clinical Support [facility] DIABETES/NUTRITION [address] [place] [address] [place] [address] documented as of this encounter Visit Diagnoses Not on filedocumented in this encounter Additional Health Concerns Assessment Noted Time PHQ-9 Depression Total Score: 0 12/26/19 23 2:59 PM EST documented as of this encounter Care Teams Flat Sorting Machine Clerk Relationship Specialty Start Date End Date Sudha Richardson MD [address] [place] [address] PCP - General Family Medicine 10/19/18 Matthew Woods MD [address] [place] [address] [address] [place] [address] Pain Medicine 09/21/24 Stephanie Rice MD [address] [place] [address] 8th Floor, [address] [place] [address] Plastic Surgery 12/22/24 documented as of this encounter
--- OUTSIDE RECORDS SUMMARY | 2025-09-20 15:03 | XMS_ITS | Encounter Summary ---
Author Organization [employer] Address [address] [facility] 7t [place] [address] Care Team Providers Care Fire Extinguisher Tester Name Role Phone Debra, Sudha FROST Primary Care Provider +- [phone] Matthew Woods MD Unavailable Reason for Visit * Reason Comments Med Refill Encounter Details Date Type Department Care Team (Late st Contact Info) Description 01/06/2024 Refill [facility] MEDICINE [address] [place], [place] [phone] Atiya Alegria MD [address] [place], [place] [phone] Urinary incontinence, unspecified type Social History Tobacco [...] Description 10/04/2025 2:00 PM EST Office Visit [facility] MEDICINE [address] [place] [address] Sudha Richardson MD [address] [place] [address] 11/20/2025 3:30 PM EST Clinical Support [facility] DIABETES/NUTRITION [address] [place] [address] [place] [address] documented as of this encounter Visit Diagnoses Diagnosis Urinary incontinence, unspecified type documented in this encounter Additional Health Concerns Assessment Noted Time PHQ-9 Depression Total Score: 0 12/26/19 23 2:59 PM EST documented as of this encounter Care Teams Fire Extinguisher Tester Relationship Specialty Start Date End Date Sudha Richardson MD [address] [place] [address] PCP - General Family Medicine 10/19/18 Matthew Woods MD [address] [place] [address] Pain Medicine 09/21/24 Stephanie Rice MD [address] [place] [address] Floor, [address] [place] [address] Plastic Surgery 12/22/24 documented as of this encounter
--- OUTSIDE RECORDS SUMMARY | 2025-09-20 15:03 | XMS_ITS | Encounter Summary ---
Author Organization [employer] Address [address] [facility] 7t [place] [address] Care Team Providers Care Supervisor Receiving And Processing Name Role Phone Sudha Richardson MD Primary Care Provider +1- [phone] Matthew Woods MD Unavailable Reason for Visit * Reason Onset Date Comments Referral 12/11/2022 Encounter Details Date Type Department Care Team (Late st Contact Info) Description 12/11/2022 Telephone [facility] MEDICINE [address] [place], [place] [phone] Sudha Richardson MD [address] [place] [address] Referral Social History Tobacco Use Types Packs/Day [...] Tc from pt requesting a referral to [facility] PT for an 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 Needs a written referral with details. Pt claims that without it, no process can be down. [facility] PT number is [phone] press number 2. Pt states that this is through moose coordinator for pt. Please contact pt [phone] documented in this encounter Plan of Treatment Upcoming Encounters Date Type Department Care Team (Late st Contact Info) Description 10/04/2025 2:00 PM EST Office Visit [facility] MEDICINE [address] [place] [address] Sudha Richardson MD [address] [place] [address] 11/20/2025 3:30 PM EST Clinical Support [facility] DIABETES/NUTRITION [address] [place] [address] [place] [address] documented as of this encounter Visit Diagnoses Not on filedocumented in this encounter Care Teams Supervisor Receiving And Processing Relationship Specialty Start Date End Date Sudha Richardson MD [address] [place] [address] PCP - General Family Medicine 10/19/18 Matthew Woods MD [address] [place] [address] Pain Medicine 09/21/24 Stepahnie Rice MD [address] [place] [address] 8th Floor, [address] [place] [address] Plastic Surgery 12/22/24 documented as of this encounter
--- OUTSIDE RECORDS SUMMARY | 2025-09-20 15:03 | XMS_ITS | Encounter Summary ---
Author Organization [employer] Address [address] [facility] 7t [place] [address] Care Team Providers Care Conduit Bender Name Role Phone Sudha Richardson MD Primary Care Provider +1- [phone] Matthew Woods MD Unavailable Encounter Details Date Type Department Care Team (Late st Contact Info) Description 02/09/2023 Orders Only [facility] MEDICINE [address] [place] [address] Sudha Richardson MD [address] [place], [place] [phone] Social History Tobacco Use Types Packs/Day Years [...] Description 10/04/2025 2:00 PM EST Office Visit [facility] MEDICINE [address] [place] [address] Sudha Richardson MD [address] [place] [address] 11/20/2025 3:30 PM EST Clinical Support [facility] DIABETES/NUTRITION [address] [place] [address] Roberta Mckeon, CHARLA [address] [place] [address] documented as of this encounter Visit Diagnoses Not on filedocumented in this encounter Additional Health Concerns Assessment Noted Time PHQ-9 Depression Total Score: 0 12/26/19 23 2:59 PM EST documented as of this encounter Care Teams Conduit Bender Relationship Specialty Start Date End Date Sudha Richardson MD [address] [place] [address] PCP - General Family Medicine 10/19/[address] Matthew Woods MD [address] [place] [address] Pain Medicine 09/21/24 Stephanie Rice MD [address] [place] [address] Floor, [address] [place] [address] Plastic Surgery 12/22/24 documented as of this encounter
--- OUTSIDE RECORDS SUMMARY | 2025-09-20 15:03 | XMS_ITS | Encounter Summary ---
Author Organization [facility] Address [address] [place] [phone] Phone Care Team Providers Care Exterminator Helper Name Role Phone Sudha Richardson MD Primary Care Provi ely Encounter Details Date Type Department Care Team (Late st Contact Info) Description 06/22/2019 Telephone [facility] [address] [place] [address] Yue Wright, PT Social History Tobacco Use [...] on filedocumented in this encounter Care Teams Exterminator Helper Relationship Specialty Start Date End Date Sudha Richardson MD [address] [place] [address] PCP - General Family Medicine 05/11/19 documented as of this encounter Additional Source Comments The information contained in this document represents components of the legal health record. It is not the complete legal health record.[facility]
--- OUTSIDE RECORDS SUMMARY | 2025-09-20 15:03 | XMS_ITS | Clinical Summary ---
Author Organization [facility] Address [address] [place] [address] Care Team Providers Care Inspector Subassemblies Name Role Phone Juvencio Richardsonbryan Taylor Primary Care Provider +1- [phone] Allergies Active Allergy Reactions Criticality Noted Date [...] propionate (FLONASE) 50 mcg/actuation nasal spray [employer] [place](s) Both Nares Daily Active gabapentin (NEURONTIN) 100 [...] Team Description 07/13/2025 8:15 AM EDT Follow-Up [facility] Plastic Cosmetic Surgery [address] [place] [address] Malt House Kiln Operator: Shaunna Felipe MD Transgender (Primary Dx); Gender dysphoria 06/27/2025 4:44 PM EDT Anesthesia Event [facility] Operating Room [address] [place] [address] Daniel Potter DO Klein, Austin Simon, MD 06/27/2025 3:10 PM EDT - 06/27/2025 4:55 PM EDT Surgery [facility] Operating Room [address] [place] [address] Shaunna Sosa MD UNLISTED PROCEDURE, TRACHEA, BRONCHI [[id number]] 06/27/2025 12:17 PM EDT - 06/27/2025 7:23 PM EDT Hospital Encounter [facility] Operating Room [address] [place] [address] Shaunna Sosa MD Transgender; Gender dysphoria Discharge Disposition: Home or Self Care (01) from Last 3 Months Social History Tobacco Use Types Packs/Day Years Used Date Smoking Tobacco: Former Cigarettes 1 - 2017 Smokeless Tobacco: Never Tobacco Cessation:Counseling [...] Info) Description 01/04/2026 10:15 AM EDT Follow-Up [facility] Plastic Cosmetic Surgery [address] [place] [address] [phone] Malt House Kiln Operator: Shaunna Felipe MD [address] [place] [address] [phone] Health Maintenance Due Date Last Done Comments Cervical Cancer Screening 1983 HPV and Pap Smear 1983 Hepatitis C Screening 1983 Pap Smear 1983 Varicella Vaccines (1 of 2 - 13+ 2-dose series) 1996 Mammogram 2023 Alcohol/Substance Use Screening 10/19/2024 Depression Screening and Follow-Up 10/19/2024 Social Drivers of Health Annual Screening 10/19/2024 Influenza Vaccine (#1) 2025 9, 08/27/2017, 07/17/2016, Additional history exists COVID-19 Vaccine ( season) 2025 04/05/2021, 03/08/2021 Diabetes Screening 04/27/2028 04/27/2025, 0 12/17/2024, 09/27/2024, Additional history exists DTaP,Tdap,and Td Vaccines (3 - Td or Tdap) 02/04/2034 02/05/2024, 07/17/2016 Hepatitis B Vaccines Completed 08/12/2023, 04/15/2023, 07/21/2019 HIV Screening Completed 12/12/2024, 11/20, 04/16/2023 Pneumococcal Vaccine: Pediatric (0-5 Years) and At-Risk Patients (6-50 Years) Aged Out No longer eligible based on patient's age to complete this topic Procedures * Due to [facility] law, this organization might not be sharing negative HIV tests. Procedure Name Priority Date/Time Associated Diagnosis Comments TISSUE EXAM Routine 06/27/2025 5:23 PM EDT Transgender Gender dysphoria UNLISTED PROCEDURE, TRACHEA, BRONCHI 06/27/2025 4:19 PM EDT Transgender Gender dysphoria Special Needs from Last 3 Months Results * Due to [place] [employer] law, this organization might not be sharing negative HIV tests. * Tissue Exam (06/27/2025 5:23 PM EDT) Final Diagnosis Tracheal Shave: - Fragments of cartilage and fibrous tissue, no specific pathologic change. [facility] MANUAL 06/29/2025 2:00 PM EDT [facility] at 1400 EDT Clinical History Pre-op diagnosis: Transgender [Z78.9] Gender dysphoria [F64.9] [facility] MANUAL 06/29/2025 2:00 PM EDT [facility] Gross Description 1. Soft Tissue, Other The specimen is received in formalin, labeled with the patient's name, medical record number, date of , and tracheal shave . Received are multiple navarrete-white to brown irregular soft tissue fragments measuring, 2.1 x 1.7 x 0.3 cm in aggregate. The specimen is filtered and submitted in toto in cassette 1A. [facility] MANUAL 06/29/2025 2:00 PM EDT [facility] Gross Description User Grossing complete by Romi Mariano on 06/28/2025 10:42 AM [facility] MANUAL 06/29/2025 2:00 PM T [facility] Embedded Images [facility] MANUAL 06/29/2025 2:00 PM EDT [facility] Resulting Agency Case was signed out at [facility], Department of Pathology, [employer] 3 CLIA [id number] [facility] MANUAL 06/29/2025 2:00 PM EDT [facility] Report Header Surgical Pathology Report Case: [id number] Authorizing Provider: Shaunna Sosa MD Collected: 06/27/2025 1723 Ordering Location: [facility] Received: 06/28/[address] [place] [address] Operating Room Pathologist: Keiko Pruett MD Specimen: Soft Tissue, Other, Trachea - Tracheal Shave 06/29/2025 2:00 PM EDT [facility] Tissue Soft tissue / Unknown 06/27/2025 5:23 PM EDT 06/28/2025 8:47 AM EDT Comment:Pre-op diagnosis: Transgender [Z78.9] Gender dysphoria [F64.9] us Shaunna Sosa MD LAB PATHOLOGY/CYTOLOGY BRINA DAVIS Final Result [facility] [address] [place] [address] ANATOM[facility] PATHOLOGY LAB[facility] [address] [place] [address], from Last [address] [place] [address] SHASHI GONCALVES [id number] Advance Directives * Full Code (Latest Code Status on File) Date Activated Date Inactivated Comments 06/27/2025 1:45 PM 06/27/2025 9:28 PM Healthcare Agents on File Name Relationship Healthcare Agent Relationshi p Communication Jose Alves Supervisor Hydrochloric Area Next of Kin [phone] (Edda vaca) Care Teams Inspector Subassemblies Relationship Specialty Start Date End Date Sudha Richardson [address] [place] [address] PCP - General Family Medicine 09/07/24
--- OUTSIDE RECORDS SUMMARY | 2025-09-20 15:03 | XMS_ITS | Encounter Summary ---
Author Organization [employer] Address [address] [place] [address] 7t [place] [address] Care Team Providers Care Real Time Analyst Name Role Phone Sudha Richardson MD Primary Care Provider +1- [phone] Matthew Woods MD Unavailable Encounter Details Date Type Department Care Team (Late st Contact Info) Description 05/07/2023 Orders Only [facility] [address] [place] [address] Sudha Richardson MD 230 [place], [place] [phone] Gender dysphoria in adult Social History Tobacco [...] Description 10/04/2025 2:00 PM EST Office Visit [facility] [address] [place] [address] Sudha Richardson MD 230 [place] [address] 11/20/2025 3:30 PM EST Clinical Support [facility] [address] [place] [address] Roberta Mckeon, CHARLA [address] [place] [address] documented as of this encounter Visit Diagnoses Diagnosis Gender dysphoria in adult documented in this encounter Additional Health Concerns Assessment Noted Time PHQ-9 Depression Total Score: 0 12/26/19 23 2:59 PM EST documented as of this encounter Care Teams Real Time Analyst Relationship Specialty Start Date End Date Sudha Richardson MD [address] [place] [address] PCP - General Family Medicine 10/19/18 Matthew Woods MD [address] [place] [address] Drive [address] [place] [address] Pain Medicine 09/21/24 Stephanie Rice MD [address] [facility] 8th Floor, [address] [place] [address] Plastic Surgery 12/22/24 documented as of this encounter
--- OUTSIDE RECORDS SUMMARY | 2025-09-20 15:03 | XMS_ITS | Encounter Summary ---
Author Organization [employer] Address [address] [facility] 7t [place] [address] Care Team Providers Care Dirt Shoveler Name Role Phone Sudha Richardson MD Primary Care Provider +1- [phone] Matthew Woods MD Unavailable Encounter Details Date Type Department Care Team (Late st Contact Info) Description 11/06/2023 Telephone [facility] 230 [place] [address] Sudha Richardson MD 230 [place], [place] [phone] Social History Tobacco Use Types Packs/Day Years [...] Description 10/04/2025 2:00 PM EST Office Visit [facility] [address] [place] [address] Sudha Richardson MD 230 [place] [address] 11/20/2025 3:30 PM EST Clinical Support [facility]ITION [address] [place] [address] 230 [place] [address] documented as of this encounter Visit Diagnoses Not on filedocumented in this encounter Additional Health Concerns Assessment Noted Time PHQ-9 Depression Total Score: 0 12/26/19 23 2:59 PM EST documented as of this encounter Care Teams Dirt Shoveler Relationship Specialty Start Date End Date Sudha Richardson MD [address] [place] [address] PCP - General Family Medicine 10/19/18 Matthew Woods MD [address] [place] [address] Pain Medicine 09/21/24 Stephanie Rice MD [address] [place] [address] 8th Floor, [address] [place] [address] Plastic Surgery 12/22/24 documented as of this encounter
--- OUTSIDE RECORDS SUMMARY | 2025-09-20 15:03 | XMS_ITS | Encounter Summary ---
Author Organization [employer] Address [address] [facility] 7t [place] [address] Care Team Providers Care Eyelet Riveter Name Role Phone Sudha Richardson MD Primary Care Provider +1- [phone] Matthew Woods MD Unavailable Reason for Visit * Reason Comments Med Refill Encounter Details Date Type Department Care Team (Late st Contact Info) Description 05/06/2025 Refill [facility] 230 [place] [address] Sudha Richardson MD 230 [place] [address] Seasonal allergies Social History Tobacco Use Types [...] Description 10/04/2025 2:00 PM EST Office Visit [facility] [address] [place] [address] Sudha Richardson MD 230 [place] [address] 11/20/2025 3:30 PM EST Clinical Support [facility]NU[facility]ITION 230 [place] [address] 230 [place] [address] documented as of this encounter Visit Diagnoses Diagnosis Seasonal allergies Allergic rhinitis, cause unspecified documented in this encounter Additional Health Concerns Assessment Noted Time PHQ-9 Depression Total Score: 23 025 9:43 AM EDT documented as of this encounter Care Teams Eyelet Riveter Relationship Specialty Start Date End Date Sudha Richardson MD 230 [place] [address] PCP - General Family Medicine 10/19/18 Matthew Woods MD [address] [place] [address] Pain Medicine 09/21/24 Stephanie Rice MD [address] [place] [address] Floor, [address] [place] [address] Plastic Surgery 12/22/24 documented as of this encounter
--- OUTSIDE RECORDS SUMMARY | 2025-09-20 15:03 | XMS_ITS | Encounter Summary ---
Author Organization [facility] Address [address] [place] [address] Phone Care Team Providers Care Retirement Plan Counselor Name Role Phone Debra, Sudha Biswas MD Primary Care Provi ely Reason for Referral * Physical Therapy (Routine) - Closed Specialty Diagnoses / Procedures Referred By Contac t Referred To Contact Physical Therapy Diagnoses Pelvic floor dysfunction Stephanie Rice MD Phone: tel: fax: [facility] [address] [place] [address] Phone: tel: Referral ID Status Reason Start Date Expiration Date Visits Re quested Visits Authorized [id number] Closed 05/16/2019 08/18/2019 12 12 Encounter Details Date Type Department Care Team (Latest Contact Info) Description 05/16/2019 Transcribe Orders [facility] [address] [place] [address] Stephanie Rice MD [address] [facility] 8th Floor, [address] [place] [address] Pelvic floor dysfunction (Primary Dx) Social History [...] Primary documented in this encounter Care Teams Retirement Plan Counselor Relationship Specialty Start Date End Date F[place], Sudha Biswas MD [address] [place] [address] PCP - General Family Medicine 05/11/19 documented as of this encounter Additional Source Comments The information contained in this document represents components of the legal health record. It is not the complete legal health record.[facility]
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
--- OUTSIDE RECORDS SUMMARY | 2025-09-20 15:03 | XMS_ITS | Encounter Summary ---
Author Organization [employer] Address [address] [place] [address] 7t [place] [address] Care Team Providers Care General Accountant Name Role Phone Sudha Richardson MD Primary Care Provider +- [phone] Matthew Woods MD Unavailable Reason for Visit * Reason Comments Med Refill Encounter Details Date Type Department Care Team (Late st Contact Info) Description 01/23/2023 Refill [facility] 230 [place], [place] [phone] Sudha Richardson MD 230 [place], [place] [phone] Gender identity disorder of adulthood Social History [...] Description 10/04/2025 2:00 PM EST Office Visit [facility] 230 [place] [address] Sudha Richardson MD [address] [place] [address] 11/20/2025 3:30 PM EST Clinical Support [facility] 230 [place] [address] 230 [place] [address] documented as of this encounter Visit Diagnoses Diagnosis 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
--- OUTSIDE RECORDS SUMMARY | 2025-09-20 15:03 | XMS_ITS | Encounter Summary ---
Author Organization [employer] Address [address] [facility] 7t [place] [address] Care Team Providers Care Lining Cutter Name Role Phone Sudha Richardson MD Primary Care Provider +1- [phone] Matthew Woods MD Unavailable Reason for Visit * Reason Onset Date Comments Error 01/05/2024 Encounter Details Date Type Department Care Team ([facility] st Contact Info) Description 01/05/2024 Telephone [facility] 230 [place] [address] Sudha Richardson MD 230 [place] [address] Error Social History Tobacco Use Types Packs/Day [...] Description 10/04/2025 2:00 PM EST Office Visit [facility] [address] [place] [address] Sudha Richardson MD [address] [place] [address] 11/20/2025 3:30 PM EST Clinical Support [facility] DI[facility]NUTRITION [address] [place] [address] [place] [address] documented as of this encounter Visit Diagnoses Not on filedocumented in this encounter Additional Health Concerns Assessment Noted Time PHQ-9 Depression Total Score: 0 12/26/19 23 2:59 PM EST documented as of this encounter Care Teams Lining Cutter Relationship Specialty Start Date End Date Sudha Richardson MD [address] [place] [address] PCP - General Family Medicine 10/19/18 Matthew Woods MD [address] [place] [address] Pain Medicine 09/21/24 Stephanie Rice MD [address] [place] [address] 8th Floor, [address] [place] [address] Plastic Surgery 12/22/24 documented as of this encounter
--- OUTSIDE RECORDS SUMMARY | 2025-09-20 15:03 | XMS_ITS | Encounter Summary ---
Author Organization [employer] Address [address] [facility] 7t [place] [address] Care Team Providers Care Radio Operator Name Role Phone Sudha Richardson MD Primary Care Provider +1- [phone] Matthew Woods MD Unavailable Reason for Visit * Reason Comments Med Refill Encounter Details Date Type Department Care Team (Late st Contact Info) Description 03/26/2024 Refill [facility] 230 [place], [place] [phone] Sudha Richardson MD 230 [place], [place] [phone] Urinary incontinence, unspecified type Social History Tobacco [...] 2:00 PM EST Office Visit [facility] [address] [place] [address] Sudha Richardson MD 230 [place] [address] 11/20/2025 3:30 PM EST Clinical Support [facility] DI[facility]ET[facility]/NUTRITION [address] [place] [address] [place] [address] documented as of this encounter Visit Diagnoses Diagnosis Urinary incontinence, unspecified type documented in this encounter Additional Health Concerns Assessment Noted Time PHQ-9 Depression Total Score: 0 12/26/19 23 2:59 PM EST documented as of this encounter Care Teams Radio Operator Relationship Specialty Start Date End Date Sudha Richardson MD [address] [place] [address] PCP - General Family Medicine 10/19/18 Matthew Woods MD [address] [place] [address] Pain Medicine 09/21/24 Stephanie Rice MD [address] [place] [address] 8th Floor, [address] [place] [address] Plastic Surgery 12/22/24 documented as of this encounter
--- OUTSIDE RECORDS SUMMARY | 2025-09-20 15:03 | XMS_ITS | Encounter Summary ---
Author Organization [employer] Address [address] [facility] 7t [place] [address] Care Team Providers Care Health Care Sanitary Technician Name Role Phone Sudha Richardson MD Primary Care Provider +1- [phone] Matthew Woods MD Unavailable Encounter Details Date Type Department Care Team (Late st Contact Info) Description 08/31/2024 Orders Only [facility] MEDICINE [address] [place] [address] Sudha Richardson MD [address] [place], [place] [phone] Social History Tobacco Use Types Packs/Day Years [...] 2:00 PM EST Office Visit [facility] MEDICINE [address] [place] [address] Sudha Richardson MD [address] [place] [address] 11/20/2025 3:30 PM EST Clinical Support [facility] DIABETES/NUTRITION [address] [place] [address] [place] [address] documented as of this encounter Visit Diagnoses Not on filedocumented in this encounter Additional Health Concerns Assessment Noted Time PHQ-9 Depression Total Score: 24 024 9:39 AM EDT documented as of this encounter Care Teams Health Care Sanitary Technician Relationship Specialty Start Date End Date Sudha Richardson MD [address] [place] [address] PCP - General Family Medicine 10/19/18 Matthew Woods MD [address] [place] [address] Pain Medicine 09/21/24 Stephanie Rice MD [address] [facility] 8th Floor, [address] [place] [address] Plastic Surgery 12/22/24 documented as of this encounter
--- OUTSIDE RECORDS SUMMARY | 2025-09-20 15:03 | XMS_ITS | Encounter Summary ---
Author Organization [employer] Address [address] [place] [address] 7t [place] [address] Care Team Providers Care Professor Of Anthropology Name Role Phone Sudha Richardson MD Primary Care Provider +1- [phone] Matthew Woods MD Unavailable Encounter Details Date Type Department Care Team (Late st Contact Info) Description 04/22/2023 Orders Only [facility] MEDICINE [address] [place] [address] Sudha Richardson MD 230 [place], [place] [phone] Gender identity disorder of adulthood (Primary Dx) [...] Description 10/04/2025 2:00 PM EST Office Visit [facility] MEDICINE [address] [place] [address] Sudha Richardson MD [address] [place] [address] 11/20/2025 3:30 PM EST Clinical Support [facility] DIABETES/NUTRITION [address] [place] [address] Roberta Mckeon, RD [address] [place] [address] Scheduled Orders Name Type Priority Associated Diagnoses [...] documented as of this encounter Care Teams Professor Of Anthropology Relationship Specialty Start Date End Date Sudha Richardson MD [address] [place] [address] PCP - General Family Medicine 10/19/18 Matthew Woods MD [address] [place] [address] Drive [address] [place] [address] Pain Medicine 09/21/24 Stephanie Rice MD [address] [place] [address] 8th Floor, [address] [place] [address] Plastic Surgery 12/22/24 documented as of this encounter
--- OUTSIDE RECORDS SUMMARY | 2025-09-20 15:03 | XMS_ITS | Encounter Summary ---
Author Organization [employer] Address [address] [place] [address] 7t [place] [address] Care Team Providers Care Roofer Gypsum Name Role Phone Sudha Richardson MD Primary Care Provider +1- [phone] Matthew Woods MD Unavailable Reason for Visit * Reason Onset Date Comments Durable Medical Equipment 05/20/2023 Encounter Details Date Type Department Care Team (Late st Contact Info) Description 05/20/2023 Telephone [facility] MEDICINE [address] [place], [place] [phone] Sudha Richardson MD [address] [place] [address] Durable Medical Equipment Social History Tobacco Use [...] Description 10/04/2025 2:00 PM EST Office Visit [facility] MEDICINE [address] [place] [address] Sudha Richardson MD [address] [place] [address] 11/20/2025 3:30 PM EST Clinical Support [facility] DIABETES/NUTRITION [address] [place] [address] [place] [address] documented as of this encounter Visit Diagnoses Not on filedocumented in this encounter Additional Health Concerns Assessment Noted Time PHQ-9 Depression Total Score: 0 12/26/19 23 2:59 PM EST documented as of this encounter Care Teams Roofer Gypsum Relationship Specialty Start Date End Date Sudha Richardson MD [address] [place] [address] PCP - General Family Medicine 10/19/18 Matthew Woods MD [address] [place] [address] Drive [address] [place] [address] Pain Medicine 09/21/24 Stephanie Rice MD [address] [place] [address] 8th Floor, [address] [place] [address] Plastic Surgery 12/22/24 documented as of this encounter
--- OUTSIDE RECORDS SUMMARY | 2025-09-20 15:03 | XMS_ITS | Encounter Summary ---
Author Organization [employer] Address [address] [facility] 7t [place] [address] Care Team Providers Care Access Tech Name Role Phone Debra, Sudha FROST Primary Care Provider +- [phone] Matthew Woods MD Unavailable Encounter Details Date Type Department Care Team ([facility] Contact Info) Description 11/17/2022 Orders Only [facility] MEDICINE [address] [place] [address] Grabiel Sanders MD [address] [place] [address] Social History Tobacco Use Types Packs/Day Years [...] Upcoming Encounters Date Type Department Care Team ([facility] Contact Info) Description 10/04/2025 2:00 PM EST Office Visit [facility] MEDICINE [address] [place] [address] Sudha Richardson MD 230 [place] [address] 11/20/2025 3:30 PM EST Clinical Support [facility] DIABETES/NUTRITION [address] [place] [address] Roberta Mckeon, CHARLA [address] [place] [address] documented as of this encounter Procedures Procedure Name Priority Date/Time Associated Diagnosis Comments XR CHEST 2 VIEWS Routine 11/27/2022 3:16 PM EST documented in this encounter Results * XR Chest 2 Views (11/27/2022 3:16 PM EST) Anatomical Region Laterality Modality Chest Radiographic Kym ging 11/27/2022 3:16 PM EST Narrative 12/03/2022 11:47 AM EST [facility] [address] [place] [address] XRay Report Signed Patient: Cherri Booth MR #: [id number] : 1985 Acct:[id number] Age/Sex: 37 / F ADM Date: 11/27/22 Loc: [facility] Attending Dr: Grabiel Sanders MD Ordering Physician: Grabiel Sanders MD Date of Service: 11/27/22 Procedure(s): XR chest 2V Accession Number(s): [id number] cc: Grabiel Sanders MD EXAMINATION: XR CHEST [...] OV> 12/03/22 1144 DD/ 1516 TD/TT: Director Of Outpatient Services: LAVELLE Procedure Note Donotuseinterpreter, Image - 12/03/2022 [facility] [address] [place] [address] XRay Report Signed Patient: Cherri BoothMR #: [id number] : 1985Acct:[id number] Age/Sex: 37 / FADM Date: 11/27/22 Loc: HO.XRAY Attending Dr: Grabiel Sanders MD Ordering Physician: Grabiel Sanders MD Date of Service: 11/27/22 Procedure(s): XR chest 2V Accession Number(s): [id number] cc: rGabiel Sanders MD EXAMINATION: XR CHEST 2 VIEWS [...] MD Signed By: <Electronically signed by Julius cA MD in OV> 12/03/22 1144 DD/ 1516 TD/TT: Director Of Outpatient Services: LAVELLE [employer] External Provider IMG XR PROCEDURES Edited Result - Final documented in this encounter Visit Diagnoses Not on filedocumented in this encounter Care Teams Access Tech Relationship Specialty Start Date End Date Sudha Richardson MD [address] [place] [address] PCP - General Family Medicine 10/19/18 Matthew Woods MD [address] [place] [address] Pain Medicine 09/21/24 Stephanie Rice MD [address] [place] [address] 8th Floor, [address] [place] [address] Plastic Surgery 12/22/24 documented as of this encounter
--- OUTSIDE RECORDS SUMMARY | 2025-09-20 15:04 | XMS_ITS | Clinical Summary ---
Author Organization [facility] Address [address] [place] [address] Phone Care Team Providers Care Clerical Support Specialist Name Role Phone Sudha Richardson MD [...] Devices Not on file Insurance [facility] [employer] MEDICARE REPLACEMENT MEDICARE PART A & B [facility] [employer] [employer] MEDICARE REPLACEMENT MEDICARE PART A & B MEDICARE REPLACEMENT MEDICARE REPLACEMENT MEDICARE REPLACEMENT MEDICARE PART A & B CARE MEDICARE REPLACEMENT MEDICARE PART A & B Member Subscriber Plan / Payer (Ef fective 2003-Present) Name:Cherri Ruth Member ID:[id number] Relation to Subscriber:Self Name:Cherri Ruth Subscriber ID:[id number] Payer ID:[id number] Group ID:Not on file Type:Medicare Address: [facility] [employer] [facility] [address] [place] [address] MEDICARE PART A & B MEDICARE PART A & B Care Teams Clerical Support Specialist Relationship Specialty Start Date End Date [place], Sudha Biswas MD [address] [place] [address] PCP - General Family Medicine 05/11/19 Additional Source Comments The information contained in this document represents components of the legal health record. It is not the complete legal health record.[facility]
== END 2025-09-20 13:11 | disposition home or self-care (01) ==
LOC: HO.PMC 12:48
PROVIDERS: PCP Family Medicine; Visit Provider Anesthesiology
DX: M43.06 Spondylolysis, lumbar region (principal); M17.0 Bilateral primary osteoarthritis of knee; M17.11 Unilateral primary osteoarthritis, right knee; M25.561 Pain in right knee
CPT/HCPCS: 99213

== ENCOUNTER → 2025-09-20 12:48 | Outpatient (BNVA) | payer OTHER, SELFPAY | PROVIDERS: PCP Family Medicine; Visit Provider Anesthesiology | DX: M43.06 Spondylolysis, lumbar region (principal); M17.0 Bilateral primary osteoarthritis of knee | CPT/HCPCS: 99212 ==

== ENCOUNTER 2025-09-30 12:23 | Emergency (ER) | payer OTHER, SELFPAY ==
--- OUTSIDE RECORDS SUMMARY | 2025-09-27 15:00 | XMS_ITS | Encounter Summary ---
Author Organization [employer] Address [address] [facility] 7t [place] [address] Care Team Providers Care Washer Off Name Role Phone Sudha Richardson MD Primary Care Provider +1- [phone] Matthew Woods MD Unavailable Reason for Visit * Reason Comments Headache Congested,dizzy Encounter Details Date Type Department Care Team (Late st Contact Info) Description 09/27/2025 3:00 PM EST Office Visit [facility] [address] [place] [address] Viral syndrome Social History Tobacco Use Types Packs/Day Years [...] Sign Reading Time Taken Comments Blood Pressure 130/88 09/27/2025 2:54 PM EST Pulse 70 09/27/2025 2:54 PM EST Temperature 36.2 C (97.1 F) 09/27/2025 2:54 PM EST Respiratory Rate 18 09/27/2025 2:54 PM EST Oxygen Saturation 97% 09/27/2025 2:54 PM EST Inhaled Oxygen Concentration - - Weight 94.3 kg (207 lb 12.8 oz) 09/27/2025 2:54 PM EST Height 170.2 cm (5' 7 ) 09/27/2025 2:54 PM EST Body Mass Index 32.55 09/27/2025 2:54 PM EST documented in this encounter Plan of Treatment Upcoming Encounters Date Type Department Care Team (Late st Contact Info) Description 10/04/2025 2:00 PM EST Office Visit [facility] MEDICINE [address] [place] [address] Sudha Richardson MD [address] [place] [address] 11/20/2025 3:30 PM EST Clinical Support [facility] DIABETES/NUTRITION [address] [place] [address] [place] [address] documented as of this encounter Procedures Procedure Name Priority Date/Time Associated Diagnosis Comments POCT INFLUENZA B (ID NOW RAPID MOLECULAR) Routine 09/27/2025 3:05 PM EST Viral syndrome POCT INFLUENZA A (ID NOW RAPID MOLECULAR) Routine 09/27/2025 3:05 PM EST Viral syndrome POCT RAPID COVID ANTIGEN Routine 09/27/2025 3:03 PM EST Viral syndrome documented in this encounter Results * POCT Rapid Influenza B GRIFFIN ID NOW (09/27/2025 3:05 PM EST) Influenza B Negative Negative, Indeterminate [facility] QC Media Lot # [id number] [facility] Lot# Expiration Date ,126 [facility] Swab 09/27/2025 3:05 PM EST Esther Mancusom MECHANICAL MANUFACTURING TECHNICIAN POINT OF CARE TEST ENTER/EDIT O RDERABLES Final Result Performing Organization Address City/[facility]/ZIP Co de Phone Number [facility] [address] [place] [phone] * POCT Rapid Influenza A GRIFFIN ID NOW (09/27/2025 3:05 PM EST) Influenza A Negative Negative, Indeterminate [facility] QC Media Lot # [id number] [facility] Lot# Expiration Date ,126 [facility] Swab 09/27/2025 3:05 PM EST us Esther Appram MECHANICAL MANUFACTURING TECHNICIAN POINT OF CARE TEST ENTER/EDIT O RDERABLES Final Result Performing Organization Address City/[facility]/ZIP Co de Phone Number [facility] [address] [place] [phone] * POCT Rapid Covid-19 BinaxNOW (09/27/2025 3:03 PM EST) Rapid COVID Ag Negative QC Media Lot # [id number] Lot# Expiration Date [id number] Swab 09/27/2025 3:03 PM EST Esther Galeano MECHANICAL MANUFACTURING TECHNICIAN POINT OF CARE TEST ENTER/EDIT O RDERABLES Final Result documented in this encounter Visit Diagnoses Diagnosis Viral syndrome Unspecified viral infection, in conditions classified elsewhere and of unspecified site documented in this encounter Additional Health Concerns Assessment Noted Time PHQ-9 Depression Total Score: 23 025 9:43 AM EDT documented as of this encounter Care Teams Washer Off Relationship Specialty Start Date End Date Sudha Richardson MD [address] [place] [address] PCP - General Family Medicine 10/19/18 Matthew Woods MD [address] [place] [address] [address] [place] [address] Pain Medicine 09/21/24 Stephanie Rice MD [address] [facility] 8th Floor, [address] [place] [address] Plastic Surgery 12/22/24 documented as of this encounter
[2025-09-30 12:41] VITALS: BP 152/103; PULSE 81; RESP 16; TEMP 36.2; O2SAT 99; BMI 31.6
--- NOTE | 2025-09-30 12:45 | ED_ITS ---
HPI - Back Pain/Injury General Chief Complaint: Medical Clearance Stated Complaint: med refill Time Seen by Provider: 09/30/25 12:51 Source: patient, RN notes reviewed and old records reviewed Mode of arrival: ambulatory Limitations: no limitations History of Present Illness ED Provider: Maylin Lucas PA-C HPI Narrative: ? Arleth presents to the ED today because she has significant chronic pain and has run out of her oxycodone 5 mg tablets (prescribed TID). ? She took her last dose this morning (was due for a refill today, 09/30). ? [facility] on [facility] reported they never received the electronic refill order and will not dispense without payment; patient therefore has no medication available. ? Patient spoke with Shelby from her pain management group yesterday (Thursday) who stated the prescription was sent. ? Patient usually takes oxycodone together with gabapentin (gabapentin supply is at home but she did not take it today because she takes both together). ? She reports chronic back, bone, knee pain with intermittent numbness in legs and hands, making ambulation difficult. ? Denies any new trauma or new injury. ? Requests a short supply (4 pills) to bridge until the pharmacy receives the prescription; provider will send 6 pills to [facility]. Review of Systems: Musculoskeletal: Positive for chronic back, bone, and knee pain. Neurologic: Positive for intermittent numbness in legs and hands. General: Positive for pain. Denies recent trauma or injury. Related Data Home Medications ?Medication ?Instructions ?Recorded ?Confirmed melatonin 5 mg capsule 5 mg PO .hs 02/13/21 5 oxybutynin chloride 10 mg 10 mg PO DAILY 03/13/2102/16 tablet,extended release 24 hr duloxetine 30 mg capsule,delayed 30 mg PO DAILY 02/28/25 release aripiprazole 2 mg tablet 2 mg PO DAILY 07/15/2202/28 duloxetine 60 mg capsule,delayed 60 mg PO DAILY 02/28/25 release multivitamin 1 tab PO DAILY 07/15/2202/16 aripiprazole 5 mg tablet 5 mg PO DAILY 09/09/2202/28 doxycycline monohydrate 100 mg 100 mg PO BID 09/09/22 02/28/25 capsule melatonin 5 mg tablet 5 mg PO BEDTIME 10/10/22 testosterone 1.62 % (20.25 mg/1.25 0 mg topical 02/28/25 gram) transdermal gel packet cetirizine 10 mg tablet 10 mg PO DAILY 02/09/2302/16 testosterone 0 mg topical 02/09/23 cariprazine 1.5 mg capsule 1.5 mg PO DAILY 04/13/23 (Vraylar) cariprazine 3 mg capsule (Vraylar) 3 mg PO DAILY 08/0302/28/25 clindamycin phosphate 1 % topical 1 appl topical BID 1 12/02/22 02/28/25 gel cholecalciferol (vitamin D3) 25 25 mcg PO DAILY 02/28/25 mcg (1,000 unit) tablet estradiol valerate 20 mg/mL mg IM 11/17/24 02/28/25 intramuscular oil Previous Rx's ?Medication ?Instructions ?Recorded ibuprofen 600 mg tablet 600 mg PO Q6H PRN pain #20 t abs 04/17/21 diclofenac sodium 1 % topical gel 2 g topical TID PRN Pain, Moderate 06/08/23 (Voltaren Arthritis Pain) #100 grams polyethylene glycol 3350 17 gram 17 g PO DAILY PRN for constipation 10/30/23 oral powder packet #30 ea lidocaine 5 % topical patch 1 patch topical DAILY #30 ea 02/18/24 gabapentin 100 mg capsule 300 mg (3 x 100 mg) PO BID f or 02/09/25 pain 30 days #180 caps naloxone 4 mg/actuation nasal 4 mg intranasal Q2M PRN opioid 02/09/25 spray (Narcan) overdose #2 ea oxycodone 5 mg tablet 5 mg PO TID PRN pain 30 days #90 10/18/25 tabs Allergies Allergy/AdvReac Type Severity Reaction Status Date / Time cockroach Allergy Rash Verified 10/18/25 13:47 feathers Allergy Rash Verified 10/18/25 13:47 Review of Systems Review of Systems: Yes all other systems are reviewed and are negative PMFSH Past Medical History Attestation statement: The following information was validated with the patient. 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 No septic or ill-appearing. Vitals reviewed normal, PMH/Social and Surgical hx reviewed including allergies and current medications. - reviewed for prior visits here Head: Normocephalic, no abnormal lesions noted. Eyes: EOMI. ENMT: moist oral mucosa, no edematous nasal turbinates, erythema, or purulent d/c noted. No erythema, normal appearing and intact tympanic membrane. Hearing intact. No mastoid tenderness b/l. Normal posterior pharynx and structures. Uvula is midline no trismus. Neck: trachea midline, no lymphadenopathy. No nuchal rigidity. Cardiovascular: peripheral perfusion normal, S1 and S2 present, no M/R/G. RRR Respiratory: no respiratory distress, lungs clear to auscultation b/l, respirations full and symmetric. No flail chest, chest wall tenderness or crepitus noted. Speaking in full smooth sentences. Abdomen: nondistended, nontender Extremities: Warm and appear well perfused. Moving extremities without difficulty. no midline tenderness step offs or deformities or spine, no sciatic or GT tenderness no spasm, no deficit in ROM, - SLR b/l Psych: Cooperative, calm. Neuro: Alert and orientated. No obvious focal deficits. Vital Signs: Vital Signs: Last Vital Signs Temp 97.1 F 09/30/25 13:07 Pulse 81 09/30/25 13:07 Resp 16 09/30/25 13:07 BP 152/103 H 09/30/25 13:07 Pulse Ox 99 12/13/25 13:07 BMI result Body Mass Index 31.6 Course Course Course Narrative: This is a RME preformed in triage by Maylin Lucas PA-C. Date: 09/30/25, time 1247. Patient presents with chronic pain requesting rx for her pain medications as her medication refill was not sent, requesting until Thursday. take 5 oxycodone 5mg TID - will send . Work UP: Will defer full ROS and PE to treating provider. Patient will continued to be monitored in the interim. Medical Decision Making Medical Decision Making MDM Narrative: The patient presented with chronic pain (back, bone, knees) managed by a pain specialist, and reported running out of oxycodone due to a pharmacy refill issue. She denied any new trauma or injury, and her pain regimen includes gabapentin, which she did not take today as she typically takes both medications together. Given the absence of acute changes or new neurological deficits, and her established pain management plan with a scheduled pill count, a short bridge supply of oxycodone was provided to cover until her regular prescription is available. She was advised to follow up with her pain management provider and to return to the ED if her symptoms worsen or if she develops new neurological deficits. Patient presents with chronic pain and an acute gap in oxycodone therapy due to pharmacy refill issue. She requires a short bridge supply until her routine prescription is processed by her pain management provider. Problem #1: Chronic Pain ? Insufficient Medication Supply Assessment: Chronic back/bone/knee pain managed with oxycodone 5 mg TID and gabapentin. Patient out of oxycodone; last dose taken this morning. No new injury. Plan: * e-prescribe oxycodone 5 mg tablets, qty 6, to [facility] ([facility]) to cover thro ugh Thursday. * Patient to follow up with pain management provider (Dr. Castro, [facility], [address]) regarding routine refill and ongoing management. * Return to ED for uncontrolled pain or new neurological deficits. Follow Up: As above; no additional problems addressed today. Additional Notes: Patient reports a scheduled pill count on October 18 as part of opioid management with her pain management provider. Differential Diagnosis Differential Diagnoses: The differential diagnosis associated with the presentation includes lumbago lumbar spasm HNP opiate dependence Admission/Observation Consideration of admission/observation: Escalation of care including admission/observation considered Patient would have been admitted to the hospital had her work up had any findings where hospital admission was appropriate and her clinical presentation warranted hospital admission. Tests considered The following testing was considered but not selected: Would have considered labs/ imaging if any red flags, acute sxs or injury Prescription Management I considered prescription management with: Pain Medication Chronic Conditions Patient?s care impacted by: Other Social Determinants Patient?s care significantly limited by Social Determinants of Health including: Alcoholism and drug addiction in family and Other Social Determinant of Health Discharge Plan Discharge Clinical Impression: Fibromyalgia, Chronic pain syndrome under treatment with controlled substance agreement Patient Disposition: Home, Self-Care Instructions: Chronic Pain (ED) Additional Instructions: Patient presents with chronic pain and an acute gap in oxycodone therapy due to pharmacy refill issue. She requires a short bridge supply until her routine prescription is processed by her pain management provider. Problem #1: Chronic Pain ? Insufficient Medication Supply Assessment: Chronic back/bone/knee pain managed with oxycodone 5 mg TID and gabapentin. Patient out of oxycodone; last dose taken this morning. No new injury. Plan: * e-prescribe oxycodone 5 mg tablets, qty 6, to [facility]) to cover through Thursday. * Patient to follow up with pain management provider (Dr. Castro, [facility], [address]) regarding routine refill and ongoing management. * Return to ED for uncontrolled pain or new neurological deficits. Follow Up: As above; no additional problems addressed today. Additional Notes: Patient reports a scheduled pill count on October 18 as part of opioid management with her pain management provider. Prescriptions: No Action ibuprofen 600 mg tablet 600 mg PO Q6H PRN (Reason: pain) Qty: 20 0RF lidocaine 5 % adhesive patch,medicated 1 patch topical DAILY Qty: 30 0RF Rx Instructions: leave on most painful area for up to 12 hrs melatonin 5 mg capsule 5 mg PO .hs oxybutynin chloride 10 mg tablet extended release 24hr 10 mg PO DAILY multivitamin Tablet 1 tab PO DAILY aripiprazole 2 mg tablet 2 mg PO DAILY duloxetine 60 mg capsule,delayed release(DR/EC) 60 mg PO DAILY melatonin 5 mg tablet 5 mg PO BEDTIME duloxetine 30 mg capsule,delayed release(DR/EC) 30 mg PO DAILY aripiprazole 5 mg tablet 5 mg PO DAILY doxycycline monohydrate 100 mg capsule 100 mg PO BID Vraylar 1.5 mg capsule 1.5 mg PO DAILY diclofenac sodium [Voltaren Arthritis Pain] 1 % gel 2 g topical TID PRN (Reason: Pain, Moderate) Qty: 100 3RF Rx Instructions: apply to single elbow, wrist or hand; for hand includes palm/fingers/back of hand Vraylar 3 mg capsule 3 mg PO DAILY clindamycin phosphate 1 % gel 1 appl topical BID polyethylene glycol 3350 17 gram powder in packet 17 g PO DAILY PRN (Reason: for constipation) Qty: 30 3RF naloxone [Narcan] 4 mg/actuation spray,non-aerosol 4 mg intranasal Q2M PRN (Reason: opioid overdose) Qty: 2 0RF Rx Instructions: spray 1 dose into ONE nostril; alternate nostrils w each dose until help arrives gabapentin 100 mg capsule 300 mg PO BID 30 Days Qty: 180 8RF oxycodone 5 mg tablet 5 mg PO TID PRN (Reason: pain) 30 Days Qty: 90 0RF Rx Instructions: Partial Fill upon patient request. testosterone 1.62 % (20.25 mg/1.25 gram) gel in packet 0 mg topical cetirizine 10 mg tablet 10 mg PO DAILY testosterone 20.25 mg/1.25 gram (1.62 %) gel in metered-dose pump 0 mg topical cholecalciferol (vitamin D3) 25 mcg (1,000 unit) tablet 25 mcg PO DAILY estradiol valerate 20 mg/mL oil IM Referrals: Sudha Richardson MD [Primary Care Provider, Family Practice] Interventions: ED Discharge Assessment Last Done: 09/30/25 13:07 Discharge Date/Time: 09/30/25 13:08 Print Language: Other
--- OUTSIDE RECORDS SUMMARY | 2025-09-30 12:55 | XMS_ITS | Encounter Summary ---
Author Organization [employer] Address [address] [facility] 7t [place] [address] Care Team Providers Care Package Sealer Name Role Phone Sudha Richardson MD Primary Care Provider +1- [phone] Matthew Woods MD Unavailable Encounter Details Date Type Department Care Team (Latest Contact Info) Description 09/27/2025 Travel Social History Tobacco Use Types Packs/Day Years Used Date Smoking Tobacco: Former Cigarettes Passive Smoke Exposure: Current Smokeless Tobacco: Former Quit: 12/18/2023 Alcohol Use Standard Drinks/Week Comments Never 0 (1 standard drink = 0.6 oz pur e alcohol) Depression Answer Date Recorded Patient Health Questionnaire-9 Score 04/27/2025 Patient Health Questionnaire-9 Score 23 04/27/2025 [...] Description 10/04/2025 2:00 PM EST Office Visit [facility] MEDICINE [address] [place] [address] Sudha Richardson MD [address] [place] [address] 11/20/2025 3:30 PM EST Clinical Support [facility] DIABETES/NUTRITION [address] [place] [address] [place] [address] documented as of this encounter Visit Diagnoses Not on filedocumented in this encounter Additional Health Concerns Assessment Noted Time PHQ-9 Depression Total Score: 23 025 9:43 AM EDT documented as of this encounter Care Teams Package Sealer Relationship Specialty Start Date End Date Sudha Richardson MD [address] [place] [address] PCP - General Family Medicine 10/19/18 Matthew Woods MD [address] [place] [address] Pain Medicine 09/21/24 Stephanie Rice MD [address] [place] [address] 8th Floor, [address] [place] [address] Plastic Surgery 12/22/24 documented as of this encounter
--- OUTSIDE RECORDS SUMMARY | 2025-09-30 12:56 | XMS_ITS | Encounter Summary ---
Author Organization [employer] Address [address] [facility] 7t [place] [address] Care Team Providers Care Office Machinery Or Equipment Installer Name Role Phone [place], Sudha FROST Primary Care Provider +- [phone] Matthew Woods MD Unavailable Encounter Details Date Type Department Care Team ([facility] Contact Info) Description 11/17/2022 Orders Only [facility] MEDICINE [address] [place] [address] Grabiel Sanders MD [address] [place] [address] Social History Tobacco Use Types Packs/Day Years [...] Upcoming Encounters Date Type Department Care Team ([facility] Contact Info) Description 10/04/2025 2:00 PM EST Office Visit [facility] MEDICINE [address] [place] [address] Sudha Richardson MD [address] [place] [address] 11/20/2025 3:30 PM EST Clinical Support [facility] DIABETES/NUTRITION [address] [place] [address] Roberta Mckeon, CHARLA [address] [place] [address] documented as of this encounter Procedures Procedure Name Priority Date/Time Associated Diagnosis Comments XR CHEST 2 VIEWS Routine 11/27/2022 3:16 PM EST documented in this encounter Results * XR Chest 2 Views (11/27/2022 3:16 PM EST) Anatomical Region Laterality Modality Chest Radiographic Kym ging 11/27/2022 3:16 PM EST Narrative 12/03/2022 11:47 AM EST [facility] [address] [place] [address] XRay Report Signed Patient: Cherri Booth MR #: [id number] : 1985 Acct:[id number] Age/Sex: 37 / F ADM Date: 11/27/22 Loc: [facility] Attending Dr: Grabiel Sanders MD Ordering Physician: Grabiel Sanders MD Date of Service: 11/27/22 Procedure(s): XR chest 2V Accession Number(s): [id number] cc: Grabiel Sanders MD EXAMINATION: XR CHEST [...] in OV> 12/03/22 1144 DD/ 1516 TD/TT: Wrapper Dipper: LAVELLE Procedure Note Donotuseinterpreter, Image - 12/03/2022 [facility] [address] [place] [address] XRay Report Signed Patient: Cherri BoothMR #: [id number] : 1985Acct:[id number] Age/Sex: 37 / FADM Date: 11/27/22 Loc: HO.XRAY Attending Dr: Grabiel Sanders MD Ordering Physician: Grabiel Sanders MD Date of Service: 11/27/22 Procedure(s): XR chest 2V Accession Number(s): [id number] cc: Grabiel Sanders MD EXAMINATION: XR CHEST [...] in OV> 12/03/22 1144 DD/ 1516 TD/TT: Wrapper Dipper: LAVELLE [facility] External Provider IMG XR PROCEDURES Edited Result - Final documented in this encounter Visit Diagnoses Not on filedocumented in this encounter Care Teams Office Machinery Or Equipment Installer Relationship Specialty Start Date End Date Sudha Richardson MD [address] [place] [address] PCP - General Family Medicine 10/19/18 Matthew Woods MD [address] [place] [address] Pain Medicine 09/21/24 Stephanie Rice MD [address] [place] [address] 8th Floor, [address] [place] [address] Plastic Surgery 12/22/24 documented as of this encounter
--- OUTSIDE RECORDS SUMMARY | 2025-09-30 12:56 | XMS_ITS | Encounter Summary ---
Author Organization [email or web address] Address [address] [facility] 7t [place] [address] Care Team Providers Care Movie Producer Name Role Phone Sudha Richardson MD Primary Care Provider +1- [phone] Matthew Woods MD Unavailable Encounter Details Date Type Department Care Team (Late st Contact Info) Description 11/06/2023 Telephone [facility] MEDICINE [address] [place] [address] Sudha Richardson MD [address] [place] [address] Social History Tobacco Use Types Packs/Day Years [...] Description 10/04/2025 2:00 PM EST Office Visit [facility] MEDICINE [address] [place] [address] Sudha Richardson MD [address] [place] [address] 11/20/2025 3:30 PM EST Clinical Support [facility] DIABETES/NUTRITION [address] [place] [address] [place] [address] documented as of this encounter Visit Diagnoses Not on filedocumented in this encounter Additional Health Concerns Assessment Noted Time PHQ-9 Depression Total Score: 0 12/26/19 23 2:59 PM EST documented as of this encounter Care Teams Movie Producer Relationship Specialty Start Date End Date Sudha Richardson MD [address] [place] [address] PCP - General Family Medicine 10/19/18 Matthew Woods MD [address] [place] [address] Pain Medicine 09/21/24 Stephanie Rice MD [address] [place] [address] 8th Floor, [address] [place] [address] Plastic Surgery 12/22/24 documented as of this encounter
--- OUTSIDE RECORDS SUMMARY | 2025-09-30 12:56 | XMS_ITS | Clinical Summary ---
Author Organization [facility] Address [address] [place] [address] Phone Care Team Providers Care Information Broker Name Role Phone Sudha Richardson MD Primary [...] topic Medical Devices Not on file Insurance [facility] ONE CARE MEDICARE REPLACEMENT MEDICARE PART A & B [facility] ONE CARE MEDICARE REPLACEMENT MEDICARE PART A & B MEDICARE REPLACEMENT MEDICARE REPLACEMENT MEDICARE REPLACEMENT MEDICARE PART A & B CARE MEDICARE REPLACEMENT MEDICARE PART A & B MEDICARE PART A & B MEDICARE PART A & B Care Teams Information Broker Relationship Specialty Start Date End Date [place], Sudha Biswas MD [address] [place] [address] PCP - General Family Medicine 05/11/19 Additional Source Comments The information contained in this document represents components of the legal health record. It is not the complete legal health record.[facility]
--- OUTSIDE RECORDS SUMMARY | 2025-09-30 12:56 | XMS_ITS | Encounter Summary ---
Author Organization [employer] Address [address] [place] [address] 7t [place] [address] Care Team Providers Care Patient Admitting Representative Name Role Phone Sudha Richardson MD Primary Care Provider +- [phone] Matthew Woods MD Unavailable Reason for Visit * Reason Comments Med Refill Encounter Details Date Type Department Care Team (Late st Contact Info) Description 01/23/2023 Refill [facility] MEDICINE [address] [place], [place] [phone] Sudha Richardson MD [address] [place], [place] [phone] Gender identity disorder of adulthood Social History [...] Description 10/04/2025 2:00 PM EST Office Visit [facility] MEDICINE [address] [place] [address] Sudha Richardson MD [address] [place] [address] 11/20/2025 3:30 PM EST Clinical Support [facility] DIABETES/NUTRITION [address] [place] [address] [place] [address] documented as of this encounter Visit Diagnoses Diagnosis 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 documented in this encounter Additional Health Concerns Assessment Noted Time PHQ-9 Depression Total Score: 0 12/26/19 23 2:59 PM EST documented as of this encounter Care Teams Patient Admitting Representative Relationship Specialty Start Date End Date Sudha Richardson MD [address] [place] [address] PCP - General Family Medicine 10/19/18 Matthew Woods MD [address] [place] [address] [address] [place] [address] Pain Medicine 09/21/24 Stephanie Rice MD [address] [place] [address] 8th Floor, [address] [place] [address] Plastic Surgery 12/22/24 documented as of this encounter
--- OUTSIDE RECORDS SUMMARY | 2025-09-30 12:56 | XMS_ITS | Encounter Summary ---
Author Organization [employer] Address [address] [facility] 7t [place] [address] Care Team Providers Care Station Engineer Main Line Name Role Phone [place], Sudha FROST Primary Care Provider +- [phone] Matthew Woods MD Unavailable Reason for Visit * Reason Comments Med Refill Encounter Details Date Type Department Care Team (Late st Contact Info) Description 01/06/2024 Refill [facility] MEDICINE [address] [place], [place] [phone] Atiya Alegria MD [address] [place], [place] [phone] Urinary incontinence, unspecified type Social History Tobacco [...] Description 10/04/2025 2:00 PM EST Office Visit [facility] MEDICINE [address] [place] [address] Sudha Richardson MD [address] [place] [address] 11/20/2025 3:30 PM EST Clinical Support [facility] DIABETES/NUTRITION [address] [place] [address] [place] [address] documented as of this encounter Visit Diagnoses Diagnosis Urinary incontinence, unspecified type documented in this encounter Additional Health Concerns Assessment Noted Time PHQ-9 Depression Total Score: 0 12/26/19 23 2:59 PM EST documented as of this encounter Care Teams Station Engineer Main Line Relationship Specialty Start Date End Date Sudha Richardson MD [address] [place] [address] PCP - General Family Medicine 10/19/18 Matthew Woods MD [address] [place] [address] Pain Medicine 09/21/24 Stephanie Rice MD [address] [place] [address] Floor, [address] [place] [address] Plastic Surgery 12/22/24 documented as of this encounter
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
--- OUTSIDE RECORDS SUMMARY | 2025-09-30 12:56 | XMS_ITS | Encounter Summary ---
Author Organization [employer] Address 75 [facility] 7t [place] [address] Care Team Providers Care Marketing Research Coordinator Name Role Phone Sudha Richardson MD Primary Care Provider +1- [phone] Matthew Woods MD Unavailable Reason for Visit * Reason Comments Med Refill Encounter Details Date Type Department Care Team (Late st Contact Info) Description 05/06/2025 Refill [facility] [address] [place] [address] Sudha Richardson MD [address] [place] [address] Seasonal allergies Social History Tobacco Use Types [...] Description 10/04/2025 2:00 PM EST Office Visit [facility] MEDICINE [address] [place] [address] Sudha Richardson MD [address] [place] [address] 11/20/2025 3:30 PM EST Clinical Support [facility] DIABETES/NUTRITION [address] [place] [address] [place] [address] documented as of this encounter Visit Diagnoses Diagnosis Seasonal allergies Allergic rhinitis, cause unspecified documented in this encounter Additional Health Concerns Assessment Noted Time PHQ-9 Depression Total Score: 23 025 9:43 AM EDT documented as of this encounter Care Teams Marketing Research Coordinator Relationship Specialty Start Date End Date Sudha Richardson MD [address] [place] [address] PCP - General Family Medicine 10/19/18 Matthew Woods MD [address] [place] [address] Pain Medicine 09/21/24 Stephanie Rice MD [address] [place] [address] Floor, [address] [place] [address] Plastic Surgery 12/22/24 documented as of this encounter
--- OUTSIDE RECORDS SUMMARY | 2025-09-30 12:56 | XMS_ITS | Encounter Summary ---
Author Organization [employer] Address 75 [facility] 7t [place] [address] Care Team Providers Care Financial Reporting Director Name Role Phone Sudha Richardson MD Primary Care Provider +1- [phone] Matthew Woods MD Unavailable Reason for Visit * Reason Onset Date Comments Error 01/05/2024 Encounter Details Date Type Department Care Team ([facility] st Contact Info) Description 01/05/2024 Telephone [facility] MEDICINE [address] [place] [address] Sudha Richardson MD [address] [place] [address] Error Social History Tobacco Use Types Packs/Day [...] Description 10/04/2025 2:00 PM EST Office Visit [facility] MEDICINE [address] [place] [address] Sudha Richardson MD [address] [place] [address] 11/20/2025 3:30 PM EST Clinical Support [facility] DIABETES/NUTRITION [address] [place] [address] [place] [address] documented as of this encounter Visit Diagnoses Not on filedocumented in this encounter Additional Health Concerns Assessment Noted Time PHQ-9 Depression Total Score: 0 12/26/19 23 2:59 PM EST documented as of this encounter Care Teams Financial Reporting Director Relationship Specialty Start Date End Date Sudha Richardson MD [address] [place] [address] PCP - General Family Medicine 10/19/18 Matthew Woods MD [address] [place] [address] Pain Medicine 09/21/24 Stephanie Rice MD [address] [place] [address] 8th Floor, [address] [place] [address] Plastic Surgery 12/22/24 documented as of this encounter
--- OUTSIDE RECORDS SUMMARY | 2025-09-30 12:56 | XMS_ITS | Encounter Summary ---
Author Organization [employer] Address 75 [facility] 7t [place] [address] Care Team Providers Care Director Presales Name Role Phone Sudha Richardson MD Primary Care Provider +1- [phone] Matthew Woods MD Unavailable Reason for Visit * Reason Onset Date Comments Referral 12/11/2022 Encounter Details Date Type Department Care Team (Late st Contact Info) Description 12/11/2022 Telephone [facility] MEDICINE [address] [place], [place] [phone] Sudha Richardson MD [address] [place] [address] Referral Social History Tobacco Use Types Packs/Day [...] Tc from pt requesting a referral to [facility] for an 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 Needs a written referral with details. Pt claims that without it, no process can be down. [facility] number is [phone] press number 2. Pt states that this is through moose coordinator for pt. Please contact pt [phone] documented in this encounter Plan of Treatment Upcoming Encounters Date Type Department Care Team (Late st Contact Info) Description 10/04/2025 2:00 PM EST Office Visit [facility] MEDICINE [address] [place] [address] Sudha Richardson MD [address] [place] [address] 11/20/2025 3:30 PM EST Clinical Support [facility] DIABETES/NUTRITION [address] [place] [address] [place] [address] documented as of this encounter Visit Diagnoses Not on filedocumented in this encounter Care Teams Director Presales Relationship Specialty Start Date End Date Sudha Richardson MD [address] [place] [address] PCP - General Family Medicine 10/19/18 Matthew Woods MD [address] [place] [address] Pain Medicine 09/21/24 Stephanie Rice MD [address] [place] [address] 8th Floor, [address] [place] [address] Plastic Surgery 12/22/24 documented as of this encounter
--- OUTSIDE RECORDS SUMMARY | 2025-09-30 12:56 | XMS_ITS | Encounter Summary ---
Author Organization [employer] Address [address] [place] [address] 7t [place] [address] Care Team Providers Care Medical Record Clerk Name Role Phone Sudha Richardson MD Primary Care Provider +1- [phone] Matthew Woods MD Unavailable Encounter Details Date Type Department Care Team (Late st Contact Info) Description 05/07/2023 Orders Only [facility] MEDICINE [address] [place] [address] Sudha Richardson MD [address] [place], [place] [phone] Gender dysphoria in adult Social History Tobacco [...] 10/04/2025 2:00 PM EST Office Visit [facility] MEDICINE [address] [place] [address] Sudha Richardson MD [address] [place] [address] 11/20/2025 3:30 PM EST Clinical Support [facility] DIABETES/NUTRITION [address] [place] [address] Roberta Mckeon, CHARLA [address] [place] [address] documented as of this encounter Visit Diagnoses Diagnosis Gender 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
--- OUTSIDE RECORDS SUMMARY | 2025-09-30 12:56 | XMS_ITS | Encounter Summary ---
Author Organization [employer] Address 75 [facility] 7t [place] [address] Care Team Providers Care Field Auto Appraiser Name Role Phone Sudha Richardson MD Primary Care Provider +1- [phone] Matthew Woods MD Unavailable Encounter Details Date Type Department Care Team (Late st Contact Info) Description 08/31/2024 Orders Only [facility] MEDICINE [address] [place] [address] Sudha Richardson MD [address] [place], [place] [phone] Social History Tobacco Use Types Packs/Day Years [...] Description 10/04/2025 2:00 PM EST Office Visit [facility] MEDICINE [address] [place] [address] Sudha Richardson MD [address] [place] [address] 11/20/2025 3:30 PM EST Clinical Support [facility] DIABETES/NUTRITION [address] [place] [address] [place] [address] documented as of this encounter Visit Diagnoses Not on filedocumented in this encounter Additional Health Concerns Assessment Noted Time PHQ-9 Depression Total Score: 24 024 9:39 AM EDT documented as of this encounter Care Teams Field Auto Appraiser Relationship Specialty Start Date End Date Sudha Richardson MD [address] [place] [address] PCP - General Family Medicine 10/19/18 Matthew Woods MD [address] [place] [address] Pain Medicine 09/21/24 Stephanie Rice MD 5 [facility] 8th Floor, [address] [place] [address] Plastic Surgery 12/22/24 documented as of this encounter
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
--- OUTSIDE RECORDS SUMMARY | 2025-09-30 12:56 | XMS_ITS | Encounter Summary ---
Author Organization [employer] Address [address] [place] [address] 7t [place] [address] Care Team Providers Care Wild Oyster Harvester Name Role Phone Sudha Richardson MD Primary Care Provider +1- [phone] Matthew Woods MD Unavailable Reason for Visit * Reason Onset Date Comments Durable Medical Equipment 05/20/2023 Encounter Details Date Type Department Care Team (Late st Contact Info) Description 05/20/[address] [facility] MEDICINE [address] [place], [place] [phone] Sudha Richardson MD [address] [place] [address] Durable Medical Equipment Social History Tobacco Use [...] Description 10/04/2025 2:00 PM EST Office Visit [facility] MED[facility] [address] [place] [address] Sudha Richardson MD [address] [place] [address] 11/20/2025 3:30 PM EST Clinical Support [facility] DIABETES/NUTRITION [address] [place] [address] [place] [address] documented as of this encounter Visit Diagnoses Not on filedocumented in this encounter Additional Health Concerns Assessment Noted Time PHQ-9 Depression Total Score: 0 12/26/19 23 2:59 PM EST documented as of this encounter Care Teams Wild Oyster Harvester Relationship Specialty Start Date End Date Sudha Richardson MD [address] [place] [address] PCP - General Family Medicine 10/19/18 Matthew Woods MD [address] [place] [address] Drive [address] [place] [address] Pain Medicine 09/21/24 Stephanie Rice MD [address] [place] [address] 8th Floor, [address] [place] [address] Plastic Surgery 12/22/24 documented as of this encounter
--- OUTSIDE RECORDS SUMMARY | 2025-09-30 12:56 | XMS_ITS | Encounter Summary ---
Author Organization [employer] Address [address] [place] [address] 7t [place] [address] Care Team Providers Care Manager Contracting Name Role Phone Sudha Richardson MD Primary Care Provider +1- [phone] Matthew Woods MD Unavailable Reason for Visit * Reason Onset Date Comments triage 02/04/2023 Encounter Details Date Type Department Care Team (Late st Contact Info) Description 02/04/2023 Telephone [facility] MEDICINE [address] [place], [place] [phone] Sudha Richardson MD [address] [place] [address] triage Social History Tobacco Use Types Packs/Day [...] Richardson. Pt is advised to come to [facility] for care for nausea and [...] Description 10/04/2025 2:00 PM EST Office Visit [facility] MEDICINE [address] [place] [address] Sudha Richardson MD [address] [place] [address] 11/20/2025 3:30 PM EST Clinical Support [facility] DIABETES/NUTRITION [address] [place] [address] [place] [address] documented as of this encounter Visit Diagnoses Not on filedocumented in this encounter Additional Health Concerns Assessment Noted Time PHQ-9 Depression Total Score: 0 12/26/19 23 2:59 PM EST documented as of this encounter Care Teams Manager Contracting Relationship Specialty Start Date End Date Sudha Richardson MD [address] [place] [address] PCP - General Family Medicine 10/19/18 Matthew Woods MD [address] [place] [address] [address] [place] [address] Pain Medicine 09/21/24 Stephanie Rice MD [address] [place] [address] 8th Floor, [address] [place] [address] Plastic Surgery 12/22/24 documented as of this encounter
--- OUTSIDE RECORDS SUMMARY | 2025-09-30 12:56 | XMS_ITS | Clinical Summary ---
Author Organization [facility] Address [address] [place] [address] Care Team Providers Care Oracle Reports Developer Name Role Phone Juvencio Richardsonbryan Taylor Primary Care Provider +1- [phone] Allergies Active Allergy Reactions Criticality Noted Date [...] propionate (FLONASE) 50 mcg/actuation nasal spray SMARTSI Warren(s) Both Nares Daily Active gabapentin (NEURONTIN) 100 [...] Team Description 07/13/2025 8:15 AM EDT Follow-Up [facility] Plastic Cosmetic Surgery [address] [place] [address] Medical Device Engineer: Shaunna Felipe MD Transgender (Primary Dx); Gender [...] Info) Description 01/04/2026 10:15 AM EDT Follow-Up [facility] Plastic Cosmetic Surgery [address] [place] [address] Medical Device Engineer: Shaunna Felipe MD [address] [place] [address] Health Maintenance Due Date Last Done Comments Cervical Cancer Screening 1985 HPV and Pap Smear 1985 Hepatitis C Screening 1985 Pap Smear 1985 Varicella Vaccines (1 of 2 - 13+ 2-dose series) 1996 Mammogram 2023 Alcohol/Substance Use Screening 10/19/2024 Depression Screening and Follow-Up 10/19/2024 Social Drivers of Health Annual Screening 10/19/2024 Influenza Vaccine (#1) 2025 9, 08/27/2017, 07/17/2016, Additional history exists COVID-19 Vaccine (3 - 2024- season) 2025 04/05/2021, 03/08/2021 Diabetes Screening 04/27/2028 04/27/2025, 0 12/17/2024, 09/27/2024, Additional history exists DTaP,Tdap,and Td Vaccines (3 - Td or Tdap) 02/04/2034 02/05/2024, 07/17/2016 Hepatitis B Vaccines Completed 08/12/2023, 04/15/2023, 07/21/2019 HIV Screening Completed 12/12/2024, 11/20, 04/16/2023 Pneumococcal Vaccine: Pediatric (0-5 Years) and At-Risk Patients (6-50 Years) Aged Out No longer eligible based on patient's age to complete this topic Insurance [facility] Advance Directives * Full Code (Latest Code Status on File) Date Activated Date Inactivated Comments 06/27/2025 1:45 PM 06/27/2025 9:28 PM Healthcare Agents on File Name Relationship Healthcare Agent Relationshi p Communication Jose Alves Research Software Engineer Next of Kin [phone] (Edda vaca) Care Teams Oracle Reports Developer Relationship Specialty Start Date End Date Sudha Richardson: [phone] [address] [place] [address] PCP - General Family Medicine 09/07/24
--- OUTSIDE RECORDS SUMMARY | 2025-09-30 12:56 | XMS_ITS | Encounter Summary ---
Author Organization [employer] Address [address] 7t [place] [address] Care Team Providers Care Police Guard Name Role Phone Sudha Richardson MD Primary Care Provider +1- [phone] Matthew Woods MD Unavailable Reason for Visit * Reason Comments Med Refill Encounter Details Date Type Department Care Team (Late st Contact Info) Description 03/26/[address] [facility] MEDICINE [address] [place], [place] [phone] Sudha Richardson MD [address] [place], [place] [phone] Urinary incontinence, unspecified type Social History Tobacco [...] Visit [facility] MEDICINE [address] [place] [address] Sudha Richardson MD [address] [place] [address] 11/20/2025 3:30 PM EST Clinical Support [facility] DIABETES/NUTRITION [address] [place] [address] [place] [address] documented as of this encounter Visit Diagnoses Diagnosis Urinary incontinence, unspecified type documented in this encounter Additional Health Concerns Assessment Noted Time PHQ-9 Depression Total Score: 0 12/26/19 23 2:59 PM EST documented as of this encounter Care Teams Police Guard Relationship Specialty Start Date End Date Sudha Richardson MD [address] [place] [address] PCP - General Family Medicine 10/19/18 Matthew Woods MD [address] [place] [address] Pain Medicine 09/21/24 Stephanie Rice MD [address] [place] [address] 8th Floor, [address] [place] [address] Plastic Surgery 12/22/24 documented as of this encounter
--- OUTSIDE RECORDS SUMMARY | 2025-09-30 12:56 | XMS_ITS | Encounter Summary ---
Author Organization [facility] Address [address] [place] [address] 7t [place] [address] Care Team Providers Care Wet Wheeler Name Role Phone Sudha Richardson MD Primary Care Provider +1- [phone] Matthew Woods MD Unavailable Encounter Details Date Type Department Care Team (Late st Contact Info) Description 04/22/2023 Orders Only [facility] MEDICINE [address] [place] [address] Sudha Richardson MD [address] [place], [place] [phone] Gender identity disorder of adulthood (Primary Dx) [...] 2:00 PM EST Office Visit [facility] MEDICINE [address] [place] [address] Sudha Richardson MD [address] [place] [address] 11/20/2025 3:30 PM EST Clinical Support [facility] DIABETES/NUTRITION [address] [place] [address] Roberta Mckeon, RD [address] [place] [address] Scheduled Orders Name Type Priority Associated Diagnoses [...] documented as of this encounter Care Teams Wet Wheeler Relationship Specialty Start Date End Date Sudha Richardson MD [address] [place] [address] PCP - General Family Medicine 10/19/18 Matthew Woods MD [address] [place] [address] Drive [address] [place] [address] Pain Medicine 09/21/24 Stephanie Rice MD [address] [place] [address] 8th Floor, [address] [place] [address] Plastic Surgery 12/22/24 documented as of this encounter
--- OUTSIDE RECORDS SUMMARY | 2025-09-30 12:56 | XMS_ITS | Encounter Summary ---
Author Organization [facility] Address [address] [place] [address] Phone Care Team Providers Care Transit Clerk Name Role Phone Debra, Sudha Biswas MD Primary Care Provi ely Reason for Referral * Physical Therapy (Routine) - Closed Specialty Diagnoses / Procedures Referred By Contac t Referred To Contact Physical Therapy Diagnoses Pelvic floor dysfunction Stephanie Rice MD Phone: tel: fax: [facility] [address] [place] [address] Phone: tel: Referral ID Status Reason Start Date Expiration Date Visits Re quested Visits Authorized [id number] Closed 05/16/2019 08/18/2019 12 12 Encounter Details Date Type Department Care Team (Latest Contact Info) Description 05/16/2019 Transcribe Orders [facility] [address] [place] [address] Stephanie Rice MD [address] [facility] 8th Floor, [address] [place] [address] Pelvic floor dysfunction (Primary Dx) Social History [...] Primary documented in this encounter Care Teams Transit Clerk Relationship Specialty Start Date End Date Debra, Sudha Biswas MD [address] [place] [address] PCP - General Family Medicine 05/11/19 documented as of this encounter Additional Source Comments The information contained in this document represents components of the legal health record. It is not the complete legal health record.[facility]
--- OUTSIDE RECORDS SUMMARY | 2025-09-30 12:56 | XMS_ITS | Encounter Summary ---
Author Organization [employer] Address [address] [facility] 7t [place] [address] Care Team Providers Care Public Space Attendant Name Role Phone Sudha Richardson MD Primary Care Provider +1- [phone] Matthew Woods MD Unavailable Reason for Visit * Reason Comments Pre-visit Planning SDOH unable to reach LVM Encounter Details Date Type Department Care Team (Late st Contact Info) Description 09/27/2025 Patient Outreach [facility] [address] [place] [address] Sudha Richardson MD [address] [place] [address] Pre-visit Planning (SDOH unable to reach LVM) Social History Tobacco Use Types Packs/Day Years [...] the past 12 months, has t he [employer], gas, oil or water [employer] threatened to shut off services in your [...] AM EDT documented as of this encounter Progress Notes * Claudia Krishnamurthy - 09/27/2025 3:26 PM EST CC Claudia Radford placed outbound call to patient to complete pre-visit planning. No answer at this time. Patient name and were not confirmed. CC left voicemail requesting return call. Direct contactinformation provided. documented in this encounter Plan of Treatment Upcoming Encounters Date Type Department Care Team ([facility] st Contact Info) Description 10/04/2025 2:00 PM EST Office Visit [facility] MEDICINE [address] [place] [address] Sudha Richardson MD [address] [place] [address] 11/20/2025 3:30 PM EST Clinical Support [facility] DIABETES/NUTRITION [address] [place] [address] [place] [address] documented as of this encounter Visit Diagnoses Not on filedocumented in this encounter Additional Health Concerns Assessment Noted Time PHQ-9 Depression Total Score: 23 025 9:43 AM EDT documented as of this encounter Care Teams Public Space Attendant Relationship Specialty Start Date End Date Sudha Richardson MD [address] [place] [address] PCP - General Family Medicine 10/19/18 Matthew Woods MD [address] [place] [address] Drive [address] [place] [address] Pain Medicine 09/21/24 Stephanie Rice MD [address] [place] [address] Floor, [address] [place] [address] Plastic Surgery 12/22/24 documented as of this encounter
--- OUTSIDE RECORDS SUMMARY | 2025-09-30 12:56 | XMS_ITS | Encounter Summary ---
Author Organization [facility] Address [address] [place] [address] Phone Care Team Providers Care Science Center Display Builder Name Role Phone Sudha Richardson MD Primary Care Provi ely Encounter Details Date Type Department Care Team (Late st Contact Info) Description 06/22/2019 Telephone [facility] [address] [place] [address] Yue Wright, PT Social History Tobacco Use [...] on filedocumented in this encounter Care Teams Science Center Display Builder Relationship Specialty Start Date End Date Sudha Richardson MD [address] [place] [address] PCP - General Family Medicine 05/11/19 documented as of this encounter Additional Source Comments The information contained in this document represents components of the legal health record. It is not the complete legal health record.[facility]
--- OUTSIDE RECORDS SUMMARY | 2025-09-30 12:56 | XMS_ITS | Encounter Summary ---
Author Organization [employer] Address [address] [facility] 7t [place] [address] Care Team Providers Care Family Law Paralegal Name Role Phone Sudha Richardson MD Primary Care Provider +1- [phone] Matthew Woods MD Unavailable Encounter Details Date Type Department Care Team (Late st Contact Info) Description 02/09/2023 Orders Only [facility] MEDICINE [address] [place] [address] Sudha Richardson MD [address] [place], [place] [phone] Social History Tobacco Use Types Packs/Day Years [...] Description 10/04/2025 2:00 PM EST Office Visit [facility] MEDICINE [address] [place] [address] Sudha Richardson MD [address] [place] [address] 11/20/2025 3:30 PM EST Clinical Support [facility] DIABETES/NUTRITION [address] [place] [address] Roberta Mckeon, CHARLA [address] [place] [address] documented as of this encounter Visit Diagnoses Not on filedocumented in this encounter Additional Health Concerns Assessment Noted Time PHQ-9 Depression Total Score: 0 12/26/19 23 2:59 PM EST documented as of this encounter Care Teams Family Law Paralegal Relationship Specialty Start Date End Date Sudha Richardson MD [address] [place] [address] PCP - General Family Medicine 10/19/[address] Matthew Woods MD [address] [place] [address] Pain Medicine 09/21/24 Stephanie Rice MD [address] [place] [address] Floor, [address] [place] [address] Plastic Surgery 12/22/24 documented as of this encounter
[2025-09-30 13:07] VITALS: BP 152/103; PULSE 81; RESP 16; TEMP 36.2; O2SAT 99
== END 2025-09-30 13:08 | disposition home or self-care (01) ==
PROVIDERS: Emergency Provider Emergency Medicine; PCP Family Medicine
DX: M79.7 Fibromyalgia (principal); Z76.0 Encounter for issue of repeat prescription
CPT/HCPCS: 99282

== ENCOUNTER 2025-10-18 13:36 | Outpatient (AMB) | payer OTHER, SELFPAY ==
--- NOTE | 2025-10-18 13:38 | A.OFFVIS_ITS ---
Vital Signs 10/18/25 13:47 Height 5 ft 7 in Weight 193 lb BMI 30.2 BP 135/88 Blood Pressure Location Rt brachial Position Sitting Respiration 16 Pulse 86 Pulse Source Pulse Oximeter Pulse Oximetry (%) 97 Oxygen Delivery Method Room Air Intake Visit Reasons: PILL COUNT Intake Note: Patient here for a pill count routine of Oxycodone per directions patient should have 39 pills patient presented 41 pills. Last took 1pm Crop Research Scientist Required: No Accompanied by: Self / Same As Patient Allergies cockroach Allergy (Verified 10/18/25 13:47) Rash feathers Allergy (Verified 10/18/25 13:47) Rash HPI Comments Details: [facility]le[facility] is my office today for the follow-up and pill count. She reports alleviated level of pain today 05/28. She reports increased level of pain. She reports that without Tylenol she seemed to be getting less pain relief from oxycodone medication alone. I recommended her to take her oxycodone alongside with Tylenol 325/500 extra strength. Patient expressed understanding. Her pill count is correct today. She supposed to have 41 pills in her possession. She supposed to have 39 pills in her possession. This demonstrates responsible attitude for the opioid medications. She denies any side effects of the opioid medications, she denies constipation. Prior: The patient presents to the office with persistent right knee pain following a right infrapatellar saphenous nerve block performed three weeks prior. Initially, post-procedure, the patient experienced significant relief with pain reduced from a 7 or 8 out of 10 to approximately a 2 or 3. The relief was short- lived as the pain eventually returned. The patient reports pre-procedure pain exacerbated by weight-bearing activities. Post-procedure, the transient relief allowed for greater mobility, which may have contributed to an increase in pain once the anesthesia wore off. The patient uses gabapentin and oxycodone for pain management, although she is wary of interactions when consuming alcohol. - Onset: Chronic, worsened significantly after nerve block wore off - Quality: Aching, sometimes sharp - Location: Right knee, radiating to hip and back - Severity: Daily average pre-block 7-8/10; immediate post-block relief to 2- 3/10, then returned - Timing: Persistent, fluctuates with activity - Exacerbating Factors: Weight-bearing, increased physical activity post-block - Relieving Factors: Initial nerve block, medications (gabapentin, oxycodone), avoidant of excessive activity - Interference: Walking, standing, certain activities of daily living - Affect: Significant frustration and anxiety related to persistent pain and medical procedures - Analgesia: Gabapentin, Oxycodone; post-block relief short-lived - Adverse Effects: Dizziness and headaches likely related to anxiety and medicat ion interactions - Activities of Daily Living: Impacts mobility, occasionally requires use of a cane, affects ability to manage household and daily tasks - Aberrant Drug Related Behaviors: None reported explicitly, cautious with alcohol interaction [facility] Medical History PTSD (post-traumatic stress disorder) Depression with anxiety Carpal tunnel syndrome, bilateral Status post gender reassignment surgery Breast implant in situ Chronic pain syndrome Spondylolysis, 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 Arthritis Surgical History History of breast implant removal Person who has undergone gender reassignment surgery Social History Alcohol intake: current Alcohol intake frequency: holidays/special occasions only Alcohol type: wine Patient Tobacco Use Status: Former Tobacco user Substance Use Type: Marijuana Current occupational status: disabled Current occupation: rt hand Review of Systems Const All systems reviewed & are unremarkable except as noted in HPI and below Physical Exam Vital Signs: Last Vital Signs Pulse 86 10/18/25 13:47 Resp 16 10/18/25 13:47 BP 135/88 10/18/25 13:47 Pulse Ox 97 10/18/25 13:47 Oxygen Delivery Method Room Air 10/18/25 13:47 BMI result Body Mass Index 30.2 General: Appears afebrile. Alert and oriented. Mood and affect appropriate. Follows and participates in conversation appropriately. Respiratory effort is unlabored. No cough. Able to transition from sit to stand unassisted. Uses cane with ambulation. Ambulates with bilaterally normal heel strike and toe off. General: Yes no CVA tenderness Back/Spine/Pelvis Back: no CVA tenderness Thoracic/Lumbar Spine: thoracic and lumbar spine normal to inspection Extrem General: Yes capillary refill normal, Yes no clubbing, cyanosis or edema and Yes no calf tenderness Psych Appearance: grossly normal Speech and movement: Normal speech and movement present and Pressured speech present Affect: Sad affect present and Hostile affect present Attitude: cooperative Thought process: Normal thought process present and Circumstantial thought proce ss present Thought content: Normal thought content present, suicidality (none) and no hallucinations Insight: Good insight present (Psych) Judgement: Good judgement present (Psych) Assessment & Plan Assessment & Plan (1) Spondylolysis, lumbar region: Code(s): M43.06 - Spondylolysis, lumbar region Category: Medical (2) Bilateral primary osteoarthritis of knee: Code(s): M17.0 - Bilateral primary osteoarthritis of knee Category: Medical (3) Osteoarthritis of right knee: Code(s): M17.11 - Unilateral primary osteoarthritis, right knee Category: Medical (4) Right knee pain: Code(s): M25.561 - Pain in right knee Category: Medical Plan Pill count is correct today. New appointment in 1 month Physical therapy order printed out and was given to the patient. I will prescribe her medications due on 11/01/2025 She is now on oxycodone 5 mg TID. Last Narcan prescription was 02/09/2025. Medications: Refilled oxycodone Partial Fill upon patient request. 5 mg PO TID PRN 90 tabs 0RF pain 30 days F11.90 - Opioid use, unspecified, uncomplicated, G89.4 - Chronic pain syndrome, M43.06 - Spondylolysis, lumbar region Coding Level of Care Code Est Pt Level 3 (22202) Diagnoses Spondylolysis, lumbar region M43.06 Bilateral primary osteoarthritis of knee M17.0 Osteoarthritis of right knee M17.11 Right knee pain M25.561
[2025-10-18 13:47] VITALS: BP 135/88; PULSE 86; RESP 16; O2SAT 97; BMI 30.2
--- OUTSIDE RECORDS SUMMARY | 2025-10-18 14:59 | XMS_ITS | Encounter Summary ---
Author Organization [employer] Address [address] [place] [address] 7t [place] [address] Care Team Providers Care Viscosity Inspector Name Role Phone Sudha Richardson MD Primary Care Provider +1- [phone] Matthew Woods MD Unavailable Reason for Visit * Reason [place] Date Comments triage 02/04/2023 Encounter Details Date Type Department Care Team (Late st Contact Info) Description 02/04/2023 Telephone [facility] MEDICINE [address] [place], [place] [phone] Sudha Richardson MD 230 [place] [address] triage Social History Tobacco Use Types Packs/Day [...] Richardson. Pt is advised to come to [facility] for care for nausea and vomiting [...] Care Team (Late st Contact Info) Description 11/20/2025 3:30 PM EST Clinical Support [facility] DIABETES/NUTRITION [address] [place] [address] [place], [place] [phone] documented as of this encounter Visit Diagnoses Not on filedocumented in this encounter Additional Health Concerns Assessment Noted Time PHQ-9 Depression Total Score: 0 12/26/19 23 2:59 PM EST documented as of this encounter Care Teams Viscosity Inspector Relationship Specialty Start Date End Date Sudha Richardson MD [address] [place] [address] PCP - General Family Medicine 10/19/18 Matthew Woods MD [address] [place] [address] [address] [place] [address] Pain Medicine 09/21/24 Stephanie Rice MD 5 [facility] 8th Floor, [address] [place] [address] Plastic Surgery 12/22/24 documented as of this encounter
--- OUTSIDE RECORDS SUMMARY | 2025-10-18 14:59 | XMS_ITS | Encounter Summary ---
Author Organization [employer] Address 75 [facility] 7t [place] [address] Care Team Providers Care Renewals Representative Name Role Phone Sudha Richardson MD Primary Care Provider +1- [phone] Matthew Woods MD Unavailable Encounter Details Date Type Department Care Team (Late st Contact Info) Description 11/06/2023 Telephone [facility] MEDICINE [address] [place] [address] Sudha Richardson MD [address] [place] [address] Social History Tobacco Use Types Packs/Day Years [...] Description 11/20/2025 3:30 PM EST Clinical Support [facility] DIABETES/NUTRITION [address] [place] [address] [place] [address] documented as of this encounter Visit Diagnoses Not on filedocumented in this encounter Additional Health Concerns Assessment Noted Time PHQ-9 Depression Total Score: 0 12/26/19 23 2:59 PM EST documented as of this encounter Care Teams Renewals Representative Relationship Specialty Start Date End Date Sudha Richardson MD [address] [place] [address] PCP - General Family Medicine 10/19/18 Matthew Woods MD [address] [place] [address] Pain Medicine 09/21/24 Stephanie Rice MD [address] [place] [address] Floor, [address] [place] [address] Plastic Surgery 12/22/24 documented as of this encounter
--- OUTSIDE RECORDS SUMMARY | 2025-10-18 14:59 | XMS_ITS | Encounter Summary ---
Author Organization [employer] Address [address] [facility] 7t [place] [address] Care Team Providers Care Ergonomics Consultant Name Role Phone Vinton, Sudha FROST Primary Care Provider +- [phone] Matthew Woods MD Unavailable Reason for Visit * Reason Comments Med Refill Encounter Details Date Type Department Care Team (Late st Contact Info) Description 01/06/2024 Refill [facility] MEDICINE [address] [place], [place] [phone] Atiya Alegria MD [address] [place], [place] [phone] Urinary incontinence, unspecified type Social History Tobacco [...] Description 11/20/2025 3:30 PM EST Clinical Support [facility] DIABETES/NUTRITION [address] [place] [address] [place] [address] documented as of this encounter Visit Diagnoses Diagnosis Urinary incontinence, unspecified type documented in this encounter Additional Health Concerns Assessment Noted Time PHQ-9 Depression Total Score: 0 12/26/19 23 2:59 PM EST documented as of this encounter Care Teams Ergonomics Consultant Relationship Specialty Start Date End Date Sudha Richardson MD [address] [place] [address] PCP - General Family Medicine 10/19/18 Matthew Woods MD [address] [place] [address] Pain Medicine 09/21/24 Stephanie Rice MD [address] [place] [address] 8th Floor, [address] [place] [address] Plastic Surgery 12/22/24 documented as of this encounter
--- OUTSIDE RECORDS SUMMARY | 2025-10-18 14:59 | XMS_ITS | Encounter Summary ---
Author Organization [employer] Address [address] [place] [address] 7t [place] [address] Care Team Providers Care Ethylbenzene Converter Helper Name Role Phone Sudha Richardson MD Primary Care Provider +1- [phone] Matthew Woods MD Unavailable Encounter Details Date Type Department Care Team (Late st Contact Info) Description 05/07/2023 Orders Only [facility] MEDICINE [address] [place] [address] Sudha Richardson MD [address] [place], [place] [phone] Gender dysphoria in adult Social History Tobacco [...] Description 11/20/2025 3:30 PM EST Clinical Support [facility] DIABETES/NUTRITION [address] [place] [address] Roberta Mckeon, CHARLA [address] [place] [address] documented as of this encounter Visit Diagnoses Diagnosis Gender dysphoria in adult documented in this encounter Additional Health Concerns Assessment Noted Time PHQ-9 Depression Total Score: 0 12/26/19 23 2:59 PM EST documented as of this encounter Care Teams Ethylbenzene Converter Helper Relationship Specialty Start Date End Date Sudha Richardson MD [address] [place] [address] PCP - General Family Medicine 10/19/18 Matthew Woods MD [address] [place] [address] Drive [address] [place] [address] Pain Medicine 09/21/24 Stephanie Rice MD 5 [facility] 8th Floor, [address] [place] [address] Plastic Surgery 12/22/24 documented as of this encounter
--- OUTSIDE RECORDS SUMMARY | 2025-10-18 14:59 | XMS_ITS | Encounter Summary ---
Author Organization [employer] Address [address] [place] [address] 7t [place] [address] Care Team Providers Care Tire Service Supervisor Name Role Phone Sudha Richardson MD Primary Care Provider +1- [phone] Matthew Woods MD Unavailable Reason for Visit * Reason Onset Date Comments Durable Medical Equipment 05/20/2023 Encounter Details Date Type Department Care Team (Late st Contact Info) Description 05/20/2023 Telephone [facility] MEDICINE 230 [place], [place] [phone] Sudha Richardson MD [address] [place] [address] Durable Medical Equipment Social History Tobacco Use [...] Description 11/20/2025 3:30 PM EST Clinical Support [facility] DIABETES/NUTRITION [address] [place] [address] [place] [address] documented as of this encounter Visit Diagnoses Not on filedocumented in this encounter Additional Health Concerns Assessment Noted Time PHQ-9 Depression Total Score: 0 12/26/19 23 2:59 PM EST documented as of this encounter Care Teams Tire Service Supervisor Relationship Specialty Start Date End Date Sudha Richardson MD [address] [place] [address] PCP - General Family Medicine 10/19/18 Matthew Woods MD [address] [place] [address] Drive [address] [place] [address] Pain Medicine 09/21/24 Stephanie Rice MD 5 [facility] 8th Floor, [address] [place] [address] Plastic Surgery 12/22/24 documented as of this encounter
--- OUTSIDE RECORDS SUMMARY | 2025-10-18 14:59 | XMS_ITS | Encounter Summary ---
Author Organization [employer] Address 75 [facility] 7t [place] [address] Care Team Providers Care Care Management Associate Name Role Phone Sudha Richardson MD Primary Care Provider +1- [phone] Matthew Woods MD Unavailable Reason for Visit * Reason Onset Date Comments Referral 12/11/2022 Encounter Details Date Type Department Care Team (Late st Contact Info) Description 12/11/[address] [facility] MEDICINE 230 [place], [place] [phone] Sudha Richardson MD [address] [place] [address] Referral Social History Tobacco Use Types Packs/Day [...] Tc from pt requesting a referral to [facility] PT for an 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 Needs a written referral with details. Pt claims that without it, no process can be down. [facility] PT number is [phone] press number 2. Pt states that this is through moose coordinator for pt. Please contact pt [phone] documented in this encounter Plan of Treatment Upcoming Encounters Date Type Department Care Team (Late st Contact Info) Description 11/20/2025 3:30 PM EST Clinical Support [facility] DIABETES/NUTRITION [address] [place] [address] Roberta Mckeon, CHARLA 230 [place] [address] documented as of this encounter Visit Diagnoses Not on filedocumented in this encounter Care Teams Care Management Associate Relationship Specialty Start Date End Date Sudha Richardson MD [address] [place] [address] PCP - General Family Medicine 10/19/18 Matthew Woods MD [address] [place] [address] Pain Medicine 09/21/24 Stephanie Rice MD [address] [place] [address] 8th Floor, [address] [place] [address] Plastic Surgery 12/22/24 documented as of this encounter
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
--- OUTSIDE RECORDS SUMMARY | 2025-10-18 14:59 | XMS_ITS | Encounter Summary ---
Author Organization [employer] Address [address] [facility] 7t [place] [address] Care Team Providers Care Sole Stainer Name Role Phone Sudha Richardson MD Primary Care Provider +1- [phone] Matthew Woods MD Unavailable Encounter Details Date Type Department Care Team (Late st Contact Info) Description 02/09/2023 Orders Only [facility] MEDICINE [address] [place] [address] Sudha Richardson MD 230 [place], [place] [phone] Social History Tobacco Use Types Packs/Day Years [...] 11/20/2025 3:30 PM EST Clinical Support [facility] DIABETES/NUTRITION [address] [place] [address] [place] [address] documented as of this encounter Visit Diagnoses Not on filedocumented in this encounter Additional Health Concerns Assessment Noted Time PHQ-9 Depression Total Score: 0 12/26/19 23 2:59 PM EST documented as of this encounter Care Teams Sole Stainer Relationship Specialty Start Date End Date Sudha Richardson MD [address] [place] [address] PCP - General Family Medicine 10/19/18 Matthew Woods MD [address] [place] [address] Drive [address] [place] [address] Pain Medicine 09/21/24 Stephanie Rice MD [address] [place] [address] Floor, [address] [place] [address] Plastic Surgery 12/22/24 documented as of this encounter
--- OUTSIDE RECORDS SUMMARY | 2025-10-18 14:59 | XMS_ITS | Encounter Summary ---
Author Organization [employer] Address [address] [place] [address] 7t [place] [address] Care Team Providers Care Metal Weather Stripper Name Role Phone Sudha Richardson MD Primary Care Provider +1- [phone] Matthew Woods MD Unavailable Encounter Details Date Type Department Care Team (Late st Contact Info) Description 04/22/2023 Orders Only [facility] MEDICINE 230 [place] [address] Sudha Richardson MD 230 [place], [place] [phone] Gender identity disorder of adulthood (Primary Dx) [...] Description 11/20/2025 3:30 PM EST Clinical Support [facility] DIABETES/NUTRITION 230 [place] [address] 230 [place] [address] Scheduled Orders Name Type Priority Associated Diagnoses [...] documented as of this encounter Care Teams Metal Weather Stripper Relationship Specialty Start Date End Date Sudha Richardson MD [address] [place] [address] PCP - General Family Medicine 10/19/18 Matthew Woods MD [address] [place] [address] Drive [address] [place] [address] Pain Medicine 09/21/24 Stephanie Rice MD [address] [place] [address] Floor, [address] [place] [address] Plastic Surgery 12/22/24 documented as of this encounter
--- OUTSIDE RECORDS SUMMARY | 2025-10-18 14:59 | XMS_ITS | Encounter Summary ---
Author Organization [employer] Address [address] [facility] 7t [place] [address] Care Team Providers Care Music Therapy Teacher Name Role Phone [place], Sudha FROST Primary Care Provider +1- [phone] Matthew Woods MD Unavailable Encounter Details Date Type Department Care Team ([facility] Contact Info) Description 11/17/[address] [facility] MEDICINE [address] [place] [address] Grabiel Sanders MD [address] [place] [address] Social History Tobacco Use Types Packs/Day Years [...] Upcoming Encounters Date Type Department Care Team ([facility] Contact Info) Description 11/20/2025 3:30 PM EST Clinical Support [facility] DIABETES/NUTRITION 230 [place] [address] Roberta Mckeon, RD 230 [place] [address] documented as of this encounter Procedures Procedure Name Priority Date/Time Associated Diagnosis Comments XR CHEST 2 VIEWS Routine 11/27/2022 3:16 PM EST documented in this encounter Results * XR Chest 2 Views (11/27/2022 3:16 PM EST) Anatomical Region Laterality Modality Chest Radiographic Kym ging 11/27/2022 3:16 PM EST Narrative 12/03/2022 11:47 AM EST [address] [address] XRay Report Signed Patient: Cherri Booth MR #: [id number] : 1985 Acct:[id number] Age/Sex: 37 / F ADM Date: 11/27/22 Loc: [facility] Attending Dr: Grabiel Sanders MD Ordering Physician: Grabiel Sanders MD Date of Service: 11/27/22 Procedure(s): XR chest 2V Accession Number(s): [id number] cc: Grabiel Sanders MD EXAMINATION: XR CHEST [...] in OV> 12/03/22 1144 DD/ 1516 TD/TT: Torch Shearer: LAVELLE Procedure Note Donotuseinterpreter, Image - 12/03/[address] [address] XRay Report Signed Patient: Cherri BoothMR #: [id number] : 1985Acct:[id number] Age/Sex: 37 / FADM Date: 11/27/22 Loc: HO.XRAY Attending Dr: Grabiel Sanders MD Ordering Physician: Grabiel Sanders MD Date of Service: 11/27/22 Procedure(s): XR chest 2V Accession Number(s): [id number] cc: Grabiel Sanders MD EXAMINATION: XR CHEST [...] in OV> 12/03/22 1144 DD/ 1516 TD/TT: Torch Shearer: LAVELLE Authoraure Provider Result Type Result Stat [facility] External Provider IMG XR PROCEDURES Edited Result - Final documented in this encounter Visit Diagnoses Not on filedocumented in this encounter Care Teams Music Therapy Teacher Relationship Specialty Start Date End Date Sudha Richardson MD [address] [place] [address] PCP - General Family Medicine 10/19/18 Matthew Woods [address] [place] [address] Pain Medicine 09/21/24 Stephanie Rice MD [address] [place] [address] Floor, [address] [place] [address] Plastic Surgery 12/22/24 documented as of this encounter
--- OUTSIDE RECORDS SUMMARY | 2025-10-18 14:59 | XMS_ITS | Encounter Summary ---
Author Organization [employer] Address [address] [facility] 7t [place] [address] Care Team Providers Care Senior Reactor Operator Name Role Phone Sudha Richardson MD Primary Care Provider +1- [phone] Matthew Woods MD Unavailable Reason for Visit * Reason Onset Date Comments Error 01/05/2024 Encounter Details Date Type Department Care Team ([facility] st Contact Info) Description 01/05/[address] [facility] MEDICINE [address] [place] [address] Sudha Richardson MD [address] [place] [address] Error Social History Tobacco Use Types Packs/Day [...] Description 11/20/2025 3:30 PM EST Clinical Support [facility] DIABETES/NUTRITION 230 [place] [address] [place] [address] documented as of this encounter Visit Diagnoses Not on filedocumented in this encounter Additional Health Concerns Assessment Noted Time PHQ-9 Depression Total Score: 0 12/26/19 23 2:59 PM EST documented as of this encounter Care Teams Senior Reactor Operator Relationship Specialty Start Date End Date Sudha Richardson MD [address] [place] [address] PCP - General Family Medicine 10/19/18 Matthew Woods MD [address] [place] [address] Pain Medicine 09/21/24 Stephanie Rice MD [address] [place] [address] 8th Floor, [address] [place] [address] Plastic Surgery 12/22/24 documented as of this encounter
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
--- OUTSIDE RECORDS SUMMARY | 2025-10-18 15:00 | XMS_ITS | Encounter Summary ---
Author Organization [facility] Address [address] [place] [phone] Phone Care Team Providers Care Community Product Specialist Name Role Phone Sudha Richardson MD Primary Care Provi ely Encounter Details Date Type Department Care Team (Late st Contact Info) Description 06/22/2019 Telephone [facility] [address] [place] [address] [place] [address] Yue Wright, PT Social History Tobacco Use [...] on filedocumented in this encounter Care Teams Community Product Specialist Relationship Specialty Start Date End Date Sudha Richardson MD [address] [place] [phone] PCP - General Family Medicine 05/11/19 documented as of this encounter Additional Source Comments The information contained in this document represents components of the legal health record. It is not the complete legal health record.[facility]
--- OUTSIDE RECORDS SUMMARY | 2025-10-18 15:00 | XMS_ITS | Clinical Summary ---
Author Organization [facility] Address [address] [place] [address] Care Team Providers Care Outfitter Cabin Name Role Phone Juvencio Richardsonbryan Taylor Primary Care Provider [phone] Allergies Active Allergy Reactions Criticality Noted Date [...] propionate (FLONASE) 50 mcg/actuation nasal spray [facility] [place](s) Both Nares Daily Active gabapentin (NEURONTIN) 100 [...] hours as needed for pain. 5 Active Social History Tobacco Use Types Packs/Day Years Used Date Smoking Tobacco: Former Cigarettes 1 2017 Smokeless Tobacco: Never Tobacco Cessation:Counseling Given: [...] Info) Description 01/04/2026 10:15 AM EDT Follow-Up [facility] Plastic Cosmetic Surgery [address] [place] [address] Science Analyst: Shaunna Felipe MD [address] [place] [address] Health Maintenance Due Date Last Done Comments [...] 07/17/2016, Additional history exists COVID-19 Vaccine ( - 2024- season) 2025 04/05/2021, 03/08/2021 Diabetes [...] patient's age to complete this topic Insurance [facility] Advance Directives * Full Code (Latest Code Status on File) Date Activated Date Inactivated Comments 06/27/2025 1:45 PM 06/27/2025 9:28 PM Healthcare Agents on File Name Relationship Healthcare Agent Relationshi p Communication Jose Alves Gta Next of Kin [phone] (Edda vaca) Care Teams Outfitter Cabin Relationship Specialty Start Date End Date Debra, Sudha Taylor [address] [place] [phone] PCP - General Family Medicine 09/07/24
--- OUTSIDE RECORDS SUMMARY | 2025-10-18 15:00 | XMS_ITS | Encounter Summary ---
Author Organization [employer] Address [address] [facility] 7t [place] [address] Care Team Providers Care Manufacturing Plant Technician Name Role Phone Sudha Richardson MD Primary Care Provider +1- [phone] Matthew Woods MD Unavailable Encounter Details Date Type Department Care Team (Late st Contact Info) Description 08/31/2024 Orders Only [facility] [address] [place] [address] Sudha Richardson MD [address] [place], [place] [phone] Social History Tobacco Use Types Packs/Day Years [...] Description 11/20/2025 3:30 PM EST Clinical Support [facility] DI[facility]ETES/NUTRITION [address] [place] [address] Roberta Mckeon, RD [address] [place] [address] documented as of this encounter Visit Diagnoses Not on filedocumented in this encounter Additional Health Concerns Assessment Noted Time PHQ-9 Depression Total Score: 24 024 9:39 AM EDT documented as of this encounter Care Teams Manufacturing Plant Technician Relationship Specialty Start Date End Date Sudha Richardson MD [address] [place] [address] PCP - General Family Medicine 10/19/18 Matthew Woods MD [address] [place] [address] Pain Medicine 09/21/24 Stephanie Rice MD [address] [place] [address] Floor, [address] [place] [address] Plastic Surgery 12/22/24 documented as of this encounter
--- OUTSIDE RECORDS SUMMARY | 2025-10-18 15:00 | XMS_ITS | Encounter Summary ---
Author Organization [facility] Address [address] [facility] [address] [place] [address] Phone Care Team Providers Care Blanket Folder Name Role Phone Debra, Sudha Biswas MD Primary Care Provi ely Reason for Referral * Physical Therapy (Routine) - Closed Specialty Diagnoses / Procedures Referred By Contac t Referred To Contact Physical Therapy Diagnoses Pelvic floor dysfunction Stephanie Rice MD Phone: tel: fax: [facility] [address] [place] [address] Phone: tel: Referral ID Status Reason Start Date Expiration Date Visits Re quested Visits Authorized [id number] Closed 05/16/2019 08/18/2019 12 12 Encounter Details Date Type Department Care Team (Latest Contact Info) Description 05/16/2019 Transcribe Orders [facility] [address] [place] [address] Stephanie Rice MD [address] [facility] 8th Floor, [address] [place] [address] Pelvic floor dysfunction (Primary Dx) Social History [...] Primary documented in this encounter Care Teams Blanket Folder Relationship Specialty Start Date End Date [place], Sudha Biswas MD [address] [place] [id number] PCP - General Family Medicine 05/11/19 documented as of this encounter Additional Source Comments The information contained in this document represents components of the legal health record. It is not the complete legal health record.[facility]
--- OUTSIDE RECORDS SUMMARY | 2025-10-18 15:00 | XMS_ITS | Clinical Summary ---
Author Organization [facility] Address [address] [facility] [address] [place] [address] Phone Care Team Providers Care Manager University Name Role Phone Sudha Richardson MD Primary [...] topic Medical Devices Not on file Insurance [facility] [employer] MEDICARE REPLACEMENT MEDICARE PART A & B [facility] [employer] MEDICARE REPLACEMENT MEDICARE PART A & B MEDICARE REPLACEMENT MEDICARE REPLACEMENT MEDICARE REPLACEMENT MEDICARE PART A & B CARE MEDICARE REPLACEMENT MEDICARE PART A & B MEDICARE PART A & B MEDICARE PART A & B Care Teams Manager University Relationship Specialty Start Date End Date [place], Sudha Biswas MD [address] [place] [id number] PCP - General Family Medicine 05/11/19 Additional Source Comments The information contained in this document represents components of the legal health record. It is not the complete legal health record.[facility]
--- OUTSIDE RECORDS SUMMARY | 2025-10-18 15:00 | XMS_ITS | Encounter Summary ---
Author Organization [employer] Address [address] [facility] 7t [place] [address] Care Team Providers Care Real Estate Listing Consultant Name Role Phone Sudha Richardson MD Primary Care Provider +1- [phone] Matthew Woods MD Unavailable Reason for Visit * Reason Comments Med Refill Encounter Details Date Type Department Care Team (Late st Contact Info) Description 03/26/2024 Refill [facility] [address] [place], [place] [phone] Sudha Richardson MD [address] [place], [place] [phone] Urinary incontinence, unspecified type Social History Tobacco [...] 11/20/2025 3:30 PM EST Clinical Support [facility] DI[facility]ETES/NUTRITION [address] [place] [address] [place] [address] documented as of this encounter Visit Diagnoses Diagnosis Urinary incontinence, unspecified type documented in this encounter Additional Health Concerns Assessment Noted Time PHQ-9 Depression Total Score: 0 12/26/19 23 2:59 PM EST documented as of this encounter Care Teams Real Estate Listing Consultant Relationship Specialty Start Date End Date Sudha Richardson MD [address] [place] [address] PCP - General Family Medicine 10/19/18 Matthew Woods MD [address] [place] [address] Pain Medicine 09/21/24 Stephanie Rice MD [address] [place] [address] 8th Floor, [address] [place] [address] Plastic Surgery 12/22/24 documented as of this encounter
--- OUTSIDE RECORDS SUMMARY | 2025-10-18 15:00 | XMS_ITS | Encounter Summary ---
Author Organization [employer] Address [address] [place] [address] 7t [place] [address] Care Team Providers Care Marketing Developer Name Role Phone Sudha Richardson MD Primary Care Provider +- [phone] Matthew Woods MD Unavailable Reason for Visit * Reason Comments Med Refill Encounter Details Date Type Department Care Team (Late st Contact Info) Description 01/23/2023 Refill [facility] MED[facility]INE [address] [place], [place] [phone] Sudha Richardson MD [address] [place], [place] [phone] Gender identity disorder of adulthood Social History [...] Description 11/20/2025 3:30 PM EST Clinical Support [facility] DIABETES/NUTRITION [address] [place] [address] Roberta Mckeon, CHARLA [address] [place] [address] documented as of this encounter Visit Diagnoses Diagnosis 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
--- OUTSIDE RECORDS SUMMARY | 2025-10-18 15:00 | XMS_ITS | Encounter Summary ---
Author Organization [employer] Address [address] [facility] 7t [place] [address] Care Team Providers Care Power Plant Manager Name Role Phone Sudha Richardson MD Primary Care Provider +1- [phone] Matthew Woods MD Unavailable Reason for Visit * Reason Comments Med Refill Encounter Details Date Type Department Care Team (Late st Contact Info) Description 05/06/[address] [facility] [address] [place] [address] Sudah Richardson MD [address] [place] [address] Seasonal allergies Social History Tobacco Use Types [...] Clinical Support [facility] DIABETES/NUTRITION [address] [place] [address] [place] [address] documented as of this encounter Visit Diagnoses Diagnosis Seasonal allergies Allergic rhinitis, cause unspecified documented in this encounter Additional Health Concerns Assessment Noted Time PHQ-9 Depression Total Score: 23 025 9:43 AM EDT documented as of this encounter Care Teams Power Plant Manager Relationship Specialty Start Date End Date Sudha Richardson MD [address] [place] [address] PCP - General Family Medicine 10/19/18 Matthew Woods MD [address] [place] [address] Pain Medicine 09/21/24 Stephanie Rice MD [address] 8th Floor, [address] [place] [address] Plastic Surgery 12/22/24 documented as of this encounter
== END 2025-10-18 13:52 | disposition home or self-care (01) ==
LOC: HO.PMC 13:37
PROVIDERS: PCP Family Medicine; Visit Provider Anesthesiology
DX: M43.06 Spondylolysis, lumbar region (principal); M17.0 Bilateral primary osteoarthritis of knee; M17.11 Unilateral primary osteoarthritis, right knee; M25.561 Pain in right knee
CPT/HCPCS: 99213

== ENCOUNTER → 2025-10-18 13:36 | Outpatient (BNVA) | payer OTHER, SELFPAY | PROVIDERS: PCP Family Medicine; Visit Provider Anesthesiology | DX: M17.0 Bilateral primary osteoarthritis of knee (principal); M43.06 Spondylolysis, lumbar region; G89.4 Chronic pain syndrome; Z79.891 Long term (current) use of opiate analgesic | CPT/HCPCS: 99212 ==